=== PATIENT | female | born 1965 ===

== ENCOUNTER 2021-01-21 14:26 | Outpatient (REF) | payer MEDICARE, MEDICAID, SELFPAY ==
--- NOTE | 2021-01-22 08:26 | MHC.AU.P13 ---
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 We had held onto the right mold while it was sent out for repair, and the mold was placed back on the instrument. Patient arrived with the left hearing aid on her right ear, with an older right mold. It was uncertain where the left mold was. Impressions were taken bilaterally for a new set of molds. We will hold onto the left hearing aid for now so it does not get lost, as patient cannot use it without a left mold. The right instrument/mold was returned to the patient . Recommendations: Patient's residence will be contacted when the new molds have arrived. Programming may need to be updated for latest audiogram at next visit. Diagnosis Code(s): Primary Diagnosis: H90.3 Bilateral Sensorineural Hearing Loss Signature: Provider: Claudia Quesada, [facility]
== END 2021-01-21 14:27 | disposition home or self-care (01) ==
LOC: HO.HAP 14:26
PROVIDERS: Visit Provider Internal Medicine
DX: Z46.1 Encounter for fitting and adjustment of hearing aid (principal)
CPT/HCPCS: V5275

== ENCOUNTER 2021-02-21 09:07 | Outpatient (REF) | payer MEDICARE, MEDICAID, SELFPAY ==
[2021-02-21 10:54] LABS: Alanine Aminotransferase 41 U/L (0-31); Albumin Level 4.4 g/dL (3.5-5.0); Alkaline Phosphatase 71 U/L (39-117); Anion Gap 12 (12-20); Aspartate Amino Transferase 25 U/L (5-31); Bilirubin Total 0.4 mg/dL (0.0-1.0); Blood Urea Nitrogen 15 mg/dL (9-16); Calcium 10.3 mg/dL (8.4-10.2); Carbon Dioxide 29 mmol/L (22-29); Chloride 101 mmol/L (96-108); Cholesterol 188 mg/dL; Estimated Glomerular Filt Rate > 60; Glucose Fasting 72 mg/dL (60-99); HDL Cholesterol 48 mg/dL; LDL Cholesterol Calculated 117 mg/dl; Potassium 5.3 mmol/L (3.3-5.1); Sodium 137 mmol/L (135-145); Total Protein 7.8 g/dL (6.5-8.0); Triglycerides 119 mg/dL
[2021-02-25 11:07] LABS: Vitamin D 25-OH, D2 <4 ng/mL; Vitamin D 25-OH, D3 64 ng/mL; Vitamin D 25-OH, Total 64 ng/mL (30-100)
== END 2021-02-21 09:08 | disposition home or self-care (01) ==
LOC: HO.LAB 09:07
PROVIDERS: PCP Internal Medicine; Visit Provider Internal Medicine
DX: E55.9 Vitamin D deficiency, unspecified (principal); E78.5 Hyperlipidemia, unspecified; J30.9 Allergic rhinitis, unspecified
CPT/HCPCS: 36415; 80053; 80061; 82306

== ENCOUNTER 2021-04-21 12:57 | Outpatient (REF) | payer MEDICARE, MEDICAID, SELFPAY | END 2021-04-21 12:58 | disposition home or self-care (01) | LOC: HO.HAP 12:57 | PROVIDERS: Visit Provider Internal Medicine | DX: Z46.1 Encounter for fitting and adjustment of hearing aid (principal); H90.3 Sensorineural hearing loss, bilateral | CPT/HCPCS: V5264 ==

== ENCOUNTER 2021-10-02 10:25 | Outpatient (REF) | payer MEDICARE, MEDICAID, SELFPAY ==
--- NOTE | ~2021-10-02 | MM_ITS ---
EXAMINATION: MM SCREENING DIGITAL BREAST TOMOSYNTHESIS, BILATERAL CLINICAL INFORMATION: Screening. Asymptomatic. The lifetime risk of breast cancer based on the Tyrer-Cuzick Model is 7%. COMPARISON: Outside mammography: 09/13/2020, 09/12/2019, 09/11/2018 ([place], [place]). TECHNIQUE: Digital breast tomosynthesis is performed in both the craniocaudal and mediolateral oblique views along with computer-aided detection (CAD). Synthesized 2D images are generated from the tomosynthesis. FINDINGS: The breasts are heterogeneously dense, which may obscure small masses (ACR BI-RADS breast composition Category c). Parenchymal pattern is similar to prior outside exams. There is no interval mass or architectural abnormality or developing density. No abnormal calcifications. Low left axillary tail node on left MLO view is stable. The contours are smooth. No significant changes. MM/MM tomosynthesis screening BI IMPRESSION: No mammographic evidence of malignancy. ASSESSMENT: BI-RADS 2: Benign RECOMMENDATION: Routine annual mammography screening. This patient's information was entered into a reminder system with a target due date for their next mammogram.
== END 2021-10-02 10:26 | disposition home or self-care (01) ==
LOC: HO.MAMMO 10:25
PROVIDERS: Visit Provider Internal Medicine
DX: Z12.31 Encounter for screening mammogram for malignant neoplasm of breast (principal)
CPT/HCPCS: 77063; 77067

== ENCOUNTER 2022-03-30 12:40 | Outpatient (REF) | payer MEDICARE, MEDICAID, SELFPAY ==
--- NOTE | 2022-03-30 16:45 | MHC.AU.AHA ---
Adult Audiological Evaluation Date of Visit: 03/30/22 Reason for Appointment: Audiological re-evaluation to monitor the status of Matilde's hearing loss. She has a known severe to profound sensorineural hearing loss bilaterally, left ear worse than right. She uses hearing aids binaurally by primarily communicates with sign language. She notes that the hearing aids need maintenance. She denies any changes to her medical history since her previous visit. Previous Hearing Test Results: [facility] [place]- Severe to profound sensorineural hearing loss in the right ear. Profound sensorineural hearing loss in the left ear. Medical History: Medical History: Vitamin D deficiency, post nasal drip/allergies Allergies: NKDA Medication List: Prozac, Remeron, Vitamin D-3, Tylenol, IC Mapap Arthritis ER, Pepcid, Claritin D, Flonase, Lubricant eye-drops Hearing Instrument History- Right Ear: Offset Printer: Vive Unique Model: [employer] B50-UP Serial Number: [id number] Battery Size: 675 Repair Warranty: 04/17/2022 Loss and Damage Warranty: 04/17/2022 Dispensed By: [facility] Date of Fittin03/23/2019 Hearing Instrument History- Left Ear: Offset Printer: Vive Unique Model: Jami B50-UP Serial Number: [id number] Battery Size: 675 Warranty: 04/17/2022 Loss and Damage Warranty: 04/17/2022 Dispensed By: [facility] Date of Fittin03/23/2019 Otoscopy: Right Ear: Unremarkable Left Ear: Unremarkable Tympanometry: Tympanometry performed due to: To assess integrity of the middle ear system Right Ear: Hypercompliant Middle Ear System (Type Ad) Left Ear: Not performed at today's visit Hearing Evaluation: Transducer(s) Used: Insert Earphones, Bone Conduction Method: Conventional Audiometry Stimuli Used: Pure Tones Right Ear: Description of Hearing: Severe sensorineural hearing loss from 250-6000 Hz and a profound hearing loss at 8000 Hz. Left Ear: Description of Hearing: Profound sensorineural hearing loss from 250-8000 Hz. Speech Recognition Threshold (SRT): Method Used: Not performed at today's visit. Word Discrimination: Method: Not performed at today's visit. Comparison: Compared to the most recent evaluation: Hearing is stable. Recommendations: Audiological re-evaluation in one year. Hearing aid maintenance performed today. Cleaned aids and earmolds, replaced tubing. Battery doors were broken and replaced with stock parts. Replaced tone hooks as well as previous were very loose. Diagnosis: Primary Diagnosis: H90.3 Bilateral Sensorineural Hearing Loss Services Performed: Pure Tone- Air & Bone (CPT 50649) Tympanometry (CPT 97037) Signature: Provider: Claudia Lovett, CCC-A
== END 2022-03-30 12:41 | disposition home or self-care (01) ==
LOC: HO.SH 12:40
PROVIDERS: Visit Provider Internal Medicine
DX: Z01.118 Encounter for examination of ears and hearing with other abnormal findings (principal); H90.3 Sensorineural hearing loss, bilateral
CPT/HCPCS: 92553; 92567; 92593; V5266

== ENCOUNTER 2022-04-29 08:37 | Outpatient (REF) | payer MEDICARE, MEDICAID, SELFPAY ==
[2022-04-29 10:44] LABS: Alanine Aminotransferase 30 U/L (0-31); Albumin Level 4.3 g/dL (3.5-5.0); Alkaline Phosphatase 75 U/L (39-117); Anion Gap 14 (12-20); Aspartate Amino Transferase 25 U/L (5-31); Bilirubin Total 0.4 mg/dL (0.0-1.0); Blood Urea Nitrogen 18 mg/dL (9-16); Calcium 10.3 mg/dL (8.4-10.2); Carbon Dioxide 28 mmol/L (22-29); Chloride 103 mmol/L (96-108); Cholesterol 236 mg/dL; Estimated Glomerular Filt Rate > 60; Glucose Fasting 83 mg/dL (60-99); HDL Cholesterol 46 mg/dL; LDL Cholesterol Calculated 154 mg/dl; Potassium 5.3 mmol/L (3.3-5.1); Sodium 140 mmol/L (135-145); Total Protein 8.2 g/dL (6.5-8.0); Triglycerides 183 mg/dL
[2022-05-03 14:21] LABS: Vitamin D 25-OH, D2 <4 ng/mL; Vitamin D 25-OH, D3 68 ng/mL; Vitamin D 25-OH, Total 68 ng/mL (30-100)
== END 2022-04-29 08:38 | disposition home or self-care (01) ==
LOC: HO.LAB 08:37
PROVIDERS: PCP Internal Medicine; Visit Provider Internal Medicine
DX: Z00.00 Encounter for general adult medical examination without abnormal findings (principal); E55.9 Vitamin D deficiency, unspecified
CPT/HCPCS: 36415; 80053; 80061; 82306

== ENCOUNTER 2022-10-12 08:15 | Outpatient (REF) | payer MEDICARE, MEDICAID, SELFPAY ==
--- NOTE | ~2022-10-12 | MM_ITS ---
EXAMINATION: MM SCREENING DIGITAL BREAST TOMOSYNTHESIS, BILATERAL CLINICAL INFORMATION: Screening. Asymptomatic. COMPARISON: Mammography: 10/02/2021; outside mammography 09/13/2020, 09/12/2019 ([facility], [place]) TECHNIQUE: Digital breast tomosynthesis is performed in both the craniocaudal and mediolateral oblique views along with computer-aided detection (CAD). Synthesized 2D images are generated from the tomosynthesis. FINDINGS: The breasts are heterogeneously dense, which may obscure small masses (ACR BI-RADS breast composition Category c). Parenchymal pattern is similar to prior studies. There is no developing density or architectural abnormality. The axilla and skin contours are unremarkable. No significant changes. There are no significant masses, abnormal calcifications, or other abnormalities. MM/MM tomosynthesis screening BI IMPRESSION: No mammographic evidence of malignancy. ASSESSMENT: BI-RADS 1: Negative RECOMMENDATION: Routine annual mammography screening. This patient's information was entered into a reminder system with a target due date for their next mammogram.
== END 2022-10-12 08:16 | disposition home or self-care (01) ==
LOC: HO.MAMMO 08:15
PROVIDERS: PCP Internal Medicine; Visit Provider Internal Medicine
DX: Z12.31 Encounter for screening mammogram for malignant neoplasm of breast (principal)
CPT/HCPCS: 77063; 77067

== ENCOUNTER 2023-02-10 10:05 | Outpatient (REF) | payer MEDICARE, MEDICAID, SELFPAY ==
[2023-02-10 11:23] LABS: Alanine Aminotransferase 28 U/L (0-31); Albumin Level 4.2 g/dL (3.5-5.0); Alkaline Phosphatase 77 U/L (39-117); Anion Gap 12 (12-20); Aspartate Amino Transferase 24 U/L (5-31); Bilirubin Total 0.6 mg/dL (0.0-1.0); Blood Urea Nitrogen 16 mg/dL (9-16); Calcium 9.9 mg/dL (8.4-10.2); Carbon Dioxide 28 mmol/L (22-29); Chloride 106 mmol/L (96-108); Cholesterol 228 mg/dL; Estimated Glomerular Filt Rate > 60; Glucose Fasting 81 mg/dL (60-99); HDL Cholesterol 45 mg/dL; Potassium 4.6 mmol/L (3.3-5.1); Sodium 141 mmol/L (135-145); Total Protein 7.6 g/dL (6.5-8.0)
[2023-02-10 11:26] LABS: LDL Cholesterol Calculated 154 mg/dl; Triglycerides 147 mg/dL
== END 2023-02-10 10:06 | disposition home or self-care (01) ==
LOC: HO.LAB 10:05
PROVIDERS: PCP Internal Medicine; Visit Provider Internal Medicine
DX: Z00.00 Encounter for general adult medical examination without abnormal findings (principal); E55.9 Vitamin D deficiency, unspecified; E78.5 Hyperlipidemia, unspecified
CPT/HCPCS: 36415; 80053; 80061; 82306

== ENCOUNTER 2023-06-14 11:09 | Outpatient (AMB) | payer MEDICARE, MEDICAID, SELFPAY ==
[2023-06-14 11:13] VITALS: BP 110/70; BMI 22.9
--- NOTE | 2023-06-14 11:13 | MHC.PC.OV ---
Vital Signs 06/14/23 11:13 Height 5 ft 1 in Weight 121 lb BMI 22.9 BP 110/70 Blood Pressure Location Lt brachial Position Sitting Intake Visit Reasons: lipids Intake Note: patient here for a follow up lipids, referral to Gastro request Bellows Filler Required: No Accompanied by: program worker Allergies No Known Allergies [No Known Allergies*] Allergy (Verified 06/14/23 11:22) Medication List - Last Reconciled 06/14/23 by Lisa Rey MD acetaminophen ER 650 mg PO Q4H PRN 30 days atorvastatin 20 mg PO BEDTIME 90 days cholecalciferol (vitamin D3) (Vitamin D3) 50 mcg PO QAM famotidine 20 mg PO BID fluoxetine (Prozac) 10 mg PO DAILY fluticasone propionate 50 mcg/actuation 2 sprays intranasal DAILY 30 days lactase (Lactaid) 3,000 units PO QID PRN loratadine-pseudoephedrine 10-240 mg ER (Claritin-D 24 Hour) 1 tab PO DAILY 30 days mirtazapine (Remeron) 30 mg PO BEDTIME polymyxin B sulf-trimethoprim 10,000 unit- 1 mg/mL (Polytrim) 1 drp ophthalmic (eye) QID 7 days Tobacco use date assessed: 04/27/23 Dental Screening Dental Screen Date: 06/14/23 Did you have a dental visit in the last 12 months?: Yes Did you have a dental problem in the last 6 months where you did not have access to dental care?: No Was dental information given to patient?: Patient has dentist (last check up 05/05/23) HPI HPI Comments History of Present Illness Details This is a 57-year-old female with pure hypercholesterolemia, mild recurrent major depression and low vitamin-D that comes accompanied by staff member complaining of abdominal pain that has been present for over 4 months. I did refer her to Gastroenterology January 2023 but they have not heard from them. She is deaf mute. Cholesterol was elevated the last time and I will repeat lipid panel. Depression stable with SSRIs. Vitamin-D levels will also be repeated. No chest pain or shortness of breath. [facility] Medical History (Updated 06/14/23 @ 12:15 by Lisa Rey MD) Allergic rhinitis Blind right eye Chronic cough Deaf mutism, congenital Depression Developmental delay, mild Encounter for physical examination Hypovitaminosis D Insomnia Mild recurrent major depression Surgical History No pertinent past surgical history Family History Father Stroke Mother Diabetes Family/Other FH: mental illness Social History Housing: Other ([facility]) Alcohol intake: never Patient Tobacco Use Status: Never used Tobacco e-Cigarette/Vaping Use: Never Used Second Hand Smoke Exposure: No service: No Current occupational status: disabled Cognitive needs: No Hearing needs: No Vision needs: No Questionnaire Thrive Questionnaire Date Thrive assessed: 02/08/23 THAI-7 AMB Questionnaire THAI-7 Date THAI - 7 assessed: 02/08/23 Source: Developed by Drs. Tim Lester, Hafsa Parsons, Navjot Calvo and colleagues, with an educational yasmine from [employer]. Review of Systems Const All systems reviewed & are unremarkable except as noted in HPI and below Eyes Reports no additional complaints, Denies change in vision and Denies other visual disturbances Card Denies chest pain at rest, Denies chest pain with activity, Denies edema, Denies irregular heart rhythm, Denies claudication, Denies dyspnea, Denies dyspnea on exertion, Denies orthopnea, Denies paroxysmal nocturnal dyspnea and Denies slow heart rate Resp Denies cough, Denies dyspnea and Denies dyspnea on exertion GI Reports abdominal pain, Denies change in bowel habits, Denies excessive flatus, Denies nausea and Denies vomiting Denies urinary incontinence, Denies urinary hesitancy and Denies urinary urgency Musc Denies abnormal gait, Denies atrophy, Denies deformity and Denies limited range of motion Skin/Breast Denies bleeding lesions, Denies changing lesions and Denies rash Neuro Denies abnormal gait and Denies lack of coordination Physical exam (Primary Care) Vital Signs: Last Vital Signs BP 110/70 06/14/23 11:13 BMI result Body Mass Index 22.9 Tobacco/Smoking Status: Tobacco use Status Tobacco use date assessed 04/27/23 06/14/23 11:21 Patient Tobacco Use Status Never used Tobacco 06/14/23 11:21 e-Cigarette/Vaping Use Never Used 06/14/23 11:21 Thrive Assessment: Date of Thrive Assessment Date Thrive assessed 02/08/23 06/14/23 11:21 Eyes General: appearance normal, both eyes and all related structures Eyelids: Yes eyelids normal Conjunctivae: conjunctivae normal Neck Neck: Yes normal visual inspection and Yes supple Resp Effort & Inspection: normal respiratory effort Auscultation: clear to auscultation bilaterally Cardio Jugular venous distension: no JVD Rate: regular rate Rhythm: regular rhythm Heart sounds: S1 normal heart sound present and S2 normal heart sound present GI Inspection: Yes normal to inspection Palpation (GI): Soft to palpation and nontender Auscultation: normal bowel sounds Extrem General: Yes full ROM Assessment and Plan Assessment & Plan (1) Mild recurrent major depression: Code(s): F33.0 - Major depressive disorder, recurrent, mild Plan: Continue SSRIs (2) Hypovitaminosis D: Code(s): E55.9 - Vitamin D deficiency, unspecified Plan: Continue vitamin-D supplements (3) Abdominal pain: Code(s): R10.9 - Unspecified abdominal pain Plan: Referral to Gastroenterology was change to a urgent. (4) Pure hypercholesterolemia: Code(s): E78.00 - Pure hypercholesterolemia, unspecified Plan: Continue statins. Repeat lipid panel. Orders: Orders Comprehensive [place]. Panel Fast Today R10.9 - Unspecified abdominal pain Lipid Panel Today E78.5 - Hyperlipidemia, unspecified Vitamin D 25-OH Total Today E55.9 - Vitamin D deficiency, unspecified Medications: Discontinued polymyxin B sulf-trimethoprim 10,000 unit- 1 mg/mL (Polytrim) while awake; do not exceed 6 doses in 24 hours Discontinued Reason: Patient Completed Course 1 drp ophthalmic (eye) QID 7 days 10 mL 0RF H10.32 - Unspecified acute conjunctivitis, left eye Coding Level of Care Code Est Pt Level 4 (40189) Diagnoses Mild recurrent major depression F33.0 Hypovitaminosis D E55.9 Abdominal pain R10.9 Pure hypercholesterolemia E78.00 Time Spent (min) 23
== END 2023-06-14 11:33 | disposition home or self-care (01) ==
PROVIDERS: Visit Provider Internal Medicine
DX: F33.0 Major depressive disorder, recurrent, mild (principal); E55.9 Vitamin D deficiency, unspecified; R10.9 Unspecified abdominal pain; E78.00 Pure hypercholesterolemia, unspecified
CPT/HCPCS: 99214

== ENCOUNTER 2023-06-24 08:00 | Outpatient (REF) | payer MEDICARE, MEDICAID, SELFPAY | END 2023-06-24 08:01 | disposition home or self-care (01) | LOC: HO.SH 08:00 | PROVIDERS: Visit Provider Internal Medicine | DX: Z01.118 Encounter for examination of ears and hearing with other abnormal findings (principal); H90.3 Sensorineural hearing loss, bilateral | CPT/HCPCS: 92553; 92567; 99499; V5266 ==

== ENCOUNTER 2023-06-28 14:24 | Outpatient (AMB) | payer MEDICARE, MEDICAID, SELFPAY ==
--- NOTE | 2023-06-28 14:37 | A.OFFVIS_ITS ---
Intake Vital Signs 06/28/23 14:38 Height 5 ft 1 in Weight 121 lb BMI 22.9 BP 121/56 L Blood Pressure Location Lt brachial Position Sitting Pulse 84 Intake Visit Reasons: Abdominal pain Intake Note: Matilde presents in the office as a new patient for abdominal pains. CC: She is here today because she is having pains in her stomach and sometimes she has vomiting. She will have pains in her back as well. She will have diarrhea. Catering Administrative Assistant Required: Yes Catering Administrative Assistant Name: [id number] [place] Allergies No Known Allergies [No Known Allergies*] Allergy (Verified 06/28/23 14:38) HPI HPI Comments History of Present Illness Details 57 y.o F with PMH of deafness, MDD, allergic rhinitis, who is here for abdominal pain x 1 year. Accompanied by her direct care . Pt initially requested an ASL but later reported that she does not understand ASL as well and therefore most of hte hx was obtained by her attendant. Reports abdominal pain started almost a year ago assoc with occasional vomiting. Also had been having diarrhea which improved with lactose free milk however pt went back to regular milk. Was started on pepcid 20 BID by PCP which has not helped her sx much. Does not appear to have had CRC screening. [facility] Medical History (Updated 06/28/23 @ 15:58 by Jen Zavala MD) Allergic rhinitis Blind right eye Chronic cough Deaf mutism, congenital Depression Developmental delay, mild Encounter for physical examination Hypovitaminosis D Insomnia Mild recurrent major depression Surgical History (Updated 06/28/23 @ 14:43 by MARSHAL De León) Hx of colonoscopy No pertinent past surgical history Family History Father Stroke Mother Diabetes Family/Other FH: mental illness Social History Housing: Other Alcohol intake: never Patient Tobacco Use Status: Never used Tobacco e-Cigarette/Vaping Use: Never Used Second Hand Smoke Exposure: No service: No Current occupational status: disabled Cognitive needs: No Hearing needs: No Vision needs: No Review of Systems Const All systems reviewed & are unremarkable except as noted in HPI and below Physical Exam Vital Signs: Last Vital Signs Pulse 84 06/28/23 14:38 BP 121/56 L 06/28/23 14:38 BMI result Body Mass Index 22.9 Gen appear: NAD HEENT: nonicteric, no cervical lymphadenopathy Chest: CTA CVS: Regular S1/S2 Abd: soft, nontender, nondistended, bowel sounds + Ext: no peripheral edema Neuro: A/Ox3, noted to move all extremities spontaneously Psych: interacting appropriately Assessment & Plan Assessment & Plan (1) Abdominal pain: Code(s): R10.9 - Unspecified abdominal pain (2) Change in bowel habit: Code(s): R19.4 - Change in bowel habit Plan DDx certainly include lactose intolerance carl since sx resolved when she briefly on lactose free milk. Will also order work up for malabsorption, celiac, IBD, biliary cause. In the meantime, pt encouraged to go back to lactose free milk for control of sx. Follow up in 6 weeks. Orders: Orders Complete Blood Count no Diff Today R10.9 - Unspecified abdominal pain Ferritin Today R10.9 - Unspecified abdominal pain IRON PROFILE Today R10.9 - Unspecified abdominal pain Transglutaminase IgA Today R10.9 - Unspecified abdominal pain Immunoglobulin A Today R10.9 - Unspecified abdominal pain TSH reflex Free T4 Today R10.9 - Unspecified abdominal pain C Reactive Protein Today R10.9 - Unspecified abdominal pain Calprotectin, Fecal Today R10.9 - Unspecified abdominal pain US abdomen complete Today R10.9 - Unspecified abdominal pain Coding Level of Care Code New Pt Level 5 (24570) Diagnoses Abdominal pain R10.9 Change in bowel habit R19.4
[2023-06-28 14:38] VITALS: BP 121/56; PULSE 84; BMI 22.9
== END 2023-06-28 15:04 | disposition home or self-care (01) ==
PROVIDERS: PCP Nurse Practitioner Family; Visit Provider Internal Medicine
DX: R10.9 Unspecified abdominal pain (principal); R19.4 Change in bowel habit
CPT/HCPCS: 99204

== ENCOUNTER → 2023-06-28 14:24 | Outpatient (BNVA) | payer MEDICARE, MEDICAID, SELFPAY | PROVIDERS: PCP Nurse Practitioner Family; Visit Provider Internal Medicine | DX: R10.9 Unspecified abdominal pain (principal); R19.4 Change in bowel habit | CPT/HCPCS: 99202 ==

== ENCOUNTER 2023-07-27 07:59 | Outpatient (REF) | payer MEDICARE, MEDICAID, SELFPAY ==
--- NOTE | ~2023-07-27 | US_ITS ---
EXAMINATION: US ABDOMEN COMPLETE CLINICAL INFORMATION: Unspecified abdominal pain. COMPARISON: None available. TECHNIQUE: Real-time imaging of the abdominal viscera. Technically difficult study secondary to bowel gas. FINDINGS: PANCREAS: The pancreas is partially obscured by bowel gas. The visualized portion appears unremarkable. ABDOMINAL AORTA: The proximal, mid, and distal segments are normal in caliber. INFERIOR VENA CAVA: Visualized portions are normal. LIVER: The liver is normal in size. The liver contour is normal. A 4 mm echogenic focus is seen in the left lobe which is of uncertain significance, possibly representing a small calcification. No hepatic mass is demonstrated. There is no intrahepatic biliary duct dilatation seen. GALLBLADDER: Normal. The gallbladder is physiologically distended without evidence of stones, sludge, polyps, wall thickening or pericholecystic fluid. COMMON BILE DUCT: Normal in caliber measuring 0.8 cm in diameter, tapering distally. No obstructing lesion is appreciated. RIGHT KIDNEY: No hydronephrosis. No renal calculi or focal parenchymal lesions. The kidney measures 8.4 cm in maximum dimension. LEFT KIDNEY: No hydronephrosis. No renal calculi or focal parenchymal lesions. The kidney measures 8.5 cm in maximum dimension. SPLEEN: Normal. The spleen measures 8.9 cm in maximum dimension. FREE FLUID: None. US/US abdomen complete IMPRESSION: The common bile duct appears focally prominent, without convincing evidence of pathologic dilatation. Clinical and laboratory correlation is recommended. 4 mm hyperechoic focus in the left lobe of liver is nonspecific, possibly representing a parenchymal calcification. This is of doubtful clinical significance.
[2023-07-27 09:00] LABS: Hematocrit 38.8 % (37.0-47.0); Mean Corpuscular HGB Conc 33.5 g/dl (31.0-35.0); Mean Corpuscular Hemoglobin 30.4 pg (27.0-33.0); Mean Corpuscular Volume 90.7 fL (80.0-98.0); Platelet Count 254 X10*3/uL (160-400); Red Blood Count 4.28 X10*6/uL (4.20-5.50); Red Cell Distribution Width 12.2 % (11.0-16.0); White Blood Count 5.9 X10*3/uL (4.8-10.8)
[2023-07-27 09:32] LABS: C Reactive Protein < 0.10 mg/dL (< or = 0.50); Iron 103 mcg/dL (30-160); Percent Iron Saturation 36 % (15-50); Total Iron Binding Capacity 288 mcg/dL (228-428); Unsaturated Iron Binding 185 ug/dL
[2023-07-27 09:50] LABS: Ferritin 48 ng/mL (10-250); TSH reflex Free T4 1.72 uIU/mL (0.32-4.0)
[2023-07-28 13:33] LABS: Transglutaminase IgA <1.0 U/mL
[2023-07-29 13:43] LABS: Immunoglobulin A 374 mg/dL (47-310)
== END 2023-07-27 08:00 | disposition home or self-care (01) ==
LOC: HO.US 07:59
PROVIDERS: Absent Provider Internal Medicine; PCP Internal Medicine; Visit Provider Internal Medicine
DX: R10.9 Unspecified abdominal pain (principal)
CPT/HCPCS: 36415; 76700; 82728; 82784; 83540; 84443; 85027; 86140; 86364

== ENCOUNTER 2023-08-17 08:00 | Outpatient (RCR) | payer MEDICARE, MEDICAID, SELFPAY ==
--- NOTE | 2023-07-26 18:32 | MHC.PT.EP ---
[facility] [place] Office [place] Office [place] Office [address] Sal Wheeler [address] [phone] F: [phone] F: [phone] F: [phone] F: [phone] Physical Therapy Plan of Care Date of Evaluation: Date of Surgery: N/A Diagnosis: sciatica, right side Assessment: Pt is a 57yo F referred to PT for sciatica. collet driller used for PT evaluation and pt's systems programmer analyst present for PT evaluation. Pt presents to PT with current impairments in pain, decreased lumbar ROM, posterior chain tightness, soft tissue restrictions, and impaired posture. Unable to formally assess MMT and sensation of B LE's as pt was unable to follow instructions for assessment consistently. She is limited functionally by prolonged standing, prolonged walking, and laying flat. She is a good candidate for skilled PT to address current impairments to facilitate return to PLOF. She is recommended to be seen 2x/week for 4 weeks and will be reassessed at that time. Frequency and Duration: The patient will be seen 2x/week for 4 weeks Short Term Goals: Pt will be I with HEP to promote self management of symptoms Pt will have centralization of symptoms Retirement Goals: Pt will achieve full ROM all planes of lumbar spine with minimal to no discomfort Pt will tolerate standing and walking > 30 min with minimal to no discomfort Treatment Plan: Modalities to reduce pain, spasms and effusion. Manual therapy to restore motion and function. Therapeutic exercise to improve strength and flexibility. Neuromuscular re-education for posture and balance. Therapeutic activities to return to functional activities of daily living. Electronically signed by: Joanna Lawrence, PT, DPT Please sign and return to therapist. Thank you for your referral.
--- NOTE | 2023-11-24 15:47 | MHC.PT.DC ---
[facility] [place] Office [place] Office [place] Office [address] [place] [address] [phone] F: [phone] F: [phone] F: [phone] F: [phone] Physical Therapy Discharge Report Diagnosis: sciatica, right side Date of Surgery: N/A Date of Evaluation: 07/25/23 Date of Discharge: 11/24/23 Treatments to Date: 5 Cancellations to Date: No Shows to Date: 2 Discharge Status: Discharge Summary: Pt was seen for skilled PT from 07/25/23-08/17/23. Pt last attended visit was 08/17/23. She had a no-show for her last 2 scheduled appointments. She is being D/C from skilled PT for visit non-compliance as she has not attended in > 30 days. Pt current level of function unknown at this time Electronically signed by: Joanna Lawrence, PT, DPT Please sign and return to therapist. Thank you for your referral.
== END 2023-11-24 15:46 | disposition home or self-care (01) ==
LOC: HO.PT 08:00
PROVIDERS: PCP Nurse Practitioner Family; Visit Provider Nurse Practitioner Family
DX: M54.31 Sciatica, right side (principal)
CPT/HCPCS: 97110; 97162

== ENCOUNTER 2023-08-26 12:32 | Outpatient (REF) | payer MEDICARE, MEDICAID, SELFPAY ==
[2023-09-02 02:14] LABS: Calprotectin, Fecal 26 mcg/g
== END 2023-08-26 12:33 | disposition home or self-care (01) ==
LOC: HO.CHCLNP 12:32
PROVIDERS: Visit Provider Internal Medicine
DX: R10.9 Unspecified abdominal pain (principal)
CPT/HCPCS: 83993

== ENCOUNTER 2023-09-21 13:08 | Outpatient (AMB) | payer MEDICARE, MEDICAID, SELFPAY ==
--- NOTE | 2023-09-21 13:14 | A.OFFVIS_ITS ---
Intake Vital Signs 09/21/23 13:16 Height 5 ft 1 in Weight 119 lb 0.794 oz BMI 22.5 BP 111/59 L Blood Pressure Location Lt brachial Position Sitting Pulse 90 Intake Visit Reasons: follow up missed 08/30 Intake Note: Matilde presents in the office as a follow up. CC: She would like to know if a EGD and COLO is something that you are going to consider. She states that she is having pains in her stomach and she has acid that comes up but it feels like vomit but she is not actually vomiting. She is having bowel movements and they are regular. General Maintenance Mechanic Required: Yes General Maintenance Mechanic Name: [id number] Rowan Allergies No Known Allergies [No Known Allergies*] Allergy (Verified 09/21/23 13:18) HPI HPI Comments History of Present Illness Details 57 y.o F with PMH of deafness, MDD, fredy rgic rhinitis, who is here for abdominal pain x 1 year. Accompanied by her direct care . 06/28/23: Pt initially requested an ASL but later reported that she does not understand ASL as well and therefore most of hte hx was obtained by her attendant. Reports abdominal pain started almost a year ago assoc with occasional vomiting. Also had been having diarrhea which improved with lactose free milk however pt went back to regular milk. Was started on pepcid 20 BID by PCP which has not helped her sx much. Does not appear to have had CRC screening. 09/21/23: Again here with her direct care. ASL available online but again state that pt is signing in non-ASL and therefore encounter was carried out with the help of her direct care provider. Pt reports difficulty swallowing certain foods such as meat, hard vegetables. Pt reports vomiting with this but direct care mentions regurgitation has been occ witnessed. With this also reports hearburn sometimes. Does not complain of obvious abd pain today. No pain on swallowing. No unintentional weight loss. No change in bowel habits. Reviewed labs with her and her attendant that all are grossly normal. No sludge or gallstones noted on US Abd. [facility] Medical History Mild recurrent major depression Encounter for physical examination Chronic cough Blind right eye Developmental delay, mild Deaf mutism, congenital Allergic rhinitis Hypovitaminosis D Insomnia Depression Surgical History Hx of colonoscopy No pertinent past surgical history Family History Father Stroke Mother Diabetes Family/Other FH: mental illness Social History Housing: Other Alcohol intake: never Patient Tobacco Use Status: Never used Tobacco e-Cigarette/Vaping Use: Never Used Second Hand Smoke Exposure: No service: No Current occupational status: disabled Cognitive needs: No Hearing needs: No Vision needs: No Review of Systems Const Details: limited ROS obtained as above Physical Exam Vital Signs: Last Vital Signs Pulse 90 09/21/23 13:16 BP 111/59 L 09/21/23 13:16 BMI result Body Mass Index 22.5 Gen appear: NAD HEENT: nonicteric, no cervical lymphadenopathy Chest: CTA CVS: Regular S1/S2 Abd: soft, nontender, nondistended, bowel sounds + Ext: no peripheral edema Neuro: A/Ox3, noted to move all extremities spontaneously Psych: repeats same complaint of gagging and vomiting but able to answer most questions Assessment & Plan Assessment & Plan (1) Dysphagia: Code(s): R13.10 - Dysphagia, unspecified (2) Regurgitation of stomach contents: Code(s): R11.10 - Vomiting, unspecified (3) Chronic heartburn: Code(s): R12 - Heartburn (4) Encounter for colorectal cancer screening: Code(s): Z12.11 - Encounter for screening for malignant neoplasm of colon; Z12.12 - Encounter for screening for malignant neoplasm of rectum Plan Ddx include reflux with esophagitis, stricture, web/ring, EoE, dysmotility. Will set her up for EGD +/- dilation for further evaluation. Since she is also due for a screening colonoscopy this will be set up at e same time. Plan: - EGD +/- dil and colo - PEG prep instructions were reviewed - night before instructions given for logistical feasibility. - Pt and caterpillar mechanic advised to cut up food in very small pieces and to chew thoroughly in the meanwhile Follow up after scopes Medications: New peg 3350-electrolytes 236-22.74-6.74 -5.86 gram (Golytely) as per prep instructions, until fecal effluent is clear 240 mL PO Q10M 4,000 mL 0RF colonoscopy Coding Level of Care Code Est Pt Level 4 (24080) Diagnoses Dysphagia R13.10 Regurgitation of stomach contents R11.10 Chronic heartburn R12 Encounter for colorectal cancer screening Z12.11; Z12.12
[2023-09-21 13:16] VITALS: BP 111/59; PULSE 90; BMI 22.5
== END 2023-09-21 14:58 | disposition home or self-care (01) ==
PROVIDERS: PCP Internal Medicine; Visit Provider Internal Medicine
DX: R13.10 Dysphagia, unspecified (principal); R11.10 Vomiting, unspecified; R12 Heartburn; Z12.11 Encounter for screening for malignant neoplasm of colon; Z12.12 Encounter for screening for malignant neoplasm of rectum
CPT/HCPCS: 99214

== ENCOUNTER → 2023-09-21 13:08 | Outpatient (BNVA) | payer MEDICARE, MEDICAID, SELFPAY | PROVIDERS: PCP Internal Medicine; Visit Provider Internal Medicine | DX: Z12.11 Encounter for screening for malignant neoplasm of colon (principal); Z12.12 Encounter for screening for malignant neoplasm of rectum; R11.10 Vomiting, unspecified; R13.10 Dysphagia, unspecified; R12 Heartburn | CPT/HCPCS: 99212 ==

== ENCOUNTER 2023-10-21 08:24 | Outpatient (REF) | payer MEDICARE, MEDICAID, SELFPAY | END 2023-10-21 08:25 | disposition home or self-care (01) | LOC: HO.MAMMO 08:24 | PROVIDERS: PCP Internal Medicine; Visit Provider Internal Medicine | DX: Z12.31 Encounter for screening mammogram for malignant neoplasm of breast (principal) | CPT/HCPCS: 77063; 77067 ==

== ENCOUNTER → 2023-10-21 08:30 | Outpatient (BNV) | payer MEDICARE, MEDICAID, SELFPAY | PROVIDERS: PCP Internal Medicine; Visit Provider Radiology Diagnostic Radiology | DX: Z12.31 Encounter for screening mammogram for malignant neoplasm of breast (principal) | CPT/HCPCS: 77063; 77067 ==

== ENCOUNTER 2024-02-13 09:31 | Outpatient (AMB) | payer MEDICARE, MEDICAID, SELFPAY ==
--- NOTE | 2024-02-13 09:33 | MHC.PC.OV ---
Vital Signs 02/13/24 09:35 Height 5 ft 1 in Weight 119 lb BMI 22.5 BP 120/68 Blood Pressure Location Lt brachial Position Sitting Intake Visit Reasons: Annual Exam Intake Note: Patient here for an annual physical exam Educational Fundraising Director Required: No Accompanied by: staff Allergies No Known Allergies [No Known Allergies*] Allergy (Verified 02/13/24 09:49) Medication List - Last Reconciled 02/13/24 by Lisa Rey MD acetaminophen ER 650 mg PO Q4H PRN 30 days atorvastatin 20 mg PO BEDTIME 90 days cholecalciferol (vitamin D3) (Vitamin D3) 50 mcg PO QAM famotidine 20 mg PO BID fluoxetine (Prozac) 10 mg PO DAILY fluticasone propionate 50 mcg/actuation 2 sprays intranasal DAILY 30 days loratadine-pseudoephedrine 10-240 mg ER (Claritin-D 24 Hour) 1 tab PO DAILY 30 days mirtazapine (Remeron) 30 mg PO BEDTIME Tobacco use date assessed: 02/13/24 Dental Screening Dental Screen Date: 02/13/24 Did you have a dental visit in the last 12 months?: Yes Did you have a dental problem in the last 6 months where you did not have access to dental care?: No Was dental information given to patient?: Patient has dentist HPI HPI Comments History of Present Illness Details This is a 58-year-old female with congenital deaf mutism and mild recurrent major depression that comes accompanied by staff member for her physical exam. She will need ear, nose, throat referral for her hearing loss. Depression has been follow by Psychiatry and has been stable. Declines Pap smear. Colonoscopy with endoscopy will be done this month. Mammogram done September 2023 and was normal. No chest pain or shortness of breath. Complains of left leg pain that started few weeks ago. Ultrasound venous duplex of left lower leg well be ordered to rule out DVT. Also has some vein insufficiency. [facility] Medical History (Updated 02/13/24 @ 10:08 by Lisa Rey MD) Mild recurrent major depression Encounter for physical examination Chronic cough Blind right eye Developmental delay, mild Deaf mutism, congenital Allergic rhinitis Hypovitaminosis D Insomnia Depression Surgical History Hx of colonoscopy Family History Father Stroke Mother Diabetes Family/Other FH: mental illness Social History Housing: Other Alcohol intake: never Patient Tobacco Use Status: Never used Tobacco e-Cigarette/Vaping Use: Never Used Second Hand Smoke Exposure: No service: No Current occupational status: disabled Cognitive needs: No Hearing needs: Yes Vision needs: Yes Questionnaire PHQ-9 Over the last 2 weeks, how often have you been bothered by any of the following problems? 1. Little interest or pleasure in doing things: not at all 2. Feeling down, depressed, or hopeless: not at all 3. Trouble falling or staying asleep, or sleeping too much: not at all 4. Feeling tired or having little energy: not at all 5. Poor appetite or overeating: not at all 6. Feeling bad about yourself - or that you are a failure or have let yourself or your family down: not at all 7. Trouble concentrating on things, such as reading the newspaper or watching television: not at all 8. Moving or speaking so slowly that other people could have noticed. Or the opposite - being so fidgety or restless that you have been moving around a lot more than usual: not at all 9. Thoughts that you would be better off or of hurting yourself in some way: not at all Total score: 0 Depression Screening Interpretation: Negative Depression Screening Done: Yes 43170 - PHQ-9 Billing: Yes Source: Developed by Drs. Tim Lester, Hafsa Parsons, Navjot Calvo and colleagues, with an educational yasmine from [employer]. Thrive Questionnaire Date Thrive assessed: 02/13/24 I am a: Parent/Caregiver What is your living situation today?: I have a steady place to live Within the past 12 months, did the food you bought not last and you didn't have the money to get more?: Never true Within the past 12 months, did you worry whether your food would run out before you got money to buy more?: Never true Do you have trouble paying for medicines?: No Do you have trouble getting transportation to medical appointments?: No Do you have trouble paying your heating and electricity bill?: No Do you have trouble taking care of your child, family member or friend?: No Do you have trouble with day-to-day activities such as bathing, preparing meals, shopping, managing finances, etc.?: No Are you currently unemployed and looking for a job?: No Are you interested in more education?: No Please select the resources that you would like help with: None Currently or been in a relationship where the following occur: no concerns reported THRIVE Score: 0 AUDIT C Alcohol Use Questionnaire (AUDIT-C) 1. How often do you have a drink containing alcohol?: Never Total Score: 0 THAI-7 AMB Questionnaire THAI-7 Date THAI - 7 assessed: 02/13/24 Feeling nervous, anxious, or on edge: 0 = Not at all Not being able to stop or control worryin = Not at all Worrying too much about different things: 0 = Not at all Trouble relaxin = Not at all Being so restless that it is hard to sit still: 0 = Not at all Becoming easily annoyed or irritable: 0 = Not at all Feeling afraid as if something awful might happen: 0 = Not at all Total THAI-7 score (0-4 normal; 5-9 mild; 10-14 moderate; 15-21 severe): 0 Source: Developed by Drs. Tim Lester, Hafsa Parsons, Navjot Calvo and colleagues, with an educational yasmine from [employer]. THAI-7 Assessment Billing THAI-7 Assessment Tool: THAI-7 Assessment 73225 Review of Systems Const All systems reviewed & are unremarkable except as noted in HPI and below Eyes Reports no additional complaints, Denies change in vision and Denies other visual disturbances Card Denies chest pain at rest, Denies chest pain with activity, Denies edema, Denies irregular heart rhythm, Denies claudication, Denies dyspnea, Denies dyspnea on exertion, Denies orthopnea, Denies paroxysmal nocturnal dyspnea and Denies slow heart rate Resp Denies cough, Denies dyspnea and Denies dyspnea on exertion GI Denies abdominal pain, Denies change in bowel habits, Denies excessive flatus, Denies nausea and Denies vomiting Denies urinary incontinence, Denies urinary hesitancy and Denies urinary urgency Musc Denies atrophy, Denies deformity and Denies limited range of motion Physical exam (Primary Care) Vital Signs: Last Vital Signs BP 120/68 02/13/24 09:35 BMI result Body Mass Index 22.5 Tobacco/Smoking Status: Tobacco use Status Tobacco use date assessed 02/13/24 02/13/24 09:46 Patient Tobacco Use Status Never used Tobacco 02/13/24 09:46 e-Cigarette/Vaping Use Never Used 02/13/24 09:46 PHQ-9: PHQ-9 Score PHQ-9: Total score 0 02/13/24 09:55 Depression Screening Interpretation: Negative Thrive Assessment: Date of Thrive Assessment Date Thrive assessed 02/13/24 02/13/24 09:46 Currently or been in a relationship where the following occur: no concerns reported Const Orientation/consciousness: patient oriented x3 HENID Head: Yes normal to inspection, Yes normocephalic and Yes atraumatic Ears: external ears normal Eyes General: appearance normal, both eyes and all related structures Eyelids: Yes eyelids normal Conjunctivae: conjunctivae normal Neck Neck: Yes normal visual inspection and Yes supple Resp Effort & Inspection: normal respiratory effort Auscultation: clear to auscultation bilaterally Cardio Jugular venous distension: no JVD Rate: regular rate Rhythm: regular rhythm Heart sounds: S1 normal heart sound present and S2 normal heart sound present GI Inspection: Yes normal to inspection Palpation (GI): Soft to palpation and nontender Auscultation: normal bowel sounds Skin General skin exam: no rashes or lesions noted Neuro General: patient oriented x3 and no focal motor deficits Extrem Other: left chandler's positive General: Yes full ROM Psych Appearance: grossly normal Assessment and Plan Assessment & Plan (1) Physical exam: Code(s): Z00.00 - Encounter for general adult medical examination without abnormal findings Plan: Repeat in a year. (2) Mild recurrent major depression: Code(s): F33.0 - Major depressive disorder, recurrent, mild Plan: Follow-up with psychiatry. Orders: Orders US venous duplex LE LT Today M79.605 - Pain in left leg Lipid Panel Today E78.5 - Hyperlipidemia, unspecified Comprehensive Met. Panel Today Z00.00 - Encounter for general adult medical examination without abnormal findings Vitamin D 25-OH Total Today E55.9 - Vitamin D deficiency, unspecified Referrals Vascular Surgery Referral I87.2 - Venous insufficiency (chronic) (peripheral) Ear/Nose/Throat Referral H91.90 - Unspecified hearing loss, unspecified ear Coding Level of Care Code Est Pt Prev Care 40-64y(82283) Diagnoses Physical exam Z00.00 Mild recurrent major depression F33.0 Additional Codes THAI-7 Assessment Billing - THAI-7 Assessment Tool: THAI-7 Assessment 96189 ([id number]) Time Spent (min) 33
[2024-02-13 09:35] VITALS: BP 120/68; BMI 22.5
== END 2024-02-13 10:08 | disposition home or self-care (01) ==
PROVIDERS: Visit Provider Internal Medicine
DX: Z00.00 Encounter for general adult medical examination without abnormal findings (principal); F33.0 Major depressive disorder, recurrent, mild; H91.3 Deaf nonspeaking, not elsewhere classified; M79.605 Pain in left leg
CPT/HCPCS: 99396

== ENCOUNTER 2024-02-13 10:28 | Outpatient (REF) | payer MEDICARE, MEDICAID, SELFPAY ==
--- NOTE | ~2024-02-13 | US_ITS ---
EXAMINATION: US VENOUS ULTRASOUND WITH DOPPLER LOWER EXTREMITY, LEFT CLINICAL INFORMATION: Left lower extremity pain COMPARISON: None available. TECHNIQUE: Ultrasound of the deep veins is performed from the hip to the calf with compression sonography and color and pulse Doppler assessment. Spectral analysis with color-flow imaging is performed. FINDINGS: There is normal venous compression and respiratory variation and augmented flow. The visualized common femoral vein, superficial femoral vein, profunda femoral vein, popliteal vein, and the trifurcation region shows no evidence of deep venous thrombosis. There is a 3.5 x 0.8 x 2.2 cm Guillory's cyst present . If the patient's symptoms persist, followup ultrasound in 5 days 7 days might be of value to exclude proximal propagation from a non-visualized calf vein. US/US venous duplex LE IMPRESSION: No DVT demonstrated in the left lower extremity.
== END 2024-02-13 10:29 | disposition home or self-care (01) ==
LOC: HO.US 10:28
PROVIDERS: Visit Provider Internal Medicine
DX: M79.605 Pain in left leg (principal)
CPT/HCPCS: 93971

== ENCOUNTER 2024-02-23 06:13 | Day surgery (SDC) | payer MEDICARE, MEDICAID, SELFPAY ==
--- NOTE | 2024-02-22 09:47 | HO.ANESPROP2 ---
HPI - Anesthesia Eval Consult details Narrative: 58yo F for Upper Endoscopy with Balloon Dilitation, Colonoscopy ASL PMFSH Active Problems Active Problems: All Active Problems (Updated 02/13/24 @ 10:08 by Lisa Rey MD) Venous insufficiency (Acute) Left leg pain (Acute) Encounter for colorectal cancer screening (Acute) Chronic heartburn (Acute) Regurgitation of stomach contents (Acute) Dysphagia (Acute) Change in bowel habit (Acute) Pure hypercholesterolemia (Acute) Sciatica, right side (Acute) Hearing loss (Acute) Abdominal pain (Acute) Physical exam (Acute) Mild recurrent major depression (Acute) Encounter for physical examination (Acute) Chronic cough (Acute) Blind right eye (Acute) Developmental delay, mild (Acute) Deaf mutism, congenital (Acute) Allergic rhinitis (Acute) Hypovitaminosis D (Acute) Insomnia (Acute) Past Medical History Medical History GERD (gastroesophageal reflux disease) Mild recurrent major depression Encounter for physical examination Chronic cough Blind right eye Developmental delay, mild Deaf mutism, congenital Allergic rhinitis Hypovitaminosis D Insomnia Depression Family History Family History Father Stroke Mother Diabetes Family/Other FH: mental illness Surgical History Surgical History Hx of colonoscopy Social History Social History Housing: Other Alcohol intake: never Patient Tobacco Use Status: Never used Tobacco e-Cigarette/Vaping Use: Never Used Second Hand Smoke Exposure: No service: No Current occupational status: disabled Cognitive needs: No Hearing needs: Yes Vision needs: Yes Meds Allergies Allergy/AdvReac Type Severity Reaction Status Date / Time No Known Allergies Allergy Verified 02/23/24 07:10 [No Known Allergies*] Home Medications Medication Instructions Recorded Confirmed Last Taken Type fluoxetine 10 mg capsule (Prozac) 10 mg PO DAILY 01/21/21 02/13/24 Unknown History mirtazapine 30 mg tablet (Remeron) 30 mg PO BEDTIME 12/01/21 02/13/24 Unknown History Assessment and Plan Assessment Anesthesia Assessment: Chart Reviewed
[2024-02-23 07:13] VITALS: BMI 22.5
[2024-02-23 07:25] VITALS: BP 107/63; PULSE 87; RESP 15; TEMP 36.7; O2SAT 95
[2024-02-23] MEDS: Lactated Ringers 1,000 ML 100 ML IVCONT (07:36)
--- NOTE | 2024-02-23 07:36 | HO.ANESPROP2 ---
[facility] Active Problems Active Problems: All Active Problems (Updated 02/23/24 @ 07:34 by Claudia Neville RN) Venous insufficiency (Acute) Left leg pain (Acute) Encounter for colorectal cancer screening (Acute) Chronic heartburn (Acute) Regurgitation of stomach contents (Acute) Dysphagia (Acute) Change in bowel habit (Acute) Pure hypercholesterolemia (Acute) Sciatica, right side (Acute) Hearing loss (Acute) Abdominal pain (Acute) Physical exam (Acute) Mild recurrent major depression (Acute) Encounter for physical examination (Acute) Chronic cough (Acute) Blind right eye (Acute) Developmental delay, mild (Acute) Deaf mutism, congenital (Acute) Allergic rhinitis (Acute) Hypovitaminosis D (Acute) Insomnia (Acute) Past Medical History Medical History GERD (gastroesophageal reflux disease) Mild recurrent major depression Encounter for physical examination Chronic cough Blind right eye Developmental delay, mild Deaf mutism, congenital Allergic rhinitis Hypovitaminosis D Insomnia Depression Functional capacity: independent ambulation Patient : No Family History Family History Father Stroke Mother Diabetes Family/Other FH: mental illness Family history of problems with anesthesia: No Surgical History Surgical History Hx of colonoscopy History of Problems with Anesthesia: No Social History Social History Housing: Other Alcohol intake: never Patient Tobacco Use Status: Never used Tobacco e-Cigarette/Vaping Use: Never Used Second Hand Smoke Exposure: No Use of substances other than those prescribed or required for medical reasons: No Are you DNR?: No Advance Directives: No Advance Directives Information Provided: Yes service: No Current occupational status: disabled Cognitive needs: No Hearing needs: Yes Vision needs: Yes Meds Allergies Allergy/AdvReac Type Severity Reaction Status Date / Time No Known Allergies Allergy Verified 02/23/24 07:10 [No Known Allergies*] Active Medications: Current Medications Lactated Ringer's (Lr) 1,000 mls @ 100 mls/hr IVCONT .Q10H [facility] Home Medications Medication Instructions Recorded Confirmed Last Taken Type fluoxetine 10 mg capsule (Prozac) 10 mg PO DAILY 02/24/21 03/18/24 Unknown History mirtazapine 30 mg tablet (Remeron) 30 mg PO BEDTIME 12/01/21 02/13/24 Unknown History Exam Height,Weight and Vital Signs: Height 5 ft Weight 52.254 kg Last Vital Signs Temp 98.1 F 02/23/24 07:25 Pulse 87 02/23/24 07:25 Resp 15 02/23/24 07:25 BP 107/63 02/23/24 07:25 Pulse Ox 95 02/23/24 07:25 O2 Del Method Room Air 02/23/24 07:25 Airway Mallampati Class: III TM Dist: >3cm Neck ROM: Full Heart: RRR Lungs: CTA Assessment and Plan Assessment Anesthesia Assessment: Anesthesia Plan Discussed Final Anesthetic Review Family History of Problems with Anesthesia: No History of Problems with Anesthesia: No NPO: Yes ASA Class: V Final Preanesthetic Review: Meds/Allgs Chart Reviewed, Consent Obtained/Reviewed and Anes Risks/Benef Reviewed Patient Risk: Low Procedure Risk: Low Anesthetic Plan Anesthetic Plan: MAC: Disposition: Standard PACU
--- NOTE | 2024-02-23 08:21 | MHC.SHP ---
Pre-Procedural Eval Section A - 24 Hr Update-Section A only Date of Service: 02/23/24 Section B - Complete if H&P > 30 days Chief Complaint: vomiting,heartburn,screening,dysphagia Details of Present Illness: Mild recurrent major depression Encounter for physical examination Chronic cough Blind right eye Developmental delay, mild Deaf mutism, congenital Allergic rhinitis Hypovitaminosis D Insomnia Depression Surgical History Hx of colonoscopy No pertinent past surgical history Allergies: Allergies Allergy/AdvReac Type Severity Reaction Status Date / Time No Known Allergies Allergy Verified 02/23/24 07:10 [No Known Allergies*] Review of Systems Review of Systems Comment: Limited ROS with the help of safety and skill based pay manager as above Exam Exam Comment: Gen appear: No acute distress HEENT: no icterus Chest: No overt resp distress Abd: soft, nontender, nondistended Psych: Stable affect, answering questions appropriately Neuro: A/Ox3 noted to move all extremities spontaneously Ext: no peripheral edema Plan Diagnosis/Plan: Unchanged I have reviewed the history and physical and performed a pertinent physical examination on my patient. No changes have occurred unless specified. Consent obtained from the sister/legal guardian with fisher trot line and safety and skill based pay manager present at bedside Time Spent With Patient Time: Total time managing care of this patient today ____ minutes.
--- NOTE | 2024-02-23 08:24 | P.OP_ITS ---
Operative Note Operative Note Date of Service: 02/23/24 Narrative: Procedure: Esophagogastroduodenoscopy and colonoscopy Endoscopist: Jen Zavala MD Indication: GERD, vomiting, dysphagia, screening Anesthesia Provider: Dr Denise Chavez Anesthesia Type: MAC Instrument: Olympus GIF-H190 and PCF-H190L ?? EGD Procedure:?? The procedure, indications, preparation and potential complications were reviewed with the patient, who indicated understanding and gave written informed consent to proceed. A physical exam was performed. The endoscope was introduced through the mouth, and advanced to the duodenum. The mucosa was carefully examined on slow withdrawal of the endoscope. The patient tolerated the procedure well. There were no immediate complications.? ? EGD Findings:? * Esophagus:? Normal mucosa noted in the entire esophagus. The Z line was at 32 cm. There was a non-obstructing Schatzki's ring. There was a large hiatal hernia with the diaphragmatic pinch at 37 cm. Middle and lower esophagus biopsies were taken to rule out eosinophilic esophagitis. * Stomach:? Scant erosions and heme noted in the body and antrum. Small numerous polyps in the fundus. Few of these were biopsied with forceps. Retroflexion in the cardia showed healed grade 3 hiatal hernia with Jamshid erosions. Random cold forceps biopsies were taken to rule out H pylori. * Duodenum:? Normal to the extent examined. Cold forceps biopsies were taken of the duodenal bulb and 2nd portion of duodenal to rule out celiac sprue. Additional intervention: A soft tipped Savary wire was introduced through the biopsy channel of the gastroscope and advanced to the antrum. The gastroscope was then backed out. A Savary Kyle bougie was advanced over the guidewire and the esophagus was dilated to 18 mm. On relook, there was no tear or heme noted. Colonoscopy Procedure: The patient was then turned for the colonoscopy. A digital rectal exam was performed which was abnormal due to finding of ext hemorrhoids. A distal attachment cap was affixed to the tip of the colonoscope which was then inserted through the anus and advanced through the colon to the cecum at 80 cm and terminal ileum. Mucosa was carefully examined under high definition white light as the instrument was slowly withdrawn in a retrograde panoramic fashion. Retroflexion was performed in rectum. The procedure was not difficult. There were no immediate obvious complications. The quality of the prep was BBPS: 2+2+3 = adequate Withdrawal time 12 minutes. Limitations: No limitations. Findings: Mucosa: Normal to cecum and terminal ileum. Protruding lesions: * 1 sessile polyp of size 5 mm in descending. Cold forceps polypectomy was performed. The polyp was completely removed and retrieved. * Medium internal hemorrhoids without stigmata of recent bleeding. Excavated lesions: * Scattered diverticulosis of the left colon Impression: * Non-obstructing Schatzki's ring * Hiatal hernia * Jamshid erosions * Gastritis * Duodenitis * Normal colon and terminal ileum mucosa * Total of 1 polyp removed * Internal and external hemorrhoids Recommendations * Follow biopsy results. Our office will call or send a letter with results within 7-10 days. * Stop Pepcid, start omeprazole 20 mg once daily * Avoid NSAIDs * Repeat colonoscopy in 5-7 years depending on the results of the polyp.
[2024-02-23 09:16] VITALS: BP 100/52; PULSE 79; RESP 16; TEMP 36.3; O2SAT 99
[2024-02-23 09:31] VITALS: BP 124/66; PULSE 79; RESP 16; O2SAT 99
--- NOTE | 2024-02-23 11:59 | HO.POSTANES ---
Post Anesthesia Evaluation Post Anesthesia Evaluation Date of Service: 02/23/24 Vital Signs: Vital Signs Temp Pulse Resp BP Pulse Ox O2 Del Method 02/23/24 09:31 79 16 124/66 99 Room Air 02/23/24 09:16 97.3 F 79 16 100/52 L 99 Room Air 02/23/24 07:25 98.1 F 87 15 107/63 95 Room Air Anesthesia: Monitored Mental Status: Awake Pain Control: Satisfactory Nausea/Vomiting: None Hydration: Adequate Anesthesia-Related Issues: No Anes. Related Issues
== END 2024-02-23 09:47 | disposition home or self-care (01) ==
PROVIDERS: PCP Internal Medicine; Visit Provider Internal Medicine
PROC: (CPT 45380; principal; 2024-02-23 08:00)
PROC: 0DJD8ZZ Inspection of Lower Intestinal Tract, Via Natural or Artificial Opening Endoscopic (ICD-10-PCS; CPT 45378; 2024-02-23 08:00)
DX: Z12.11 Encounter for screening for malignant neoplasm of colon (principal); K63.5 Polyp of colon; K57.30 Diverticulosis of large intestine without perforation or abscess without bleeding; K64.4 Residual hemorrhoidal skin tags; K64.8 Other hemorrhoids; R11.10 Vomiting, unspecified; R13.10 Dysphagia, unspecified; K25.4 Chronic or unspecified gastric ulcer with hemorrhage; K21.9 Gastro-esophageal reflux disease without esophagitis; K29.50 Unspecified chronic gastritis without bleeding; K31.7 Polyp of stomach and duodenum; K29.80 Duodenitis without bleeding; K44.9 Diaphragmatic hernia without obstruction or gangrene; F33.2 Major depressive disorder, recurrent severe without psychotic features; H91.3 Deaf nonspeaking, not elsewhere classified; R62.50 Unspecified lack of expected normal physiological development in childhood; E55.9 Vitamin D deficiency, unspecified; G47.00 Insomnia, unspecified; Z79.899 Other long term (current) drug therapy
CPT/HCPCS: 45380; 43248; 43239; 88305; 88313; 88342; C1769; J2704

== ENCOUNTER → 2024-02-23 06:13 | Outpatient (BNV) | payer MEDICARE, MEDICAID, SELFPAY | PROVIDERS: PCP Internal Medicine; Visit Provider Internal Medicine | DX: K21.9 Gastro-esophageal reflux disease without esophagitis (principal); K22.2 Esophageal obstruction; K25.4 Chronic or unspecified gastric ulcer with hemorrhage; K31.7 Polyp of stomach and duodenum; Z12.11 Encounter for screening for malignant neoplasm of colon; K63.5 Polyp of colon; K57.90 Diverticulosis of intestine, part unspecified, without perforation or abscess without bleeding; K64.8 Other hemorrhoids | CPT/HCPCS: 43239; 43248; 45380 ==

== ENCOUNTER 2024-03-05 14:50 | Outpatient (AMB) | payer MEDICARE, MEDICAID, SELFPAY ==
--- NOTE | 2024-03-05 14:54 | A.OFFVIS_ITS ---
Intake Vital Signs 03/05/24 15:00 Height 5 ft Weight 119 lb 0.794 oz BMI 23.2 BP 110/61 Blood Pressure Location Lt brachial Position Sitting Pulse 85 Intake Visit Reasons: s/p egd/colon Intake Note: Matilde presents in the office as a follow up egd and colo. CC: here today for the results. Allergies No Known Allergies [No Known Allergies*] Allergy (Verified 03/05/24 15:01) HPI HPI Comments History of Present Illness Details 57 y.o F with PMH of deafness, MDD, fredy rgic rhinitis, who is here for abdominal pain x 1 year. Accompanied by her direct care . 06/28/23: Pt initially requested an ASL but later reported that she does not understand ASL as well and therefore most of hte hx was obtained by her attendant. Reports abdominal pain started almost a year ago assoc with occasional vomiting. Also had been having diarrhea which improved with lactose free milk however pt went back to regular milk. Was started on pepcid 20 BID by PCP which has not helped her sx much. Does not appear to have had CRC screening. 09/21/23: Again here with her direct care. ASL available online but again state that pt is signing in non-ASL and therefore encounter was carried out with the help of her direct care provider. Pt reports difficulty swallowing certain foods such as meat, hard vegetables. Pt reports vomiting with this but direct care mentions regurgitation has been occ witnessed. With this also reports hearburn sometimes. Does not complain of obvious abd pain today. No pain on swallowing. No unintentional weight loss. No change in bowel habits. Reviewed labs with her and her attendant that all are grossly normal. No sludge or gallstones noted on US Abd. 02/23/24: * Non-obstructing Schatzki's ring * Hiatal hernia * Jamshid erosions * Gastritis * Duodenitis * Normal colon and terminal ileum mucosa * Total of 1 polyp removed * Internal and external hemorrhoids A. Duodenum, biopsy: Duodenal mucosa within normal limits. B. Stomach, random, biopsy: Antral-type and oxyntic mucosa with mild chronic inactive inflammation; no Helicobacter organisms seen. C. Stomach, polyps, biopsy: Fundic gland polyps with background mild chronic inactive inflammation; no Helicobacter organisms seen. D. GE junction, biopsy: - Cardiac-type mucosa with moderate critical care rn sung inactive inflammation and multilayered epithelium; no fully developed intestinal metaplasia seen. - Squamous mucosa within normal limits. E. Esophagus, middle, biopsy: Active esophagitis (maximum eosinophil count 5 per high powered field with admixed neutrophils). F. Colon, ascending, polypectomy: Colonic mucosa with mild surface hyperplastic changes; multiple additional levels examined 03/05/24: Here with her direct care. EGD/colo findings reviewed. Confirmed that pt has in fact switched to omeprazole. [facility] Medical History (Updated 03/07/24 @ 14:56 by Jen Zavala MD) GERD (gastroesophageal reflux disease) Mild recurrent major depression Encounter for physical examination Chronic cough Blind right eye Developmental delay, mild Deaf mutism, congenital Allergic rhinitis Hypovitaminosis D Insomnia Depression Surgical History (Updated 03/05/24 @ 15:03 by MARSHAL De León) History of esophagogastroduodenoscopy (EGD) Hx of colonoscopy Family History Father Stroke Mother Diabetes Family/Other FH: mental illness Social History Housing: Other Alcohol intake: never Patient Tobacco Use Status: Never used Tobacco e-Cigarette/Vaping Use: Never Used Second Hand Smoke Exposure: No service: No Current occupational status: disabled Cognitive needs: No Hearing needs: Yes Vision needs: Yes Review of Systems Const Other (limited ROS as pt does not use ASL ) Physical Exam Vital Signs: Last Vital Signs Pulse 85 03/05/24 15:00 BP 110/61 03/05/24 15:00 BMI result Body Mass Index 23.2 NAD Nonicteric Abd soft, nontender, nondistended Assessment & Plan Assessment & Plan (1) Encounter for colorectal cancer screening: Code(s): Z12.11 - Encounter for screening for malignant neoplasm of colon; Z12.12 - Encounter for screening for malignant neoplasm of rectum (2) Abdominal pain: Code(s): R10.9 - Unspecified abdominal pain (3) Gastritis and duodenitis: Code(s): K29.90 - Gastroduodenitis, unspecified, without bleeding Plan REviewed with the pt and her direct care of findings of gastritis and duodenitis on EGD. H Pylori negative. Cont PPI as reviewed after procedure Avoid trigger foods Repeat colo for asymptomatic crc screening in 5-7 years due to prep Follow up 6 months Coding Level of Care Code Est Pt Level 4 (56105) Diagnoses Encounter for colorectal cancer screening Z12.11; Z12.12 Abdominal pain R10.9 Gastritis and duodenitis K29.90
[2024-03-05 15:00] VITALS: BP 110/61; PULSE 85; BMI 23.2
== END 2024-03-05 15:30 | disposition home or self-care (01) ==
PROVIDERS: PCP Internal Medicine; Visit Provider Internal Medicine
DX: K29.90 Gastroduodenitis, unspecified, without bleeding (principal); K63.5 Polyp of colon
CPT/HCPCS: 99214

== ENCOUNTER → 2024-03-05 14:50 | Outpatient (BNVA) | payer MEDICARE, MEDICAID, SELFPAY | PROVIDERS: PCP Internal Medicine; Visit Provider Internal Medicine | DX: Z12.11 Encounter for screening for malignant neoplasm of colon (principal); Z12.12 Encounter for screening for malignant neoplasm of rectum; K29.90 Gastroduodenitis, unspecified, without bleeding; R10.9 Unspecified abdominal pain | CPT/HCPCS: 99212 ==

== ENCOUNTER 2024-04-20 08:40 | Outpatient (AMB) | payer MEDICARE, MEDICAID, SELFPAY ==
[2024-04-20 08:46] VITALS: BP 118/70; PULSE 74; TEMP 36.6; O2SAT 98
--- NOTE | 2024-04-20 08:46 | AM.OFFWIN_ITS ---
Intake Vital Signs 04/20/24 08:46 Height 5 ft BP 118/70 Blood Pressure Location Rt brachial Position Sitting Pulse 74 Pulse Source Pulse Oximeter Temp 97.9 F Temp Source Oral Pulse Oximetry (%) 98 Intake Visit Reasons: EP Rt shoulder pain/cyst Intake Note: pt is here for right shoulder pain Patient Tobacco Use Status: Never used Tobacco Allergies No Known Allergies [No Known Allergies*] Allergy (Verified 04/20/24 08:48) Do you need a note to return to daycare/school/sports/work: No HPI HPI Comments History of Present Illness Details 58 y/o female patient who presents to [facility] in clinic with c/o a small tender cyst filled with yellow discharge. Pt is not verbal - she is deaf. Accompanied by animal care attendant who assists with history taking. [facility] Medical History (Updated 03/07/24 @ 14:56 by Jen Zavala MD) GERD (gastroesophageal reflux disease) Mild recurrent major depression Encounter for physical examination Chronic cough Blind right eye Developmental delay, mild Deaf mutism, congenital Allergic rhinitis Hypovitaminosis D Insomnia Depression Surgical History (Updated 03/05/24 @ 15:03 by MARSHAL De León) History of esophagogastroduodenoscopy (EGD) Hx of colonoscopy Family History Father Stroke Mother Diabetes Family/Other FH: mental illness Social History Housing: Other Alcohol intake: never Patient Tobacco Use Status: Never used Tobacco e-Cigarette/Vaping Use: Never Used Second Hand Smoke Exposure: No service: No Current occupational status: disabled Cognitive needs: No Hearing needs: Yes Vision needs: Yes Review of Systems Const All systems reviewed & are unremarkable except as noted in HPI and below Physical Exam Vital Signs: Last Vital Signs Temp 97.9 F 04/20/24 08:46 Pulse 74 04/20/24 08:46 BP 118/70 04/20/24 08:46 Pulse Ox 98 04/20/24 08:46 Const General: comfortable and no acute distress Orientation/consciousness: patient oriented x3 Neck Neck: Yes full ROM, Yes no lymphadenopathy and Yes supple Skin Lesions: lesion noted (right upper shoulder, back of neck. Small cyst filled with pus. ) Neuro General: patient oriented x3 Extrem Right upper extremity: shoulder/upper arm (A Small cyst filled with yellow fluid. ) Details: tenderness Location: of the clavicle; no swelling Assessment & Plan Assessment & Plan (1) Abscess of skin and subcutaneous tissue: Code(s): L02.91 - Cutaneous abscess, unspecified Qualifiers: Site of cutaneous abscess: extremity Site of cutaneous abscess of extremity: upper extremity Laterality: right Qualified Code(s): L02.413 - Cutaneous abscess of right upper limb Plan: - Warm compress to facilitate drainage - Topical Abx - Acetaminophen for pain relief Coding Level of Care Code Est Pt Level 3 (83511) Diagnoses Cutaneous abscess of right upper extremity L02.413 Site of cutaneous abscess: extremity Site of cutaneous abscess of extremity: upper extremity Laterality: right Time Spent (min) 15
== END 2024-04-20 09:25 | disposition home or self-care (01) ==
PROVIDERS: PCP Internal Medicine; Visit Provider Nurse Practitioner Family
DX: L02.413 Cutaneous abscess of right upper limb (principal)
CPT/HCPCS: 99213

== ENCOUNTER 2024-06-09 08:34 | Outpatient (REF) | payer MEDICARE, MEDICAID, SELFPAY ==
[2024-06-09 10:34] LABS: Alanine Aminotransferase 28 U/L (0-31); Albumin Level 4.4 g/dL (3.5-5.0); Alkaline Phosphatase 80 U/L (39-117); Anion Gap 10 (12-20); Aspartate Amino Transferase 26 U/L (5-31); Bilirubin Total 0.4 mg/dL (0.0-1.0); Blood Urea Nitrogen 12 mg/dL (9-16); Calcium 10.2 mg/dL (8.4-10.2); Carbon Dioxide 31 mmol/L (22-29); Chloride 104 mmol/L (96-108); Cholesterol 141 mg/dL (<200); Estimated Glomerular Filt Rate > 60; Glucose Fasting 90 mg/dL (60-99); Glucose Random 89 mg/dL (60-115); HDL Cholesterol 47 mg/dL (>40); LDL Cholesterol Calculated 74 mg/dL (<100); Potassium 4.3 mmol/L (3.3-5.1); Sodium 141 mmol/L (135-145); Triglycerides 101 mg/dL (<150)
[2024-06-09 10:49] LABS: Vitamin D 25-OH Total 76.9 ng/mL (>30)
== END 2024-06-09 08:35 | disposition home or self-care (01) ==
LOC: HO.LAB 08:34
PROVIDERS: PCP Internal Medicine; Visit Provider Internal Medicine
DX: Z00.00 Encounter for general adult medical examination without abnormal findings (principal); E78.5 Hyperlipidemia, unspecified; R10.9 Unspecified abdominal pain; E55.9 Vitamin D deficiency, unspecified
CPT/HCPCS: 36415; 80053; 80061; 82306

== ENCOUNTER 2024-07-26 13:24 | Outpatient (REF) | payer MEDICARE, MEDICAID, SELFPAY ==
--- NOTE | 2024-07-26 15:17 | MHC.AU.MED ---
Medical Clearance for Hearing Instrumentation Date: 07/26/24 Patient Name: Matilde Jung Date of : 1965 Primary Care Provider: Lisa Rey MD We have seen your patient on 07/26/24 and have determined that they are a candidate for amplification (See accompanying report). Specifically, they would benefit from: Hearing aid use in both ears There is a statute that addresses Medical Evaluation Requirements prior to fitting a patient with a hearing aid. According to [place] statute 265 CMR:6.03(1), (a) General. Except as provided in 265 CMR 6.03(1)(b), a renovation plant supervisor shall not sell a hearing aid unless the prospective user has presented to the renovation plant supervisor a written statement signed by a licensed physician that states that the patient's hearing loss has been medically evaluated and the patient may be considered a candidate for a hearing aid. The medical evaluation must have taken place within the preceding six months. Please note: Due to the [place] Statute referenced above, we cannot accept a signature other than that of a licensed physician. DIE HARDENER and PA signatures cannot be accepted. I am in agreement with the above recommendation. There is no medical contraindication for hearing instrumentation. Physician Signature Date Physician Name (Printed)
--- NOTE | 2024-07-27 08:10 | MHC.AU.HA3 ---
Hearing Instrument Follow-Up- Binaural Date of Visit: 07/26/24 Right Ear: Make, Model, Color, Serial Number: Lashon Farrell B50-UP SN: [id number] Color: [place] Seed Cleaner Operator Repair Warranty: 04/17/2022 Seed Cleaner Operator Loss and Damage Warranty: 04/17/2022 Battery Size: 675 Earmold/Dome/CShell/SlimTip:Microsonic Shell Dispensed By: [facility] Date of Fittin03/23/2019 Left Ear: Make, Model, Color, Serial Number: Lashon Farrell B50-UP SN: [id number] Color: [place] Seed Cleaner Operator Repair Warranty: 04/17/2022 Seed Cleaner Operator Loss and Damage Warranty: 04/17/2022 Battery Size: 675 Earmold/Dome/CShell/SlimTip: Microsonic Shell Dispensed By: [facility] Date of Fittin03/23/2019 Follow-Up Summary: Accompanied by intermediate staffBre. Updated hearing test (see audio). Right hearing aid has broken battery door, tubing out of mold, moisture in tone hook. Left hearing aid missing tone hook and tubing. Cleaned both hearing aids and ear molds. Replaced tone hooks and tubing. Did not have extra battery door in stock for right hearing aid. Still able to use it while starting the process for new hearing aids (see Consult note). Vacuumed microphones, ran through dehumidifier. Listening check demonstrated hearing aids amplifying clearly. Recommendations: Hearing instrument follow-up or maintenance as needed. Please contact our clinic with any questions or concerns. Diagnosis Code(s): Primary Diagnosis: H90.3 Bilateral Sensorineural Hearing Loss Signature: Provider: Jena Webb, [facility]
--- NOTE | 2024-07-27 08:20 | MHC.AU.HA1 ---
Hearing Aid Evaluation Date of Visit: 07/26/24 Historical Information: Description of Hearing: Right Ear: Severe to profound sensorineural hearing loss; Left Ear: Profound sensorineural hearing loss Current personal amplification information: Phonak Jami B50-UPs fit in February 2019 Summary: Accompanied by jail staff, Bre. Ready to pursue new hearing aids due to age of current pair. Relies on hearing aids for environmental awareness. Impressions taken, bilaterally, without incident (in hold drawer), waiting for medical clearance. Hearing Aid Prescription: Based on the individual?s shared listening needs, communication environments, dexterity, desire for connectivity, and personal preferences, the following prescription for amplification has been made: Right ear: Make, Model, Color: Phonak Jami L70-UP Color: Silver [place] Battery Size: 675 Type of Earmold/Dome/CShell/SlimTip: Microsonic M45 full shell Left ear: Left ear prescription to be same as Right Hearing Aid above: Make, Model, Color: Phonak Jami L70-UP Color: Silver [place] Battery Size: 675 Type of Earmold/Dome/CShell/SlimTip: Microsonic M45 full shell Plan of Care: Patient wishes to purchase hearing aids as prescribed Action Taken/Action Needed: Medical Clearance to be requested from PCP/ENT. Hearing Instrument Fitting to be scheduled when materials arrive Primary Diagnosis: H90.3 Bilateral Sensorineural Hearing Loss Signature: Provider: Jena Webb, CCC-A
== END 2024-07-26 13:25 | disposition home or self-care (01) ==
LOC: HO.SH 13:24
PROVIDERS: Visit Provider Internal Medicine
DX: Z01.118 Encounter for examination of ears and hearing with other abnormal findings (principal); Z46.1 Encounter for fitting and adjustment of hearing aid; H90.3 Sensorineural hearing loss, bilateral
CPT/HCPCS: 92552; 92555; 92591; 92593; 99499; V5275

== ENCOUNTER 2024-08-14 13:20 | Outpatient (AMB) | payer MEDICARE, MEDICAID, SELFPAY ==
[2024-08-14 13:20] VITALS: BMI 23.2
--- NOTE | 2024-08-14 13:20 | A.OFFVIS_ITS ---
Vital Signs 08/14/24 13:20 Height 5 ft Weight 119 lb BMI 23.2 Intake Visit Reasons: COMMUNICATION MANAGER Intake Note: COMMUNICATION MANAGER/ VV referral for bilateral VV. Left LE pain and throbbing in left LE. Forest Pathology Teacher Required: Yes Forest Pathology Teacher Language: Bobbin Handler Name: Gifty [id number] Information Interpreted: clinical only Recordak Operator: Recordak Operator Present Accompanied by: PARTS BACK COUNTER MAN Allergies No Known Allergies [No Known Allergies*] Allergy (Verified 08/14/24 13:26) HPI HPI COMMUNICATION MANAGER : Details: Very complex 58-year-old female presents for evaluation regarding lower extremity pain. Was difficult to ascertain any sort of history. We did have a display and banner designer on our iPad in addition we did have a healthy tendon was also a very poor historian about the patient's overall condition. The only information on review of systems that I was able to ascertain is that she had left knee pain other than that I was unable to obtain any additional insight into the patient's overall condition. [facility] Medical History GERD (gastroesophageal reflux disease) Mild recurrent major depression Encounter for physical examination Chronic cough Blind right eye Developmental delay, mild Deaf mutism, congenital Allergic rhinitis Hypovitaminosis D Insomnia Depression Surgical History History of esophagogastroduodenoscopy (EGD) Hx of colonoscopy Family History Father Stroke Mother Diabetes Family/Other FH: mental illness Social History Housing: Other Alcohol intake: never Patient Tobacco Use Status: Never used Tobacco e-Cigarette/Vaping Use: Never Used Second Hand Smoke Exposure: No service: No Current occupational status: disabled Cognitive needs: No Hearing needs: Yes Vision needs: Yes Review of Systems Const Details: Speaks sign language but was only able to give information regarding pain Physical Exam Vital Signs: BMI result Body Mass Index 23.2 Const General: cooperative, healthy appearing and no acute distress Orientation/consciousness: oriented to person, oriented to place and oriented to time HEENT Head: Yes normal to inspection Neck Carotids: no bruits Chest Chest palpation & inspection: normal inspection of the chest Resp Effort & Inspection: normal respiratory effort and able to speak in complete sentences Auscultation: clear to auscultation bilaterally Cardio Other: Palpable dorsalis pedis pulses bilateral Rate: regular rate Heart sounds: S1 normal heart sound present and S2 normal heart sound present GI Inspection: Yes normal to inspection Skin General skin exam: no rashes or lesions noted Wounds: no wounds Neuro General: oriented to person, oriented to place, oriented to time and CN's II-XI intact bilaterally Extrem Other: Venous: +1 edema, no significant varicosities some mild spider telangiectasias Tenderness overlying left patella General: Yes normal to inspection, Yes full ROM and Yes no clubbing, cyanosis or edema Psych Appearance: grossly normal and well kempt Speech and movement: Normal speech and movement present Affect: normal affect Assessment & Plan Assessment & Plan (1) Left leg pain: Code(s): M79.605 - Pain in left leg Category: Medical Plan: In short patient has left lower extremity pain. It appears that it is more so in the knee overlying the patella. From a vascular standpoint she has palpable dorsalis pedis pulses bilaterally and she does not have this signs or symptoms of venous disease. I relayed this to the healthcare attendant. I do recommend should pain persist evaluation by Orthopedics. She will follow up with us on an as-needed basis. Thank you for allowing us to assist in her care Coding Level of Care Code New Pt Level 4 (06220) Diagnoses Left leg pain M79.605
== END 2024-08-14 13:50 | disposition home or self-care (01) ==
PROVIDERS: PCP Internal Medicine; Visit Provider Surgery Vascular Surgery
DX: M79.605 Pain in left leg (principal)
CPT/HCPCS: 99204

== ENCOUNTER → 2024-08-14 13:20 | Outpatient (BNVA) | payer MEDICARE, MEDICAID, SELFPAY | PROVIDERS: PCP Internal Medicine; Visit Provider Surgery Vascular Surgery | DX: M79.605 Pain in left leg (principal); M25.562 Pain in left knee | CPT/HCPCS: 99202 ==

== ENCOUNTER 2024-10-31 12:55 | Outpatient (REF) | payer MEDICARE, MEDICAID, SELFPAY ==
--- NOTE | 2024-10-31 15:00 | MHC.AU.HA2 ---
Hearing Instrument Fitting- Adult- Binaural Date of Visit: 10/31/24 Hearing Instruments Dispensed: Right Ear: Make, Model, Color, Serial Number: Lashon Farrell L70-UP SN: [id number] Color: Silver [employer] Supervisor Repair Warranty: 09/07/2027 Farm Supervisor Loss and Damage Warranty: 09/07/2027 [facility] Service Plan: 10/31/2025 Battery Size: 675 Earmold/Dome/CShell/SlimTip: Microsonic M45 full shell Left Ear: Make, Model, Color, Serial Number: Lashon Farrell L70-UP SN: [id number] Color: Silver [employer] Supervisor Repair Warranty: 09/07/2027 Farm Supervisor Loss and Damage Warranty: 09/07/2027 [facility] Service Plan: 10/31/2025 Battery Size: 675 Earmold/Dome/CShell/SlimTip: Microsonic M45 full shell Summary of Fitting: Accompanied by senior living staff, Krupa. kerrick kleaner operator not requested, as per Peter, Please note that this individual also has developmental delay and lives in a senior living and may need her proxy/guardian for effective communication. In the past an kerrick kleaner operator could not use ASL for effective communication and had to act out communication. A senior living employee relayed the message for care. Used gestures/acting out for communication. Ran feedback broiler manager and real ear measures. Underfit due to limits of feedback curve but comfortable per Matilde. Decreased right ear slightly per Matilde' request. Reviewed care and use including changing battery and VC use. As a long time [employer] user, Matilde was otherwise familiar with general maintenance, insertion/removal, etc. Has old HAs and EMs to keep as back up. Did not feel a follow up is necessary at this time. Matilde will call if issues with fit of EMs, comfort, or sound quality arise. Recommendations: Patient does not feel follow-up is necessary at this time. Please call our clinic with any questions or concerns. Diagnosis Code(s): Primary Diagnosis: H90.3 Bilateral Sensorineural Hearing Loss Signature: Provider: Jena Webb, [facility]
== END 2024-10-31 12:56 | disposition home or self-care (01) ==
LOC: HO.HAP 12:55
PROVIDERS: Visit Provider Internal Medicine
DX: Z46.1 Encounter for fitting and adjustment of hearing aid (principal); H90.3 Sensorineural hearing loss, bilateral
CPT/HCPCS: V5011; V5020; V5160; V5261; V5264; V5266

== ENCOUNTER 2024-10-31 13:50 | Outpatient (AMB) | payer MEDICARE, MEDICAID, SELFPAY ==
--- NOTE | 2024-10-31 14:05 | A.OFFVIS_ITS ---
Vital Signs 10/31/24 14:06 Height 5 ft Weight 116 lb 13.52 oz BMI 22.8 Blood Pressure Location Lt brachial Position Sitting Intake Visit Reasons: 6 month f/u Intake Note: Matilde presents in the office as a 6 month follow up. CC: Pains really severe in the epigastric region. She states that she is not having any constipation or diarrhea. She states that right now she is okay but at night she gets the pains. She states that when she drinks coffee she has to run to the bathroom with diarrhea but other than that she states she does not have that issue. Python Architect Required: Yes Python Architect Name: [id number] Allergies No Known Allergies [No Known Allergies*] Allergy (Verified 10/31/24 14:06) HPI Comments Details: 57 y.o F with PMH of deafness, MDD, allergic rhinitis, who is here for abdominal pain x 1 year. Accompanied by her direct care . 06/28/23: Pt initially requested an ASL but later reported that she does not understand ASL as well and therefore most of hte hx was obtained by her attendant. Reports abdominal pain started almost a year ago assoc with occasional vomiting. Also had been having diarrhea which improved with lactose free milk however pt went back to regular milk. Was started on pepcid 20 BID by PCP which has not helped her sx much. Does not appear to have had CRC screening. 09/21/23: Again here with her direct care. ASL available online but again state that pt is signing in non-ASL and therefore encounter was carried out with the help of her direct care provider. Pt reports difficulty swallowing certain foods such as meat, hard vegetables. Pt reports vomiting with this but direct care mentions regurgitation has been occ witnessed. With this also reports hearburn sometimes. Does not complain of o bvious abd pain today. No pain on swallowing. No unintentional weight loss. No change in bowel habits. Reviewed labs with her and her attendant that all are grossly normal. No sludge or gallstones noted on US Abd. 02/23/24: * Non-obstructing Schatzki's ring * Hiatal hernia * Jamshid erosions * Gastritis * Duodenitis * Normal colon and terminal ileum mucosa * Total of 1 polyp removed * Internal and external hemorrhoids A. Duodenum, biopsy: Duodenal mucosa within normal limits. B. Stomach, random, biopsy: Antral-type and oxyntic mucosa with mild chronic inactive inflammation; no Helicobacter organisms seen. C. Stomach, polyps, biopsy: Fundic gland polyps with background mild chronic inactive inflammation; no Helicobacter organisms seen. D. GE junction, biopsy: - Cardiac-type mucosa with moderate chronic inactive inflammation and multilayered epithelium; no fully developed intestinal metaplasia seen. - Squamous mucosa within normal limits. E. Esophagus, middle, biopsy: Active esophagitis (maximum eosinophil count 5 per high powered field with admixed neutrophils). F. Colon, ascending, polypectomy: Colonic mucosa with mild surface hyperplastic changes; multiple additional levels examined 03/05/24: Here with her direct care. EGD/colo findings reviewed. Confirmed that pt has in fact switched to omeprazole. 11/01/24: Here for follow up. Accompanied by Faustina. Reports resolution of abd pain, N,V. Good control of sx with omeprazole 20 mg oncve daily. [facility] Medical History GERD (gastroesophageal reflux disease) Mild recurrent major depression Encounter for physical examination Chronic cough Blind right eye Developmental delay, mild Deaf mutism, congenital Allergic rhinitis Hypovitaminosis D Insomnia Depression Surgical History History of esophagogastroduodenoscopy (EGD) Hx of colonoscopy Family History Father Stroke Mother Diabetes Family/Other FH: mental illness Social History Housing: Other Alcohol intake: never Patient Tobacco Use Status: Never used Tobacco e-Cigarette/Vaping Use: Never Used Second Hand Smoke Exposure: No service: No Current occupational status: disabled Cognitive needs: No Hearing needs: Yes Vision needs: Yes Review of Systems Const All systems reviewed & are unremarkable except as noted in HPI and below Physical Exam Vital Signs: BMI result Body Mass Index 22.8 No apparent distress Nonicteric Abdomen soft, nondistended signs but not in ASL, Faustina helps with interpretation Assessment & Plan Assessment & Plan (1) Abdominal pain: Code(s): R10.9 - Unspecified abdominal pain Category: Medical (2) Gastritis and duodenitis: Code(s): K29.90 - Gastroduodenitis, unspecified, without bleeding Category: Medical (3) Encounter for colorectal cancer screening: Code(s): Z12.11 - Encounter for screening for malignant neoplasm of colon; Z12.12 - Encounter for screening for malignant neoplasm of rectum Category: Medical Plan Resolution of upper GI sx with anti secretory therapy. Plan: -omeprazole 20 mg refilled -further refills can be through PCP office -reminded that will be due for repeat colonoscopy for colorectal cancer screening in 5-7 years -follow-up in GI office as needed in the meantime Medications: Refilled omeprazole 20 mg PO DAILY 90 caps 2RF Coding Level of Care Code Est Pt Level 3 (84707) Diagnoses Abdominal pain R10.9 Gastritis and duodenitis K29.90 Encounter for colorectal cancer screening Z12.11; Z12.12
[2024-10-31 14:06] VITALS: BMI 22.8
== END 2024-10-31 15:13 | disposition home or self-care (01) ==
PROVIDERS: PCP Internal Medicine; Visit Provider Internal Medicine
DX: R10.9 Unspecified abdominal pain (principal); K29.90 Gastroduodenitis, unspecified, without bleeding; Z12.11 Encounter for screening for malignant neoplasm of colon; Z12.12 Encounter for screening for malignant neoplasm of rectum
CPT/HCPCS: 99213

== ENCOUNTER → 2024-10-31 13:50 | Outpatient (BNVA) | payer MEDICARE, MEDICAID, SELFPAY | PROVIDERS: PCP Internal Medicine; Visit Provider Internal Medicine | DX: Z12.11 Encounter for screening for malignant neoplasm of colon (principal); Z12.12 Encounter for screening for malignant neoplasm of rectum; K29.90 Gastroduodenitis, unspecified, without bleeding; R10.9 Unspecified abdominal pain | CPT/HCPCS: 99212 ==

== ENCOUNTER → 2024-11-16 08:00 | Outpatient (BNV) | payer MEDICARE, MEDICAID, SELFPAY | PROVIDERS: PCP Internal Medicine; Visit Provider Internal Medicine | DX: Z12.31 Encounter for screening mammogram for malignant neoplasm of breast (principal) | CPT/HCPCS: 77063; 77067 ==

== ENCOUNTER 2024-11-16 08:10 | Outpatient (REF) | payer MEDICARE, MEDICAID, SELFPAY | END 2024-11-16 08:11 | disposition home or self-care (01) | LOC: HO.MAMMO 08:10 | PROVIDERS: PCP Internal Medicine; Visit Provider Internal Medicine | DX: Z12.31 Encounter for screening mammogram for malignant neoplasm of breast (principal) | CPT/HCPCS: 77063; 77067 ==

== ENCOUNTER 2024-11-19 08:21 | Outpatient (AMB) | payer MEDICARE, MEDICAID, SELFPAY ==
[2024-11-19 08:31] VITALS: BP 126/80; BMI 23.0
--- NOTE | 2024-11-19 08:31 | MHC.PC.OV ---
Vital Signs 11/19/24 08:31 Height 5 ft Weight 118 lb BMI 23.0 BP 126/80 Blood Pressure Location Lt brachial Position Sitting Intake Visit Reasons: left knee pain/discuss referral Intake Note: Patient here for left knee pain, requesting ortho referral, c/o cough Engineering Analyst Required: No Accompanied by: Staff Allergies No Known Allergies [No Known Allergies*] Allergy (Verified 11/19/24 08:43) Medication List - Last Reconciled 11/19/24 by Lisa Rey MD acetaminophen ER 650 mg PO Q4H PRN 30 days atorvastatin 20 mg PO BEDTIME 90 days cholecalciferol (vitamin D3) 50 mcg PO DAILY dextran 70-hypromellose 0.1-0.3 % drps ophthalmic (eye) fluoxetine (Prozac) 10 mg PO DAILY fluticasone propionate 50 mcg/actuation 2 sprays intranasal DAILY 30 days loratadine-pseudoephedrine 10-240 mg ER (Claritin-D 24 Hour) 1 tab PO DAILY 30 days mirtazapine (Remeron) 30 mg PO BEDTIME olopatadine 0.2% (Pataday Once Daily Relief) 1 drp ophthalmic (eye) BEDTIME 7 days omeprazole 20 mg PO DAILY zolpidem 5 mg PO BEDTIME Tobacco use date assessed: 02/13/24 Dental Screening Dental Screen Date: 02/13/24 HPI HPI Comments History of Present Illness Details The patient is a 59-year-old female presenting with a knee problem suspected to be a Guillory's cyst. The patient has a history of varicose veins and initially attributed the knee pain to this condition. The knee pain has persisted for over six months, prompting further evaluation. The previous evaluation by a physician suggested a referral to orthopedics due to the suspicion of a Guillory's cyst. There have been no reports of thrombosis associated with the knee swelling. The patient reports a long-term history of using medications such as atorvastatin for hypercholesterolemia and omeprazole for dyspepsia. Current management includes vitamin supplements and allergy medications, but there are concerns regarding the knee pain, which needs an orthopedic assessment. She also has mild major depression, anxiety and insomnia that is follow by Psychiatry and has been well controlled with medications. She is deaf mute with mild developmental delay and [facility] a [facility] and is accompanied today by 2 staff members which are the main historian. PFSH Medical History (Updated 11/19/24 @ 10:13 by Lisa Rey MD) GERD (gastroesophageal reflux disease) Mild recurrent major depression Encounter for physical examination Chronic cough Blind right eye Developmental delay, mild Deaf mutism, congenital Allergic rhinitis Hypovitaminosis D Insomnia Depression Surgical History History of esophagogastroduodenoscopy (EGD) Hx of colonoscopy Family History Father Stroke Mother Diabetes Family/Other FH: mental illness Social History Housing: Other Alcohol intake: never Patient Tobacco Use Status: Never used Tobacco e-Cigarette/Vaping Use: Never Used Second Hand Smoke Exposure: No service: No Current occupational status: disabled Cognitive needs: No Hearing needs: Yes Vision needs: Yes Questionnaire Thrive Questionnaire Date Thrive assessed: 02/13/24 THAI-7 AMB Questionnaire THAI-7 Date THAI - 7 assessed: 02/13/24 Source: Developed by Drs. Tim Lester, Hafsa Parsons, Navjot Calvo and colleagues, with an educational yasmine from [employer]. Review of Systems Const All systems reviewed & are unremarkable except as noted in HPI and below Card Denies chest pain at rest, Denies chest pain with activity, Denies edema, Denies irregular heart rhythm, Denies claudication, Denies dyspnea, Denies dyspnea on exertion, Denies orthopnea, Denies paroxysmal nocturnal dyspnea and Denies slow heart rate Resp Denies cough, Denies dyspnea and Denies dyspnea on exertion GI Denies abdominal pain, Denies change in bowel habits, Denies excessive flatus, Denies nausea and Denies vomiting Denies urinary incontinence, Denies urinary hesitancy and Denies urinary urgency Musc Denies atrophy, Denies deformity, Reports arthralgias and Denies limited range of motion Physical exam (Primary Care) Vital Signs: Last Vital Signs BP 126/80 11/19/24 08:31 BMI result Body Mass Index 23.0 Tobacco/Smoking Status: Tobacco use Status Tobacco use date assessed 02/13/24 11/19/24 08:34 Patient Tobacco Use Status Never used Tobacco 11/19/24 08:34 e-Cigarette/Vaping Use Never Used 11/19/24 08:34 Thrive Assessment: Date of Thrive Assessment Date Thrive assessed 02/13/24 11/19/24 08:34 Resp Effort & Inspection: normal respiratory effort Auscultation: clear to auscultation bilaterally Cardio Jugular venous distension: no JVD Rate: regular rate Rhythm: regular rhythm Heart sounds: S1 normal heart sound present and S2 normal heart sound present Extrem General: Yes full ROM Office Procedures Flu Questionnaire Does the patient have a severe egg allergy?: No Immunizations Fluarix Triv [id number] (PF) 45 mcg (15 mcg x 3)/0.5 mL IM syringe Performing Provider: Lisa Rey MD [facility] [place] Documented (not given) by: MARSHAL Colunga on 11/19/24 09:02 Reason Not Given: Not Given Coding Level of Care Code Est Pt Level 4 (50932) Complex EM visit Add On G2211 Diagnoses Chronic pain of left knee M25.562; G89.29 Chronicity: chronic Pure hypercholesterolemia E78.00 Mild recurrent major depression F33.0 Primary insomnia F51.01 Insomnia type: primary THAI (generalized anxiety disorder) F41.1 Time Spent (min) 22 Assessment & Plan Assessment & Plan (1) Left knee pain: Code(s): M25.562 - Pain in left knee Category: Medical Qualifiers: Chronicity: chronic Qualified Code(s): M25.562 - Pain in left knee; G89.29 - Other chronic pain (2) Pure hypercholesterolemia: Code(s): E78.00 - Pure hypercholesterolemia, unspecified Category: Medical (3) Mild recurrent major depression: Code(s): F33.0 - Major depressive disorder, recurrent, mild Category: Medical (4) Insomnia: Code(s): G47.00 - Insomnia, unspecified Category: Medical Qualifiers: Insomnia type: primary Qualified Code(s): F51.01 - Primary insomnia (5) THAI (generalized anxiety disorder): Code(s): F41.1 - Generalized anxiety disorder Category: Medical Plan - Provide an orthopedic referral for evaluation of the Guillory's cyst. - Prescribe imaging of the knee to assess the condition further. - Continue monitoring current medications and adjust as necessary based on lab results. - Schedule fasting laboratories before the next scheduled appointment. Patient was informed and verbally consented to the use of an ambient scribe for clinic note documentation during this visit. I discussed with the patient the likely presence of a Guillory's cyst and the rationale for referring her to an end user support specialist for further evaluation. We reviewed the option of obtaining imaging to confirm the condition. I emphasized the importance of following the medication regimen for hypercholesterolemia and allergies, and the role of these medications in her ongoing health maintenance. The implications of the knee problem were explained, and the patient was advised to schedule and complete fasting laboratory tests ahead of her next check-up. Next steps regarding potential surgical or procedural interventions for the knee will be discussed following the orthopedic consultation and imaging results. Orders: Orders XR knee LT 2V Today M25.562 - Pain in left knee Lipid Panel 3 Months E78.5 - Hyperlipidemia, unspecified Vitamin D 25-OH Total 3 Months E55.9 - Vitamin D deficiency, unspecified Influenza [id number] Immunization Today Z23 - Encounter for immunization Comprehensive [place]. Panel Fast 3 Months M25.562 - Pain in left knee Referrals Orthopedics Referral M25.562 - Pain in left knee Patient Instructions: - Follow up with the end user support specialist as advised. - Complete scheduled fasting laboratory tests before the next visit. - Continue current medications as prescribed. - Seek medical attention if knee pain worsens or new symptoms arise.
== END 2024-11-19 08:57 | disposition home or self-care (01) ==
PROVIDERS: PCP Internal Medicine; Visit Provider Internal Medicine
DX: M25.562 Pain in left knee (principal); G89.29 Other chronic pain; E78.00 Pure hypercholesterolemia, unspecified; F33.0 Major depressive disorder, recurrent, mild; F51.01 Primary insomnia; F41.1 Generalized anxiety disorder; Z23 Encounter for immunization

== ENCOUNTER → 2024-11-19 08:21 | Outpatient (BNVA) | payer MEDICARE, MEDICAID, SELFPAY | PROVIDERS: PCP Internal Medicine; Visit Provider Internal Medicine | DX: M25.562 Pain in left knee (principal); G89.29 Other chronic pain; E78.00 Pure hypercholesterolemia, unspecified; F51.01 Primary insomnia; F41.1 Generalized anxiety disorder | CPT/HCPCS: 90471; 99212 ==

== ENCOUNTER 2024-12-12 07:36 | Outpatient (REF) | payer MEDICARE, MEDICAID, SELFPAY ==
--- NOTE | ~2024-12-12 | XR_ITS ---
CLINICAL HISTORY: M25.562 - Pain in left knee 2 view left knee Comparison: None Findings: No fractures or dislocations. Medial and patellofemoral compartment osteophyte formation. No significant joint space loss. No joint effusion. No radiopaque foreign body. IMPRESSION: 1. Osteoarthropathy in the medial and patellofemoral compartments. No acute findings. This document has been electronically signed by: Jennifer Barbosa MD on 12/13/2024 05:04:24
[2024-12-12 08:41] LABS: Alanine Aminotransferase 26 U/L (0-31); Albumin Level 4.1 g/dL (3.5-5.0); Alkaline Phosphatase 79 U/L (39-117); Anion Gap 9 (12-20); Aspartate Amino Transferase 28 U/L (5-31); Bilirubin Total 0.4 mg/dL (0.0-1.0); Blood Urea Nitrogen 18 mg/dL (9-16); Calcium 9.4 mg/dL (8.4-10.2); Carbon Dioxide 28 mmol/L (22-29); Chloride 111 mmol/L (96-108); Cholesterol 124 mg/dL (<200); Estimated Glomerular Filt Rate > 60; Glucose Fasting 83 mg/dL (60-99); HDL Cholesterol 48 mg/dL (>40); LDL Cholesterol Calculated 64 mg/dL (<100); Sodium 144 mmol/L (135-145); Total Protein 7.5 g/dL (6.5-8.0); Triglycerides 60 mg/dL (<150)
[2024-12-12 08:57] LABS: Vitamin D 25-OH Total 66.6 ng/mL (>30)
== END 2024-12-12 07:37 | disposition home or self-care (01) ==
LOC: HO.LAB 07:36
PROVIDERS: PCP Internal Medicine; Visit Provider Internal Medicine
DX: E55.9 Vitamin D deficiency, unspecified (principal); E78.5 Hyperlipidemia, unspecified; M25.562 Pain in left knee
CPT/HCPCS: 36415; 73560; 80053; 80061; 82306

== ENCOUNTER → 2024-12-12 07:50 | Outpatient (BNV) | payer MEDICARE, MEDICAID, SELFPAY | PROVIDERS: PCP Internal Medicine; Visit Provider Radiology Diagnostic Radiology | DX: M17.12 Unilateral primary osteoarthritis, left knee (principal) | CPT/HCPCS: 73560 ==

== ENCOUNTER 2024-12-25 08:52 | Outpatient (REF) | payer MEDICARE, MEDICAID, SELFPAY ==
--- NOTE | ~2024-12-25 | XR_ITS ---
EXAMINATION: XR KNEE 1-2 VIEWS LEFT HISTORY: M25.569 - Pain in unspecified knee COMPARISON: Comparison is made with the prior examination of the left knee dated 12/12/2024. FINDINGS: Standing AP views of the bilateral knees and an additional sunrise patellar view of the left knee are submitted. Osseous mineralization is normal. There is no fracture or dislocation. There is mild degenerative change of the patellofemoral joint with osteophyte formation. The soft tissues are unremarkable. XR/XR knee LT 2V IMPRESSION: Mild degenerative change of the patellofemoral joint. Electronically signed by: Tim Espinoza MD 12/26/2024 02:16 PM JOHNNY
== END 2024-12-25 08:53 | disposition home or self-care (01) ==
LOC: HO.HOSX 08:52
PROVIDERS: Visit Provider Physician Assistant
DX: M25.561 Pain in right knee (principal); M25.562 Pain in left knee; M17.12 Unilateral primary osteoarthritis, left knee; M54.16 Radiculopathy, lumbar region
CPT/HCPCS: 20610; 73560; 99202; J1010; J2003

== ENCOUNTER 2024-12-25 13:30 | Outpatient (AMB) | payer MEDICARE, MEDICAID, SELFPAY ==
[2024-12-25 14:03] VITALS: BMI 23.0
--- NOTE | 2024-12-25 14:03 | MHC.OFFVIS ---
Vital Signs 12/25/24 14:03 Height 5 ft Weight 118 lb BMI 23.0 Intake Visit Reasons: New Pt - Left knee pain Intake Note: Matilde is a 59 year old non verbal female who presents today with her staff as a new patient for a evaluation of her left knee pain. Patient reports off and on pain for a year. She states that she has sharp pain through out her whole knee and it moves down to her esposito. Patient mentions that her pain is worse when she is standing, walking and walking on a incline. She has tried and failed Tylenol. Allergies No Known Allergies [No Known Allergies*] Allergy (Verified 12/25/24 14:05) HPI HPI New Pt - Left knee pain: Details: Ms. Jodee Jung is a 59-year-old nonverbal female who presents to the office today for left knee pain. She denies any injury or trauma. Additionally when asked about the pain the patient points to the anterior esposito and down into the foot. She also points to her thigh and lower back. An aide is available to accompany the patient to her appointment today and is able to communicate with her slightly I did ask if there was any numbness and tingling in which the patient alerted to her age that she does in the foot. [facility] Medical History GERD (gastroesophageal reflux disease) Mild recurrent major depression Encounter for physical examination Chronic cough Blind right eye Developmental delay, mild Deaf mutism, congenital Allergic rhinitis Hypovitaminosis D Insomnia Depression Surgical History History of esophagogastroduodenoscopy (EGD) Hx of colonoscopy Family History Father Stroke Mother Diabetes Family/Other FH: mental illness Social History Housing: Other Alcohol intake: never Patient Tobacco Use Status: Never used Tobacco e-Cigarette/Vaping Use: Never Used Second Hand Smoke Exposure: No service: No Current occupational status: disabled Cognitive needs: No Hearing needs: Yes Vision needs: Yes Review of Systems Const All systems reviewed & are unremarkable except as noted in HPI and below Physical Exam Vital Signs: BMI result Body Mass Index 23.0 Const General: cooperative, healthy appearing and no acute distress Resp Effort & Inspection: normal respiratory effort and able to speak in complete sentences Cardio Rate: regular rate Peripheral pulses: Peripheral pulses 2+ throughout Skin Lesions: no lesions Rashes: no rashes Extrem Other: Left knee: Normal to inspection. No ecchymosis or erythema. Mild effusion. Alerts to tenderness to palpation along the medial and lateral joint lines. Full knee extension and flexion. NVI. Office Procedures AMB Joint Injection/Aspiration Joint Injection/Aspiration Primary Site: left knee Prep: site was prepped using aseptic technique, ethochloride spray was applied and injection warnings given Injected: 80 mg of, DepoMedrol, with 8 mL of (2% plain lido ) and in the joint Approach Used: anterolateral Procedure: The patient tolerated the procedure well, but had some pain with the injection and there was some relief with the local anesthesia Coding 70558 - Large joint Procedure code (CPT) selection complete Assessment & Plan Assessment & Plan (1) Osteoarthritis of left knee: Code(s): M17.12 - Unilateral primary osteoarthritis, left knee Category: Medical (2) Lumbar radiculopathy: Code(s): M54.16 - Radiculopathy, lumbar region Category: Medical Plan Ms. Jodee Jung is a 59-year-old nonverbal female who presents to the office today for left knee pain. She denies any injury or trauma. Additionally when asked about the pain the patient points to the anterior esposito and down into the foot. She also points to her thigh and lower back. An aide is available to accompany the patient to her appointment today and is able to communicate with her slightly I did ask if there was any numbness and tingling in which the patient alerted to her age that she does in the foot. The patient was offered a cortisone injection in the left knee with 80 mg of DepoMedrol. The patient was explained the risks, benefits, and alternatives to receiving this injection. After receiving consent for the injection, the patient had the procedure done while in the office today. The patient tolerated the procedure well with no complications. Although the patient does have osteoarthritis found on x-ray she is complaining of radiation of pain from her lower back down the entire left lower extremity the involves numbness and tingling. Therefore, I have also placed a referral to Dr. Gracia for further evaluation and treatment of her lower back. Follow-up will be p.r.n., or sooner if needed X-rays obtained in the office today as well as additional views obtained on 12/13/2024 are significant for osteoarthritis of the left knee. No acute fracture dislocation. Orders: Orders XR knee RT 1V Today M25.569 - Pain in unspecified knee XR knee LT 2V Today M25.569 - Pain in unspecified knee Coding Level of Care Code New Pt Level 3 (13782) Diagnoses Osteoarthritis of left knee M17.12 Lumbar radiculopathy M54.16 CPT Codes Coding - 57004 Large joint: 41399 - Large joint ([id number])
--- OUTSIDE RECORDS SUMMARY | 2024-12-25 14:30 | XMS_ITS | Encounter Summary ---
Author Organization [facility] Address [address] [place] [address] Care Team Providers Care Line Inspector Name Role Phone Brad Solo MD Primary Care Provider [phone] Vandana Epps MD Primary Care Provider [phone] Unknown Pcp, Non Rmg Primary Care Provider Unava ilable Encounter Details Date Type Department Care Team (Late st Contact Info) Description 06/26/2015 Orders Only [facility] PARANORMAL INVESTIGATOR [address] [place] [phone] Jory Womack MD [address] [place] [phone] Social History Tobacco Use Types Packs/Day Years Used Date Smoking Tobacco: Never Smokeless Tobacco: Never Alcohol Use Standard Drinks/Week Comments No 0 (1 standard drink = 0.6 oz pur e alcohol) Comments No Sex and Gender Information Value Date Recorded Sex Assigned at Not on file Legal Sex Female 9:26 PM EST Gender Identity Not on file Sexual Orientation Not on file documented as of this encounter Plan of Treatment Upcoming Encounters Date Type Department Care Team (Late st Contact Info) Description 07/08/2025 8:30 AM EDT Office Visit [facility]. Optometry [address] [place] [phone] Agus Jacinto, AYAAN [address] [place] [address] *est pt exam, no cl, no dm, 1 year follow up, aodv, *not elig. until 12/23/24, , 12/21* tommie, interp needed, aoir sent te over sent email to [email or web address] documented as of this encounter Procedures * Due to [facility] law, this organization might not be sharing negative HIV tests. Procedure Name Priority Date/Time Associated Diagnosis Comments CULTURE, URINE, ROUTINE Routine 06/26/2015 5:24 PM EDT Dysuria URINALYSIS, COMPLETE INCLUDES DIPSTICK AND MICROSCOPIC Routine 06/26/2015 5:24 PM EDT Dysuria BV/VAGINITIS PANELDNA PROBE(AFFIRM) Routine 06/26/2015 5:23 PM EDT Vaginal discharge documented in this encounter Results * Due to [employer] law, this organization might not be sharing negative HIV tests. * (ABNORMAL) CULTURE, URINE, ROUTINE (06/26/2015 5:24 PM EDT) [place] count (Urine) >50,000 CFU/ml [facility] Bacteria culture (Urine) Mixed Culture,Repeat if Clinically Indicated(A) No Growth [facility] 06/26/2015 5:24 PM EDT 06/26/2015 5:24 PM EDT Narrative [facility] - 06/28/2015 8:11 AM EDT Patient's primary care provider is: ??N/A Testing performed at: [facility], [address] [place] [address], [address], Business Support Administrator: Vikas Leung M.D. us Jory Womack MD LABORATORY Final R esult [address] [address] DIRECTOR VIKAS LEUNG M.D. * URINALYSIS, COMPLETE INCLUDES DIPSTICK AND MICROSCOPIC (06/26/2015 5:24 PM EDT) Color (Urine) Yellow Yellow [facility] Clarity (Urine) Clear Clear [facility] pH (Urine) 7.5 5.0 - 8.0 [facility] Specific gravity (Urine) 1.015 1.005 - 1.030 [facility] Glucose (Urine) Negative Negative [facility] Bilirubin (Urine) Negative Negative [facility] Ketones (Urine) Negative Negative [facility] Protein (Urine) Negative Negative [facility] Urobilinogen (Urine) 0.2 E.U./dL 0.0 - 1.0 EU/dl [facility] Nitrite (Urine) Negative Negative [facility] Erythrocytes (Urine) Negative Negative [facility] Leukocyte esterase (Urine) Negative Negative [facility] WBC (Urine) NONE SEEN NONE SEEN /HPF [facility] RBC (Urine Sed) NONE SEEN NONE SEEN /HPF [facility] Epithelial cells (Urine sed) RARE NONE SEEN /LPF [facility] Casts (Urine sed) NONE SEEN NONE SEEN /LPF [facility] Crystals (Urine sed) NONE SEEN NONE SEEN /HPF [facility] Bacteria (Urine) NONE SEEN NONE SEEN /HPF [facility] 06/26/2015 5:24 PM EDT 06/26/2015 5:24 PM EDT Narrative [facility] - 06/26/2015 7:12 PM EDT Patient's primary care provider is: ??N/A Testing performed at: [facility], [address] [place] [address], [address], Business Support Administrator: Vikas Leung M.D. Jory Womack MD LAB SAME DAY RESULT Fin al Result [address] [address] DIRECTOR VIKAS LEUNG M.D. * BV/VAGINITIS PANELDNA PROBE (06/26/2015 5:23 PM EDT) Trichomonas vaginalis rRNA (Genital) NOT DETECTED NOT DETECTED [facility] Comment:{TRICHOMONAS: {[id number]) Gardnerella vaginalis rRNA (Genital) NOT DETECTED NOT DETECTED [facility] Comment:{GARDNERELLA: {[id number]) Analisa sp rRNA (Vag) NOT DETECTED NOT DETECTED [facility] Comment:{ANALISA: {[id number]) 06/26/2015 5:23 PM EDT 06/26/2015 11:16 PM EDT Narrative Resulting Agency Comment [id number] Jory Womack MD LABORATORY Final R esult Performing Organization Address City/State/[facility] Co de Phone Number [facility] [address] [place] [address] documented in this encounter Visit Diagnoses Diagnosis Dysuria Vaginal discharge Leukorrhea, not specified as infective documented in this encounter Care Teams Line Inspector Relationship Specialty Start Date End Date Brad Solo MD PCP - General 12/30/14 07/27/17 Vandana Epps MD PCP - General Internal Medicine 07/28/17 10/12/22 Unknown Pcp, Non Rmg PCP - General 10/13/22 documented as of this encounter
--- OUTSIDE RECORDS SUMMARY | 2024-12-25 14:30 | XMS_ITS | Encounter Summary ---
Author Organization [facility] Address [address] [place] [address] Care Team Providers Care Novelty Twister Tender Name Role Phone Brad Solo MD Primary Care Provider [phone] Vandana Epps MD Primary Care Provider [phone] Unknown Pcp, Non Rmg Primary Care Provider Unava ilable Encounter Details Date Type Department Care Team (Late Contact Info) Description 09/01/2015 Orders Only [facility] [address] [place] [phone] John Oviedo MD [facility] Allergy, Asthma & Immunology [address] [place] [phone] Social History Tobacco Use Types Packs/Day Years [...] on file documented as of this encounter Progress Notes * John Oviedo MD - 09/03/2015 9:51 AM EDTQuick Note: NO dust mite allergy documented in this encounter Plan of Treatment Upcoming Encounters Date Type Department Care Team (Late Contact Info) Description 07/08/2025 8:30 AM EDT Office Visit [facility] Optometry [address] [place] [phone] Agus Jacinto, OD [address] [place] [address] *est pt exam, no cl, no dm, 1 year follow up, aodv, *not elig. until 12/23/24, , 12/21* tommie, interp needed, aoir sent te over sent email to [email or web address] documented as of this encounter Procedures * Due to [place] [employer] law, this organization might not be sharing negative HIV tests. Procedure Name Priority Date/Time Associated Diagnosis Comments DERMATOPHAGOIDES PTERONYSSINUS (D1) IGE Routine 09/01/2015 2:10 PM EDT Sinus congestion PND (post-nasal drip) Allergic rhinitis due to pollen Gastroesophageal reflux disease, esophagitis presence not specified DERMATOPHAGOIDES FARINAE (D2) IGE Routine 09/01/2015 2:10 PM EDT Sinus congestion PND (post-nasal drip) Allergic rhinitis due to pollen Gastroesophageal reflux disease, esophagitis presence not specified documented in this encounter Results * Due to [place] [employer] law, this organization might not be sharing negative HIV tests. * DERMATOPHAGOIDES FARINAE (D2) IGE (09/01/2015 2:10 PM EDT) Dermatophagoides Farinae(D2) IgE <0.35 kU/L [facility] Comment:{DERMATOPHAGOIDES FA RINAE (D2) IGE {[id number]) Dermatophagoides Farinae(D2) Class 0 [facility] Comment:{CLASS {[id number]) 09/01/2015 2:10 PM EDT 09/01/2015 7:51 PM EDT Narrative Resulting Agency Comment [id number] us John Oviedo MD LABORATORY Final Resu lt [facility] [address] [place] [address] * DERMATOPHAGOIDESPTERONYSSINUS (D1) IGE (09/01/2015 2:10 PM EDT) Dermatophagoidespteronyssinu s (D1) IgE <0.35 kU/L [facility] Comment:{DERMATOPHAGOIDES PT ERONYSSINUS (D1) IGE {[id number]) Dermatophagoides pteronyssin us (D1) Class 0 [facility] Comment:{CLASS {[id number]) 09/01/2015 2:10 PM EDT 09/01/2015 7:51 PM EDT Narrative Resulting Agency Comment [id number] us John Oviedo MD LABORATORY Final Resu lt [facility] [address] [place] [address] documented in this encounter Visit Diagnoses Diagnosis Sinus congestion Other diseases of nasal cavity and sinuses PND (post-nasal drip) Postnasal drip Allergic rhinitis due to pollen Gastroesophageal reflux disease, esophagitis presence not specified documented in this encounter Care Teams Novelty Twister Tender Relationship Specialty Start Date End Date Brad Solo MD PCP - General 12/30/14 07/27/17 Vandana Epps MD PCP - General Internal Medicine 07/28/17 10/12/22 Unknown Pcp, Non Rmg PCP - General 10/13/22 documented as of this encounter
--- OUTSIDE RECORDS SUMMARY | 2024-12-25 14:30 | XMS_ITS | Encounter Summary ---
Author Organization [facility] Address [address] [place] [address] Care Team Providers Care Slimer Name Role Phone Vandana Epps MD Primary Care Provider [phone] Unknown Pcp, Non Rmg Primary Care Provider Unava ilable Reason for Visit * Reason Comments E-prescribing Refill Request Encounter Details Date Type Department Care Team (Late st Contact Info) Description 06/27/2018 Refill [facility] Adult Medicine [address] [place] [phone] Jeanine Mcpherson NP E-prescribing Refill Request Social History Tobacco Use Types Packs/Day Years [...] on file documented as of this encounter Miscellaneous Notes * Telephone Encounter - Odalys Del Riot - 06/27/2018 9:41 AM EDT Any special requests or concerns? Medication was last filled on Omeprazole (PRILOSEC) 40 MG CAPSULE DELAYED RELEASE 90 Cap 0/0 02/24/2018 Sig - Route: 1 CAPSULE DAILY - Oral Order: [id number] . Faxed/E-prescribed medication renewal request(s) for Matilde Jung 52 y.o. female received from pharmacy. Verified and Confirmed pharmacy for patient. Last CPE with this specialty: 10/12/2017 Last OV with this specialty: 06/14/2018 Next OV: No future appointments. Pertinent lab results: No labs suggested for any medication orders signed or pended in this encounter. Refresh if any orders changed. Allergies: Review of patient's allergies indicates no known allergies. BP Readings from Last 1 Encounters: 06/14/18 114/71 Patient Active Problem List Diagnosis Date Noted ??? Postnasal drip 06/23/2017 ??? Perimenopausal disorder 02/24/2017 ??? Chronic cough 02/18/2017 ??? Non-allergic rhinitis 09/01/2015 ??? Vitamin D deficiency 04/10/2015 ??? Post-nasal drainage 04/10/2015 ??? Gastroesophageal reflux disease without esophagitis 04/10/2015 ??? Colon polyps 04/10/2015 ??? Cervical cancer screening 06/12/2014 never sa - never had pap - done 05/2014 - if neg/neg ok for lo risk screening 10/11/2016 Impression: Pap results show Pap negative HPV negative Plan: Repeat cytology in 3 years ??? Abnormal mammogram, unspecified 06/12/2014 add views u/s rt - asymmetry/calcs ??? Deafness 12/13/2013 ??? Sinus congestion 12/13/2013 ??? Varicose veins of both lower extremities 12/13/2013 ??? Insomnia 12/13/2013 ??? Anxiety 12/13/2013 Current Outpatient Prescriptions on File Prior to Visit Medication Sig Dispense Refill ??? RaNITidine HCl 300 MG Tab TAKE 1 TABLET BY MOUTH AT BEDTIME 90 Tab 1 ??? Cholecalciferol (VITAMIN D3) 2000 UNITS Cap TAKE ONE CAPSULE BY MOUTH EVERY MORNING 90 Cap 1 ??? Omeprazole (PRILOSEC) 40 MG CAPSULE DELAYED RELEASE 1 CAPSULE DAILY 90 Cap 0 ??? Norethindrone, Contraceptive, 0.35 MG Tab 1 TABLET DAILY 28 Tab 9 ??? Acetaminophen (RA ACETAMINOPHEN) 650 MG Tab CR Take 1 tablet by mouth every 4 hours as needed Mild pain, headache or fever over 100 degrees Not to exceed 3 doses in 24 period 60 Tab 0 ??? FLUTICASONE PROPIONATE, NASAL, (FLONASE) 50 MCG/ACT Suspension 2 sprays in each nostril twice daily 1 Inhaler 11 ??? Loratadine-Pseudoephedrine (CLARITIN-D 24 HOUR) 10-240 MG TABLET SR 24 HR 1 TABLET DAILY - takein the morning 30 Tab 11 ??? FLUoxetine HCl 10 MG Tab 1 TABLET TWICE DAILY ??? TraZODone HCl 100 MG Tab 1 tab at bedtime documented in this encounter Plan of Treatment Upcoming Encounters Date Type Department Care Team (Late st Contact Info) Description 07/08/2025 8:30 AM EDT Office Visit [facility]. Optometry [address] [place] [phone] Agus Jacinto, OD [address] [place] [address] *est pt exam, no cl, no dm, 1 year follow up, aodv, *not elig. until 12/23/24, , 12/21* tommie, interp needed, aoir sent te over sent email to [email or web address] documented as of this encounter Visit Diagnoses Not on filedocumented in this encounter Care Teams Slimer Relationship Specialty Start Date End Date Vandana Epps MD PCP - General Internal Medicine 07/28/17 10/12/22 Unknown Pcp, Non Rmg PCP - General 10/13/22 documented as of this encounter
--- OUTSIDE RECORDS SUMMARY | 2024-12-25 14:30 | XMS_ITS | Encounter Summary ---
Author Organization [facility] Address [address] [place] [address] Care Team Providers Care Advice Line Rn Name Role Phone Vandana Epps MD Primary Care Provider [phone] Unknown Pcp, Non Rmg Primary Care Provider Unava ilable Encounter Details Date Type Department Care Team (Late st Contact Info) Description 10/12/2017 Orders Only [facility] Adult Medicine [address] [place] [phone] Vandana Epps MD [facility] [address] [facility] [address] [place] [phone] Social History Tobacco Use Types Packs/Day Years [...] as of this encounter Progress Notes * Vandana Epps - 10/17/2017 10:45 PM EST Nl lab letter documented in this encounter Plan of Treatment Upcoming Encounters Date Type Department Care Team (Late st Contact Info) Description 07/08/2025 8:30 AM EDT Office Visit [facility]. Optometry [address] [place] [phone] JacintoAgus mclaughlin, OD [address] [facility] [place] [address] *est pt exam, no cl, no dm, 1 year follow up, aodv, *not elig. until 12/23/24, , 12/21* tommie, interp needed, aoir sent te over sent email to [email or web address] documented as of this encounter Procedures * Due to [place] [employer] law, this organization might not be sharing negative HIV tests. Procedure Name Priority Date/Time Associated Diagnosis Comments CBC INCLUDES DIFFERENTIAL AND PLATELET COUNT Routine 10/12/2017 1:09 PM EST Back pain, unspecified back location, unspecified back pain laterality, unspecified chronicity Abdominal pain, unspecified abdominal location LIPID PANEL WITH REFLEX TO DIRECT LDL Routine 10/12/2017 1:09 PM EST Screening for hyperlipidemia COMPREHENSIVE METABOLIC PANEL WITH GFR Routine 10/12/2017 1:09 PM EST Back pain, unspecified back location, unspecified back pain laterality, unspecified chronicity Abdominal pain, unspecified abdominal location SYPHILIS (FTA) ANTIBODY CASCADING REFLEX TO RPR/TITER (*PREFERRED SCREEN*) Routine 10/12/2017 1:07 PM EST Screen for STD (sexually transmitted disease) HEPATITIS B SURFACE ANTIGEN Routine 10/12/2017 1:07 PM EST Screen for STD (sexually transmitted disease) HEPATITIS C AB WITH REFLEX TO RNA PCR, SERUM Routine 10/12/2017 1:07 PM EST Screen for STD (sexually transmitted disease) documented in this encounter Results * Due to [place] [employer] law, this organization might not be sharing negative HIV tests. * (ABNORMAL) LIPID PANEL WITH REFLEX TO DIRECT LDL (10/12/2017 1:09 PM EST) Cholesterol 193 <200 mg/dL [facility] Triglyceride 123 <150 mg/dL [facility] HDL Cholesterol 40(L) >40 mg/dL [facility] Comment: NCEP GUIDELINES Desireable >60 mg/dL Borderline 40-59 mg/dL ?? Undesirable <40 mg/dL LDL Cholesterol 129 <130 mg/dL [facility] CHOL/HDL Ratio 5 0 - 5 CALC [facility] 10/12/2017 1:09 PM EST 10/12/2017 1:09 PM EST Narrative [facility] - 10/12/2017 2:49 PM EST Patient is not fasting Patient's primary care provider is: ??N/A Testing performed at: [facility], [address] [place] [address], [address], Television Director: Vikas Leung M.D. Vandana Epps MD LABORATORY Final Result [address] [address] DIRECTOR VIKAS LEUNG M.D. * CBC INCLUDES DIFFERENTIAL AND PLATELET COUNT (10/12/2017 1:09 PM EST) WBC 7.7 3.8 - 10.8 K/uL [facility] Neutrophils # 5.7 1.5 - 7.8 K/uL [facility] Immature Granulocytes # 0.01 0.00 - 0.07 K/uL [facility] Comment:Cells included in IM M GRANS # : Metamyelocytes, Myelocytes and Promyelocytes. Lymphocytes # 1.4 0.9 - 3.9 K/uL [facility] Monocytes # 0.5 0.2 - 1.0 K/uL [facility] Eosinophils # 0.1 0.0 - 0.5 K/uL [facility] Basophils # 0.0 0.0 - 0.2 K/uL [facility] Neutrophils % 74.1 % [facility] Immature Granulocytes % 0.10 % [facility] Comment:Cells included in IM M GRANS % : Metamyelocytes, Myelocytes and Promyelocytes. Lymphocytes % 18.2 % [facility] Monocytes % 6.4 % [facility] Eosinophils % 0.9 % [facility] Basophils % 0.3 % [facility] RBC 4.25 3.80 - 5.10 M/uL [facility] Hemoglobin 12.9 11.7 - 15.5 g/dL [facility] Hematocrit 38.5 35.0 - 45.0 % [facility] MCV 90.6 80.0 - 100.0 fl [facility] MCH 30.4 27.0 - 33.0 pg [facility] MCHC 33.5 32.0 - 36.0 g/dL [facility] RDW 12.4 11.0 - 15.0 % [facility] PLT 265 140 - 400 K/uL [facility] 10/12/2017 1:09 PM EST 10/12/2017 1:09 PM EST Narrative [facility] - 10/12/2017 2:11 PM EST Patient is not fasting Patient's primary care provider is: ??N/A Testing performed at: [facility], [address] [place] [address], [address], Television Director: Vikas Leung M.D. Vandana Epps MD LAB SAME DAY RESULT Final Resu lt [address] [address] DIRECTOR VIKAS LEUNG M.D. * COMPREHENSIVE METABOLIC PANEL WITH GFR (10/12/2017 1:09 PM EST) Glucose 88 65 - 99 mg/dl [facility] Urea Nitrogen Blood (BUN) 13 7 - 25 mg/dL [facility] Creatinine 0.88 0.50 - 1.16 mg/dL [facility] Sodium 140 136 - 145 mmo/L [facility] Potassium 4.8 3.5 - 5.3 mmol/L [facility] Chloride 100 98 - 107 mmo/L [facility] Calcium 10.2 8.5 - 10.4 mg/dL [facility] Protein Total (Serum) 8.0 6.0 - 8.3 g/dL [facility] Albumin 4.8 3.5 - 5.2 g/dL [facility] Globulin 3 2 - 4 G/DL [facility] Bilirubin Total 0.30 0.00 - 1.20 mg/dL [facility] Alkaline phosphatase 53 33 - 130 U/L [facility] AST (SGOT) 17 <38 U/L [facility] ALT (SGPT) 12 <47 U/L [facility] Carbon dioxide 28 23 - 33 mmol/L [facility] GFR 71 >60 ml/min [facility] Comment:If the patient is Af rican Czech, please multiply result by 1.210 10/12/2017 1:09 PM EST 10/12/2017 1:09 PM EST Narrative [facility] - 10/12/2017 2:49 PM EST Patient is not fasting Patient's primary care provider is: ??N/A Testing performed at: [facility], [address] [place] [address], [address], Television Director: Vikas Leung M.D. Vandana Epps MD LABORATORY Final Result Performing Organization Address [facility] Co de Phone Number [address] [address] DIRECTOR VIKAS LEUNG M.D. * HEPATITIS B SURFACE ANTIGEN (10/12/2017 1:07 PM EST) Hepatitis B virus surface Ag NON-REACTI VE NON-REACT ALEXIS [facility] 10/12/2017 1:07 PM EST 10/12/2017 7:10 PM EST Narrative Resulting Agency Comment [id number] Vandana Epps MD LABORATORY Final Result [facility] [address] [place] [address] * SYPHILIS (FTA) ANTIBODY CASCADING REFLEX TO RPR/TITER (*PREFERRED SCREEN*) (10/12/2017 1:07 PM EST) Treponema pallidum Ab NEGATIVE NEGATIVE [facility] Comment: No antibodies to T. pallidum (the agent causing syphilis) were detected in the specimen. This result, however, does not exclude very recent T. pallidum infection; testing of a second specimen, collected 2-4 weeks after this specimen, is recommended if the index of suspicion for recent infection is high. 10/12/2017 1:07 PM EST 10/12/2017 7:10 PM EST Narrative Resulting Agency Comment [id number] Vandana Epps MD LABORATORY Final Result Performing Organization Address City/[facility] Co de Phone Number [facility] [address] [place] [address] * HEPATITIS C AB WITH REFLEX TO RNA PCR, SERUM (10/12/2017 1:07 PM EST) Hepatitis C virus Ab NON-REACTI VE NON-REACT ALEXIS [facility] Hepatitis C virus Ab Signal/Cutoff 0.02 <1.00 [facility] 10/12/2017 1:07 PM EST 10/12/2017 7:10 PM EST Narrative Resulting Agency Comment [id number] us Vandana Epps MD LABORATORY Final Result Performing Organization Address City/[facility] Co de Phone Number [facility] [address] [place] [address] documented in this encounter Visit Diagnoses Diagnosis Screen for STD (sexually transmitted disease) Screening examination for venereal disease Back pain, unspecified back location, unspecified back pain laterality, unspecified chronicity Abdominal pain, unspecified abdominal location Screening for hyperlipidemia Screening for lipoid disorders documented in this encounter Care Teams Advice Line Rn Relationship Specialty Start Date End Date Vandana Epps MD PCP - General Internal Medicine 07/28/17 10/12/22 Unknown Pcp, Non Rmg PCP - General 10/13/22 documented as of this encounter
--- OUTSIDE RECORDS SUMMARY | 2024-12-25 14:30 | XMS_ITS | Encounter Summary ---
Author Organization [facility] Address [address] [place] [address] Care Team Providers Care Director Corporate Sales Name Role Phone Brad Solo MD Primary Care Provider [phone] Vandana Epps MD Primary Care Provider [phone] Unknown Pcp, Non Rmg Primary Care Provider Unava ilable Encounter Details Date Type Department Care Team (Late st Contact Info) Description 05/17/2017 Orders Only [facility] Adult Medicine [address] [place] [phone] Neena Crocker LPN [facility] [address] [place] [phone] Social History Tobacco Use Types Packs/Day Years [...] Description 07/08/2025 8:30 AM EDT Office Visit [facility]. Optometry [address] [place] [phone] Agus Jacinto, OD [address] [place] [address] *est pt exam, no cl, no dm, 1 year follow up, aodv, *not elig. until 12/23/24, , 12/21* tommie, interp needed, aoir sent te over sent email to [email or web address] documented as of this encounter Visit Diagnoses Not on filedocumented in this encounter Care Teams Director Corporate Sales Relationship Specialty Start Date End Date Brad Solo MD PCP - General 12/30/14 07/27/17 Vandana Epps MD PCP - General Internal Medicine 07/28/17 10/12/22 Unknown Pcp, Non Rmg PCP - General 10/13/22 documented as of this encounter
--- OUTSIDE RECORDS SUMMARY | 2024-12-25 14:30 | XMS_ITS | Encounter Summary ---
Author Organization [facility] Address [address] [place] [address] Care Team Providers Care Economic Analysis Director Name Role Phone Unknown Pcp, Non Rmg Primary Care Provider Unava ilable Reason for Visit * Reason Comments Appointment Encounter Details Date Type Department Care Team (Late st Contact Info) Description 04/10/[address] [facility] [address] [place] [phone] Agus Jacinto OD [address] [place] [address] Appointment Social History Tobacco Use Types Packs/Day Years Used Date Smoking Tobacco: Never Smokeless Tobacco: Never Alcohol Use Standard Drinks/Week Comments No 0 (1 standard drink = 0.6 oz pur e alcohol) Intimate Partner Violence Answer Date R ecorded Fear of Current or Ex-Partner Not on file Emotionally Abused Not on file 07/20/2023 Physically Abused Not on file 07/20/2023 Sexually Abused Not on file 07/20/2023 Feel Safe at Home Not on file 07/20/2023 Comments No Sex and Gender Information Value Date Recorded Sex Assigned at Not on file Legal Sex Female 9:26 PM EST Gender Identity Not on file Sexual Orientation Not on file documented as of this encounter Miscellaneous Notes * Telephone Encounter - JAY Mar - 04/10/2024 5:29 PM EDT Future Appointments Date Time Provider Department Phone 07/04/24 8:30 AM Agus Jacinto OD [facility] Optometry [phone] Pt need a sign electronic scale assembler and tester had to reschedule to an ov2 contact sign electronic scale assembler and tester for this appt sent email to documented in this encounter Plan of Treatment Upcoming Encounters Date Type Department Care Team (Late st Contact Info) Description 07/08/2025 8:30 AM EDT Office [facility] [address] [place] [phone] Agus Jacinot, AYAAN [address] [place] [address] *est pt exam, no cl, no dm, 1 year follow up, aodv, *not elig. until 12/23/24, , 12/21* tommie, interp needed, aoir sent te over sent email to [email or web address] documented as of this encounter Visit Diagnoses Not on filedocumented in this encounter Care Teams Economic Analysis Director Relationship Specialty Start Date End Date Unknown Pcp, Non Rmg PCP - General 10/13/22 documented as of this encounter
--- OUTSIDE RECORDS SUMMARY | 2024-12-25 14:30 | XMS_ITS | Encounter Summary ---
Author Organization [facility] Address [address] [place] [address] Care Team Providers Care Oncology Pharmacist Name Role Phone Vandana Epps MD Primary Care Provider [phone] Unknown Pcp, Non Rmg Primary Care Provider Unava ilable Encounter Details Date Type Department Care Team (Late st Contact Info) Description 10/10/2017 Orders Only [facility] ORCHARD SPRAYER [address] [place] [phone] Jory Womack MD [address] [place] [phone] Social History Tobacco Use Types Packs/Day Years [...] as of this encounter Progress Notes * Karol Jimenez LPN - 10/11/2017 11:09 AM EST Normal test result letter sent to pt documented in this encounter Plan of Treatment Upcoming Encounters Date Type Department Care Team (Late st Contact Info) Description 07/08/2025 8:30 AM EDT Office Visit [facility]. Optometry [address] [place] [address] Agus Jacinto, OD [address] [place] [address] *est pt exam, no cl, no dm, 1 year follow up, aodv, *not elig. until 12/23/24, , 12/21* tommie, interp needed, aoir sent te over sent email to [email or web address] documented as of this encounter Procedures * Due to [facility] law, this organization might not be sharing negative HIV tests. Procedure Name Priority Date/Time Associated Diagnosis Comments CHLAMYDIA TRACHOMATIS/N. GONORRHOEAE (GC) RNA, TMA (URINE) Routine 10/10/2017 4:30 PM EST Screening for chlamydial disease documented in this encounter Results * Due to [facility] law, this organization might not be sharing negative HIV tests. * CHLAMYDIA TRACHOMATIS/N. GONORRHOEAE (GC) RNA, TMA (URINE) (10/10/2017 4:30 PM EST) Chlamydia trachomatis rRNA NOT DETECTED NOT DETECTED [facility] Neisseria Gonorrhoeae rRNA NOT DETECTED NOT DETECTED [facility] COMMENT SEE NOTE [facility] Comment: This test was performed using the APTIMA COMBO2 Assay ([employer] The analytical performance characteristics of this assay, when used to test [facility] specimens have been determined by [facility]. 10/10/2017 4:30 PM EST 10/10/2017 10:00 PM EST Narrative Resulting Agency Comment [id number] us Jory Womack MD LABORATORY Final R esult Performing Organization Address City/State/[facility] Co de Phone Number [facility] [address] [place] [address] documented in this encounter Visit Diagnoses Diagnosis Screening for chlamydial disease Special screening examination for unspecified chlamydial disease documented in this encounter Care Teams Oncology Pharmacist Relationship Specialty Start Date End Date Vandana Epps MD PCP - General Internal Medicine 07/28/17 10/12/22 Unknown Pcp, Non Rmg PCP - General 10/13/22 documented as of this encounter
--- OUTSIDE RECORDS SUMMARY | 2024-12-25 14:30 | XMS_ITS | Encounter Summary ---
Author Organization [facility] Address [address] [place] [address] Care Team Providers Care Herb Grower Name Role Phone Unknown Pcp, Non Rmg Primary Care Provider Unava ilable Reason for Visit * Reason Comments E-prescribing Refill Request Encounter Details Date Type Department Care Team (Late st Contact Info) Description 11/19/2024 Refill [facility]. Optometry [address] [place] [address] Agus Jacinto, AYAAN [address] [place] [address] E-prescribing Refill Request Social History Tobacco Use [...] encounter Miscellaneous Notes * Telephone Encounter - Maria Bradley Tech - 11/20/2024 7:22 AM EST Any special requests or concerns? none Faxed/E-prescribed medication renewal request(s) for Matilde Jung 59 y.o. female received from pharmacy. The most recent pharmacy on file was used. Last CPE with this specialty: Not Found Last OV with this specialty: Not Found Next OV: Future Appointments Date Time Provider Department Phone 07/08/25 8:30 AM Agus Jacinto, AYAAN [facility] [phone] Pertinent lab results: No labs suggested for any medication orders signed or pended in this encounter. Refresh if any orders changed. Allergies: Patient has no known allergies. BP Readings from Last 1 Encounters: 12/03/20 122/70 Outstanding Radiology Orders Test Ordered Date Ordering Provider REQUEST FOR MAMMOGRAPHY BILATERAL(DX: SCREENING FOR BREAST CANCER Z12.31)(1 YR FROM LAST) NON-FC 08/19/2017 Brad Solo MD MAMMOGRAPHY BILAT 3D RISSA(DX:SCREENING FOR BREAST CA) 09/12/2019 Vandana Epps MD Current Outpatient Medications on File Prior to Visit Medication Sig Dispense Refill Polyethyl Glycol-Propyl Glycol (HM Lubricating Tears) 0.4-0.3 % Solution INSTILL 1 DROP INTO EACH EYE TWICE DAILY. 15 mL 1 Mirtazapine (REMERON) 30 MG tablet TAKE 1 TABLET BY MOUTH NIGHTLY AT 8PM PLUS OR MINUS TWO HOURS. Fluoxetine HCl (PROzac) 10 MG capsule Loratadine-Pseudoephedrine (Claritin-D 24 Hour) 10-240 MG per 24 hr tablet Take 1 tablet by mouth 1(one) time each day FLUTICASONE PROPIONATE, NASAL, (FLONASE) 50 MCG/ACT nasal spray Administer two sprays into each nostril 2 (two) times a day IN EACH NOSTRIL 3 Bottle 5 Famotidine (PEPCID) 20 MG tablet Take one tablet (20 mg total) by mouth 2 (two) times a day 60 tablet 3 Vitamin D3 (VITAMIN D-3) 50 MCG (2000 UT) capsule TAKE 1 CAPSULE BY MOUTH EVERY DAY IN THE MORNING 90 capsule 3 Acetaminophen (Mapap Arthritis Pain) 650 MG 8 hr tablet Take one tablet (650 mg total) by mouth every 8 (eight) hours if needed for mild pain or headaches (or fever-no more than 3 daily) 40 tablet 1 FLUoxetine HCl 10 MG Tab 1 daily TraZODone HCl 100 MG Tab 1 tab at bedtime documented in this encounter Plan of Treatment Upcoming Encounters Date Type Department Care Team (Late st Contact Info) Description 07/08/2025 8:30 AM EDT Office Visit [facility]. Optometry [address] [place] [phone] Agus Jacinto, OD [address] [place] [address] *est pt exam, no cl, no dm, 1 year follow up, aodv, *not elig. until 12/23/24, , 12/21* tommie, interp needed, aoir sent te over sent email to [email or web address] documented as of this encounter Visit Diagnoses Not on filedocumented in this encounter Care Teams Herb Grower Relationship Specialty Start Date End Date Unknown Pcp, Non Rmg PCP - General 10/13/22 documented as of this encounter
--- OUTSIDE RECORDS SUMMARY | 2024-12-25 14:30 | XMS_ITS | Encounter Summary ---
Author Organization [facility] Address [address] [place] [address] Care Team Providers Care Oil And Gas Principal Name Role Phone Vandana Epps MD Primary Care Provider [phone] Unknown Pcp, Non Rmg Primary Care Provider Unava ilable Reason for Referral * CONSULT AND TREATMENT (Routine) - Auth Not Needed Specialty Diagnoses / Procedures Referred By Contac t Referred To Contact Mammography Diagnoses annual screening Procedures REQUEST FOR MAMMOGRAPHY BILATERAL(DX: SCREENING FOR BREAST CANCER Z12.31)(1 YR FROM LAST) NON-FC Vandana Epps MD Phone: tel: fax: [facility] Referral ID Status Reason Start Date Expiration Date Visits Requested Visits Authorized [id number] Auth Not Needed Continuity of Care 09/15/2017 1 1 Encounter Details Date Type Department Care Team (Late st Contact Info) Description 09/15/2017 Orders Only [facility] Adult Medicine [address] [place] [phone] Vandana Epps MD [facility] [address] [facility] [address] [place] [address] Social History Tobacco Use Types [...] Description 07/08/2025 8:30 AM EDT Office Visit [facility]. Optometry [address] [place] [phone] Agus Jacinto, OD [address] [place] [address] *est pt exam, no cl, no dm, 1 year follow up, aodv, *not elig. until 12/23/24, , 12/21* tommie, interp needed, aoir sent te over sent email to [email or web address] Scheduled Orders Name Type Priority Associated Diagnoses Orde r Schedule REQUEST FOR MAMMOGRAPHY BILATERAL(DX: SCREENING FOR BREAST CANCER Z12.31)(1 YR FROM LAST) NON-FC Imaging Routine Ordered: 1 documented as of this encounter Visit Diagnoses Not on filedocumented in this encounter Care Teams Oil And Gas Principal Relationship Specialty Start Date End Date Vandana Epps MD PCP - General Internal Medicine 07/28/17 10/12/22 Unknown Pcp, Non Rmg PCP - General 10/13/22 documented as of this encounter
--- OUTSIDE RECORDS SUMMARY | 2024-12-25 14:31 | XMS_ITS | Encounter Summary ---
Author Organization [facility] Address [address] [place] [address] Care Team Providers Care Tangible Personal Property Appraiser Name Role Phone Brad Solo MD Primary Care Provider [phone] Vandana Epps MD Primary Care Provider [phone] Unknown Pcp, Non Rmg Primary Care Provider Unava ilable Encounter Details Date Type Department Care Team (Late st Contact Info) Description 08/23/2016 Orders Only [facility] AUTO DAMAGE ESTIMATOR [address] [place] [phone] Jory Womack MD [address] [place] [phone] Social History Tobacco Use Types Packs/Day Years [...] Office Visit [facility]. Optometry [address] [place] [phone] Agus Jacinto, AYAAN [address] [place] [address] *est pt exam, no cl, no dm, 1 year follow up, aodv, *not elig. until 12/23/24, MH, 12/21* tommie, interp needed, aoir sent te over sent email to [email or web address] documented as of this encounter Visit Diagnoses Not on filedocumented in this encounter Care Teams Tangible Personal Property Appraiser Relationship Specialty Start Date End Date Brad Solo MD PCP - General 12/30/14 07/27/17 Vandana Epps MD PCP - General Internal Medicine 07/28/17 10/12/22 Unknown Pcp, Non Rmg PCP - General 10/13/22 documented as of this encounter
--- OUTSIDE RECORDS SUMMARY | 2024-12-25 14:31 | XMS_ITS | Encounter Summary ---
Author Organization [facility] Address [address] [place] [address] Care Team Providers Care Automotive Parts Specialist Name Role Phone Vandana Epps MD Primary Care Provider [phone] Unknown Pcp, Non Rmg Primary Care Provider Unava ilable Encounter Details Date Type Department Care Team (Late st Contact Info) Description 10/18/2018 Orders Only [facility] Adult Medicine [address] [place] [phone] Vandana Epps MD [facility] [address] [facility] [address] [place] [address] Social History Tobacco Use Types [...] Description 07/08/2025 8:30 AM EDT Office Visit [facility] [address] [place] [phone] Agus Jacinto, OD [address] [place] [address] *est pt exam, no cl, no dm, 1 year follow up, aodv, *not elig. until 12/23/24, , 12/21* tommie, interp needed, aoir sent te over sent email to [email or web address] documented as of this encounter Procedures * Due to [facility] law, this organization might not be sharing negative HIV tests. Procedure Name Priority Date/Time Associated Diagnosis Comments EKG-TO BE READ & BILLED BY ADULT OR PEDIATRIC CARDIOLOGY Routine 10/18/2018 10:39 AM EST Chest pain, unspecified type CBC INCLUDES DIFFERENTIAL AND PLATELET COUNT Routine 10/18/2018 10:17 AM EST Weight loss THYROID STIMULATING HORMONE (TSH) WITH FREE T4 REFLEX, SERUM Routine 10/18/2018 10:17 AM EST Weight loss LIPID PANEL WITH REFLEX TO DIRECT LDL Routine 10/18/2018 10:17 AM EST Screening for hypercholesterolemia COMPREHENSIVE METABOLIC PANEL WITH GFR Routine 10/18/2018 10:17 AM EST Weight loss documented in this encounter Results * Due to [place] state law, this organization might not be sharing negative HIV tests. * EKG-TO BE READ AND BILLED BY CARDIOLOGY (10/18/2018 10:39 AM EST) VENTRICULAR RATE 76 BPM MUS E EKG SYSTEM ATRIAL RATE 76 BPM MUSE EKG SYSTEM P-R INTERVAL 174 ms MUSE EK G SYSTEM QRS DURATION 92 ms MUSE EK G SYSTEM QT 378 ms MUSE EKG SYSTEM QTC 425 ms MUSE EKG SYSTEM P AXIS 62 degrees MUSE EKG SYSTEM R AXIS 13 degrees MUSE EKG SYSTEM T AXIS 51 degrees MUSE EKG SYSTEM EKG INTERPRETATION Normal sinus rhythm Normal ECG When compared with ECG of 03/06/14 ??borderlin e 1st degree AV block is not present Confirmed by Batsheva Tamez ([id number]), makeup editor RIKY LEWIS ([id number]) on 10/24/2018 8:02:37 AM MUSE EKG SYSTEM 10/18/2018 10:3 9 AM EST 10/24/2018 8:02 AM EST us Vandana Epps MD CARDIOVASCULAR-WITH INBSKT RTG Final Result MUSE EKG SYSTEM * (ABNORMAL) LIPID PANEL WITH REFLEX TO DIRECT LDL (10/18/2018 10:17 AM EST) Cholesterol 167 <200 mg/dL [facility] Triglyceride 112 <150 mg/dL [facility] HDL Cholesterol 40(L) >40 mg/dL [facility] Comment: NCEP GUIDELINES Desireable >60 mg/dL Borderline 40-59 mg/dL ?? Undesirable <40 mg/dL LDL Cholesterol 104 <130 mg/dL [facility] CHOL/HDL Ratio 4 0 - 5 CALC [facility] 10/18/2018 10:1 7 AM EST 10/18/2018 10:17 AM EST Narrative [facility] - 10/18/2018 1:38 PM EST non fasting Patient's primary care provider is: ??N/A Testing performed at: [facility], [address] [place] [address], [id number], Pizza Baker: Seth Gutierrez MD us Vandana Epps MD LABORATORY Final Result Performing Organization Address [facility] Co de Phone Number [address] [address] DIRECTOR Seth Gutierrez MD * THYROID STIMULATING HORMONE (TSH) WITH FREE T4 REFLEX, SERUM (10/18/2018 10:17 AM EST) TSH (Thyrotropin) 2.16 0.40 - 4.50 uIU/ml [facility] 10/18/2018 10:1 7 AM EST 10/18/2018 10:17 AM EST Narrative [facility] - 10/18/2018 1:38 PM EST non fasting Patient's primary care provider is: ??N/A Testing performed at: [facility], [address] [place] [address], [id number], Pizza Baker: Seth Gutierrez MD us Vandana Epps MD LABORATORY Final Result Performing Organization Address [facility]/ZIP Co de Phone Number [address] [address] DIRECTOR Seth Gutierrez MD * COMPREHENSIVE METABOLIC PANEL WITH GFR (10/18/2018 10:17 AM EST) Glucose 78 65 - 99 mg/dl [facility] Urea Nitrogen Blood (BUN) 13 7 - 25 mg/dL [facility] Creatinine 0.79 0.50 - 1.16 mg/dL [facility] Sodium 143 136 - 145 mmo/L [facility] Potassium 4.1 3.5 - 5.3 mmol/L [facility] Chloride 102 98 - 107 mmo/L [facility] Calcium 9.9 8.5 - 10.4 mg/dL [facility] Protein Total (Serum) 7.7 6.0 - 8.3 g/dL [facility] Albumin 4.7 3.5 - 5.2 g/dL [facility] Globulin 3 2 - 4 G/DL [facility] Bilirubin Total 0.29 0.00 - 1.20 mg/dL [facility] Alkaline phosphatase 56 33 - 130 U/L [facility] AST (SGOT) 15 <38 U/L [facility] ALT (SGPT) 13 <47 U/L [facility] Carbon dioxide 30 23 - 33 mmol/L [facility] GFR 81 >60 ml/min [facility] Comment:If the patient is Af rican Afghan, please multiply result by 1.210 10/18/2018 10:1 7 AM EST 10/18/2018 10:17 AM EST Narrative [facility] - 10/18/2018 1:38 PM EST non fasting Patient's primary care provider is: ??N/A Testing performed at: [facility], [address] [place] [address], [address], Pizza Baker: Seth Gutierrez MD Vandana Epps MD LABORATORY Final Result Performing Organization Address [facility] Co de Phone Number [facility] [address] [place] [address] DIRECTOR Seth Gutierrez MD * CBC INCLUDES DIFFERENTIAL AND PLATELET COUNT (10/18/2018 10:17 AM EST) WBC 6.7 3.8 - 10.8 K/uL [facility] Neutrophils # 4.7 1.5 - 7.8 K/uL [facility] Immature Granulocytes # 0.01 0.00 - 0.07 K/uL [facility] Comment:Cells included in IM M GRANS # : Metamyelocytes, Myelocytes and Promyelocytes. Lymphocytes # 1.3 0.9 - 3.9 K/uL [facility] Monocytes # 0.7 0.2 - 1.0 K/uL [facility] Eosinophils # 0.1 0.0 - 0.5 K/uL [facility] Basophils # 0.0 0.0 - 0.2 K/uL [facility] Neutrophils % 69.6 % [facility] Immature Granulocytes % 0.10 % [facility] Comment:Cells included in IM M GRANS % : Metamyelocytes, Myelocytes and Promyelocytes. Lymphocytes % 19.3 % [facility] Monocytes % 9.7 % [facility] Eosinophils % 0.9 % [facility] Basophils % 0.4 % [facility] RBC 4.27 3.80 - 5.10 M/uL [facility] Hemoglobin 13.0 11.7 - 15.5 g/dL [facility] Hematocrit 39.2 35.0 - 45.0 % [facility] MCV 91.8 80.0 - 100.0 fl [facility] MCH 30.4 27.0 - 33.0 pg [facility] MCHC 33.2 32.0 - 36.0 g/dL [facility] RDW 12.5 11.0 - 15.0 % [facility] PLT 273 140 - 400 K/uL [facility] 10/18/2018 10:1 7 AM EST 10/18/2018 10:17 AM EST Narrative [facility] - 10/18/2018 12:25 PM EST non fasting Patient's primary care provider is: ??N/A Testing performed at: [facility], [address] [place] [address], [address], Pizza Baker: Seth Gutierrez MD Vandana Epps MD LAB SAME DAY RESULT Final Resu lt [address] [address] DIRECTOR Seth Gutierrez MD documented in this encounter Visit Diagnoses Diagnosis Weight loss Loss of weight Screening for hypercholesterolemia Screening for lipoid disorders Chest pain, unspecified type documented in this encounter Care Teams Automotive Parts Specialist Relationship Specialty Start Date End Date Vandana Epps MD PCP - General Internal Medicine 07/28/17 10/12/22 Unknown Pcp, Non Rmg PCP - General 10/13/22 documented as of this encounter
--- OUTSIDE RECORDS SUMMARY | 2024-12-25 14:31 | XMS_ITS | Encounter Summary ---
Author Organization [facility] Address [address] [place] [address] Care Team Providers Care Marketing Planner Name Role Phone Brad Solo MD Primary Care Provider [phone] Vandana Epps MD Primary Care Provider [phone] Unknown Pcp, Non Rmg Primary Care Provider Unava ilable Encounter Details Date Type Department Care Team (Late st Contact Info) Description 10/06/2016 Orders Only [facility] RAILWAY TRACTION LINE WORKER [address] [place] [phone] Cintia Gómez NP Social History Tobacco Use Types Packs/Day Years [...] as of this encounter Progress Notes * Bryanna Louis, BEBA - 10/11/2016 8:23 AM ESTQuick Note: To PAN DEVULCANIZER for review, problem list updated, normal letter sent. documented in this encounter Plan of Treatment Upcoming Encounters Date Type Department Care Team (Late st Contact Info) Description 07/08/2025 8:30 AM EDT Office Visit [facility]. Optometry [address] [place] [phone] Agus Jacinto OD [address] [place] [address] *est pt exam, no cl, no dm, 1 year follow up, aodv, *not elig. until 12/23/24, , 12/21* tommie, interp needed, aoir sent te over sent email to [email or web address] documented as of this encounter Procedures * Due to [place] [employer] law, this organization might not be sharing negative HIV tests. Procedure Name Priority Date/Time Associated Diagnosis Comments THINPREP TIS PAP AND HPV MRNA E6/E7 REFLEX HPV 16,18/45 Routine 10/06/2016 4:27 PM EST Encounter for gynecological examination without abnormal finding documented in this encounter Results * Due to [facility] law, this organization might not be sharing negative HIV tests. * THINPREP TIS PAP AND HPV MRNA E6/E7 REFLEX HPV 16,18/45 (10/06/2016 4:27 PM EST) Clinical information none given [facility] Comment:{CLINICAL INFORMATIO N: {[id number]) Date last menstrual period 09/30/16 [facility] Comment:{LMP: {[id number]) Date of previous PAP smear NONE GIVEN [facility] Comment:{PREV. PAP: {[id number]) Date of previous biopsy NONE GIVEN [facility] Comment:{PREV. BX: {[id number]) Specimen source (Cvx/Vag) Cervix [facility] Comment:{SOURCE: {[id number]) Statement of Adequacy (Cvx/Vag) Satisfactory for evaluation. Endocervical/rosario sformation zone component absent. [facility] Comment:{STATEMENT OF ADEQUA CY: {[id number]) Cytology, Pap Smear Negative for intraepithelial lesion or malignancy. [facility] Comment:{INTERPRETATION/RESU LT: {[id number]) Cytology study comment (Cvx/Vag) This Pap test has been evaluated with computer assisted technology. [facility] Comment:{COMMENT: {[id number]) [place] Man (Cvx/Vag) MXD, CT (ASCP) CT screening location: [place] [address] [facility] Comment:{OFFICE CLEANER: { [id number]) HPV MRNA E6/E7 Not Detected Not Detected [facility] Comment: {HPV mRNA E6/E7 {[id number]) This test was performed using the APTIMA HPV Assay ([employer] This assay detects E6/E7 viral messenger RNA (mRNA) from 14 high-risk HPV types (16,18,31,33,35,39,45,51,52,56,58,59,66,68). 10/06/2016 4:27 PM EST 10/07/2016 2:45 AM EST Narrative Resulting Agency Comment [id number] [facility] PAN DEVULCANIZER PATHOLOGY-INTERFACED Final R esult Performing Organization Address City/State/[facility] Co de Phone Number [employer] [address] [place] [address] documented in this encounter Visit Diagnoses Diagnosis Encounter for gynecological examination without abnormal finding Routine gynecological examination documented in this encounter Care Teams Marketing Planner Relationship Specialty Start Date End Date Brad Solo MD PCP - General 12/30/14 07/27/17 Vandana Epps MD PCP - General Internal Medicine 07/28/17 10/12/22 Unknown Pcp, Non Rmg PCP - General 10/13/22 documented as of this encounter
--- OUTSIDE RECORDS SUMMARY | 2024-12-25 14:31 | XMS_ITS | Encounter Summary ---
Author Organization [facility] Address [address] [place] [address] Care Team Providers Care Salon Designer Name Role Phone Vandana Epps MD Primary Care Provider [phone] Unknown Pcp, Non Rmg Primary Care Provider Unava ilable Reason for Visit * Reason Comments E-prescribing Refill Request Encounter Details Date Type Department Care Team ([facility] st Contact Info) Description 06/24/2020 Refill [facility] Adult Medicine [address] [place] [phone] Vandana Epps MD [facility] [address] [facility] [address] [place] [address] E-prescribing Refill Request Social History Tobacco Use [...] encounter Miscellaneous Notes * Telephone Encounter - Shauna Arce - 06/25/2020 9:28 AM EDT Any special requests or concerns? Medication requested/last refill Disp Refills Start End Famotidine (PEPCID) 20 MG tablet 60 tablet 01/2802/28/2020 06/07/2021 Sig - Route: Take one tablet (20 mg total) by mouth 2 (two) times a day - Oral Sent to pharmacy as: Famotidine 20 MG Oral Tablet (PEPCID) Order: [id number] E-Prescribing Status: Receipt confirmed by pharmacy (02/28/2020 ??4:44 PM EDT) Order Providers Faxed/E-prescribed medication renewal request(s) for Matilde Jung 54 y.o. female received from pharmacy. Verified and Confirmed pharmacy for patient. Last CPE with this specialty: 10/23/2019 Last OV with this specialty: 10/23/2019 Next OV: Future Appointments Date Time Provider Department Phone 08/20/20 1:30 PM Eloy Pritchard MD [facility] Pulmonary [address] Pertinent lab results: No labs suggested for any medication orders signed or pended in this encounter. Refresh if any orders changed. Allergies: Patient has no known allergies. BP Readings from Last 1 Encounters: 10/23/19 98/72 Patient Active Problem List Diagnosis Date Noted ??? Postnasal drip 06/23/2017 ??? Perimenopausal disorder-on pop 02/24/2017 ??? Chronic cough 02/18/2017 ??? Non-allergic [...] Insomnia 12/13/2013 ??? Anxiety 12/13/2013 Current Outpatient Medications on File Prior to Visit Medication Sig Dispense Refill ??? Famotidine (PEPCID) 20 MG tablet Take one tablet (20 mg total) by mouth 2 (two) times a day 60 tablet 3 ??? FLUTICASONE PROPIONATE, NASAL, (FLONASE) 50 MCG/ACT nasal spray Administer two sprays into eachnostril 2 (two) times a day Administer two sprays into each nostril 2 ( two) times a day 3 Bottle 0 ??? Vitamin D3 (VITAMIN D-3) 50 MCG (1999 UT) capsule TAKE 1 CAPSULE BY MOUTH EVERY DAY IN THE MORNING 90 capsule 3 ??? Acetaminophen (Mapap Arthritis Pain) 650 MG 8 hr tablet Take one tablet (650 mg total) by mouthevery 8 (eight) hours if needed for mild pain or headaches (or fever-no more than 3 daily) 40 tablet 1 ??? Loratadine-Pseudoephedrine (CLARITIN-D 24 HOUR) 10-240 MG TABLET SR 24 HR 1 TABLET DAILY - takein the morning 90 Tab 3 ??? raNITIdine HCl 300 MG Tab TAKE 1 TABLET BY MOUTH AT BEDTIME 90 Tab 3 ??? FLUoxetine HCl 10 MG Tab 1 daily ??? TraZODone HCl 100 MG Tab 1 tab at bedtime documented in this encounter Plan of Treatment Upcoming Encounters Date Type Department Care Team (Late st Contact Info) Description 07/08/2025 8:30 AM EDT Office Visit [facility]. Optometry [address] [place] [phone] Agus Jacinto, OD [address] [place] [address] *est pt exam, no cl, no dm, 1 year follow up, aodv, *not elig. until 12/23/24, MH, 12/21* tommie, interp needed, aoir sent te over sent email to [email or web address] documented as of this encounter Visit Diagnoses Not on filedocumented in this encounter Care Teams Salon Designer Relationship Specialty Start Date End Date Vandana Epps MD PCP - General Internal Medicine 07/28/17 10/12/22 Unknown Pcp, Non Rmg PCP - General 10/13/22 documented as of this encounter
--- OUTSIDE RECORDS SUMMARY | 2024-12-25 14:31 | XMS_ITS | Encounter Summary ---
Author Organization [facility] Address [address] [place] [address] Care Team Providers Care Product Trainer Name Role Phone Brad Solo MD Primary Care Provider Vandana Epps MD Primary Care Provider [phone] Unknown Pcp, Non Rmg Primary Care Provider Unava ilable Encounter Details Date Type Department Care Team (Late st Contact Info) Description 08/19/2016 Orders Only [facility] Adult Medicine [address] [place] [phone] Brad Solo MD [address] [address] Social History Tobacco Use Types Packs/Day Years [...] Description 07/08/2025 8:30 AM EDT Office Visit [facility]. Optometry [address] [place] [phone] Agus Jacinto, OD [address] [place] [address] *est pt exam, no cl, no dm, 1 year follow up, aodv, *not elig. until 12/23/24, , 12/21* tommie, interp needed, aoir sent te over sent email to [email or web address] documented as of this encounter Procedures * Due to [facility] law, this organization might not be sharing negative HIV tests. Procedure Name Priority Date/Time Associated Diagnosis Comments CBC INCLUDES DIFFERENTIAL AND PLATELET COUNT Routine 08/19/2016 2:08 PM EDT Gastroesophageal reflux disease without esophagitis THYROID STIMULATING HORMONE (TSH) WITH FREE T4 REFLEX, SERUM Routine 08/19/2016 2:08 PM EDT Anxiety VITAMIN D, 25-HYDROXY, TOTAL, IMMUNOASSAY Routine 08/19/2016 2:08 PM EDT Vitamin D deficiency LIPID PANEL WITH REFLEX TO DIRECT LDL Routine 08/19/2016 2:08 PM EDT Screening cholesterol level COMPREHENSIVE METABOLIC PANEL WITH GFR Routine 08/19/2016 2:08 PM EDT Gastroesophageal reflux disease without esophagitis documented in this encounter Results * Due to [place] state law, this organization might not be sharing negative HIV tests. * THYROID STIMULATING HORMONE (TSH) WITH FREE T4 REFLEX, SERUM (08/19/2016 2:08 PM EDT) TSH (Thyrotropin) 2.69 0.40 - 4.50 uIU/ml [facility] 08/19/2016 2:08 PM EDT 08/19/2016 2:08 PM EDT Narrative [facility] - 08/19/2016 5:09 PM EDT not fasting Patient's primary care provider is: ??N/A Testing performed at: [facility], [address] [place] [address], [address], Soil Conservationist: Vikas Leung M.D. us Brad Solo MD LABORATORY Final Result [address] [address] DIRECTOR VIKAS LEUNG M.D. * VITAMIN D, 25-HYDROXY, TOTAL, IMMUNOASSAY (08/19/2016 2:08 PM EDT) VIT D, 25-OH, TOTAL 52 >29 ng/mL [facility] Comment: Vitamin D Status ??25-OH Vitamin D: Deficiency: ? <20 ng/mL Insufficiency: ? 20-29 ng/mL Optimal: ?> or = 30 ng/mL 08/19/2016 2:08 PM EDT 08/19/2016 2:08 PM EDT Narrative [facility] - 08/19/2016 5:09 PM EDT not fasting Patient's primary care provider is: ??N/A Testing performed at: [facility], [address] [place] [address], [address], Soil Conservationist: Vikas Leung M.D. Brad Solo MD LABORATORY Final Result [address] [address] DIRECTOR VIKAS LEUNG M.D. * (ABNORMAL) LIPID PANEL WITH REFLEX TO DIRECT LDL (08/19/2016 2:08 PM EDT) Cholesterol 215(H) <200 mg/dL [facility] Triglyceride 243(H) <150 mg/dL [facility] HDL Cholesterol 36(L) >40 mg/dL [facility] Comment: NCEP GUIDELINES Desireable >60 mg/dL Borderline 40-59 mg/dL ?? Undesirable <40 mg/dL LDL Cholesterol 130(H) <130 mg/dL [facility] CHOL/HDL Ratio 6(H) 0 - 5 CALC [facility] ANT [facility] 08/19/2016 2:08 PM EDT 08/19/2016 2:08 PM EDT Narrative [facility] - 08/19/2016 5:09 PM EDT not fasting Patient's primary care provider is: ??N/A Testing performed at: [facility], [address] [place] [address], [address], Soil Conservationist: Vikas Leung M.D. us Brad Solo MD LABORATORY Final Result [address] [address] DIRECTOR VIKAS LEUNG M.D. * (ABNORMAL) COMPREHENSIVE METABOLIC PANEL WITH GFR (08/19/2016 2:08 PM EDT) Glucose 106(H) 65 - 99 mg/dl [facility] Urea Nitrogen Blood (BUN) 17 7 - 25 mg/dL [facility] Creatinine 0.71 0.50 - 1.16 mg/dL [facility] Sodium 141 136 - 145 mmo/L [facility] Potassium 5.2 3.5 - 5.3 mmol/L [facility] Chloride 103 98 - 107 mmo/L [facility] Calcium 9.9 8.5 - 10.4 mg/dL [facility] Protein Total (Serum) 7.3 6.0 - 8.3 g/dL [facility] Albumin 4.2 3.5 - 5.2 g/dL [facility] Globulin 3 2 - 4 G/DL [facility] Bilirubin Total 0.21 0.20 - 1.50 mg/dL [facility] Alkaline phosphatase 64 33 - 130 U/L [facility] AST (SGOT) 17 <38 U/L [facility] ALT (SGPT) 16 <47 U/L [facility] Carbon dioxide 29 23 - 33 mmol/L [facility] GFR 92 >60 ml/min [facility] Comment:If the patient is Af rican [place], please multiply result by 1.210 08/19/2016 2:08 PM EDT 08/19/2016 2:08 PM EDT Narrative [facility] - 08/19/2016 5:09 PM EDT not fasting Patient's primary care provider is: ??N/A Testing performed at: [facility], [address] [place] [address], [address], Soil Conservationist: Vikas Leung M.D. Brad Solo MD LABORATORY Final Result [address] [address] DIRECTOR VIKAS LEUNG M.D. * CBC INCLUDES DIFFERENTIAL AND PLATELET COUNT (08/19/2016 2:08 PM EDT) WBC 6.4 3.8 - 10.8 K/uL [facility] Neutrophils # 4.3 1.5 - 7.8 K/uL [facility] Immature Granulocytes # 0.01 0.00 - 0.07 K/uL [facility] Comment:Cells included in IM M GRANS # : Metamyelocytes, Myelocytes and Promyelocytes. Lymphocytes # 1.5 0.9 - 3.9 K/uL [facility] Monocytes # 0.5 0.2 - 1.0 K/uL [facility] Eosinophils # 0.1 0.0 - 0.5 K/uL [facility] Basophils # 0.0 0.0 - 0.2 K/uL [facility] Neutrophils % 66.5 % [facility] Immature Granulocytes % 0.20 % [facility] Comment:Cells included in IM M GRANS % : Metamyelocytes, Myelocytes and Promyelocytes. Lymphocytes % 23.3 % [facility] Monocytes % 8.3 % [facility] Eosinophils % 1.4 % [facility] Basophils % 0.3 % [facility] RBC 4.06 3.80 - 5.10 M/uL [facility] Hemoglobin 12.0 11.7 - 15.5 g/dL [facility] Hematocrit 36.2 35.0 - 45.0 % [facility] MCV 89.2 80.0 - 100.0 fl [facility] MCH 29.6 27.0 - 33.0 pg [facility] MCHC 33.1 32.0 - 36.0 g/dL [facility] RDW 12.4 11.0 - 15.0 % [facility] PLT 262 140 - 400 K/uL [facility] 08/19/2016 2:08 PM EDT 08/19/2016 2:08 PM EDT Narrative [facility] - 08/19/2016 2:48 PM EDT not fasting Patient's primary care provider is: ??N/A Testing performed at: [facility], [address] [place] [address], [address], Soil Conservationist: Vikas Leung M.D. us Brad Solo MD LAB SAME DAY RESULT Final Resu lt [address] [address] DIRECTOR VIKAS LEUNG M.D. documented in this encounter Visit Diagnoses Diagnosis Gastroesophageal reflux disease without esophagitis Esophageal reflux Screening cholesterol level Screening for lipoid disorders Vitamin D deficiency Anxiety Anxiety state, unspecified documented in this encounter Care Teams Product Trainer Relationship Specialty Start Date End Date Brad Solo MD PCP - General 12/30/14 07/27/17 Vandana Epps MD PCP - General Internal Medicine 07/28/17 10/12/22 Unknown Pcp, Non Rmg PCP - General 10/13/22 documented as of this encounter
--- OUTSIDE RECORDS SUMMARY | 2024-12-25 14:31 | XMS_ITS | Encounter Summary ---
Author Organization [facility] Address [address] [place] [address] Care Team Providers Care Warp Spooler Name Role Phone Brad Solo MD Primary Care Provider [phone] Vandana Epps MD Primary Care Provider [phone] Unknown Pcp, Non Rmg Primary Care Provider Unava ilable Encounter Details Date Type Department Care Team (Late st Contact Info) Description 10/28/2015 Orders Only [facility] [address] [place] [phone] John Oviedo MD [facility] Allergy, Asthma & Immunology [address] [place] [phone] Social History Tobacco Use Types Packs/Day Years [...] Progress Notes * John Oviedo MD - 10/29/2015 5:30 PM ESTQuick Note: NO h pylori documented in this encounter Plan of Treatment Upcoming Encounters Date Type Department Care Team (Late st Contact Info) Description 07/08/2025 8:30 AM EDT Office Visit [facility] Optometry [address] [place] [phone] Agus Jacinto, OD [address] [place] [address] *est pt exam, no cl, no dm, 1 year follow up, aodv, *not elig. until 12/23/24, , 12/21* tommie, interp needed, aoir sent te over sent email to [email or web address] documented as of this encounter Procedures * Due to [facility] law, this organization might not be sharing negative HIV tests. Procedure Name Priority Date/Time Associated Diagnosis Comments HELICOBACTER PYLORI UREA BREATH TEST (UBIT-(R)) Routine 10/28/2015 8:57 AM EST Gastroesophageal reflux disease without esophagitis documented in this encounter Results * Due to [place] [employer] law, this organization might not be sharing negative HIV tests. * HELICOBACTER PYLORI UREA BREATH TEST (UBIT-(R)) (10/28/2015 8:57 AM EST) Urea Breath Test, Infra-Red (Ubit) NOT DETECTED NOT DETECTED [facility] Comment: {HELICOBACTER PYLORI, UREA BREATH TEST {[id number]) Antimicrobials, proton pump inhibitors, and bismuth preparations are known to suppress H. pylori, and ingestion of these prior to H. pylori diagnostic testing may lead to false negative results. If clinically indicated, the test may be repeated on a new specimen obtained two weeks after discontinuing treatment. 10/28/2015 8:57 AM EST 10/28/2015 2:27 PM EST Narrative Resulting Agency Comment [id number] us John Oviedo MD LABORATORY Final Resu lt [facility] [address] [place] [address] documented in this encounter Visit Diagnoses Diagnosis Gastroesophageal reflux disease without esophagitis Esophageal reflux documented in this encounter Care Teams Warp Spooler Relationship Specialty Start Date End Date Brad Solo MD PCP - General 12/30/14 07/27/17 Vandana Epps MD PCP - General Internal Medicine 07/28/17 10/12/22 Unknown Pcp, Non Rmg PCP - General 10/13/22 documented as of this encounter
--- OUTSIDE RECORDS SUMMARY | 2024-12-25 14:31 | XMS_ITS | Encounter Summary ---
Author Organization [facility] Address [address] [place] [address] Care Team Providers Care Rn Acls Name Role Phone Vandana Epps MD Primary Care Provider [phone] Unknown Pcp, Non Rmg Primary Care Provider Unava ilable Reason for Visit * Reason Comments Shoulder Pain L shoulder pain x 4 months and into elbow Encounter Details Date Type Department Care Team (Late st Contact Info) Description 12/13/2018 Orders Only [facility] Orthopedic Surgery [address] [place] [address] Car Rodriguez N, DO [address] [place] [address] Social History Tobacco Use Types Packs/Day Years [...] 07/08/2025 8:30 AM EDT Office Visit [facility]. Optometry [address] [place] [phone] Agus Jacinto, OD [address] [place] [address] *est pt exam, no cl, no dm, 1 year follow up, aodv, *not elig. until 12/23/24, MH, 12/21* tomime, interp needed, aoir sent te over sent email to [email or web address] documented as of this encounter Results * Due to [place] state law, this organization might not be sharing negative HIV tests. * XRAY SHOULDER COMPLETE MIN 2 VWS - LEFT (DX: SHOULDER PAIN *NO INJURY* M25.512/ 719.41) FC (12/13/2018 1:01 PM EST) Anatomical Region Laterality Modality UPPER EXTREMITY Radiographic Betsy ging 12/13/2018 1:27 PM EST Narrative 12/13/2018 1:27 PM EST EXAM: X-ray left shoulder Comparison: CR ??- XRAY CHEST 2 VIEWS PA ?? - 10/18/2018 10:26 AM EST FINDINGS: 3 views of the left shoulder demonstrate subchondral cyst within the greater tuberosity. ??Humeral head is anatomically positioned within the glenoid. ?? Acromioclavicular joint is unremarkable. ??Visualized left lung is clear. IMPRESSION: ? Subchondral cysts noted within the greater tuberosity suggesting possible rotator cuff pathology. Procedure Note Maureen Hernandez MD - 12/13/2018 EXAM: X-ray left shoulder Comparison: CR - XRAY CHEST 2 VIEWS PA - 10/18/2018 10:26 AM EST FINDINGS: 3 views of the left shoulder demonstrate subchondral cyst within thegreater tuberosity. Humeral head is anatomically positioned within the glenoid. Acromioclavicular joint is unremarkable. Visualized left lung is clear. IMPRESSION: Subchondral cysts noted within the greater tuberosity suggesting possible rotator cuff pathology. us Car Rodriguez DO IMG XRAY NO CONTRAST ORDERAB LES Final Result documented in this encounter Visit Diagnoses Diagnosis Left shoulder pain, unspecified chronicity Left shoulder pain, unspecified chronicity documented in this encounter Care Teams Rn Acls Relationship Specialty Start Date End Date Vandana Epps MD PCP - General Internal Medicine 07/28/17 10/12/22 Unknown Pcp, Non Rmg PCP - General 10/13/22 documented as of this encounter
--- OUTSIDE RECORDS SUMMARY | 2024-12-25 14:31 | XMS_ITS | Data Portability ---
Author Organization [place] [facility] Address [address] [place] [id number] Care Team Providers Care Cartographic Engineer Name Role Phone AJITHTRISTIAN Primary Care Provider Assessment Encounter Date Assessment Date Assessment LastModified by Organization Details LastModified Time 07/02/2019 07/02/2019 Time On Scene with Patient: 00:29:01 53 year-old female with history of mood disorder, anxiety, deaf and mute who lives in a assisted. The workers in the home called to evaluate patient for nausea and vomiting. Pt had nausea and vomiting yesterday and this morning. Pt has been having epigastric burning, and discomfort. She denies fevers but feels chills. There have been no further episodes of vomiting. since this morning. She does not show any shortness of breath, fevers per staff. Pt has difficulties communicating everything as she has mental delays as well as being deaf and mute . Staff appear to know her well and feel patient has been acting her norm at this time. ON physical exam a well-appearing female ambulating without difficulty. There are limitations to exam as patient is only learning sign now, with mostly north [place] background. She is afebrile with stable vital signs. Her skin is pink warm and dry. HEr resp are easy. BBS clear, aBD: soft and non tender. there are BS x 4 NO masses palpated. DDX SBO, ACS, GI distress. Pt appears well at this time. She is ambulating without difficulty. She is tolerating PO soup and drin without any symptoms. She was given zofran to prevent nausea. A prescription was sent for PRN nausea as well Pt was in good spirits at time of completion. Discussed reasons to return call or to see further evaluation. Not available 07/02/2019 18:40:22 09/16/2020 09/16/2020 Overview/History : Patient complains of left ear pain beginning last Tuesday. Per staff at assisted, she consistently uses q-tips to clean her ears. Patient complains today of exacerbation in left ear pain. Exam: Left ear canal erythymous with yellow exudate. Inner ear is pink and inflamed. DDx considered, but not limited to: Acute left ear otitis media likely given pain, erythema, yellow exudate and low grade fever of 99.0 External Otitis media unlikely given findings of inner ear exam or erythema and exudate Otitis Media with effusion unlikely exudate is yellow in color Work up/Results: VSS with exception of low grade fever. Visualization of left ear canal consistent with Acute Otitis Media. Plan/Discussion: Tylenol and Motrin per box instructions scheduled for pain as necessary. Azithromycin antibiotics initiated this visit 500 mg po given. Patient to follow with Azithromycin 250 mg 1 x daily x days. Complete entire course. Increase fluids and follow up with PCP. Take Azithromycin in the evening, do not combine with any other medications. Do not use any q tips or put any items in ears. Discharge instructions reviewed by staff. If fever develops, nausea, vomiting, diarrhea, no improvement in symptoms, contact pcp, report to ED. In order to obtain further information and compare any laboratory results/values, I have accessed old patient records. This information was pertinent in my medical decision making today. Not available 09/16/2020 19:43:05 Plan of Treatment Reminders Order Date Submit Date Provider Last Modified By Organization Details Last Modified Time Details Appointments None recorded. Lab None recorded. Referral None recorded. Procedures None recorded. Surgeries None recorded. Imaging None recorded. Medication Orders Zofran ODT 4 mg disintegra ting tablet 2018 019 Not available 0 18:55:04 Zofran 4 mg tablet 2018 019 [id number], [address] [place], [address], 0 18:55:00 azithromyc in 250 mg tablet 2019 020 [id number], [address] [place], [address], 0 19:20:21 azithromyc in 250 mg tablet 2019 020 [facility], [address] [place] [address], [id number], 0 19:20:00 Patient TargetsNo targets recorded. Patient Instructions Encounter Date Encounter Id Patient Instructions Last Modified By Organization Details Last Modified Time 07/02/2019 [id number] [facility] came to the assisted for evaluation of nausea and vomiting that Matilde had last night and early this morning. She has been tolerating PO fluids and food since. The staff wanted to make sure she was okay. Pt complains of chest burning and throat burning. We did an EKG and it was unremarkable. She appears to be well and is eating without difficulty. We did give her zofran for any further nausea. Please follow up with her PCP as needed. IF she develops any further symptoms, please recall [facility] or go to urgent care, or go to the ED if you are concerned. We sent a prescription to the pharmacy for her for zofran if needed. [facility]. You were seen today for abdominal pain, nausea, vomiting and/or diarrhea. Medications may have been administered and lab tests may have been performed. At this time, we do not see evidence of a serious surgical or infectious cause of your symptoms. However, lab tests and an evaluation cannot always exclude appendicitis or other serious causes of abdominal pain. Please see a medical professional in 12-24 hours to be re-examined. Seek immediate medical attention for increased pain, vomiting or fever. If you develop any new or worsening symptoms and need after hours care, please go to nearest ER and/or call 911. If you have additional concerns or develop a change in your condition between 8am-10pm, please call [facility] at [phone] to help navigate your care. Thank you for your visit with [facility] today. We cannot always find the exact cause of your symptoms during your initial visit. Please follow up with your primary care provider or specialist to be rechecked or seek medical attention if your symptoms do not go away or get worse. If you develop any new or worsening symptoms and need after hours care, please go to nearest ER and/or call 911. If you have additional concerns or develop a change in your condition between 8am-10pm, please call [facility] at [phone] to help navigate your care. Not available 07/02/2019 13:01:28 09/16/2020 [id number] ear infection (otitis media): care instructions Not available 09/16/2020 19:20:00 [facility] you [facility] yo ur [facility]. We cannot always find the exact cause of your symptoms during your initial visit. Please follow up with your primary care provider or specialist within 12-24 hours within 24-48 hours within 2-3 days to be rechecked or seek medical attention if your symptoms do not go away or get worse. If you develop any new or worsening symptoms and need after hours care, please go to nearest ER and/or call 911. If you have additional concerns or develop a change in your condition between 8am-10pm, please call [facility] at [phone] to help navigate your care. Not available 09/16/2020 19:17:11 Reason for Referral None Reported. Medical Equipment None Reported. Allergies No known drug allergies Medications Name Sig Start Date Stop Date Status Note LastModified by Organization Details LastModified Time azithromyci n 250 mg tablet TAKE 2 TABLETS BY MOUTH TODAY, THEN TAKE 1 TABLET DAILY FOR 4 DAYS active Not Available Not Available No t Available ranitidine 300 mg tablet TAKE 1 TABLET BY MOUTH EVERYDAY AT BEDTIME active Not Available Not Available No t Available fluoxetine 10 mg tablet TAKE 1 TABLET BY MOUTH DAILY AT 8AM. active Not Available Not Available No t Available Zofran 4 mg tablet Take 1 tablet every 6 hours by oral route as needed. 09/16 completed Not Available Not Available Not Available famotidine 20 mg tablet TAKE 1 TABLET BY MOUTH TWICE DAILY active Not Available Not Available No t Available trazodone 100 mg tablet TAKE 1 TABLET BY MOUTH NIGHTLY AT 8PM +/- 2 HOUR. active Not Available Not Available No t Available Zofran ODT 4 mg disintegrat ing tablet one ODT administe red on scene. Time administe red: 1300: 09/16 completed Not Available Not Available Not Available fluoxetine 10 mg capsule TAKE 1 CAPSULE BY MOUTH EVERY MORNING active Not Available Not Available No t Available norethindro ne (contracept haven) 0.35 mg tablet TAKE 1 TABLET BY MOUTH EVERY DAY active Not Available Not Available No t Available fluticasone propionate 50 mcg/actuati on nasal spray,suspe nsion INHALE 2 SPRAYS IN EACH NOSTRIL TWICE DAILY active Not Available Not Available No t Available Mapap Arthritis Pain 650 mg tablet,exte nded release TAKE 1 TABLET BY MOUTH EVERY 8 HOURS NEEDED FOR PAIN/HEAD ACHES/FEV ERMAX 3 TABS DAILY active Not Available Not Available No t Available Allergy Relief and Nasal Decongestan t 10 mg-240 mg tablet,exte nded rel TAKE 1 TABLET BY MOUTH EVERY MORNING active Not Available Not Available No t Available Vitamin D active Not Available Not Eunice ilable Not Available Prozac active Not Available Not Availa ble Not Available trazodone active Not Available Not Eunice ilable Not Available Ranitidine active Not Available Not Av ailable Not Available Vitamin D3 50 mcg (2,000 unit) capsule TAKE 1 CAPSULE BY MOUTH EVERY DAY IN THE MORNING active Not Available Not Available No t Available Flonase Allergy Relief active Not Available Not Available Not Available Flucelvax Quad [id number] (PF) 60 mcg (15 mcg x 4)/0.5 mL IM syringe [facility]ARMACY [facility] active Not Available Not Available No t Available Vitals Date Recorded Oxygen saturation Oxygen saturation in Arterial blood by Pulse oximetry Heart rate Body temperature Respiratory rate Systolic blood pressure Diastolic blood pressure Provider Name and Address Organization Details Last Updated DateTime 0 97 % 97 % 76 /min 99 [degF] 20 /min 90 mm[Hg] 58 mm[Hg] Not Available [facility] 0 18:57:10 Date Recorded Heart rate Body temperature Oxygen saturation Oxygen saturation in Arterial blood by Pulse oximetry Respiratory rate Systolic blood pressure Diastolic blood pressure Provider Name and Address Organization Details Last Updated DateTime 9 83 /min 98.6 [degF] 97 % 97 % 16 /min 114 mm[Hg] 70 mm[Hg] Not Available [facility] 9 12:40:16 Social History Question Answer Notes LastModified by Organizat ion Details LastModified Time Tobacco Smoking Status Never Smoker SUSAN STEPHENS NP [address] [place], [address], [place] [facility] 07/02/2019 12:49:29 What Was The Date Of Your Most Recent Tobacco Screening? 07/02/2019 Information not available 07/03/2019 Sex: Unknown Functional Status None recorded. Mental Status None recorded. Family History Nothing Reported. Medical History Condition Response Diabetes COPD N Asthma N Gynecological HistoryNo gynecological history recorded. Obstetrics History GPAL:G 0 P 0 0 0 0 Past Encounters Encounter ID Performer Location Encounter Start Date Encounter Closed Date Diagnosis/Indication Diagnosis SNOMED-CT Code Diagnosis ICD10 Code Diagnosis Note [id number] SUSAN STEPHENS NP [facility] [address] [place] [address] 07/02/2019 12:39:48 07/03/2019 10:45:30 Nausea and vomiting 02319329 R11.2 Acute vomiting 33554577 R11.10 [id number] Mary San NP [facility] [address] [place] [address] 09/16/2020 18:53:43 09/17/2020 21:28:45 Acute left otitis media 799907130 H66.92 Acute otitis media 83131 03 H65.02 Health Concerns Section Related Observation LastModified by Organization Detai ls LastModified Time None Recorded Concern Status LastModified by Organization Details LastModified Time None Recorded Advance Directives Directive None Recorded Payers Encounter Date Sequence Insurance Name Policy Number Policy Ott Covered Member ID Ott Member ID Guarantor Name 07/02/2019 2 [place] Matilde Ellsworth [id number] Steph Ellsworth 07/02/2019 1 [place] Matilde Ellsworth [id number] Steph Ellsworth 09/16/2020 1 [place] Matilde Ellsworth [place] [id number] Steph Ellsworth 09/16/2020 2 [place] Matilde Ellsworth [place] [id number] Steph Ellsworth Notes Date Note Type Note Provider Name and Address Organization Details Recorded Time 07/02/2019 text/html 53 year-old fema le with history of mood disorder, anxiety, deaf and mute who lives in a assisted. The workers in the home called to evaluate patient for nausea and vomiting. Pt had nausea and vomiting yesterday and this morning. Pt has been having epigastric burning, and discomfort. She denies fevers but feels chills. There have been no further episodes of vomiting. since this morning.She does not show any shortness of breath, fevers per staff. Pt has difficulties communicating everything as she has mental delays as well as being deaf and mute . Staff appear to know her well and feel patient has been acting her norm at this time. SUSAN STEPHENS, ESTELA [address], [place], [address], [place] [facility] 07/02/2019 18:40:27 09/16/2020 text/html Patient is a 54 year old female who lives in a assisted. She is alert and congnicent. She is deaf and mute nd signs primarily to communicate. Patient expresses left ear pain since this past Tuesday. Staff has asked patient to avoid use of q-tips in her ears. Patient medical history significant for mood disorder, anxiety, insomnia, Mary Sayda San NP [address], [place], [address], [place] [facility] 09/16/2020 22:03:07 OBGyn Episode No OBEpisode recorded.
--- OUTSIDE RECORDS SUMMARY | 2024-12-25 14:31 | XMS_ITS | Encounter Summary ---
Author Organization [facility] Address [address] [place] [address] Care Team Providers Care Marketing Intern Name Role Phone Vandana Epps MD Primary Care Provider [phone] Unknown Pcp, Non Rmg Primary Care Provider Unava ilable Reason for Visit * Reason Comments E-prescribing Refill Request Encounter Details Date Type Department Care Team ([facility] st Contact Info) Description 09/03/2020 Refill [facility] [address] [place] [address] Vandana Epps MD [facility] [address] [facility] [address] [place] [address] E-prescribing Refill Request Social History [...] encounter Miscellaneous Notes * Telephone Encounter - Trish Pisano - 09/04/2020 12:01 PM EDT Any special requests or concerns? Medication was last filled on FLUTICASONE PROPIONATE, NASAL, (FLONASE) 50 MCG/ACT nasal spray 3 Bottle 0/0 02/12/2020 Sig - Route: Administer two sprays into each nostril 2 (two) times a day Administer two sprays intoeach nostril 2 ( two) times a day - Each Nostril Sent to pharmacy as: Fluticasone Propionate 50 MCG/ACT Nasal Suspension (FLONASE) Order: [id number] . Faxed/E-prescribed medication renewal request(s) for Matilde Jung 54 y.o. female received from pharmacy. Verified and Confirmed pharmacy for patient. Last CPE with this specialty: 10/23/2019 Last OV with this specialty: 10/23/2019 Next OV: Future Appointments Date Time Provider Department Phone 09/10/20 1:15 PM CARMEL Gutierrez [facility] [id number] 02/11/21 1:20 PM Alexandra Cancino OD [facility] [phone] Pertinent lab results: No labs suggested for [...] ??? Vitamin D3 (VITAMIN D-3) 50 MCG (2000 [...] Description 07/08/2025 8:30 AM EDT Office Visit [facility]. Optometry [address] [place] [address] Agus Jacinto, OD [address] [place] [address] *est pt exam, no cl, no dm, 1 year follow up, aodv, *not elig. until 12/23/24, MH, 12/21* tommie, interp needed, aoir sent te over sent email to [email or web address] documented as of this encounter Visit Diagnoses Diagnosis Postnasal drip Chronic cough Cough documented in this encounter Care Teams Marketing Intern Relationship Specialty Start Date End Date Vandana Epps MD PCP - General Internal Medicine 07/28/17 10/12/22 Unknown Pcp, Non Rmg PCP - General 10/13/22 documented as of this encounter
--- OUTSIDE RECORDS SUMMARY | 2024-12-25 14:31 | XMS_ITS | Encounter Summary ---
Author Organization [facility] Address [address] [place] [address] Care Team Providers Care Food Mixer Assembler Name Role Phone Vandana Epps MD Primary Care Provider [phone] Unknown Pcp, Non [facility]mg Primary Care Provider Unava ilable Reason for Visit * Reason Comments E-prescribing Refill Request Encounter Details Date Type Department Care Team ([facility] st Contact Info) Description 08/22/2019 Refill [facility] [address] [place] [address] Vandana Epps MD [facility] [address] [facility] [address] [place] [address] E-prescribing Refill Request Social History [...] encounter Miscellaneous Notes * Telephone Encounter - Eliseo Fernandez - 08/23/2019 8:54 AM EDT Any special requests or concerns? Nasal spray due around 09/21/19. Faxed/E-prescribed medication renewal request(s) for Matilde Jung 53 y.o. female received from pharmacy. Verified and Confirmed pharmacy for patient. Last CPE with this specialty: 10/18/2018 Last OV with this specialty: 06/13/2019 Next OV: Future Appointments Date Time Provider Department Phone 10/23/2019 1:00 PM Vandana Epps MD [facility] [phone] 10/23/2019 2:00 PM Jory Womack MD [facility] DIDACTIC INSTRUCTOR [phone] Pertinent lab results: No labs suggested for any medication orders signed or pended in this encounter. Refresh if any orders changed. Allergies: Patient has no known allergies. BP Readings from Last 1 Encounters: 06/13/19 (!) 96/59 Patient Active Problem List Diagnosis Date Noted [...] to Visit Medication Sig Dispense Refill ??? Cholecalciferol (VITAMIN D3) 2000 units Cap TAKE 1 CAPSULE BY MOUTH EVERY DAY IN THE MORNING 90Cap 1 ??? FLUTICASONE PROPIONATE, NASAL, 50 MCG/ACT Suspension INHALE 2 SPRAYS IN EACH NOSTRIL TWICE A DAY 3 Inhaler 1 ??? Ibuprofen 600 MG Tab 1 tab po q8 hr with food X 10 days, stop if having any stomach discomfort 30 Tab 0 ??? Acetaminophen (RA ACETAMINOPHEN) 650 MG Tab CR Take 1 tablet by mouth every 4 hours as needed Mild pain, headache or fever over 100 degrees Not to exceed 3 doses in 24 period 60 Tab 0 ??? Loratadine-Pseudoephedrine (CLARITIN-D 24 HOUR) 10-240 MG TABLET SR 24 HR 1 TABLET DAILY - takein the morning 30 Tab 11 ??? RaNITidine HCl 300 MG Tab TAKE 1 TABLET BY MOUTH AT BEDTIME 90 Tab 3 ??? Norethindrone, Contraceptive, 0.35 MG Tab 1 TABLET DAILY 28 Tab 11 ??? FLUoxetine HCl 10 MG Tab 1 TABLET TWICE DAILY ??? TraZODone HCl 100 MG Tab 1 tab at bedtime documented in this encounter Plan of Treatment Upcoming Encounters Date Type Department Care Team (Late st Contact Info) Description 07/08/2025 8:30 AM EDT Office Visit [facility]. Optometry [address] [place] [address] Agus Jacinto, OD [address] [place] [address] *est pt exam, no cl, no dm, 1 year follow up, aodv, *not elig. until 12/23/24, , 12/21* tommie, interp needed, aoir sent te over sent email to [email or web address] documented as of this encounter Visit Diagnoses Diagnosis Postnasal drip Chronic cough Cough documented in this encounter Care Teams Food Mixer Assembler Relationship Specialty Start Date End Date Vandana Epps MD PCP - General Internal Medicine 07/28/17 10/12/22 Unknown Pcp, Non Rmg PCP - General 10/13/22 documented as of this encounter
--- OUTSIDE RECORDS SUMMARY | 2024-12-25 14:31 | XMS_ITS | Continuity of Care Document ---
Author Organization [facility] Address [address] [place] [address] Care Team Providers Care [employer] Agent Name Role Phone Unknown Pcp, Non Rmg Primary Care Provider Unava ilable Encounters Date Type Department Care Team Description 11/19/[address] [facility] [address] [place] [phone] Agus Jacinto, OD E-prescribing Refill Request 07/04/2024 8:30 AM EDT Office Visit [facility] [address] [place] [phone] Agus Jacinto, OD History of retinal detachment 04/25/[address] [facility] Visual Services [address] [place] [phone] Alexandra Cancino, OD Refill Request 04/10/[address] [facility] [address] [place] [address] [phone] Agus Jacinto, OD Appointment 01/12/[address] [facility] [address] [place] [address] [phone] Alexandra Cancino, OD E-prescribing Refill Request 12/22/2022 8:00 AM EST Office Visit [facility] Visual Services [address] [place] [phone] Alexandra Cancino, OD Encounter for ophthalmic examination and evaluation (Primary Dx); Presbyopia; History of retinal detachment 06/22/[address] [facility] [address] [place] [address] Margaret Meza Tech Medications 09/29/2021 Refill [facility] Services [address] [place] [phone] Alexandra Cancino, OD E-prescribing Refill Request 04/22/2021 Travel 04/22/2021 1:20 PM EDT Office Visit [address] [phone] Alexandra Cancino, OD Encounter for ophthalmic examination and evaluation (Primary Dx); Presbyopia; History of retinal detachment; Aphakia, right 12/03/2020 Travel 12/03/2020 1:45 PM EST Office Visit [facility] Pulmonary [address] [place] [address] [address] [place] [address] Eloy Pritchard MD Chronic cough (Primary Dx); Postnasal drip; Hiatal hernia; Non-allergic rhinitis 10/20/[address] [facility] Adult Medicine [address] [place] [phone] Vandana Epps MD E-prescribing Refill Request 09/29/[address] [phone] Alexandra Cancino, OD Eye Problem 09/16/2020 Refill [facility] Medicine [address] [place] [phone] Vandana Epps MD E-prescribing Refill Request 09/13/2020 Minor Procedure/Test [facility] [address] [place] [address] [facility], Unknown Provider 09/03/2020 Refill [facility] Medicine [address] [place] [phone] Vandana Epps MD E-prescribing Refill Request 06/24/2020 Refill [facility] Medicine [address] [place] [phone] Vandana Epsp MD E-prescribing Refill Request 04/30/2020 [facility] Adult Medicine [address] [place] [phone] Vandana Epps MD 04/16/2020 Travel 04/16/2020 9:15 AM EDT Office Visit [facility] Pulmonary [address] [place] [address] Eloy Pritchard MD Chronic cough (Primary Dx); Postnasal drip; Hiatal hernia; Gastroesophageal reflux disease, esophagitis presence not specified 04/15/2020 Letter/Form [address] [address] Kadeem Steele MD 03/21/2020 Travel 03/05/2020 Travel 02/28/[address] [address] Vandana Epps MD Prescription Assistance 02/12/2020 Travel 02/11/[address] [address] Vandana Epps MD Error 02/11/[address] [address] Vandana Epps MD Refill Request ; Refill Request 02/09/[address] [address] Vandana Epps MD E-prescribing Refill Request 10/23/2019 Orders Only [address] [address] Vandana Epps MD 10/23/2019 1:00 PM EST CPE - Comprehensive Physical Exam [address] [address] Vandana Epps MD Routine history and physical examination of adult (Primary Dx); Screening for hyperlipidemia; Weight loss; Postnasal drip; Chronic cough; Gastroesophageal reflux disease, esophagitis presence not specified; Well adult exam 10/23/2019 2:00 PM EST Office Visit [facility] CHARGE WEIGHER [address] [place] [phone] Diane Blanton MD Perimenopausal disorder (Primary Dx); Screening breast examination 10/18/2019 8:45 AM EST Consult (Initial) [facility] Pulmonary [address] [place] [phone] Eloy Pritchard MD Cough (Primary Dx); Chronic cough; Postnasal drip; Non-allergic rhinitis; Hiatal hernia 10/17/2019 1:30 PM EST Radiology [facility] Xray [address] [place] [address] 10/16/[address] [phone] Vandana Epps MD Other 09/12/2019 Minor Procedure/Test [facility] [address] [place] [address] [facility], Unknown Provider 09/12/2019 10:30 AM EDT Office Visit [address] [phone] Vandana Epps MD Cough (Primary Dx); Need for vaccination; Need for immunization against influenza 08/27/[address] [phone] Vandana Epps MD Cough 08/22/[address] [phone] Vandana Epps MD E-prescribing Refill Request 08/04/[address] [phone] Vandana Epps MD E-prescribing Refill Request 06/14/[address] [phone] Vandana Epps MD Results 06/13/2019 1:30 PM EDT Office Visit [address] [phone] Vandana Epps MD Pharyngitis, unspecified etiology (Primary Dx); Cough 03/21/[address] [address] Vandana Epps MD E-prescribing Refill Request 02/26/2019 Consult (Initial) [facility]HAB[facility]ATION UNSPEC Provider, Unknown 02/14/[address] [address] Vandana Epps MD 02/13/[address] [address] Vandana Epps MD E-prescribing Refill Request 02/08/2019 10:00 AM EDT Office Visit [facility] Visual Services [address] [place] [phone] Hiedy Pritchard, OD Bilateral deafness; History of retinal detachment; Encounter for ophthalmic examination and evaluation; Disorder of refraction 02/05/[address] [address] Vandana Epps MD 01/18/2019 Consult (Initial) REHABILITATION UNSPEC Provider, Unknown 12/26/[address] [address] Vandana Epps MD Other 12/26/2018 12:30 PM EST Radiology [facility] Xray [address] [place] [address] Neck pain 12/26/2018 11:30 AM EST Office Visit [address] [address] Vandana Epps MD Left arm pain (Primary Dx); Neck pain; Chronic left shoulder pain 12/19/2018 11:30 AM EST Minor Procedure/Test [facility] Cardiology [address] [place] [phone] Joaquin Wooten MD Chest pain, unspecified type (Primary Dx) 12/13/2018 2:00 PM EST Radiology [facility] Xray [address] [place] [address] Left shoulder pain, unspecified chronicity 12/13/[address] [facility] Orthopedic Surgery [address] [place] [address] Car Rodriguez DO 12/13/2018 1:00 PM EST Consult (Initial) [facility] Orthopedic Surgery [address] [place] [address] Car Rodriguez DO Left arm pain (Primary Dx); Chest wall pain; Left elbow pain; Left lateral epicondylitis 12/08/[address] [address] Vandana Epps MD Refill Request 11/07/2018 Refill [facility] Pulmonary [address] [facility] [address] [place] [address] Eloy Pritchard MD Refill Request 10/31/[address] [address] Vandana Epps MD Refill Request 10/24/[address] [address] Vandana Epps MD Results 10/18/2018 Orders Only [facility] Cardiology [address] [facility] [address] [place] [address] Batsheva Tamez DO 10/18/2018 10:45 AM EST Radiology [facility] Xray [address] [place] [address] 10/18/[address] [facility] Adult Medicine [address] [place] [phone] Vandana Epps MD 10/18/[address] [address] Vandana Epps MD PT-1 Form 10/18/2018 10:00 AM EST Office Visit [facility] CHARGE WEIGHER [address] [place] [phone] Diane Blanton MD Perimenopausal disorder (Primary Dx) 10/18/2018 8:30 AM EST CPE - Comprehensive Physical Exam [address] [address] Vandana Epps MD Routine history and physical examination of adult (Primary Dx); Chronic cough; Gastroesophageal reflux disease, esophagitis presence not specified; Chest pain, unspecified type; Weight loss; Chronic left shoulder pain; Screening for hypercholesterolemia; Immunization due 10/07/[address] [address] Vandana Epps MD E-prescribing Refill Request 10/06/[address] [phone] Vandana Epps MD Refill Request 09/29/[address] [address] Vandana Epps MD 09/25/2018 Letter/Form INTERNAL MED UNSPEC Vandana Epps MD 09/11/2018 Minor Procedure/Test [address], Unknown Provider 09/05/[address] [phone] Vandana Epps MD Referral Request 08/24/[address] [address] Vandana Epps MD E-prescribing Refill Request 07/18/2018 Hospital/Inpatient [facility] [address] [place] [address] Johnny Potter MD 06/27/[address] [address] Jeanine Mcpherson NP E-prescribing Refill Request 06/14/2018 9:15 AM EDT Office Visit [address] [address] Vandana Epps MD Gastroesophageal reflux disease without esophagitis (Primary Dx) 04/10/2018 3:00 PM EDT Office Visit [facility] Pulmonary [address] [facility] 2nd Floor [address] [place] [address] Eloy Pritchard MD Chronic cough (Primary Dx); Postnasal drip; Non-allergic rhinitis 04/08/2018 Refill [facility] Medicine [address] [place] [phone] Jeanine Mcphreson NP E-prescribing Refill Request 03/11/[address] [address] Jeanine Mcpherson NP E-prescribing Refill Request 03/06/[address] [address] Vandana Epps MD Refill Request 03/03/[address] [address] Vinita Rai MD E-prescribing Refill Request 02/23/[address] [address] Vandana Epps MD Refill Request 02/13/[address] [address] Tavo Martinez MD E-prescribing Refill Request 02/03/2018 Refill [facility] Medicine [address] [place] [phone] Vandana Epps MD Refill Request ([facility]) 01/24/[address] [address] Vandana Epps MD Colonoscopy/EGD 01/19/[address] [address] Vandana Epps MD Refill Request 01/19/2018 Telephone [facility] Pulmonary [address] [place] [address] Eloy Pritchard MD Prescription Assistance (Refill); Refill Request 01/09/[address] [address] Vandana Epps MD Refill Request 12/26/2017 Refill [facility] WEIGHER [address] [place] [address] Diane Blanton MD Balodimos, Iphigenia MD; Refill Request 12/21/2017 Telephone [facility] Pulmonary [address] [place] [address] Eloy Pritchard MD FYI ; Prescription Assistance 12/21/[address] [address] Vandana Epps MD Refill Request 12/07/[address] [address] Vandana Epps MD Prescription Assistance 12/02/2017 Refill [facility] Pulmonary [address] [place] [address] Eloy Pritchard MD Refill Request 12/02/[address] [address] Vandana Epps MD Refill Request 10/12/2017 Orders Only [address] [address] Vandana Epps MD 10/12/2017 11:45 AM EST CPE - Comprehensive Physical Exam [address] [address] Vandana Epps MD Routine history and physical examination of adult (Primary Dx); Need for influenza vaccination; Back pain, unspecified back location, unspecified back pain laterality, unspecified chronicity; Abdominal pain, unspecified abdominal location; Screen for STD (sexually transmitted disease); Flu vaccine need; Screening for hyperlipidemia 10/10/[address] [facility] CHARGE WEIGHER [address] [place] [phone] Diane Blanton MD 10/10/2017 3:00 PM EST Office Visit [facility] CHARGE WEIGHER [address] [place] [phone] Diane Blanton MD Perimenopausal disorder (Primary Dx); Screening for chlamydial disease 10/04/2017 3:00 PM EST Office Visit [facility] Pulmonary [address] [place] [address] [address] [place] [address] Eloy Pritchard MD Chronic cough (Primary Dx); Post-nasal drainage 09/20/2017 Refill [facility] Pulmonary [address] [place] [address] [place] [address] Eloy Pritchard MD Patient Questions ; Refill Request 09/15/2017 Orders Only [address] [address] Vandana Epps MD 09/08/2017 Minor Procedure/Test AUDIOLOGY UNSPECIFIED Provider, Unknown 09/08/2017 Minor Procedure/Test INTERNAL MED UNSPEC Abdi Solo MD 09/08/[address] [address] Vandana Epps MD Other 09/08/2017 Minor Procedure/Test [address] [address] [facility], Unknown Provider 09/07/[address] [address] Vandana Epps MD Referral Request 08/24/2017 Minor Procedure/Test [address] [address] Abdi Solo MD [facility], Unknown Provider 08/18/[address] [address] Jeaneth Mcbride LPN Referral Request 08/02/[address] [facility] CHARGE WEIGHER [address] [place] [phone] Diane Blanton MD Balodimos, Iphigenia MD; Refill Request 07/12/[address] [address] Abdi Solo MD Refill Request 06/23/2017 2:00 PM EDT Office Visit [facility] Pulmonary [address] [place] [address] Floor [address] [place] [address] Eloy Pritchard MD Postnasal drip (Primary Dx); Cough 06/17/[address] [address] Abdi Solo MD Results 06/14/2017 Orders Only [address] [address] Abdi Solo MD 06/14/2017 10:45 AM EDT Office Visit [address] [address] Abdi Solo MD Multiple joint pain (Primary Dx); Chronic cough; Gastroesophageal reflux disease, esophagitis presence not specified; Deafness, bilateral; Varicose veins of both lower extremities; Insomnia, unspecified type; Anxiety; Post-nasal drainage 05/17/2017 Orders Only [address] [address] Neena Crocker LPN 05/13/2017 12:45 PM EDT Consult (Initial) [facility] Pulmonary [address] [place] [address] [place] [address] Eloy Pritchard MD Postnasal drip (Primary Dx); Cough 04/18/2017 Home Visit [facility] UNSPEC Provider, Unknown 04/18/2017 12:30 PM EDT Office Visit [address] [phone] Karen Luciano NP Acute URI (Primary Dx); Cough; Acute pharyngitis, unspecified etiology; Allergic rhinitis, unspecified allergic rhinitis trigger, unspecified rhinitis seasonality 04/18/2017 Telephone [facility] Medicine [address] [place] [address] Abdi Solo MD Sore Throat; Cough 04/12/2017 1:15 PM EDT Office Visit [facility] Medicine [address] [place] [phone] Jeanine Mcpherson NP Upper respiratory tract infection, unspecified type (Primary Dx) 03/29/[address] [address] Abdi Solo MD Prescription Assistance 03/08/2017 Letter/Form INTERNAL MED UNSPEC Abdi Solo MD 02/24/2017 11:00 AM EDT Radiology [facility] [address] 02/24/2017 11:30 AM EDT Office Visit [facility] CHARGE WEIGHER [address] [place] [phone] Diane Blanton MD Perimenopausal disorder (Primary Dx) 02/18/2017 9:45 AM EDT Office Visit [address] [address] Abdi Solo MD Chronic cough (Primary Dx); Gastroesophageal reflux disease, esophagitis presence not specified; Deafness, bilateral; Insomnia, unspecified type; Varicose veins of both lower extremities; Gastroesophageal reflux disease without esophagitis; Vitamin D deficiency; Polyp of colon, unspecified part of colon, unspecified type; Non-allergic rhinitis; Anxiety 01/18/[address] [facility] CHARGE WEIGHER [address] [place] [phone] Diane Blanton MD Balodimos, Iphigenia MD; Care Coordination Communication 01/07/[address] [address] Abdi Solo MD Refill Request 12/30/[address] [facility] Adult Medicine [address] [place] [phone] Abdi Solo MD Care Coordination Communication 12/30/2016 11:45 AM EST Office Visit [facility] Visual Services [address] [place] [phone] Heidy Pritchard, OD Examination of eyes and vision (Primary Dx); History of retinal detachment 12/29/2016 Letter/Form INTERNAL MED UNSPEC Abdi Solo MD 12/24/2016 Minor Procedure/Test GASTRO UNSPECIFIED Johnny Potter MD 12/13/[address] [facility]GE WEIGHER [address] [place] [phone] Diane Blanton MD Balodimos, Iphigenia MD; Appointment 11/02/2016 Orders Only [facility] Otolaryngology [address] [address] Rebecca Hollins LPN Medications 11/02/2016 Telephone [facility] Otolaryngology [address] [address] Tami Doyle MD Refill Request 11/02/[address] [facility] Podiatry [address] [place] [phone] Ирина Taylor DPM Prescription Assistance 10/29/[address] [facility] Adult Medicine [address] [place] [phone] Abdi Solo MD Referral Request 10/29/2016 Telephone [facility] Medicine [address] [place] [phone] Abdi Solo MD Refill Request ; Prescription Assistance 10/29/2016 Telephone [facility] Medicine [address] [place] [phone] Abdi Solo MD Vision Screening 10/29/2016 10:30 AM EST Consult (Initial) [facility] Otolaryngology [address] [place] [address] Tami Doyle MD Cough (Primary Dx); Gastroesophageal reflux disease, esophagitis presence not specified; Dyspnea, unspecified type 10/26/2016 Refill [facility] Medicine [address] [place] [address] Abdi Solo MD Refill Request 10/06/[address] [facility] CHARGE WEIGHER [address] [place] [phone] Cintia Gómez NP 10/06/2016 1:15 PM EST Office Visit [facility] [employer]GE WEIGHER [address] [place] [phone] Cintia Gómez NP Encounter for gynecological examination without abnormal finding (Primary Dx); Dysmenorrhea; Perimenopause 09/09/2016 2:15 PM EDT Office Visit [facility] Family Practice [address] [place] [address] Tavo Martinez MD Cough (Primary Dx) 09/07/2016 Office Visit [facility] UNSPECIFIED Unknown Pcp, Non Rmg 09/07/[address] [phone] Abdi Solo MD Cough 09/06/[address] [phone] Abdi Solo MD Refill Request 09/01/[address] [phone] Jeaneth Mcbride LPN Refill Request 09/01/[address] [phone] Abdi Solo MD Medication Check; Return Call 08/24/2016 Orders Only [facility] Medicine [address] [place] [phone] Abdi Solo MD 08/23/[address] [facility] CHARGE WEIGHER [address] [place] [phone] Diane Blanton MD 08/20/[address] [phone] Abdi Solo MD Prescription Assistance 08/19/[address] [address] Abdi Solo MD Labs/orders 08/19/[address] [phone] Abdi Solo MD Prescription Assistance 08/19/2016 Orders Only [address] [phone] Abdi Solo MD 08/19/2016 1:00 PM EDT Office Visit [address] [phone] Abdi Solo MD Routine history and physical examination of adult (Primary Dx); Cough; Gastroesophageal reflux disease without esophagitis; Colon polyps; Post-nasal drainage; Vitamin D deficiency; Anxiety; Deafness, bilateral; Screening cholesterol level; Need for immunization against influenza 08/18/2016 Orders Only [phone] [place] [address], Unknown Provider 08/18/2016 Minor Procedure/Test INTERNAL MED UNSPEC Abdi Sool MD 07/26/2016 Minor Procedure/Test AUDIOLOGY UNSPECIFIED Provider, Unknown 06/08/[address] [address] Abdi Solo MD Referral Request 04/08/[address] [phone] Abdi Solo MD Refill Request 03/05/2016 Orders Only NON [address] [address] Xavi Ojeda PA 02/18/2016 Consult (Initial) GEN VAS UNSPECIFIED Trinity Phillip, BUSINESS SYSTEMS ANALYST 01/26/[address] [address] Abdi Solo MD Vomiting ; Cough ; Congestion; FYI 01/07/[address] [facility] Adult Medicine [address] [place] [phone] Abdi Solo MD Refill Request 12/30/2015 Refill [facility] Medicine [address] [place] [phone] Abdi Solo MD Refill Request ([facility] 12/04/[address] [facility] Adult Medicine [address] [place] [phone] Abdi Solo MD Refill Request 11/19/2015 Consult (Initial) [address] [address] Trinity Phillip NP 11/19/2015 9:30 AM EST Office Visit [facility] Orthopedic Surgery [address] [address] Xavi Ojeda PA Nondisplaced fracture of third metatarsal bone of left foot with routine healing, subsequent encounter (Primary Dx) 11/12/2015 Telephone [facility] Orthopedic Surgery [address] [place] [phone] Xavi Ojeda PA Letter/form Request (JL) 11/10/2015 Surgery/Major Procedure GEN VAS UNSPECIFIED Mack Mccarthy 11/05/2015 3:00 PM EST Office Visit [address] [address] Buffy Capps NP Dysphagia, unspecified dysphagia (Primary Dx); Cough 10/30/2015 Orders Only NON [facility] [address] [place] [address] Sv, Unknown Provider 10/30/[address] [phone] Abdi oSlo MD Imaging Study 10/30/2015 11:00 AM EST Office Visit [facility] Orthopedic Surgery [address] [place] [address] Noris Cruz PA Nondisplaced fracture of third metatarsal bone of left foot with routine healing, subsequent encounter (Primary Dx) 10/29/[address] [phone] Abdi Solo MD Information 10/28/2015 Orders Only [facility] Allergy [address] [place] [phone] John Oviedo MD 10/22/2015 Minor Procedure/Test INTERNAL MED UNSPEC Abdi Solo MD 10/21/2015 Consult (Initial) GEN VAS UNSPECIFIED Mack Mccarthy 10/15/[address] [phone] Abdi Solo MD Imaging Study 10/15/2015 Orders Only [address] [phone] Buffy Capps NP 10/15/2015 1:30 PM EST Consult (Initial) [facility] Orthopedic Surgery [address] [address] Noris Cruz PA Closed nondisplaced fracture of third metatarsal bone of left foot, initial encounter (Primary Dx) 10/13/[address] [phone] Abdi Solo MD Referral Request 10/10/[address] [phone] Abdi Solo MD Information 10/09/[address] [phone] Neena Crocker LPN Results 10/06/2015 Home Visit JHON GANN UNSPEC Provider, Unknown 10/06/2015 1:30 PM EST Radiology [facility] [address] Acute foot pain, left 10/06/2015 12:45 PM EST Office Visit [address] [phone] Karen Luciano NP Acute foot pain, left (Primary Dx) 10/06/[address] [phone] Abdi Solo MD Foot Pain 09/23/2015 10:45 AM EDT Radiology [facility] Xray [address] [place] [address] Cough 09/23/2015 10:00 AM EDT Office Visit [address] [phone] Buffy Capps NP Cough (Primary Dx); Need for influenza vaccination 09/17/[address] [phone] Abdi Solo MD 09/09/2015 Consult (Initial) GEN VAS UNSPECIFIED Mack Mccarthy 09/02/[address] [facility] Allergy [address] [place] [phone] John Oviedo MD Return Call 09/01/[address] [facility] Allergy [address] [place] [phone] John Oviedo MD 09/01/2015 1:40 PM EDT Office Visit [facility] Allergy [address] [place] [phone] John Oviedo MD Non-allergic rhinitis (Primary Dx); Gastroesophageal reflux disease without esophagitis; Post-nasal drainage 08/27/[address] [phone] Abdi Solo MD Refill Request ([facility]) 08/14/[address] [phone] Abdi Solo MD 08/13/[address] [facility] Allergy [address] [place] [phone] John Oviedo MD 08/13/[address] [phone] Abdi Solo MD Information 08/13/2015 1:40 PM EDT Office Visit [facility] Allergy [address] [place] [phone] John Oviedo MD PND (post-nasal drip) (Primary Dx); Sinus congestion; Allergic rhinitis due to pollen; Gastroesophageal reflux disease, esophagitis presence not specified 08/07/2015 Letter/Form INTERNAL MED UNSPEC Abdi Solo MD 08/06/[address] [phone] Abdi Solo MD Letter/form Request 08/06/[address] [phone] Abdi Solo MD Refill Request ([facility]) 07/28/[address] [phone] Abdi Solo MD Other 07/16/[address] [phone] Abdi Solo MD Unable To Schedule 07/10/2015 Consult (Initial) GEN VAS UNSPECIFIED Provider, Unknown 07/02/2015 Minor Procedure/Test INTERNAL MED UNSPEC Abdi Solo MD 06/30/[address] [facility] [address] [place] [phone] Diane Blanton MD Results 06/26/[address] [facility] [employer] [address] [place] [phone] Diane Blanton MD 06/26/2015 2:00 PM EDT Office Visit [facility] [address] [place] [phone] Diane Blanton MD Routine gynecological examination (Primary Dx); Vaginal discharge; Dysmenorrhea; Dysuria; Screening breast examination 06/26/2015 1:00 PM EDT CPE - Comprehensive Physical Exam [address] [phone] Abdi Solo MD Routine history and physical examination of adult (Primary Dx); Deafness, unspecified laterality; Sinus congestion; Varicose veins; Insomnia; Anxiety; Vitamin D deficiency; Post-nasal drainage; Gastroesophageal reflux disease without esophagitis; Colon polyps; Acute right eye pain; Environmental allergies 06/24/2015 Consult (Initial) GEN VAS UNSPECIFIED [facility], Unknown Provider 06/20/2015 Consult (Initial) REHABILITATION UNSPEC Provider, Unknown 06/12/2015 Surgery/Major Procedure GEN VAS UNSPECIFIED Mack Mccarthy 06/10/[address] [phone] Abdi Solo MD Refill Request ; Return Call 06/04/2015 9:15 AM EDT Office Visit [address] [phone] Buffy Capps NP Neck pain (Primary Dx); Knee pain, unspecified laterality 06/02/[address] [phone] Abdi Solo MD Results 05/16/2015 Hospital/Inpatient [facility]/[address] [address] Provider, Unknown 05/15/[address] [phone] Abdi Solo MD Refill Request ([facility]) 05/05/[address] [phone] Abdi Solo MD Results 04/30/2015 2:45 PM EDT Radiology [facility]-[address] [address] Left knee pain (Primary Dx) 04/30/2015 2:00 PM EDT Office Visit [address] [phone] Buffy Capps NP Left knee pain (Primary Dx) 04/14/[address] [phone] Abdi Solo MD Other ; Provider (ABDI SOLO MD (Medical Doctor,Internal Medicine [id number]) [facility] ([id number])) 04/10/2015 Office Visit [address] [phone] Abdi Solo MD Abnormal weight gain; Benign neoplasm of colon; Other allergy, other than to medicinal agents; Unspecified hearing loss; Pain in joint, lower leg; Disturbance of skin sensation; Asymptomatic varicose veins; Cough; Anxiety state, unspecified; Abdominal pain, epigastric; Unspecified sinusitis (chronic); Insomnia, unspecified; Other diseases of nasal cavity and sinuses(288.88); Esophageal reflux; Unspecified vitamin D deficiency 04/10/[address] [phone] Abdi Solo MD Medication Problem ; Provider (ABDI SOLO MD (Medical Doctor,Internal Medicine A-[id number]) [facility] ([id number])) 04/03/[address] [phone] Abdi Solo MD Refill Request ([facility]); Provider (ABDI SOLO MD (Medical Doctor,Internal Medicine A-[id number]) [facility] ([id number])) 03/25/2015 Consult (Initial) PODIATRY UNSPECIFIED Mary Meredith 03/25/2015 Letter/Form NON FC SA NON FC UNK Mary Meredith. Other unknown and unspecified cause of morbidity or mortality 02/05/[address] [phone] Abdi Solo MD Refill Request ([facility]); Provider (ABDI SOLO MD (Medical Doctor,Internal Medicine A-[id number]) [facility] ([id number])) 01/15/2015 Orders Only NON FC SA FC UNK Abdi Solo MD 01/01/2015 Consult (Initial) PODIATRY UNSPECIFIED Mary Meredith. 01/01/2015 Letter/Form NON FC SA NON FC UNK Loretz, Mary C. Other unknown and unspecified cause of morbidity or mortality 12/18/[address] [phone] Unknown Pcp, Non Rmg Medication Problem ; Provider (NON [facility]TRIUS PCP (Internal Medicine A-4) [facility] ([id number])) 12/18/[address] [phone] Unknown Pcp, Non Rmg 12/17/2014 Letter/Form NON FC SA NON FC UNK Provider, Unknown 12/17/[address] [phone] Unknown Pcp, Non Rmg Refill Request ([facility]); Provider (NON [facility]TRIUS PCP (Internal Medicine A-4) [facility] ([id number])) 12/17/[address] [phone] Unknown Pcp, Non Rmg Patient Questions ; Medication Problem ; Provider (NON ATRIUS PCP (Internal Medicine A-4) [facility] ([id number])) 11/20/2014 Letter/Form NON FC SA NON FC UNK Provider, Unknown 11/20/2014 Abstract [facility] Medicine [address] [place] [phone] Unknown Pcp, Non Rmg 10/16/[address] [phone] Unknown Pcp, Non Rmg Other ; Provider (NON ATRIUS PCP (Internal Medicine A-4) [facility] ([id number])) 10/14/[address] [phone] Unknown Pcp, Non Rmg Refill Request (Anna); Provider (NON ATRIUS PCP (Internal Medicine A-4) [facility] ([id number])) 2014 Letter/Form [address] [phone] Abdi Solo MD 09/11/2014 Letter/Form NON FC SA NON FC UNK Provider, Unknown 09/11/[address] [phone] Bonnie Patel LPN Other ; Provider (BONNIE PATEL LPN (Licensed Practical Nurse,Internal Medicine A-[id number]) [facility] ([id number])) 09/11/[address] [phone] Abdi Solo MD Return Call ; Provider (ABDI SOLO MD (Medical Doctor,Internal Medicine A-[id number]) [facility] ([id number])) 09/11/[address] [facility] Laboratory Services [address] [place] [phone] Abdi Solo MD 09/11/2014 Office Visit [address] [phone] Abdi Solo MD Dysuria; Unspecified vitamin D deficiency; Other allergy, other than to medicinal agents; Need for prophylactic vaccination and inoculation against influenza; Anxiety state, unspecified; Esophageal reflux 09/05/2014 Orders Only NON FC SA FC UNK Abdi Solo MD 08/30/2014 Minor Procedure/Test OPHTHAL UNSPECIFIED Provider, Unknown 08/22/2014 Letter/Form [facility] Pediatrics [address] [place] [phone] Abdi Solo MD 07/23/2014 Letter/Form [facility] Medicine [address] [place] [phone] Abdi Solo MD 06/24/2014 Letter/Form NON FC SA NON FC UNK Provider, Unknown 06/24/2014 Abstract [facility] Medicine [address] [place] [phone] Unknown Pcp, Non Rmg 06/20/[address] [facility] [employer] [address] [place] [phone] Diane Blanton MD Return Call ; Provider (DIANE BLANTON MD (Medical Doctor,Obstetrics and Gynecology A-[id number]) [facility] Obstetrics and Gynecology ([id number])) 06/18/2014 Telephone [facility] Medicine [address] [place] [phone] Abdi Solo MD Other ; Provider (ABDI SOLO MD (Medical Doctor,Internal Medicine A-[id number]) [facility] ([id number])) 06/17/[address] [facility] [employer] [address] [place] [phone] Diane Blanton MD Other ('Elton JAZZY #); Provider (DIANE BLANTON MD (Medical Doctor,Obstetrics and Gynecology A-[id number]) [facility] Obstetrics and Gynecology ([id number])) 06/17/[address] [facility] [address] [place] [phone] Diane Blanton MD Other ; Provider (DIANE BLANTON MD (Medical Doctor,Obstetrics and Gynecology A-[id number]) [facility] Obstetrics and Gynecology ([id number])) 06/17/[address] [facility] [address] [place] [phone] Diane Blanton MD Other ; Provider (DIANE BLANTON MD (Medical Doctor,Obstetrics and Gynecology A-[id number]) [facility] Obstetrics and Gynecology ([id number])) 06/13/[address] [phone] Abdi Solo MD Other ; Provider (ABDI SOLO MD (Medical Doctor,Internal Medicine A-[id number]) [facility] Medicine ([id number])) 06/13/2014 Orders Only [address] [phone] Abdi Solo MD 06/12/2014 CPE - Comprehensive Physical Exam [facility] [address] [place] [phone] Diane Blanton MD Routine gynecological examination; Other screening breast examination; Other screening mammogram; Screening for malignant neoplasm of the cervix; Other disorder of menstruation and other abnormal bleeding from female genital tract; Unspecified symptom associated with female genital organs 06/12/2014 Office Visit [address] [phone] Abdi Solo MD Abdominal pain, epigastric; Esophageal reflux; Other diseases of nasal cavity and sinuses(478.19); Cough; Pain in joint, lower leg; Special screening for malignant neoplasms, colon; Need for prophylactic vaccination with combined nachxbzist-kpwpslh-hj rtussis (DTP) vaccine; Pain in joint, multiple sites; Unspecified vitamin D deficiency; Screening examination for pulmonary tuberculosis 06/06/2014 Letter/Form [facility] [employer] [address] [place] [phone] Diane Blanton MD 05/23/2014 Letter/Form [address] [phone] Abdi Solo MD 03/19/2014 Letter/Form [address] [phone] Abdi Solo MD 03/19/[address] [phone] Abdi Solo MD 03/07/[address] [phone] Abdi Solo MD Other ; Provider (ABDI SOLO MD (Medical Doctor,Internal Medicine A-[id number]) [facility] ([id number])) 03/06/2014 Orders Only [address] [phone] Abdi Solo MD Medications 03/06/2014 CPE - Comprehensive Physical Exam [address] [phone] Abdi Solo MD Breast screening, unspecified; Pain in joint, multiple sites; Screening for lipoid disorders; Anxiety state, unspecified; Unspecified hearing loss; Asymptomatic varicose veins; Esophageal reflux; Chest pain, unspecified; Need for prophylactic vaccination against Streptococcus pneumoniae (pneumococcus); Routine general medical examination at a health care facility 03/05/[address] [phone] Abdi Solo MD Other (CONFIRM APPT); Provider (ABDI SOLO MD (Medical Doctor,Internal Medicine A-[id number]) [facility] ([id number])) 01/21/[address] [phone] Abdi Solo MD 01/18/[address] [phone] Abdi Solo MD Other (INFORMATION NEEDED); Provider (ABDI SOLO MD (Medical Doctor,Internal Medicine A-[id number]) [facility] ([id number])) 01/10/[address] [phone] Abdi Solo MD Other ; Provider (ABDI SOLO MD (Medical Doctor,Internal Medicine A-[id number]) [facility] ([id number])) 01/08/[address] [phone] Abdi Solo MD Other (HPC FORM); Medication Problem ; Provider (ABDI SOLO MD (Medical Doctor,Internal Medicine A-[id number]) [facility] ([id number])) 01/08/[address] [phone] Abdi Solo MD [email or web address] [address] [place] [address] AT [facility] [phone]); Provider (ABDI SOLO MD (Medical Doctor,Internal Medicine A-[id number]) [facility] ([id number])) 12/25/2013 Orders Only [address] [phone] Abdi Solo MD 12/21/[address] [phone] Abdi Solo MD Return Call ; Provider (ABDI SOLO MD (Medical Doctor,Internal Medicine A-[id number]) [facility] (-[id number])) 12/13/2013 Letter/Form NON FC SA NON FC UNK Provider, Unknown 12/13/2013 Office Visit [address] [phone] Abdi Solo MD Asymptomatic varicose veins; Abdominal pain, epigastric; Anxiety state, unspecified; Insomnia, unspecified; Other diseases of nasal cavity and sinuses; Unspecified hearing loss; Pain in limb 12/07/[address] [phone] Abdi Solo MD Other ; Provider (ABDI SOLO MD (Medical Doctor,Internal Medicine A-[id number]) [facility] ([id number])) 11/29/2013 Home Visit [address] [phone] Abdi Solo MD 11/29/2013 [employer] [address] [phone] Abdi Solo MD Other unknown and unspecified cause of morbidity or mortality 11/22/2013 Letter/Form [address] [phone] Abdi Solo MD 10/30/[address] [phone] Abdi Solo MD Hospital F/U ; Provider (ABDI SOLO MD (Medical Doctor,Internal Medicine H-[id number]) [facility] ([id number])) 04/25/2013 Minor Procedure/Test OPHTHAL UNSPECIFIED Provider, Unknown Allergies No known active allergies Medications TraZODone HCl 100 MG TabIndications:C ough 1 tab at bedtime Active FLUoxetine HCl 10 MG Tab 1 daily Active Acetaminophen (Mapap Arthritis Pain) 650 MG 8 hr tablet Take one tablet (650 mg total) by mouth every 8 (eight) hours if needed for mild pain or headaches (or fever-no more than 3 daily) 40 tablet 1 0 Active Vitamin D3 (VITAMIN D-3) 50 MCG (2000 UT) capsule TAKE 1 CAPSULE BY MOUTH EVERY DAY IN THE MORNING 90 capsule 3 0 Active Famotidine (PEPCID) 20 MG tablet Take one tablet (20 mg total) by mouth 2 (two) times a day 60 tablet 3 0 Active FLUTICASONE PROPIONATE, NASAL, (FLONASE) 50 MCG/ACT nasal sprayIndications :Postnasal drip,Chronic cough Administer two sprays into each nostril 2 (two) times a day IN EACH NOSTRIL 3 Bottle 5 0 Active Loratadine-Pseud oephedrine (Claritin-D 24 Hour) 10-240 MG per 24 hr tablet Take 1 tablet by mouth 1 (one) time each day Active Mirtazapine (REMERON) 30 MG tablet TAKE 1 TABLET BY MOUTH NIGHTLY AT 8PM PLUS OR MINUS TWO HOURS. 3 Active Fluoxetine HCl (PROzac) 10 MG capsule 3 Active Polyethyl Glycol-Propyl Glycol (HM Lubricating Tears) 0.4-0.3 % Solution INSTILL 1 DROP INTO EACH EYE TWICE DAILY. 15 mL 1 4 Active Active Problems Problem Noted Date Diagnosed Date Postnasal drip 06/23/2017 Perimenopausal disorder-on pop 02/24/2017 Chronic cough 02/18/2017 Non-allergic rhinitis 09/01/2015 Vitamin D deficiency 04/10/2015 Post-nasal drainage 04/10/2015 Gastroesophageal reflux disease without esophagi tis 04/10/2015 Colon polyps 04/10/2015 Cervical cancer screening 06/12/2014 Overview (10/11/2016): never sa - never had pap - done 05/2014 - if neg/neg ok for lo risk screening 10/11/2016 Impression: Pap results show Pap negative HPV negative Plan: Repeat cytology in 3 years Abnormal mammogram, unspecified 06/12/2014 Overview (10/24/2015): add views u/s rt - asymmetry/calcs Deafness 12/13/2013 Sinus congestion 12/13/2013 Varicose veins of both lower extremities 014 Insomnia 12/13/2013 Anxiety 12/13/2013 Resolved Problems Problem Noted Date Diagnosed Date Resolved Date Nondisplaced fracture of thi rd metatarsal bone of left foot with routine healing 11/19/2015 0 06/14/2017 GERD (gastroesophageal reflux disease) 03/06/2014 04/10/2015 Immunizations Name Administration Dates Next Due Fluzone Vac, 3 Yrs & > 08/19/2016,09/23/2015 Influenza,injectable,MDCK, Prsrv Fr,Quad 022,08/21/2020 Influenza,injectable,quad,Prsrv Fr 08/28/2021,,10/18/2018 Influenza,injectable,quad,preservative 7,09/11/2014 PPD/TST (Tuberculin Skin Test) 06/12/2014 PPV23 (Pneumovax) 03/06/2014 Tdap - 06/12/2014 influenza,seasonal,trivalent ,PF (Fluzone, Fluarix, Flulaval) 10/02/2024 Family History Medical History Relation Name Comments Diabetes Mother Diabetes - Type II Osteoporosis/Bone Disorder Mother Osteoporosis/Bone Disorder Sister Relation Name Status Comments Father Mother Alive Sister Alive Social History Smoking Status as of 12/25/2024 Tobacco Use Types Packs/Day Years Used Date Smoking Tobacco: Never Assessed Intimate Partner Violence Answer Date R ecorded Fear of Current or Ex-Partner Not on file Emotionally Abused Not on file 07/20/2023 Physically Abused Not on file 07/20/2023 Sexually Abused Not on file 07/20/2023 Feel Safe at Home Not on file 07/20/2023 Sex and Gender Information Value Date Recorded Sex Assigned at Not on file Legal Sex Female 9:26 PM EST Gender Identity Not on file Sexual Orientation Not on file Last Filed Vital Signs Vital Sign Reading Time Taken Comments Blood Pressure 122/70 12/03/2020 1:57 PM EST Pulse 82 12/03/2020 1:57 PM EST Temperature 36.9 ??C (98.4 ??F) 10/23/2019 1:15 PM ES T Respiratory Rate 16 10/04/2017 3:08 PM EST Oxygen Saturation 98% 12/03/2020 1:57 PM EST RA Inhaled Oxygen Concentration - - Weight 52.2 kg (115 lb) 12/03/2020 1:57 PM EST Height 154.9 cm (5' 1 ) 12/03/2020 1:57 PM EST Body Mass Index 21.73 12/03/2020 1:57 PM EST Plan of Treatment Upcoming Encounters Date Type Department Care Team (Late st Contact Info) Description 07/08/2025 8:30 AM EDT Office Visit [facility]. Optometry [address] [place] [phone] Agus Jacinto OD [address] [place] [address] *est pt exam, no cl, no dm, 1 year follow up, aodv, *not elig. until 12/23/24, , 12/21* tommie, interp needed, aoir sent te over sent email to [email or web address] Procedures * Due to [place] state law, this organization might not be sharing negative HIV tests. Procedure Name Priority Date/Time Associated Diagnosis Comments MYLES BILATERAL SCREENING DIGITAL MAMMOGRAM WITH CK 09/15/2020 2:22 PM EDT LIPID PANEL WITH REFLEX TO DIRECT LDL Routine 10/23/2019 2:41 PM EST Screening for hyperlipidemia CBC INCLUDES DIFFERENTIAL AND PLATELET COUNT Routine 10/23/2019 2:41 PM EST Weight loss COMPREHENSIVE METABOLIC PANEL WITH GFR Routine 10/23/2019 2:41 PM EST Weight loss VENIPUNCTURE Routine 10/23/2019 2:41 PM EST Weight loss PULMONARY FUNCTION TEST Routine 10/18/20 12:00 AM EST Cough XRAY CHEST, 2 VIEWS, PA & LATERAL (DX: COUGH R05.9/ 786.2) FC Routine 10/17/2019 1:38 PM EST MYLES BILATERAL SCREENING DIGITAL MAMMOGRAM WITH CK 09/12/2019 11:01 AM EDT STREPTOCOCCUS GROUP A, RT-PCR (SBO-ONLY) Routine 06/13/2019 2:00 PM EDT Cough Pharyngitis, unspecified etiology XRAY SPINE, CERVICAL; 4 OR 5 VIEWS (DX: NECK PAIN *NO INJURY*) Routine 12/26/2018 12:46 PM EST Neck pain CARDIOVASCULAR STRESS TEST W/TREADMILL, BICYCLE, AND/OR PHARMACOLOGICAL STRESS; W/ SUPERV/INTERP Routine 12/19/2018 Chest pain, unspecified type XRAY SHOULDER COMPLETE MIN 2 VWS - LEFT (DX: SHOULDER PAIN *NO INJURY*) Routine 12/13/2018 1:01 PM EST Left shoulder pain, unspecified chronicity EKG-TO BE READ & BILLED BY ADULT OR PEDIATRIC CARDIOLOGY Routine 10/18/2018 10:39 AM EST Chest pain, unspecified type XRAY CHEST, 2 VIEWS, PA & LATERAL (DX: DYSPNEA R06.00/ 786.09) FC Routine 10/18/2018 10:28 AM EST LIPID PANEL WITH REFLEX TO DIRECT LDL Routine 10/18/2018 10:17 AM EST Screening for hypercholesterolemia THYROID STIMULATING HORMONE (TSH) WITH FREE T4 REFLEX, SERUM Routine 10/18/2018 10:17 AM EST Weight loss COMPREHENSIVE METABOLIC PANEL WITH GFR Routine 10/18/2018 10:17 AM EST Weight loss CBC INCLUDES DIFFERENTIAL AND PLATELET COUNT Routine 10/18/2018 10:17 AM EST Weight loss MYLES BILATERAL SCREENING DIGITAL MAMMOGRAM WITH CK 09/12/2018 11:12 AM EDT TISSUE EXAM Routine 07/18/2018 12:31 PM EDT COLONOSCOPY 07/18/2018 12:04 PM EDT LIPID PANEL WITH REFLEX TO DIRECT LDL Routine 10/12/2017 1:09 PM EST Screening for hyperlipidemia CBC INCLUDES DIFFERENTIAL AND PLATELET COUNT Routine 10/12/2017 1:09 PM EST Back pain, unspecified back location, unspecified back pain laterality, unspecified chronicity Abdominal pain, unspecified abdominal location COMPREHENSIVE METABOLIC PANEL WITH GFR Routine 10/12/2017 1:09 PM EST Back pain, unspecified back location, unspecified back pain laterality, unspecified chronicity Abdominal pain, unspecified abdominal location HEPATITIS B SURFACE ANTIGEN Routine 10/12/2017 1:07 PM EST Screen for STD (sexually transmitted disease) SYPHILIS (FTA) ANTIBODY CASCADING REFLEX TO RPR/TITER (*PREFERRED SCREEN*) Routine 10/12/2017 1:07 PM EST Screen for STD (sexually transmitted disease) HEPATITIS C AB WITH REFLEX TO RNA PCR, SERUM Routine 10/12/2017 1:07 PM EST Screen for STD (sexually transmitted disease) CHLAMYDIA TRACHOMATIS/N. GONORRHOEAE (GC) RNA, TMA (URINE) Routine 10/10/2017 4:30 PM EST Screening for chlamydial disease MYLES BILATERAL SCREENING DIGITAL MAMMOGRAM WITH CK 09/09/2017 12:55 PM EDT MAMMOGRAPHY-BILATERAL 09/08/2017 MAMMOGRAPHY-BILATERAL 09/08/2017 ENT OTORHINOLARYNGOLOGICAL TEST/PROCEDURE, UNSPECIFIED 09/08/2017 COMPREHENSIVE METABOLIC PANEL WITH GFR Routine 06/14/2017 11:32 AM EDT Multiple joint pain Chronic cough Gastroesophageal reflux disease, esophagitis presence not specified CBC INCLUDES DIFFERENTIAL AND PLATELET COUNT Routine 06/14/2017 11:32 AM EDT Multiple joint pain Chronic cough Gastroesophageal reflux disease, esophagitis presence not specified ERYTHROCYTE SEDIMENTATION RATE (ESR) Routine 06/14/2017 11:32 AM EDT Multiple joint pain NICHO SCREEN IFA W/REFLEX TO TITER/PATTERN IFA Routine 06/14/2017 11:29 AM EDT Multiple joint pain CYCLIC CITRULLINATEDPEPTIDE CCP AB IGG Routine 06/14/2017 11:29 AM EDT Multiple joint pain RHEUMATOID FACTOR, SERUM Routine 017 11:29 AM EDT Multiple joint pain C-REACTIVE PROTEIN (CRP) - INFLAMMATION Routine 06/14/2017 11:29 AM EDT Multiple joint pain INFECTIOUS AGENT AG DETECTION BY IMMUNOASSAY W DIRECT OPTICAL OBSERVATION; STREPTOCOCCUS, GROUP A Routine 04/18/2017 Acute pharyngitis, unspecified etiology US TRANSVAGINAL (FOR CHARGE WEIGHER DEPT USE ONLY) Routine 02/24/2017 11:29 AM EDT Dysmenorrhea CYTOLOGY/PATHOLOGY/GENETIC S UNSPECIFIED 12/24/2016 EGD (UPPER GI ENDOSCOPY) 12/24/2016 LARYNGOSCOPY, FLEXIBLE; DIAGNOSTIC Routine 10/29/2016 10:54 AM EST Gastroesophageal reflux disease, esophagitis presence not specified Dyspnea, unspecified type THINPREP TIS PAP AND HPV MRNA E6/E7 REFLEX HPV 16,18/45 Routine 10/06/2016 4:27 PM EST Encounter for gynecological examination without abnormal finding THYROID STIMULATING HORMONE (TSH) WITH FREE T4 REFLEX, SERUM Routine 08/19/2016 2:08 PM EDT Anxiety VITAMIN D, 25-HYDROXY, TOTAL, IMMUNOASSAY Routine 08/19/2016 2:08 PM EDT Vitamin D deficiency LIPID PANEL WITH REFLEX TO DIRECT LDL Routine 08/19/2016 2:08 PM EDT Screening cholesterol level COMPREHENSIVE METABOLIC PANEL WITH GFR Routine 08/19/2016 2:08 PM EDT Gastroesophageal reflux disease without esophagitis CBC INCLUDES DIFFERENTIAL AND PLATELET COUNT Routine 08/19/2016 2:08 PM EDT Gastroesophageal reflux disease without esophagitis MYLES BILATERAL SCREENING DIGITAL MAMMOGRAM WITH CK Routine 08/18/2016 12:25 PM EDT MAMMOGRAPHY-BILATERAL 08/18/2016 ENT OTORHINOLARYNGOLOGICAL TEST/PROCEDURE, UNSPECIFIED 07/26/2016 FOOT 3 VIEW - LEFT Routine 03/05/2016 3:35 PM EDT FOOT 3 VIEW - LEFT Routine 11/19/2015 10:25 AM EST UNSPECIFIED MAJOR PROCEDURE 11/10/2015 FOOT 3 VIEW - LEFT Routine 10/30/2015 11:17 AM EST HELICOBACTER PYLORI UREA BREATH TEST (UBIT-(R)) Routine 10/28/2015 8:57 AM EST Gastroesophageal reflux disease without esophagitis CT - THORAX W/O CONTRAST THEN W/CONTRAST AND MORE SECTIONS 10/22/2015 CT - THORAX W/O CONTRAST THEN W/CONTRAST AND MORE SECTIONS 10/22/2015 CLOSED TREATMENT, METATARSAL FX; W/O MANIPULATION, EACH Routine 10/15/2015 2:11 PM EST Closed nondisplaced fracture of third metatarsal bone of left foot, initial encounter XRAY FOOT COMPLETE MIN 3 VWS - LEFT (DX: FOOT PAIN *NO INJURY*) Routine 10/06/2015 1:22 PM EST Acute foot pain, left XRAY CHEST, 2 VIEWS, PA & LATERAL (DX: COUGH R05.9/ 786.2) FC Routine 09/23/2015 10:47 AM EDT Cough DERMATOPHAGOIDES FARINAE (D2) IGE Routine 09/01/2015 2:10 PM EDT Sinus congestion PND (post-nasal drip) Allergic rhinitis due to pollen Gastroesophageal reflux disease, esophagitis presence not specified DERMATOPHAGOIDES PTERONYSSINUS (D1) IGE Routine 09/01/2015 2:10 PM EDT Sinus congestion PND (post-nasal drip) Allergic rhinitis due to pollen Gastroesophageal reflux disease, esophagitis presence not specified HELICOBACTER PYLORI IGGANTIBODY Routine 08/13/2015 2:50 PM EDT Gastroesophageal reflux disease, esophagitis presence not specified IGE, SERUM Routine 08/13/2015 2:50 PM EDT Sinus congestion PND (post-nasal drip) Allergic rhinitis due to pollen DOG DANDER (E5) IGE Routine 08/13/2015 2:50 PM EDT Sinus congestion PND (post-nasal drip) Allergic rhinitis due to pollen CAT EPITHELIUM ANDDANDER (E1) IGE Routine 08/13/2015 2:50 PM EDT Sinus congestion PND (post-nasal drip) Allergic rhinitis due to pollen COCKROACH (I6) IGE Routine 08/13/2015 2:50 PM EDT Sinus congestion PND (post-nasal drip) Allergic rhinitis due to pollen SHEEP SORREL (W18) IGE Routine 5 2:50 PM EDT Sinus congestion PND (post-nasal drip) Allergic rhinitis due to pollen FLETCHER'S QUARTER (GOOSE FOOT) (W10) IGE Routine 08/13/2015 2:50 PM EDT Sinus congestion PND (post-nasal drip) Allergic rhinitis due to pollen GIANT RAGWEED (TALL) (W3)IGE Routine 08/13/2015 2:50 PM EDT Sinus congestion PND (post-nasal drip) Allergic rhinitis due to pollen COMMON RAGWEED (SHORT) (W1) IGE Routine 08/13/2015 2:50 PM EDT Sinus congestion PND (post-nasal drip) Allergic rhinitis due to pollen BIRCH (T3) IGE Routine 08/13/2015 2:50 PM EDT Sinus congestion PND (post-nasal drip) Allergic rhinitis due to pollen MAPLE (BOX ELDER) (T1) IGE Routine 08/13 2:50 PM EDT Sinus congestion PND (post-nasal drip) Allergic rhinitis due to pollen ELM (T8) IGE Routine 08/13/2015 2:50 PM EDT Sinus congestion PND (post-nasal drip) Allergic rhinitis due to pollen ALLERGEN (IGE), CONV. RAST-EDWINA CAMPUZANO (672) Routine 08/13/2015 2:50 PM EDT Sinus congestion PND (post-nasal drip) Allergic rhinitis due to pollen OAK (T7) IGE Routine 08/13/2015 2:50 PM EDT Sinus congestion PND (post-nasal drip) Allergic rhinitis due to pollen WHITE GERALD (T15) IGE Routine 08/13/2015 2:50 PM EDT Sinus congestion PND (post-nasal drip) Allergic rhinitis due to pollen GAGE GRASS (G6) IGE Routine 5 2:50 PM EDT Sinus congestion PND (post-nasal drip) Allergic rhinitis due to pollen ALLISON GRASS (G10) IGE Routine 08/13/20 15 2:50 PM EDT Sinus congestion PND (post-nasal drip) Allergic rhinitis due to pollen BERMUDA GRASS (G2) IGE Routine 5 2:50 PM EDT Sinus congestion PND (post-nasal drip) Allergic rhinitis due to pollen CLADOSPORIUM HERBARUM (M2) IGE Routine 08/13/2015 2:50 PM EDT Sinus congestion PND (post-nasal drip) Allergic rhinitis due to pollen ASPERGILLUS FUMIGATUS(M3) IGE Routine 08/13/2015 2:50 PM EDT Sinus congestion PND (post-nasal drip) Allergic rhinitis due to pollen ALTERNARIA ALTERNATA (M6)IGE Routine 08/13/2015 2:50 PM EDT Sinus congestion PND (post-nasal drip) Allergic rhinitis due to pollen DERMATOPHAGOIDES PTERONYSSINUS (D1) IGE Routine 08/13/2015 2:50 PM EDT Sinus congestion PND (post-nasal drip) Allergic rhinitis due to pollen DERMATOPHAGOIDES FARINAE (D2) IGE Routine 08/13/2015 2:50 PM EDT Sinus congestion PND (post-nasal drip) Allergic rhinitis due to pollen MAMMOGRAPHY-BILATERAL 07/02/2015 CULTURE, URINE, ROUTINE Routine 06/26/20 15 5:24 PM EDT Dysuria URINALYSIS, COMPLETE INCLUDES DIPSTICK AND MICROSCOPIC Routine 06/26/2015 5:24 PM EDT Dysuria BV/VAGINITIS PANELDNA PROBE(AFFIRM) Routine 06/26/2015 5:23 PM EDT Vaginal discharge UNSPECIFIED MAJOR PROCEDURE 06/12/2015 XRAY KNEE FOR ORTHO - LEFT Routine 04/30 3:01 PM EDT Left knee pain PROTEIN ELECTROPHORESIS RANDOM URINE Routine 04/10/2015 9:45 AM EDT PROTEIN ELECTROPHORESIS, SERUM Routine 04/10/2015 9:45 AM EDT VITAMIN B12 Routine 04/10/2015 9:45 AM EDT C-REACTIVE PROTEIN QUANTITATIVE Routine 04/10/2015 9:45 AM EDT SED RATE Routine 04/10/2015 9:45 AM EDT T4, FREE Routine 04/10/2015 9:45 AM EDT TSH Routine 04/10/2015 9:45 AM EDT HEMOGRAM (CBC) W AUTO DIFF RFLX MAN DIFF Routine 04/10/2015 9:45 AM EDT COMPREHENSIVE METABOLIC PROFILE W/GFR (SMG) Routine 04/10/2015 9:45 AM EDT VITAMIN D 25-HYDROXY TOTAL ONLY Routine 04/10/2015 9:45 AM EDT COLONOSCOPY Routine 01/15/2015 12:00 AM EST URINE CULTURE Routine 09/11/2014 10:41 AM EDT URINALYSIS W MICROSCOPIC Routine 014 10:41 AM EDT BASIC METABOLIC PANEL W/GFR ([facility] Routine 09/11/2014 10:41 AM EDT VITAMIN D 25-HYDROXY TOTAL ONLY Routine 09/11/2014 10:41 AM EDT LAB TEST Routine 09/04/2014 12:00 AM EDT OPHTHALMOLOGY CONSULTATION Routine 08/30 12:00 AM EDT OPHTHALMOLOGICAL TEST/PROCEDURE, UNSPECIFIED 08/30/2014 MAMMOGRAM AND BREAST ULTRASOUND-RIGHT UNILATERAL-SMG ONLY Routine 07/01/2014 12:00 AM EDT PELVIC US W/EV Routine 06/14/2014 12:00 AM EDT GENITAL CULTURE Routine 06/12/2014 5:29 PM EDT G. VAGINALIS CULTURE R/0 Routine 014 5:29 PM EDT KNEE XRAY LEFT MIN 3 VIEWS Routine 06/12 5:00 PM EDT PROLACTIN Routine 06/12/2014 4:52 PM EDT FSH Routine 06/12/2014 4:52 PM EDT SED RATE Routine 06/12/2014 4:52 PM EDT BASIC METABOLIC PANEL W/GFR ([facility]) Routine 06/12/2014 4:52 PM EDT CYCLIC CITRULLINATED PEPTIDE ANTIBODY (IGG) Routine 06/12/2014 4:52 PM EDT NICHO SCREEN W/REFL TITER IFA Routine 06/12/2014 4:52 PM EDT TSH W REFLEX Routine 06/12/2014 4:52 PM EDT RHEUMATOID FACTOR QUANT Routine 06/12/20 14 4:52 PM EDT C REACTIVE PROTEIN CARDIO Routine 2013 4:52 PM EDT VITAMIN D 25-HYDROXY TOTAL ONLY Routine 06/12/2014 4:52 PM EDT HEMOGRAM (CBC) Routine 06/12/2014 4:52 PM EDT PAP TEST Routine 06/12/2014 3:20 AM EDT HPV HIGH RISK Routine 06/12/2014 3:20 AM EDT SCREENING MAMMOGRAPHY DIGITAL Routine 06/12/2014 12:00 AM EDT XR CHEST, 2 VIEWS, FRONTAL AND LATERAL; Routine 03/06/2014 2:44 PM EDT LIPID PROFILE Routine 03/06/2014 2:28 PM EDT TSH Routine 03/06/2014 2:28 PM EDT VITAMIN D 25-HYDROXY TOTAL ONLY Routine 03/06/2014 2:28 PM EDT T4, FREE Routine 03/06/2014 2:28 PM EDT HEMOGRAM (CBC) W AUTO DIFF RFLX MAN DIFF Routine 03/06/2014 2:28 PM EDT COMPREHENSIVE METABOLIC PROFILE W/GFR (SMG) Routine 03/06/2014 2:28 PM EDT EKG Routine 03/06/2014 OPHTHALMOLOGY CONSULTATION Routine 04/25 12:00 AM EDT OPHTHALMOLOGICAL TEST/PROCEDURE, UNSPECIFIED 04/25/2013 Results * Due to [place] state law, this organization might not be sharing negative HIV tests. * MYLES BILATERAL SCREENING DIGITAL MAMMOGRAM WITH KC (09/15/2020 2:22 PM EDT) Only the most recent of5 resultswithin the time period is included. Anatomical Region Laterality Modality Other 09/15/2020 2:22 PM EDT Narrative 09/15/2020 2:22 PM EDT EXAMINATION MYLES Bilateral Screening Digital Mammogram With Ck. INDICATION Magda Jung is a 54 y.o. female and is seen for: MYLES Bilateral Screening Digital Mammogram With Ck. R2 CAD was used in the interpretation of this study. COMPARISON Comparison is made to prior examinations dating back to 2013 Bilateral Breast Findings: The breasts are heterogeneously dense, which may obscure small masses. No significant masses, calcifications or other abnormalities are seen. IMPRESSION No evidence of malignancy. ??Routine mammographic screening is recommended. ?? The patient was entered into a reminder system with a subsequent mammography target date. BI-RADS ??ATLAS category (overall): 1 Negative DENSE BREAST RECOMMENDATIONS: The patient has dense breast tissue shown on mammography. Per [employer] Appropriateness Criteria ??for Breast Cancer Screening (https://acsearch.acr.org/docs/84412/Narrative/) patient may benefit from tomosynthesis on future mammography and supplemental imaging with automated breast ultrasound (ABUS) or breast MRI depending on risk factors. Automated Breast Ultrasound (ABUS) is available at [facility]. To schedule a patient, you can either enter an ABUS order into [facility] (type ABUS), call [facility] Scheduling at [phone], or fax an external order to [phone]. Breast MRI is available at [facility] ([facility], [facility], and [facility]). To schedule, enter a breast MRI order into [facility] (MRI Breast Bilateral W WO contrast and 3DCAD), call [phone] or [phone], or fax [phone]. Procedure Note [facility], Unknown Provider - 09/15/2020 EXAMINATION MYLES Bilateral Screening Digital Mammogram With Ck. INDICATION Magda Jung is a 54 y.o. female and is seen for: MYLES Bilateral Screening Digital Mammogram With Ck. R2 CAD was used in the interpretation of this study. COMPARISON Comparison is made to prior examinations dating back to 2014 Bilateral Breast Findings: The breasts are heterogeneously dense, which may obscure small masses. Nosignificant masses, calcifications or other abnormalities are seen. IMPRESSION No evidence of malignancy. Routine mammographic screening is recommended. The patient was entered into a reminder system with a subsequentmammography target date. BI-RADS ATLAS category (overall): 1 Negative DENSE BREAST RECOMMENDATIONS: The patient has dense breast tissue shown on mammography. Per [employer] Appropriateness Criteria for Breast Cancer Screening(https://acsearch.acr.org/docs/41973/Narrative/) patient may benefit fromtomosynthesis on future mammography and supplemental imaging with automated breast ultrasound(ABUS) or breast MRI depending on risk factors. Automated Breast Ultrasound (ABUS) is available at [facility]. To schedule a patient, you can either enter anABUS order into [facility] (type ABUS), call [facility] at [phone], or fax an external order to [phone]. Breast MRI is available at [facility] ([facility], [facility], [facility]). To schedule, enter a breast MRIorder into [facility] (MRI Breast Bilateral W WO contrast and 3DCAD), call [phone] or [phone], orfax [phone]. us Vandana Epps MD IM[facility]ING[facility] Final Result * CBC INCLUDES DIFFERENTIAL AND PLATELET COUNT (10/23/2019 2:41 PM EST) Only the most recent of5 resultswithin the time period is included. WBC 7.0 3.8 - 10.8 K/uL [facility] Neutrophils # 4.9 1.5 - 7.8 K/uL [facility] Immature Granulocytes # 0.0 0.0 - 0.1 K/uL [facility] Lymphocytes # 1.4 0.9 - 3.9 K/uL [facility] Monocytes # 0.6 0.2 - 1.0 K/uL [facility] Eosinophils # 0.0 0.0 - 0.5 K/uL [facility] Basophils # 0.0 0.0 - 0.2 K/uL [facility] Neutrophils % 70.4 % [facility] Immature Granulocytes % 0.10 % [facility] Lymphocytes % 20.4 % [facility] Monocytes % 8.2 % [facility] Eosinophils % 0.6 % [facility] Basophils % 0.3 % [facility] RBC 4.31 3.80 - 5.10 M/uL [facility] Hemoglobin 13.3 11.7 - 15.5 g/dL [facility] Hematocrit 39.5 35.0 - 45.0 % [facility] MCV 91.6 80.0 - 100.0 fl [facility] MCH 30.9 27.0 - 33.0 pg [facility] MCHC 33.7 32.0 - 36.0 g/dL [facility] RDW 12.5 11.0 - 15.0 % [facility] PLT 279 140 - 400 K/uL [facility] 10/23/2019 2:41 PM EST 10/23/2019 2:41 PM EST Narrative [facility] - 10/23/2019 3:06 PM EST Patient's primary care provider is: ??N/A Testing performed at: [facility], [address] [place] [address], [id number], Lens Cementer: Seth Gutierrez MD us Vandana Epps MD LAB SAME DAY RESULT Final Resu lt [address] [address] DIRECTOR Seth Gutierrez MD * THYROID STIMULATING HORMONE (TSH) WITH FREE T4 REFLEX, SERUM (10/23/2019 2:41 PM EST) Only the most recent of3 resultswithin the time period is included. TSH (Thyrotropin) 2.41 0.40 - 4.50 uIU/ml [facility] 10/23/2019 2:41 PM EST 10/23/2019 2:41 PM EST Narrative [facility] - 10/23/2019 5:01 PM EST Patient's primary care provider is: ??N/A Testing performed at: [facility], [address] [place] [address], [id number], Lens Cementer: Seth Gutierrez MD Vandana Epps MD LABORATORY Final Result Performing Organization Address [facility] de Phone Number [address] [address] DIRECTOR Seth Gutierrez MD * (ABNORMAL) LIPID PANEL WITH REFLEX TO DIRECT LDL (10/23/2019 2:41 PM EST) Only the most recent of4 resultswithin the time period is included. Cholesterol 165 <200 mg/dL [facility] Triglyceride 137 <150 mg/dL [facility] HDL Cholesterol 40(L) >40 mg/dL [facility] Comment: NCEP GUIDELINES Desirable >60 mg/dL Borderline 40-59 mg/dL ?? Undesirable <40 mg/dL LDL Cholesterol 98 <130 mg/dL [facility] CHOL/HDL Ratio 4 0 - 5 CALC [facility] 10/23/2019 2:41 PM EST 10/23/2019 2:41 PM EST Narrative [facility] - 10/23/2019 5:01 PM EST Patient's primary care provider is: ??N/A Testing performed at: [facility], [address] [place] [address], [id number], Lens Cementer: Seth Gutierrez MD us Vandana Epps MD LABORATORY Final Result Performing Organization Address [facility]/ZIP Co de Phone Number [address] [address] DIRECTOR Seth Gutierrez MD * COMPREHENSIVE METABOLIC PANEL WITH GFR (10/23/2019 2:41 PM EST) Only the most recent of5 resultswithin the time period is included. Glucose 92 65 - 99 mg/dl [facility] Urea Nitrogen Blood (BUN) 19 7 - 25 mg/dL [facility] Creatinine 0.77 0.50 - 1.16 mg/dL [facility] Sodium 141 136 - 145 mmo/L [facility] Potassium 4.6 3.5 - 5.3 mmol/L [facility] Chloride 101 98 - 107 mmo/L [facility] Calcium 10.2 8.5 - 10.4 mg/dL [facility] Protein Total (Serum) 7.4 6.0 - 8.3 g/dL [facility] Albumin 4.5 3.5 - 5.2 g/dL [facility] Globulin 3 2 - 4 G/DL [facility] Bilirubin Total 0.24 0.00 - 1.20 mg/dL [facility] Alkaline phosphatase 67 33 - 130 U/L [facility] AST (SGOT) 17 <38 U/L [facility] ALT (SGPT) 13 <47 U/L [facility] Carbon dioxide 28 23 - 33 mmol/L [facility] GFR 83 >60 ml/min [facility] Comment:If the patient is Af rican [place], please multiply result by 1.210 10/23/2019 2:41 PM EST 10/23/2019 2:41 PM EST Narrative [facility] - 10/23/2019 5:01 PM EST Patient's primary care provider is: ??N/A Testing performed at: [facility], [address] [place] [address], [id number], Lens Cementer: Seth Gutierrez MD Vandana Epps MD LABORATORY Final Result [address] [address] DIRECTOR Seth Gutierrez MD * (ABNORMAL) PULMONARY FUNCTION TEST (10/18/2019 12:00 AM EST) [facility] Pulmonary Function Test Report Test Interpretation ? Office spirometry performed on 10/18/2019: FEV1 is normal at 1.46 L, or 72% predicted. ??FVC is reduced at 1.81 L, or 66% predicted. ??Forced exhalation time was brief at 2.12 L. ??Flow volume loop is normal. ??Impression: Spirometry suggests a restrictive ventilatory defect which may be confirmed through measurement of lung volumes if clinically indicated. ??Note that forced exhalation time was reduced, which may falsely lower forced vital capacity. ??Please note there was difficulty in coordinating test given 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 ? SPIROMETRY +/- ? Predicted Range ? Pre-Bronchodilato r ? BRONCHODILATOR ? Mean ?LL ?UL ?Actual ?%Pred ? FVC ?2.73 ?1.88 ?3.59 ?1.81 (A) ?66 ? FEV 0.5 ?1.71 ?0.85 ?2.57 ?1.10 ?65 ? FEV1 ? 2.03 ?1.25 ?2.80 ?1.46 (N) ?72 ? FEV1/FVC ? 75 ?63 ?81 (N) ?109 ? FET ?2.12 ? [id number] ? 2.50 ?1.04 ?3.95 ?1.31 ?53 ? FEF25 ?5.03 ?2.31 ?7.75 ?3.09 ?61 ? FEF50 ?1.88 ?0.28 ?3.49 ?1.42 ?76 ? FEF75 ?1.15 ?0.08 ?2.22 ?0.70 ?61 ? PEFR ? 5.34 ?2.48 ?8.19 ?3.99 ?75 ? PIFR ? 3.56 ?1.92 ?54 ? FEF50/FIF50 ?0.74 ? FIVC ? 2.73 ?1.88 ?3.59 ?1.40 ?51 ? [facility] SPIROMETRY SYSTEM FVC - Pre-Bronchodilato r 1.81(A) 1.88 - 3.59 L [facility] SPIROMETRY SYSTEM FVC - Lower Limit Predicted 1.88 L [facility]IR[facility] FVC - Mean Predicted 2.73 L [facility]IR[facility] FVC - Upper Limit Predicted 3.59 L [employer] SPIROMETRY SYSTEM FVC - % Predicted Pre-Bronchodilato r 66 % [employer] SPIR[employer] SYSTEM FEV0.5 - Pre-Bronchodilato r 1.10 0.85 - 2.57 L [employer] SPIROMETRY SYSTEM FEV0.5 - Lower Limit Predicted 0.85 L [facility] FEV0.5 - Mean Predicted 1.71 L [facility] FEV0.5 - Upper Limit Predicted 2.57 L [employer] SPIROMETRY SYSTEM FEV0.5 - % Predicted Pre-Bronchodilato r 65 % [facility] FEV1 - Pre-Bronchodilato r 1.46 1.25 - 2.80 L [employer] SPIROMETRY SYSTEM FEV1 - Lower Limit Predicted 1.25 L [employer] SPIROMETRY SYSTEM FEV1 - Mean Predicted 2.03 L [employer] SPIROMETRY SYSTEM FEV1 - Upper Limit Predicted 2.80 L [employer] SPIROMETRY SYSTEM FEV1 - % Predicted Pre-Bronchodilato r 72 % [facility] FEV1/FVC - Pre-Bronchodilato r 81 63- % [facility] FEV1/FVC - Lower Limit Predicted 63 % [employer] SPIR[employer]RY SYSTEM FEV1/FVC - Mean Predicted 75 % [employer] SPIR[employer] SYSTEM FEV1/FVC - % Predicted Pre-Bronchodilato r 109 % [employer] SPIROMETRY SYSTEM [id number] - Pre-Bronchodilato r 1.31 1.04 - 3.95 L/s [employer] SPIROMETRY SYSTEM [id number] - Lower Limit Predicted 1.04 L/s [employer] SPIR[employer]ETRY SYSTEM TBO12-35 - Mean Predicted 2.50 L/s [employer] SPIROMETRY SYSTEM [id number] - Upper Limit Predicted 3.95 L/s [employer] SPIROMETRY SYSTEM [id number] - % Predicted Pre-Bronchodilato r 53 % [employer] SPIROMETRY SYSTEM FEF25 - Pre-Bronchodilato r 3.09 2.31 - 7.75 L/s [employer] SPIROMETRY SYSTEM FEF25 - Lower Limit Predicted 2.31 L/s [employer] SPIROMETRY SYSTEM FEF25 - Mean Predicted 5.03 L/s [employer] SPIROMETRY SYSTEM FEF25 - Upper Limit Predicted 7.75 L/s [facility] SPIROMETRY SYSTEM FEF25 - % Predicted Pre-Bronchodilato r 61 % [facility] SPIR[employer]RY SYSTEM FEF50 - Pre-Bronchodilato r 1.42 0.28 - 3.49 L/s [employer] SPIROMETRY SYSTEM FEF50 - Lower Limit Predicted 0.28 L/s [employer] SPIROMETRY SYSTEM FEF50 - Mean Predicted 1.88 L/s [employer] SPIROMETRY SYSTEM FEF50 - Upper Limit Predicted 3.49 L/s [employer] SPIROMETRY SYSTEM FEF50 - % Predicted Pre-Bronchodilato r 76 % [facility]IR[employer] SYSTEM FEF75 - Pre-Bronchodilato r 0.70 0.08 - 2.22 L/s [employer] SPIR[employer]RY SYSTEM FEF75 - Lower Limit Predicted 0.08 L/s [employer] SPIR[employer] SYSTEM FEF75 - Mean Predicted 1.15 L/s [employer] SPIROM[employer]RY SYSTEM FEF75 - Upper Limit Predicted 2.22 L/s [employer] SPIROMETRY SYSTEM FEF75 - % Predicted Pre-Bronchodilato r 61 % [facility] PEFR - Pre-Bronchodilato r 3.99 2.48 - 8.19 L/s [employer] SPIR[employer] SYSTEM PEFR - Lower Limit Predicted 2.48 L/s [employer] SPIR[employer] SYSTEM PEFR - Mean Predicted 5.34 L/s [employer] SPIR[employer] SYSTEM PEFR - Upper Limit Predicted 8.19 L/s [employer] SPIR[employer]RY SYSTEM PEFR - % Predicted Pre-Bronchodilato r 75 % [facility] SPIR[employer] SYSTEM FEF50/FIF50 - Pre-Bronchodilato r 0.74 [employer] SPIROMETRY SYSTEM FET - Pre-Bronchodilato r 2.12 s [employer] SPIROMETRY SYSTEM FIVC - Pre-Bronchodilato r 1.40 1.88 - 3.59 L [employer] SPIROMETRY SYSTEM FIVC - Lower Limit Predicted 1.88 L [employer] SPIROMETRY SYSTEM FIVC - Mean Predicted 2.73 L [employer] SPIROMETRY SYSTEM FIVC - Upper Limit Predicted 3.59 L [employer] SPIROMETRY SYSTEM FIVC - % Predicted Pre-Bronchodilato r 51 % [facility] SPIR[employer] SYSTEM PIFR - Pre-Bronchodilato r 1.92 L/s [employer] SPIROMETRY SYSTEM PIFR - Mean Predicted 3.56 L/s [employer] SPIROMETRY SYSTEM PIFR - % Predicted Pre-Bronchodilato r 54 % [employer] SPIROMETRY SYSTEM Pulmonary Function Test Interpretation Office spirometry performed on 10/18/2019: FEV1 is normal at 1.46 L, or 72% predicted. FVC is reduced at 1.81 L, or 66% predicted. Forced exhalation time was brief at 2.12 L. Flow volume loop is normal. Impression: Spirometry suggests a restrictive ventilatory defect which may be confirmed through measurement of lung volumes if clinically indicated. Note that forced exhalation time was reduced, which may falsely lower forced vital capacity. Please note there was difficulty in coordinating test given 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 [employer] SPIROMETRY SYSTEM 10/18/2019 us Eloy Pritchard MD PROCEDURES Final Res ult [facility]IR[facility]RY SYSTEM * XRAY CHEST, 2 VIEWS, PA & LATERAL (DX: COUGH R05/ 786.2) FC (10/17/2019 1:38 PM EST) Only the most recent of2 resultswithin the time period is included. Anatomical Region Laterality Modality CHEST Radiographic Betsy ging 10/17/2019 1:52 PM EST Narrative 10/17/2019 1:52 PM EST EXAM: ??CHEST, PA AND LATERAL Comparison: CR ??- XRAY CHEST 2 VIEWS PA ?? - 10/18/2018 10:26 AM EST FINDINGS: Frontal and lateral views of the chest show no evidence of air space consolidation. There is no pneumothorax, pleural effusion, or congestive changes. ??Hyperinflation. ??Heart size is normal. ??No free air is seen beneath the diaphragm. The visualized soft tissue and osseous structures are unremarkable. IMPRESSION: No acute cardiopulmonary abnormality is identified. Emphysema. Procedure Note Maureen Hernandez MD - 10/17/2019 EXAM: CHEST, PA AND LATERAL Comparison: CR - XRAY CHEST 2 VIEWS PA - 10/18/2018 10:26 AM EST FINDINGS: Frontal and lateral views of the chest show no evidence of air space consolidation. There is no pneumothorax, pleural effusion, or congestive changes. Hyperinflation. Heart size is normal. No free air is seenbeneath the diaphragm. The visualized soft tissue and osseous structures are unremarkable. IMPRESSION: No acute cardiopulmonary abnormality is identified. Emphysema. us Vandana Epps MD IMG XRAY NO CONTRAST ORDERABLE S Final Result * STREPTOCOCCUS GROUP A, RT-PCR (SMG-ONLY) (06/13/2019 2:00 PM EDT) Streptococcus pyogenes DNA (Throat) STREP GRP A NOT DETECTED STREP GRP A NOT DETECTED [facility] 06/13/2019 2:00 PM EDT 06/13/2019 2:00 PM EDT Narrative [facility] - 06/13/2019 2:39 PM EDT Patient's primary care provider is: ??N/A Lab results sent to critical lab pool 06/13/2019 at 2:38 PM by SULMA Testing performed at: [facility], [address] [place] [address], [address], Lens Cementer: Seth Gutierrez MD us Vandana Epps MD LAB SAME DAY RESULT Final Resu lt [address] [address] DIRECTOR Seth Gutierrez MD * XRAY SPINE, CERVICAL; 4 OR 5 VIEWS (DX: NECK PAIN *NO INJURY* M54.2/ 723.1) FC (12/26/2018 12:46 PMEST) Anatomical Region Laterality Modality Spine Radiographic Betsy ging 12/26/2018 1:04 PM EST Narrative 12/26/2018 1:04 PM EST EXAM: CERVICAL SPINE Comparison: None FINDINGS: AP, lateral, both oblique views and open mouth odontoid view are available. There is a normal lordotic curvature to the cervical spine. There is no fracture or subluxation. ??There is preservation of vertebral body heights. ?? Anterior osteophytes present at C5 and C6. ??Intervertebral disc space narrowing at C3-4. ??There is foraminal narrowing bilaterally at C2-C3. ??The C1-C2 relationship is normal. The prevertebral soft tissues are preserved. The pedicles are intact. ?? IMPRESSION: Multilevel spondylotic changes of the cervical spine as detailed without acute traumatic injury. Procedure Note Maureen Hernandez MD - 12/26/2018 EXAM: CERVICAL SPINE Comparison: None FINDINGS: AP, lateral, both oblique views and open mouth odontoid view are available. There is a normal lordotic curvature to the cervical spine.There is no fracture or subluxation. There is preservation of vertebral bodyheights. Anterior osteophytes present at C5 and C6. Intervertebral disc spacenarrowing at C3-4. There is foraminal narrowing bilaterally at C2-C3. The C1-C2 relationship is normal. The prevertebral soft tissues are preserved. The pedicles are intact. IMPRESSION: Multilevel spondylotic changes of the cervical spine as detailed withoutacute traumatic injury. us Vandana Epps MD IMG XRAY NO CONTRAST ORDERABLE S Final Result * CARDIOVASCULAR STRESS TEST W/TREADMILL, BICYCLE, AND/OR PHARMACOLOGICAL STRESS; W/ SUPERV/INTERP (12/19/2018) ETT BASELINE HR beats/min ETT BASELINE SYSTOLIC BP mmHg ETT BASELINE DIASTOLIC BP mmHg ETT EXERCISE TIME MINUTES minutes ETT EXERCISE TIME SECONDS secs ETT METS METS ETT PEAK HR beats/min ETT % MAXIMAL PEAK HR % ETT PEAK SYSTOLIC BP mmHg ETT PEAK DIASTOLIC BP mmHg ETT RESOLUTION OF ST SEGMENTS minutes ETT RESOLUTION OF SYMPTOMS minutes ETT PERSANTINE DOSE mg ETT LEXISCAN DOSE Narrative 12/19/2018 Negative max Curtis ETT See scanned. ??The results of this test have been briefly discussed with this patient. Exercise tolerance was poor. Joaquin Wooten MD CARDIOVASCULAR-WITH INBSKT RT G Final Result * XRAY SHOULDER COMPLETE MIN 2 VWS [...] XRAY NO CONTRAST ORDERAB LES Final Result * EKG-TO BE READ AND BILLED BY [...] is not present Confirmed by Batsheva Tamez ([id number]), editor newspaper RIKY LEWIS ([id number]) on 10/24/2018 8:02:37 AM MUSE EKG SYSTEM 10/18/2018 10:3 9 AM EST 10/24/2018 8:02 AM EST us Vandana Epps MD CARDIOVASCULAR-WITH INBSKT RTG Final Result MUSE EKG SYSTEM * XRAY CHEST, 2 VIEWS, PA & LATERAL (DX: DYSPNEA R06.00/ 786.09) (TODAY) FC (10/18/2018 10:28 AM EST) Anatomical Region Laterality Modality CHEST Radiographic Betsy ging 10/18/2018 10:4 4 AM EST Narrative 10/18/2018 10:44 AM EST EXAM: ?? CHEST X-RAY, PA AND LATERAL: COMPARISON: ?? None FINDINGS: The cardiomediastinal silhouette is unremarkable. The lungs are well aerated and clear. ?? No mass, infiltrate or atelectasis is apparent. No pleural effusion is suspected. The osseous structures are unremarkable. IMPRESSION: ?? No active cardiopulmonary disease demonstrated. Procedure Note Robert Dotson MD - 10/18/2018 EXAM: CHEST X-RAY, PA AND LATERAL: COMPARISON: None FINDINGS: The cardiomediastinal silhouette is unremarkable. The lungs are well aerated and clear. No mass, infiltrate or atelectasisis apparent. No pleural effusion is suspected. The osseous structures are unremarkable. IMPRESSION: No active cardiopulmonary disease demonstrated. us Vandana Epps MD IMG XRAY NO CONTRAST ORDERABLE S Final Result * TISSUE EXAM (07/18/2018 12:31 PM EDT) FINAL DIAGNOSIS Colon (Descending) Polypectomy: - Tubular adenoma at ??9:24 AM [facility] CLINICAL HISTORY Pre-op diagnosis: same [facility] GROSS DESCRIPTION One specimen is received in formalin labeled with patient name, MRN, and descending polyp . ??It consists of one box soft tissue fragment measuring 0.5 cm in greatest dimension. ??Specimen is entirely submitted in 1A [facility] EMBEDDED IMAGES [facility] RESULTING AGENCY Case was signed out at [facility], Department of Pathology, [employer] 3 CLIA [id number] [facility] REPORT HEADER Surgical Pathology Report ? Case: [id number] ? Authorizing Provider: ??Johnny Potter MD ?Collected: ? 07/18/2018 1231 ? Ordering Location: ? [facility]- ?Received: ?07/18/2018 1445 ? [facility] ? Preoperative Care Unit ? Pathologist: ? Willian Lozano MD ? Specimen: ?Large Intestine, Descending Colon, descending colon polyp, cold snare ? [facility] 07/18/2018 12:3 1 PM EDT Narrative [facility] - 07/19/2018 9:24 AM EDT Pre-op diagnosis: same us Johnny Potter MD PATHOLOGY Final Resul t [address] [address] * COLONOSCOPY (07/18/2018 12:04 PM EDT) Narrative Procedure Note Johnny Potter MD - 07/18/2018 12:38 PM EDT Procedures signed by Johnny Potter MD at 07/18/2018 12:38 PM Author: Johnny Potter MD Service: (none) Author Type: Physician Filed: 07/18/2018 12:38 PM Date of Service: 07/18/2018 12:04 PM Status:Signed Python Architect: Johnny Potter MD (Physician) Procedure Orders: 1. COLONOSCOPY [[id number]] ordered by Johnny Potter MD at Gastroenterology Patient Name: Magda Jung Procedure Date: 07/18/2018 12:04 PM Date of : 1965 Admit Type: Outpatient Age: 52 Room: [place] [address] Gender: Female Note Status: Finalized Attending MD: Johnny Potter MD Procedure: Colonoscopy Indications: High risk colon cancer surveillance: Personal history of colonicpolyps, Last colonoscopy: December 2014 Providers: Johnny Potter MD Referring MD: Abdi Solo MD (Referring MD) Requesting Provider: Medicines: Propofol per Anesthesia, Propofol total dose 200 mgIV Complications: No immediate complications. Procedure: Pre-Anesthesia Assessment: - Prior to the procedure, a History and Physical was performed, and patient medications and allergies were reviewed. The patient is competent. The risks andbenefits of the procedure and the sedation options and riskswere discussed with the patient. All questions were answered and informed consent was obtained. Patientidentification and proposed procedure were verified by the physician,the nurse and the anesthesiologist in the procedure room. Mental Status Examination: alert and oriented.Respiratory Examination: clear to auscultation. CV Examination: normal. Prophylactic Antibiotics: The patient does not require prophylactic antibiotics. Prior Anticoagulants: The patient has taken no previous anticoagulant or antiplatelet agents. ASA Grade Assessment: III - Apatient with severe systemic disease. After reviewing the risks and benefits, the patient was deemed in satisfactory condition to undergo the procedure. The anesthesia plan was to use monitored anesthesia care (MAC). Immediately prior to administration of medications, the patient was re-assessed for adequacy to receive sedatives. Theheart rate, respiratory rate, oxygen saturations, blood pressure, adequacy of pulmonary ventilation, andresponse to care were monitored throughout the procedure. The physical status of the patient was re-assessed afterthe procedure. After I obtained informed consent, the scope was passed under direct vision. Throughout the procedure, the patient's blood pressure, pulse, and oxygen saturations were monitored continuously. The [id number]-[id number] colonoscope was introduced through the anus andadvanced to the cecum, identified by appendiceal orifice and ileocecal valve. The colonoscopy was performed without difficulty. The patient tolerated the procedure well.The quality of the bowel preparation was excellent. Findings: The perianal and digital rectal examinations were normal. A 7 mm polyp was found in the descending colon. The polyp wassessile. The polyp was removed with a cold snare. Resection and retrieval were complete. Estimated blood loss was minimal. Non-bleeding internal hemorrhoids were found during retroflexion. The hemorrhoids were small. A few medium-mouthed diverticula were found in the ascending colon. Impression: - One 7 mm polyp in the descending colon, removed witha cold snare. Resected and retrieved. - Non-bleeding internal hemorrhoids. - Diverticulosis in the ascending colon. Recommendation: - Patient has a contact number available foremergencies. The signs and symptoms of potential delayedcomplications were discussed with the patient. Return to normal activities tomorrow. Written discharge instructionswere provided to the patient. - Use fiber, for example Citrucel, Fibercon, Konsyl or Metamucil. - Repeat colonoscopy in 5 years for surveillance. - Return to GI office PRN. Johnny Potter MD 07/18/2018 12:38:02 PM This report has been signed electronically. Number of Addenda: 0 Note Initiated On: 07/18/2018 12:04 PM Johnny Potter MD PROCEDURES Final Resul t * SYPHILIS (FTA) ANTIBODY CASCADING REFLEX TO RPR/TITER (*PREFERRED SCREEN*) (10/12/2017 1:07 PM EST) Pathologist [facility] Treponema pallidum Ab NEGATIVE NEGATIVE [facility] Comment: No antibodies to T. pallidum (the agent causing syphilis) were detected in the specimen. This result, however, does not exclude very recent T. pallidum infection; testing of a second specimen, collected 2-4 weeks after this specimen, is recommended if the index of suspicion for recent infection is high. 10/12/2017 1:07 PM EST 10/12/2017 7:10 PM EST Narrative Resulting Agency Comment [id number] us Vandana Epps MD LABORATORY Final Result [facility] [address] [place] [address] * HEPATITIS B SURFACE ANTIGEN (10/12/2017 1:07 PM EST) Pathologist [facility] Hepatitis B virus surface Ag NON-REACTI VE NON-REACT ALEXIS [facility] 10/12/2017 1:07 PM EST 10/12/2017 7:10 PM EST Narrative Resulting Agency Comment [id number] us Vandana Epps MD LABORATORY Final Result Performing Organization Address [facility] Co de Phone Number [facility] [address] [place] [address] * HEPATITIS C AB WITH REFLEX TO RNA PCR, SERUM (10/12/2017 1:07 PM EST) Hepatitis C virus Ab NON-REACTI VE NON-REACT ALEXIS [facility] Hepatitis C virus Ab Signal/Cutoff 0.02 <1.00 [facility] 10/12/2017 1:07 PM EST 10/12/2017 7:10 PM EST Narrative Resulting Agency Comment [id number] Vandana Epps MD LABORATORY Final Result Performing Organization Address [facility] Phone Number [facility] [address] [place] [address] * CHLAMYDIA TRACHOMATIS/N. GONORRHOEAE (GC) RNA, TMA (URINE) (10/10/2017 4:30 PM EST) Chlamydia trachomatis rRNA NOT DETECTED NOT DETECTED [facility] Neisseria Gonorrhoeae rRNA NOT DETECTED NOT DETECTED [facility] COMMENT SEE NOTE [facility] Comment: This test was performed using the APTIMA COMBO2 Assay ([employer] The analytical performance characteristics of this assay, when used to test SurePath specimens have been determined by [facility]. 10/10/2017 4:30 PM EST 10/10/2017 10:00 PM EST Narrative Resulting Agency Comment [id number] Diane Blanton MD LABORATORY Final R esult Performing Organization Address [facility] Co de Phone Number [facility] [address] [place] [address] * ENT OTORHINOLARYNGOLOGICAL TEST/PROCEDURE, UNSPECIFIED (09/08/2017) us Unknown Provider PROCEDURES Final Result * MAMMOGRAPHY-BILATERAL (09/08/2017) Only the most recent of4 resultswithin the time period is included. 09/08/2017 us Abdi Solo MD GENERAL IMAGING- OTHER Final R esult * ERYTHROCYTE SEDIMENTATION RATE (ESR), WESTERGREN (06/14/2017 11:32 AM EDT) Sedimentation Rate [place] (ESR) 17 0 - 20 mm/hr [facility] 06/14/2017 11:3 2 AM EDT 06/14/2017 11:32 AM EDT Narrative [facility] - 06/14/2017 1:54 PM EDT Patient's primary care provider is: ??N/A Testing performed at: [facility], [address] [place] [address], [address], Lens Cementer: Vikas Cyr M.D. us Abdi Solo MD LAB SAME DAY RESULT Final Resu lt Performing Organization Address [facility]/ZIP Co de Phone Number [address] [address] DIRECTOR VIKAS CYR M.D. * (ABNORMAL) RHEUMATOID FACTOR, SERUM (06/14/2017 11:29 AM EDT) Pathologist [facility] Rheumatoid Factor (Quant) 26(H) <14 IU/mL [facility] 06/14/2017 11:2 9 AM EDT 06/14/2017 8:03 PM EDT Narrative Resulting Agency Comment [id number] us Abdi Solo MD LABORATORY Final Result [facility] [address] [place] [address] * C-REACTIVE PROTEIN (CRP) - INFLAMMATION (06/14/2017 11:29 AM EDT) C reactive protein <0.10 <0.80 mg/dL [facility] Comment: Please be advised that patients taking Carboxypenicillins may exhibit falsely decreased C-Reactive Protein levels due to an analytical interference in this assay. 06/14/2017 11:2 9 AM EDT 06/14/2017 8:03 PM EDT Narrative Resulting Agency Comment [id number] Abdi Solo MD LABORATORY Final Result Performing Organization Address [facility] Co de Phone Number [facility] [address] [place] [address] * NICHO SCREEN IFA W/REFLEX TO TITER/PATTERN IFA (06/14/2017 11:29 AM EDT) NICHO IFA NEGATIVE NEGATIVE [facility] Comment: NICHO IFA is a first line screen for detecting the presence of up to approximately 150 autoantibodies in various autoimmune diseases. A negative NICHO IFA result suggests NICHO-associated autoimmune diseases are not present at this time. Visit Physician FAQs for interpretation of all antibodies in the [facility], prevalence, and association with diseases at http://[employer]/ faq/LYH824 06/14/2017 11:2 9 AM EDT 06/14/2017 8:03 PM EDT Narrative Resulting Agency Comment [id number] Abdi Solo MD LABORATORY Final Result Performing Organization Address [facility] de Phone Number [facility] [address] [place] [phone] * CYCLIC CITRULLINATEDPEPTIDE CCP AB IGG (06/14/2017 11:29 AM EDT) CCP Ab, IgG <16 UNITS [facility] Comment: Reference Range Negative: ?<20 Weak Positive: ? 20-39 Moderate Positive: ?? 40-59 Strong Positive: ? >59 06/14/2017 11:2 9 AM EDT 06/14/2017 8:03 PM EDT Narrative Resulting Agency Comment [id number] Abdi Solo MD LABORATORY Final Result Performing Organization Address [facility] Co de Phone Number [facility] [address] [place] [address] * STREP THROAT (GROUP A) RAPID DETECTION - STATION (04/18/2017) STREP GROUP A, RAPID (THROAT) negative 04/18/2017 Karen Luciano BUSINESS SYSTEMS ANALYST [facility] Final Result * US TRANSVAGINAL (FOR CHARGE WEIGHER DEPT USE ONLY)FC (02/24/2017 11:29 AM EDT) Anatomical Region Laterality Modality Ultrasound Impressions 03/01/2017 12:28 PM EDT : results given and discussed at time of appt Narrative 03/01/2017 12:28 PM EDT Reason for Ultrasound: Menstrual Problem Method: transvaginal Uterus Measurements: 7.6x4.1x3.3cm smooth contour: ??yes Endometrial stripe measurement: 2.0mm homogeneous Rt OV not seen Lt OV not seen [place]: no free fluid Efficiency Engineer Comments: Uterus anteverted, homogeneous Ovaries not seen, no adnexal masses seen No free fluid in cds IMPRESSION: Normal but limitted ultrasound Cintia Gómez BUSINESS SYSTEMS ANALYST IMG US OBGYN ORDERABLES Mary Ann henao Result * EGD (UPPER GI ENDOSCOPY) (12/24/2016) Narrative Transcriptions Johnny Potter MD - 12/27/2016 12:00 AM EST Johnny Potter MD PROCEDURES Final Resul t * CYTOLOGY/PATHOLOGY/GENETICS UNSPECIFIED (12/24/2016) Johnny Potter MD PATHOLOGY Final Resul t * THINPREP TIS PAP AND HPV MRNA E6/E7 REFLEX HPV 16,18/45 (10/06/2016 4:27 PM EST) Clinical information none given [facility] Comment:{CLINICAL INFORMATIO N: {[id number]) Date last menstrual period 09/30/16 [facility] Comment:{LMP: {[id number]) Date of previous PAP smear NONE GIVEN [facility] Comment:{PREV. PAP: {[id number]) Date of previous biopsy NONE GIVEN [facility] Comment:{PREV. BX: {[id number]) Specimen source (Cvx/Vag) Cervix [facility] Comment:{SOURCE: {[id number]) Statement of Adequacy (Cvx/Vag) Satisfactory for evaluation. Endocervical/rosario sformation zone component absent. [facility] Comment:{STATEMENT OF ADEQUA CY: {[id number]) Cytology, Pap Smear Negative for intraepithelial lesion or malignancy. [facility] Comment:{INTERPRETATION/RESU LT: {[id number]) Cytology study comment (Cvx/Vag) This Pap test has been evaluated with computer assisted technology. [facility] Comment:{COMMENT: {[id number]) Curing Oven Attendant (Cvx/Vag) MXD, CT (ASCP) CT screening location: [place] [address] [facility] Comment:{SMALL ENGINE TECHNICIAN: { [id number]) HPV MRNA E6/E7 Not Detected Not Detected [facility] Comment: {HPV mRNA E6/E7 {[id number]) This test was performed using the APTIMA HPV Assay ([employer] This assay detects E6/E7 viral messenger RNA (mRNA) from 14 high-risk HPV types (16,18,31,33,35,39,45,51,52,56,58,59,66,68). 10/06/2016 4:27 PM EST 10/07/2016 2:45 AM EST Narrative Resulting Agency Comment [id number] Cintia Gómez BUSINESS SYSTEMS ANALYST PATHOLOGY-INTERFACED Final R esult [facility] [address] [place] [address] * VITAMIN D, 25-HYDROXY, TOTAL, IMMUNOASSAY (08/19/2016 2:08 PM EDT) VIT D, 25-OH, TOTAL 52 >29 ng/mL [facility] Comment: Vitamin D Status ??25-OH Vitamin D: Deficiency: ? <20 ng/mL Insufficiency: ? 20-29 ng/mL Optimal: ?> or = 30 ng/mL 08/19/2016 2:08 PM EDT 08/19/2016 2:08 PM EDT Narrative [facility] - 08/19/2016 5:09 PM EDT not fasting Patient's primary care provider is: ??N/A Testing performed at: [facility], [address] [place] [address], [address], Lens Cementer: Vikas Cyr M.D. us Abdi Solo MD LABORATORY Final Result Performing Organization Address City/State/[facility] Co de Phone Number [address] [address] DIRECTOR VIKAS CYR M.D. * ENT OTORHINOLARYNGOLOGICAL TEST/PROCEDURE, UNSPECIFIED (07/26/2016) Narrative Transcriptions Provider, Unknown - 08/13/2016 12:00 AM EDT us Unknown Provider PROCEDURES Final Result * FOOT 3 VIEW - LEFT (03/05/2016 3:35 PM EDT) Only the most recent of3 resultswithin the time period is included. RADIOLOGY REPORT [facility] Department of Radiology [address] [place] [address], [id number] Name: MANNY STEIN : 63 Date of Service: 03/05/16 1136 Acct Number: [id number] Order Number: ??[id number] ?Location: [facility] Report Number: [id number] ?Service: REG REF/ Requesting Physician: Xavi Ojeda (THU) Category: ORTHOPEDIC RADIOLOGY ??[facility] Exam: FOOT 3 VIEWS ?? Left Signs/Symptoms: NONDISPLACED FX DISTAL THIRD METATARSAL Report Status: ---Signed--- Study:3 views of left foot Comparison:Decem 2014 Findings:There is healed fracture deformity with callus formation of the third and fourth metatarsal tarsal bones fragments are anatomically aligned and there is good callus formation Impression:Heale d fracture of the third and fourth metatarsal bone on the left Date/Time of Dictation: 03/05/16 1538 Solution Coordinator (if applicable): Approved By Attending Radiologist: Jose Craven 03/05/16 1538 [facility] Department of Radiology [address] [place] [address], [address] ? [phone] ? [facility] Anatomical Region Laterality Modality Other 03/05/2016 3:35 PM EDT Narrative 03/05/2016 3:39 PM EDT Reason for Study/History: Department of Radiology TEST(S) PROCESSED BY [facility] XRAY Xavi Ojeda PA IMAGING-[facility] Final Result * UNSPECIFIED MAJOR PROCEDURE (11/10/2015) Narrative Transcriptions Mack Mccarthy - 11/13/2015 12:00 AM EST Mack Mccarthy PROCEDURES Final Result * HELICOBACTER PYLORI UREA BREATH TEST (UBIT-(R)) (10/28/2015 8:57 AM EST) Urea Breath Test, Infra-Red (Ubit) NOT DETECTED NOT DETECTED [facility] Comment: {HELICOBACTER PYLORI, UREA BREATH TEST {[id number]) Antimicrobials, proton pump inhibitors, and bismuth preparations are known to suppress H. pylori, and ingestion of these prior to H. pylori diagnostic testing may lead to false negative results. If clinically indicated, the test may be repeated on a new specimen obtained two weeks after discontinuing treatment. 10/28/2015 8:57 AM EST 10/28/2015 2:27 PM EST Narrative Resulting Agency Comment [id number] John Oviedo MD LABORATORY Final Resu lt [facility] [address] [place] [address] * CT - THORAX W/O CONTRAST THEN W/CONTRAST AND MORE SECTIONS (10/22/2015) Only the most recent of2 resultswithin the time period is included. 10/22/2015 Narrative Transcriptions Abdi Solo MD - 11/05/2015 12:00 AM EST Abdi Solo MD CONTRAST STUDY- OTHER Final Re sult * XRAY FOOT COMPLETE MIN 3 VWS - LEFT (DX: FOOT PAIN *NO INJURY* M25.572/ 719.47) (TODAY) FC (10/06/2015 1:22 PM EST) Anatomical Region Laterality Modality LOWER EXTREMITY Radiographic Betsy ging 10/09/2015 10:0 0 AM EST Narrative 10/09/2015 10:00 AM EST Left foot, 3 views There is a nondisplaced transverse fracture of the distal shaft of the third metatarsal. Also noted is posterior and plantar calcaneal spurring. Conclusion: Nondisplaced fracture of the distal third metatarsal Procedure Note Ami Mott MD - 10/09/2015 Left foot, 3 views There is a nondisplaced transverse fracture of the distal shaft of the third metatarsal. Also noted is posterior and plantar calcaneal spurring. Conclusion: Nondisplaced fracture of the distal third metatarsal Karen Luciano BUSINESS SYSTEMS ANALYST IMG XRAY NO CONTRAST ORDERABLES Final Result * DERMATOPHAGOIDESPTERONYSSINUS (D1) IGE (09/01/2015 2:10 PM EDT) Only the most recent of2 resultswithin the time period is included. Dermatophagoidespteronyssinu s (D1) IgE <0.35 kU/L [facility] Comment:{DERMATOPHAGOIDES PT ERONYSSINUS (D1) IGE {[id number]) Dermatophagoides pteronyssin us (D1) Class 0 [facility] Comment:{CLASS {[id number]) 09/01/2015 2:10 PM EDT 09/01/2015 7:51 PM EDT Narrative Resulting Agency Comment [id number] us John Oviedo MD LABORATORY Final Resu lt Performing Organization Address [facility] Co de Phone Number [facility] [address] [place] [address] * DERMATOPHAGOIDES FARINAE (D2) IGE (09/01/2015 2:10 PM EDT) Only the most recent of2 resultswithin the time period is included. Dermatophagoides Farinae(D2) IgE <0.35 kU/L [facility] Comment:{DERMATOPHAGOIDES FA RINAE (D2) IGE {[id number]) Dermatophagoides Farinae(D2) Class 0 [facility] Comment:{CLASS {[id number]) 09/01/2015 2:10 PM EDT 09/01/2015 7:51 PM EDT Narrative Resulting Agency Comment [id number] us John Oviedo MD LABORATORY Final Resu lt Performing Organization Address City/[facility]/ZIP Co de Phone Number [facility] [address] [place] [address] * (ABNORMAL) HELICOBACTER PYLORI IGGANTIBODY (08/13/2015 2:50 PM EDT) Helicobacter pylori Ab.IgG POSITIVE (A) NEGATIVE [facility] Comment: {HELICOBACTER PYLORI ANTIBODY (IGG) {[id number]) Measurement of antibodies to H. pylori is not recommended for the diagnosis of active infection. The [place] [employer] and the [place] [employer] recommend either the urea breath test or the fecal antigen test for diagnosis and confirmation of eradication in cases of suspected or proven H. pylori infection. Effective September 15, 2015 Helicobacter(H) pylori antibody testing ??will no longer be offered at [email or web address]. We are pleased to offer ACG and AGA recommended testing for ACTIVE infection with either H. pylori Stool Antigen (test code 67679[X]) or H. pylori Urea Breath Test (53994[X] for adult patients and 76036 for pediatric patients). For more information on testing for ACTIVE H. pylori infection, please see [email or web address] 08/13/2015 2:50 PM EDT 08/14/2015 12:47 AM EDT Narrative Resulting Agency Comment [id number] us John Oviedo MD LABORATORY Final Resu lt [facility] [address] [place] [address] * ALLERGEN (IGE), CONV. RAST-EDWINA CAMPUZANO (672) (08/13/2015 2:50 PM EDT) Edwina Campuzano IgE <0.10 <0.35 kU/L [facility] Comment:{ALLERGEN SPECIFIC I GE EDWINA SHGBRK(C.OVATA) {[id number]) Edwina Campuzano Class 0 [facility] Comment: {CLASS {[id number]) This conventional RAST uses allergen-coated discs from several suppliers and an isotope-labeled anti-IgE. IgE Conc (kU/L) ? Class ?Interpretation <0.10 ? 0 ?Below Detection 0.10-0.34 ? 0/1 ?Equivocal/Borderline 0.35-0.69 ? 1 ?Low Positive 0.70-3.49 ? 2 ?Moderate Positive 3.50-17.49 ?3 ?Positive >17.49 ?4 ?Strong Positive *This test was developed and its performance characteristics determined by [employer]. It has not been cleared or approved by the U.S. Food and Drug Administration. 08/13/2015 2:50 PM EDT 08/14/2015 12:47 AM EDT Narrative Resulting Agency Comment [id number] John Oviedo MD LABORATORY Final Resu lt Performing Organization Address [facility] de Phone Number [facility] [address] [place] [address] * SHEEP SORREL (W18) IGE (08/13/2015 2:50 PM EDT) Sheep [place] IgE <0.35 kU/L [facility] Comment:{SHEEP SORREL (W18) IGE {[id number]) Sheep [place] (W18) Class 0 [facility] Comment:{CLASS {[id number]) 08/13/2015 2:50 PM EDT 08/14/2015 12:47 AM EDT Narrative Resulting Agency Comment [id number] us John Oviedo MD LABORATORY Final Resu lt Performing Organization Address [facility] de Phone Number [facility] [address] [place] [address] * FLETCHER'S QUARTER (GOOSE FOOT) (W10) IGE (08/13/2015 2:50 PM EDT) Fletcher's Quarters ([place]) (W10) IgE <0.35 kU/L [facility] Comment:{FLETCHER'S QUARTERS (GO OSE FOOT) (W10) IGE {[id number]) [place] ([place]) (W10) Class 0 [facility] Comment:{CLASS {[id number]) 08/13/2015 2:50 PM EDT 08/14/2015 12:47 AM EDT Narrative Resulting Agency Comment [id number] us John Oviedo MD LABORATORY Final Resu lt Performing Organization Address [facility] Co de Phone Number [facility] [address] [place] [address] * ALLISON GRASS (G10) IGE (08/13/2015 2:50 PM EDT) Allison Grass (G10) IgE <0.35 kU/L [facility] Comment:{ALLISON GRASS (G10) IGE {[id number]) Allison Grass (G10) Class 0 [facility] Comment:{CLASS {[id number]) 08/13/2015 2:50 PM EDT 08/14/2015 12:47 AM EDT Narrative Resulting Agency Comment [id number] us John Oviedo MD LABORATORY Final Resu lt Performing Organization Address [facility] Co de Phone Number [facility] [address] [place] [address] * GIANT RAGWEED (TALL) (W3)IGE (08/13/2015 2:50 PM EDT) Ragweed Giant IgE <0.35 kU/L [facility] Comment:{GIANT RAGWEED (TALL ) (W3) IGE {[id number]) Giant Ragweed (Tall) (W3) Class 0 [facility] Comment:{CLASS {[id number]) 08/13/2015 2:50 PM EDT 08/14/2015 12:47 AM EDT Narrative Resulting Agency Comment [id number] us John Oviedo MD LABORATORY Final Resu lt Performing Organization Address [facility] Co de Phone Number [facility] [address] [place] [address] * ELM (T8) IGE (08/13/2015 2:50 PM EDT) Elm (T8) IgE <0.35 kU/L [facility] Comment:{ELM (T8) IGE {[id number]) Elm (T8) Class 0 [facility] Comment:{CLASS {[id number]) 08/13/2015 2:50 PM EDT 08/14/2015 12:47 AM EDT Narrative Resulting Agency Comment [id number] John Oviedo MD LABORATORY Final Resu lt Performing Organization Address [facility] Co de Phone Number [facility] [address] [place] [address] * DOG DANDER (E5) IGE (08/13/2015 2:50 PM EDT) Dog Dander (E5) IgE <0.35 kU/L [facility] Comment:{DOG DANDER (E5) IGE {[id number]) Dog Dander (E5) Class 0 [facility] Comment:{CLASS {[id number]) 08/13/2015 2:50 PM EDT 08/14/2015 12:47 AM EDT Narrative Resulting Agency Comment [id number] John Oviedo MD LABORATORY Final Resu lt Performing Organization Address [facility] de Phone Number [facility] [address] [place] [address] * COMMON RAGWEED (SHORT) (W1) IGE (08/13/2015 2:50 PM EDT) Common Ragweed (Short)(W1) IgE <0.35 kU/L [facility] Comment:{COMMON RAGWEED (AJ RT) (W1) IGE {[id number]) Common Ragweed (Short)(W1) Class 0 [facility] Comment:{CLASS {[id number]) 08/13/2015 2:50 PM EDT 08/14/2015 12:47 AM EDT Narrative Resulting Agency Comment [id number] us John Oviedo MD LABORATORY Final Resu lt Performing Organization Address [facility] Co de Phone Number [facility] [address] [place] [address] * COCKROACH (I6) IGE (08/13/2015 2:50 PM EDT) Cockroach (I6) IgE <0.35 kU/L [facility] Comment:{COCKROACH (I6) IGE {[id number]) Cockroach (I6) Class 0 [facility] Comment:{CLASS {[id number]) 08/13/2015 2:50 PM EDT 08/14/2015 12:47 AM EDT Narrative Resulting Agency Comment [id number] us John Oviedo MD LABORATORY Final Resu lt Performing Organization Address [facility] de Phone Number [facility] [address] [place] [address] * CLADOSPORIUM HERBARUM (M2) IGE (08/13/2015 2:50 PM EDT) Cladosporium Herbarum (M2) IgE <0.35 kU/L [facility] Comment:{CLADOSPORIUM HERBAR UM (M2) IGE {[id number]) Cladosporium Herbarum(M2) Class 0 [facility] Comment:{CLASS {[id number]) 08/13/2015 2:50 PM EDT 08/14/2015 12:47 AM EDT Narrative Resulting Agency Comment [id number] us John Oviedo MD LABORATORY Final Resu lt Performing Organization Address [facility] Co de Phone Number [facility] [address] [place] [address] * BIRCH (T3) IGE (08/13/2015 2:50 PM EDT) Birch (T3) IgE <0.35 kU/L [facility] Comment:{BIRCH (T3) IGE {[id number]) Birch (T3) Class 0 [facility] Comment:{CLASS {[id number]) 08/13/2015 2:50 PM EDT 08/14/2015 12:47 AM EDT Narrative Resulting Agency Comment [id number] us John Oviedo MD LABORATORY Final Resu lt Performing Organization Address [facility] de Phone Number [facility] [address] [place] [address] * BERMUDA GRASS (G2) IGE (08/13/2015 2:50 PM EDT) [place] Grass (G2) IgE <0.35 kU/L [facility] Comment:{BERMUDA GRASS (G2) IGE {[id number]) [place] Grass (G2) Class 0 [facility] Comment:{CLASS {[id number]) 08/13/2015 2:50 PM EDT 08/14/2015 12:47 AM EDT Narrative Resulting Agency Comment [id number] us John Oviedo MD LABORATORY Final Resu lt Performing Organization Address [facility] de Phone Number [facility] [address] [place] [address] * ASPERGILLUS FUMIGATUS(M3) IGE (08/13/2015 2:50 PM EDT) Aspergillus Fumigatus (M3) IgE <0.35 kU/L [facility] Comment:{ASPERGILLUS FUMIGAT US (M3) IGE {[id number]) Aspergillus Fumigatus(M3) Class 0 [facility] Comment:{CLASS {[id number]) 08/13/2015 2:50 PM EDT 08/14/2015 12:47 AM EDT Narrative Resulting Agency Comment [id number] us John Oviedo MD LABORATORY Final Resu lt Performing Organization Address [facility] de Phone Number [facility] [address] [place] [address] * ALTERNARIA ALTERNATA (M6)IGE (08/13/2015 2:50 PM EDT) Alternaria Alternata (M6) IgE <0.35 kU/L [facility] Comment:{ALTERNARIA ALTERNAT A (M6) IGE {[id number]) Alternaria Alternata (M6) Class 0 [facility] Comment:{CLASS {[id number]) 08/13/2015 2:50 PM EDT 08/14/2015 12:47 AM EDT Narrative Resulting Agency Comment [id number] John Oviedo MD LABORATORY Final Resu lt Performing Organization Address [facility] de Phone Number [facility] [address] [place] [address] * MAPLE (BOX ELDER) (T1) IGE (08/13/2015 2:50 PM EDT) Maple ([place]) (T1) IgE <0.35 kU/L [facility] Comment:{MAPLE (BOX ELDER) ( T1) IGE {[id number]) [place] ([place]) (T1) Class 0 [facility] Comment:{CLASS {[id number]) 08/13/2015 2:50 PM EDT 08/14/2015 12:47 AM EDT Narrative Resulting Agency Comment [id number] John Oviedo MD LABORATORY Final Resu lt Performing Organization Address [facility] de Phone Number [facility] [address] [place] [address] * OAK (T7) IGE (08/13/2015 2:50 PM EDT) [place] (T7) IgE <0.35 kU/L [facility] Comment:{OAK (T7) IGE {[id number]) [place] (T7) Class 0 [facility] Comment:{CLASS {[id number]) 08/13/2015 2:50 PM EDT 08/14/2015 12:47 AM EDT Narrative Resulting Agency Comment [id number] us John Oviedo MD LABORATORY Final Resu lt Performing Organization Address [facility] Co de Phone Number [facility] [address] [place] [address] * WHITE GERALD (T15) IGE (08/13/2015 2:50 PM EDT) White Gerald (T15) IgE <0.35 kU/L [facility] Comment:{WHITE [place]ERALD (T15) IGE {[id number]) White [place] (T15) Class 0 [facility] Comment:{CLASS {[id number]) 08/13/2015 2:50 PM EDT 08/14/2015 12:47 AM EDT Narrative Resulting Agency Comment [id number] us John Oviedo MD LABORATORY Final Resu lt Performing Organization Address [facility] Co de Phone Number [facility] [address] [place] [address] * GAGE GRASS (G6) IGE (08/13/2015 2:50 PM EDT) [place] Grass (G6) IgE <0.35 kU/L [facility] Comment:{GAGE GRASS (G6) IGE {[id number]) [place] Grass (G6) Class 0 [facility] Comment:{CLASS {[id number]) 08/13/2015 2:50 PM EDT 08/14/2015 12:47 AM EDT Narrative Resulting Agency Comment [id number] us John Oviedo MD LABORATORY Final Resu lt Performing Organization Address City/[facility] de Phone Number [facility] [address] [place] [address] * CAT EPITHELIUM ANDDANDER (E1) IGE (08/13/2015 2:50 PM EDT) Cat Dander (E1) IgE <0.35 kU/L [facility] Comment:{CAT DANDER (E1) IGE {[id number]) Cat Dander (E1) Class 0 [facility] Comment:{CLASS {[id number]) 08/13/2015 2:50 PM EDT 08/14/2015 12:47 AM EDT Narrative Resulting Agency Comment [id number] us John Oviedo MD LABORATORY Final Resu lt Performing Organization Address [facility] de Phone Number [facility] [address] [place] [address] * IGE, SERUM (08/13/2015 2:50 PM EDT) IgE 13 <LJ=892 kU/L [facility] Comment:{IMMUNOGLOBULIN E {[id number]) 08/13/2015 2:50 PM EDT 08/14/2015 12:47 AM EDT Narrative Resulting Agency Comment [id number] us John Oviedo MD LABORATORY Final Resu lt Performing Organization Address [facility] de Phone Number [facility] [address] [place] [address] * (ABNORMAL) CULTURE, URINE, ROUTINE (06/26/2015 5:24 PM EDT) [place] count (Urine)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 Solo Patient's primary care provider is: ??Abdi Solo us Abdi Solo MD LABORATORY Final Result [facility] * PAP TEST (06/12/2014 3:20 AM EDT) PAP Smear [id number] 06/20/2014 6:33 PM EDT [facility] Comment: GENERAL CATEGORY: OTHER (See Comment). . SPECIMEN ADEQUACY: Satisfactory for evaluation. Transformation zone component absent. . COMMENT: NEGATIVE FOR INTRAEPITHELIAL LESION. Endometrial cells, cytologically benign, are present on the Pap slide from this patient, who is greater than 40 years of age. ??Please correlate clinically. ??This finding is common during the first half of a normal menstrual cycle, and infrequently indicates a significant abnormality. ??Please interpret in light of available clinical information. See page 352 of the AJOG article linked at http://www.asccp.org/ConsensusGuidelines/AbnormalCervicalScreeningTests/ tabid/[email or web address]/Default.aspx for more information. APHLP/APHLP Specimen(s)/NEUROPSYCHOLOGY DIVISION CHIEF Information: THINPREP CERVICAL/ENDOCERVICAL, 20 cc of fluid Total # of Slides/Specimen: 1 ? RELATED LABORATORY RESULTS Ord Date: 06/12/2014 Test Name ? Collected ? Result ?Abnormal ?Range HPV high ?06/12/2014 ?Negative ?Negative risk The slide was processed by the ThinPrep Imaging System, and was rescreened or reviewed by a sewing techniques demonstrator Screened by: ?? MARGARET GOULD, ? SIGNED OUT BY ELECTRONIC [employer] ?SIGNATURE ?Signed Out by: MARGARET GOULD, ?[employer] ?Date Reported: 06/20/2014 MAGDA LÓPEZ ?[id number] ?GYNECOLOGIC CYTOLOGY REPORT Printed: 06/20/2014 5:27 PM ?Page 1 of 1 06/12/2014 3:20 AM EDT 06/12/2014 3:20 AM EDT Diane Blanton MD PATHOLOGY Final R esult Performing Organization Address City/[facility] Co de Phone Number [facility] * HPV HIGH RISK (06/12/2014 3:20 AM EDT) Human Papillomavirus (HPV) DNA, High Risk Negative Negative 06/20/2014 5:28 PM EDT [facility] 06/12/2014 3:20 AM EDT 06/12/2014 3:20 AM EDT Diane Blanton MD LABORATORY Final R esult [facility] * SCREENING MAMMOGRAPHY DIGITAL (06/12/2014 12:00 AM EDT) ATTACHED DOCUMENT 06/12/2014 12:00 AM EDT Anatomical Region Laterality Modality Other 06/12/2014 06/12/2014 Narrative Transcriptions Abdi Solo MD - 05/22/2015 12:00 AM EDT Abdi Solo MD IMAGING-ATRIUS Final Result * XR CHEST, 2 VIEWS, FRONTAL AND LATERAL; (03/06/2014 2:44 PM EDT) Anatomical Region Laterality Modality Other 03/06/2014 2:44 PM EDT 03/06/2014 2:44 PM EDT Abdi Solo MD IMAGING - NO INBASKET RTG Mary Ann l Result * (ABNORMAL) LIPID PROFILE (03/06/2014 2:28 PM EDT) Cholesterol 216(H) <200 mg/dL 03/06/2014 4:48 PM EDT [facility] Triglyceride 88 <150 mg/dL 03/06/2014 4:48 PM EDT [facility] Cholesterol.in HDL 62 >40 mg/dL 03/06/2014 4:48 PM EDT [facility] Comment: NCEP GUIDELINES Desireable >60 mg/dL Borderline 40-59 mg/dL ?? Undesirable <40 mg/dL LDL 136(H) <130 mg/dL 03/06/2014 4:48 PM EDT [facility] Chol/HDL Ratio 3 0 - 5 CALC 03/06/2014 4:48 PM EDT [facility] 03/06/2014 2:28 PM EDT 03/06/2014 2:28 PM EDT Narrative [facility] - 03/06/2014 12:00 AM EDT Patient's primary care provider is: ??Abdi Solo Abdi Solo MD LABORATORY Final Result [facility] * EKG (03/06/2014) ATTACHED DOCUMENT 03/06/2014 12:00 AM EDT 03/06/2014 03/06/2014 Narrative Transcriptions Abdi Solo MD - 05/22/2015 12:00 AM EDT us Abdi Solo MD CARDIOVASCULAR-NO INBASKET RTG Final Result * OPHTHALMOLOGICAL TEST/PROCEDURE, UNSPECIFIED (04/25/2013) us Unknown Provider PROCEDURES Final Result Visit Diagnoses Diagnosis Start Date Other unknown and unspecified cause of morbidity or mortality 11/29/2013 Asymptomatic varicose veins 12/13/2013 Abdominal pain, epigastric 12/13/2013 Anxiety state, unspecified 12/13/2013 Insomnia, unspecified 12/13/2013 Other diseases of nasal cavity and sinuses(478.19) Other diseases of nasal cavity and sinuses 12/13/2013 Unspecified hearing loss 12/13/2013 Pain in limb 12/13/2013 Other diseases of nasal cavity and sinuses(478.19) Other diseases of nasal cavity and sinuses 01/08/2014 Cough 03/06/2014 Other diseases of nasal cavity and sinuses(478.19) Other diseases of nasal cavity and sinuses 03/06/2014 Anxiety state, unspecified 03/06/2014 Insomnia, unspecified 03/06/2014 Abdominal pain, epigastric 03/06/2014 Esophageal reflux 03/06/2014 Breast screening, unspecified 03/06/2014 Pain in joint, multiple sites 03/06/2014 Screening for lipoid disorders 03/06/2014 Anxiety state, unspecified 03/06/2014 Unspecified hearing loss 03/06/2014 Asymptomatic varicose veins 03/06/2014 Esophageal reflux 03/06/2014 Chest pain, unspecified 03/06/2014 Need for prophylactic vaccination against Streptococcus pneumoniae (pneumococcus) Need for prophylactic vaccination against streptococcus pneumoniae (pneumococcus) 03/06/2014 Routine general medical examination at a health care facility 03/06/2014 Routine gynecological examination 06/12/2014 Other screening breast examination 06/12/2014 Other screening mammogram 06/12/2014 Screening for malignant neoplasm of the cervix 06/12/2014 Other disorder of menstruation and other abnormal bleeding from female genital tract 06/12/2014 Unspecified symptom associated with female genital organs 06/12/2014 Abdominal pain, epigastric 06/12/2014 Esophageal reflux 06/12/2014 Other diseases of nasal cavity and sinuses(478.19) Other diseases of nasal cavity and sinuses 06/12/2014 Cough 06/12/2014 Pain in joint, lower leg 06/12/2014 Special screening for malignant neoplasms, colon 06/12/2014 Need for prophylactic vaccination with combined [id number] (DTP) vaccine 06/12/2014 Pain in joint, multiple sites 06/12/2014 Unspecified vitamin D deficiency 06/12/2014 Screening examination for pulmonary tuberculosis 06/12/2014 Unspecified vitamin D deficiency 06/13/2014 Abnormal mammogram, unspecified 06/13/2014 Other specified counseling 09/05/2014 Unspecified vitamin D deficiency 09/11/2014 Dysuria 09/11/2014 Unspecified vitamin D deficiency 09/11/2014 Other allergy, other than to medicinal agents 09/11/2014 Need for prophylactic vaccination and inoculation against influenza 09/11/2014 Anxiety state, unspecified 09/11/2014 Esophageal reflux 09/11/2014 Anxiety state, unspecified 10/14/2014 Abdominal pain, epigastric 10/14/2014 Esophageal reflux 10/14/2014 Unspecified vitamin D deficiency 10/14/2014 Other allergy, other than to medicinal agents 10/16/2014 Other diseases of nasal cavity and sinuses(478.19) Other diseases of nasal cavity and sinuses 10/16/2014 Other diseases of nasal cavity and sinuses(478.19) Other diseases of nasal cavity and sinuses 12/17/2014 Other unknown and unspecified cause of morbidity or mortality 01/01/2015 Special screening for malignant neoplasms, colon 01/15/2015 Other diseases of nasal cavity and sinuses(478.19) Other diseases of nasal cavity and sinuses 02/05/2015 Other unknown and unspecified cause of morbidity or mortality 03/25/2015 Unspecified vitamin D deficiency 04/03/2015 Abnormal weight gain 04/10/2015 Benign neoplasm of colon 04/10/2015 Other allergy, other than to medicinal agents 04/10/2015 Unspecified hearing loss 04/10/2015 Pain in joint, lower leg 04/10/2015 Disturbance of skin sensation 04/10/2015 Asymptomatic varicose veins 04/10/2015 Cough 04/10/2015 Anxiety state, unspecified 04/10/2015 Abdominal pain, epigastric 04/10/2015 Unspecified sinusitis (chronic) 04/10/2015 Insomnia, unspecified 04/10/2015 Other diseases of nasal cavity and sinuses(478.19) Other diseases of nasal cavity and sinuses 04/10/2015 Esophageal reflux 04/10/2015 Unspecified vitamin D deficiency 04/10/2015 Left knee pain Pain in joint, lower leg 04/30/2015 Left knee pain Pain in joint, lower leg 04/30/2015 Neck pain Cervicalgia 06/04/2015 Knee pain, unspecified laterality 06/04/2015 Dysuria 06/26/2015 Vaginal discharge Leukorrhea, not specified as infective 06/26/2015 Vaginal discharge Leukorrhea, not specified as infective 06/26/2015 Dysmenorrhea 06/26/2015 Dysuria 06/26/2015 Routine gynecological examination 06/26/2015 Screening breast examination Breast screening, unspecified 06/26/2015 Routine history and physical examination of adult Routine general medical examination at a health care facility 06/26/2015 Deafness, unspecified laterality 06/26/2015 Sinus congestion Other diseases of nasal cavity and sinuses 06/26/2015 Varicose veins Asymptomatic varicose veins 06/26/2015 Insomnia Insomnia, unspecified 06/26/2015 Anxiety Anxiety state, unspecified 06/26/2015 Vitamin D deficiency 06/26/2015 Post-nasal drainage Unspecified sinusitis (chronic) 06/26/2015 Gastroesophageal reflux disease without esophagitis Esophageal reflux 06/26/2015 Colon polyps Benign neoplasm of colon 06/26/2015 Acute right eye pain Pain in or around eye 06/26/2015 Environmental allergies Other allergy, other than to medicinal agents 06/26/2015 Sinus congestion Other diseases of nasal cavity and sinuses 08/13/2015 PND (post-nasal drip) Postnasal drip 08/13/2015 Allergic rhinitis due to pollen 08/13/2015 Gastroesophageal reflux disease, esophagitis presence not specified 08/13/2015 Positive H. pylori titer Helicobacter pylori (H. pylori) 08/13/2015 Sinus congestion Other diseases of nasal cavity and sinuses 08/13/2015 PND (post-nasal drip) Postnasal drip 08/13/2015 Allergic rhinitis due to pollen 08/13/2015 Gastroesophageal reflux disease, esophagitis presence not specified 08/13/2015 Sinus congestion Other diseases of nasal cavity and sinuses 09/01/2015 PND (post-nasal drip) Postnasal drip 09/01/2015 Allergic rhinitis due to pollen 09/01/2015 Gastroesophageal reflux disease, esophagitis presence not specified 09/01/2015 Gastroesophageal reflux disease without esophagitis Esophageal reflux 09/01/2015 Post-nasal drainage Unspecified sinusitis (chronic) 09/01/2015 Non-allergic rhinitis Chronic rhinitis 09/01/2015 Cough 09/23/2015 Cough 09/23/2015 Need for influenza vaccination Need for prophylactic vaccination and inoculation against influenza 09/23/2015 Acute foot pain, left 10/06/2015 Acute foot pain, left 10/06/2015 Fracture Closed fracture of unspecified bone 10/09/2015 Abnormal CXR Other nonspecific abnormal finding of lung field 10/15/2015 Closed nondisplaced fracture of third metatarsal bone of left foot, initial encounter 10/15/2015 Gastroesophageal reflux disease without esophagitis Esophageal reflux 10/28/2015 Nondisplaced fracture of third metatarsal bone of left foot with routine healing, subsequent encounter 10/30/2015 Dysphagia, unspecified dysphagia 11/05/2015 Cough 11/05/2015 Nondisplaced fracture of third metatarsal bone of left foot with routine healing, subsequent encounter 11/19/2015 Hearing loss, unspecified laterality 06/08/2016 Cough 08/19/2016 Sinus congestion Other diseases of nasal cavity and sinuses 08/19/2016 Post-nasal drainage Unspecified sinusitis (chronic) 08/19/2016 Non-allergic rhinitis Chronic rhinitis 08/19/2016 Gastroesophageal reflux disease without esophagitis Esophageal reflux 08/19/2016 Screening cholesterol level Screening for lipoid disorders 08/19/2016 Vitamin D deficiency 08/19/2016 Anxiety Anxiety state, unspecified 08/19/2016 Routine history and physical examination of adult Routine general medical examination at a health care facility 08/19/2016 Cough 08/19/2016 Gastroesophageal reflux disease without esophagitis Esophageal reflux 08/19/2016 Colon polyps Benign neoplasm of colon 08/19/2016 Post-nasal drainage Unspecified sinusitis (chronic) 08/19/2016 Vitamin D deficiency 08/19/2016 Anxiety Anxiety state, unspecified 08/19/2016 Deafness, bilateral Unspecified hearing loss 08/19/2016 Screening cholesterol level Screening for lipoid disorders 08/19/2016 Need for immunization against influenza Need for prophylactic vaccination and inoculation against influenza 08/19/2016 Cough 09/01/2016 Sinus congestion Other diseases of nasal cavity and sinuses 09/01/2016 Post-nasal drainage Unspecified sinusitis (chronic) 09/01/2016 Non-allergic rhinitis Chronic rhinitis 09/01/2016 Cough 09/09/2016 Encounter for gynecological examination without abnormal finding Routine gynecological examination 10/06/2016 Dysmenorrhea 10/06/2016 Encounter for gynecological examination without abnormal finding Routine gynecological examination 10/06/2016 Perimenopause Symptomatic menopausal or female climacteric states 10/06/2016 Gastroesophageal reflux disease without esophagitis Esophageal reflux 10/29/2016 Decreased vision Unspecified visual loss 10/29/2016 Cough 10/29/2016 Gastroesophageal reflux disease, esophagitis presence not specified 10/29/2016 Dyspnea, unspecified type 10/29/2016 Gastroesophageal reflux disease, esophagitis presence not specified 11/02/2016 Dyspnea, unspecified type 11/02/2016 Examination of eyes and vision 12/30/2016 History of retinal detachment Personal history of other disorders of nervous system and sense organs 12/30/2016 Chronic cough Cough 02/18/2017 Gastroesophageal reflux disease, esophagitis presence not specified 02/18/2017 Deafness, bilateral Unspecified hearing loss 02/18/2017 Insomnia, unspecified type 02/18/2017 Varicose veins of both lower extremities 02/18/2017 Gastroesophageal reflux disease without esophagitis Esophageal reflux 02/18/2017 Vitamin D deficiency 02/18/2017 Polyp of colon, unspecified part of colon, unspecified type 02/18/2017 Non-allergic rhinitis Chronic rhinitis 02/18/2017 Anxiety Anxiety state, unspecified 02/18/2017 Perimenopausal disorder Unspecified menopausal and postmenopausal disorder 02/24/2017 Chronic cough Cough 03/29/2017 Gastroesophageal reflux disease, esophagitis presence not specified 03/29/2017 Upper respiratory tract infection, unspecified type 04/12/2017 Acute URI Acute upper respiratory infections of unspecified site 04/18/2017 Cough 04/18/2017 Acute pharyngitis, unspecified etiology 04/18/2017 Allergic rhinitis, unspecified allergic rhinitis trigger, unspecified rhinitis seasonality 04/18/2017 Postnasal drip 05/13/2017 Cough 05/13/2017 Multiple joint pain Pain in joint, multiple sites 06/14/2017 Chronic cough Cough 06/14/2017 Gastroesophageal reflux disease, esophagitis presence not specified 06/14/2017 Multiple joint pain Pain in joint, multiple sites 06/14/2017 Chronic cough Cough 06/14/2017 Gastroesophageal reflux disease, esophagitis presence not specified 06/14/2017 Deafness, bilateral Unspecified hearing loss 06/14/2017 Varicose veins of both lower extremities 06/14/2017 Insomnia, unspecified type 06/14/2017 Anxiety Anxiety state, unspecified 06/14/2017 Post-nasal drainage Unspecified sinusitis (chronic) 06/14/2017 Postnasal drip 06/23/2017 Cough 06/23/2017 Postnasal drip 07/12/2017 Perimenopausal disorder Unspecified menopausal and postmenopausal disorder 08/02/2017 Hearing loss, unspecified hearing loss type, unspecified laterality 09/07/2017 Postnasal drip 09/20/2017 Post-nasal drainage Unspecified sinusitis (chronic) 10/04/2017 Chronic cough Cough 10/04/2017 Screening for chlamydial disease Special screening examination for unspecified chlamydial disease 10/10/2017 Perimenopausal disorder Unspecified menopausal and postmenopausal disorder 10/10/2017 Screening for chlamydial disease Special screening examination for unspecified chlamydial disease 10/10/2017 Screen for STD (sexually transmitted disease) Screening examination for venereal disease 10/12/2017 Back pain, unspecified back location, unspecified back pain laterality, unspecified chronicity 10/12/2017 Abdominal pain, unspecified abdominal location 10/12/2017 Screening for hyperlipidemia Screening for lipoid disorders 10/12/2017 Need for influenza vaccination Need for prophylactic vaccination and inoculation against influenza 10/12/2017 Routine history and physical examination of adult Routine general medical examination at a health care facility 10/12/2017 Back pain, unspecified back location, unspecified back pain laterality, unspecified chronicity 10/12/2017 Abdominal pain, unspecified abdominal location 10/12/2017 Screen for STD (sexually transmitted disease) Screening examination for venereal disease 10/12/2017 Flu vaccine need Need for prophylactic vaccination and inoculation against influenza 10/12/2017 Screening for hyperlipidemia Screening for lipoid disorders 10/12/2017 Postnasal drip 12/02/2017 Chronic cough Cough 12/02/2017 Chronic cough Cough 12/02/2017 Gastroesophageal reflux disease, esophagitis presence not specified 12/02/2017 Chronic cough Cough 12/21/2017 Gastroesophageal reflux disease, esophagitis presence not specified 12/21/2017 Postnasal drip 12/21/2017 Perimenopausal disorder Unspecified menopausal and postmenopausal disorder 12/26/2017 Postnasal drip 01/09/2018 Chronic cough Cough 01/09/2018 Perimenopausal disorder Unspecified menopausal and postmenopausal disorder 01/19/2018 Polyp of colon, unspecified part of colon, unspecified type 01/24/2018 Screen for colon cancer Special screening for malignant neoplasms, colon 01/24/2018 Chronic cough Cough 02/13/2018 Gastroesophageal reflux disease, esophagitis presence not specified 02/13/2018 Chronic cough Cough 02/23/2018 Gastroesophageal reflux disease, esophagitis presence not specified 02/23/2018 Chronic cough Cough 03/11/2018 Gastroesophageal reflux disease, esophagitis presence not specified 03/11/2018 Chronic cough Cough 04/08/2018 Gastroesophageal reflux disease, esophagitis presence not specified 04/08/2018 Chronic cough Cough 04/10/2018 Postnasal drip 04/10/2018 Non-allergic rhinitis Chronic rhinitis 04/10/2018 Gastroesophageal reflux disease without esophagitis Esophageal reflux 06/14/2018 Hearing problem, unspecified laterality 09/05/2018 Chronic cough Cough 10/06/2018 Gastroesophageal reflux disease, esophagitis presence not specified 10/06/2018 Chronic cough Cough 10/07/2018 Gastroesophageal reflux disease, esophagitis presence not specified 10/07/2018 Chest pain, unspecified type 10/18/2018 Weight loss Loss of weight 10/18/2018 Screening for hypercholesterolemia Screening for lipoid disorders 10/18/2018 Chest pain, unspecified type 10/18/2018 Perimenopausal disorder Unspecified menopausal and postmenopausal disorder 10/18/2018 Chronic cough Cough 10/18/2018 Gastroesophageal reflux disease, esophagitis presence not specified 10/18/2018 Chest pain, unspecified type 10/18/2018 Weight loss Loss of weight 10/18/2018 Chronic left shoulder pain Pain in joint, shoulder region 10/18/2018 Routine history and physical examination of adult Routine general medical examination at a health care facility 10/18/2018 Screening for hypercholesterolemia Screening for lipoid disorders 10/18/2018 Immunization due Need for prophylactic vaccination and inoculation against unspecified single disease 10/18/2018 Chest pain, unspecified type 10/24/2018 Postnasal drip 10/31/2018 Chronic cough Cough 10/31/2018 Postnasal drip 11/07/2018 Chronic cough Cough 11/07/2018 Left shoulder pain, unspecified chronicity 12/13/2018 Left shoulder pain, unspecified chronicity 12/13/2018 Left arm pain Pain in limb 12/13/2018 Chest wall pain Painful respiration 12/13/2018 Left elbow pain Pain in joint, upper arm 12/13/2018 Left lateral epicondylitis Lateral epicondylitis of elbow 12/13/2018 Chest pain, unspecified type 12/19/2018 Neck pain Cervicalgia 12/26/2018 Neck pain Cervicalgia 12/26/2018 Left arm pain Pain in limb 12/26/2018 Chronic left shoulder pain Pain in joint, shoulder region 12/26/2018 Bilateral deafness Unspecified hearing loss 02/08/2019 History of retinal detachment Personal history of other disorders of nervous system and sense organs 02/08/2019 Encounter for ophthalmic examination and evaluation Examination of eyes and vision 02/08/2019 Disorder of refraction Unspecified disorder of refraction and accommodation 02/08/2019 Postnasal drip 03/21/2019 Chronic cough Cough 03/21/2019 Cough 06/13/2019 Pharyngitis, unspecified etiology 06/13/2019 Postnasal drip 08/22/2019 Chronic cough Cough 08/22/2019 Need for vaccination Need for prophylactic vaccination and inoculation against unspecified single disease 09/12/2019 Need for immunization against influenza Need for prophylactic vaccination and inoculation against influenza 09/12/2019 Cough 09/12/2019 Cough 10/18/2019 Chronic cough Cough 10/18/2019 Postnasal drip 10/18/2019 Non-allergic rhinitis Chronic rhinitis 10/18/2019 Hiatal hernia Diaphragmatic hernia without mention of obstruction or gangrene 10/18/2019 Weight loss Loss of weight 10/23/2019 Screening for hyperlipidemia Screening for lipoid disorders 10/23/2019 Routine history and physical examination of adult Routine general medical examination at a health care facility 10/23/2019 Screening for hyperlipidemia Screening for lipoid disorders 10/23/2019 Weight loss Loss of weight 10/23/2019 Postnasal drip 10/23/2019 Chronic cough Cough 10/23/2019 Gastroesophageal reflux disease, esophagitis presence not specified 10/23/2019 Well adult exam Routine general medical examination at a health care facility 10/23/2019 Perimenopausal disorder Unspecified menopausal and postmenopausal disorder 10/23/2019 Screening breast examination Breast screening, unspecified 10/23/2019 Postnasal drip 02/11/2020 Chronic cough Cough 02/11/2020 Chronic cough Cough 04/16/2020 Postnasal drip 04/16/2020 Hiatal hernia Diaphragmatic hernia without mention of obstruction or gangrene 04/16/2020 Gastroesophageal reflux disease, esophagitis presence not specified 04/16/2020 Postnasal drip 09/03/2020 Chronic cough Cough 09/03/2020 Chronic cough Cough 12/03/2020 Postnasal drip 12/03/2020 Hiatal hernia Diaphragmatic hernia without mention of obstruction or gangrene 12/03/2020 Non-allergic rhinitis Chronic rhinitis 12/03/2020 Encounter for ophthalmic examination and evaluation Examination of eyes and vision 04/22/2021 Presbyopia 04/22/2021 History of retinal detachment Personal history of other disorders of nervous system and sense organs 04/22/2021 Aphakia, right 04/22/2021 Encounter for ophthalmic examination and evaluation Examination of eyes and vision 12/22/2022 Presbyopia 12/22/2022 History of retinal detachment Personal history of other disorders of nervous system and sense organs 12/22/2022 History of retinal detachment Personal history of other disorders of nervous system and sense organs 07/04/2024 Care Teams [employer] Relationship Specialty Start Date End Date Unknown Pcp, Non Rmg PCP - General 10/13/22
--- OUTSIDE RECORDS SUMMARY | 2024-12-25 14:31 | XMS_ITS | Encounter Summary ---
Author Organization [facility] Address [address] [place] [address] Care Team Providers Care Director Of Informatics Name Role Phone Brad Solo MD Primary Care Provider [phone] Vandana Epps MD Primary Care Provider Unknown Pcp, Non [facility]mg Primary Care Provider Unava ilable Encounter Details Date Type Department Care Team (Late st Contact Info) Description 06/14/2017 Orders Only [facility] Adult Medicine [address] [place] [phone] Brad Solo MD [address] [address] Social History Tobacco Use Types Packs/Day Years [...] Office Visit [facility]. Optometry [address] [place] [phone] Agus Jacinto, OD [address] [place] [address] *est pt exam, no cl, no dm, 1 year follow up, aodv, *not elig. until 12/23/24, , 12/21* tommie, interp needed, aoir sent te over sent email to [email or web address] documented as of this encounter Procedures * Due to [place] Fliqz law, this organization might not be sharing negative HIV tests. Procedure Name Priority Date/Time Associated Diagnosis Comments ERYTHROCYTE SEDIMENTATION RATE (ESR) Routine 06/14/2017 11:32 AM EDT Multiple joint pain CBC INCLUDES DIFFERENTIAL AND PLATELET COUNT Routine 06/14/2017 11:32 AM EDT Multiple joint pain Chronic cough Gastroesophageal reflux disease, esophagitis presence not specified COMPREHENSIVE METABOLIC PANEL WITH GFR Routine 06/14/2017 11:32 AM EDT Multiple joint pain Chronic cough Gastroesophageal reflux disease, esophagitis presence not specified RHEUMATOID FACTOR, SERUM Routine 017 11:29 AM EDT Multiple joint pain C-REACTIVE PROTEIN (CRP) - INFLAMMATION Routine 06/14/2017 11:29 AM EDT Multiple joint pain NICHO SCREEN IFA W/REFLEX TO TITER/PATTERN IFA Routine 06/14/2017 11:29 AM EDT Multiple joint pain CYCLIC CITRULLINATEDPEPTIDE CCP AB IGG Routine 06/14/2017 11:29 AM EDT Multiple joint pain documented in this encounter Results * Due to [place] Fliq[employer] law, this organization might not be sharing negative HIV tests. * COMPREHENSIVE METABOLIC PANEL WITH GFR (06/14/2017 11:32 AM EDT) Glucose 89 65 - 99 mg/dl [facility] Urea Nitrogen Blood (BUN) 13 7 - 25 mg/dL [facility] Creatinine 0.71 0.50 - 1.16 mg/dL [facility] Sodium 139 136 - 145 mmo/L [facility] Potassium 4.3 3.5 - 5.3 mmol/L [facility] Chloride 102 98 - 107 mmo/L [facility] Calcium 9.7 8.5 - 10.4 mg/dL [facility] Protein Total (Serum) 7.2 6.0 - 8.3 g/dL [facility] Albumin 4.3 3.5 - 5.2 g/dL [facility] Globulin 3 2 - 4 G/DL [facility] Bilirubin Total 0.22 0.00 - 1.20 mg/dL [facility] Alkaline phosphatase 48 33 - 130 U/L [facility] AST (SGOT) 15 <38 U/L [facility] ALT (SGPT) 12 <47 U/L [facility] Carbon dioxide 27 23 - 33 mmol/L [facility] GFR 92 >60 ml/min [facility] Comment:If the patient is Af rican Chinese, please multiply result by 1.210 06/14/2017 11:3 2 AM EDT 06/14/2017 11:32 AM EDT Narrative [facility] - 06/14/2017 1:46 PM EDT Patient's primary care provider is: ??N/A Testing performed at: [facility], [address] [place] [address], [address], Turbine Subassembler: Vikas Leung M.D. Brad Solo MD LABORATORY Final Result [address] [address] DIRECTOR VIKAS LEUNG M.D. * (ABNORMAL) CBC INCLUDES DIFFERENTIAL AND PLATELET COUNT (06/14/2017 11:32 AM EDT) WBC 10.6 3.8 - 10.8 K/uL [facility] Neutrophils # 8.2(H) 1.5 - 7.8 K/uL [facility] Immature Granulocytes # 0.02 0.00 - 0.07 K/uL [facility] Comment:Cells included in IM M GRANS # : Metamyelocytes, Myelocytes and Promyelocytes. Lymphocytes # 1.5 0.9 - 3.9 K/uL [facility] Monocytes # 0.7 0.2 - 1.0 K/uL [facility] Eosinophils # 0.1 0.0 - 0.5 K/uL [facility] Basophils # 0.0 0.0 - 0.2 K/uL [facility] Neutrophils % 77.2 % [facility] Immature Granulocytes % 0.20 % [facility] Comment:Cells included in IM M GRANS % : Metamyelocytes, Myelocytes and Promyelocytes. Lymphocytes % 14.6 % [facility] Monocytes % 6.8 % [facility] Eosinophils % 1.0 % [facility] Basophils % 0.2 % [facility] RBC 4.00 3.80 - 5.10 M/uL [facility] Hemoglobin 11.9 11.7 - 15.5 g/dL [facility] Hematocrit 35.7 35.0 - 45.0 % [facility] MCV 89.3 80.0 - 100.0 fl [facility] MCH 29.8 27.0 - 33.0 pg [facility] MCHC 33.3 32.0 - 36.0 g/dL [facility] RDW 12.6 11.0 - 15.0 % [facility] PLT 264 140 - 400 K/uL [facility] 06/14/2017 11:3 2 AM EDT 06/14/2017 11:32 AM EDT Narrative [facility] - 06/14/2017 12:12 PM EDT Patient's primary care provider is: ??N/A Testing performed at: [facility], [address] [place] [address], [address], Turbine Subassembler: Vikas Leung M.D. us Brad Solo MD LAB SAME DAY RESULT Final Resu lt [address] [address] DIRECTOR VIKAS LEUNG M.D. * ERYTHROCYTE SEDIMENTATION RATE (ESR), ADRIANA (06/14/2017 11:32 AM EDT) Sedimentation Rate [place] (ESR) 17 0 - 20 mm/hr [facility] 06/14/2017 11:3 2 AM EDT 06/14/2017 11:32 AM EDT Narrative [facility] - 06/14/2017 1:54 PM EDT Patient's primary care provider is: ??N/A Testing performed at: [facility], [address] [place] [address], [address], Turbine Subassembler: Vikas Leung M.D. Brad Solo MD LAB SAME DAY RESULT Final Resu lt Performing Organization Address [facility] Co de Phone Number [address] [address] DIRECTOR VIKAS LEUNG M.D. * NCIHO SCREEN IFA W/REFLEX TO TITER/PATTERN IFA (06/14/2017 11:29 AM EDT) NICHO IFA NEGATIVE NEGATIVE [facility] Comment: NICHO IFA is a first line screen for detecting the presence of up to approximately 150 autoantibodies in various autoimmune diseases. A negative NICHO IFA result suggests NICHO-associated autoimmune diseases are not present at this time. Visit Physician FAQs for interpretation of all antibodies in the [place], prevalence, and association with diseases at http://education.[employer]/ faq/PYF545 06/14/2017 11:2 9 AM EDT 06/14/2017 8:03 PM EDT Narrative Resulting Agency Comment [id number] Brad Solo MD LABORATORY Final Result [facility] [address] [place] [address] * CYCLIC CITRULLINATEDPEPTIDE CCP AB IGG (06/14/2017 11:29 AM EDT) CCP Ab, IgG <16 UNITS [facility] Comment: Reference Range Negative: ?<20 Weak Positive: ? 20-39 Moderate Positive: ?? 40-59 Strong Positive: ? >59 06/14/2017 11:2 9 AM EDT 06/14/2017 8:03 PM EDT Narrative Resulting Agency Comment [id number] Brad Solo MD LABORATORY Final Result Performing Organization Address [facility] Co de Phone Number [facility] [address] [place] [address] * (ABNORMAL) RHEUMATOID FACTOR, SERUM (06/14/2017 11:29 AM EDT) Rheumatoid Factor (Quant) 26(H) <14 IU/mL [facility] 06/14/2017 11:2 9 AM EDT 06/14/2017 8:03 PM EDT Narrative Resulting Agency Comment [id number] Brad Solo MD LABORATORY Final Result Performing Organization Address [facility] de Phone Number [facility] [address] [place] [address] * C-REACTIVE PROTEIN (CRP) - INFLAMMATION (06/14/2017 11:29 AM EDT) C reactive protein <0.10 <0.80 mg/dL [facility] Comment: Please be advised that patients taking Carboxypenicillins may exhibit falsely decreased C-Reactive Protein levels due to an analytical interference in this assay. 06/14/2017 11:2 9 AM EDT 06/14/2017 8:03 PM EDT Narrative Resulting Agency Comment [id number] Brad Solo MD LABORATORY Final Result Performing Organization Address [facility] Co de Phone Number [facility] [address] [place] [address] documented in this encounter Visit Diagnoses Diagnosis Multiple joint pain Pain in joint, multiple sites Chronic cough Cough Gastroesophageal reflux disease, esophagitis presence not specified documented in this encounter Care Teams Director Of Informatics Relationship Specialty Start Date End Date Brad Solo MD PCP - General 12/30/14 07/27/17 Vandana Epps MD PCP - General Internal Medicine 07/28/17 10/12/22 Unknown Pcp, Non [facility] PCP - General 10/13/22 documented as of this encounter
--- OUTSIDE RECORDS SUMMARY | 2024-12-25 14:31 | XMS_ITS | Encounter Summary ---
Author Organization [facility] Address [address] [place] [address] Care Team Providers Care School Psychologist Assistant Name Role Phone Brad Solo MD Primary Care Provider [phone] Vandana Epps MD Primary Care Provider [phone] Unknown Pcp, Non [facility] Primary Care Provider Unava ilable Reason for Referral * CONSULT AND TREATMENT (Routine) - Closed Specialty Diagnoses / Procedures Referred By Contac t Referred To Contact Mammography Diagnoses screening Procedures REQUEST FOR MAMMOGRAPHY BILATERAL(DX: SCREENING FOR BREAST CANCER Z12.31)(1 YR FROM LAST) NON-FC Brad Solo MD Phone: tel: fax: [facility] Referral ID Status Reason Start Date Expiration Date V isits Requested Visits Authorized [id number] Closed Continuity of Care 08/19/2017 1 1 Encounter Details Date Type Department Care Team (Late st Contact Info) Description 08/24/2016 Orders Only [facility] Adult Medicine [address] [place] [phone] Brad Solo MD [address] [address] Social History Tobacco Use Types Packs/Day Years [...] Office Visit [facility]. Optometry [address] [place] [address] Agus Jacinto, OD [address] [place] [address] *est pt exam, no cl, no dm, 1 year follow up, aodv, *not elig. until 12/23/24, , 12/21* tommie, interp needed, aoir sent te over sent email to [email or web address] Scheduled Orders Name Type Priority Associated Diagnoses Orde r Schedule REQUEST FOR MAMMOGRAPHY BILATERAL(DX: SCREENING FOR BREAST CANCER Z12.31)(1 YR FROM LAST) NON-FC Imaging Routine Expected: 2016 documented as of this encounter Visit Diagnoses Not on filedocumented in this encounter Care Teams School Psychologist Assistant Relationship Specialty Start Date End Date Brad Solo MD PCP - General 12/30/14 07/27/17 Vandana Epps MD PCP - General Internal Medicine 07/28/17 10/12/22 Unknown Pcp, Non [facility] PCP - General 10/13/22 documented as of this encounter
== END 2024-12-25 14:41 | disposition home or self-care (01) ==
PROVIDERS: PCP Internal Medicine; Visit Provider Physician Assistant
DX: M17.12 Unilateral primary osteoarthritis, left knee (principal); M54.16 Radiculopathy, lumbar region
CPT/HCPCS: 20610; 99203

== ENCOUNTER → 2024-12-25 13:32 | Outpatient (BNV) | payer MEDICARE, MEDICAID, SELFPAY | PROVIDERS: Visit Provider Radiology Diagnostic Radiology | DX: M17.12 Unilateral primary osteoarthritis, left knee (principal) | CPT/HCPCS: 73560 ==

== ENCOUNTER 2025-02-19 09:32 | Outpatient (AMB) | payer MEDICARE, MEDICAID, SELFPAY ==
--- NOTE | 2025-02-19 09:39 | MHC.PC.OV ---
Intake Visit Reasons: AWV Allergies No Known Allergies [No Known Allergies*] Allergy (Verified 12/25/24 14:05) Tobacco use date assessed: 02/13/24 Dental Screening Dental Screen Date: 02/13/24 [facility] Medical History GERD (gastroesophageal reflux disease) Mild recurrent major depression Encounter for physical examination Chronic cough Blind right eye Developmental delay, mild Deaf mutism, congenital Allergic rhinitis Hypovitaminosis D Insomnia Depression Surgical History History of esophagogastroduodenoscopy (EGD) Hx of colonoscopy Family History Father Stroke Mother Diabetes Family/Other FH: mental illness Social History Housing: Other Alcohol intake: never Patient Tobacco Use Status: Never used Tobacco e-Cigarette/Vaping Use: Never Used Second Hand Smoke Exposure: No service: No Current occupational status: disabled Cognitive needs: No Hearing needs: Yes Vision needs: Yes Questionnaire Thrive Questionnaire Date Thrive assessed: 02/13/24 THAI-7 AMB Questionnaire THAI-7 Date THAI - 7 assessed: 02/13/24 Source: Developed by Drs. Tim Lester, Hafsa Parsons, Navjot Calvo and colleagues, with an educational yasmine from [employer]. Physical exam (Primary Care) Tobacco/Smoking Status: Tobacco use Status Tobacco use date assessed 02/13/24 11/19/24 08:34 Patient Tobacco Use Status Never used Tobacco 11/19/24 08:34 e-Cigarette/Vaping Use Never Used 11/19/24 08:34 Thrive Assessment: Date of Thrive Assessment Date Thrive assessed 02/13/24 11/19/24 08:34 Coding
[2025-02-19 09:40] VITALS: BP 120/82; BMI 22.1
--- NOTE | 2025-02-19 09:40 | AM.OFFVISMDC ---
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 Required: No Accompanied by: Staff Allergies No Known Allergies [No Known Allergies*] Allergy (Verified 02/19/25 09:53) Medication List - Last Reconciled 02/19/25 by Lisa Rey MD acetaminophen ER 650 mg PO Q4H PRN 30 days atorvastatin 20 mg PO BEDTIME 90 days cholecalciferol (vitamin D3) 50 mcg PO QAM 30 days dextran 70-hypromellose 0.1-0.3 % drps ophthalmic (eye) fluoxetine (Prozac) 10 mg PO DAILY fluticasone propionate 50 mcg/actuation 2 sprays intranasal DAILY 30 days loratadine-pseudoephedrine 10-240 mg ER (Claritin-D 24 Hour) 1 tab PO DAILY 30 days mirtazapine (Remeron) 30 mg PO BEDTIME olopatadine 0.2% (Pataday Once Daily Relief) 1 drp ophthalmic (eye) BEDTIME 7 days omeprazole 20 mg PO DAILY zolpidem 5 mg PO BEDTIME HPI HPI Comments History of Present Illness Details The patient is a 59-year-old female presenting for a Medicare annual wellness exam and vaccination update. She reports she received a tetanus vaccine in 2013 but requires an update. During the examination, she was informed that the current facility does not have the vaccine available, and she has been advised to visit a pharmacy for it. PPP handed to patient. [place] of care reviewed. Patient is deaf mute therefore mini-mental was not done. Medical history reveals completed mammography and colonoscopy screenings yielding normal results. Laboratory assessments conducted in November showed normal cholesterol, vitamin D, and blood glucose levels. The patient is currently on Tylenol, atorvastatin, vitamin D, Prozac, loratadine with pseudoephedrine, Remeron, omeprazole, and zolpidem. She has a history of anxiety and depression and is under psychiatric care. Family history is significant for paternal stroke and maternal diabetes. Socially, she does not smoke and independently performs daily living activities, though she reports incontinence. She handles her finances but requires help with her medication regimen. - Tetanus vaccination due; advised to obtain from a pharmacy - Mammogram performed in October, no abnormalities reported - Colonoscopy performed last year in January, results normal - Labs in November: Cholesterol, vitamin D, and glucose levels within normal range - No current need to repeat lab work due to satisfactory results [facility] Medical History GERD (gastroesophageal reflux disease) Mild recurrent major depression Encounter for physical examination Chronic cough Blind right eye Developmental delay, mild Deaf mutism, congenital Allergic rhinitis Hypovitaminosis D Insomnia Depression Surgical History History of esophagogastroduodenoscopy (EGD) Hx of colonoscopy Family History Father Stroke Mother Diabetes Family/Other FH: mental illness Social History Housing: Other Alcohol intake: never Patient Tobacco Use Status: Never used Tobacco e-Cigarette/Vaping Use: Never Used Second Hand Smoke Exposure: No service: No Current occupational status: disabled Cognitive needs: No Hearing needs: Yes Vision needs: Yes Questionnaire Medicare Wellness Checkup What gender do you identify with?: female During the past 4 weeks, how much have you been bothered by emotional problems such as feeling anxious, depressed, irritable, sad or downhearted, and blue?: slightly During the past 4 weeks, has your physical & emotional health limited your social activities with family, friends, neighbors, or groups?: not at all During the past 4 weeks, how much bodily pain have you generally had?: very mild pain During the past 4 weeks, was someone available to help you if you needed & wanted help?: yes, as much as I wanted During the past 4 weeks, what was the hardest physical activity you could do for at least 2 minutes?: moderate Can you get to places out of walking distance without help? (For eg., can you travel alone on buses, taxis or drive your car?): Yes Can you go shopping for groceries or clothes without someone's help?: Yes Can you prepare your own meals?: Yes Can you do your housework without help?: Yes Because of any health problems, do you need the help of another person with your personal care needs such as eating, bathing, dressing or getting around the house?: No Can you handle your own money without help?: Yes During the past 4 weeks, how would you rate your health in general?: good During the past 4 weeks how have things been going for you?: pretty well Are you having difficulties driving your car?: not applicable, I don't use a car Do you always fasten your seat belt when you are in a car?: yes, usually During past 4 weeks, have you been bothered by the following: never: Falling or dizzy when standing up, Sexual problems?, Trouble eating well?, Teeth or denture problems?, Problems using the telephone? and Tiredness or fatigue? Have you fallen 2 or more times in the past year?: No Are you afraid of falling?: No Are you a smoker?: no During the past 4 weeks, how many drinks of wine, beer, or other alcoholic beverages did you have?: no alcohol at all Do you exercise for about 20 minutes 3 or more times a week?: yes, some of the time Have you been given information to help with the following?: yes: Hazards in your house that might hurt you? and yes: Keeping track of your medications? How often do you have trouble taking medicines the way you have been told to take them?: I always take medicine as prescribed How confident are you that you can control & manage most of your health problems?: somewhat confident What is your race?: or origin or descent Activity of Daily Living Bathing - sponge bath, tub bath or shower: receives no assistance (gets in/out by self, if usual bathing means Dressing - getting clothes from closets & drawers, including inner/outer garments & fasteners.: gets clothes & gets completely dressed without help Toileting - going to the 'toilet room' for urine/bowel elimination & cleaning self/arranging clothes: goes to toilet room, cleans self, arranges clothes without help Transfer: moves in & out of bed and chair without help (may use support object) Continence: controls urination/bowel movements completely by self Feeding: feeds self without help Total Score: 0 Information obtained from: informant Using telephone: needs assistance Traveling: needs assistance Shopping: needs assistance Preparing meals: needs assistance Housework: independent Taking medicine: dependent Managing money: independent PHQ-9 Over the last 2 weeks, how often have you been bothered by any of the following problems? 1. Little interest or pleasure in doing things: not at all 2. Feeling down, depressed, or hopeless: not at all 3. Trouble falling or staying asleep, or sleeping too much: several days 4. Feeling tired or having little energy: not at all 5. Poor appetite or overeating: not at all 6. Feeling bad about yourself - or that you are a failure or have let yourself or your family down: not at all 7. Trouble concentrating on things, such as reading the newspaper or watching television: not at all 8. Moving or speaking so slowly that other people could have noticed. Or the opposite - being so fidgety or restless that you have been moving around a lot more than usual: not at all 9. Thoughts that you would be better off or of hurting yourself in some way: not at all Total score: 1 Depression Screening Interpretation: Negative Depression Screening Done: Yes 43299 - PHQ-9 Billing: Yes Source: Developed by Drs. Tim Lester, Hafsa Parsons, Navjot Calvo and colleagues, with an educational yasmine from [employer]. AUDIT C Alcohol Use Questionnaire (AUDIT-C) 1. How often do you have a drink containing alcohol?: Never Total Score: 0 Score Reviewed/Action Taken: No THAI-7 AMB Questionnaire THAI-7 Date THAI - 7 assessed: 02/19/25 Feeling nervous, anxious, or on edge: 0 = Not at all Not being able to stop or control worryin = Not at all Worrying too much about different things: 0 = Not at all Trouble relaxin = Not at all Being so restless that it is hard to sit still: 0 = Not at all Becoming easily annoyed or irritable: 0 = Not at all Feeling afraid as if something awful might happen: 0 = Not at all Total THAI-7 score (0-4 normal; 5-9 mild; 10-14 moderate; 15-21 severe): 0 Source: Developed by Drs. Tim Lester, Hafsa Parsons, Navjot Calvo and colleagues, with an educational yasmine from [employer]. THAI-7 Assessment Billing THIA-7 Assessment Tool: THAI-7 Assessment 00554 Thrive Questionnaire Date Thrive assessed: 02/19/25 I am a: Parent/Caregiver What is your living situation today?: I have a steady place to live Within the past 12 months, did the food you bought not last and you didn't have the money to get more?: Never true Within the past 12 months, did you worry whether your food would run out before you got money to buy more?: Never true Do you have trouble paying for medicines?: No Do you have trouble getting transportation to medical appointments?: No Do you have trouble paying your heating and electricity bill?: No Do you have trouble taking care of your child, family member or friend?: No Do you have trouble with day-to-day activities such as bathing, preparing meals, shopping, managing finances, etc.?: No Are you currently unemployed and looking for a job?: No Are you interested in more education?: No Please select the resources that you would like help with: None Currently or been in a relationship where the following occur: No concerns reported THRIVE Score: 0 Review of Systems Const All systems reviewed & are unremarkable except as noted in HPI and below Card Denies chest pain at rest, Denies chest pain with activity, Denies edema, Denies irregular heart rhythm, Denies claudication, Denies dyspnea, Denies dyspnea on exertion, Denies orthopnea, Denies paroxysmal nocturnal dyspnea and Denies slow heart rate Resp Denies cough, Denies dyspnea and Denies dyspnea on exertion GI Denies abdominal pain, Denies change in bowel habits, Denies excessive flatus, Denies nausea and Denies vomiting Physical Exam Vital Signs: Last Vital Signs BP 120/82 02/19/25 09:40 BMI result Body Mass Index 22.1 HEENT Ears: hearing grossly impaired Resp Effort & Inspection: normal respiratory effort Cardio Rate: regular rate Rhythm: regular rhythm Neuro General: gait normal Gait exam (Neuro): Normal gait present Motor exam (neuro): 5/5 motor strength present throughout Romberg Test: Negative Assessment & Plan Assessment & Plan (1) Encounter for Medicare annual wellness exam: Code(s): Z00.00 - Encounter for general adult medical examination without abnormal findings (2) Mild recurrent major depression: Code(s): F33.0 - Major depressive disorder, recurrent, mild Plan Today's session emphasized preventive health measures and management of chronic conditions. The patient is due for a tetanus booster, advised to be obtained from a pharmacy. Current lab results indicate no need for repetition, showcasing favorable control of cholesterol, vitamin D, and glucose levels. Psychiatric care continues involving treatment for anxiety and depression, with noted insomnia concerns intended for future psychiatric consultation. Current medications should be maintained under guidance, ensuring continued management of her conditions based on family history. Routine screenings have been completed successfully with no abnormalities, indicating current strategies remain effective. Calls for lifestyle adjustments, including more consistent medication intake with support, aligned with observed efficacy in maintaining overall well-being. Patient was informed and verbally consented to the use of an ambient scribe for clinic note documentation during this visit. I discussed the current treatment and management plan with the patient, emphasizing the importance of obtaining her tetanus vaccination from a pharmacy since it is not available in our office. We reviewed her psychiatric medication regimen and its relation to her insomnia, suggesting coordination with her psychiatrist for further management strategies. Her recent lab work and screenings were analyzed, and I explained the normal results of her prior mammogram and colonoscopy. During our discussion, I stressed maintaining current medication regimens to continue managing her conditions effectively and advised coordination with family or healthcare advocates to assist with medication adherence, considering family history risks. Patient Instructions: - Visit a pharmacy to receive your next tetanus vaccine booster. - Continue with your current medications as prescribed, and consult your psychiatrist for insomnia management. - No need to repeat recent lab work due to positive results, but maintain dietary and lifestyle habits. - Seek assistance with medications if you face challenges managing independently. - Contact your healthcare provider if you experience any new or worsening symptoms or health concerns. Quality Reporting (2020) Depression/Bipolar (159/160/161/177) PHQ-9: Total score: 1 Coding Level of Care Code Medicare First (G0438) Diagnoses Encounter for Medicare annual wellness exam Z00.00 Mild recurrent major depression F33.0 CPT Codes Advance Care Planning - Advance Care Planning discussion: On file, no changes ([id number]) Additional Codes PHQ-9 - 14043 - PHQ-9 Billing: Yes ([id number]) THAI-7 Assessment Billing - THAI-7 Assessment Tool: THAI-7 Assessment 37474 ([id number]) Time Spent (min) 33 Advance Care Planning Advance Care Planning discussion: On file, no changes Date of discussion: 02/19/25 Forms completed: Health Care Proxy Actual minutes spent: 2
== END 2025-02-19 10:05 | disposition home or self-care (01) ==
LOC: HO.HMCH 09:33
PROVIDERS: PCP Internal Medicine; Visit Provider Internal Medicine
DX: Z00.00 Encounter for general adult medical examination without abnormal findings (principal); F33.0 Major depressive disorder, recurrent, mild

== ENCOUNTER → 2025-02-19 09:32 | Outpatient (BNVA) | payer MEDICARE, MEDICAID, SELFPAY | PROVIDERS: PCP Internal Medicine; Visit Provider Internal Medicine | DX: Z00.00 Encounter for general adult medical examination without abnormal findings (principal); F33.0 Major depressive disorder, recurrent, mild | CPT/HCPCS: 96127 ==

== ENCOUNTER 2025-03-05 09:41 | Outpatient (AMB) | payer MEDICARE, MEDICAID, SELFPAY ==
--- NOTE | 2025-03-05 09:46 | A.OFFVIS_ITS ---
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 Patient was referred by Leora Chacko, last seen on December 25 where she reported radiation of pain from her lower back down the entire left lower extremity the involves numbness and tingling. At this visit she was also provided with an injection in the right knee. She also complains of right foot pain, i advised that her appointment today is for her lower back Although patient requested traffic checker , she does not understand ASL the phone call was terminated. 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 [facility] [place] a [place]. Does not seem to understand/comprehend me. Wears hearing aid. Does not know how to ASL. She points to lower back, more left side, down to ankle. She motions that she had left knee injection (from ortho) and that's better. No lumbar xrays on record. They deny falls at the prison. No PT yet. [facility] Medical History GERD (gastroesophageal reflux disease) Mild recurrent major depression Encounter for physical examination Chronic cough Blind right eye Developmental delay, mild Deaf mutism, congenital Allergic rhinitis Hypovitaminosis D Insomnia Depression Surgical History History of esophagogastroduodenoscopy (EGD) Hx of colonoscopy Family History Father Stroke Mother Diabetes Family/Other FH: mental illness Social History Housing: Other Alcohol intake: never Patient Tobacco Use Status: Never used Tobacco e-Cigarette/Vaping Use: Never Used Second Hand Smoke Exposure: No service: No Current occupational status: disabled Cognitive needs: No Hearing needs: Yes Vision needs: Yes Review of Systems Const All systems reviewed & are unremarkable except as noted in HPI and below Physical Exam Difficult to do an accurate exam. Patient indicated pain is all left side. No focal weakness seen. Able to stand and walk without assistance. Results Reviewed Results Reviewed: I reviewed records from the following: Ortho Assessment & Plan Assessment & Plan (1) Left leg pain: Code(s): M79.605 - Pain in left leg Category: Medical (2) Low back pain with left-sided sciatica: Code(s): M54.42 - Lumbago with sciatica, left side Category: Medical Qualifiers: Chronicity: chronic Back pain laterality: left Qualified Code(s): M54.42 - Lumbago with sciatica, left side; G89.29 - Other chronic pain Plan Patient unable to give me good history or exam. Let us evaluate further by obtaining some x-rays today. Lumbar x-ray to evaluate disc spaces. Hip x-ray to evaluate for hip joint arthritis. Consider referral to pain management for injections, depending on results. Assessment and plan discussed with patient, and patient was agreeable. All questions were answered thoroughly. Janine Ochoa MD, JALEN Board Certified, [place] Board of Physical Medicine and Rehabilitation (ABPMR) Board Certified, [place] Board of Electrodiagnostic Medicine (ABEM) Orders: Orders XR lumbar spine 2-3V Today M54.9 - Dorsalgia, unspecified XR hip LT min 2V Today M16.12 - Unilateral primary osteoarthritis, left hip XR hips LAURITA min 3V Today M25.559 - Pain in unspecified hip Coding Level of Care Code New Pt Level 4 (78817) Diagnoses Left leg pain M79.605 Chronic left-sided low back pain with left-sided sciatica M54.42; G89.29 Chronicity: chronic Back pain laterality: left
--- OUTSIDE RECORDS SUMMARY | 2025-03-05 11:01 | XMS_ITS | Encounter Summary ---
Author Organization [facility] Address [address] [place] [address] Care Team Providers Care Assistant Merchandise Manager Name Role Phone Brad Solo MD Primary Care Provider [phone] Vandana Epps MD Primary Care Provider [phone] Unknown Pcp, Non [facility] Primary Care Provider Unava ilable Encounter Details Date Type Department Care Team (Late Contact Info) Description 09/01/2015 Orders Only [facility] [address] [place] [id number] John Oviedo MD [facility] Allergy, Asthma & Immunology [address] [place] [id number] Social History Tobacco Use Types Packs/Day Years [...] Description 07/08/2025 8:30 AM EDT Office Visit [facility] [address] [place] [phone] Agus Jacinto, OD [address] [place] [address] *est pt exam, no cl, no dm, 1 year follow up, aodv, *not elig. until 12/23/24, , 12/21* tommie, interp needed, aoir sent te over sent email to [email or web address] documented as of this encounter Procedures * Due to [place] [employer] law, this organization might not be sharing [...] in this encounter Results * Due to [place] [employer] law, this organization might not be sharing negative HIV tests. * DERMATOPHAGOIDES FARINAE (D2) IGE (09/01/2015 2:10 PM EDT) Dermatophagoides Farinae(D2) IgE <0.35 kU/L [facility] Comment:{DERMATOPHAGOIDES FA RINAE (D2) IGE {[id number]) Dermatophagoides Farinae(D2) Class 0 [facility] Comment:{CLASS {[id number]) 09/01/2015 2:10 PM EDT 09/01/2015 7:51 PM EDT Narrative Resulting Agency Comment [id number] us John Oviedo MD LABORATORY Final Resu lt [facility] [address] [place] [address] * DERMATOPHAGOIDESPTERONYSSINUS (D1) IGE (09/01/2015 2:10 PM EDT) Dermatophagoidespteronyssinu s (D1) IgE <0.35 kU/L [facility] Comment:{DERMATOPHAGOIDES PT ERONYSSINUS (D1) IGE {[id number]) Dermatophagoides pteronyssin us (D1) Class 0 [facility] Comment:{CLASS {[id number]) 09/01/2015 2:10 PM EDT 09/01/2015 7:51 PM EDT Narrative Resulting Agency Comment [id number] us John Oviedo MD LABORATORY Final Resu lt [facility] [address] [place] [address] documented in this encounter Visit Diagnoses Diagnosis Sinus congestion Other diseases of nasal cavity and sinuses PND (post-nasal drip) Postnasal drip Allergic rhinitis due to pollen Gastroesophageal reflux disease, esophagitis presence not specified documented in this encounter Care Teams Assistant Merchandise Manager Relationship Specialty Start Date End Date Brad Solo MD PCP - General 12/30/14 07/27/17 Vandana Epps MD PCP - General Internal Medicine 07/28/17 10/12/22 Unknown Pcp, Non [facility] PCP - General 10/13/22 documented as of this encounter
--- OUTSIDE RECORDS SUMMARY | 2025-03-05 11:01 | XMS_ITS | Encounter Summary ---
Author Organization [facility] Address [address] [place] [address] Care Team Providers Care Flattening Press Operator Name Role Phone Brad Solo MD Primary Care Provider [phone] Vandana Epps MD Primary Care Provider [phone] Unknown Pcp, Non [facility] Primary Care Provider Unava ilable Encounter Details Date Type Department Care Team (Late st Contact Info) Description 05/17/2017 Orders Only [facility] Adult Medicine [address] [place] [phone] Neena Crocker LPN [facility] [address] [place] [phone] Social History Tobacco Use Types Packs/Day Years [...] EDT Office Visit [facility] [address] [place] [phone] Agus Jacinto, OD [address] [place] [address] *est pt exam, no cl, no dm, 1 year follow up, aodv, *not elig. until 12/23/24, , 12/21* tommie, interp needed, aoir sent te over sent email to [email or web address] documented as of this encounter Visit Diagnoses Not on filedocumented in this encounter Care Teams Flattening Press Operator Relationship Specialty Start Date End Date Bard Solo MD PCP - General 12/30/14 07/27/17 Vandana Epps MD PCP - General Internal Medicine 07/28/17 10/12/22 Unknown Pcp, Non [facility] PCP - General 10/13/22 documented as of this encounter
--- OUTSIDE RECORDS SUMMARY | 2025-03-05 11:01 | XMS_ITS | Encounter Summary ---
Author Organization [facility] Address [address] [place] [address] Care Team Providers Care Minister Assistant Name Role Phone Vandana Epps MD Primary Care Provider [phone] Unknown Pcp, Non Rmg Primary Care Provider Unava ilable Encounter Details Date Type Department Care Team (Late st Contact Info) Description 10/12/2017 Orders Only [facility] Adult Medicine [address] [place] [phone] Vandana Epps MD [facility] [address] [facility] [address] [place] [address] Social History Tobacco Use Types [...] Description 07/08/2025 8:30 AM EDT Office Visit [facility]. Optometry [address] [place] [phone] JacintoAgus mclaughlin, OD [address] [place] [address] *est pt exam, no cl, no dm, 1 year follow up, aodv, *not elig. until 12/23/24, , 12/21* tommie, interp needed, aoir sent te over sent email to [email or web address] documented as of this encounter Procedures * Due to [employer] law, this organization might not be sharing [...] in this encounter Results * Due to [employer] law, this organization might not be sharing [...] PM EST 10/12/2017 1:09 PM EST Narrative [facility] - 10/12/2017 2:49 PM EST Patient is not fasting Patient's primary care provider is: ??N/A Testing performed at: [facility], [address] [place] [address], [address], Wire Frame Lamp Shade Maker: Vikas Leung M.D. Vandana Epps MD LABORATORY Final Result [address] [address] DIRECTOR VIKAS LEUNG M.D. * CBC INCLUDES [...] GROUP PLT 265 140 - 400 K/uL [facility] 10/12/2017 1:09 PM EST 10/12/2017 1:09 PM EST Narrative [facility] - 10/12/2017 2:11 PM EST Patient is not fasting Patient's primary care provider is: ??N/A Testing performed at: [facility], [address] [place] [address], [address], Wire Frame Lamp Shade Maker: Vikas Leung M.D. Vandana Epps MD LAB SAME DAY RESULT Final Resu lt [address] [address] DIRECTOR VIKAS LEUNG M.D. * COMPREHENSIVE METABOLIC PANEL WITH GFR (10/12/2017 1:09 PM EST) Glucose 88 65 - 99 mg/dl [facility] Urea Nitrogen Blood (BUN) 13 7 - 25 mg/dL [facility] Creatinine 0.88 0.50 - 1.16 [...] [facility] GFR 71 >60 ml/min [facility] Comment:If the patient is Af rican [place]ian, please multiply result by 1.210 10/12/2017 1:09 PM EST 10/12/2017 1:09 PM EST Narrative [facility] - 10/12/2017 2:49 PM EST Patient is not fasting Patient's primary care provider is: ??N/A Testing performed at: [facility], [address] [place] [address], [address], Wire Frame Lamp Shade Maker: Vikas Leung M.D. Vandana Epps MD LABORATORY Final Result Performing Organization Address [facility] Co de Phone Number [address] [address] DIRECTOR VIKAS LEUNG M.D. * HEPATITIS B SURFACE ANTIGEN (10/12/2017 1:07 PM EST) Hepatitis B virus surface Ag NON-REACTI VE NON-REACT ALEXIS [facility] 10/12/2017 1:07 PM EST 10/12/2017 7:10 PM EST Narrative Resulting Agency Comment [id number] us Vandana Epps MD LABORATORY Final Result [facility] [address] [place] [address] * SYPHILIS (FTA) ANTIBODY CASCADING REFLEX TO [...] 7:10 PM EST Narrative Resulting Agency Comment [id number] us Vandana Epps MD LABORATORY Final Result Performing Organization Address City/[facility] Co de Phone Number [facility] [address] [place] [address] * HEPATITIS C AB WITH REFLEX TO RNA PCR, SERUM (10/12/2017 1:07 PM EST) Hepatitis C virus Ab NON-REACTI VE NON-REACT ALEXIS [facility] Hepatitis C virus Ab Signal/Cutoff 0.02 <1.00 [facility] 10/12/2017 1:07 PM EST 10/12/2017 7:10 PM EST Narrative Resulting Agency Comment [id number] us Vandana Epps MD LABORATORY Final Result Performing Organization Address City/[facility] Co de Phone Number [facility] [address] [place] [address] documented in this encounter Visit Diagnoses Diagnosis Screen for STD (sexually transmitted disease) Screening examination for venereal disease Back pain, unspecified back location, unspecified back pain laterality, unspecified chronicity Abdominal pain, unspecified abdominal location Screening for hyperlipidemia Screening for lipoid disorders documented in this encounter Care Teams Minister Assistant Relationship Specialty Start Date End Date Vandana Epps MD PCP - General Internal Medicine 07/28/17 10/12/22 Unknown Pcp, Non Rmg PCP - General 10/13/22 documented as of this encounter
--- OUTSIDE RECORDS SUMMARY | 2025-03-05 11:01 | XMS_ITS | Encounter Summary ---
Author Organization [facility] Address [address] [place] [address] Care Team Providers Care Cycle Liaison Name Role Phone Unknown Pcp, Non Rmg Primary Care Provider Unava ilable Reason for Visit * Reason Comments Appointment Encounter Details Date Type Department Care Team (Late st Contact Info) Description 04/10/[address] [facility] Optometry [address] [place] [phone] Agus Jacinto OD [address] [place] [address] Appointment Social History Tobacco Use Types Packs/Day [...] Phone 07/04/24 8:30 AM Agus Jacinto OD [facility] Optometry [phone] Pt need a sign electronics engineering manager had to reschedule to an ov2 contact sign electronics engineering manager for this appt sent email to documented in this encounter Plan of Treatment Upcoming Encounters Date Type Department Care Team (Late st Contact Info) Description 07/08/2025 8:30 AM EDT Office Visit [facility] [address] [place] [phone] Agus Jacinto, AYAAN [address] [place] [address] *est pt exam, no cl, no dm, 1 year follow up, aodv, *not elig. until 12/23/24, , 12/21* tommie, interp needed, aoir sent te over sent email to [email or web address] documented as of this encounter Visit Diagnoses Not on filedocumented in this encounter Care Teams Cycle Liaison Relationship Specialty Start Date End Date Unknown Pcp, Non Rmg PCP - General 10/13/22 documented as of this encounter
--- OUTSIDE RECORDS SUMMARY | 2025-03-05 11:01 | XMS_ITS | Encounter Summary ---
Author Organization [facility] Address [address] [place] [address] Care Team Providers Care Manager Mall Name Role Phone Vandana Epps MD Primary Care Provider [phone] Unknown Pcp, Non Rmg Primary Care Provider Unava ilable Reason for Visit * Reason Comments E-prescribing Refill Request Encounter Details Date Type Department Care Team (Late st Contact Info) Description 06/27/2018 Refill [facility] Adult Medicine [address] [place] [phone] Jeanine Mcpherson NP E-prescribing Refill Request Social [...] encounter Miscellaneous Notes * Telephone Encounter - Katey Del Rio - 06/27/2018 9:41 AM EDT Any special requests or concerns? Medication was last filled on Omeprazole (PRILOSEC) 40 MG CAPSULE DELAYED RELEASE 90 Cap 0/0 02/24/2018 Sig - Route: 1 CAPSULE DAILY - Oral Order: [id number] . Faxed/E-prescribed medication renewal request(s) for Matilde [...] Office Visit [facility]. Optometry [address] [place] [address] Agus Jacinto, OD [address] [place] [address] *est pt exam, no cl, no dm, 1 year follow up, aodv, *not elig. until 12/23/24, , 12/21* tommie, interp needed, aoir sent te over sent email to [email or web address] documented as of this encounter Visit Diagnoses Not on filedocumented in this encounter Care Teams Manager Mall Relationship Specialty Start Date End Date Vandana Epps MD PCP - General Internal Medicine 07/28/17 10/12/22 Unknown Pcp, Non Rmg PCP - General 10/13/22 documented as of this encounter
--- OUTSIDE RECORDS SUMMARY | 2025-03-05 11:01 | XMS_ITS | Encounter Summary ---
Author Organization [facility] Address [address] [place] [address] Care Team Providers Care Human Resources Communications Manager Name Role Phone Brad Solo MD Primary Care Provider [phone] Vandana Epps MD Primary Care Provider Unknown Pcp, Non Rmg Primary Care Provider Unava ilable Encounter Details Date Type Department Care Team (Late st Contact Info) Description 06/26/2015 Orders Only [facility] AUTOPSY PATHOLOGIST [address] [place] [phone] Jory Womack MD [address] [place] [phone] Social History Tobacco Use Types Packs/Day Years [...] 8:30 AM EDT Office Visit [facility]. Optometry [address] [place] [phone] Agus Jacinto, AYAAN [address] [place] [address] *est pt exam, no cl, no dm, 1 year follow up, aodv, *not elig. until 12/23/24, , 12/21* tommie, interp needed, aoir sent te over sent email to [email or web address] documented as of this encounter Procedures * Due to [facility] law, this organization might not be sharing negative HIV tests. Procedure Name Priority Date/Time Associated Diagnosis Comments CULTURE, URINE, ROUTINE Routine 06/26/2015 5:24 PM EDT Dysuria URINALYSIS, COMPLETE INCLUDES DIPSTICK AND MICROSCOPIC Routine 06/26/2015 5:24 PM EDT Dysuria BV/VAGINITIS PANELDNA PROBE(AFFIRM) Routine 06/26/2015 5:23 PM EDT Vaginal discharge documented in this encounter Results * Due to [place] [employer] law, this organization might not be sharing negative HIV tests. * (ABNORMAL) CULTURE, URINE, ROUTINE (06/26/2015 5:24 PM EDT) [place] count (Urine) >50,000 CFU/ml [facility] Bacteria culture (Urine) Mixed Culture,Repeat if Clinically Indicated(A) No Growth [facility] 06/26/2015 5:24 PM EDT 06/26/2015 5:24 PM EDT Narrative [facility] - 06/28/2015 8:11 AM EDT Patient's primary care provider is: ??N/A Testing performed at: [facility], [address] [place] [address], [address], Drafter Engineering: Vikas Leung M.D. us Jory Womack MD LABORATORY Final R esult [address] [address] DIRECTOR VIKAS LEUNG M.D. * URINALYSIS, COMPLETE [...] PM EDT 06/26/2015 5:24 PM EDT Narrative [facility] - 06/26/2015 7:12 PM EDT Patient's primary care provider is: ??N/A Testing performed at: [facility], [address] [place] [address], [address], Drafter Engineering: Vikas Leung M.D. Jory Womack MD LAB SAME DAY RESULT Fin al Result [address] [address] DIRECTOR VIKAS LEUNG M.D. * BV/VAGINITIS PANELDNA PROBE (06/26/2015 5:23 PM EDT) Trichomonas vaginalis rRNA (Genital) NOT DETECTED NOT DETECTED [facility] Comment:{TRICHOMONAS: {[id number]) Gardnerella vaginalis rRNA (Genital) NOT DETECTED NOT DETECTED [facility] Comment:{GARDNERELLA: {[id number]) Analisa sp rRNA (Vag) NOT DETECTED NOT DETECTED [facility] Comment:{ANALISA: {[id number]) 06/26/2015 5:23 PM EDT 06/26/2015 11:16 PM EDT Narrative Resulting Agency Comment [id number] Jory Womack MD LABORATORY Final R esult Performing Organization Address City/State/[facility] Co de Phone Number [facility] [address] [place] [address] documented in this encounter Visit Diagnoses Diagnosis Dysuria Vaginal discharge Leukorrhea, not specified as infective documented in this encounter Care Teams Human Resources Communications Manager Relationship Specialty Start Date End Date Brad Solo MD PCP - General 12/30/14 07/27/17 Vandana Epps MD PCP - General Internal Medicine 07/28/17 10/12/22 Unknown Pcp, Non Rmg PCP - General 10/13/22 documented as of this encounter
--- OUTSIDE RECORDS SUMMARY | 2025-03-05 11:01 | XMS_ITS | Encounter Summary ---
Author Organization [facility] Address [address] [place] [address] Care Team Providers Care Computer Teacher Name Role Phone Vandana Epps MD Primary Care Provider [phone] Unknown Pcp, Non Rmg Primary Care Provider Unava ilable Reason for Referral * CONSULT AND TREATMENT (Routine) - Auth Not Needed Specialty Diagnoses / Procedures Referred By Contac t Referred To Contact Mammography Diagnoses annual screening Procedures REQUEST FOR MAMMOGRAPHY BILATERAL(DX: SCREENING FOR BREAST CANCER Z12.31)(1 YR FROM LAST) NON-FC Vandana Epps MD Phone: tel: fax: [facility] Referral ID Status Reason Start Date Expiration Date Visits Requested Visits Authorized [id number] Auth Not Needed Continuity of Care 09/15/2017 1 1 Encounter Details Date Type Department Care Team (Late st Contact Info) Description 09/15/2017 Orders Only [facility] Adult Medicine [address] [place] [phone] Vandana Epps MD [facility] [address] [facility] [address] [place] [address] Social History Tobacco Use Types [...] Description 07/08/2025 8:30 AM EDT Office Visit [facility]. Optometry [address] [place] [phone] Agus Jacinto, OD [address] [place] [address] *est pt exam, no cl, no dm, 1 year follow up, aodv, *not elig. until 12/23/24, , 12/21* tommie, interp needed, aoir sent te over sent email to [email or web address] Scheduled Orders Name Type Priority Associated Diagnoses Orde r Schedule REQUEST FOR MAMMOGRAPHY BILATERAL(DX: SCREENING FOR BREAST CANCER Z12.31)(1 YR FROM LAST) NON-FC Imaging Routine Ordered: 1 documented as of this encounter Visit Diagnoses Not on filedocumented in this encounter Care Teams Computer Teacher Relationship Specialty Start Date End Date Vandana Epps MD PCP - General Internal Medicine 07/28/17 10/12/22 Unknown Pcp, Non Rmg PCP - General 10/13/22 documented as of this encounter
--- OUTSIDE RECORDS SUMMARY | 2025-03-05 11:01 | XMS_ITS | Encounter Summary ---
Author Organization [facility] Address [address] [place] [address] Care Team Providers Care Geophysical Operator Name Role Phone Vandana Epps MD Primary Care Provider [phone] Unknown Pcp, Non Rmg Primary Care Provider Unava ilable Encounter Details Date Type Department Care Team (Late st Contact Info) Description 10/10/2017 Orders Only [facility] RN MED SURG [address] [place] [phone] oJry Womack MD [address] [place] [phone] Social History Tobacco Use Types Packs/Day Years [...] Description 07/08/2025 8:30 AM EDT Office Visit [facility]. Optometry [address] [place] [phone] Agus Jacinto, OD [address] [place] [address] *est pt exam, no cl, no dm, 1 year follow up, aodv, *not elig. until 12/23/24, , 12/21* tommie, interp needed, aoir sent te over sent email to [email or web address] documented as of this encounter Procedures * Due to [facility] law, this organization might not be sharing negative HIV tests. Procedure Name Priority Date/Time Associated Diagnosis Comments CHLAMYDIA TRACHOMATIS/N. GONORRHOEAE (GC) RNA, TMA (URINE) Routine 10/10/2017 4:30 PM EST Screening for chlamydial disease documented in this encounter Results * Due to [facility] law, this organization might not be sharing negative HIV tests. * CHLAMYDIA TRACHOMATIS/N. GONORRHOEAE (GC) RNA, TMA (URINE) (10/10/2017 4:30 PM EST) Chlamydia trachomatis rRNA NOT DETECTED NOT DETECTED [facility] Neisseria Gonorrhoeae rRNA NOT DETECTED NOT DETECTED [facility] COMMENT SEE NOTE [facility] Comment: This test was performed using the APTIMA COMBO2 Assay ([employer] The analytical performance characteristics of this assay, when used to test [employer] specimens have been determined by [facility]. 10/10/2017 4:30 PM EST 10/10/2017 10:00 PM EST Narrative Resulting Agency Comment [id number] us Jory Womack MD LABORATORY Final R esult Performing Organization Address City/State/[facility] Co de Phone Number [facility] [address] [place] [address] documented in this encounter Visit Diagnoses Diagnosis Screening for chlamydial disease Special screening examination for unspecified chlamydial disease documented in this encounter Care Teams Geophysical Operator Relationship Specialty Start Date End Date Vandana Epps MD PCP - General Internal Medicine 07/28/17 10/12/22 Unknown Pcp, Non Rmg PCP - General 10/13/22 documented as of this encounter
--- OUTSIDE RECORDS SUMMARY | 2025-03-05 11:02 | XMS_ITS | Continuity of Care Document ---
Author Organization [facility] Address [address] [place] [address] Care Team Providers Care Ese Teacher Name Role Phone Unknown Pcp, Non Rmg Primary Care Provider Unava ilable Encounters Date Type Department Care Team Description 01/28/2025 Refill [facility] [address] [place] [phone] Alexandra Cancino, OD E-prescribing Refill Request 11/19/[address] [facility] [address] [place] [phone] Agus Jacinto, OD E-prescribing Refill Request 07/04/2024 8:30 AM EDT Office Visit [facility] [address] [address] Agus Jacinto, OD History of retinal detachment 04/25/2024 Refill [facility] [address] [place] [phone] Alexandra Cancino OD Refill Request 04/10/[address] [facility] [address] [place] [phone] Agus Jacinto, OD Appointment 01/12/[address] [facility] [address] [place] [phone] Alexandra Cancino, OD E-prescribing Refill Request 12/22/2022 8:00 AM EST Office Visit [facility] [address] [place] [phone] Alexandra Cancino, OD Encounter for ophthalmic examination and evaluation (Primary Dx); Presbyopia; History of retinal detachment 06/22/2022 Orders Only [facility] Ophthalmology [address] [place] [phone] Margaret Meza Tech Medications 09/29/2021 Refill [facility] [address] [place] [phone] Alexandra Cancino, OD E-prescribing Refill Request 04/22/2021 Travel 04/22/2021 1:20 PM EDT Office Visit [address] [phone] Alexandra Cancino, OD Encounter for ophthalmic examination and evaluation (Primary Dx); Presbyopia; History of retinal detachment; Aphakia, right 12/03/2020 Travel 12/03/2020 1:45 PM EST Office Visit [facility] Pulmonary [address] [place] [address] [address] [place] [address] Eloy Pritchard MD Chronic cough (Primary Dx); Postnasal drip; Hiatal hernia; Non-allergic rhinitis 10/20/2020 Refill [facility] [address] [place] [phone] Vandana Epps MD E-prescribing Refill Request 09/29/[address] [phone] Alexandra Cancino, OD Eye Problem 09/16/2020 Refill [facility] [address] [place] [phone] Vandana Epps MD E-prescribing Refill Request 09/13/2020 Minor Procedure/Test [facility] [address] [place] [address] [facility], Unknown Provider 09/03/2020 Refill [facility] [address] [place] [phone] Vandana Epps MD E-prescribing Refill Request 06/24/[address] [address] Vandana Epps MD E-prescribing Refill Request 04/30/[address] [phone] Vandana Epps MD 04/16/2020 Travel 04/16/2020 9:15 AM EDT Office Visit [facility] Pulmonary [address] [place] [address] [address] [place] [address] Eloy Pritchard MD Chronic cough (Primary Dx); Postnasal drip; Hiatal hernia; Gastroesophageal reflux disease, esophagitis presence not specified 04/15/2020 Letter/Form [address] [phone] Kadeem Steele MD 03/21/2020 Travel 03/05/2020 Travel 02/28/[address] [address] Vandana Epps MD Prescription Assistance 02/12/2020 Travel 02/11/[address] [address] Vandana Epps MD Error 02/11/[address] [address] Vandana Epps MD Refill Request ; Refill Request 02/09/[address] [address] Vandana Epps MD E-prescribing Refill Request 10/23/2019 Orders Only [address] [address] Vandana Epps MD 10/23/2019 1:00 PM EST CPE - Comprehensive Physical Exam [address] [address] Vandana Epps MD Routine history and physical examination of adult (Primary Dx); Screening for hyperlipidemia; Weight loss; Postnasal drip; Chronic cough; Gastroesophageal reflux disease, esophagitis presence not specified; Well adult exam 10/23/2019 2:00 PM EST Office Visit [facility] EXTENSION CLERK [address] [place] [phone] Diane Blanton MD Perimenopausal disorder (Primary Dx); Screening breast examination 10/18/2019 8:45 AM EST Consult (Initial) [facility] Pulmonary [address] [place] [phone] Eloy Pritchard MD Cough (Primary Dx); Chronic cough; Postnasal drip; Non-allergic rhinitis; Hiatal hernia 10/17/2019 1:30 PM EST Radiology [facility] Xray [address] [place] [address] 10/16/[address] [address] Vandana Epps MD Other 09/12/2019 Minor Procedure/Test [facility] [address] [place] [address] [facility], Unknown Provider 09/12/2019 10:30 AM EDT Office Visit [address] [address] Vandana Epps MD Cough (Primary Dx); Need for vaccination; Need for immunization against influenza 08/27/[address] [phone] Vandana Epps MD Cough 08/22/[address] [address] Vandana Epps MD E-prescribing Refill Request 08/04/[address] [address] Vandana Epps MD E-prescribing Refill Request 06/14/[address] [phone] Vandana Epps MD Results 06/13/2019 1:30 PM EDT Office Visit [address] [address] Vandana Epps MD Pharyngitis, unspecified etiology (Primary Dx); Cough 03/21/[address] [address] Vandana Epps MD E-prescribing Refill Request 02/26/2019 Consult (Initial) REHABILITATION UNSPEC Provider, Unknown 02/14/[address] [address] Vandana Epps MD 02/13/[address] [address] Vandana Epps MD E-prescribing Refill Request 02/08/2019 10:00 AM EDT Office Visit [facility] [address] [place] [phone] Heidy Pritchard, OD Bilateral deafness; History of retinal detachment; Encounter for ophthalmic examination and evaluation; Disorder of refraction 02/05/[address] [address] Vandana Epps MD 01/18/2019 Consult (Initial) REHABILITATION UNSPEC Provider, Unknown 12/26/[address] [address] Vandana Epps MD Other 12/26/2018 12:30 PM EST Radiology [facility] Xray [address] [place] [phone] Neck pain 12/26/2018 11:30 AM EST Office Visit [address] [address] Vandana Epps MD Left arm pain (Primary Dx); Neck pain; Chronic left shoulder pain 12/19/2018 11:30 AM EST Minor Procedure/Test [facility] [address] [place] [phone] Joaquin Wooten MD Chest pain, unspecified type (Primary Dx) 12/13/2018 2:00 PM EST Radiology [facility] Xray [address] [place] [address] Left shoulder pain, unspecified chronicity 12/13/2018 Orders Only [facility] Orthopedic Surgery [address] [place] [address] Car Rodriguez DO 12/13/2018 1:00 PM EST Consult (Initial) [facility] Surgery [address] [place] [address] Car Rodriguez, Left arm pain (Primary Dx); Chest wall pain; Left elbow pain; Left lateral epicondylitis 12/08/[address] [address] Vandana Epps MD Refill Request 11/07/2018 Refill [facility] Pulmonary [address] [facility] [address] [place] [address] Eloy Pritchard MD Refill Request 10/31/[address] [address] Vandana Epps MD Refill Request 10/24/[address] [address] Vandana Epps MD Results 10/18/2018 Orders Only [facility] Cardiology [address] [facility] [address] [place] [address] Batsheva Tamez, DO 10/18/2018 10:45 AM EST Radiology [facility] Xray [address] [place] [address] 10/18/2018 Orders Only [facility] Medicine [address] [place] [phone] Vandana Epps MD 10/18/[address] [address] Vandana Epps MD PT-1 Form 10/18/2018 10:00 AM EST Office Visit [facility] EXTENSION CLERK [address] [place] [phone] Diane Blanton MD Perimenopausal disorder (Primary Dx) 10/18/2018 8:30 AM EST CPE - Comprehensive Physical Exam [address] [phone] Vandana Epps MD Routine history and physical examination of adult (Primary Dx); Chronic cough; Gastroesophageal reflux disease, esophagitis presence not specified; Chest pain, unspecified type; Weight loss; Chronic left shoulder pain; Screening for hypercholesterolemia; Immunization due 10/07/[address] [address] Vandana Epps MD E-prescribing Refill Request 10/06/[address] [address] Vandana Epps MD Refill Request 09/29/[address] [address] Vandana Epps MD 09/25/2018 Letter/Form INTERNAL MED UNSPEC Vandana Epps MD 09/11/2018 Minor Procedure/Test [address], Unknown Provider 09/05/[address] [phone] Vandana Epps MD Referral Request 08/24/[address] [phone] Vandana Epps MD E-prescribing Refill Request 07/18/2018 Hospital/[place] [address] Johnny Potter MD 06/27/[address] [phone] Jeanine Mcpherson NP E-prescribing Refill Request 06/14/2018 9:15 AM EDT Office Visit [address] [address] Vandana Epps MD Gastroesophageal reflux disease without esophagitis (Primary Dx) 04/10/2018 3:00 PM EDT Office Visit [facility] Pulmonary [address] [facility] 2nd Floor [address] [place] [address] Eloy Pritchard MD Chronic cough (Primary Dx); Postnasal drip; Non-allergic rhinitis 04/08/[address] [address] Jeanine Mcpherson NP E-prescribing Refill Request 03/11/[address] [address] Jeanine Mcpherson NP E-prescribing Refill Request 03/06/[address] [address] Vandana Epps MD Refill Request 03/03/[address] [address] Vinita Rai MD E-prescribing Refill Request 02/23/[address] [address] Vandana Epps MD Refill Request 02/13/2018 Refill [facility] [address] [place] [address] Tavo Martinez MD E-prescribing Refill Request 02/03/[address] [address] Vandana Epps MD Refill Request ([facility]) 01/24/[address] [address] Vandana Epps MD Colonoscopy/EGD 01/19/2018 Refill [facility] Medicine [address] [place] [phone] Vandana Epps MD Refill Request 01/19/2018 Telephone [facility] Pulmonary [address] [place] [phone] Eloy Pritchard MD Prescription Assistance (Refill); Refill Request 01/09/[address] [address] Vandana Epps MD Refill Request 12/26/2017 Refill [facility] EXTENSION CLERK [address] [place] [address] Diane Blanton MD Balodimos, Iphigenia MD; Refill Request 12/21/2017 Telephone [facility] [address] [place] [address] Eloy Pritchard MD FYI ; Prescription Assistance 12/21/[address] [address] Vandana Epps MD Refill Request 12/07/[address] [address] Vandana Epps MD Prescription Assistance 12/02/2017 Refill [facility] [address] [place] [phone] Eloy Pritchard MD Refill Request 12/02/[address] [address] Vandana Epps MD Refill Request 10/12/2017 Orders Only [address] [address] Vandana Epps MD 10/12/2017 11:45 AM EST CPE - Comprehensive Physical Exam [address] [address] Vandana Epps MD Routine history and physical examination of adult (Primary Dx); Need for influenza vaccination; Back pain, unspecified back location, unspecified back pain laterality, unspecified chronicity; Abdominal pain, unspecified abdominal location; Screen for STD (sexually transmitted disease); Flu vaccine need; Screening for hyperlipidemia 10/10/2017 Orders Only [facility] EXTENSION CLERK [address] [place] [phone] Diane Blanton MD 10/10/2017 3:00 PM EST Office Visit [facility] EXTENSION CLERK [address] [place] [phone] Diane Blanton MD Perimenopausal disorder (Primary Dx); Screening for chlamydial disease 10/04/2017 3:00 PM EST Office Visit [facility] Pulmonary [address] [place] [address] Floor [address] [place] [address] Eloy Pritchard MD Chronic cough (Primary Dx); Post-nasal drainage 09/20/2017 Refill [facility] Pulmonary [address] [place] [address] [address] [place] [address] Eloy Pritchard MD Patient Questions ; Refill Request 09/15/2017 Orders Only [facility] Medicine [address] [place] [phone] Vandana Epps MD 09/08/2017 Minor Procedure/Test AUDIOLOGY UNSPECIFIED Provider, Unknown 09/08/2017 Minor Procedure/Test INTERNAL MED UNSPEC Abdi Solo MD 09/08/2017 Telephone [facility] Medicine [address] [place] [phone] Vandana Epps MD Other 09/08/2017 Minor Procedure/Test [address], Unknown Provider 09/07/2017 Telephone [facility] Medicine [address] [place] [phone] Vandana Epps MD Referral Request 08/24/2017 Minor Procedure/Test [address] [address] Abdi Solo MD [facility], Unknown Provider 08/18/[address] [phone] Jeaneth Mcbride LPN Referral Request 08/02/2017 Refill [facility] EXTENSION CLERK [address] [place] [phone] Diane Blanton MD Balodimos, Iphigenia MD; Refill Request 07/12/[address] [address] Abdi Solo MD Refill Request 06/23/2017 2:00 PM EDT Office Visit [facility] Pulmonary [address] [place] [phone] Eloy Pritchard MD Postnasal drip (Primary Dx); Cough 06/17/[address] [address] Abdi Solo MD Results 06/14/2017 Orders Only [address] [address] Abdi Solo MD 06/14/2017 10:45 AM EDT Office Visit [address] [address] Abdi Solo MD Multiple joint pain (Primary Dx); Chronic cough; Gastroesophageal reflux disease, esophagitis presence not specified; Deafness, bilateral; Varicose veins of both lower extremities; Insomnia, unspecified type; Anxiety; Post-nasal drainage 05/17/2017 Orders Only [address] [address] Neena Crocker LPN 05/13/2017 12:45 PM EDT Consult (Initial) [facility] Pulmonary [address] [place] [address] [place] [phone] Eloy Pritchard MD Postnasal drip (Primary Dx); Cough 04/18/2017 Home Visit UNKOWN MD UNSPEC Provider, Unknown 04/18/2017 12:30 PM EDT Office Visit [address] [phone] Karen Luciano NP Acute URI (Primary Dx); Cough; Acute pharyngitis, unspecified etiology; Allergic rhinitis, unspecified allergic rhinitis trigger, unspecified rhinitis seasonality 04/18/[address] [address] Abdi Solo MD Sore Throat; Cough 04/12/2017 1:15 PM EDT Office Visit [address] [address] Jeanine Mcpherson NP Upper respiratory tract infection, unspecified type (Primary Dx) 03/29/[address] [address] Abdi Solo MD Prescription Assistance 03/08/2017 Letter/Form INTERNAL MED UNSPEC Abdi Solo MD 02/24/2017 11:00 AM EDT Radiology [facility] Ultrasound [address] [place] [address] 02/24/2017 11:30 AM EDT Office Visit [facility] EXTENSION CLERK [address] [place] [phone] Diane Blanton MD Perimenopausal disorder (Primary Dx) 02/18/2017 9:45 AM EDT Office Visit [address] [address] Abdi Solo MD Chronic cough (Primary Dx); Gastroesophageal reflux disease, esophagitis presence not specified; Deafness, bilateral; Insomnia, unspecified type; Varicose veins of both lower extremities; Gastroesophageal reflux disease without esophagitis; Vitamin D deficiency; Polyp of colon, unspecified part of colon, unspecified type; Non-allergic rhinitis; Anxiety 01/18/2017 Telephone [facility] EXTENSION CLERK [address] [place] [phone] BalodiDiane rogers MD Balodimos, Iphigenia MD; Care Coordination Communication 01/07/2017 Refill [facility] Medicine [address] [place] [phone] Abdi Solo MD Refill Request 12/30/[address] [phone] Abdi Solo MD Care Coordination Communication 12/30/2016 11:45 AM EST Office Visit [facility] [address] [place] [phone] Heidy Pritchard, AYAAN Examination of eyes and vision (Primary Dx); History of retinal detachment 12/29/2016 Letter/Form INTERNAL MED UNSPEC Abdi Solo MD 12/24/2016 Minor Procedure/Test GASTRO UNSPECIFIED Johnny Potter MD 12/13/2016 Telephone [facility] EXTENSION CLERK [address] [place] [phone] Diane Blanton MD Balodimos, Iphigenia MD; Appointment 11/02/2016 Orders Only [facility] Otolaryngology [address] [facility] [address] [place] [phone] Rebecca Hollins LPN Medications 11/02/2016 Telephone [facility] Otolaryngology [address] [facility] [address] [place] [address] Tami Doyle MD Refill Request 11/02/2016 Telephone [facility] Podiatry [address] [place] [phone] Ирина Taylor DPM Prescription Assistance 10/29/[address] [phone] Abdi Solo MD Referral Request 10/29/[address] [phone] Abdi Solo MD Refill Request ; Prescription Assistance 10/29/[address] [place] [address] Abdi Solo MD Vision Screening 10/29/2016 10:30 AM EST Consult (Initial) [facility] Otolaryngology [address] [place] [address] Tami Doyle MD Cough (Primary Dx); Gastroesophageal reflux disease, esophagitis presence not specified; Dyspnea, unspecified type 10/26/2016 Refill [facility] Medicine [address] [place] [phone] Abdi Solo MD Refill Request 10/06/2016 Orders Only [facility] EXTENSION CLERK [address] [place] [phone] Cintia Gómez NP 10/06/2016 1:15 PM EST Office Visit [facility] EXTENSION CLERK [address] [place] [phone] Cintia Gómez NP Encounter for gynecological examination without abnormal finding (Primary Dx); Dysmenorrhea; Perimenopause 09/09/2016 2:15 PM EDT Office Visit [facility] [address] [place] [address] Tavo Martinez MD Cough (Primary Dx) 09/07/2016 Office Visit [facility] UNSPECIFIED Unknown Pcp, Non Rmg 09/07/[address] [phone] Abdi Solo MD Cough 09/06/[address] [phone] Abdi Solo MD Refill Request 09/01/[address] [phone] Jeaneth Mcbride LPN Refill Request 09/01/[address] [phone] Abdi Solo MD Medication Check; Return Call 08/24/2016 Orders Only [facility] Medicine [address] [place] [phone] Abdi Solo MD 08/23/2016 Orders Only [facility] EXTENSION CLERK [address] [place] [phone] Diane Blanton MD 08/20/[address] [phone] Abdi Solo MD Prescription Assistance 08/19/[address] [phone] Abdi Solo MD Labs/orders 08/19/[address] [phone] Abdi Solo MD Prescription Assistance 08/19/2016 Orders Only [address] [phone] Abdi Solo MD 08/19/2016 1:00 PM EDT Office Visit [address] [phone] Abdi Solo MD Routine history and physical examination of adult (Primary Dx); Cough; Gastroesophageal reflux disease without esophagitis; Colon polyps; Post-nasal drainage; Vitamin D deficiency; Anxiety; Deafness, bilateral; Screening cholesterol level; Need for immunization against influenza 08/18/2016 Orders Only [facility] [address] [place] [address] [facility], Unknown Provider 08/18/2016 Minor Procedure/Test INTERNAL MED UNSPEC Abdi Solo MD 07/26/2016 Minor Procedure/Test AUDIOLOGY UNSPECIFIED Provider, Unknown 06/08/[address] [phone] Abdi Solo MD Referral Request 04/08/[address] [phone] Abdi Solo MD Refill Request 03/05/2016 Orders Only [address] [address] Xavi Ojeda PA 02/18/2016 Consult (Initial) GEN VAS UNSPECIFIED Trinity Phillip NP 01/26/[address] [phone] Abdi Solo MD Vomiting ; Cough ; Congestion; FYI 01/07/[address] [phone] Abdi Solo MD Refill Request 12/30/[address] [phone] Abdi Solo MD [facility] 12/04/[address] [phone] Abdi Solo MD Refill Request 11/19/2015 Consult (Initial) [address] [address] Trinity Phillip, ESTELA 11/19/2015 9:30 AM EST Office Visit [facility] Orthopedic Surgery [address] [phone] Xavi Ojeda PA Nondisplaced fracture of third metatarsal bone of left foot with routine healing, subsequent encounter (Primary Dx) 11/12/2015 Telephone [facility] Orthopedic Surgery [address] [phone] Xavi Ojeda PA Letter/form Request (JL) 11/10/2015 Surgery/Major Procedure GEN VAS UNSPECIFIED Mack Mccarthy. 11/05/2015 3:00 PM EST Office Visit [address] [phone] Buffy Capps NP Dysphagia, unspecified dysphagia (Primary Dx); Cough 10/30/2015 Orders Only NON [facility] [address] [place] [address] [facility], Unknown Provider 10/30/[address] [phone] Abdi Solo MD Imaging Study 10/30/2015 11:00 AM EST Office Visit [facility] Orthopedic Surgery [address] [facility] [address] [place] [phone] Noris Cruz PA Nondisplaced fracture of third metatarsal bone of left foot with routine healing, subsequent encounter (Primary Dx) 10/29/2015 Telephone [facility] Medicine [address] [place] [phone] Abdi Solo MD Information 10/28/2015 [facility] Only [facility] [address] [place] [phone] John Oviedo MD 10/22/2015 Minor Procedure/Test INTERNAL MED UNSPEC Abdi Solo MD 10/21/2015 Consult (Initial) GEN VAS UNSPECIFIED Mack Mccarthy 10/15/[address] [phone] Abdi Solo MD Imaging Study 10/15/2015 Orders Only [address] [phone] Buffy Capps NP 10/15/2015 1:30 PM EST Consult (Initial) [facility] Orthopedic Surgery [address] [facility] [address] [place] [phone] Noris Cruz PA Closed nondisplaced fracture of third metatarsal bone of left foot, initial encounter (Primary Dx) 10/13/2015 Telephone [facility] Medicine [address] [place] [phone] Abdi Solo MD Referral Request 10/10/[address] [phone] Abdi Solo MD Information 10/09/[address] [phone] Neena Crocker LPN Results 10/06/2015 Home Visit [facility] UNSPEC Provider, Unknown 10/06/2015 1:30 PM EST [facility] [facility] [address] [place] [id number] Acute foot pain, left 10/06/2015 12:45 PM EST Office Visit [address] [phone] Karen Luciano NP Acute foot pain, left (Primary Dx) 10/06/[address] [phone] Abdi Solo MD Foot Pain 09/23/2015 10:45 AM EDT [facility] Xray [address] [place] [address] Cough 09/23/2015 10:00 AM EDT Office Visit [address] [phone] Buffy Capps NP Cough (Primary Dx); Need for influenza vaccination 09/17/[address] [phone] Abdi Solo MD 09/09/2015 Consult (Initial) GEN VAS UNSPECIFIED Mack Mccarthy 09/02/[address] [phone] John Oviedo MD Return Call 09/01/2015 Orders Only [facility] [address] [place] [phone] John Oviedo MD 09/01/2015 1:40 PM EDT Office Visit [facility] [address] [place] [phone] John Oviedo MD Non-allergic rhinitis (Primary Dx); Gastroesophageal reflux disease without esophagitis; Post-nasal drainage 08/27/[address] [phone] Abdi Solo MD Refill Request (Arturo Patton) 08/14/2015 Abstract [facility] [address] [place] [phone] Abdi Solo MD 08/13/2015 Orders Only [facility] [address] [place] [phone] John Oviedo MD 08/13/[address] [phone] Abdi Solo MD Information 08/13/2015 1:40 PM EDT Office Visit [facility] [address] [place] [phone] John Oviedo MD PND (post-nasal drip) (Primary Dx); Sinus congestion; Allergic rhinitis due to pollen; Gastroesophageal reflux disease, esophagitis presence not specified 08/07/2015 Letter/Form INTERNAL MED UNSPEC Abdi Solo MD 08/06/2015 Telephone [facility] [address] [place] [phone] Abdi Solo MD Letter/form Request 08/06/[address] [phone] Abdi Solo MD Refill Request ([address]) 07/28/[address] [phone] Abdi Solo MD Other 07/16/2015 Telephone [facility] [address] [place] [phone] Abdi Solo MD Unable To Schedule 07/10/2015 Consult (Initial) GEN VAS UNSPECIFIED Provider, Unknown 07/02/2015 Minor Procedure/Test INTERNAL MED UNSPEC Abdi Solo MD 06/30/2015 Refill [facility] [address] [place] [phone] Diane Blanton MD Results 06/26/2015 Orders Only [facility] [address] [place] [phone] Diane Blanton MD 06/26/2015 2:00 PM EDT Office Visit [facility] [address] [place] [phone] Diane Blanton MD Routine gynecological examination (Primary Dx); Vaginal discharge; Dysmenorrhea; Dysuria; Screening breast examination 06/26/2015 1:00 PM EDT CPE - Comprehensive Physical Exam [address] [phone] Abdi Solo MD Routine history and physical examination of adult (Primary Dx); Deafness, unspecified laterality; Sinus congestion; Varicose veins; Insomnia; Anxiety; Vitamin D deficiency; Post-nasal drainage; Gastroesophageal reflux disease without esophagitis; Colon polyps; Acute right eye pain; Environmental allergies 06/24/2015 Consult (Initial) GEN VAS UNSPECIFIED [facility], Unknown Provider 06/20/2015 Consult (Initial) REHABILITATION UNSPEC Provider, Unknown 06/12/2015 Surgery/Major Procedure GEN VAS UNSPECIFIED Mack Mccarthy 06/10/[address] [phone] Abdi Solo MD Refill Request ; Return Call 06/04/2015 9:15 AM EDT Office Visit [address] [phone] Buffy Capps NP Neck pain (Primary Dx); Knee pain, unspecified laterality 06/02/[address] [phone] Abdi Solo MD Results 05/16/2015 Hospital/Inpatient [facility]/[address] [address] Provider, Unknown 05/15/[address] [phone] Abdi Solo MD Refill Request ([facility]) 05/05/[address] [phone] Abdi Solo MD Results 04/30/2015 2:45 PM EDT Radiology [address] [address] Left knee pain (Primary Dx) 04/30/2015 2:00 PM EDT Office Visit [address] [phone] Buffy Capps NP Left knee pain (Primary Dx) 04/14/[address] [phone] Abdi Solo MD Other ; Provider (ABDI SOLO MD (Medical Doctor,Internal Medicine A-[id number]) [facility] ([id number])) 04/10/2015 Office Visit [address] [phone] Abdi Solo MD Abnormal weight gain; Benign neoplasm of colon; Other allergy, other than to medicinal agents; Unspecified hearing loss; Pain in joint, lower leg; Disturbance of skin sensation; Asymptomatic varicose veins; Cough; Anxiety state, unspecified; Abdominal pain, epigastric; Unspecified sinusitis (chronic); Insomnia, unspecified; Other diseases of nasal cavity and sinuses(478.19); Esophageal reflux; Unspecified vitamin D deficiency 04/10/[address] [phone] Abdi Solo MD Medication Problem ; Provider (ABDI SOLO MD (Medical Doctor,Internal Medicine A-[id number]) [facility] ([id number])) 04/03/[address] [phone] Abdi Solo MD Refill Request (Arturo Patton LT); Provider (ABDI SOLO MD (Medical Doctor,Internal Medicine A-[id number]) [facility] ([id number])) 03/25/2015 Consult (Initial) PODIATRY UNSPECIFIED Mary Meredith 03/25/2015 Letter/Form NON FC SA NON FC UNK Lorhilary Mary C. Other unknown and unspecified cause of morbidity or mortality 02/05/[address] [phone] Abdi Solo MD Refill Request ([facility]); Provider (ABDI SOLO MD (Medical Doctor,Internal Medicine A-[id number]) [facility] ([id number])) 01/15/2015 Orders Only NON FC SA FC UNK Abdi Solo MD 01/01/2015 Consult (Initial) PODIATRY UNSPECIFIED Loretz, Mary C. 01/01/2015 Letter/Form NON FC SA NON FC UNK Lorhilary Mary C. Other unknown and unspecified cause of morbidity or mortality 12/18/[address] [phone] Unknown Pcp, Non Rmg Medication Problem ; Provider (NON ATRIUS PCP (Internal Medicine A-4) [facility] ([id number])) 12/18/[address] [phone] Unknown Pcp, Non Rmg 12/17/2014 Letter/Form NON FC SA NON FC UNK Provider, Unknown 12/17/[address] [phone] Unknown Pcp, Non Rmg Refill Request ([facility]); Provider (NON ATRIUS PCP (Internal Medicine A-4) [facility] ([id number])) 12/17/[address] [phone] Unknown Pcp, Non Rmg Patient Questions ; Medication Problem ; Provider (NON ATRIUS PCP (Internal Medicine A-4) [facility] ([id number])) 11/20/2014 Letter/Form NON FC SA NON FC UNK Provider, Unknown 11/20/2014 Abstract [facility] [address] [place] [phone] Unknown Pcp, Non Rmg 10/16/[address] [phone] Unknown Pcp, Non Rmg Other ; Provider (NON ATRIUS PCP (Internal Medicine A-4) [facility] ([id number])) 10/14/[address] [phone] Unknown Pcp, Non Rmg Refill Request (Anna); Provider (NON ATRIUS PCP (Internal Medicine A-4) [facility] ([id number])) 2014 Letter/Form [address] [phone] Abdi Solo MD 09/11/2014 Letter/Form NON FC SA NON FC UNK Provider, Unknown 09/11/[address] [phone] Bonnie Patel LPN Other ; Provider (BONNIE PATEL LPN (Licensed Practical Nurse,Internal Medicine A-[id number]) [facility] ([id number])) 09/11/[address] [phone] Abdi Solo MD Return Call ; Provider (ABDI SOLO MD (Medical Doctor,Internal Medicine A-64742) [facility] ([id number])) 09/11/2014 Orders Only [facility] [address] [place] [phone] Abdi Solo MD 09/11/2014 Office Visit [address] [phone] Abdi Solo MD Dysuria; Unspecified vitamin D deficiency; Other allergy, other than to medicinal agents; Need for prophylactic vaccination and inoculation against influenza; Anxiety state, unspecified; Esophageal reflux 09/05/2014 Orders Only NON FC SA FC UNK Abdi Solo MD 08/30/2014 Minor Procedure/Test OPHTHAL UNSPECIFIED Provider, Unknown 08/22/2014 Letter/Form [facility] [address] [place] [phone] Abdi Solo MD 07/23/2014 Letter/Form [facility] [address] [place] [phone] Abdi Solo MD 06/24/2014 Letter/Form NON FC SA NON FC UNK Provider, Unknown 06/24/2014 Abstract [facility] [address] [place] [phone] Unknown Pcp, Non Rmg 06/20/2014 Telephone [facility] [address] [place] [phone] Diane Blanton MD Return Call ; Provider (DIANE BLANTON MD (Medical Doctor,Obstetrics and Gynecology A-[id number]) [facility] (AD-[id number])) 06/18/2014 Telephone [facility] [address] [place] [phone] Abdi Solo MD Other ; Provider (ABDI SOLO MD (Medical Doctor,Internal Medicine A-55513) [facility] (AD-[id number])) 06/17/2014 Telephone [facility] [address] [place] [phone] Diane Blanton MD Other ('S JAZZY #); Provider (DIANE BLANTON MD (Medical Doctor,Obstetrics and Gynecology A-48257) [facility] (AD-[id number])) 06/17/2014 Telephone [facility] [address] [place] [phone] Diane Blanton MD Other ; Provider (DIANE BLANTON MD (Medical Doctor,Obstetrics and Gynecology A-37189) [facility] (AD-[id number])) 06/17/2014 Refill [facility] [address] [place] [phone] Diane Blanton MD Other ; Provider (DIANE BLANTON MD (Medical Doctor,Obstetrics and Gynecology A-88572) [facility] (AD-[id number])) 06/13/[address] [phone] Abdi Solo MD Other ; Provider (ABDI SOLO MD (Medical Doctor,Internal Medicine A-26903) [facility] (AD-[id number])) 06/13/2014 Orders Only [address] [phone] Abdi Solo MD 06/12/2014 CPE - Comprehensive Physical Exam [facility] [address] [place] [phone] Diane Blanton MD Routine gynecological examination; Other screening breast examination; Other screening mammogram; Screening for malignant neoplasm of the cervix; Other disorder of menstruation and other abnormal bleeding from female genital tract; Unspecified symptom associated with female genital organs 06/12/2014 Office Visit [address] [phone] Abdi Solo MD Abdominal pain, epigastric; Esophageal reflux; Other diseases of nasal cavity and sinuses(478.19); Cough; Pain in joint, lower leg; Special screening for malignant neoplasms, colon; Need for prophylactic vaccination with combined cimckrcafx-klkpzuy-fq rtussis (DTP) vaccine; Pain in joint, multiple sites; Unspecified vitamin D deficiency; Screening examination for pulmonary tuberculosis 06/06/2014 Letter/Form [facility] [address] [place] [phone] Diane Blanton MD 05/23/2014 Letter/Form [address] [phone] Abdi Solo MD 03/19/2014 Letter/[place] [address] [place] [phone] Abdi Solo MD 03/19/[address] [phone] Abdi Solo MD 03/07/[address] [phone] Abdi Solo MD Other ; Provider (ABDI SOLO MD (Medical Doctor,Internal Medicine A-09096) [facility] (AD-[id number])) 03/06/2014 Orders Only [address] [phone] Abdi Solo MD Medications 03/06/2014 CPE - Comprehensive Physical Exam [address] [phone] Abdi Solo MD Breast screening, unspecified; Pain in joint, multiple sites; Screening for lipoid disorders; Anxiety state, unspecified; Unspecified hearing loss; Asymptomatic varicose veins; Esophageal reflux; Chest pain, unspecified; Need for prophylactic vaccination against Streptococcus pneumoniae (pneumococcus); Routine general medical examination at a health care facility 03/05/[address] [phone] Abdi Solo MD Other (CONFIRM APPT); Provider (ABDI SOLO MD (Medical Doctor,Internal Medicine A-52661) [facility] (AD-[id number])) 01/21/[address] [phone] Abdi Solo MD 01/18/[address] [phone] Abdi Solo MD Other (INFORMATION NEEDED); Provider (ABDI SOLO MD (Medical Doctor,Internal Medicine A-64292) [facility] ([id number])) 01/10/[address] [phone] Abdi Solo MD Other ; Provider (ABDI SOLO MD (Medical Doctor,Internal Medicine A-87734) [facility] (-[id number])) 01/08/[address] [phone] Abdi Solo MD Other (HPC FORM); Medication Problem ; Provider (ABDI SOLO MD (Medical Doctor,Internal Medicine A-23868) [facility] (AD-[id number])) 01/08/[address] [phone] Abdi Solo MD Refill Request ([facility] [address] [place] [address] AT [facility] [phone]); Provider (ABDI SOLO MD (Medical Doctor,Internal Medicine A-62930) [facility] (-[id number])) 12/25/2013 Orders Only [address] [phone] Abdi Solo MD 12/21/[address] [phone] Abdi Solo MD Return Call ; Provider (ABDI SOLO MD (Medical Doctor,Internal Medicine A-89079) [facility] (-[id number])) 12/13/2013 Letter/Form NON FC SA NON FC UNK Provider, Unknown 12/13/2013 Office Visit [address] [phone] Abdi Solo MD Asymptomatic varicose veins; Abdominal pain, epigastric; Anxiety state, unspecified; Insomnia, unspecified; Other diseases of nasal cavity and sinuses; Unspecified hearing loss; Pain in limb 12/07/[address] [phone] Abdi Solo MD Other ; Provider (ABDI SOLO MD (Medical Doctor,Internal Medicine A-53139) [facility] (AD-[id number])) 11/29/2013 Home Visit [address] [phone] Abdi Solo MD 11/29/2013 [employer] [address] [phone] Abdi Solo MD Other unknown and unspecified cause of morbidity or mortality 11/22/2013 Letter/Form [address] [phone] Abdi Solo MD 10/30/[address] [phone] Abdi Solo MD [facility] F/U ; Provider (ABDI SOLO MD (Medical Doctor,Internal Medicine A-36009) [facility] ([id number])) 04/25/2013 Minor Procedure/Test OPHTHAL UNSPECIFIED Provider, Unknown [...] Active Vitamin D3 (VITAMIN D-3) 50 MCG (1999) capsule TAKE 1 CAPSULE BY MOUTH EVERY [...] HCl (PROzac) 10 MG capsule 3 Active HM Lubricating Tears 0.4-0.3 % Solution INSTILL 1 DROP INTO EACH EYE TWICE DAILY. 15 mL 5 Active Active Problems Problem Noted Date Diagnosed [...] Alive Social History Smoking Status as of 03/05/2025 Tobacco Use Types Packs/Day Years Used Date [...] Description 07/08/2025 8:30 AM EDT Office Visit [facility]. Optometry [address] [place] [address] Agus Jacinto, OD [address] [place] [address] *est pt exam, no cl, no dm, 1 year follow up, aodv, *not elig. until 12/23/24, , 12/21* tommie, interp needed, aoir sent te over sent email to [email or web address] Procedures * Due to [place] state law, this organization might not be sharing negative HIV tests. Procedure Name Priority Date/Time Associated Diagnosis Comments [facility] BILATERAL SCREENING DIGITAL MAMMOGRAM WITH CK 09/15/2020 [...] 786.2) FC Routine 10/17/2019 1:38 PM EST [facility] BILATERAL SCREENING DIGITAL MAMMOGRAM WITH CK 09/12/2019 [...] Acute pharyngitis, unspecified etiology US TRANSVAGINAL (FOR EXTENSION CLERK DEPT USE ONLY) Routine 02/24/2017 11:29 AM [...] 10:41 AM EDT BASIC METABOLIC PANEL W/GFR (SMG ONLY) Routine 09/11/2014 10:41 AM EDT VITAMIN [...] 4:52 PM EDT BASIC METABOLIC PANEL W/GFR (SMG ONLY) Routine 06/12/2014 4:52 PM EDT CYCLIC CITRULLINATED PEPTIDE ANTIBODY (IGG) Routine 06/12/2014 4:52 PM EDT NICHO SCREEN W/REFL TITER IFA Routine 06/12/2014 4:52 PM EDT TSH W REFLEX Routine 06/12/2014 4:52 PM EDT RHEUMATOID FACTOR QUANT Routine 06/12/20 4:52 PM EDT C REACTIVE PROTEIN CARDIO [...] TEST/PROCEDURE, UNSPECIFIED 04/25/2013 Results * Due to [place] state law, this organization might not be sharing negative HIV tests. * MYLES BILATERAL SCREENING DIGITAL MAMMOGRAM WITH CK (09/15/2020 2:22 PM EDT) Only the most [...] dense breast tissue shown on mammography. Per [employer] Appropriateness Criteria ??for Breast Cancer Screening (https://acsearch.acr.org/docs/67019/Narrative/) patient may benefit from tomosynthesis on future mammography and supplemental imaging with automated breast ultrasound (ABUS) or breast MRI depending on risk factors. Automated Breast Ultrasound (ABUS) is available at [facility]. To schedule a patient, you can either enter an ABUS order into [facility] (type ABUS), call [facility] at [phone], or fax an external order to [phone]. Breast MRI is available at [facility] ([facility], [facility], and [facility]). To schedule, enter a breast MRI order into [facility] (MRI Breast Bilateral W WO contrast and 3DCAD), call [phone] or [phone], or fax [phone]. Procedure Note [facility], Unknown Provider - 09/15/2020 EXAMINATION MYLES Bilateral [...] of Radiology Appropriateness Criteria for Breast Cancer Screening(https://acsearch.acr.org/docs/72283/Narrative/) patient may benefit fromtomosynthesis on future mammography and supplemental imaging with automated breast ultrasound(ABUS) or breast MRI depending on risk factors. Automated Breast Ultrasound (ABUS) is available at [facility]. To schedule a patient, you can either enter anABUS order into [facility] (type ABUS), call [facility] at [phone], or fax an external order to [phone]. Breast MRI is available at [facility] ([facility], [facility], [facility]). To schedule, enter a breast MRIorder into [facility] (MRI Breast Bilateral W WO contrast and 3DCAD), call [phone] or [phone], orfax [phone]. us Vandana Epps MD IMAGING-[facility] Final Result * CBC INCLUDES DIFFERENTIAL AND PLATELET COUNT (10/23/2019 2:41 PM EST) Only the most recent of5 resultswithin the time period is included. WBC 7.0 3.8 - 10.8 K/uL [facility] Neutrophils # 4.9 1.5 - [...] PM EST 10/23/2019 2:41 PM EST Narrative [facility] - 10/23/2019 3:06 PM EST Patient's primary care provider is: ??N/A Testing performed at: [facility], [address] [place] [address], [address], Draw String Knotter: Seth Gutierrez MD us Vandana Epps MD LAB SAME DAY RESULT Final Resu lt [address] [address] DIRECTOR Seth Gutierrez MD * THYROID STIMULATING HORMONE (TSH) WITH FREE T4 REFLEX, SERUM (10/23/2019 2:41 PM EST) Only the most recent of3 resultswithin the time period is included. TSH (Thyrotropin) 2.41 0.40 - 4.50 uIU/ml [facility] 10/23/2019 2:41 PM EST 10/23/2019 2:41 PM EST Narrative [facility] - 10/23/2019 5:01 PM EST Patient's primary care provider is: ??N/A Testing performed at: [facility], [address] [place] [address], [address], Draw String Knotter: Seth Gutierrez MD Vandana Epps MD LABORATORY Final Result [address] [address] DIRECTOR Seth Gutierrez MD * (ABNORMAL) LIPID PANEL WITH REFLEX TO DIRECT LDL (10/23/2019 2:41 PM EST) Only the most recent of4 resultswithin the time period is included. Cholesterol 165 <200 mg/dL [facility] Triglyceride 137 <150 mg/dL [facility] HDL Cholesterol 40(L) >40 mg/dL [facility] Comment: NCEP GUIDELINES Desirable >60 mg/dL Borderline 40-59 mg/dL ?? Undesirable <40 mg/dL LDL Cholesterol 98 <130 mg/dL [facility] CHOL/HDL Ratio 4 0 - 5 [facility] 10/23/2019 2:41 PM EST 10/23/2019 2:41 PM EST Narrative [facility] - 10/23/2019 5:01 PM EST Patient's primary care provider is: ??N/A Testing performed at: [facility], [address] [place] [address], [address], Draw String Knotter: Seth Gutierrez MD Vandana Epps MD LABORATORY Final Result [address] [address] DIRECTOR Seth Gutierrez MD * COMPREHENSIVE METABOLIC [...] [facility] GFR 83 >60 ml/min [facility] Comment:If the patient is Af rican [place], please multiply result by 1.210 10/23/2019 2:41 PM EST 10/23/2019 2:41 PM EST Narrative [facility] - 10/23/2019 5:01 PM EST Patient's primary care provider is: ??N/A Testing performed at: [facility], [address] [place] [address], [address], Draw String Knotter: Seth Gutierrez MD Vandana Epps MD LABORATORY Final Result [facility] [address] [place] [address] DIRECTOR Seth Gutierrez MD * (ABNORMAL) PULMONARY FUNCTION TEST (10/18/2019 12:00 AM EST) [facility] Pulmonary Function Test Report Test Interpretation [...] ?81 (N) ?109 ? FET ?2.12 ? [id number] ? 2.50 ?1.04 ?3.95 ?1.31 ?53 ? [...] SYSTEM FVC - Mean Predicted 2.73 L [facility] FVC - Upper Limit Predicted 3.59 L [facility] FVC - % Predicted Pre-Bronchodilato r 66 % [facility] FEV0.5 - Pre-Bronchodilato r 1.10 0.85 - 2.57 L [facility] FEV0.5 - Lower Limit Predicted 0.85 L [facility] FEV0.5 - Mean Predicted 1.71 L [facility] FEV0.5 - Upper Limit Predicted 2.57 L [facility] FEV0.5 - % Predicted Pre-Bronchodilato r 65 % [facility] FEV1 - Pre-Bronchodilato r 1.46 1.25 - 2.80 L [facility] FEV1 - Lower Limit Predicted 1.25 L [facility] FEV1 - Mean Predicted 2.03 L [facility] FEV1 - Upper Limit Predicted 2.80 L [facility] FEV1 - % Predicted Pre-Bronchodilato r 72 % [facility] FEV1/FVC - Pre-Bronchodilato r 81 63- % [facility] FEV1/FVC - Lower Limit Predicted 63 % [facility] FEV1/FVC - Mean Predicted 75 % [facility] FEV1/FVC - % Predicted Pre-Bronchodilato r 109 % [facility] JVA12-10 - Pre-Bronchodilato r 1.31 1.04 - 3.95 L/s [facility] [id number] - Lower Limit Predicted 1.04 L/s [facility] CHV78-52 - Mean Predicted 2.50 L/s [facility] TCX34-86 - Upper Limit Predicted 3.95 L/s [facility] PWY43-76 - % Predicted Pre-Bronchodilato r 53 % [facility] FEF25 - Pre-Bronchodilato r 3.09 2.31 - 7.75 L/s [facility] FEF25 - Lower Limit Predicted 2.31 L/s [facility] FEF25 - Mean Predicted 5.03 L/s [facility] FEF25 - Upper Limit Predicted 7.75 L/s [facility] FEF25 - % Predicted Pre-Bronchodilato r 61 % [facility] FEF50 - Pre-Bronchodilato r 1.42 0.28 - 3.49 L/s [facility] FEF50 - Lower Limit Predicted 0.28 L/s [facility] FEF50 - Mean Predicted 1.88 L/s [facility] FEF50 - Upper Limit Predicted 3.49 L/s [facility] FEF50 - % Predicted Pre-Bronchodilato r 76 % [facility] FEF75 - Pre-Bronchodilato r 0.70 0.08 - 2.22 L/s [facility] FEF75 - Lower Limit Predicted 0.08 L/s [facility] FEF75 - Mean Predicted 1.15 L/s [facility] [employer] FEF75 - Upper Limit Predicted 2.22 L/s [facility] FEF75 - % Predicted Pre-Bronchodilato r 61 % [facility] [employer] PEFR - Pre-Bronchodilato r 3.99 2.48 - 8.19 L/s [employer] PEFR - Lower Limit Predicted 2.48 L/s [employer] PEFR - Mean Predicted 5.34 L/s [employer] PEFR - Upper Limit Predicted 8.19 L/s [employer] PEFR - % Predicted Pre-Bronchodilato r 75 % [employer] FEF50/FIF50 - Pre-Bronchodilato r 0.74 [employer] FET - Pre-Bronchodilato r 2.12 s [employer] FIVC - Pre-Bronchodilato r 1.40 1.88 - 3.59 L [employer] FIVC - Lower Limit Predicted 1.88 L [employer] FIVC - Mean Predicted 2.73 L [employer] FIVC - Upper Limit Predicted 3.59 L [employer] FIVC - % Predicted Pre-Bronchodilato r 51 % [facility] PIFR - Pre-Bronchodilato r 1.92 L/s [employer] PIFR - Mean Predicted 3.56 L/s [employer] PIFR - % Predicted Pre-Bronchodilato r 54 % [facility] Pulmonary Function Test Interpretation Office [...] 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 [facility] 10/18/2019 us Eloy Pritchard MD [...] NOT DETECTED STREP GRP A NOT DETECTED [facility] 06/13/2019 2:00 PM EDT 06/13/2019 2:00 PM EDT Narrative [facility] - 06/13/2019 2:39 PM EDT Patient's primary care provider is: ??N/A Lab results sent to critical lab pool 06/13/2019 at 2:38 PM by Technology [employer] (TUGG)SHAKILA Testing performed at: [facility], [address] [place] [address], [address], Draw String Knotter: Seth Gutierrez MD Vandana Epps MD LAB SAME DAY RESULT Final Resu lt [address] [address] DIRECTOR Seth Gutierrez MD * XRAY SPINE, [...] with this patient. Exercise tolerance was poor. us Joaquin Wooten MD CARDIOVASCULAR-WITH INBSKT RT G [...] is not present Confirmed by Batsheva Tamez ([id number]), pictures editor RIKY LEWIS ([id number]) on 10/24/2018 8:02:37 AM MUSE EKG SYSTEM [...] Polypectomy: - Tubular adenoma at ??9:[address] [facility] LAB CLINICAL HISTORY Pre-op diagnosis: same [facility] GROSS DESCRIPTION One specimen is received in formalin labeled with patient name, MRN, and descending polyp . ??It consists of one box soft tissue fragment measuring 0.5 cm in greatest dimension. ??Specimen is entirely submitted in 1A [facility] EMBEDDED IMAGES [facility] RESULTING AGENCY Case was signed out at [facility], Department of Pathology, Biotech 3 CLIA [id number] [facility] REPORT HEADER Surgical Pathology Report ? Case: [id number] ? Authorizing Provider: ??Johnny Potter MD ?Collected: ? 07/18/2018 1231 ? Ordering Location: ? [facility]- ?Received: ?07/18/2018 1445 ? [facility] ? Preoperative Care Unit ? Pathologist: ? Willian Lozano MD ? Specimen: ?Large Intestine, Descending Colon, descending colon polyp, cold snare ? [facility] 07/18/2018 12:3 1 PM EDT Narrative [facility] - 07/19/2018 9:24 AM EDT Pre-op diagnosis: same us Johnny Potter MD PATHOLOGY Final Resul t [facility] [employer] [address] [place] [address] * COLONOSCOPY (07/18/2018 12:04 PM EDT) Narrative Procedure Note Johnny Potter MD - 07/18/2018 12:38 PM EDT Procedures signed by Johnny Potter MD at 07/18/2018 12:38 PM Author: Johnny Potter MD Service: (none) Author Type: Physician Filed: 07/18/2018 12:38 PM Date of Service: 07/18/2018 12:04 PM Status:Signed Health Technician Hearing: Johnny Potter MD (Physician) Procedure Orders: 1. COLONOSCOPY [[id number]] ordered by Johnny Potter MD at Gastroenterology Patient Name: Magda Chesterez Procedure Date: 07/18/2018 12:04 PM Date of : 1965 Admit Type: Outpatient Age: 52 Room: [place] [address] Gender: Female Note Status: Finalized Attending MD: [...] oxygen saturations were monitored continuously. The PCF-H180AL [id number] colonoscope was introduced through the anus andadvanced [...] - Patient has a contact number available [facility]. The signs and symptoms of potential delayedcomplications [...] PM EST) Treponema pallidum Ab NEGATIVE NEGATIVE [facility] Comment: No antibodies to T. pallidum (the agent causing syphilis) were detected in the specimen. This result, however, does not exclude very recent T. pallidum infection; testing of a second specimen, collected 2-4 weeks after this specimen, is recommended if the index of suspicion for recent infection is high. 10/12/2017 1:07 PM EST 10/12/2017 7:10 PM EST Narrative Resulting Agency Comment [id number] us Vandana Epps MD LABORATORY Final Result [facility] [address] [place] [address] * HEPATITIS B SURFACE ANTIGEN (10/12/2017 1:07 PM EST) Hepatitis B virus surface Ag NON-REACTI VE NON-REACT ALEXIS [facility] 10/12/2017 1:07 PM EST 10/12/2017 7:10 PM EST Narrative Resulting Agency Comment [id number] Vandana Epps MD LABORATORY Final Result Performing Organization Address [facility] Co de Phone Number [facility] [address] [place] [address] * HEPATITIS C AB WITH REFLEX TO RNA PCR, SERUM (10/12/2017 1:07 PM EST) Hepatitis C virus Ab NON-REACTI VE NON-REACT ALEXIS [facility] Hepatitis C virus Ab Signal/Cutoff 0.02 <1.00 [facility] 10/12/2017 1:07 PM EST 10/12/2017 7:10 PM EST Narrative Resulting Agency Comment [id number] Vandana Epps MD LABORATORY Final Result Performing Organization Address [facility] Co de Phone Number [facility] [address] [place] [address] * CHLAMYDIA TRACHOMATIS/N. GONORRHOEAE (GC) RNA, TMA (URINE) (10/10/2017 4:30 PM EST) Pathologist [facility] Chlamydia trachomatis rRNA NOT DETECTED NOT DETECTED [facility] Neisseria Gonorrhoeae rRNA NOT DETECTED NOT DETECTED [facility] COMMENT SEE NOTE [facility] Comment: This test was performed using the APTIMA COMBO2 Assay ([employer] The analytical performance characteristics of this assay, when used to test SurePath specimens have been determined by [facility]. 10/10/2017 4:30 PM EST 10/10/2017 10:00 PM EST Narrative Resulting Agency Comment [id number] Diane Blanton MD LABORATORY Final R esult Performing Organization Address City/[facility] Co de Phone Number [facility] [address] [place] [address] * ENT OTORHINOLARYNGOLOGICAL TEST/PROCEDURE, UNSPECIFIED (09/08/2017) Unknown Provider PROCEDURES Final Result * MAMMOGRAPHY-BILATERAL (09/08/2017) Only the most recent of4 resultswithin the time period is included. 09/08/2017 Abdi Solo MD GENERAL IMAGING- OTHER Final R esult * ERYTHROCYTE SEDIMENTATION RATE (ESR), WESTERGREN (06/14/2017 11:32 AM EDT) Sedimentation Rate [place] (ESR) 17 0 - 20 mm/hr [facility] 06/14/2017 11:3 2 AM EDT 06/14/2017 11:32 AM EDT Narrative [facility] - 06/14/2017 1:54 PM EDT Patient's primary care provider is: ??N/A Testing performed at: [facility], [address] [place] [address], [address], Draw String Knotter: Vikas Cyr M.D. Abdi Solo MD LAB SAME DAY RESULT Final Resu lt Performing Organization Address [facility]/ZIP Co de Phone Number [address] [address] DIRECTOR VIKAS CYR M.D. * (ABNORMAL) RHEUMATOID FACTOR, SERUM (06/14/2017 11:29 AM EDT) Rheumatoid Factor (Quant) 26(H) <14 IU/mL [facility] 06/14/2017 11:2 9 AM EDT 06/14/2017 8:03 PM EDT Narrative Resulting Agency Comment [id number] Abdi Solo MD LABORATORY Final Result [facility] [address] [place] [address] * C-REACTIVE PROTEIN (CRP) - INFLAMMATION (06/14/2017 11:29 AM EDT) Pathologist [facility] C reactive protein <0.10 <0.80 mg/dL [facility] Comment: Please be advised that patients taking Carboxypenicillins may exhibit falsely decreased C-Reactive Protein levels due to an analytical interference in this assay. 06/14/2017 11:2 9 AM EDT 06/14/2017 8:03 PM EDT Narrative Resulting Agency Comment [id number] us Abdi Solo MD LABORATORY Final Result Performing Organization Address [facility] de Phone Number [facility] [address] [place] [address] * NICHO SCREEN IFA W/REFLEX TO TITER/PATTERN IFA (06/14/2017 11:29 AM EDT) [facility] NICHO IFA NEGATIVE NEGATIVE [facility] Comment: NICHO IFA is a first line screen for detecting the presence of up to approximately 150 autoantibodies in various autoimmune diseases. A negative NICHO IFA result suggests NICHO-associated autoimmune diseases are not present at this time. Visit Physician FAQs for interpretation of all antibodies in the [place], prevalence, and association with diseases at http://education.[employer] (S[employer])/ faq/TOX901 06/14/2017 11:2 9 AM EDT 06/14/2017 8:03 PM EDT Narrative Resulting Agency Comment [id number] us Abdi Solo MD LABORATORY Final Result Performing Organization Address [facility] de Phone Number [facility] [address] [place] [address] * CYCLIC CITRULLINATEDPEPTIDE CCP AB IGG (06/14/2017 11:29 AM EDT) Pathologist [facility] CCP Ab, IgG <16 UNITS [facility] Comment: Reference Range Negative: ?<20 Weak Positive: ? 20-39 Moderate Positive: ?? 40-59 Strong Positive: ? >59 06/14/2017 11:2 9 AM EDT 06/14/2017 8:03 PM EDT Narrative Resulting Agency Comment [id number] Abdi Solo MD LABORATORY Final Result [facility] [address] [facility] [place] [address] * STREP THROAT (GROUP A) RAPID DETECTION - STATION (04/18/2017) STREP GROUP A, RAPID (THROAT) negative 04/18/2017 Karen Luciano HEALTH FACILITIES SURVEYOR STATION LAB Final Result * US TRANSVAGINAL (FOR EXTENSION CLERK DEPT USE ONLY)FC (02/24/2017 11:29 AM EDT) Anatomical Region Laterality Modality Ultrasound Impressions 03/01/2017 12:28 PM EDT : results given and discussed at time of appt Narrative 03/01/2017 12:28 PM EDT Reason for Ultrasound: Menstrual Problem Method: transvaginal Uterus Measurements: 7.6x4.1x3.3cm smooth contour: ??yes Endometrial stripe measurement: 2.0mm homogeneous Rt OV not seen Lt OV not seen [place]: no free fluid Worsted Winder Comments: Uterus anteverted, homogeneous Ovaries not seen, no adnexal masses seen No free fluid in cds IMPRESSION: Normal but limitted ultrasound Cintia Gómez HEALTH FACILITIES SURVEYOR IMG US OBGYN ORDERABLES Mary Ann l Result * EGD (UPPER GI ENDOSCOPY) (12/24/2016) Narrative Transcriptions Johnny Potter MD - 12/27/2016 12:00 AM EST Johnny Potter MD PROCEDURES Final Resul t * CYTOLOGY/PATHOLOGY/GENETICS UNSPECIFIED (12/24/2016) Johnny Potter MD PATHOLOGY Final Resul t * THINPREP TIS PAP AND HPV MRNA E6/E7 REFLEX HPV 16,18/45 (10/06/2016 4:27 PM EST) Clinical information none given [facility] Comment:{CLINICAL INFORMATIO N: {[id number]) Date last menstrual period 09/30/16 [facility] Comment:{LMP: {[id number]) Date of previous PAP smear NONE GIVEN [facility] Comment:{PREV. PAP: {[id number]) Date of previous biopsy NONE GIVEN [facility] Comment:{PREV. BX: {[id number]) Specimen source (Cvx/Vag) Cervix [facility] Comment:{SOURCE: {[id number]) Statement of Adequacy (Cvx/Vag) Satisfactory for evaluation. Endocervical/rosario sformation zone component absent. [facility] Comment:{STATEMENT OF ADEQUA CY: {[id number]) Cytology, Pap Smear Negative for intraepithelial lesion or malignancy. [facility] Comment:{INTERPRETATION/RESU LT: {[id number]) Cytology study comment (Cvx/Vag) This Pap test has been evaluated with computer assisted technology. [facility] Comment:{COMMENT: {[id number]) Cattle Tester (Cvx/Vag) MXD, CT (ASCP) CT screening location: [place] [address] [facility] Comment:{LEARNING AND DEVELOPMENT CONSULTANT: { [id number]) HPV MRNA E6/E7 Not Detected Not Detected [facility] Comment: {HPV mRNA E6/E7 {[id number]) This test was performed using the APTIMA HPV Assay ([employer] This assay detects E6/E7 viral messenger RNA (mRNA) from 14 high-risk HPV types (16,18,31,33,35,39,45,51,52,56,58,59,66,68). 10/06/2016 4:27 PM EST 10/07/2016 2:45 AM EST Narrative Resulting Agency Comment [id number] [facility] HEALTH FACILITIES SURVEYOR PATHOLOGY-INTERFACED Final R esult [facility] [address] [place] [address] * VITAMIN D, 25-HYDROXY, TOTAL, IMMUNOASSAY (08/19/2016 2:08 PM EDT) VIT D, 25-OH, TOTAL 52 >29 ng/mL [facility] Comment: Vitamin D Status ??25-OH Vitamin D: Deficiency: ? <20 ng/mL Insufficiency: ? 20-29 ng/mL Optimal: ?> or = 30 ng/mL 08/19/2016 2:08 PM EDT 08/19/2016 2:08 PM EDT Narrative [facility] - 08/19/2016 5:09 PM EDT not fasting Patient's primary care provider is: ??N/A Testing performed at: [facility], [address] [place] [address], [address], Draw String Knotter: Vikas Cyr M.D. Abdi Solo MD LABORATORY Final Result Performing Organization Address City/State/[facility] de Phone Number [address] [address] DIRECTOR VIKAS CYR M.D. * ENT OTORHINOLARYNGOLOGICAL TEST/PROCEDURE, UNSPECIFIED (07/26/2016) Narrative Transcriptions Provider, Unknown - 08/13/2016 12:00 AM EDT us Unknown Provider PROCEDURES Final Result * FOOT 3 VIEW - LEFT (03/05/2016 3:35 PM EDT) Only the most recent of3 resultswithin the time period is included. RADIOLOGY REPORT [facility] Department of Radiology [address] [place] [address], [address] Name: MANNY STEIN GALLOLY : 63 Date of Service: 03/05/16 1136 Acct Number: [id number] Order Number: ??[id number] ?Location: [facility] Report Number: [id number] ?Service: REG REF/ Requesting Physician: Xavi Ojeda (THU) Category: ORTHOPEDIC RADIOLOGY ??[facility] Exam: FOOT 3 VIEWS ?? Left Signs/Symptoms: [...] the left Date/Time of Dictation: 03/05/16 1538 Order Clerk (if applicable): Approved By Attending Radiologist: Jose Craven 03/05/16 1538 [facility] Department of Radiology [address] [place] [address], [address] ? [phone] ? [facility] Anatomical Region Laterality Modality Other 03/05/2016 3:35 PM EDT Narrative 03/05/2016 3:39 PM EDT Reason for Study/History: Department of Radiology TEST(S) PROCESSED BY [facility] XRAY us Xavi Ojeda PA [facility] Final Result * UNSPECIFIED MAJOR PROCEDURE (11/10/2015) Narrative Transcriptions Mack Mccarthy - 11/13/2015 12:00 AM EST us Mack Mccarthy PROCEDURES Final Result * HELICOBACTER PYLORI UREA BREATH TEST (UBIT-(R)) (10/28/2015 8:57 AM EST) Urea Breath Test, Infra-Red (Ubit) NOT DETECTED NOT DETECTED [facility] Comment: {HELICOBACTER PYLORI, UREA BREATH TEST {[id number]) Antimicrobials, proton pump inhibitors, and bismuth preparations are known to suppress H. pylori, and ingestion of these prior to H. pylori diagnostic testing may lead to false negative results. If clinically indicated, the test may be repeated on a new specimen obtained two weeks after discontinuing treatment. 10/28/2015 8:57 AM EST 10/28/2015 2:27 PM EST Narrative Resulting Agency Comment [id number] us John Oviedo MD LABORATORY Final Resu lt [facility] [address] [place] [address] * CT - THORAX W/O CONTRAST THEN W/CONTRAST AND MORE SECTIONS (10/22/2015) Only the most recent of2 resultswithin the time period is included. 10/22/2015 Narrative Transcriptions Abdi Solo MD - 11/05/2015 12:00 AM EST us Abdi Solo MD CONTRAST STUDY- OTHER Final [...] Nondisplaced fracture of the distal third metatarsal us Karen Luciano HEALTH FACILITIES SURVEYOR IMG XRAY NO CONTRAST ORDERABLES Final Result * DERMATOPHAGOIDESPTERONYSSINUS (D1) IGE (09/01/2015 2:10 PM EDT) Only the most recent of2 resultswithin the time period is included. Dermatophagoidespteronyssinu s (D1) IgE <0.35 kU/L [facility] Comment:{DERMATOPHAGOIDES PT ERONYSSINUS (D1) IGE {[id number]) Dermatophagoides pteronyssin us (D1) Class 0 [facility] Comment:{CLASS {[id number]) 09/01/2015 2:10 PM EDT 09/01/2015 7:51 PM EDT Narrative Resulting Agency Comment [id number] John Oviedo MD LABORATORY Final Resu lt Performing Organization Address [facility] de Phone Number [facility] [address] [place] [address] * DERMATOPHAGOIDES FARINAE (D2) IGE (09/01/2015 2:10 PM EDT) Only the most recent of2 resultswithin the time period is included. Dermatophagoides Farinae(D2) IgE <0.35 kU/L [facility] Comment:{DERMATOPHAGOIDES FA RINAE (D2) IGE {[id number]) Dermatophagoides Farinae(D2) Class 0 [facility] Comment:{CLASS {[id number]) 09/01/2015 2:10 PM EDT 09/01/2015 7:51 PM EDT Narrative Resulting Agency Comment [id number] John Oviedo MD LABORATORY Final Resu lt Performing Organization Address [facility] de Phone Number [facility] [address] [place] [address] * (ABNORMAL) HELICOBACTER PYLORI IGGANTIBODY (08/13/2015 2:50 PM EDT) Helicobacter pylori Ab.IgG POSITIVE (A) NEGATIVE [facility] Comment: {HELICOBACTER PYLORI ANTIBODY (IGG) {[id number]) Measurement of antibodies to H. pylori is not recommended for the diagnosis of active infection. The [place] and the [place] [employer] recommend either the urea breath test or the fecal antigen test for diagnosis and confirmation of eradication in cases of suspected or proven H. pylori infection. Effective September 15, 2015 Helicobacter(H) pylori antibody testing ??will no longer be offered at [facility]. We are pleased to offer ACG and AGA recommended testing for ACTIVE infection with either H. pylori Stool Antigen (test code 76314[X]) or H. pylori Urea Breath Test (11628[X] for adult patients and 91109 for pediatric patients). For more information on testing for ACTIVE H. pylori infection, please see http://[email or web address].[email or web address].[employer]/insights/61 08/13/2015 2:50 PM EDT 08/14/2015 12:47 AM EDT Narrative Resulting Agency Comment [id number] us John Oviedo MD LABORATORY Final Resu lt [facility] [address] [place] [address] * ALLERGEN (IGE), CONV. RAST-EDWINA CAMPUZANO (672) (08/13/2015 2:50 PM EDT) [facility] Edwina Campuzano IgE <0.10 <0.35 kU/L [facility] Comment:{ALLERGEN SPECIFIC I GE EDWINA SHGBRK(C.OVATA) {[id number]) Edwina Campuzano Class 0 [facility] Comment: {CLASS {[id number]) This conventional RAST uses allergen-coated discs from several suppliers and an isotope-labeled anti-IgE. IgE Conc (kU/L) ? Class ?Interpretation <0.10 ? 0 ?Below Detection 0.10-0.34 ? 0/1 ?Equivocal/Borderline 0.35-0.69 ? 1 ?Low Positive 0.70-3.49 ? 2 ?Moderate Positive 3.50-17.49 ?3 ?Positive >17.49 ?4 ?Strong Positive *This test was developed and its performance characteristics determined by [facility]. It has not been cleared or approved by the U.S. Food and Drug Administration. 08/13/2015 2:50 PM EDT 08/14/2015 12:47 AM EDT Narrative Resulting Agency Comment [id number] us John Oviedo MD LABORATORY Final Resu lt Performing Organization Address [facility] de Phone Number [facility] [address] [place] [address] * SHEEP SORREL (W18) IGE (08/13/2015 2:50 PM EDT) [place] IgE <0.35 kU/L [facility] Comment:{SHEEP SORREL (W18) IGE {[id number]) [place] (W18) Class 0 [facility] Comment:{CLASS {[id number]) 08/13/2015 2:50 PM EDT 08/14/2015 12:47 AM EDT Narrative Resulting Agency Comment [id number] us John Oviedo MD LABORATORY Final Resu lt Performing Organization Address [facility] de Phone Number [facility] [address] [place] [id number] * FLETCHER'S QUARTER (GOOSE FOOT) (W10) IGE (08/13/2015 2:50 PM EDT) [place] ([place]) (W10) IgE <0.35 kU/L [facility] Comment:{FLETCHER'S QUARTERS (GO OSE FOOT) (W10) IGE {[id number]) [place] ([place]) (W10) Class 0 [facility] Comment:{CLASS {[id number]) 08/13/2015 2:50 PM EDT 08/14/2015 12:47 AM EDT Narrative Resulting Agency Comment [id number] us John Oviedo MD LABORATORY Final Resu lt Performing Organization Address [facility] de Phone Number [facility] [address] [place] [address] * ALLISON GRASS (G10) IGE (08/13/2015 2:50 PM EDT) [place] (G10) IgE <0.35 kU/L [facility] Comment:{ALLISON GRASS (G10) IGE {[id number]) [place] (G10) Class 0 [facility] Comment:{CLASS {[id number]) 08/13/2015 2:50 PM EDT 08/14/2015 12:47 AM EDT Narrative Resulting Agency Comment [id number] us John Oviedo MD LABORATORY Final Resu lt Performing Organization Address [facility] de Phone Number [facility] [address] [place] [address] * GIANT RAGWEED (TALL) (W3)IGE (08/13/2015 2:50 PM EDT) Ragweed Giant IgE <0.35 kU/L [facility] Comment:{GIANT RAGWEED (TALL ) (W3) IGE {[id number]) Giant Ragweed (Tall) (W3) Class 0 [facility] Comment:{CLASS {[id number]) 08/13/2015 2:50 PM EDT 08/14/2015 12:47 AM EDT Narrative Resulting Agency Comment [id number] us John Oviedo MD LABORATORY Final Resu lt Performing Organization Address [facility]/ZIP Co de Phone Number [facility] [address] [place] [address] * ELM (T8) IGE (08/13/2015 2:50 PM EDT) Elm (T8) IgE <0.35 kU/L [facility] Comment:{ELM (T8) IGE {[id number]) [place]m (T8) Class 0 [facility] Comment:{CLASS {[id number]) 08/13/2015 2:50 PM EDT 08/14/2015 12:47 AM EDT Narrative Resulting Agency Comment [id number] us John Oviedo MD LABORATORY Final Resu lt Performing Organization Address [facility] de Phone Number [facility] [address] [place] [address] * DOG DANDER (E5) IGE (08/13/2015 2:50 PM EDT) Dog Dander (E5) IgE <0.35 kU/L [facility] Comment:{DOG DANDER (E5) IGE {[id number]) Dog Dander (E5) Class 0 [facility] Comment:{CLASS {[id number]) 08/13/2015 2:50 PM EDT 08/14/2015 12:47 AM EDT Narrative Resulting Agency Comment [id number] us John Oviedo MD LABORATORY Final Resu lt Performing Organization Address [facility] Co de Phone Number [facility] [address] [place] [address] * COMMON RAGWEED (SHORT) (W1) IGE (08/13/2015 2:50 PM EDT) Common Ragweed (Short)(W1) IgE <0.35 kU/L [facility] Comment:{COMMON RAGWEED (AJ RT) (W1) IGE {[id number]) Common Ragweed (Short)(W1) Class 0 [facility] Comment:{CLASS {[id number]) 08/13/2015 2:50 PM EDT 08/14/2015 12:47 AM EDT Narrative Resulting Agency Comment [id number] us John Oviedo MD LABORATORY Final Resu lt Performing Organization Address [facility] Co de Phone Number [facility] [address] [place] [address] * COCKROACH (I6) IGE (08/13/2015 2:50 PM EDT) Cockroach (I6) IgE <0.35 kU/L [facility] Comment:{COCKROACH (I6) IGE {[id number]) Cockroach (I6) Class 0 [facility] Comment:{CLASS {[id number]) 08/13/2015 2:50 PM EDT 08/14/2015 12:47 AM EDT Narrative Resulting Agency Comment [id number] us John Oviedo MD LABORATORY Final Resu lt Performing Organization Address [facility] Co de Phone Number [facility] [address] [place] [address] * CLADOSPORIUM HERBARUM (M2) IGE (08/13/2015 2:50 PM EDT) Cladosporium Herbarum (M2) IgE <0.35 kU/L [facility] Comment:{CLADOSPORIUM HERBAR UM (M2) IGE {[id number]) Cladosporium Herbarum(M2) Class 0 [facility] Comment:{CLASS {[id number]) 08/13/2015 2:50 PM EDT 08/14/2015 12:47 AM EDT Narrative Resulting Agency Comment [id number] us John Oviedo MD LABORATORY Final Resu lt Performing Organization Address [facility] Co de Phone Number [facility] [address] [place] [address] * BIRCH (T3) IGE (08/13/2015 2:50 PM EDT) Birch (T3) IgE <0.35 kU/L [facility] Comment:{BIRCH (T3) IGE {[id number]) Birch (T3) Class 0 [facility] Comment:{CLASS {[id number]) 08/13/2015 2:50 PM EDT 08/14/2015 12:47 AM EDT Narrative Resulting Agency Comment [id number] us John Oviedo MD LABORATORY Final Resu lt Performing Organization Address [facility] de Phone Number [facility] [address] [place] [address] * BERMUDA GRASS (G2) IGE (08/13/2015 2:50 PM EDT) [place] Grass (G2) IgE <0.35 kU/L [facility] Comment:{BERMUDA GRASS (G2) IGE {[id number]) [place] Grass (G2) Class 0 [facility] Comment:{CLASS {[id number]) 08/13/2015 2:50 PM EDT 08/14/2015 12:47 AM EDT Narrative Resulting Agency Comment [id number] us John Oviedo MD LABORATORY Final Resu lt Performing Organization Address [facility] de Phone Number [facility] [address] [place] [address] * ASPERGILLUS FUMIGATUS(M3) IGE (08/13/2015 2:50 PM EDT) Aspergillus Fumigatus (M3) IgE <0.35 kU/L [facility] Comment:{ASPERGILLUS FUMIGAT US (M3) IGE {[id number]) Aspergillus Fumigatus(M3) Class 0 [facility] Comment:{CLASS {[id number]) 08/13/2015 2:50 PM EDT 08/14/2015 12:47 AM EDT Narrative Resulting Agency Comment [id number] us John Oviedo MD LABORATORY Final Resu lt Performing Organization Address [facility] Co de Phone Number [facility] [address] [place] [address] * ALTERNARIA ALTERNATA (M6)IGE (08/13/2015 2:50 PM EDT) Alternaria Alternata (M6) IgE <0.35 kU/L [facility] Comment:{ALTERNARIA ALTERNAT A (M6) IGE {[id number]) Alternaria Alternata (M6) Class 0 [facility] Comment:{CLASS {[id number]) 08/13/2015 2:50 PM EDT 08/14/2015 12:47 AM EDT Narrative Resulting Agency Comment [id number] us John Oviedo MD LABORATORY Final Resu lt Performing Organization Address [facility] de Phone Number [facility] [address] [place] [address] * MAPLE (BOX ELDER) (T1) IGE (08/13/2015 2:50 PM EDT) Maple (Avery) (T1) IgE <0.35 kU/L [facility] Comment:{MAPLE (BOX ELDER) ( T1) IGE {[id number]) Maple ([place]) (T1) Class 0 [facility] Comment:{CLASS {[id number]) 08/13/2015 2:50 PM EDT 08/14/2015 12:47 AM EDT Narrative Resulting Agency Comment [id number] John Oviedo MD LABORATORY Final Resu lt Performing Organization Address [facility] Co de Phone Number [facility] [address] [place] [address] * OAK (T7) IGE (08/13/2015 2:50 PM EDT) [place] (T7) IgE <0.35 kU/L [facility] Comment:{OAK (T7) IGE {[id number]) [place] (T7) Class 0 [facility] Comment:{CLASS {[id number]) 08/13/2015 2:50 PM EDT 08/14/2015 12:47 AM EDT Narrative Resulting Agency Comment [id number] us John Oviedo MD LABORATORY Final Resu lt Performing Organization Address [facility] Co de Phone Number [facility] [address] [place] [address] * WHITE GERALD (T15) IGE (08/13/2015 2:50 PM EDT) White Gerald (T15) IgE <0.35 kU/L [facility] Comment:{WHITE GERALD (T15) IGE {[id number]) White Gerald (T15) Class 0 [facility] Comment:{CLASS {[id number]) 08/13/2015 2:50 PM EDT 08/14/2015 12:47 AM EDT Narrative Resulting Agency Comment [id number] us John Oviedo MD LABORATORY Final Resu lt Performing Organization Address [facility] de Phone Number [facility] [address] [place] [address] * GAGE GRASS (G6) IGE (08/13/2015 2:50 PM EDT) Gage Grass (G6) IgE <0.35 kU/L [facility] Comment:{GAGE GRASS (G6) IGE {[id number]) Gage Grass (G6) Class 0 [facility] Comment:{CLASS {[id number]) 08/13/2015 2:50 PM EDT 08/14/2015 12:47 AM EDT Narrative Resulting Agency Comment [id number] us John Oviedo MD LABORATORY Final Resu lt Performing Organization Address [facility] Co de Phone Number [facility] [address] [place] [address] * CAT EPITHELIUM ANDDANDER (E1) IGE (08/13/2015 2:50 PM EDT) Cat Dander (E1) IgE <0.35 kU/L [facility] Comment:{CAT DANDER (E1) IGE {[id number]) Cat Dander (E1) Class 0 [facility] Comment:{CLASS {[id number]) 08/13/2015 2:50 PM EDT 08/14/2015 12:47 AM EDT Narrative Resulting Agency Comment [id number] us John Oviedo MD LABORATORY Final Resu lt Performing Organization Address City/[facility]/ZIP Co de Phone Number [facility] [address] [place] [address] * IGE, SERUM (08/13/2015 2:50 PM EDT) IgE 13 <NO=722 kU/L [facility] Comment:{IMMUNOGLOBULIN E {[id number]) 08/13/2015 2:50 PM EDT 08/14/2015 12:47 AM EDT Narrative Resulting Agency Comment [id number] us John Oviedo MD LABORATORY Final Resu lt Performing Organization Address [facility] Co de Phone Number [facility] [address] [place] [address] * (ABNORMAL) CULTURE, URINE, ROUTINE (06/26/2015 5:24 PM EDT) [place] count (Urine) >50,000 CFU/ml [facility] Bacteria culture (Urine) Mixed Culture,Repeat if Clinically Indicated(A) No Growth [facility] 06/26/2015 5:24 PM EDT 06/26/2015 5:24 PM EDT Narrative [facility] - 06/28/2015 8:11 AM EDT Patient's primary care provider is: ??N/A Testing performed at: [facility], [address] [place] [address], [address], Draw String Knotter: Vikas Cyr M.D. us Diane Blanton MD LABORATORY Final R esult Performing Organization Address [facility]/ZIP Co de Phone Number [address] [address] DIRECTOR VIKAS CYR M.D. * URINALYSIS, COMPLETE [...] PM EDT 06/26/2015 5:24 PM EDT Narrative [facility] - 06/26/2015 7:12 PM EDT Patient's primary care provider is: ??N/A Testing performed at: [facility], [address] [place] [address], [place], [address], Draw String Knotter: Vikas Cyr M.D. Diane Blanton MD LAB SAME DAY RESULT Fin al Result Performing Organization Address [facility]/ZIP Co de Phone Number [address] [address] DIRECTOR VIKAS CYR M.D. * BV/VAGINITIS PANELDNA PROBE (06/26/2015 5:23 PM EDT) Trichomonas vaginalis rRNA (Genital) NOT DETECTED NOT DETECTED [facility] Comment:{TRICHOMONAS: {[id number]) Gardnerella vaginalis rRNA (Genital) NOT DETECTED NOT DETECTED [facility] Comment:{GARDNERELLA: {[id number]) Nelly sp rRNA (Vag) NOT DETECTED NOT DETECTED [facility] Comment:{NELLY: {[id number]) 06/26/2015 5:23 PM EDT 06/26/2015 11:16 PM EDT Narrative Resulting Agency Comment [id number] Diane Blanton MD LABORATORY Final R esult [facility] [address] [place] [address] * UNSPECIFIED MAJOR PROCEDURE (06/12/2015) Narrative Transcriptions [...] patellofemoral spurring consistent with osteoarthritis. Buffy Capps HEALTH FACILITIES SURVEYOR IMG XRAY NO CONTRAST ORDERABLE S Final Result * TSH (04/10/2015 9:45 AM EDT) Only the most recent of2 resultswithin the time period is included. [facility] Thyroid Stimulating Hormone 3.93 0.40 - 4.50 uIU/ml 04/10/2015 1:10 PM EDT [facility] 04/10/2015 9:45 AM EDT 04/10/2015 9:45 AM EDT Narrative [facility] - 04/10/2015 12:00 AM EDT Patient's primary care provider is: ??Abdi Solo Abdi Solo MD LABORATORY Final Result Performing Organization Address [facility] Co de Phone Number [facility] * (ABNORMAL) SED RATE (04/10/2015 9:45 AM EDT) Only the most recent of2 resultswithin the time period is included. [facility] Erythrocyte Sedimentation Rate 22(H) 0 - 20 mm/hr 04/10/2015 1:42 PM EDT [facility] 04/10/2015 9:45 AM EDT 04/10/2015 9:45 AM EDT Narrative [facility] - 04/10/2015 12:00 AM EDT Patient's primary care provider is: ??Abdi Solo Abdi Solo MD LABORATORY Final Result Performing Organization Address City/[facility]/ZIP Co de Phone Number [facility] * T4, FREE (04/10/2015 9:45 AM EDT) Only the most recent of2 resultswithin the time period is included. Pathologist [facility] Free Thyroxine (Free T4) 1.2 0.8 - 1.8 ng/dL 04/12/2015 12:41 PM EDT [facility] 04/10/2015 9:45 AM EDT 04/10/2015 9:45 AM EDT [facility] HISTORICAL LAB - 04/12/2015 12:00 AM EDT Patient's primary care provider is: ??Abdi Solo Testing performed at: [facility], [address],[place], [address], Draw String Knotter: JAMES MARIO MD Abdi Solo MD LABORATORY Final Result Performing Organization Address [facility] de Phone Number [facility] * VITAMIN B12 (04/10/2015 9:45 AM EDT) [facility] Vitamin B12 412 200 - 1100 pg/mL 04/11/2015 11:45 AM EDT [facility] 04/10/2015 9:45 AM EDT 04/10/2015 9:45 AM EDT [facility] - 04/11/2015 12:00 AM EDT Patient's primary care provider is: ??Abdi Solo Testing performed at: [facility], [address],[place], [address], Draw String Knotter: JAMES MARIO MD Abdi Solo MD LABORATORY Final Result Performing Organization Address City/[facility] Co de Phone Number [facility] * (ABNORMAL) PROTEIN ELECTROPHORESIS, SERUM (04/10/2015 9:45 AM EDT) [facility] Protein Total (Serum) 7.5 6.1 - 8.1 g/dL 04/14/2015 10:10 AM EDT [facility] Albumin 4.2 3.5 - 4.7 g/dL 04/14/2015 10:10 AM EDT [facility] Alpha 1 Globulin 0.3 0.1 - 0.3 g/dL 04/14/2015 10:10 AM EDT [facility] Alpha 2 Globulin 0.6 0.5 - 1.0 g/dL 04/14/2015 10:10 AM EDT [facility] Beta Globulin 0.9 0.8 - 1.4 g/dL 04/14/2015 10:10 AM EDT [facility] Gamma Globulin 1.7(H) 0.6 - 1.6 g/dL 04/14/2015 10:10 AM EDT [facility] SPEP Interpretation SEE NOTE 04/14/2015 10:10 AM EDT [facility] Comment: Polyclonal increase in gamma globulins suggesting non-specific chronic inflammatory pattern. 04/10/2015 9:45 AM EDT 04/10/2015 9:45 AM EDT Narrative [facility] - 04/14/2015 12:00 AM EDT Patient's primary care provider is: ??Abdi Solo Testing performed at: [facility], [address] [place] [address],[place], [address], Draw String Knotter: JAMES MARIO MD Abdi Solo MD LABORATORY Final Result [facility] * C-REACTIVE PROTEIN QUANTITATIVE (04/10/2015 9:45 AM EDT) C-Reactive Protein 0.15 <0.80 mg/dL 04/12/2015 12:47 PM EDT [facility] Comment: Please be advised that patients taking Carboxypenicillins may exhibit falsely decreased C-Reactive Protein levels due to an analytical interference in this assay. 04/10/2015 9:45 AM EDT 04/10/2015 9:45 AM EDT Narrative [facility] - 04/12/2015 12:00 AM EDT Patient's primary care provider is: ??Abdi Solo Testing performed at: [facility], [address] [place] [address],[address], [place], [address], Draw String Knotter: JAMES MARIO MD Abdi Solo MD LABORATORY Final Result [facility] * VITAMIN D 25-HYDROXY TOTAL ONLY (04/10/2015 9:45 AM EDT) Only the most recent of4 resultswithin the time period is included. [facility] Vitamin D, 25 Hydroxy Total 40 30 - 100 ng/mL 04/12/2015 12:41 PM EDT [facility] Comment: Vitamin D Status ? 25-OH Vitamin D: Deficiency: ?<20 ng/mL Insufficiency: ? 20 - 29 ng/mL Optimal: ? > or = 30 ng/mL For 25-OH Vitamin D testing on patients on D2-supplementation and patients for whom quantitation of D2 and D3 fractions is required, the QuestAssureD(TM) 25-OH VIT D, (D2,D3), LC/MS/MS is recommended: order code 63904 (patients >2yrs). For more information on this test, go to: http://education.[employer]/faq/FTK534 Effective March 31, the test order code 49112, used prior to March 31, for LC/MS/MS, will be transitioned to a carefully-selected immunoassay methodology. ??The new immunoassay has passed CDC standardization certification and provides high quality quantitative results that are tied back to standards from the NIST. For those patients for whom LC/MS/MS testing is appropriate, please utilize test code 22810. When LC/MS/MS is the chosen assay, utilize test code 14283 for patients > or = 3 years of age, patients who are on D2 supplementation, and patients for whom a separate D2 and D3 measurement is required. For patients <3 years of age, test code 58588 should be used. Important Note Regarding Custom Panels With 25-Hydroxyvitamin D: If you currently order vitamin D testing as part of a custom panel, the LC/MS/MS vitamin D test will be maintained in your panel after March 31, 2015. If you would like to replace the test in your panel with the new immunoassay, or have any questions regarding the transition of the 47489 test code, please contact your local [employer] sales associate. 04/10/2015 9:45 AM EDT 04/10/2015 9:45 AM EDT Narrative [facility] - 04/12/2015 12:00 AM EDT Patient's primary care provider is: ??Abdi Solo Testing performed at: [facility], [address] [place] [address] [address] [facility],[address], [place], [address], Draw String Knotter: JAMES MARIO MD us Abdi Solo MD LABORATORY Final Result [facility] * PROTEIN ELECTROPHORESIS RANDOM URINE (04/10/2015 9:45 AM EDT) Creatinine (Urine) 59 20 - 320 mg/dL 04/14/2015 10:10 AM EDT [facility] Protein/Creatinine (24Hr Urine) 119 21 - 161 mg/g creat 04/14/2015 10:10 AM EDT [facility] Protein (Urine) 7 5 - 24 mg/dL 04/14/2015 10:10 AM EDT [facility] Microalbumin/Creat inine Ratio 100 % 04/14/2015 10:10 AM EDT [facility] Alpha 1 Globulin (24Hr Urine) 0 % 04/14/2015 10:10 AM EDT [facility] Alpha 2 Globulin (24Hr Urine) 0 % 04/14/2015 10:10 AM EDT [facility] Beta globulin/Protein.T otal (24Hr Urine) 0 % 04/14/2015 10:10 AM EDT [facility] Gamma Globulins, 24 Hr Urine 0 % 04/14/2015 10:10 AM EDT [facility] UPEP Interpretation SEE NOTE 04/14/2015 10:10 AM EDT [facility] Comment: Normal Pattern 04/10/2015 9:45 AM EDT 04/10/2015 9:45 AM EDT Narrative [facility] - 04/14/2015 12:00 AM EDT Patient's primary care provider is: ??Abdi Solo Testing performed at: [facility], [address] [place] [address] [address], [place], [address], Draw String Knotter: JAMES MARIO MD Abdi Solo MD LABORATORY Final Result [facility] * HEMOGRAM (CBC) W AUTO DIFF RFLX MAN DIFF (04/10/2015 9:45 AM EDT) Only the most recent of2 resultswithin the time period is included. Leukocytes 8.4 3.8 - 10.8 K/uL 04/10/2015 12:[address] [facility] Neutrophils # 6.2 3.3 - 6.3 K/uL 04/10/2015 12:[address] [facility] Granulocytes 0.03 0.00 - 0.07 K/uL 04/10/2015 12:[address] [facility] Lymphocytes # 1.4 0.9 - 3.9 K/uL 04/10/2015 12:[address] [facility] Monocytes # 0.7 0.2 - 1.0 K/uL 04/10/2015 12:[address] [facility] Eosinophils # 0.1 0.0 - 0.2 K/uL 04/10/2015 12:[address] [facility] Basophils # 0.0 0.0 - 0.2 K/uL 04/10/2015 12:[address] [facility] Neutrophils % 73.5 48.0 - 77.7 % 04/10/2015 12:[address] [facility] Granulocytes/100 leukocytes 0.40 0.00 - 0.90 % 04/10/2015 12:[address] [facility] Lymphocytes/100 leukocytes 16.6 10.0 - 38.0 % 04/10/2015 12:[address] [facility] Monocytes/100 Leukocytes 8.3 0.0 - 14.0 % 04/10/2015 12:[address] [facility] Eosinophils 1.0 0.0 - 5.0 % 04/10/2015 12:[address] [facility] Basophils 0.2 0.0 - 3.0 % 04/10/2015 12:[address] [facility] Erythrocytes 4.12 3.80 - 5.10 M/uL 04/10/2015 12:23 PM EDT [facility] Hemoglobin 12.4 11.7 - 15.5 g/dL 04/10/2015 12:23 PM EDT [facility] Hematocrit 37.0 35.0 - 45.0 % 04/10/2015 12:23 PM EDT [facility] Mean Corpuscular Volume 89.8 80.0 - 100.0 fl 04/10/2015 12:23 PM EDT [facility] Mean Corpuscular Hemoglobin 30.1 27.0 - 33.0 pg 04/10/2015 12:23 PM EDT [facility] Mean Corpuscular Hemoglobin Conc 33.5 32.0 - 36.0 g/dL 04/10/2015 12:23 PM EDT [facility] RDW 12.9 11.0 - 15.0 % 04/10/2015 12:23 PM EDT [facility] Platelets 247 140 - 400 K/uL 04/10/2015 12:23 PM EDT [facility] 04/10/2015 9:45 AM EDT 04/10/2015 9:45 AM EDT Narrative [facility] - 04/10/2015 12:00 AM EDT Patient's primary care provider is: ??Abdi Solo us Abdi Solo MD LABORATORY Final Result [facility] * COMPREHENSIVE METABOLIC PROFILE W/GFR ([facility]) (04/10/2015 9:45 AM EDT) Only the most recent of2 resultswithin the time period is included. Glucose 65 65 - 99 mg/dl 04/10/2015 1:10 PM EDT [facility] Urea Nitrogen Blood (BUN) 13 7 - 25 mg/dL 04/10/2015 1:10 PM EDT [facility] Creatinine 0.69 0.50 - 1.16 mg/dL 04/10/2015 1:10 PM EDT [facility] Sodium 137 136 - 145 mmo/L 04/10/2015 1:10 PM EDT [facility] Potassium 4.0 3.5 - 5.3 mmol/L 04/10/2015 1:10 PM EDT [facility] Chloride 100 98 - 107 mmo/L 04/10/2015 1:10 PM EDT [facility] Calcium 9.9 8.5 - 10.4 mg/dL 04/10/2015 1:10 PM EDT [facility] Protein Total (Serum) 7.8 6.0 - 8.3 g/dL 04/10/2015 1:10 PM EDT [facility] Albumin 4.5 3.5 - 5.2 g/dL 04/10/2015 1:10 PM EDT [facility] Globulin 3 2 - 4 G/DL 04/10/2015 1:10 PM EDT [facility] Bilirubin, Total 0.40 0.20 - 1.50 mg/dL 04/10/2015 1:10 PM EDT [facility] Alkaline Phosphatase 60 33 - 130 U/L 04/10/2015 1:10 PM EDT [facility] [place] [facility] AST (SGOT) 18 <38 U/L 04/10/2015 1:10 PM EDT [facility] [place] [facility] ALT (SGPT) 17 <47 U/L 04/10/2015 1:10 PM EDT [facility] [place] [facility] Carbon Dioxide 28 23 - 33 mmol/L 04/10/2015 1:10 PM EDT [facility] [place] [facility] Glomerular Filtration Rate,Est 96 >60 ml/min 04/10/2015 1:10 PM EDT [facility] [place] [facility] Comment: For patients greater than 18 years of and and if the patient is , please multiply result by 1.210 04/10/2015 9:45 AM EDT 04/10/2015 9:45 AM EDT Narrative [facility] [place] [facility] - 04/10/2015 12:00 AM EDT Patient's primary care provider is: ??Abdi Solo us Abdi Solo MD LABORATORY Final Result [facility] [place] [facility] * COLONOSCOPY (01/15/2015 12:00 AM EST) ATTACHED DOCUMENT 01/15/2015 12:00 AM EST ATTACHED DOCUMENT 01/15/2015 12:00 AM EST 01/15/2015 01/15/2015 Narrative Transcriptions Abdi Solo MD - 05/23/2015 12:00 AM EDT Abdi Solo MD - 05/26/2015 12:00 AM EDT Abdi Solo MD PROCEDURES Final Result * (ABNORMAL) URINE CULTURE (09/11/2014 10:41 AM EDT) [place] Count <50,000 0.00 - 0.00 CFU/ml 09/13/2014 7:56 AM EDT [facility] Urine Culture Mixed Culture,Repeat if Clinically Indicated(A) No Growth 09/13/2014 7:56 AM EDT [facility] 09/11/2014 10:4 1 AM EDT 09/11/2014 10:41 AM EDT Narrative [facility] - 09/13/2014 12:00 AM EDT non fasting Patient's primary care provider is: ??Abdi Solo Source: CLEAN CATCH URINE us Abdi Solo MD LABORATORY Final Result [facility] * (ABNORMAL) URINALYSIS W MICROSCOPIC (09/11/2014 10:41 AM EDT) Color (Urine) Yellow Yellow 09/11/2014 12:48 PM EDT [facility] Appearance (Urine) Clear Clear 09/11/2014 12:48 PM EDT [facility] PH (Urine) 8.0 5.0 - 8.0 09/11/2014 12:48 PM EDT [facility] Specific Aneta (Urine) 1.020 1.005 - 1.030 09/11/2014 12:48 PM EDT [facility] Glucose (Urine) Negative Negative 4 12:48 PM EDT [facility] Bilirubin (Urine) Negative Negative 09/11/2014 12:48 PM EDT [facility] Ketones (Urine) Negative Negative 4 12:48 PM EDT [facility] Protein (Urine) Negative Negative 4 12:48 PM EDT [facility] Urobilinogen (Urine) 1.0 E.U./dL 0.0 - 1.0 EU/dl 09/11/2014 12:48 PM EDT [facility] Nitrite (Urine) Negative Negative 4 12:48 PM EDT [facility] Blood (Urine) Negative Negative 09/11/2014 12:48 PM EDT [facility] Leukocyte Esterase (Urine) Negative Negative 09/11/2014 12:48 PM EDT [facility] Leukocytes (Urine) 0-2(A) NONE SEEN 09/11/2014 12:48 PM EDT [facility] RBC (Urine Sed) 0-2(A) NONE SEEN 4 12:48 PM EDT [facility] Epithelial Cells (Urine Sed) MODERATE(A) NONE SEEN 09/11/2014 12:48 PM EDT [facility] Casts (Urine) NONE SEEN NONE SEEN 09/11/2014 12:48 PM EDT [facility] Crystals (Urine sed) NONE SEEN NONE SEEN 09/11/2014 12:48 PM EDT [facility] Bacteria (Urine) TRACE(A) NONE SEEN 09/11/20 14 12:48 PM EDT [facility] 09/11/2014 10:4 1 AM EDT 09/11/2014 10:41 AM EDT Narrative [facility] - 09/11/2014 12:00 AM EDT non fasting Patient's primary care provider is: ??Abdi Solo us Abdi Solo MD LABORATORY Final Result [facility] * BASIC METABOLIC PANEL W/GFR ([facility]) (09/11/2014 10:41 AM EDT) Only the most recent of2 resultswithin the time period is included. [facility] Signature Glucose 93 65 - 99 mg/dl 09/11/2014 12:50 PM EDT [facility] Urea Nitrogen Blood (BUN) 15 7 - 25 mg/dL 09/11/2014 12:50 PM EDT [facility] Creatinine 0.68 0.50 - 1.16 mg/dL 09/11/2014 12:50 PM EDT [facility] Sodium 137 136 - 145 mmo/L 09/11/2014 12:50 PM EDT [facility] Potassium 4.1 3.5 - 5.3 mmol/L 09/11/2014 12:50 PM EDT [facility] Chloride 98 98 - 107 mmo/L 09/11/2014 12:50 PM EDT [facility] Carbon Dioxide 30 23 - 33 mmol/L 09/11/2014 12:50 PM EDT [facility] Calcium 10.0 8.5 - 10.4 mg/dL 09/11/2014 12:50 PM EDT [facility] Glomerular Filtration Rate,Est 97 >60 ml/min 09/11/2014 12:50 PM EDT [facility] Comment: For patients greater than 18 years of and and if the patient is , please multiply result by 1.210 09/11/2014 10:4 1 AM EDT 09/11/2014 10:41 AM EDT Narrative [facility] - 09/11/2014 12:00 AM EDT non fasting Patient's primary care provider is: ??Abdi Solo us Abdi Solo MD LABORATORY Final Result [facility] * LAB TEST (09/04/2014 12:00 AM EDT) ATTACHED DOCUMENT 09/04/2014 12:00 AM EDT [facility] ATTACHED DOCUMENT 09/04/2014 12:00 AM EDT [facility] 09/04/2014 09/04/2014 Narrative Transcriptions Abdi Solo MD - 05/25/2015 12:00 AM EDT Abdi Solo MD - 05/26/2015 12:00 AM EDT us Abdi Solo MD LABORATORY Final Result [facility] * OPHTHALMOLOGY CONSULTATION (08/30/2014 12:00 [...] Genital (Results below) 06/16/2014 10:45 AM EDT [facility] Comment: GENITAL TRACT CULTURE: BETA HEMOLYTIC STREP.,GROUP B ADDITIONAL INFO:: NO N. GONORRHOEAE, LISTERIA SPECIES OR YEAST ISOLATED QUANTITY:: 4+ (HEAVY) Performing site QB: [employer] [address] [place] [address] ?? Gabe Humphrey, Ph.D., 06/12/2014 5:29 PM EDT 06/12/2014 5:29 PM EDT Narrative [facility] - 06/16/2014 12:00 AM EDT Patient's primary care provider is: ??SoloAbdi vu has No Known Allergies. Source: VAGINA Diane Blanton MD LABORATORY Final R esult Performing Organization Address [facility] Co de Phone Number [facility] * G. VAGINALIS CULTURE R/0 (06/12/2014 5:29 PM EDT) Gardnerella Vaginalis (Results below) 06/16/2014 10:47 AM EDT [facility] Comment: G. VAGINALIS CULTURE RESULTS: NO GARDNERELLA VAGINALIS ISOLATED Performing site QB: [employer] [address] [place] [address] ?? Gabe Humphrey, Ph.D., 06/12/2014 5:29 PM EDT 06/12/2014 5:29 PM EDT Narrative [facility] - 06/16/2014 12:00 AM EDT Patient's primary care provider is: ??Abdi Solo Source: VAG Diane Blanton MD LABORATORY Final R esult Performing Organization Address City/State/[facility] Co de Phone Number [facility] * KNEE XRAY LEFT MIN [...] abnormal soft tissue calcifications. IMPRESSION: Normal examination. us Abdi Solo MD IMAGING - NO INBASKET RTG Mary Ann henao Result * FSH (06/12/2014 4:52 PM EDT) Follicle Stimulating Hormone 25.40 mIU/mL 06/13/2014 8:42 AM EDT [facility] Comment: Mid-follicular ?? Mid-cycle peak ??Mid-luteal ??Post-menopausal 3.85-8.78 ? 4.53-22.51 ? 1.79-5.12 ? 16.74-113.59 Performing site QB: [employer] [address] [place] [address] ?? Gabe Humphrey, Ph.D., 06/12/2014 4:52 PM EDT 06/12/2014 4:52 PM EDT Narrative [facility] - 06/13/2014 12:00 AM EDT Patient's primary care provider is: ??Abdi Solo us Diane Blanton MD LABORATORY Final R esult [facility] * PROLACTIN (06/12/2014 4:52 PM EDT) Prolactin 8.30 ng/mL 06/13/2014 8:38 AM EDT [facility] Comment: Pre-menopausal ? Post-menopausal 3.34-26.72 ? 2.74-19.64 Performing site QB: [employer] [address] ?? Gabe Humphrey, Ph.D., 06/12/2014 4:52 PM EDT 06/12/2014 4:52 PM EDT Narrative [facility] - 06/13/2014 12:00 AM EDT Patient's primary care provider is: ??Abdi Solo us Diane Blanton MD LABORATORY Final R esult [facility] * TSH W REFLEX (06/12/2014 4:52 PM EDT) [facility] Thyroid Stimulating Hormone 2.03 0.28 - 3.89 uIU/mL 06/13/2014 8:34 AM EDT [facility] Comment: Performing site QB: [employer] [address] ?? Gabe Humphrey, Ph.D., 06/12/2014 4:52 PM EDT 06/12/2014 4:52 PM EDT Narrative [facility] - 06/13/2014 12:00 AM EDT Patient's primary care provider is: ??Abdi Solo Diane Blanton MD LABORATORY Final R esult [facility] * HEMOGRAM (CBC) (06/12/2014 4:52 PM EDT) [facility] Leukocytes 9.1 3.8 - 10.8 K/uL 06/12/2014 5:43 PM EDT [facility] Erythrocytes 3.96 3.80 - 5.10 M/uL 06/12/2014 5:43 PM EDT [facility] Hemoglobin 12.3 11.7 - 15.5 g/dL 06/12/2014 5:43 PM EDT [facility] Hematocrit 35.4 35.0 - 45.0 % 06/12/2014 5:43 PM EDT [facility] Mean Corpuscular Volume 89.4 80.0 - 100.0 fl 06/12/2014 5:43 PM EDT [facility] Mean Corpuscular Hemoglobin 31.0 27.0 - 33.0 pg 06/12/2014 5:43 PM EDT [facility] Mean Corpuscular Hemoglobin Conc 34.6 32.0 - 36.0 % 06/12/2014 5:43 PM EDT [facility] Platelets 254 140 - 400 K/uL 06/12/2014 5:43 PM EDT [facility] RDW 11.4 11.0 - 15.0 % 06/12/2014 5:43 PM EDT [facility] 06/12/2014 4:52 PM EDT 06/12/2014 4:52 PM EDT Narrative [facility] - 06/12/2014 12:00 AM EDT Patient's primary care provider is: ??Abdi Solo Diane Blanton MD LABORATORY Final R esult Performing Organization Address [facility] Co de Phone Number [facility] * (ABNORMAL) RHEUMATOID FACTOR QUANT (06/12/2014 4:52 PM EDT) [facility] Rheumatoid Factor (RA) 136(H) <30 IU/mL 06/13/2014 5:05 PM EDT [facility] Comment: Performing site QB: RABT [place] [address] ?? Gabe Humphrey, Ph.D., 06/12/2014 4:52 PM EDT 06/12/2014 4:52 PM EDT Narrative [facility] - 06/13/2014 5:05 PM EDT Combined order with Dr. Solo Patient's primary care provider is: ??Abdi Solo us Abdi Solo MD LABORATORY Final Result Performing Organization Address [facility] de Phone Number [facility] * C REACTIVE PROTEIN CARDIO (06/12/2014 4:52 PM EDT) [facility] Crp Cardio 1.8 mg/L 06/13/2014 8:43 AM EDT [facility] Comment: CRP (mg/L) ?? Relative Cardiovascular Risk < 1.0 ? Low 1.0-3.0 ?Average 3.1-10.0 ? High > 10.0 ?Persistent elevations may represent non- cardiovascular inflammation. AHA/CDC guidelines: Circulation 2003;107:499-511. Performing site QB: RABT [place] [address] ?? Gabe Humphrey, Ph.D., 06/12/2014 4:52 PM EDT 06/12/2014 4:52 PM EDT Narrative [facility] - 06/13/2014 12:00 AM EDT Patient's primary care provider is: ??Abdi Solo us Abdi Solo MD LABORATORY Final Result [facility] * NICHO SCREEN W/REFL TITER IFA (06/12/2014 4:52 PM EDT) [facility] NICHO Screen Negative Negative 06/17/2014 10:09 AM EDT [facility] Anti-Nucleat AB Not indicated () 06/17/2014 10:09 AM EDT [facility] Comment: Test Performed by [employer], [address] [place] [address] Hermelindo Patterson M.D., Ph.D., Director of Laboratories , CLIA [id number] Performing site NI: [employer] ([employer]) [address] [place] [address] ?? CLIA [id number] 06/12/2014 4:52 PM EDT 06/12/2014 4:52 PM EDT Narrative [facility] - 06/17/2014 10:09 AM EDT Combined order with Dr. Solo Patient's primary care provider is: ??Abdi Solo us Abdi Solo MD LABORATORY Final Result [facility] * CYCLIC CITRULLINATED PEPTIDE ANTIBODY (IGG) (06/12/2014 4:52 PM EDT) Pathologist [facility] CCP (Cyclic Citrullinated Peptide) IgG < 16 () UNITS 06/14/2014 4:05 PM EDT [facility] Comment: Reference Range Negative: ?<20 Weak Positive: ? 20-39 Moderate Positive: ?? 40-59 Strong Positive: ? >59 Test performed at [facility] [address] [place], [place] ??[address] Director: JOVITA MCARTHUR MD Performing site QL: RAB[place], [place] ?? [phone] 06/12/2014 4:52 PM EDT 06/12/2014 4:52 PM EDT Narrative [facility] - 06/14/2014 4:05 PM EDT Combined order with Dr. Solo Patient's primary care provider is: ??Abdi Solo Abdi Solo MD LABORATORY Final Result [facility] * PAP TEST (06/12/2014 3:20 AM EDT) PAP Smear [id number] 06/20/2014 6:33 PM EDT [facility] Comment: GENERAL CATEGORY: OTHER (See [...] at http://www.asccp.org/ConsensusGuidelines/AbnormalCervicalScreeningTests/ tabid/5958/Default.aspx for more information. APHLP/APHLP Specimen(s)/ENERGY TECHNICIAN Information: THINPREP CERVICAL/ENDOCERVICAL, 20 cc of fluid Total # of Slides/Specimen: 1 ? RELATED LABORATORY RESULTS Ord Date: 06/12/2014 Test Name ? Collected ? Result ?Abnormal ?Range HPV high ?06/12/2014 ?Negative ?Negative risk The slide was processed by the Sm[employer] SolutionsPrep Imaging System, and was rescreened or reviewed by a leg man Screened by: ?? MARGARET GOULD, ? SIGNED OUT BY ELECTRONIC Warp Coiler ?SIGNATURE ?Signed Out by: MARGARET GOULD, ?Warp Coiler ?Date Reported: 06/20/2014 MAGDA LÓPEZ ?[id number] ?GYNECOLOGIC CYTOLOGY REPORT Printed: 06/20/2014 5:27 PM ?Page 1 of 1 06/12/2014 3:20 AM EDT 06/12/2014 3:20 AM EDT us Dinae Blanton MD PATHOLOGY Final R esult [facility] * HPV HIGH RISK (06/12/2014 3:20 AM EDT) Human Papillomavirus (HPV) DNA, High Risk Negative Negative 06/20/2014 5:28 PM EDT [facility] 06/12/2014 3:20 AM EDT 06/12/2014 3:20 AM EDT Diane Blanton MD LABORATORY Final R esult [facility] * SCREENING MAMMOGRAPHY DIGITAL (06/12/2014 [...] 216(H) <200 mg/dL 03/06/2014 4:48 PM EDT [facility] Triglyceride 88 <150 mg/dL 03/06/2014 4:48 PM EDT [facility] Cholesterol.in HDL 62 >40 mg/dL 03/06/2014 4:48 PM EDT [facility] Comment: NCEP GUIDELINES Desireable >60 mg/dL Borderline 40-59 mg/dL ?? Undesirable <40 mg/dL LDL 136(H) <130 mg/dL 03/06/2014 4:48 PM EDT [facility] Chol/HDL Ratio 3 0 - 5 CALC 03/06/2014 4:48 PM EDT [facility] 03/06/2014 2:28 PM EDT 03/06/2014 2:28 PM EDT Narrative [facility] - 03/06/2014 12:00 AM EDT Patient's primary care provider is: ??Abdi Solo us Abdi Solo MD LABORATORY Final Result [facility] * EKG (03/06/2014) ATTACHED DOCUMENT [...] 06/12/2014 Need for prophylactic vaccination with combined gzhozlkpaq-zuvqeak-dwhelwdyi (DTP) vaccine 06/12/2014 Pain in joint, multiple [...] system and sense organs 07/04/2024 Care Teams Ese Teacher Relationship Specialty Start Date End Date Unknown Pcp, Non [facility] PCP - General 10/13/22
--- OUTSIDE RECORDS SUMMARY | 2025-03-05 11:02 | XMS_ITS | Encounter Summary ---
Author Organization [facility] Address [address] [place] [address] Care Team Providers Care Ccie Name Role Phone Vandana Epps MD Primary Care Provider [phone] Unknown Pcp, Non [facility] Primary Care Provider Unava ilable Reason for Visit * Reason Comments E-prescribing Refill Request Encounter Details Date Type Department Care Team ([facility] st Contact Info) Description 06/24/2020 Refill [facility] Adult Medicine [address] [place] [address] Vandana Epps MD [facility] [address] [facility] [address] [place] [address] E-prescribing Refill Request Social History [...] Famotidine 20 MG Oral Tablet (PEPCID) Order: [id number] E-Prescribing Status: Receipt confirmed by pharmacy (02/28/2020 ??4:44 PM EDT) Order Providers Faxed/E-prescribed medication renewal request(s) for Matilde Jung 54 y.o. female received from pharmacy. Verified and Confirmed pharmacy for patient. Last CPE with this specialty: 10/23/2019 Last OV with this specialty: 10/23/2019 Next OV: Future Appointments Date Time Provider Department Phone 08/20/20 1:30 PM Eloy Pritchard MD [facility] Pulmonary [address] Pertinent lab results: [...] EDT Office Visit [facility]. Optometry [address] [place] [id number] Agus Jacinto, OD [address] [place] [address] *est pt exam, no cl, no dm, 1 year follow up, aodv, *not elig. until 12/23/24, MH, 12/21* tommie, interp needed, aoir sent te over sent email to [email or web address] documented as of this encounter Visit Diagnoses Not on filedocumented in this encounter Care Teams Ccie Relationship Specialty Start Date End Date Vandana Epps MD PCP - General Internal Medicine 07/28/17 10/12/22 Unknown Pcp, Non [facility] PCP - General 10/13/22 documented as of this encounter
--- OUTSIDE RECORDS SUMMARY | 2025-03-05 11:02 | XMS_ITS | Encounter Summary ---
Author Organization [facility] Address [address] [place] [address] Care Team Providers Care Mason Liner Name Role Phone Brad Solo MD Primary Care Provider [phone] Vandana Epps MD Primary Care Provider [phone] Unknown Pcp, Non Rmg Primary Care Provider Unava ilable Encounter Details Date Type Department Care Team (Late st Contact Info) Description 10/06/2016 Orders Only [facility] HOSPITAL TELEVISION RENTAL CLERK [address] [place] [phone] Cintia Gómez NP Social History Tobacco Use [...] - 10/11/2016 8:23 AM ESTQuick Note: To HEAT REGULATOR for review, problem list updated, normal letter sent. documented in this encounter Plan of Treatment Upcoming Encounters Date Type Department Care Team (Late st Contact Info) Description 07/08/2025 8:30 AM EDT Office Visit [facility]. Optometry [address] [place] [address] Agus Jacinto OD [address] [place] [address] *est pt exam, no cl, no dm, 1 year follow up, aodv, *not elig. until 12/23/24, , 12/21* tommie, interp needed, aoir sent te over sent email to [email or web address] documented as of this encounter Procedures * Due to [place] [employer] law, this organization might not be sharing negative HIV tests. Procedure Name Priority Date/Time Associated Diagnosis Comments THINPREP TIS PAP AND HPV MRNA E6/E7 REFLEX HPV 16,18/45 Routine 10/06/2016 4:27 PM EST Encounter for gynecological examination without abnormal finding documented in this encounter Results * Due to [facility] law, this organization might not be sharing negative HIV tests. * THINPREP TIS PAP AND HPV MRNA E6/E7 REFLEX HPV 16,18/45 (10/06/2016 4:27 PM EST) Clinical information none given [facility] Comment:{CLINICAL INFORMATIO N: {[id number]) Date last menstrual period 09/30/16 [facility] Comment:{LMP: {[id number]) Date of previous PAP smear NONE GIVEN [facility] Comment:{PREV. PAP: {[id number]) Date of previous biopsy NONE GIVEN [facility] Comment:{PREV. BX: {[id number]) Specimen source (Cvx/Vag) Cervix [facility] Comment:{SOURCE: {[id number]) Statement of Adequacy (Cvx/Vag) Satisfactory for evaluation. Endocervical/rosario sformation zone component absent. [facility] Comment:{STATEMENT OF ADEQUA CY: {[id number]) Cytology, Pap Smear Negative for intraepithelial lesion or malignancy. [facility] Comment:{INTERPRETATION/RESU LT: {[id number]) Cytology study comment (Cvx/Vag) This Pap test has been evaluated with computer assisted technology. [facility] Comment:{COMMENT: {[id number]) Pre School Teacher (Cvx/Vag) MXD, CT (ASCP) CT screening location: [place] [address] [employer] [facility] Comment:{PUBLIC RELATIONS: { [id number]) HPV MRNA E6/E7 Not Detected Not Detected [facility] Comment: {HPV mRNA E6/E7 {[id number]) This test was performed using the APTIMA HPV Assay ([employer] This assay detects E6/E7 viral messenger RNA (mRNA) from 14 high-risk HPV types (16,18,31,33,35,39,45,51,52,56,58,59,66,68). 10/06/2016 4:27 PM EST 10/07/2016 2:45 AM EST Narrative Resulting Agency Comment [id number] [facility] HEAT REGULATOR PATHOLOGY-INTERFACED Final R esult Performing Organization Address City/State/[facility] Co de Phone Number [facility] [address] [place] [address] documented in this encounter Visit Diagnoses Diagnosis Encounter for gynecological examination without abnormal finding Routine gynecological examination documented in this encounter Care Teams Mason Liner Relationship Specialty Start Date End Date Brad Solo MD PCP - General 12/30/14 07/27/17 Vandana Epps MD PCP - General Internal Medicine 07/28/17 10/12/22 Unknown Pcp, Non Rmg PCP - General 10/13/22 documented as of this encounter
--- OUTSIDE RECORDS SUMMARY | 2025-03-05 11:02 | XMS_ITS | Encounter Summary ---
Author Organization [facility] Address [address] [place] [address] Care Team Providers Care Research Development Manager Name Role Phone Brad Solo MD Primary Care Provider [phone] Vandana Epps MD Primary Care Provider [phone] Unknown Pcp, Non Rmg Primary Care Provider Unava ilable Encounter Details Date Type Department Care Team (Late st Contact Info) Description 06/14/2017 Orders Only [facility] [address] [place] [phone] Brad Solo MD [address] [address] Social History Tobacco Use Types Packs/Day Years [...] 8:30 AM EDT Office Visit [facility]. Optometry [address] [place] [phone] Agus Jacinto, OD [address] [place] [address] *est pt exam, no cl, no dm, 1 year follow up, aodv, *not elig. until 12/23/24, , 12/21* tommie, interp needed, aoir sent te over sent email to [email or web address] documented as of this encounter Procedures * Due to [place] [employer] law, this organization might not be sharing [...] in this encounter Results * Due to [place] [employer] law, this organization might not be sharing [...] GROUP Calcium 9.7 8.5 - 10.4 mg/dL [facility] Protein Total (Serum) 7.2 6.0 - 8.3 g/dL [facility] Albumin 4.3 3.5 - 5.2 g/dL [facility] Globulin 3 2 - 4 G/DL [facility] Bilirubin Total 0.22 0.00 - 1.20 mg/dL [facility] Alkaline phosphatase 48 33 - 130 U/L [facility] AST (SGOT) 15 <38 U/L [facility] ALT (SGPT) 12 <47 U/L [facility] Carbon dioxide 27 23 - 33 mmol/L [facility] GFR 92 >60 ml/min [facility] Comment:If the patient is Af rican Syrian, please multiply result by 1.210 06/14/2017 11:3 2 AM EDT 06/14/2017 11:32 AM EDT Narrative [facility] - 06/14/2017 1:46 PM EDT Patient's primary care provider is: ??N/A Testing performed at: [facility], [address] [place] [address], [address], Build Master: Vikas Leung M.D. Brad Solo MD LABORATORY Final Result [address] [address] DIRECTOR VIKAS LENUG M.D. * (ABNORMAL) CBC INCLUDES DIFFERENTIAL AND PLATELET COUNT (06/14/2017 11:32 AM EDT) WBC 10.6 3.8 - 10.8 K/uL [facility] Neutrophils # 8.2(H) 1.5 - 7.8 K/uL [facility] Immature Granulocytes # 0.02 0.00 - 0.07 K/uL [facility] Comment:Cells included in IM M GRANS # : Metamyelocytes, Myelocytes and Promyelocytes. Lymphocytes # 1.5 0.9 - 3.9 K/uL [facility] Monocytes # 0.7 0.2 - [...] AM EDT 06/14/2017 11:32 AM EDT Narrative [facility] - 06/14/2017 12:12 PM EDT Patient's primary care provider is: ??N/A Testing performed at: [facility], [address] [place] [address], [address], Build Master: Vikas Leung M.D. us Brad Solo MD LAB SAME DAY RESULT Final Resu lt [address] [address] DIRECTOR VIKAS LEUNG M.D. * ERYTHROCYTE SEDIMENTATION RATE (ESR), ADRIANA (06/14/2017 11:32 AM EDT) Sedimentation Rate [place] (ESR) 17 0 - 20 mm/hr [facility] 06/14/2017 11:3 2 AM EDT 06/14/2017 11:32 AM EDT Narrative [facility] - 06/14/2017 1:54 PM EDT Patient's primary care provider is: ??N/A Testing performed at: [facility], [address] [place] [address], [address], Build Master: Vikas Leung M.D. Brad Solo MD LAB SAME DAY RESULT Final Resu lt Performing Organization Address [facility] Co de Phone Number [address] [address] DIRECTOR VIKAS LEUNG M.D. * NICHO SCREEN IFA W/REFLEX TO TITER/PATTERN [...] for interpretation of all antibodies in the [place], prevalence, and association with diseases at http://education.goviral/ faq/[id number] 06/14/2017 11:2 9 AM EDT 06/14/2017 8:03 PM EDT Narrative Resulting Agency Comment [id number] Brad Solo MD LABORATORY Final Result [facility] [address] [place] [address] * CYCLIC CITRULLINATEDPEPTIDE CCP AB IGG (06/14/2017 11:29 AM EDT) CCP Ab, IgG <16 UNITS [facility] Comment: Reference Range Negative: ?<20 Weak Positive: ? 20-39 Moderate Positive: ?? 40-59 Strong Positive: ? >59 06/14/2017 11:2 9 AM EDT 06/14/2017 8:03 PM EDT Narrative Resulting Agency Comment [id number] Brad Solo MD LABORATORY Final Result Performing Organization Address [facility] Co de Phone Number [facility] [address] [place] [address] * (ABNORMAL) RHEUMATOID FACTOR, SERUM (06/14/2017 11:29 AM EDT) Rheumatoid Factor (Quant) 26(H) <14 IU/mL [facility] 06/14/2017 11:2 9 AM EDT 06/14/2017 8:03 PM EDT Narrative Resulting Agency Comment [id number] Brad Solo MD LABORATORY Final Result Performing Organization Address [facility] de Phone Number [facility] [address] [place] [address] * C-REACTIVE PROTEIN (CRP) - INFLAMMATION (06/14/2017 11:29 AM EDT) C reactive protein <0.10 <0.80 mg/dL [facility] Comment: Please be advised that patients taking Carboxypenicillins may exhibit falsely decreased C-Reactive Protein levels due to an analytical interference in this assay. 06/14/2017 11:2 9 AM EDT 06/14/2017 8:03 PM EDT Narrative Resulting Agency Comment [id number] Brad Solo MD LABORATORY Final Result Performing Organization Address [facility] Co de Phone Number [facility] [address] [place] [address] documented in this encounter Visit Diagnoses Diagnosis Multiple joint pain Pain in joint, multiple sites Chronic cough Cough Gastroesophageal reflux disease, esophagitis presence not specified documented in this encounter Care Teams Research Development Manager Relationship Specialty Start Date End Date Brad Solo MD PCP - General 12/30/14 07/27/17 Vandana Epps MD PCP - General Internal Medicine 07/28/17 10/12/22 Unknown Pcp, Non Rmg PCP - General 10/13/22 documented as of this encounter
--- OUTSIDE RECORDS SUMMARY | 2025-03-05 11:02 | XMS_ITS | Encounter Summary ---
Author Organization [facility] Address [address] [place] [address] Care Team Providers Care Websphere Process Server Developer Name Role Phone Vandana Epps MD Primary Care Provider [phone] Unknown Pcp, Non Rmg Primary Care Provider Unava ilable Reason for Visit * Reason Comments E-prescribing Refill Request Encounter Details Date Type Department Care Team ([facility] st Contact Info) Description 09/03/2020 Refill [facility] Adult Medicine [address] [place] [phone] Vandana Epps MD [facility] [address] [facility] [address] [place] [address] E-prescribing Refill Request Social History [...] Propionate 50 MCG/ACT Nasal Suspension (FLONASE) Order: [id number] . Faxed/E-prescribed medication renewal request(s) for Matilde Jung 54 y.o. female received from pharmacy. Verified and Confirmed pharmacy for patient. Last CPE with this specialty: 10/23/2019 Last OV with this specialty: 10/23/2019 Next OV: Future Appointments Date Time Provider Department Phone 09/10/20 1:15 PM CARMEL Gutierrez [facility] Pulmonary [address] 02/11/21 1:20 PM Alexandra Cancino OD [facility] Visual Services [phone] Pertinent lab results: No labs suggested for [...] Office Visit [facility]. Optometry [address] [place] [address] Agus Jacinto, OD [address] [place] [address] *est pt exam, no cl, no dm, 1 year follow up, aodv, *not elig. until 12/23/24, MH, 12/21* tommie, interp needed, aoir sent te over sent email to [email or web address] documented as of this encounter Visit Diagnoses Diagnosis Postnasal drip Chronic cough Cough documented in this encounter Care Teams Websphere Process Server Developer Relationship Specialty Start Date End Date Vandana Epps MD PCP - General Internal Medicine 07/28/17 10/12/22 Unknown Pcp, Non Rmg PCP - General 10/13/22 documented as of this encounter
--- OUTSIDE RECORDS SUMMARY | 2025-03-05 11:03 | XMS_ITS | Encounter Summary ---
Author Organization [facility] Address [address] [place] [address] Care Team Providers Care Scruff Worker Name Role Phone Vandana Epps MD Primary Care Provider Unknown Pcp, Non Rmg Primary Care Provider Unava ilable Encounter Details Date Type Department Care Team (Late st Contact Info) Description 10/18/[address] [facility] Adult Medicine [address] [place] [phone] Vandana Epps MD [facility] [address] [facility] [address] [place] [address] Social History Tobacco Use Types [...] Description 07/08/2025 8:30 AM EDT Office Visit [facility] Optometry [address] [place] [phone] Agus Jacinto, OD [address] [place] [address] *est pt exam, no cl, no dm, 1 year follow up, aodv, *not elig. until 12/23/24, , 12/21* tommie, interp needed, aoir sent te over sent email to [email or web address] documented as of this encounter Procedures * Due to [employer] law, this organization might not be sharing [...] in this encounter Results * Due to [place] state law, this organization might not be [...] is not present Confirmed by Batsheva Tamez ([id number]), newspaper editor RIKY LEWIS ([id number]) on 10/24/2018 8:02:37 AM MUSE EKG SYSTEM 10/18/2018 10:3 9 AM EST 10/24/2018 8:02 AM EST us Vandana Epps MD CARDIOVASCULAR-WITH INBSKT RTG Final Result MUSE EKG SYSTEM * (ABNORMAL) LIPID PANEL WITH REFLEX TO DIRECT LDL (10/18/2018 10:17 AM EST) Cholesterol 167 <200 mg/dL [facility] Triglyceride 112 <150 mg/dL [facility] HDL Cholesterol 40(L) >40 mg/dL [facility] Comment: NCEP GUIDELINES Desireable >60 mg/dL Borderline 40-59 mg/dL ?? Undesirable <40 mg/dL LDL Cholesterol 104 <130 mg/dL [facility] CHOL/HDL Ratio 4 0 - 5 CALC [facility] 10/18/2018 10:1 7 AM EST 10/18/2018 10:17 AM EST Narrative [facility] - 10/18/2018 1:38 PM EST non fasting Patient's primary care provider is: ??N/A Testing performed at: [facility], [address] [place] [address], [address], Dude Wrangler: Seth Gutierrez MD us Vandana Epps MD LABORATORY Final Result Performing Organization Address [facility] Co de Phone Number [address] [address] DIRECTOR Seth Gutierrez MD * THYROID STIMULATING HORMONE (TSH) WITH FREE T4 REFLEX, SERUM (10/18/2018 10:17 AM EST) TSH (Thyrotropin) 2.16 0.40 - 4.50 uIU/ml [facility] 10/18/2018 10:1 7 AM EST 10/18/2018 10:17 AM EST Narrative [facility] - 10/18/2018 1:38 PM EST non fasting Patient's primary care provider is: ??N/A Testing performed at: [facility], [address] [place] [address], [address], Dude Wrangler: Seth Gutierrez MD us Vandana Epps MD LABORATORY Final Result Performing Organization Address [facility]/ZIP Co de Phone Number [address] [address] DIRECTOR Seth Gutierrez MD * COMPREHENSIVE METABOLIC [...] GROUP Comment:If the patient is Af rican Syrian, please multiply result by 1.210 10/18/2018 10:1 7 AM EST 10/18/2018 10:17 AM EST Narrative [facility] - 10/18/2018 1:38 PM EST non fasting Patient's primary care provider is: ??N/A Testing performed at: [facility], [address] [place] [address], [address], Dude Wrangler: Seth Gutierrez MD Vandana Epps MD LABORATORY Final Result Performing Organization Address [facility] Co de Phone Number [facility] [address] [place] [address] DIRECTOR Seth Gutierrez MD * CBC INCLUDES [...] care provider is: ??N/A Testing performed at: [facility], [address] [place] [address], [address], Dude Wrangler: Seth Gutierrez MD Vandana Epps MD LAB SAME DAY RESULT Final Resu lt [address] [address] DIRECTOR Seth Gutierrez MD documented in this encounter Visit Diagnoses Diagnosis Weight loss Loss of weight Screening for hypercholesterolemia Screening for lipoid disorders Chest pain, unspecified type documented in this encounter Care Teams Scruff Worker Relationship Specialty Start Date End Date Vandana Epps MD PCP - General Internal Medicine 07/28/17 10/12/22 Unknown Pcp, Non Rmg PCP - General 10/13/22 documented as of this encounter
--- OUTSIDE RECORDS SUMMARY | 2025-03-05 11:03 | XMS_ITS | Encounter Summary ---
Author Organization [facility] Address [address] [place] [address] Care Team Providers Care Change Coordinator Name Role Phone Vandana Epps MD Primary Care Provider [phone] Unknown Pcp, Non Rmg Primary Care Provider Unava ilable Reason for Visit * Reason Comments E-prescribing Refill Request Encounter Details Date Type Department Care Team ([facility] st Contact Info) Description 08/22/2019 Refill [facility] Adult Medicine [address] [place] [phone] Vandana Epps MD [facility] [address] [facility] [address] [place] [address] E-prescribing Refill Request Social History [...] Phone 10/23/2019 1:00 PM Vandana Epps MD [facility] Adult Medicine [phone] 10/23/2019 2:00 PM Jory Womack MD [facility] AUTOMOBILE LOCATOR [phone] Pertinent lab results: No labs suggested for [...] Office Visit [facility]. Optometry [address] [place] [address] Agus Jacinto, OD [address] [place] [address] *est pt exam, no cl, no dm, 1 year follow up, aodv, *not elig. until 12/23/24, , 12/21* tommie, interp needed, aoir sent te over sent email to [email or web address] documented as of this encounter Visit Diagnoses Diagnosis Postnasal drip Chronic cough Cough documented in this encounter Care Teams Change Coordinator Relationship Specialty Start Date End Date Vandana Epps MD PCP - General Internal Medicine 07/28/17 10/12/22 Unknown Pcp, Non Rmg PCP - General 10/13/22 documented as of this encounter
--- OUTSIDE RECORDS SUMMARY | 2025-03-05 11:03 | XMS_ITS | Encounter Summary ---
Author Organization [facility] Address [address] [place] [address] Care Team Providers Care Manager Branch Name Role Phone Vandana Epps MD Primary Care Provider [phone] Unknown Pcp, Non Rmg Primary Care Provider Unava ilable Reason for Visit * Reason Comments Shoulder Pain L shoulder pain x 4 months and into elbow Encounter Details Date Type Department Care Team (Late st Contact Info) Description 12/13/2018 Orders Only [facility] Orthopedic Surgery [address] [place] [address] Car Rodriguez N, DO [address] [place] [address] Social History Tobacco Use Types Packs/Day Years [...] Office Visit [facility]. Optometry [address] [place] [phone] Agus Jacinto, OD [address] [place] [address] *est pt exam, no cl, no dm, 1 year follow up, aodv, *not elig. until 12/23/24, MH, 12/21* tommie, interp needed, aoir sent te over sent email to [email or web address] documented as of this encounter Results * Due to [place] state law, this organization might not be [...] chronicity documented in this encounter Care Teams Manager Branch Relationship Specialty Start Date End Date Vandana Epps MD PCP - General Internal Medicine 07/28/17 10/12/22 Unknown Pcp, Non Rmg PCP - General 10/13/22 documented as of this encounter
--- OUTSIDE RECORDS SUMMARY | 2025-03-05 11:03 | XMS_ITS | Encounter Summary ---
Author Organization [facility] Address [address] [place] [address] Care Team Providers Care Sale Professional Digital Marketing Name Role Phone Brad Solo MD Primary Care Provider [phone] Vandana Epps MD Primary Care Provider [phone] Unknown Pcp, Non Rmg Primary Care Provider Unava ilable Encounter Details Date Type Department Care Team (Late st Contact Info) Description 08/23/2016 Orders Only [facility] SALES AND MARKETING SPECIALIST [address] [place] [phone] Jory Womack MD [address] [place] [phone] Social History Tobacco Use Types Packs/Day Years [...] Description 07/08/2025 8:30 AM EDT Office Visit [facility]. Optometry [address] [place] [phone] Agus Jacinto, AYAAN [address] [place] [address] *est pt exam, no cl, no dm, 1 year follow up, aodv, *not elig. until 12/23/24, MH, 12/21* tommie, interp needed, aoir sent te over sent email to [email or web address] documented as of this encounter Visit Diagnoses Not on filedocumented in this encounter Care Teams Sale Professional Digital Marketing Relationship Specialty Start Date End Date Brad Solo MD PCP - General 12/30/14 07/27/17 Vandana Epps MD PCP - General Internal Medicine 07/28/17 10/12/22 Unknown Pcp, Non Rmg PCP - General 10/13/22 documented as of this encounter
--- OUTSIDE RECORDS SUMMARY | 2025-03-05 11:03 | XMS_ITS | Encounter Summary ---
Author Organization [facility] Address [address] [place] [address] Care Team Providers Care High School Hvac R Instructor Name Role Phone Brad Solo MD Primary Care Provider [phone] Vandana Epps MD Primary Care Provider [phone] Unknown Pcp, Non Rmg Primary Care Provider Unava ilable Encounter Details Date Type Department Care Team (Late st Contact Info) Description 10/28/2015 Orders Only [facility] [address] [place] [phone] John Oviedo MD [facility] Allergy, Asthma & Immunology [address] [place] [phone] Social History Tobacco Use Types Packs/Day Years [...] Description 07/08/2025 8:30 AM EDT Office Visit [facility] 5 [place] [phone] Agus Jacinto, OD 5 [place] [address] *est pt exam, no cl, no dm, 1 year follow up, aodv, *not elig. until 12/23/24, , 12/21* tommie, interp needed, aoir sent te over sent email to [email or web address] documented as of this encounter Procedures * Due to [facility] law, this organization might not be sharing negative HIV tests. Procedure Name Priority Date/Time Associated Diagnosis Comments HELICOBACTER PYLORI UREA BREATH TEST (UBIT-(R)) Routine 10/28/2015 8:57 AM EST Gastroesophageal reflux disease without esophagitis documented in this encounter Results * Due to [place] [employer] law, this organization might not be sharing negative HIV tests. * HELICOBACTER PYLORI UREA BREATH TEST (UBIT-(R)) (10/28/2015 8:57 AM EST) Urea Breath Test, Infra-Red (Ubit) NOT DETECTED NOT DETECTED [facility] Comment: {HELICOBACTER PYLORI, UREA BREATH TEST {[id number]) Antimicrobials, proton pump inhibitors, and bismuth preparations are known to suppress H. pylori, and ingestion of these prior to H. pylori diagnostic testing may lead to false negative results. If clinically indicated, the test may be repeated on a new specimen obtained two weeks after discontinuing treatment. 10/28/2015 8:57 AM EST 10/28/2015 2:27 PM EST Narrative Resulting Agency Comment [id number] us John Oviedo MD LABORATORY Final Resu lt [facility] [address] [place] [address] documented in this encounter Visit Diagnoses Diagnosis Gastroesophageal reflux disease without esophagitis Esophageal reflux documented in this encounter Care Teams High School Hvac R Instructor Relationship Specialty Start Date End Date Brad Solo MD PCP - General 12/30/14 07/27/17 Vandana Epps MD PCP - General Internal Medicine 07/28/17 10/12/22 Unknown Pcp, Non Rmg PCP - General 10/13/22 documented as of this encounter
--- OUTSIDE RECORDS SUMMARY | 2025-03-05 11:03 | XMS_ITS | Encounter Summary ---
Author Organization [facility] Address [address] [place] [address] Care Team Providers Care Ballistics Professor Name Role Phone Brad Solo MD Primary Care Provider [phone] Vandana Epps MD Primary Care Provider [phone] Unknown Pcp, Non Rmg Primary Care Provider Unava ilable Reason for Referral * CONSULT AND TREATMENT (Routine) - Closed Specialty Diagnoses / Procedures Referred By Contac t Referred To Contact Mammography Diagnoses screening Procedures REQUEST FOR MAMMOGRAPHY BILATERAL(DX: SCREENING FOR BREAST CANCER Z12.31)(1 YR FROM LAST) NON-FC Brad Solo MD Phone: tel: fax: [facility] Referral ID Status Reason Start Date Expiration Date V isits Requested Visits Authorized [id number] Closed Continuity of Care 08/19/2017 1 1 Encounter Details Date Type Department Care Team (Late st Contact Info) Description 08/24/2016 Orders Only [facility] Adult Medicine [address] [place] [phone] Brad Solo MD [address] [address] Social History Tobacco Use Types Packs/Day Years [...] EDT Office Visit [facility]. Optometry [address] [place] [address] Agus Jacinto, OD [address] [place] [address] *est pt exam, no cl, no dm, [...] on filedocumented in this encounter Care Teams Ballistics Professor Relationship Specialty Start Date End Date Brad Solo MD PCP - General 12/30/14 07/27/17 Vandana Epps MD PCP - General Internal Medicine 07/28/17 10/12/22 Unknown Pcp, Non Rmg PCP - General 10/13/22 documented as of this encounter
--- OUTSIDE RECORDS SUMMARY | 2025-03-05 11:03 | XMS_ITS | Encounter Summary ---
Author Organization [facility] Address [address] [place] [address] Care Team Providers Care Certified Orthotist Practice Manager Name Role Phone Brad Solo MD Primary Care Provider [phone] Vandana Epps MD Primary Care Provider [phone] Unknown Pcp, Non Rmg Primary Care Provider Unava ilable Encounter Details Date Type Department Care Team (Late st Contact Info) Description 08/19/2016 Orders Only [facility] Adult Medicine [address] [place] [phone] Brad Solo MD [address] [address] Social History Tobacco Use Types Packs/Day Years [...] [facility]. Optometry 5 [place] [phone] Agus Jacinto, OD [address] [place] [address] *est pt exam, no cl, no dm, 1 year follow up, aodv, *not elig. until 12/23/24, , 12/21* tommie, interp needed, aoir sent te over sent email to [email or web address] documented as of this encounter Procedures * Due to [facility] law, this organization might not be [...] in this encounter Results * Due to [place] state law, this organization might not be sharing negative HIV tests. * THYROID STIMULATING HORMONE (TSH) WITH FREE T4 REFLEX, SERUM (08/19/2016 2:08 PM EDT) TSH (Thyrotropin) 2.69 0.40 - 4.50 uIU/ml [facility] 08/19/2016 2:08 PM EDT 08/19/2016 2:08 PM EDT Narrative [facility] - 08/19/2016 5:09 PM EDT not fasting Patient's primary care provider is: ??N/A Testing performed at: [facility], [address] [place] [address], [address], Cdl Team Truck Driver: Vikas Leung M.D. us Brad Solo MD LABORATORY Final Result [address] [address] DIRECTOR VIKAS LEUNG M.D. * VITAMIN D, 25-HYDROXY, TOTAL, IMMUNOASSAY (08/19/2016 2:08 PM EDT) VIT D, 25-OH, TOTAL 52 >29 ng/mL [facility] Comment: Vitamin D Status ??25-OH Vitamin D: Deficiency: ? <20 ng/mL Insufficiency: ? 20-29 ng/mL Optimal: ?> or = 30 ng/mL 08/19/2016 2:08 PM EDT 08/19/2016 2:08 PM EDT Narrative [facility] - 08/19/2016 5:09 PM EDT not fasting Patient's primary care provider is: ??N/A Testing performed at: [facility], [address] [place] [address], [address], Cdl Team Truck Driver: Vikas Leung M.D. Brad Solo MD LABORATORY Final Result [address] [address] DIRECTOR VIKAS LEUNG M.D. * (ABNORMAL) LIPID PANEL WITH REFLEX TO DIRECT LDL (08/19/2016 2:08 PM EDT) Cholesterol 215(H) <200 mg/dL [facility] Triglyceride 243(H) <150 mg/dL [facility] HDL Cholesterol 36(L) >40 mg/dL [facility] Comment: NCEP GUIDELINES Desireable >60 mg/dL Borderline 40-59 mg/dL ?? Undesirable <40 mg/dL LDL Cholesterol 130(H) <130 mg/dL [facility] CHOL/HDL Ratio 6(H) 0 - 5 CALC [facility] 08/19/2016 2:08 PM EDT 08/19/2016 2:08 PM EDT Narrative [facility] - 08/19/2016 5:09 PM EDT not fasting Patient's primary care provider is: ??N/A Testing performed at: [facility], [address] [place] [address], [address], Cdl Team Truck Driver: Vikas Leung M.D. us Brad Solo MD LABORATORY Final Result [address] [address] DIRECTOR VIKAS LEUNG M.D. * (ABNORMAL) COMPREHENSIVE [...] GROUP Comment:If the patient is Af rican [place], please multiply result by 1.210 08/19/2016 2:08 PM EDT 08/19/2016 2:08 PM EDT Narrative [facility] - 08/19/2016 5:09 PM EDT not fasting Patient's primary care provider is: ??N/A Testing performed at: [facility], [address] [place] [address], [address], Cdl Team Truck Driver: Vikas Leung M.D. Brad Solo MD LABORATORY Final Result [address] [address] DIRECTOR VIKAS LEUNG M.D. * CBC INCLUDES [...] GROUP MCHC 33.1 32.0 - 36.0 g/dL [facility] RDW 12.4 11.0 - 15.0 % [facility] PLT 262 140 - 400 K/uL [facility] 08/19/2016 2:08 PM EDT 08/19/2016 2:08 PM EDT Narrative [facility] - 08/19/2016 2:48 PM EDT not fasting Patient's primary care provider is: ??N/A Testing performed at: [facility], [address] [place] [address], [address], Cdl Team Truck Driver: Vikas Leung M.D. us Brad Solo MD LAB SAME DAY RESULT Final Resu lt [address] [address] DIRECTOR VIKAS LEUNG M.D. documented in this encounter Visit Diagnoses Diagnosis Gastroesophageal reflux disease without esophagitis Esophageal reflux Screening cholesterol level Screening for lipoid disorders Vitamin D deficiency Anxiety Anxiety state, unspecified documented in this encounter Care Teams Certified Orthotist Practice Manager Relationship Specialty Start Date End Date Brad Solo MD PCP - General 12/30/14 07/27/17 Vandana Epps MD PCP - General Internal Medicine 07/28/17 10/12/22 Unknown Pcp, Non Rmg PCP - General 10/13/22 documented as of this encounter
== END 2025-03-05 10:24 | disposition home or self-care (01) ==
PROVIDERS: PCP Internal Medicine; Visit Provider Physical Medicine & Rehabilitation
DX: M79.605 Pain in left leg (principal); M54.42 Lumbago with sciatica, left side; G89.29 Other chronic pain
CPT/HCPCS: 99203

== ENCOUNTER 2025-03-05 09:41 | Outpatient (REF) | payer MEDICARE, MEDICAID, SELFPAY ==
--- NOTE | ~2025-03-05 | XR_ITS ---
CLINICAL HISTORY: M54.9 - Dorsalgia, unspecified 3 views lumbar spine Comparison: None Findings: Partial obscuration of the lumbosacral junction with otherwise normal heights of the 5 lumbar vertebrae. No significant listhesis. L4 and L5 pars are partly obscured without definite lysis. Degenerative changes include multifocal facet arthropathy; most pronounced in the lower lumbar spine. Sacrum, sacroiliac joints, and hips are obscured. Mild atelectasis in the [id number]. Moderate to severe stool burden present. Vascular calcifications noted. IMPRESSION: Degenerative changes include facet arthropathy by radiographs. This document has been electronically signed by: Dariel Cottrell MD on 03/05/2025 23:48:40
--- NOTE | ~2025-03-05 | XR_ITS ---
CLINICAL HISTORY: M25.559 - Pain in unspecified hip 5 view, pelvis and bilateral hips Comparison: None Findings: Mild-moderate osteoarthritis of the both hips, left worse than right. Ligament calcifications noted. Likely calcific tendinitis adjacent to each greater trochanter. Sacrum and SI joints are mostly obscured. Severe stool burden in the grjst-za-[id number]. Phleboliths are noted IMPRESSION: Mild-moderate osteoarthritis of the both hips. This document has been electronically signed by: Dariel Cottrell MD on 03/05/2025 23:47:11
--- OUTSIDE RECORDS SUMMARY | 2025-03-05 11:44 | XMS_ITS | Encounter Summary ---
Author Organization [facility] Address [address] [place] [address] Care Team Providers Care Talent Recruiter Name Role Phone Vandana Epps MD Primary Care Provider [phone] Unknown Pcp, Non Rmg Primary Care Provider Unava ilable Reason for Referral * CONSULT AND TREATMENT (Routine) - Auth Not Needed Specialty Diagnoses / Procedures Referred By Contac t Referred To Contact Mammography Diagnoses annual screening Procedures REQUEST FOR MAMMOGRAPHY BILATERAL(DX: SCREENING FOR BREAST CANCER Z12.31)(1 YR FROM LAST) NON-FC Vandana Epps MD Phone: tel: fax: [facility] Referral ID Status Reason Start Date Expiration Date Visits Requested Visits Authorized [id number] Auth Not Needed Continuity of Care 09/15/2017 1 1 Encounter Details Date Type Department Care Team (Late st Contact Info) Description 09/15/2017 Orders Only [facility] Adult Medicine [address] [place] [phone] Vandana Epps MD [facility] [address] [facility] [address] [place] [address] Social History Tobacco Use Types [...] EDT Office Visit [facility]. Optometry [address] [place] [phone] Agus Jacinto, OD [address] [place] [address] *est pt exam, no cl, no dm, 1 year follow up, aodv, *not elig. until 12/23/24, , 12/21* tommie, interp needed, aoir sent te over sent email to [email or web address] Scheduled Orders Name Type Priority Associated Diagnoses Orde r Schedule REQUEST FOR MAMMOGRAPHY BILATERAL(DX: SCREENING FOR BREAST CANCER Z12.31)(1 YR FROM LAST) NON-FC Imaging Routine Ordered: 1 documented as of this encounter Visit Diagnoses Not on filedocumented in this encounter Care Teams Talent Recruiter Relationship Specialty Start Date End Date Vandana Epps MD PCP - General Internal Medicine 07/28/17 10/12/22 Unknown Pcp, Non Rmg PCP - General 10/13/22 documented as of this encounter
--- OUTSIDE RECORDS SUMMARY | 2025-03-05 11:44 | XMS_ITS | Encounter Summary ---
Author Organization [facility] Address [address] [place] [address] Care Team Providers Care Systems Administrator Name Role Phone Vandana Epps MD Primary Care Provider [phone] Unknown Pcp, Non Rmg Primary Care Provider Unava ilable Encounter Details Date Type Department Care Team (Late st Contact Info) Description 10/12/2017 Orders Only [facility] Adult Medicine [address] [place] [phone] Vandana Epps MD [facility] 169 [facility] [address] [place] [address] Social History Tobacco Use Types [...] EDT Office Visit [facility]. Optometry [address] [place] [phone] JacintoAgus mclaughlin, OD 5 [facility] [place] [address] *est pt exam, no cl, no dm, 1 year follow up, aodv, *not elig. until 12/23/24, , 12/21* tommie, interp needed, aoir sent te over sent email to [email or web address] documented as of this encounter Procedures * Due to [place] [employer] law, this organization might not be sharing [...] in this encounter Results * Due to [place] [employer] law, this organization might not be sharing [...] PM EST 10/12/2017 1:09 PM EST Narrative [facility] - 10/12/2017 2:49 PM EST Patient is not fasting Patient's primary care provider is: ??N/A Testing performed at: [facility], [address] [place] [address], [address], Slip Injector And Applicator: Vikas Leung M.D. Vandana Epps MD LABORATORY Final Result [address] [address] DIRECTOR VIKAS LEUNG M.D. * CBC INCLUDES [...] GROUP PLT 265 140 - 400 K/uL [facility] 10/12/2017 1:09 PM EST 10/12/2017 1:09 PM EST Narrative [facility] - 10/12/2017 2:11 PM EST Patient is not fasting Patient's primary care provider is: ??N/A Testing performed at: [facility], [address] [place] [address], [address], Slip Injector And Applicator: Vikas Leung M.D. Vandana Epps MD LAB SAME DAY RESULT Final Resu lt [address] [address] DIRECTOR VIKAS LEUNG M.D. * COMPREHENSIVE METABOLIC PANEL WITH GFR (10/12/2017 1:09 PM EST) Glucose 88 65 - 99 mg/dl [facility] Urea Nitrogen Blood (BUN) 13 7 - 25 mg/dL [facility] Creatinine 0.88 0.50 - 1.16 [...] [facility] GFR 71 >60 ml/min [facility] Comment:If the patient is Af rican Filipino, please multiply result by 1.210 10/12/2017 1:09 PM EST 10/12/2017 1:09 PM EST Narrative [facility] - 10/12/2017 2:49 PM EST Patient is not fasting Patient's primary care provider is: ??N/A Testing performed at: [facility], [address] [place] [address], [address], Slip Injector And Applicator: Vikas Leung M.D. Vandana Epps MD LABORATORY Final Result Performing Organization Address [facility] Co de Phone Number [address] [address] DIRECTOR VIKAS LEUNG M.D. * HEPATITIS B SURFACE ANTIGEN (10/12/2017 1:07 PM EST) Hepatitis B virus surface Ag NON-REACTI VE NON-REACT ALEXIS [facility] 10/12/2017 1:07 PM EST 10/12/2017 7:10 PM EST Narrative Resulting Agency Comment [id number] us Vandana Epps MD LABORATORY Final Result [facility] [address] [place] [address] * SYPHILIS (FTA) ANTIBODY CASCADING REFLEX TO [...] 7:10 PM EST Narrative Resulting Agency Comment [id number] us Vandana Epps MD LABORATORY Final Result Performing Organization Address City/[facility] Co de Phone Number [facility] [address] [place] [address] * HEPATITIS C AB WITH REFLEX TO RNA PCR, SERUM (10/12/2017 1:07 PM EST) Hepatitis C virus Ab NON-REACTI VE NON-REACT ALEXIS [facility] Hepatitis C virus Ab Signal/Cutoff 0.02 <1.00 [facility] 10/12/2017 1:07 PM EST 10/12/2017 7:10 PM EST Narrative Resulting Agency Comment [id number] us Vandana Epps MD LABORATORY Final Result Performing Organization Address City/[facility] Co de Phone Number [facility] [address] [place] [address] documented in this encounter Visit Diagnoses Diagnosis Screen for STD (sexually transmitted disease) Screening examination for venereal disease Back pain, unspecified back location, unspecified back pain laterality, unspecified chronicity Abdominal pain, unspecified abdominal location Screening for hyperlipidemia Screening for lipoid disorders documented in this encounter Care Teams Systems Administrator Relationship Specialty Start Date End Date Vandana Epps MD PCP - General Internal Medicine 07/28/17 10/12/22 Unknown Pcp, Non Rmg PCP - General 10/13/22 documented as of this encounter
--- OUTSIDE RECORDS SUMMARY | 2025-03-05 11:44 | XMS_ITS | Encounter Summary ---
Author Organization [facility] Address [address] [place] [address] Care Team Providers Care Sld Inclusion Teacher Name Role Phone Brad Solo MD Primary Care Provider [phone] Vandana Epps MD Primary Care Provider [phone] Unknown Pcp, Non Rmg Primary Care Provider Unava ilable Encounter Details Date Type Department Care Team (Late st Contact Info) Description 06/26/2015 Orders Only [facility] SHANK STITCHER [address] [place] [phone] Jroy Womack MD [address] [place] [phone] Social History Tobacco Use Types Packs/Day Years [...] Office Visit [facility]. Optometry [address] [place] [phone] Agus Jacinto, AYAAN [address] [place] [address] *est pt exam, no cl, no dm, 1 year follow up, aodv, *not elig. until 12/23/24, , 12/21* tommie, interp needed, aoir sent te over sent email to [email or web address] documented as of this encounter Procedures * Due to [facility] law, this organization might not be sharing negative HIV tests. Procedure Name Priority Date/Time Associated Diagnosis Comments CULTURE, URINE, ROUTINE Routine 06/26/2015 5:24 PM EDT Dysuria URINALYSIS, COMPLETE INCLUDES DIPSTICK AND MICROSCOPIC Routine 06/26/2015 5:24 PM EDT Dysuria BV/VAGINITIS PANELDNA PROBE(AFFIRM) Routine 06/26/2015 5:23 PM EDT Vaginal discharge documented in this encounter Results * Due to [place] [employer] law, this organization might not be sharing negative HIV tests. * (ABNORMAL) CULTURE, URINE, ROUTINE (06/26/2015 5:24 PM EDT) [place] count (Urine) >50,000 CFU/ml [facility] Bacteria culture (Urine) Mixed Culture,Repeat if Clinically Indicated(A) No Growth [facility] 06/26/2015 5:24 PM EDT 06/26/2015 5:24 PM EDT Narrative [facility] - 06/28/2015 8:11 AM EDT Patient's primary care provider is: ??N/A Testing performed at: [facility], [address] [place] [address], [address], Rod Filler: Vikas Leung M.D. us Jory Womack MD LABORATORY Final R esult [address] [address] DIRECTOR VIKAS LEUNG M.D. * URINALYSIS, COMPLETE [...] PM EDT 06/26/2015 5:24 PM EDT Narrative [facility] - 06/26/2015 7:12 PM EDT Patient's primary care provider is: ??N/A Testing performed at: [facility], [address] [place] [address], [address], Rod Filler: Vikas Leung M.D. Jory Womack MD LAB SAME DAY RESULT Fin al Result [address] [address] DIRECTOR VIKAS LEUNG M.D. * BV/VAGINITIS PANELDNA PROBE (06/26/2015 5:23 PM EDT) Trichomonas vaginalis rRNA (Genital) NOT DETECTED NOT DETECTED [facility] Comment:{TRICHOMONAS: {[id number]) Gardnerella vaginalis rRNA (Genital) NOT DETECTED NOT DETECTED [facility] Comment:{GARDNERELLA: {[id number]) Analisa sp rRNA (Vag) NOT DETECTED NOT DETECTED [facility] Comment:{ANALISA: {[id number]) 06/26/2015 5:23 PM EDT 06/26/2015 11:16 PM EDT Narrative Resulting Agency Comment [id number] Jory Womack MD LABORATORY Final R esult Performing Organization Address City/State/[facility] Co de Phone Number [facility] [address] [place] [address] documented in this encounter Visit Diagnoses Diagnosis Dysuria Vaginal discharge Leukorrhea, not specified as infective documented in this encounter Care Teams Sld Inclusion Teacher Relationship Specialty Start Date End Date Brad Solo MD PCP - General 12/30/14 07/27/17 Vandana Epps MD PCP - General Internal Medicine 07/28/17 10/12/22 Unknown Pcp, Non Rmg PCP - General 10/13/22 documented as of this encounter
--- OUTSIDE RECORDS SUMMARY | 2025-03-05 11:44 | XMS_ITS | Encounter Summary ---
Author Organization [facility] Address [address] [place] [address] Care Team Providers Care Supervisor Reclamation Name Role Phone Brad Solo MD Primary Care Provider [phone] Vandana Epps MD Primary Care Provider [phone] Unknown Pcp, Non Rmg Primary Care Provider Unava ilable Encounter Details Date Type Department Care Team (Late st Contact Info) Description 05/17/2017 Orders Only [facility] Adult Medicine [address] [place] [phone] Neena Crocker LPN [facility] [address] [place] [phone] Social History Tobacco Use Types Packs/Day Years [...] Office Visit [facility]. Optometry [address] [place] [address] Agus Jacinto, OD [address] [place] [address] *est pt exam, no cl, no dm, 1 year follow up, aodv, *not elig. until 12/23/24, , 12/21* tommie, interp needed, aoir sent te over sent email to [email or web address] documented as of this encounter Visit Diagnoses Not on filedocumented in this encounter Care Teams Supervisor Reclamation Relationship Specialty Start Date End Date Brad Solo MD PCP - General 12/30/14 07/27/17 Vandana Epps MD PCP - General Internal Medicine 07/28/17 10/12/22 Unknown Pcp, Non Rmg PCP - General 10/13/22 documented as of this encounter
--- OUTSIDE RECORDS SUMMARY | 2025-03-05 11:44 | XMS_ITS | Encounter Summary ---
Author Organization [facility] Address [address] [place] [address] Care Team Providers Care Rubber And Pounder Name Role Phone Vandana Epps MD Primary Care Provider [phone] Unknown Pcp, Non Rmg Primary Care Provider Unava ilable Reason for Visit * Reason Comments E-prescribing Refill Request Encounter Details Date Type Department Care Team (Late st Contact Info) Description 06/27/2018 Refill [facility] Adult Medicine [address] [place] [phone] Jeanine Mcpherson NP E-prescribing Refill Request Social [...] Route: 1 CAPSULE DAILY - Oral Order: [id number] . Faxed/E-prescribed medication renewal request(s) for Matilde [...] Description 07/08/2025 8:30 AM EDT Office Visit [facility]. Optometry [address] [place] [address] Agus Jacinto, OD [address] [place] [address] *est pt exam, no cl, no dm, 1 year follow up, aodv, *not elig. until 12/23/24, , 12/21* tommie, interp needed, aoir sent te over sent email to [email or web address] documented as of this encounter Visit Diagnoses Not on filedocumented in this encounter Care Teams Rubber And Pounder Relationship Specialty Start Date End Date Vandana Epps MD PCP - General Internal Medicine 07/28/17 10/12/22 Unknown Pcp, Non Rmg PCP - General 10/13/22 documented as of this encounter
--- OUTSIDE RECORDS SUMMARY | 2025-03-05 11:44 | XMS_ITS | Encounter Summary ---
Author Organization [facility] Address [address] [place] [address] Care Team Providers Care Top Ironer Name Role Phone Vandana Epps MD Primary Care Provider [phone] Unknown Pcp, Non Rmg Primary Care Provider Unava ilable Encounter Details Date Type Department Care Team (Late st Contact Info) Description 10/10/2017 Orders Only [facility] STATOR TESTER [address] [place] [phone] Jory Womack MD [address] [place] [phone] Social History Tobacco Use Types Packs/Day Years [...] EDT Office Visit [facility]. Optometry [address] [place] [phone] Agus Jacinto, OD [address] [place] [address] *est pt exam, no cl, no dm, 1 year follow up, aodv, *not elig. until 12/23/24, , 12/21* tommie, interp needed, aoir sent te over sent email to [email or web address] documented as of this encounter Procedures * Due to [facility] law, this organization might not be sharing negative HIV tests. Procedure Name Priority Date/Time Associated Diagnosis Comments CHLAMYDIA TRACHOMATIS/N. GONORRHOEAE (GC) RNA, TMA (URINE) Routine 10/10/2017 4:30 PM EST Screening for chlamydial disease documented in this encounter Results * Due to [facility] law, this organization might not be sharing negative HIV tests. * CHLAMYDIA TRACHOMATIS/N. GONORRHOEAE (GC) RNA, TMA (URINE) (10/10/2017 4:30 PM EST) Chlamydia trachomatis rRNA NOT DETECTED NOT DETECTED [facility] Neisseria Gonorrhoeae rRNA NOT DETECTED NOT DETECTED [facility] COMMENT SEE NOTE [facility] Comment: This test was performed using the APTIMA COMBO2 Assay ([employer] The analytical performance characteristics of this assay, when used to test [employer] specimens have been determined by [facility]. 10/10/2017 4:30 PM EST 10/10/2017 10:00 PM EST Narrative Resulting Agency Comment [id number] us Jory Womack MD LABORATORY Final R esult Performing Organization Address City/State/[facility] Co de Phone Number [facility] [address] [place] [address] documented in this encounter Visit Diagnoses Diagnosis Screening for chlamydial disease Special screening examination for unspecified chlamydial disease documented in this encounter Care Teams Top Ironer Relationship Specialty Start Date End Date Vandana Epps MD PCP - General Internal Medicine 07/28/17 10/12/22 Unknown Pcp, Non Rmg PCP - General 10/13/22 documented as of this encounter
--- OUTSIDE RECORDS SUMMARY | 2025-03-05 11:44 | XMS_ITS | Encounter Summary ---
Author Organization [facility] Address [address] [place] [address] Care Team Providers Care Shift Production Associate Name Role Phone Brad Solo MD Primary Care Provider [phone] Vandana Epps MD Primary Care Provider [phone] Unknown Pcp, Non Rmg Primary Care Provider Unava ilable Encounter Details Date Type Department Care Team (Late Contact Info) Description 09/01/2015 Orders Only [facility] [address] [place] [phone] [facility] Allergy, Asthma & Immunology [address] [place] [phone] Social History Tobacco Use Types Packs/Day Years [...] Description 07/08/2025 8:30 AM EDT Office Visit [facility] [address] [place] [phone] Agus Jacinto, OD [address] [place] [address] *est pt exam, no cl, no dm, 1 year follow up, aodv, *not elig. until 12/23/24, , 12/21* tommie, interp needed, aoir sent te over sent email to [email or web address] documented as of this encounter Procedures * Due to [employer] law, this organization might not be sharing [...] this encounter Results * Due to [employer] law, this organization might not be sharing negative HIV tests. * DERMATOPHAGOIDES FARINAE (D2) IGE (09/01/2015 2:10 PM EDT) Dermatophagoides Farinae(D2) IgE <0.35 kU/L [facility] Comment:{DERMATOPHAGOIDES FA RINAE (D2) IGE {[id number]) Dermatophagoides Farinae(D2) Class 0 [facility] Comment:{CLASS {[id number]) 09/01/2015 2:10 PM EDT 09/01/2015 7:51 PM EDT Narrative Resulting Agency Comment [id number] us John Oviedo MD LABORATORY Final Resu lt [facility] [address] [place] [address] * DERMATOPHAGOIDESPTERONYSSINUS (D1) IGE (09/01/2015 2:10 PM EDT) Dermatophagoidespteronyssinu s (D1) IgE <0.35 kU/L [facility] Comment:{DERMATOPHAGOIDES PT ERONYSSINUS (D1) IGE {[id number]) Dermatophagoides pteronyssin us (D1) Class 0 [facility] Comment:{CLASS {[id number]) 09/01/2015 2:10 PM EDT 09/01/2015 7:51 PM EDT Narrative Resulting Agency Comment [id number] us John Oviedo MD LABORATORY Final Resu lt [facility] [address] [place] [address] documented in this encounter Visit Diagnoses Diagnosis Sinus congestion Other diseases of nasal cavity and sinuses PND (post-nasal drip) Postnasal drip Allergic rhinitis due to pollen Gastroesophageal reflux disease, esophagitis presence not specified documented in this encounter Care Teams Shift Production Associate Relationship Specialty Start Date End Date Brad Solo MD PCP - General 12/30/14 07/27/17 Vandana Epps MD PCP - General Internal Medicine 07/28/17 10/12/22 Unknown Pcp, Non [facility]mg PCP - General 10/13/22 documented as of this encounter
--- OUTSIDE RECORDS SUMMARY | 2025-03-05 11:44 | XMS_ITS | Encounter Summary ---
Author Organization [facility] Address [address] [place] [address] Care Team Providers Care Director Of Strategic Marketing Name Role Phone Unknown Pcp, Non Rmg Primary Care Provider Unava ilable Reason for Visit * Reason Comments Appointment Encounter Details Date Type Department Care Team (Late st Contact Info) Description 04/10/[address] [facility] [facility] [address] [place] [phone] Agus Jacinto OD [address] [place] [address] Appointment Social History Tobacco Use Types Packs/Day [...] Phone 07/04/24 8:30 AM Agus Jacinto OD [facility] [phone] Pt need a sign travograph operator had to reschedule to an ov2 contact sign travograph operator for this appt sent email to [email or web address] documented in this encounter Plan of Treatment Upcoming Encounters Date Type Department Care Team (Late st Contact Info) Description 07/08/2025 8:30 AM EDT Office Visit [place] [facility] [address] [place] [phone] Agus Jacinto, AYAAN [address] [place] [address] *est pt exam, no cl, no dm, 1 year follow up, aodv, *not elig. until 12/23/24, , 12/21* tommie, interp needed, aoir sent te over sent email to [email or web address] documented as of this encounter Visit Diagnoses Not on filedocumented in this encounter Care Teams Director Of Strategic Marketing Relationship Specialty Start Date End Date Unknown Pcp, Non Rmg PCP - General 10/13/22 documented as of this encounter
--- OUTSIDE RECORDS SUMMARY | 2025-03-05 11:45 | XMS_ITS | Continuity of Care Document ---
Author Organization [facility] Address [address] [place] [address] Care Team Providers Care Care Process Manager Name Role Phone Unknown Pcp, Non Rmg Primary Care Provider Unava ilable Encounters Date Type Department Care Team Description 01/28/2025 Refill [facility] Services [address] [place] [phone] Alexandra Cancino, OD E-prescribing Refill Request 11/19/[address] [facility] [address] [place] [phone] Agus Jacinto, OD E-prescribing Refill Request 07/04/2024 8:30 AM EDT Office Visit [facility] [phone] Agus Jacinto, OD History of retinal detachment 04/25/2024 Refill [facility] Services [address] [place] [phone] Alexandra Cancino OD Refill Request 04/10/[address] [facility] [address] [place] [phone] Agus Jacinto, OD Appointment 01/12/[address] [facility] [address] [place] [phone] Alexandra Cancino, OD E-prescribing Refill Request 12/22/2022 8:00 AM EST Office Visit [facility] Services [address] [place] [phone] Alexandra Cancino, OD Encounter for ophthalmic examination and evaluation (Primary Dx); Presbyopia; History of retinal detachment 06/22/2022 Orders Only [facility] Ophthalmology [address] [place] [address] Margaret Meza Tech Medications 09/29/2021 Refill [facility] Visual Services [address] [place] [phone] Alexandra Cancino, OD E-prescribing Refill Request 04/22/2021 Travel 04/22/2021 1:20 PM EDT Office Visit [address] [phone] Alexandra Cancino, OD Encounter for ophthalmic examination and evaluation (Primary Dx); Presbyopia; History of retinal detachment; Aphakia, right 12/03/2020 Travel 12/03/2020 1:45 PM EST Office Visit [facility] Pulmonary [address] [place] [address] [address] [place] [address] Eloy Pritchard MD Chronic cough (Primary Dx); Postnasal drip; Hiatal hernia; Non-allergic rhinitis 10/20/2020 Refill [facility] Adult Medicine [address] [place] [phone] Vandana Epps MD E-prescribing Refill Request 09/29/[address] [address] Alexandra Cancino, OD Eye Problem 09/16/2020 Refill [facility] Adult Medicine [address] [place] [phone] Vandana Epps MD E-prescribing Refill Request 09/13/2020 Minor Procedure/Test [facility] [address] [place] [address] [facility], Unknown Provider 09/03/2020 Refill [facility] Adult Medicine [address] [place] [phone] Vandana Epps MD E-prescribing Refill Request 06/24/[address] [address] Vandana Epps MD E-prescribing Refill Request 04/30/[address] [address] Vandana Epps MD 04/16/2020 Travel 04/16/2020 9:15 AM EDT Office Visit [facility] Pulmonary [address] [place] [address] [address] [place] [address] Eloy Pritchard MD Chronic cough (Primary Dx); Postnasal drip; Hiatal hernia; Gastroesophageal reflux disease, esophagitis presence not specified 04/15/2020 Letter/Form [address] [address] Kadeem Steele MD 03/21/2020 Travel 03/05/2020 Travel 02/28/[address] [address] Vandana Epps MD Prescription Assistance 02/12/2020 Travel 02/11/[address] [address] Vandana Epps MD Error 02/11/[address] [address] Vandana Epps MD Refill Request ; Refill Request 02/09/[address] [address] Vandana Epps MD E-prescribing Refill Request 10/23/2019 Orders Only [address] [address] Vandana Epps MD 10/23/2019 1:00 PM EST CPE - Comprehensive Physical Exam [address] [address] Vandana Epps MD Routine history and physical examination of adult (Primary Dx); Screening for hyperlipidemia; Weight loss; Postnasal drip; Chronic cough; Gastroesophageal reflux disease, esophagitis presence not specified; Well adult exam 10/23/2019 2:00 PM EST Office Visit [facility] COLD WORKING INSPECTOR [address] [place] [phone] Diane Blanton MD Perimenopausal disorder (Primary Dx); Screening breast examination 10/18/2019 8:45 AM EST Consult (Initial) [facility] Pulmonary [address] [place] [phone] Eloy Pritchard MD Cough (Primary Dx); Chronic cough; Postnasal drip; Non-allergic rhinitis; Hiatal hernia 10/17/2019 1:30 PM EST Radiology [facility] Xray [address] [place] [address] 10/16/[address] [address] Vandana Epps MD Other 09/12/2019 Minor Procedure/Test [facility] [address] [place] [address] [facility], Unknown Provider 09/12/2019 10:30 AM EDT Office Visit [address] [address] Vandana Epps MD Cough (Primary Dx); Need for vaccination; Need for immunization against influenza 08/27/[address] [address] Vandana Epps MD Cough 08/22/[address] [address] Vandana Epps MD E-prescribing Refill Request 08/04/[address] [address] Vandana Epps MD E-prescribing Refill Request 06/14/[address] [phone] Vandana Epps MD Results 06/13/2019 1:30 PM EDT Office Visit [address] [address] Vandana Epps MD Pharyngitis, unspecified etiology (Primary Dx); Cough 03/21/[address] [address] Vandana Epps MD E-prescribing Refill Request 02/26/2019 Consult (Initial) REHABILITATION UNSPEC Provider, Unknown 02/14/[address] [address] Vandana Epps MD 02/13/[address] [address] Vandana Epps MD E-prescribing Refill Request 02/08/2019 10:00 AM EDT Office Visit [facility] Visual Services [address] [place] [phone] Heidy Pritchard, OD Bilateral deafness; History of retinal detachment; Encounter for ophthalmic examination and evaluation; Disorder of refraction 02/05/[address] [address] Vandana Epps MD 01/18/2019 Consult (Initial) REHABILITATION UNSPEC Provider, Unknown 12/26/[address] [address] Vandana Epps MD Other 12/26/2018 12:30 PM EST Radiology [facility] Xray [address] [place] [address] Neck pain 12/26/2018 11:30 AM EST Office Visit [address] [address] Vandana Epps MD Left arm pain (Primary Dx); Neck pain; Chronic left shoulder pain 12/19/2018 11:30 AM EST Minor Procedure/Test [facility] Cardiology [address] [place] [phone] Joaquin Wooten MD Chest pain, unspecified type (Primary Dx) 12/13/2018 2:00 PM EST Radiology [facility] Xray [address] [place] [address] Left shoulder pain, unspecified chronicity 12/13/2018 Orders Only [facility] Orthopedic Surgery [address] [place] [address] Car Rodriguez DO 12/13/2018 1:00 PM EST Consult (Initial) [facility] Orthopedic Surgery [address] [place] [address] Car Rodriguez, Left arm pain (Primary Dx); Chest wall pain; Left elbow pain; Left lateral epicondylitis 12/08/[address] [address] Vandana Epps MD Refill Request 11/07/2018 Refill [facility] Pulmonary [address] [facility] [address] [place] [address] Eloy Pritchard MD Refill Request 10/31/[address] [address] Vandana Epps MD Refill Request 10/24/[address] [address] Vandana Epps MD Results 10/18/2018 Orders Only [facility] Cardiology [address] [facility] [address] [place] [address] Batsheva Tamez, DO 10/18/2018 10:45 AM EST Radiology [facility] Xray [address] [place] [address] 10/18/2018 Orders Only [facility] Medicine [address] [place] [phone] Vandana Epps MD 10/18/[address] [address] Vandana Epps MD PT-1 Form 10/18/2018 10:00 AM EST Office Visit [facility] COLD WORKING INSPECTOR [address] [place] [phone] Diane Blanton MD Perimenopausal disorder (Primary Dx) 10/18/2018 8:30 AM EST CPE - Comprehensive Physical Exam [address] [phone] Vandana Epps MD Routine history and physical examination of adult (Primary Dx); Chronic cough; Gastroesophageal reflux disease, esophagitis presence not specified; Chest pain, unspecified type; Weight loss; Chronic left shoulder pain; Screening for hypercholesterolemia; Immunization due 10/07/[address] [phone] Vandana Epps MD E-prescribing Refill Request 10/06/[address] [address] Vandana Epps MD Refill Request 09/29/[address] [address] Vandana Epps MD 09/25/2018 Letter/Form INTERNAL MED UNSPEC Vandana Epps MD 09/11/2018 Minor Procedure/Test [address], Unknown Provider 09/05/[address] [address] Vandana Epps MD Referral Request 08/24/[address] [phone] Vandana Epps MD E-prescribing Refill Request 07/18/2018 [place] [address] Johnny Potter MD 06/27/[address] [phone] Jeanine Mcpherson NP E-prescribing Refill Request 06/14/2018 9:15 AM EDT Office Visit [address] [address] Vandana Epps MD Gastroesophageal reflux disease without esophagitis (Primary Dx) 04/10/2018 3:00 PM EDT Office Visit [facility] Pulmonary [address] [facility] 2nd Floor [address] [place] [address] Eloy Pritchard MD Chronic cough (Primary Dx); Postnasal drip; Non-allergic rhinitis 04/08/[address] [address] Jeanine Mcpherson NP E-prescribing Refill Request 03/11/[address] [address] Jeanine Mcpherson NP E-prescribing Refill Request 03/06/[address] [address] Vandana Epps MD Refill Request 03/03/[address] [address] Vinita Rai MD E-prescribing Refill Request 02/23/[address] [address] Vandana Epps MD Refill Request 02/13/2018 Refill [facility] Family Practice [address] [place] [address] Tavo Martinez MD E-prescribing Refill Request 02/03/[address] [address] Vandana Epps MD Refill Request ([facility]) 01/24/[address] [address] Vandana Epps MD Colonoscopy/EGD 01/19/2018 Refill [facility] Medicine [address] [place] [phone] Vandana Epps MD Refill Request 01/19/2018 Telephone [facility] Pulmonary [address] [place] [address] Eloy Pritchard MD Prescription Assistance (Refill); Refill Request 01/09/[address] [address] Vandana Epps MD Refill Request 12/26/2017 Refill [facility] [employer] WORKING INSPECTOR [address] [place] [address] Diane Blanton MD Balodimos, Iphigenia MD; Refill Request 12/21/2017 Telephone [facility] Pulmonary [address] [place] [address] Eloy Pritchard MD FYI ; Prescription Assistance 12/21/[address] [address] Vandana Epps MD Refill Request 12/07/[address] [address] Vandana Epps MD Prescription Assistance 12/02/2017 [facility]ill [facility] Pulmonary [address] [place] [address] Eloy Pritchard MD Refill Request 12/02/[address] [address] Vandana Epps MD Refill Request 10/12/2017 Orders Only [address] [address] Vandana Epps MD 10/12/2017 11:45 AM EST CPE - Comprehensive Physical Exam [address] [address] Vandana Epps MD Routine history and physical examination of adult (Primary Dx); Need for influenza vaccination; Back pain, unspecified back location, unspecified back pain laterality, unspecified chronicity; Abdominal pain, unspecified abdominal location; Screen for STD (sexually transmitted disease); Flu vaccine need; Screening for hyperlipidemia 10/10/2017 Orders Only [facility] COLD WORKING INSPECTOR [address] [place] [phone] Diane Blanton MD 10/10/2017 3:00 PM EST Office Visit [facility] COLD WORKING INSPECTOR [address] [place] [phone] Diane Blanton MD Perimenopausal disorder (Primary Dx); Screening for chlamydial disease 10/04/2017 3:00 PM EST Office Visit [facility] Pulmonary [address] [place] [address] [address] [place] [address] Eloy Pritchard MD Chronic cough (Primary Dx); Post-nasal drainage 09/20/2017 Refill [facility] Pulmonary [address] [place] [address] [address] [place] [address] Eloy Pritchard MD Patient Questions ; Refill Request 09/15/2017 Orders Only [facility] Medicine [address] [place] [phone] Vandana Epps MD 09/08/2017 Minor Procedure/Test AUDIOLOGY UNSPECIFIED Provider, Unknown 09/08/2017 Minor Procedure/Test INTERNAL MED UNSPEC Abdi Solo MD 09/08/2017 Telephone [facility] Medicine [address] [place] [phone] Vandana Epps MD Other 09/08/2017 Minor Procedure/Test [address], Unknown Provider 09/07/2017 Telephone [facility] Medicine [address] [place] [address] Vandana Epps MD Referral Request 08/24/2017 Minor Procedure/Test [address] [address] Abdi Solo MD [facility], Unknown Provider 08/18/[address] [address] Jeaneth Mcbride LPN Referral Request 08/02/2017 Refill [facility] COLD WORKING INSPECTOR [address] [place] [phone] Diane Blanton MD Balodimos, Iphigenia MD; Refill Request 07/12/[address] [address] Abdi Solo MD Refill Request 06/23/2017 2:00 PM EDT Office Visit [facility] Pulmonary [address] [place] [address] Eloy Pritchard MD Postnasal drip (Primary Dx); Cough 06/17/[address] [address] Abdi Solo MD Results 06/14/2017 Orders Only [address] [address] Abdi Solo MD 06/14/2017 10:45 AM EDT Office Visit [address] [address] Abdi Solo MD Multiple joint pain (Primary Dx); Chronic cough; Gastroesophageal reflux disease, esophagitis presence not specified; Deafness, bilateral; Varicose veins of both lower extremities; Insomnia, unspecified type; Anxiety; Post-nasal drainage 05/17/2017 Orders Only [address] [address] Neena Crocker LPN 05/13/2017 12:45 PM EDT Consult (Initial) [facility] Pulmonary [address] [place] [address] [place] [address] Eloy Pritchard MD Postnasal drip (Primary Dx); Cough 04/18/2017 Home Visit [facility] UNSPEC Provider, Unknown 04/18/2017 12:30 PM EDT Office Visit [address] [address] Karen Luciano NP Acute URI (Primary Dx); Cough; Acute pharyngitis, unspecified etiology; Allergic rhinitis, unspecified allergic rhinitis trigger, unspecified rhinitis seasonality 04/18/[address] [address] Abdi Solo MD Sore Throat; Cough 04/12/2017 1:15 PM EDT Office Visit [address] [address] Jeanine Mcpherson NP Upper respiratory tract infection, unspecified type (Primary Dx) 03/29/[address] [address] Abdi Solo MD Prescription Assistance 03/08/2017 Letter/Form INTERNAL MED UNSPEC Abdi Solo MD 02/24/2017 11:00 AM EDT Radiology [facility] Ultrasound [address] [place] [address] 02/24/2017 11:30 AM EDT Office Visit [facility] COLD WORKING INSPECTOR [address] [place] [phone] Diane Blanton MD Perimenopausal disorder (Primary Dx) 02/18/2017 9:45 AM EDT Office Visit [address] [address] Abdi Solo MD Chronic cough (Primary Dx); Gastroesophageal reflux disease, esophagitis presence not specified; Deafness, bilateral; Insomnia, unspecified type; Varicose veins of both lower extremities; Gastroesophageal reflux disease without esophagitis; Vitamin D deficiency; Polyp of colon, unspecified part of colon, unspecified type; Non-allergic rhinitis; Anxiety 01/18/2017 Telephone [facility] COLD WORKING INSPECTOR [address] [place] [phone] BalodiDiane rogers MD Balodimos, Iphigenia MD; Care Coordination Communication 01/07/2017 Refill [facility] Medicine [address] [place] [phone] Abdi Solo MD Refill Request 12/30/[address] [phone] Abdi Solo MD Care Coordination Communication 12/30/2016 11:45 AM EST Office Visit [facility] Visual Services [address] [place] [phone] Heidy Pritchard, AYAAN Examination of eyes and vision (Primary Dx); History of retinal detachment 12/29/2016 Letter/Form INTERNAL MED UNSPEC Abdi Solo MD 12/24/2016 Minor Procedure/Test GASTRO UNSPECIFIED Johnny Potter MD 12/13/2016 Telephone [facility] COLD WORKING INSPECTOR [address] [place] [phone] Diane Blanton MD Balodimos, Iphigenia MD; Appointment 11/02/2016 Orders Only [facility] Otolaryngology [address] [facility] [address] [place] [phone] Rebecca Hollins LPN Medications 11/02/2016 Telephone [facility] Otolaryngology [address] [facility] [address] [place] [address] Tami Doyle MD Refill Request 11/02/2016 Telephone [facility] Podiatry [address] [place] [phone] Ирина Taylor DPM Prescription Assistance 10/29/[address] [phone] Abdi Solo MD Referral Request 10/29/[address] [phone] Abdi Solo MD Refill Request ; Prescription Assistance 10/29/[address] [place] [address] Abdi Solo MD Vision Screening 10/29/2016 10:30 AM EST Consult (Initial) [facility] Otolaryngology [address] [place] [address] Tami Doyle MD Cough (Primary Dx); Gastroesophageal reflux disease, esophagitis presence not specified; Dyspnea, unspecified type 10/26/2016 Refill [facility] Medicine [address] [place] [phone] Abdi Solo MD Refill Request 10/06/2016 Orders Only [facility] COLD WORKING INSPECTOR [address] [place] [phone] Cintia Gómez NP 10/06/2016 1:15 PM EST Office Visit [facility] COLD WORKING INSPECTOR [address] [place] [phone] Cintia Gómez NP Encounter for gynecological examination without abnormal finding (Primary Dx); Dysmenorrhea; Perimenopause 09/09/2016 2:15 PM EDT Office Visit [facility] Family Practice [address] [place] [address] Tavo Martinez MD Cough (Primary Dx) 09/07/2016 Office Visit [facility] UNSPECIFIED Unknown Pcp, Non Rmg 09/07/[address] [phone] Abdi Solo MD Cough 09/06/[address] [phone] Abdi Solo MD Refill Request 09/01/[address] [phone] Jeaneth Mcbride LPN Refill Request 09/01/[address] [phone] Abdi Solo MD Medication Check; Return Call 08/24/2016 Orders Only [facility] Medicine [address] [place] [phone] Abdi Solo MD 08/23/2016 Orders Only [facility] COLD WORKING INSPECTOR [address] [place] [phone] Diane Blanton MD 08/20/[address] [phone] Abdi Solo MD Prescription Assistance 08/19/[address] [phone] Abdi Solo MD Labs/orders 08/19/[address] [phone] Abdi Solo MD Prescription Assistance 08/19/2016 Orders Only [address] [phone] Abdi Solo MD 08/19/2016 1:00 PM EDT Office Visit [address] [phone] Abdi Solo MD Routine history and physical examination of adult (Primary Dx); Cough; Gastroesophageal reflux disease without esophagitis; Colon polyps; Post-nasal drainage; Vitamin D deficiency; Anxiety; Deafness, bilateral; Screening cholesterol level; Need for immunization against influenza 08/18/2016 Orders Only [facility] [address] [place] [address] [facility], Unknown Provider 08/18/2016 Minor Procedure/Test INTERNAL MED UNSPEC Abdi Solo MD 07/26/2016 Minor Procedure/Test AUDIOLOGY UNSPECIFIED Provider, Unknown 06/08/[address] [phone] Abdi Solo MD Referral Request 04/08/[address] [phone] Abdi Solo MD Refill Request 03/05/2016 Orders Only [address] [address] Xavi Ojeda PA 02/18/2016 Consult (Initial) GEN VAS UNSPECIFIED Trinity Phillip NP 01/26/[address] [phone] Abdi Solo MD Vomiting ; Cough ; Congestion; FYI 01/07/[address] [phone] Abdi Solo MD Refill Request 12/30/[address] [phone] Abdi Solo MD [facility] 12/04/[address] [phone] Abdi Solo MD Refill Request 11/19/2015 Consult (Initial) [address] [address] Trinity Phillip, ESTELA 11/19/2015 9:30 AM EST Office Visit [facility] Orthopedic Surgery [address] [address] Xavi Ojeda PA Nondisplaced fracture of third metatarsal bone of left foot with routine healing, subsequent encounter (Primary Dx) 11/12/2015 Telephone [facility] Orthopedic Surgery [address] [address] Xavi Ojeda PA Letter/form Request (JL) 11/10/2015 Surgery/Major Procedure GEN VAS UNSPECIFIED Mack Mccarthy. 11/05/2015 3:00 PM EST Office Visit [address] [phone] Buffy Capps NP Dysphagia, unspecified dysphagia (Primary Dx); Cough 10/30/2015 Orders Only NON [facility] [address] [place] [address] [facility], Unknown Provider 10/30/[address] [address] Abdi Solo MD Imaging Study 10/30/2015 11:00 AM EST Office Visit [facility] Orthopedic Surgery [address] [facility] [address] [place] [phone] Noris Cruz PA Nondisplaced fracture of third metatarsal bone of left foot with routine healing, subsequent encounter (Primary Dx) 10/29/2015 Telephone [facility] Medicine [address] [place] [phone] Abdi Solo MD Information 10/28/2015 Orders Only [facility] [address] [place] [phone] John Oviedo MD 10/22/2015 Minor Procedure/Test INTERNAL MED UNSPEC Abdi Solo MD 10/21/2015 Consult (Initial) GEN VAS UNSPECIFIED Mack Mccarthy 10/15/[address] [phone] Abdi Solo MD Imaging Study 10/15/2015 Orders Only [address] [phone] Buffy Capps NP 10/15/2015 1:30 PM EST Consult (Initial) [facility] Orthopedic Surgery [address] [facility] [address] [place] [phone] Noris Cruz PA Closed nondisplaced fracture of third metatarsal bone of left foot, initial encounter (Primary Dx) 10/13/2015 Telephone [facility] Medicine [address] [place] [phone] Abdi Solo MD Referral Request 10/10/[address] [phone] Abdi oSlo MD Information 10/09/[address] [phone] Neena Crocker LPN Results 10/06/2015 Home Visit JHON GANN UNSPEC Provider, Unknown 10/06/2015 1:30 PM EST Radiology [facility] Xray [address] [place] [address] Acute foot pain, left 10/06/2015 12:45 PM EST Office Visit [address] [phone] Karen Luciano NP Acute foot pain, left (Primary Dx) 10/06/[address] [phone] Abdi Solo MD Foot Pain 09/23/2015 10:45 AM EDT Radiology [facility] Xray [address] [place] [address] Cough 09/23/2015 10:00 AM EDT Office Visit [address] [phone] Buffy Capps NP Cough (Primary Dx); Need for influenza vaccination 09/17/[address] [phone] Abdi Solo MD 09/09/2015 Consult (Initial) GEN VAS UNSPECIFIED Mack Mccarthy 09/02/[address] [phone] John Oviedo MD Return Call 09/01/2015 Orders Only [facility] Allergy [address] [place] [phone] John Oviedo MD 09/01/2015 1:40 PM EDT Office Visit [facility] Allergy [address] [place] [phone] John Oviedo MD Non-allergic rhinitis (Primary Dx); Gastroesophageal reflux disease without esophagitis; Post-nasal drainage 08/27/[address] [phone] Abdi Solo MD Refill Request (Arturo Patton) 08/14/2015 Abstract [facility] Medicine [address] [place] [phone] Abdi Solo MD 08/13/2015 Orders Only [facility] Allergy [address] [place] [phone] John Oviedo MD 08/13/[address] [phone] Abdi Solo MD Information 08/13/2015 1:40 PM EDT Office Visit [facility] Allergy [address] [place] [phone] John Oviedo MD PND (post-nasal drip) (Primary Dx); Sinus congestion; Allergic rhinitis due to pollen; Gastroesophageal reflux disease, esophagitis presence not specified 08/07/2015 Letter/Form INTERNAL MED UNSPEC Abdi Solo MD 08/06/2015 Telephone [facility] Medicine [address] [place] [phone] Abdi Solo MD Letter/form Request 08/06/[address] [phone] Abdi Solo MD Refill Request ([facility] [address] [address]) 07/28/[address] [phone] Abdi Solo MD Other 07/16/2015 Telephone [facility] Medicine [address] [place] [phone] Abdi Solo MD Unable To Schedule 07/10/2015 Consult (Initial) GEN VAS UNSPECIFIED Provider, Unknown 07/02/2015 Minor Procedure/Test INTERNAL MED UNSPEC Abdi Solo MD 06/30/2015 Refill [facility] COLD WORKING INSPECTOR [address] [place] [phone] Diane Blanton MD Results 06/26/2015 Orders Only [facility] COLD WORKING INSPECTOR [address] [place] [phone] Diane Blanton MD 06/26/2015 2:00 PM EDT Office Visit [facility] COLD WORKING INSPECTOR [address] [place] [phone] Diane Blanton MD Routine gynecological examination (Primary Dx); Vaginal discharge; Dysmenorrhea; Dysuria; Screening breast examination 06/26/2015 1:00 PM EDT CPE - Comprehensive Physical Exam [address] [phone] Abdi Solo MD Routine history and physical examination of adult (Primary Dx); Deafness, unspecified laterality; Sinus congestion; Varicose veins; Insomnia; Anxiety; Vitamin D deficiency; Post-nasal drainage; Gastroesophageal reflux disease without esophagitis; Colon polyps; Acute right eye pain; Environmental allergies 06/24/2015 Consult (Initial) GEN VAS UNSPECIFIED [facility], Unknown Provider 06/20/2015 Consult (Initial) REHABILITATION UNSPEC Provider, Unknown 06/12/2015 Surgery/Major Procedure GEN VAS UNSPECIFIED Mack Mccarthy 06/10/[address] [phone] Abdi Solo MD Refill Request ; Return Call 06/04/2015 9:15 AM EDT Office Visit [address] [phone] Buffy Capps NP Neck pain (Primary Dx); Knee pain, unspecified laterality 06/02/[address] [phone] Abdi Solo MD Results 05/16/2015 Hospital/Inpatient [facility]/[address] [address] Provider, Unknown 05/15/[address] [phone] Abdi Solo MD Refill Request ([facility]) 05/05/[address] [phone] Abdi Solo MD Results 04/30/2015 2:45 PM EDT Radiology [address] [address] Left knee pain (Primary Dx) 04/30/2015 2:00 PM EDT Office Visit [address] [phone] Buffy Capps NP Left knee pain (Primary Dx) 04/14/[address] [phone] Abdi Solo MD Other ; Provider (ABDI SOLO MD (Medical Doctor,Internal Medicine A-[id number]) [facility] ([id number])) 04/10/2015 Office Visit [address] [phone] Abdi Solo MD Abnormal weight gain; Benign neoplasm of colon; Other allergy, other than to medicinal agents; Unspecified hearing loss; Pain in joint, lower leg; Disturbance of skin sensation; Asymptomatic varicose veins; Cough; Anxiety state, unspecified; Abdominal pain, epigastric; Unspecified sinusitis (chronic); Insomnia, unspecified; Other diseases of nasal cavity and sinuses(478.19); Esophageal reflux; Unspecified vitamin D deficiency 04/10/[address] [phone] Abdi Solo MD Medication Problem ; Provider (ABDI SOLO MD (Medical Doctor,Internal Medicine A-[id number]) [facility] ([id number])) 04/03/[address] [phone] Abdi Solo MD Refill Request (Arturo Patton LT); Provider (ABDI SOLO MD (Medical Doctor,Internal Medicine A-[id number]) [facility] ([id number])) 03/25/2015 Consult (Initial) PODIATRY UNSPECIFIED Mary Meredith 03/25/2015 Letter/Form NON FC SA NON FC UNK Lorhilary Mary C. Other unknown and unspecified cause of morbidity or mortality 02/05/[address] [phone] Abdi Solo MD Refill Request ([facility]); Provider (ABDI SOLO MD (Medical Doctor,Internal Medicine A-[id number]) [facility] ([id number])) 01/15/2015 Orders Only NON FC SA FC UNK Abdi Solo MD 01/01/2015 Consult (Initial) PODIATRY UNSPECIFIED Loretz, Mary C. 01/01/2015 Letter/Form NON FC SA NON FC UNK Lorhilary Mary C. Other unknown and unspecified cause of morbidity or mortality 12/18/[address] [phone] Unknown Pcp, Non Rmg Medication Problem ; Provider (NON ATRIUS PCP (Internal Medicine A-4) [facility] ([id number])) 12/18/[address] [phone] Unknown Pcp, Non Rmg 12/17/2014 Letter/Form NON FC SA NON FC UNK Provider, Unknown 12/17/[address] [phone] Unknown Pcp, Non Rmg Refill Request ([facility]); Provider (NON ATRIUS PCP (Internal Medicine A-4) [facility] ([id number])) 12/17/[address] [phone] Unknown Pcp, Non Rmg Patient Questions ; Medication Problem ; Provider (NON ATRIUS PCP (Internal Medicine A-4) [facility] ([id number])) 11/20/2014 Letter/Form NON FC SA NON FC UNK Provider, Unknown 11/20/2014 Abstract [facility] Medicine [address] [place] [phone] Unknown Pcp, Non Rmg 10/16/[address] [phone] Unknown Pcp, Non Rmg Other ; Provider (NON ATRIUS PCP (Internal Medicine A-4) [facility] ([id number])) 10/14/[address] [phone] Unknown Pcp, Non Rmg Refill Request (Anna); Provider (NON ATRIUS PCP (Internal Medicine A-4) [facility] ([id number])) 2014 Letter/Form [address] [phone] Abdi Solo MD 09/11/2014 Letter/Form NON FC SA NON FC UNK Provider, Unknown 09/11/[address] [phone] Bonnie Patel LPN Other ; Provider (BONNIE PATEL LPN (Licensed Practical Nurse,Internal Medicine A-[id number]) [facility] ([id number])) 09/11/[address] [phone] Abdi Solo MD Return Call ; Provider (ABDI SOLO MD (Medical Doctor,Internal Medicine A-82305) [facility] ([id number])) 09/11/2014 Orders Only [facility] Laboratory Services [address] [place] [phone] Abdi Solo MD 09/11/2014 Office Visit [address] [phone] Abdi Solo MD Dysuria; Unspecified vitamin D deficiency; Other allergy, other than to medicinal agents; Need for prophylactic vaccination and inoculation against influenza; Anxiety state, unspecified; Esophageal reflux 09/05/2014 Orders Only NON FC SA FC UNK Abdi Solo MD 08/30/2014 Minor Procedure/Test OPHTHAL UNSPECIFIED Provider, Unknown 08/22/2014 Letter/Form [facility] Pediatrics [address] [place] [phone] Abdi Solo MD 07/23/2014 Letter/Form [facility] Medicine [address] [place] [phone] Abdi Solo MD 06/24/2014 Letter/Form NON FC SA NON FC UNK Provider, Unknown 06/24/2014 Abstract [facility] Adult Medicine [address] [place] [phone] Unknown Pcp, Non Rmg 06/20/2014 Telephone [facility] COLD WORKING INSPECTOR [address] [place] [phone] Diane Blanton MD Return Call ; Provider (DIANE BLANTON MD (Medical Doctor,Obstetrics and Gynecology A-51247) [facility] Obstetrics [facility] Gynecology ([id number])) 06/18/2014 Telephone [facility] Adult Medicine [address] [place] [phone] Abdi Solo MD Other ; Provider (ABDI SOLO MD (Medical Doctor,Internal Medicine A-72109) [facility] ([id number])) 06/17/2014 Telephone [facility] COLD WORKING INSPECTOR [address] [place] [phone] Diane Blanton MD Other ('S JAZZY #); Provider (DIANE BLANTON MD (Medical Doctor,Obstetrics and Gynecology A-[id number]) [facility] Ob[facility]etrics [facility] Gynecology ([id number])) 06/17/2014 Telephone [facility] COLD WORKING INSPECTOR [address] [place] [phone] Diane Blanton MD Other ; Provider (DIANE BLANTON MD (Medical Doctor,Obstetrics and Gynecology A-43682) [facility] Obstetrics [facility] Gynecology (AD-[id number])) 06/17/2014 Refill [facility] COLD WORKING INSPECTOR [address] [place] [phone] Diane Blanton MD Other ; Provider (DIANE BLANTON MD (Medical Doctor,Obstetrics and Gynecology A-01802) [facility] Ob[facility]etrics [facility] Gynecology (AD-[id number])) 06/13/[address] [phone] Abdi Solo MD Other ; Provider (ABDI SOLO MD (Medical Doctor,Internal Medicine A-47208) [facility] Medicine ([id number])) 06/13/2014 Orders Only [address] [phone] Abdi Solo MD 06/12/2014 CPE - Comprehensive Physical Exam [facility] COLD WORKING INSPECTOR [address] [place] [phone] Diane Blanton MD Routine gynecological examination; Other screening breast examination; Other screening mammogram; Screening for malignant neoplasm of the cervix; Other disorder of menstruation and other abnormal bleeding from female genital tract; Unspecified symptom associated with female genital organs 06/12/2014 Office Visit [address] [phone] Abdi Solo MD Abdominal pain, epigastric; Esophageal reflux; Other diseases of nasal cavity and sinuses(478.19); Cough; Pain in joint, lower leg; Special screening for malignant neoplasms, colon; Need for prophylactic vaccination with combined lzgeezikeg-uflaswi-um rtussis (DTP) vaccine; Pain in joint, multiple sites; Unspecified vitamin D deficiency; Screening examination for pulmonary tuberculosis 06/06/2014 Letter/Form [facility] COLD WORKING INSPECTOR [address] [place] [phone] Diane Blanton MD 05/23/2014 Letter/Form [address] [phone] Abdi Solo MD 03/19/2014 Letter/[place] [address] [place] [phone] Abdi Solo MD 03/19/[address] [phone] Abdi Solo MD 03/07/[address] [phone] Abdi Solo MD Other ; Provider (ABDI SOLO MD (Medical Doctor,Internal Medicine A-46878) [facility] ([id number])) 03/06/2014 Orders Only [address] [phone] Abdi Solo MD Medications 03/06/2014 CPE - Comprehensive Physical Exam [address] [phone] Abdi Solo MD Breast screening, unspecified; Pain in joint, multiple sites; Screening for lipoid disorders; Anxiety state, unspecified; Unspecified hearing loss; Asymptomatic varicose veins; Esophageal reflux; Chest pain, unspecified; Need for prophylactic vaccination against Streptococcus pneumoniae (pneumococcus); Routine general medical examination at a health care facility 03/05/[address] [phone] Abdi Solo MD Other (CONFIRM APPT); Provider (ABDI SOLO MD (Medical Doctor,Internal Medicine A-72414) [facility] ([id number])) 01/21/[address] [phone] Abdi Solo MD 01/18/[address] [phone] Abdi Solo MD Other (INFORMATION NEEDED); Provider (ABDI SOLO MD (Medical Doctor,Internal Medicine A-45872) [facility] ([id number])) 01/10/[address] [phone] Abdi Solo MD Other ; Provider (ABDI SOLO MD (Medical Doctor,Internal Medicine A-61253) [facility] (-[id number])) 01/08/[address] [phone] Abdi Solo MD Other (HPC FORM); Medication Problem ; Provider (ABDI SOLO MD (Medical Doctor,Internal Medicine A-53351) [facility] ([id number])) 01/08/[address] [phone] Abdi Solo MD Refill Request ([facility] [address] [place] [address] AT [facility] [phone]); Provider (ABDI SOLO MD (Medical Doctor,Internal Medicine A-[id number]) [facility] (-[id number])) 12/25/2013 Orders Only [address] [phone] Abdi Solo MD 12/21/[address] [phone] Abdi Solo MD Return Call ; Provider (ABDI SOLO MD (Medical Doctor,Internal Medicine A-02407) [facility] (-[id number])) 12/13/2013 Letter/Form NON FC SA NON FC UNK Provider, Unknown 12/13/2013 Office Visit [address] [phone] Abdi Solo MD Asymptomatic varicose veins; Abdominal pain, epigastric; Anxiety state, unspecified; Insomnia, unspecified; Other diseases of nasal cavity and sinuses; Unspecified hearing loss; Pain in limb 12/07/[address] [phone] Abdi Solo MD Other ; Provider (ABDI SOLO MD (Medical Doctor,Internal Medicine A-56260) [facility] ([id number])) 11/29/2013 Home Visit [address] [phone] Abdi Solo MD 11/29/2013 Conversion Man [address] [phone] Abdi Solo MD Other unknown and unspecified cause of morbidity or mortality 11/22/2013 Letter/Form [address] [phone] Abdi Solo MD 10/30/[address] [phone] Abdi Solo MD [facility] F/U ; Provider (ABDI SOLO MD (Medical Doctor,Internal Medicine A-[id number]) [facility] ([id number])) 04/25/2013 Minor Procedure/Test OPHTHAL UNSPECIFIED Provider, Unknown [...] Description 07/08/2025 8:30 AM EDT Office Visit [facility]. Optometry [address] [place] [address] Agus Jacinto, OD [address] [place] [address] *est pt exam, no cl, no dm, 1 year follow up, aodv, *not elig. until 12/23/24, , 12/21* tommie, interp needed, aoir sent te over sent email to [email or web address] Procedures * Due to [place] state law, this organization might not be sharing negative HIV tests. Procedure Name Priority Date/Time Associated Diagnosis Comments [facility] BILATERAL SCREENING DIGITAL MAMMOGRAM WITH CK 09/15/2020 [...] 786.2) FC Routine 10/17/2019 1:38 PM EST [facility] BILATERAL SCREENING DIGITAL MAMMOGRAM WITH CK 09/12/2019 [...] Acute pharyngitis, unspecified etiology US TRANSVAGINAL (FOR COLD WORKING INSPECTOR DEPT USE ONLY) Routine 02/24/2017 11:29 AM [...] due to pollen ALLERGEN (IGE), CONV. RAST-EDWINA ACMPUZANO (672) Routine 08/13/2015 2:50 PM EDT Sinus [...] TEST/PROCEDURE, UNSPECIFIED 04/25/2013 Results * Due to [place] state law, [...] dense breast tissue shown on mammography. Per [employer] Appropriateness Criteria ??for Breast Cancer Screening (https://acsearch.acr.org/docs/30207/Narrative/) patient may benefit from tomosynthesis on future mammography and supplemental imaging with automated breast ultrasound (ABUS) or breast MRI depending on risk factors. Automated Breast Ultrasound (ABUS) is available at [facility]. To schedule a patient, you can either enter an ABUS order into [facility] (type ABUS), call [facility] at [phone], or fax an external order to [phone]. Breast MRI is available at [facility] ([facility], [facility], and [facility]). To schedule, enter a breast MRI order into [facility] (MRI Breast Bilateral W WO contrast and 3DCAD), call [phone] or [phone], or fax [phone]. Procedure Note [facility], Unknown Provider - 09/15/2020 EXAMINATION [...] of Radiology Appropriateness Criteria for Breast Cancer Screening(https://acsearch.acr.org/docs/02163/Narrative/) patient may benefit fromtomosynthesis on future mammography and supplemental imaging with automated breast ultrasound(ABUS) or breast MRI depending on risk factors. Automated Breast Ultrasound (ABUS) is available at [facility]. To schedule a patient, you can either enter anABUS order into [facility] (type ABUS), call [facility] at [phone], or fax an external order to [phone]. Breast MRI is available at [facility] ([facility], [facility], [facility]). To schedule, enter a breast MRIorder into [facility] (MRI Breast Bilateral W WO contrast and 3DCAD), call [phone] or [phone], orfax [phone]. us Vandana Epps MD IMAGING[facility] Final Result * CBC INCLUDES DIFFERENTIAL [...] PM EST 10/23/2019 2:41 PM EST Narrative [facility] - 10/23/2019 3:06 PM EST Patient's primary care provider is: ??N/A Testing performed at: [facility], [address] [place] [address], [address], Rest Room Maid: Seth Gutierrez MD us Vandana Epps MD LAB SAME DAY RESULT Final Resu lt [address] [address] DIRECTOR Seth Gutierrez MD * THYROID STIMULATING HORMONE (TSH) WITH FREE T4 REFLEX, SERUM (10/23/2019 2:41 PM EST) Only the most recent of3 resultswithin the time period is included. TSH (Thyrotropin) 2.41 0.40 - 4.50 uIU/ml [facility] 10/23/2019 2:41 PM EST 10/23/2019 2:41 PM EST Narrative [facility] - 10/23/2019 5:01 PM EST Patient's primary care provider is: ??N/A Testing performed at: [facility], [address] [place] [address], [address], Rest Room Maid: Seth Gutierrez MD Vandana Epps MD LABORATORY Final Result [address] [address] DIRECTOR Seth Gutierrez MD * (ABNORMAL) LIPID PANEL WITH REFLEX TO DIRECT LDL (10/23/2019 2:41 PM EST) Only the most recent of4 resultswithin the time period is included. Cholesterol 165 <200 mg/dL [facility] Triglyceride 137 <150 mg/dL [facility] HDL Cholesterol 40(L) >40 mg/dL [facility] Comment: NCEP GUIDELINES Desirable >60 mg/dL Borderline 40-59 mg/dL ?? Undesirable <40 mg/dL LDL Cholesterol 98 <130 mg/dL [facility] CHOL/HDL Ratio 4 0 - 5 [facility] 10/23/2019 2:41 PM EST 10/23/2019 2:41 PM EST Narrative [facility] - 10/23/2019 5:01 PM EST Patient's primary care provider is: ??N/A Testing performed at: [facility], [address] [place] [address], [address], Rest Room Maid: Seth Gutierrez MD Vandana Epps MD LABORATORY Final Result [address] [address] DIRECTOR Seth Gutierrez MD * COMPREHENSIVE METABOLIC [...] GROUP Comment:If the patient is Af rican [place], please multiply result by 1.210 10/23/2019 2:41 PM EST 10/23/2019 2:41 PM EST Narrative [facility] - 10/23/2019 5:01 PM EST Patient's primary care provider is: ??N/A Testing performed at: [facility], [address] [place] [address], [address], Rest Room Maid: Seth Gutierrez MD Vandana Epps MD LABORATORY Final Result [facility] [address] [place] [address] DIRECTOR Seth Gutierrez MD * (ABNORMAL) PULMONARY FUNCTION TEST (10/18/2019 12:00 AM EST) [facility] Pulmonary Function Test Report Test Interpretation ? [...] ?81 (N) ?109 ? FET ?2.12 ? [id number] ? 2.50 ?1.04 ?3.95 ?1.31 ?53 ? [...] SYSTEM FVC - Mean Predicted 2.73 L [facility] FVC - Upper Limit Predicted 3.59 L [facility] FVC - % Predicted Pre-Bronchodilato r 66 % [facility] FEV0.5 - Pre-Bronchodilato r 1.10 0.85 - 2.57 L [facility] FEV0.5 - Lower Limit Predicted 0.85 L [facility] FEV0.5 - Mean Predicted 1.71 L [facility] FEV0.5 - Upper Limit Predicted 2.57 L [facility] FEV0.5 - % Predicted Pre-Bronchodilato r 65 % [facility] FEV1 - Pre-Bronchodilato r 1.46 1.25 - 2.80 L [facility] FEV1 - Lower Limit Predicted 1.25 L [facility] FEV1 - Mean Predicted 2.03 L [facility] FEV1 - Upper Limit Predicted 2.80 L [facility] FEV1 - % Predicted Pre-Bronchodilato r 72 % [facility] FEV1/FVC - Pre-Bronchodilato r 81 63- % [facility] FEV1/FVC - Lower Limit Predicted 63 % [facility] FEV1/FVC - Mean Predicted 75 % [facility] FEV1/FVC - % Predicted Pre-Bronchodilato r 109 % [facility] [id number] - Pre-Bronchodilato r 1.31 1.04 - 3.95 L/s [facility] IDO75-94 - Lower Limit Predicted 1.04 L/s [facility] HEO39-36 - Mean Predicted 2.50 L/s [facility] MQZ40-40 - Upper Limit Predicted 3.95 L/s [facility] RQU38-17 - % Predicted Pre-Bronchodilato r 53 % [facility] FEF25 - Pre-Bronchodilato r 3.09 2.31 - 7.75 L/s [facility] FEF25 - Lower Limit Predicted 2.31 L/s [facility] FEF25 - Mean Predicted 5.03 L/s [facility] FEF25 - Upper Limit Predicted 7.75 L/s [facility] FEF25 - % Predicted Pre-Bronchodilato r 61 % [facility] FEF50 - Pre-Bronchodilato r 1.42 0.28 - 3.49 L/s [facility] FEF50 - Lower Limit Predicted 0.28 L/s [facility] FEF50 - Mean Predicted 1.88 L/s [facility] FEF50 - Upper Limit Predicted 3.49 L/s [facility] FEF50 - % Predicted Pre-Bronchodilato r 76 % [facility] FEF75 - Pre-Bronchodilato r 0.70 0.08 - 2.22 L/s [facility] FEF75 - Lower Limit Predicted 0.08 L/s [facility] FEF75 - Mean Predicted 1.15 L/s [facility] FEF75 - Upper Limit Predicted 2.22 L/s [facility] FEF75 - % Predicted Pre-Bronchodilato r 61 % [facility] PEFR - Pre-Bronchodilato r 3.99 2.48 - 8.19 L/s [facility] PEFR - Lower Limit Predicted 2.48 L/s [facility] PEFR - Mean Predicted 5.34 L/s [facility] PEFR - Upper Limit Predicted 8.19 L/s [facility] PEFR - % Predicted Pre-Bronchodilato r 75 % [facility] FEF50/FIF50 - Pre-Bronchodilato r 0.74 [facility] FET - Pre-Bronchodilato r 2.12 s [facility] FIVC - Pre-Bronchodilato r 1.40 1.88 - 3.59 L [facility] FIVC - Lower Limit Predicted 1.88 L [facility] FIVC - Mean Predicted 2.73 L [facility] SYSTEM FIVC - Upper Limit Predicted 3.59 L [facility] SPIROMET[facility] SYSTEM FIVC - % Predicted Pre-Bronchodilato r 51 % COMPAS SPIROMETRY SYSTEM PIFR - Pre-Bronchodilato r 1.92 L/s [facility] SYSTEM PIFR - Mean Predicted 3.56 L/s [facility]IR[facility] SYSTEM PIFR - % Predicted Pre-Bronchodilato r 54 % [employer] SPIROMETRY SYSTEM Pulmonary Function Test Interpretation Office [...] NOT DETECTED STREP GRP A NOT DETECTED [facility] 06/13/2019 2:00 PM EDT 06/13/2019 2:00 PM EDT Narrative [facility] - 06/13/2019 2:39 PM EDT Patient's primary care provider is: ??N/A Lab results sent to critical lab pool 06/13/2019 at 2:38 PM by [employer] DataSHAKILA Testing performed at: [facility], [address] [place] [address], [address], Rest Room Maid: Seth Gutierrez MD Vandana Epps MD LAB SAME DAY RESULT Final Resu lt [address] [address] DIRECTOR Seth Gutierrez MD * XRAY SPINE, [...] is not present Confirmed by Batsheva Tamez ([id number]), order editor RIKY LEWIS ([id number]) on 10/24/2018 8:02:37 AM MUSE EKG SYSTEM [...] Polypectomy: - Tubular adenoma at ??9:24 AM [facility] LAB CLINICAL HISTORY Pre-op diagnosis: same [facility] GROSS DESCRIPTION One specimen is received in formalin labeled with patient name, MRN, and descending polyp . ??It consists of one box soft tissue fragment measuring 0.5 cm in greatest dimension. ??Specimen is entirely submitted in 1A [facility] EMBEDDED IMAGES [facility] RESULTING AGENCY Case was signed out at [facility], Department of Pathology, Biotech 3 CLIA [id number] [facility] REPORT HEADER Surgical Pathology Report ? Case: [id number] ? Authorizing Provider: ??Johnny Potter MD ?Collected: ? 07/18/2018 1231 ? Ordering Location: ? [facility]- ?Received: ?07/18/2018 1445 ? [facility] ? Preoperative Care Unit ? Pathologist: ? Willian Lozano MD ? Specimen: ?Large Intestine, Descending Colon, descending colon polyp, cold snare ? [facility] 07/18/2018 12:3 1 PM EDT Narrative [facility] - 07/19/2018 9:24 AM EDT Pre-op diagnosis: same us Johnny Potter MD PATHOLOGY Final Resul t [facility] [employer] [address] [place] [address] * COLONOSCOPY (07/18/2018 12:04 PM EDT) Narrative Procedure Note Johnny Potter MD - 07/18/2018 12:38 PM EDT Procedures signed by Johnny Potter MD at 07/18/2018 12:38 PM Author: Johnny Potter MD Service: (none) Author Type: Physician Filed: 07/18/2018 12:38 PM Date of Service: 07/18/2018 12:04 PM Status:Signed Baling Machine Tender: Johnny Potter MD (Physician) Procedure Orders: 1. COLONOSCOPY [[id number]] ordered by Johnny Potter MD at Gastroenterology Patient Name: Magda Chesterez Procedure Date: 07/18/2018 12:04 PM Date of : 1965 Admit Type: Outpatient Age: 52 Room: [place] [address] Gender: Female Note Status: Finalized Attending MD: [...] oxygen saturations were monitored continuously. The [id number] colonoscope was introduced through the anus andadvanced [...] - Patient has a contact [facility]. The signs and symptoms of potential [...] PM EST) Treponema pallidum Ab NEGATIVE NEGATIVE [facility] Comment: No antibodies to T. pallidum (the agent causing syphilis) were detected in the specimen. This result, however, does not exclude very recent T. pallidum infection; testing of a second specimen, collected 2-4 weeks after this specimen, is recommended if the index of suspicion for recent infection is high. 10/12/2017 1:07 PM EST 10/12/2017 7:10 PM EST Narrative Resulting Agency Comment [id number] us Vandana Epps MD LABORATORY Final Result [facility] [address] [place] [address] * HEPATITIS B SURFACE ANTIGEN (10/12/2017 1:07 PM EST) Hepatitis B virus surface Ag NON-REACTI VE NON-REACT ALEXIS [facility] 10/12/2017 1:07 PM EST 10/12/2017 7:10 PM EST Narrative Resulting Agency Comment [id number] Vandana Epps MD LABORATORY Final Result Performing Organization Address [facility] Co de Phone Number [facility] [address] [place] [address] * HEPATITIS C AB WITH REFLEX TO RNA PCR, SERUM (10/12/2017 1:07 PM EST) Hepatitis C virus Ab NON-REACTI VE NON-REACT ALEXIS [facility] Hepatitis C virus Ab Signal/Cutoff 0.02 <1.00 [facility] 10/12/2017 1:07 PM EST 10/12/2017 7:10 PM EST Narrative Resulting Agency Comment [id number] Vandana Epps MD LABORATORY Final Result Performing Organization Address [facility] Co de Phone Number [facility] [address] [place] [address] * CHLAMYDIA TRACHOMATIS/N. GONORRHOEAE (GC) RNA, TMA (URINE) (10/10/2017 4:30 PM EST) Pathologist [facility] Chlamydia trachomatis rRNA NOT DETECTED NOT DETECTED [facility] Neisseria Gonorrhoeae rRNA NOT DETECTED NOT DETECTED [facility] COMMENT SEE NOTE [facility] Comment: This test was performed using the APTIMA COMBO2 Assay ([employer] The analytical performance characteristics of this assay, when used to test SurePath specimens have been determined by [employer] [facility]. 10/10/2017 4:30 PM EST 10/10/2017 10:00 PM EST Narrative Resulting Agency Comment [id number] Diane Blanton MD LABORATORY Final R esult Performing Organization Address City/[facility] Co de Phone Number [facility] [address] [place] [address] * ENT OTORHINOLARYNGOLOGICAL TEST/PROCEDURE, UNSPECIFIED (09/08/2017) Unknown Provider PROCEDURES Final Result * MAMMOGRAPHY-BILATERAL (09/08/2017) Only the most recent of4 resultswithin the time period is included. 09/08/2017 Abdi Solo MD GENERAL IMAGING- OTHER Final R esult * ERYTHROCYTE SEDIMENTATION RATE (ESR), WESTERGREN (06/14/2017 11:32 AM EDT) Sedimentation Rate [place] (ESR) 17 0 - 20 mm/hr [facility] 06/14/2017 11:3 2 AM EDT 06/14/2017 11:32 AM EDT Narrative [facility] - 06/14/2017 1:54 PM EDT Patient's primary care provider is: ??N/A Testing performed at: [facility], [address] [place] [address], [address], Rest Room Maid: Vikas Cyr M.D. Abdi Solo MD LAB SAME DAY RESULT Final Resu lt Performing Organization Address [facility]/ZIP Co de Phone Number [address] [address] DIRECTOR VIKAS CYR M.D. * (ABNORMAL) RHEUMATOID FACTOR, SERUM (06/14/2017 11:29 AM EDT) Rheumatoid Factor (Quant) 26(H) <14 IU/mL [facility] 06/14/2017 11:2 9 AM EDT 06/14/2017 8:03 PM EDT Narrative Resulting Agency Comment [id number] Abdi Solo MD LABORATORY Final Result [facility] [address] [place] [address] * C-REACTIVE PROTEIN (CRP) - INFLAMMATION (06/14/2017 11:29 AM EDT) Pathologist [facility] C reactive protein <0.10 <0.80 mg/dL [facility] Comment: Please be advised that patients taking Carboxypenicillins may exhibit falsely decreased C-Reactive Protein levels due to an analytical interference in this assay. 06/14/2017 11:2 9 AM EDT 06/14/2017 8:03 PM EDT Narrative Resulting Agency Comment [id number] us Abdi Solo MD LABORATORY Final Result Performing Organization Address [facility] de Phone Number [facility] [address] [place] [address] * NICHO SCREEN IFA W/REFLEX TO TITER/PATTERN IFA (06/14/2017 11:29 AM EDT) [facility] NICHO IFA NEGATIVE NEGATIVE [facility] Comment: NICHO IFA is a first line screen for detecting the presence of up to approximately 150 autoantibodies in various autoimmune diseases. A negative NICHO IFA result suggests NICHO-associated autoimmune diseases are not present at this time. Visit Physician FAQs for interpretation of all antibodies in the [place], prevalence, and association with diseases at http://education.[employer] faq/SEA152 06/14/2017 11:2 9 AM EDT 06/14/2017 8:03 PM EDT Narrative Resulting Agency Comment [id number] us Abdi Solo MD LABORATORY Final Result Performing Organization Address [facility] de Phone Number [facility] [address] [place] [address] * CYCLIC CITRULLINATEDPEPTIDE CCP AB IGG (06/14/2017 11:29 AM EDT) Pathologist [facility] CCP Ab, IgG <16 UNITS [facility] Comment: Reference Range Negative: ?<20 Weak Positive: ? 20-39 Moderate Positive: ?? 40-59 Strong Positive: ? >59 06/14/2017 11:2 9 AM EDT 06/14/2017 8:03 PM EDT Narrative Resulting Agency Comment [id number] Abdi Solo MD LABORATORY Final Result [facility] [address] [place] [address] * STREP THROAT (GROUP A) RAPID DETECTION - STATION (04/18/2017) STREP GROUP A, RAPID (THROAT) negative 04/18/2017 Karen Luciano ELEMENTARY SCHOOL TEACHER'S AIDE STATION LAB Final Result * US TRANSVAGINAL (FOR COLD WORKING INSPECTOR DEPT USE ONLY)FC (02/24/2017 11:29 AM EDT) Anatomical Region Laterality Modality Ultrasound Impressions 03/01/2017 12:28 PM EDT : results given and discussed at time of appt Narrative 03/01/2017 12:28 PM EDT Reason for Ultrasound: Menstrual Problem Method: transvaginal Uterus Measurements: 7.6x4.1x3.3cm smooth contour: ??yes Endometrial stripe measurement: 2.0mm homogeneous Rt OV not seen Lt OV not seen Cul de sac: no free fluid Certified Diabetes Educator Comments: Uterus anteverted, homogeneous Ovaries not seen, no adnexal masses seen No free fluid in cds IMPRESSION: Normal but limitted ultrasound Cintia Gómez ELEMENTARY SCHOOL TEACHER'S AIDE IMG US OBGYN ORDERABLES Mary Ann l [...] none given [facility] Comment:{CLINICAL INFORMATIO N: {[id number]) Date last menstrual period 09/30/16 [facility] Comment:{LMP: {[id number]) Date of previous PAP smear NONE GIVEN [facility] Comment:{PREV. PAP: {[id number]) Date of previous biopsy NONE GIVEN [facility] Comment:{PREV. BX: {[id number]) Specimen source (Cvx/Vag) Cervix [facility] Comment:{SOURCE: {[id number]) Statement of Adequacy (Cvx/Vag) Satisfactory for evaluation. Endocervical/rosario sformation zone component absent. [facility] Comment:{STATEMENT OF ADEQUA CY: {[id number]) Cytology, Pap Smear Negative for intraepithelial lesion or malignancy. [facility] Comment:{INTERPRETATION/RESU LT: {[id number]) Cytology study comment (Cvx/Vag) This Pap test has been evaluated with computer assisted technology. [facility] Comment:{COMMENT: {[id number]) Field Care Manager (Cvx/Vag) MXD, CT (ASCP) CT screening location: [place] [address] [facility] Comment:{FREIGHT BREAKER: { [id number]) HPV MRNA E6/E7 Not Detected Not Detected [facility] Comment: {HPV mRNA E6/E7 {[id number]) This test was performed using the APTIMA HPV Assay ([employer] This assay detects E6/E7 viral messenger RNA (mRNA) from 14 high-risk HPV types (16,18,31,33,35,39,45,51,52,56,58,59,66,68). 10/06/2016 4:27 PM EST 10/07/2016 2:45 AM EST Narrative Resulting Agency Comment [id number] [facility] ELEMENTARY SCHOOL TEACHER'S AIDE PATHOLOGY-INTERFACED Final R esult [facility] [address] [place] [address] * VITAMIN D, 25-HYDROXY, TOTAL, IMMUNOASSAY (08/19/2016 2:08 PM EDT) VIT D, 25-OH, TOTAL 52 >29 ng/mL [facility] Comment: Vitamin D Status ??25-OH Vitamin D: Deficiency: ? <20 ng/mL Insufficiency: ? 20-29 ng/mL Optimal: ?> or = 30 ng/mL 08/19/2016 2:08 PM EDT 08/19/2016 2:08 PM EDT Narrative [facility] - 08/19/2016 5:09 PM EDT not fasting Patient's primary care provider is: ??N/A Testing performed at: [facility], [address] [place] [address], [address], Rest Room Maid: Vikas Cyr M.D. Abdi Solo MD LABORATORY Final Result Performing Organization Address City/State/[facility] de Phone Number [address] [address] DIRECTOR VIKAS CYR M.D. * ENT OTORHINOLARYNGOLOGICAL TEST/PROCEDURE, UNSPECIFIED (07/26/2016) Narrative Transcriptions Provider, Unknown - 08/13/2016 12:00 AM EDT us Unknown Provider PROCEDURES Final Result * FOOT 3 VIEW - LEFT (03/05/2016 3:35 PM EDT) Only the most recent of3 resultswithin the time period is included. RADIOLOGY REPORT [facility] Department of Radiology [address] [place] [address], [address] Name: MANNY STEIN GALLOLY : 63 Date of Service: 03/05/16 1136 Acct Number: [id number] Order Number: ??[id number] ?Location: [facility] Report Number: [id number] ?Service: REG REF/ Requesting Physician: Xavi Ojeda (THU) Category: ORTHOPEDIC RADIOLOGY ??[facility] Exam: FOOT 3 VIEWS ?? Left Signs/Symptoms: [...] the left Date/Time of Dictation: 03/05/16 1538 Lamp Tester And Inspector (if applicable): Approved By Attending Radiologist: Jose Craven 03/05/16 1538 [facility] Department of Radiology [address] [place] [address], [address] ? [phone] ? [facility] Anatomical Region Laterality Modality Other 03/05/2016 3:35 PM EDT Narrative 03/05/2016 3:39 PM EDT Reason for Study/History: Department of Radiology TEST(S) PROCESSED BY [facility] XRAY us Xavi Ojeda PA IMAGING-[facility] Final Result * UNSPECIFIED MAJOR PROCEDURE (11/10/2015) Narrative Transcriptions Mack Mccarthy - 11/13/2015 12:00 AM EST us Mack Mccarthy PROCEDURES Final Result * HELICOBACTER PYLORI UREA BREATH TEST (UBIT-(R)) (10/28/2015 8:57 AM EST) Urea Breath Test, Infra-Red (Ubit) NOT DETECTED NOT DETECTED [facility] Comment: {HELICOBACTER PYLORI, UREA BREATH TEST {[id number]) Antimicrobials, proton pump inhibitors, and bismuth preparations are known to suppress H. pylori, and ingestion of these prior to H. pylori diagnostic testing may lead to false negative results. If clinically indicated, the test may be repeated on a new specimen obtained two weeks after discontinuing treatment. 10/28/2015 8:57 AM EST 10/28/2015 2:27 PM EST Narrative Resulting Agency Comment [id number] us John Oviedo MD LABORATORY Final Resu lt [facility] [address] [place] [address] * CT - THORAX W/O CONTRAST THEN [...] the distal third metatarsal us Karen Luciano ELEMENTARY SCHOOL TEACHER'S AIDE IMG XRAY NO CONTRAST ORDERABLES Final Result * DERMATOPHAGOIDESPTERONYSSINUS (D1) IGE (09/01/2015 2:10 PM EDT) Only the most recent of2 resultswithin the time period is included. Dermatophagoidespteronyssinu s (D1) IgE <0.35 kU/L [facility] Comment:{DERMATOPHAGOIDES PT ERONYSSINUS (D1) IGE {[id number]) Dermatophagoides pteronyssin us (D1) Class 0 [facility] Comment:{CLASS {[id number]) 09/01/2015 2:10 PM EDT 09/01/2015 7:51 PM EDT Narrative Resulting Agency Comment [id number] John Oviedo MD LABORATORY Final Resu lt Performing Organization Address [facility] de Phone Number [facility] [address] [place] [address] * DERMATOPHAGOIDES FARINAE (D2) IGE (09/01/2015 2:10 PM EDT) Only the most recent of2 resultswithin the time period is included. Dermatophagoides Farinae(D2) IgE <0.35 kU/L [facility] Comment:{DERMATOPHAGOIDES FA RINAE (D2) IGE {[id number]) Dermatophagoides Farinae(D2) Class 0 [facility] Comment:{CLASS {[id number]) 09/01/2015 2:10 PM EDT 09/01/2015 7:51 PM EDT Narrative Resulting Agency Comment [id number] John Oviedo MD LABORATORY Final Resu lt Performing Organization Address [facility] de Phone Number [facility] [address] [place] [address] * (ABNORMAL) HELICOBACTER PYLORI IGGANTIBODY (08/13/2015 2:50 PM EDT) Helicobacter pylori Ab.IgG POSITIVE (A) NEGATIVE [facility] Comment: {HELICOBACTER PYLORI ANTIBODY (IGG) {[id number]) Measurement of antibodies to H. pylori is not recommended for the diagnosis of active infection. The [place] [employer] and the [place] [employer] recommend either the urea breath test or the fecal antigen test for diagnosis and confirmation of eradication in cases of suspected or proven H. pylori infection. Effective September 15, 2015 Helicobacter(H) pylori antibody testing ??will no longer be offered at [facility]. We are pleased to offer ACG and AGA recommended testing for ACTIVE infection with either H. pylori Stool Antigen (test code 44223[X]) or H. pylori Urea Breath Test (54179[X] for adult patients and 27951 for pediatric patients). For more information on testing for ACTIVE H. pylori infection, please see http://education.At [employer] Pool.[employer]/insights/61 08/13/2015 2:50 PM EDT 08/14/2015 12:47 AM EDT Narrative Resulting Agency Comment [id number] us John Oviedo MD LABORATORY Final Resu lt [facility] [address] [place] [address] * ALLERGEN (IGE), CONV. RAST-EDWINA CAMPUZANO (672) (08/13/2015 2:50 PM EDT) [facility] Edwina Campuzano IgE <0.10 <0.35 kU/L [facility] Comment:{ALLERGEN SPECIFIC I GE EDWINA SHGBRK(C.OVATA) {[id number]) Edwina Campuzano Class 0 [facility] Comment: {CLASS {[id number]) This conventional RAST uses allergen-coated discs from several suppliers and an isotope-labeled anti-IgE. IgE Conc (kU/L) ? Class ?Interpretation <0.10 ? 0 ?Below Detection 0.10-0.34 ? 0/1 ?Equivocal/Borderline 0.35-0.69 ? 1 ?Low Positive 0.70-3.49 ? 2 ?Moderate Positive 3.50-17.49 ?3 ?Positive >17.49 ?4 ?Strong Positive *This test was developed and its performance characteristics determined by [facility]. It has not been cleared or approved by the U.S. Food and Drug Administration. 08/13/2015 2:50 PM EDT 08/14/2015 12:47 AM EDT Narrative Resulting Agency Comment [id number] us John Oviedo MD LABORATORY Final Resu lt Performing Organization Address [facility] de Phone Number [facility] [address] [place] [address] * SHEEP SORREL (W18) IGE (08/13/2015 2:50 PM EDT) Sheep [place] IgE <0.35 kU/L [facility] Comment:{SHEEP SORREL (W18) IGE {[id number]) Sheep [place] (W18) Class 0 [facility] Comment:{CLASS {[id number]) 08/13/2015 2:50 PM EDT 08/14/2015 12:47 AM EDT Narrative Resulting Agency Comment [id number] us John Oviedo MD LABORATORY Final Resu lt Performing Organization Address [facility] de Phone Number [facility] [address] [place] [id number] * FLETCHER'S QUARTER (GOOSE FOOT) (W10) IGE (08/13/2015 2:50 PM EDT) [place] ([place]) (W10) IgE <0.35 kU/L [facility] Comment:{FLETCHER'S QUARTERS (GO OSE FOOT) (W10) IGE {[id number]) [place] ([place]) (W10) Class 0 [facility] Comment:{CLASS {[id number]) 08/13/2015 2:50 PM EDT 08/14/2015 12:47 AM EDT Narrative Resulting Agency Comment [id number] us John Oviedo MD LABORATORY Final Resu lt Performing Organization Address [facility] de Phone Number [facility] [address] [place] [address] * ALLISON GRASS (G10) IGE (08/13/2015 2:50 PM EDT) [place] (G10) IgE <0.35 kU/L [facility] Comment:{ALLISON GRASS (G10) IGE {[id number]) [place] (G10) Class 0 [facility] Comment:{CLASS {[id number]) 08/13/2015 2:50 PM EDT 08/14/2015 12:47 AM EDT Narrative Resulting Agency Comment [id number] us John Oviedo MD LABORATORY Final Resu lt Performing Organization Address [facility] de Phone Number [facility] [address] [place] [address] * GIANT RAGWEED (TALL) (W3)IGE (08/13/2015 2:50 PM EDT) Ragweed Giant IgE <0.35 kU/L [facility] Comment:{GIANT RAGWEED (TALL ) (W3) IGE {[id number]) Giant Ragweed (Tall) (W3) Class 0 [facility] Comment:{CLASS {[id number]) 08/13/2015 2:50 PM EDT 08/14/2015 12:47 AM EDT Narrative Resulting Agency Comment [id number] us John Oviedo MD LABORATORY Final Resu lt Performing Organization Address [facility]/ZIP Co de Phone Number [facility] [address] [place] [address] * ELM (T8) IGE (08/13/2015 2:50 PM EDT) Elm (T8) IgE <0.35 kU/L [facility] Comment:{ELM (T8) IGE {[id number]) Elm (T8) Class 0 [facility] Comment:{CLASS {[id number]) 08/13/2015 2:50 PM EDT 08/14/2015 12:47 AM EDT Narrative Resulting Agency Comment [id number] us John Oviedo MD LABORATORY Final Resu lt Performing Organization Address [facility] de Phone Number [facility] [address] [place] [address] * DOG DANDER (E5) IGE (08/13/2015 2:50 PM EDT) Dog Dander (E5) IgE <0.35 kU/L [facility] Comment:{DOG DANDER (E5) IGE {[id number]) Dog Dander (E5) Class 0 [facility] Comment:{CLASS {[id number]) 08/13/2015 2:50 PM EDT 08/14/2015 12:47 AM EDT Narrative Resulting Agency Comment [id number] us John Oviedo MD LABORATORY Final Resu lt Performing Organization Address [facility] Co de Phone Number [facility] [address] [place] [address] * COMMON RAGWEED (SHORT) (W1) IGE (08/13/2015 2:50 PM EDT) Common Ragweed (Short)(W1) IgE <0.35 kU/L [facility] Comment:{COMMON RAGWEED (AJ RT) (W1) IGE {[id number]) Common Ragweed (Short)(W1) Class 0 [facility] Comment:{CLASS {[id number]) 08/13/2015 2:50 PM EDT 08/14/2015 12:47 AM EDT Narrative Resulting Agency Comment [id number] us John Oviedo MD LABORATORY Final Resu lt Performing Organization Address [facility] Co de Phone Number [facility] [address] [place] [address] * COCKROACH (I6) IGE (08/13/2015 2:50 PM EDT) Cockroach (I6) IgE <0.35 kU/L [facility] Comment:{COCKROACH (I6) IGE {[id number]) Cockroach (I6) Class 0 [facility] Comment:{CLASS {[id number]) 08/13/2015 2:50 PM EDT 08/14/2015 12:47 AM EDT Narrative Resulting Agency Comment [id number] us John Oviedo MD LABORATORY Final Resu lt Performing Organization Address [facility] Co de Phone Number [facility] [address] [place] [address] * CLADOSPORIUM HERBARUM (M2) IGE (08/13/2015 2:50 PM EDT) Cladosporium Herbarum (M2) IgE <0.35 kU/L [facility] Comment:{CLADOSPORIUM HERBAR UM (M2) IGE {[id number]) Cladosporium Herbarum(M2) Class 0 [facility] Comment:{CLASS {[id number]) 08/13/2015 2:50 PM EDT 08/14/2015 12:47 AM EDT Narrative Resulting Agency Comment [id number] us John Oviedo MD LABORATORY Final Resu lt Performing Organization Address [facility] Co de Phone Number [facility] [address] [place] [address] * BIRCH (T3) IGE (08/13/2015 2:50 PM EDT) Birch (T3) IgE <0.35 kU/L [facility] Comment:{BIRCH (T3) IGE {[id number]) Birch (T3) Class 0 [facility] Comment:{CLASS {[id number]) 08/13/2015 2:50 PM EDT 08/14/2015 12:47 AM EDT Narrative Resulting Agency Comment [id number] us John Oivedo MD LABORATORY Final Resu lt Performing Organization Address [facility] de Phone Number [facility] [address] [place] [address] * BERMUDA GRASS (G2) IGE (08/13/2015 2:50 PM EDT) [place] Grass (G2) IgE <0.35 kU/L [facility] Comment:{BERMUDA GRASS (G2) IGE {[id number]) [place] Grass (G2) Class 0 [facility] [facility]AGNOSTICS Comment:{CLASS {[id number]) 08/13/2015 2:50 PM EDT 08/14/2015 12:47 AM EDT Narrative Resulting Agency Comment [id number] us John Oviedo MD LABORATORY Final Resu lt Performing Organization Address [facility] de Phone Number [facility] [address] [place] [address] * ASPERGILLUS FUMIGATUS(M3) IGE (08/13/2015 2:50 PM EDT) Aspergillus Fumigatus (M3) IgE <0.35 kU/L [facility] Comment:{ASPERGILLUS FUMIGAT US (M3) IGE {[id number]) Aspergillus Fumigatus(M3) Class 0 [facility] Comment:{CLASS {[id number]) 08/13/2015 2:50 PM EDT 08/14/2015 12:47 AM EDT Narrative Resulting Agency Comment [id number] us John Oviedo MD LABORATORY Final Resu lt Performing Organization Address [facility] Co de Phone Number [facility] [address] [place] [address] * ALTERNARIA ALTERNATA (M6)IGE (08/13/2015 2:50 PM EDT) Alternaria Alternata (M6) IgE <0.35 kU/L [facility] Comment:{ALTERNARIA ALTERNAT A (M6) IGE {[id number]) Alternaria Alternata (M6) Class 0 [facility] Comment:{CLASS {[id number]) 08/13/2015 2:50 PM EDT 08/14/2015 12:47 AM EDT Narrative Resulting Agency Comment [id number] us John Oviedo MD LABORATORY Final Resu lt Performing Organization Address [facility] de Phone Number [facility] [address] [place] [address] * MAPLE ([place]) (T1) IGE (08/13/2015 2:50 PM EDT) [place] ([place]) (T1) IgE <0.35 kU/L [facility] Comment:{MAPLE ([place]) ( T1) IGE {[id number]) [place] ([place]) (T1) Class 0 [facility] Comment:{CLASS {[id number]) 08/13/2015 2:50 PM EDT 08/14/2015 12:47 AM EDT Narrative Resulting Agency Comment [id number] John Oviedo MD LABORATORY Final Resu lt Performing Organization Address [facility] Co de Phone Number [facility] [address] [place] [address] * OAK (T7) IGE (08/13/2015 2:50 PM EDT) [place] (T7) IgE <0.35 kU/L [facility] Comment:{OAK (T7) IGE {[id number]) [place] (T7) Class 0 [facility] Comment:{CLASS {[id number]) 08/13/2015 2:50 PM EDT 08/14/2015 12:47 AM EDT Narrative Resulting Agency Comment [id number] us John Oviedo MD LABORATORY Final Resu lt Performing Organization Address [facility] Co de Phone Number [facility] [address] [place] [address] * [place] (T15) IGE (08/13/2015 2:50 PM EDT) [place] (T15) IgE <0.35 kU/L [facility] Comment:{[place] (T15) IGE {[id number]) [place] (T15) Class 0 [facility] Comment:{CLASS {[id number]) 08/13/2015 2:50 PM EDT 08/14/2015 12:47 AM EDT Narrative Resulting Agency Comment [id number] us John Oviedo MD LABORATORY Final Resu lt Performing Organization Address [facility] de Phone Number [facility] [address] [place] [address] * GAGE [place] (G6) IGE (08/13/2015 2:50 PM EDT) [place] (G6) IgE <0.35 kU/L [facility] Comment:{[place] (G6) IGE {[id number]) [place] (G6) Class 0 [facility] Comment:{CLASS {[id number]) 08/13/2015 2:50 PM EDT 08/14/2015 12:47 AM EDT Narrative Resulting Agency Comment [id number] us John Oviedo MD LABORATORY Final Resu lt Performing Organization Address [facility] Co de Phone Number [facility] [address] [place] [address] * CAT EPITHELIUM ANDDANDER (E1) IGE (08/13/2015 2:50 PM EDT) Cat Dander (E1) IgE <0.35 kU/L [facility] Comment:{CAT DANDER (E1) IGE {[id number]) Cat [place] (E1) Class 0 [facility] Comment:{CLASS {[id number]) 08/13/2015 2:50 PM EDT 08/14/2015 12:47 AM EDT Narrative Resulting Agency Comment [id number] us John Oviedo MD LABORATORY Final Resu lt Performing Organization Address City/[facility]/ZIP Co de Phone Number [facility] [address] [place] [address] * IGE, SERUM (08/13/2015 2:50 PM EDT) IgE 13 <GT=541 kU/L [facility] Comment:{IMMUNOGLOBULIN E {[id number]) 08/13/2015 2:50 PM EDT 08/14/2015 12:47 AM EDT Narrative Resulting Agency Comment [id number] us John Oviedo MD LABORATORY Final Resu lt Performing Organization Address [facility] Co de Phone Number [facility] [address] [place] [address] * (ABNORMAL) CULTURE, URINE, ROUTINE (06/26/2015 5:24 PM EDT) Taylor count (Urine) >50,000 CFU/ml [facility] Bacteria culture (Urine) Mixed Culture,Repeat if Clinically Indicated(A) No Growth [facility] 06/26/2015 5:24 PM EDT 06/26/2015 5:24 PM EDT Narrative [facility] - 06/28/2015 8:11 AM EDT Patient's primary care provider is: ??N/A Testing performed at: [facility], [address] [place] [address], [address], Rest Room Maid: Vikas Cyr M.D. us Diane Blanton MD LABORATORY Final R esult Performing Organization Address [facility]/ZIP Co de Phone Number [address] [address] DIRECTOR VIKAS CYR M.D. * URINALYSIS, COMPLETE [...] care provider is: ??N/A Testing performed at: [facility], [address] [place] [address], [place], [address], Rest Room Maid: Vikas Cyr M.D. Diane Blanton MD LAB SAME DAY RESULT Fin al Result Performing Organization Address [facility]/ZIP Co de Phone Number [address] [address] DIRECTOR VIKAS CYR M.D. * BV/VAGINITIS PANELDNA PROBE (06/26/2015 5:23 PM EDT) Trichomonas vaginalis rRNA (Genital) NOT DETECTED NOT DETECTED [facility] Comment:{TRICHOMONAS: {[id number]) Gardnerella vaginalis rRNA (Genital) NOT DETECTED NOT DETECTED [facility] Comment:{GARDNERELLA: {[id number]) Nelly sp rRNA (Vag) NOT DETECTED NOT DETECTED [facility] Comment:{NELLY: {[id number]) 06/26/2015 5:23 PM EDT 06/26/2015 11:16 PM EDT Narrative Resulting Agency Comment [id number] Diane Blanton MD LABORATORY Final R esult [facility] [address] [place] [address] * UNSPECIFIED MAJOR PROCEDURE (06/12/2015) Narrative Transcriptions [...] patellofemoral spurring consistent with osteoarthritis. Buffy Capps [employer] TEACHER'S AIDE IMG XRAY NO CONTRAST ORDERABLE S Final Result * TSH (04/10/2015 9:45 AM EDT) Only the most recent of2 resultswithin the time period is included. [facility] Thyroid Stimulating Hormone 3.93 0.40 - 4.50 uIU/ml 04/10/2015 1:10 PM EDT [facility] 04/10/2015 9:45 AM EDT 04/10/2015 9:45 AM EDT Narrative [facility] - 04/10/2015 12:00 AM EDT Patient's primary care provider is: ??Abdi Solo Abdi Solo MD LABORATORY Final Result Performing Organization Address [facility] Co de Phone Number [facility] * (ABNORMAL) SED RATE (04/10/2015 9:45 AM EDT) Only the most recent of2 resultswithin the time period is included. [facility] Erythrocyte Sedimentation Rate 22(H) 0 - 20 mm/hr 04/10/2015 1:42 PM EDT [facility] 04/10/2015 9:45 AM EDT 04/10/2015 9:45 AM EDT Narrative [facility] - 04/10/2015 12:00 AM EDT Patient's primary care provider is: ??Abdi Solo Abdi Solo MD LABORATORY Final Result Performing Organization Address City/[facility]/ZIP Co de Phone Number [facility] * T4, FREE (04/10/2015 9:45 AM EDT) Only the most recent of2 resultswithin the time period is included. Pathologist [facility] Free Thyroxine (Free T4) 1.2 0.8 - 1.8 ng/dL 04/12/2015 12:41 PM EDT [facility] 04/10/2015 9:45 AM EDT 04/10/2015 9:45 AM EDT [facility]OR[facility] - 04/12/2015 12:00 AM EDT Patient's primary care provider is: ??Abdi Solo Testing performed at: [facility], [address],[place], [address], Rest Room Maid: JAMES MARIO MD Abdi Solo MD LABORATORY Final Result Performing Organization Address [facility] de Phone Number [facility] * VITAMIN B12 (04/10/2015 9:45 AM EDT) [facility] Vitamin B12 412 200 - 1100 pg/mL 04/11/2015 11:45 AM EDT [facility] 04/10/2015 9:45 AM EDT 04/10/2015 9:45 AM EDT [facility] - 04/11/2015 12:00 AM EDT Patient's primary care provider is: ??Abdi Solo Testing performed at: [facility], [address],[place], [address], Rest Room Maid: JAMES MARIO MD Abdi Solo MD LABORATORY Final Result Performing Organization Address City/[facility] Co de Phone Number [facility] * (ABNORMAL) PROTEIN ELECTROPHORESIS, SERUM (04/10/2015 9:45 AM EDT) [facility] Protein Total (Serum) 7.5 6.1 - 8.1 g/dL 04/14/2015 10:10 AM EDT [facility] Albumin 4.2 3.5 - 4.7 g/dL 04/14/2015 10:10 AM EDT [facility] Alpha 1 Globulin 0.3 0.1 - 0.3 g/dL 04/14/2015 10:10 AM EDT [facility] Alpha 2 Globulin 0.6 0.5 - 1.0 g/dL 04/14/2015 10:10 AM EDT [facility] Beta Globulin 0.9 0.8 - 1.4 g/dL 04/14/2015 10:10 AM EDT [facility] Gamma Globulin 1.7(H) 0.6 - 1.6 g/dL 04/14/2015 10:10 AM EDT [facility] SPEP Interpretation SEE NOTE 04/14/2015 10:10 AM EDT [facility] Comment: Polyclonal increase in gamma globulins suggesting non-specific chronic inflammatory pattern. 04/10/2015 9:45 AM EDT 04/10/2015 9:45 AM EDT Narrative [facility] - 04/14/2015 12:00 AM EDT Patient's primary care provider is: ??Abdi Solo Testing performed at: [facility], [address] [place] [address],[place], [address], Rest Room Maid: JAMES MARIO MD Abdi Solo MD LABORATORY Final Result [facility] * C-REACTIVE PROTEIN QUANTITATIVE (04/10/2015 9:45 AM EDT) C-Reactive Protein 0.15 <0.80 mg/dL 04/12/2015 12:47 PM EDT [facility] Comment: Please be advised that patients taking Carboxypenicillins may exhibit falsely decreased C-Reactive Protein levels due to an analytical interference in this assay. 04/10/2015 9:45 AM EDT 04/10/2015 9:45 AM EDT Narrative [facility] - 04/12/2015 12:00 AM EDT Patient's primary care provider is: ??Abdi Solo Testing performed at: [facility], [address] [place] [address],[address], [place], [address], Rest Room Maid: JAMES MARIO MD Abdi Solo MD LABORATORY Final Result [facility] * VITAMIN D 25-HYDROXY TOTAL ONLY (04/10/2015 9:45 AM EDT) Only the most recent of4 resultswithin the time period is included. [facility] Vitamin D, 25 Hydroxy Total 40 30 - 100 ng/mL 04/12/2015 12:41 PM EDT [facility] Comment: Vitamin D Status ? 25-OH Vitamin D: Deficiency: ?<20 ng/mL Insufficiency: ? 20 - 29 ng/mL Optimal: ? > or = 30 ng/mL For 25-OH Vitamin D testing on patients on D2-supplementation and patients for whom quantitation of D2 and D3 fractions is required, the QuestAssureD(TM) 25-OH VIT D, (D2,D3), LC/MS/MS is recommended: order code 57663 (patients >2yrs). For more information on this test, go to: [email or web address] Effective March 31, the test order code 86346, used prior to March 31, for LC/MS/MS, will be transitioned to a carefully-selected immunoassay methodology. ??The new immunoassay has passed CDC standardization certification and provides high quality quantitative results that are tied back to standards from the NIST. For those patients for whom LC/MS/MS testing is appropriate, please utilize test code 36847. When LC/MS/MS is the chosen assay, utilize test code 05074 for patients > or = 3 years of age, patients who are on D2 supplementation, and patients for whom a separate D2 and D3 measurement is required. For patients <3 years of age, test code 09907 should be used. Important Note Regarding Custom Panels With 25-Hydroxyvitamin D: If you currently order vitamin D testing as part of a custom panel, the LC/MS/MS vitamin D test will be maintained in your panel after March 31, 2015. If you would like to replace the test in your panel with the new immunoassay, or have any questions regarding the transition of the 69702 test code, please contact your local [employer] distributor sales manager. 04/10/2015 9:45 AM EDT 04/10/2015 9:45 AM EDT Narrative [facility] - 04/12/2015 12:00 AM EDT Patient's primary care provider is: ??Abdi Solo Testing performed at: [facility], [address] [place] [address] [address] [facility],[address], [place], [address], Rest Room Maid: JAMES MARIO MD us Abdi Solo MD LABORATORY Final Result [facility] * PROTEIN ELECTROPHORESIS RANDOM URINE (04/10/2015 9:45 AM EDT) Creatinine (Urine) 59 20 - 320 mg/dL 04/14/2015 10:10 AM EDT [facility] Protein/Creatinine (24Hr Urine) 119 21 - 161 mg/g creat 04/14/2015 10:10 AM EDT [facility] Protein (Urine) 7 5 - 24 mg/dL 04/14/2015 10:10 AM EDT [facility] Microalbumin/Creat inine Ratio 100 % 04/14/2015 10:10 AM EDT [facility] Alpha 1 Globulin (24Hr Urine) 0 % 04/14/2015 10:10 AM EDT [facility] Alpha 2 Globulin (24Hr Urine) 0 % 04/14/2015 10:10 AM EDT [facility] Beta globulin/Protein.T otal (24Hr Urine) 0 % 04/14/2015 10:10 AM EDT [facility] Gamma Globulins, 24 Hr Urine 0 % 04/14/2015 10:10 AM EDT [facility] UPEP Interpretation SEE NOTE 04/14/2015 10:10 AM EDT [facility] Comment: Normal Pattern 04/10/2015 9:45 AM EDT 04/10/2015 9:45 AM EDT Narrative [facility] - 04/14/2015 12:00 AM EDT Patient's primary care provider is: ??Abdi Solo Testing performed at: [facility], [address] [place] [address] [address], [place], [address], Rest Room Maid: JAMES MARIO MD Abdi Solo MD LABORATORY Final Result [facility] * HEMOGRAM (CBC) W AUTO DIFF RFLX MAN DIFF (04/10/2015 9:45 AM EDT) Only the most recent of2 resultswithin the time period is included. Leukocytes 8.4 3.8 - 10.8 K/uL 04/10/2015 12:23 PM EDT [facility] Neutrophils # 6.2 3.3 - 6.3 K/uL 04/10/2015 12:23 PM EDT [facility] Granulocytes 0.03 0.00 - 0.07 K/uL 04/10/2015 12:23 PM EDT [facility] Lymphocytes # 1.4 0.9 - 3.9 K/uL 04/10/2015 12:23 PM EDT [facility] Monocytes # 0.7 0.2 - 1.0 K/uL 04/10/2015 12:23 PM EDT [facility] Eosinophils # 0.1 0.0 - 0.2 K/uL 04/10/2015 12:23 PM EDT [facility] Basophils # 0.0 0.0 - 0.2 K/uL 04/10/2015 12:23 PM EDT [facility] Neutrophils % 73.5 48.0 - 77.7 % 04/10/2015 12:23 PM EDT [facility] Granulocytes/100 leukocytes 0.40 0.00 - 0.90 % 04/10/2015 12:23 PM EDT [facility] Lymphocytes/100 leukocytes 16.6 10.0 - 38.0 % 04/10/2015 12:23 PM EDT [facility] Monocytes/100 Leukocytes 8.3 0.0 - 14.0 % 04/10/2015 12:23 PM EDT [facility] Eosinophils 1.0 0.0 - 5.0 % 04/10/2015 12:23 PM EDT [facility] Basophils 0.2 0.0 - 3.0 % 04/10/2015 12:23 PM EDT [facility] Erythrocytes 4.12 3.80 - 5.10 M/uL 04/10/2015 12:23 PM EDT [facility] Hemoglobin 12.4 11.7 - 15.5 g/dL 04/10/2015 12:23 PM EDT [facility] Hematocrit 37.0 35.0 - 45.0 % 04/10/2015 12:23 PM EDT [facility] Mean Corpuscular Volume 89.8 80.0 - 100.0 fl 04/10/2015 12:23 PM EDT [facility] Mean Corpuscular Hemoglobin 30.1 27.0 - 33.0 pg 04/10/2015 12:23 PM EDT [facility] Mean Corpuscular Hemoglobin Conc 33.5 32.0 - 36.0 g/dL 04/10/2015 12:23 PM EDT [facility] RDW 12.9 11.0 - 15.0 % 04/10/2015 12:23 PM EDT [facility] Platelets 247 140 - 400 K/uL 04/10/2015 12:23 PM EDT [facility] 04/10/2015 9:45 AM EDT 04/10/2015 9:45 AM EDT Narrative [facility] - 04/10/2015 12:00 AM EDT Patient's primary care provider is: ??Abdi Solo us Abdi Solo MD LABORATORY Final Result [facility] * COMPREHENSIVE METABOLIC PROFILE W/GFR ([facility]) (04/10/2015 9:45 AM EDT) Only the most recent of2 resultswithin the time period is included. Glucose 65 65 - 99 mg/dl 04/10/2015 1:10 PM EDT [facility] Urea Nitrogen Blood (BUN) 13 7 - 25 mg/dL 04/10/2015 1:10 PM EDT [facility] Creatinine 0.69 0.50 - 1.16 mg/dL 04/10/2015 1:10 PM EDT [facility] Sodium 137 136 - 145 mmo/L 04/10/2015 1:10 PM EDT [facility] Potassium 4.0 3.5 - 5.3 mmol/L 04/10/2015 1:10 PM EDT [facility] Chloride 100 98 - 107 mmo/L 04/10/2015 1:10 PM EDT [facility] Calcium 9.9 8.5 - 10.4 mg/dL 04/10/2015 1:10 PM EDT [facility] Protein Total (Serum) 7.8 6.0 - 8.3 g/dL 04/10/2015 1:10 PM EDT [facility] Albumin 4.5 3.5 - 5.2 g/dL 04/10/2015 1:10 PM EDT [facility] Globulin 3 2 - 4 G/DL 04/10/2015 1:10 PM EDT [facility] Bilirubin, Total 0.40 0.20 - 1.50 mg/dL 04/10/2015 1:10 PM EDT [facility] Alkaline Phosphatase 60 33 - 130 U/L 04/10/2015 1:10 PM EDT [facility] AST (SGOT) 18 <38 U/L 04/10/2015 1:10 PM EDT [facility] ALT (SGPT) 17 <47 U/L 04/10/2015 1:10 PM EDT [facility] Carbon Dioxide 28 23 - 33 mmol/L 04/10/2015 1:10 PM EDT [facility] Glomerular Filtration Rate,Est 96 >60 ml/min 04/10/2015 1:10 PM EDT [facility] Comment: For patients greater than 18 years of and and if the patient is , please multiply result by 1.210 04/10/2015 9:45 AM EDT 04/10/2015 9:45 AM EDT Narrative [facility] - 04/10/2015 12:00 AM EDT Patient's primary care provider is: ??Abdi Solo us Abdi Solo MD LABORATORY Final Result [facility] * COLONOSCOPY (01/15/2015 12:00 AM EST) ATTACHED DOCUMENT 01/15/2015 12:00 AM EST ATTACHED DOCUMENT 01/15/2015 12:00 AM EST 01/15/2015 01/15/2015 Narrative Transcriptions Abdi Solo MD - 05/23/2015 12:00 AM EDT Abdi Solo MD - 05/26/2015 12:00 AM EDT Abdi Solo MD PROCEDURES Final Result * (ABNORMAL) URINE CULTURE (09/11/2014 10:41 AM EDT) Taylor Count <50,000 0.00 - 0.00 CFU/ml 09/13/2014 7:56 AM EDT [facility] Urine Culture Mixed Culture,Repeat if Clinically Indicated(A) No Growth 09/13/2014 7:56 AM EDT [facility] 09/11/2014 10:4 1 AM EDT 09/11/2014 10:41 AM EDT Narrative [facility] - 09/13/2014 12:00 AM EDT non fasting Patient's primary care provider is: ??Abdi Solo Source: CLEAN CATCH URINE us Abdi Solo MD LABORATORY Final Result [facility] * (ABNORMAL) URINALYSIS W MICROSCOPIC (09/11/2014 10:41 AM EDT) Color (Urine) Yellow Yellow 09/11/2014 12:48 PM EDT [facility] Appearance (Urine) Clear Clear 09/11/2014 12:48 PM EDT [facility] PH (Urine) 8.0 5.0 - 8.0 09/11/2014 12:48 PM EDT [facility] Specific [place] (Urine) 1.020 1.005 - 1.030 09/11/2014 12:48 PM EDT [facility] Glucose (Urine) Negative Negative 4 12:48 PM EDT [facility] Bilirubin (Urine) Negative Negative 09/11/2014 12:48 PM EDT [facility] Ketones (Urine) Negative Negative 4 12:48 PM EDT [facility] Protein (Urine) Negative Negative 4 12:48 PM EDT [facility] Urobilinogen (Urine) 1.0 E.U./dL 0.0 - 1.0 EU/dl 09/11/2014 12:48 PM EDT [facility] Nitrite (Urine) Negative Negative 4 12:48 PM EDT [facility] Blood (Urine) Negative Negative 09/11/2014 12:48 PM EDT [facility] Leukocyte Esterase (Urine) Negative Negative 09/11/2014 12:48 PM EDT [facility] Leukocytes (Urine) 0-2(A) NONE SEEN 09/11/2014 12:48 PM EDT [facility] RBC (Urine Sed) 0-2(A) NONE SEEN 4 12:48 PM EDT [facility] Epithelial Cells (Urine Sed) MODERATE(A) NONE SEEN 09/11/2014 12:48 PM EDT [facility] Casts (Urine) NONE SEEN NONE SEEN 09/11/2014 12:48 PM EDT [facility] Crystals (Urine sed) NONE SEEN NONE SEEN 09/11/2014 12:48 PM EDT [facility] Bacteria (Urine) TRACE(A) NONE SEEN 09/11/20 14 12:48 PM EDT [facility] 09/11/2014 10:4 1 AM EDT 09/11/2014 10:41 AM EDT Narrative [facility] - 09/11/2014 12:00 AM EDT non fasting Patient's primary care provider is: ??Abdi Solo us Abdi Solo MD LABORATORY Final Result [facility] * BASIC METABOLIC PANEL W/GFR ([facility]) (09/11/2014 10:41 AM EDT) Only the most recent of2 resultswithin the time period is included. [facility] Signature Glucose 93 65 - 99 mg/dl 09/11/2014 12:50 PM EDT [facility] Urea Nitrogen Blood (BUN) 15 7 - 25 mg/dL 09/11/2014 12:50 PM EDT [facility] Creatinine 0.68 0.50 - 1.16 mg/dL 09/11/2014 12:50 PM EDT [facility] Sodium 137 136 - 145 mmo/L 09/11/2014 12:50 PM EDT [facility] Potassium 4.1 3.5 - 5.3 mmol/L 09/11/2014 12:50 PM EDT [facility] Chloride 98 98 - 107 mmo/L 09/11/2014 12:50 PM EDT [facility] Carbon Dioxide 30 23 - 33 mmol/L 09/11/2014 12:50 PM EDT [facility] Calcium 10.0 8.5 - 10.4 mg/dL 09/11/2014 12:50 PM EDT [facility] Glomerular Filtration Rate,Est 97 >60 ml/min 09/11/2014 12:50 PM EDT [facility] Comment: For patients greater than 18 years of and and if the patient is , please multiply result by 1.210 09/11/2014 10:4 1 AM EDT 09/11/2014 10:41 AM EDT Narrative [facility] - 09/11/2014 12:00 AM EDT non fasting Patient's primary care provider is: ??Abdi Solo us Abdi Solo MD LABORATORY Final Result [facility] * LAB TEST (09/04/2014 12:00 AM EDT) ATTACHED DOCUMENT 09/04/2014 12:00 AM EDT [facility] ATTACHED DOCUMENT 09/04/2014 12:00 AM EDT [facility] 09/04/2014 09/04/2014 Narrative Transcriptions Abdi Solo MD - 05/25/2015 12:00 AM EDT Abdi Solo MD - 05/26/2015 12:00 AM EDT us Abdi Solo MD LABORATORY Final Result [facility] * OPHTHALMOLOGY CONSULTATION (08/30/2014 12:00 [...] ISOLATED QUANTITY:: 4+ (HEAVY) Performing site QB: [employer] [address] [place] [address] ?? Gabe Humphrey, Ph.D., 06/12/2014 5:29 PM EDT 06/12/2014 5:29 PM EDT Narrative [facility] - 06/16/2014 12:00 AM EDT Patient's primary care provider is: ??SoloAbdi vu has No Known Allergies. Source: VAGINA Diane Blanton MD LABORATORY Final R esult Performing Organization Address [facility] Co de Phone Number [facility] * G. VAGINALIS CULTURE R/0 (06/12/2014 5:29 PM EDT) Gardnerella Vaginalis (Results below) 06/16/2014 10:47 AM EDT [facility] Comment: G. VAGINALIS CULTURE RESULTS: NO GARDNERELLA VAGINALIS ISOLATED Performing site QB: [employer] [address] [place] [address] ?? Gabe Humphrey, Ph.D., 06/12/2014 5:29 PM EDT 06/12/2014 5:29 PM EDT Narrative [facility] - 06/16/2014 12:00 AM EDT Patient's primary care provider is: ??Abdi Solo Source: VAG Diane Blanton MD LABORATORY Final R esult Performing Organization Address City/State/[facility] Co de Phone Number [facility] * KNEE XRAY LEFT MIN [...] Hormone 25.40 mIU/mL 06/13/2014 8:42 AM EDT [facility] Comment: Mid-follicular ?? Mid-cycle peak ??Mid-luteal ??Post-menopausal 3.85-8.78 ? 4.53-22.51 ? 1.79-5.12 ? 16.74-113.59 Performing site QB: [employer] [address] [place] [address] ?? Gabe Humphrey, Ph.D., 06/12/2014 4:52 PM EDT 06/12/2014 4:52 PM EDT Narrative [facility] - 06/13/2014 12:00 AM EDT Patient's primary care provider is: ??Abdi Solo us Diane Blanton MD LABORATORY Final R esult [facility] * PROLACTIN (06/12/2014 4:52 PM EDT) Prolactin 8.30 ng/mL 06/13/2014 8:38 AM EDT [facility] Comment: Pre-menopausal ? Post-menopausal 3.34-26.72 ? 2.74-19.64 Performing site QB: [employer] [address] ?? Gabe Humphrey, Ph.D., 06/12/2014 4:52 PM EDT 06/12/2014 4:52 PM EDT Narrative [facility] - 06/13/2014 12:00 AM EDT Patient's primary care provider is: ??Abdi Solo us Diane Blanton MD LABORATORY Final R esult [facility] * TSH W REFLEX (06/12/2014 4:52 PM EDT) [facility] Thyroid Stimulating Hormone 2.03 0.28 - 3.89 uIU/mL 06/13/2014 8:34 AM EDT [facility] Comment: Performing site QB: [employer] [address] ?? Gabe Humphrey, Ph.D., 06/12/2014 4:52 PM EDT 06/12/2014 4:52 PM EDT Narrative [facility] - 06/13/2014 12:00 AM EDT Patient's primary care provider is: ??Abdi Solo Diane Blanton MD LABORATORY Final R esult [facility] * HEMOGRAM (CBC) (06/12/2014 4:52 PM EDT) [facility] Leukocytes 9.1 3.8 - 10.8 K/uL 06/12/2014 5:43 PM EDT [facility] Erythrocytes 3.96 3.80 - 5.10 M/uL 06/12/2014 5:43 PM EDT [facility] Hemoglobin 12.3 11.7 - 15.5 g/dL 06/12/2014 5:43 PM EDT [facility] Hematocrit 35.4 35.0 - 45.0 % 06/12/2014 5:43 PM EDT [facility] Mean Corpuscular Volume 89.4 80.0 - 100.0 fl 06/12/2014 5:43 PM EDT [facility] Mean Corpuscular Hemoglobin 31.0 27.0 - 33.0 pg 06/12/2014 5:43 PM EDT [facility] Mean Corpuscular Hemoglobin Conc 34.6 32.0 - 36.0 % 06/12/2014 5:43 PM EDT [facility] Platelets 254 140 - 400 K/uL 06/12/2014 5:43 PM EDT [facility] RDW 11.4 11.0 - 15.0 % 06/12/2014 5:43 PM EDT [facility] 06/12/2014 4:52 PM EDT 06/12/2014 4:52 PM EDT Narrative [facility] - 06/12/2014 12:00 AM EDT Patient's primary care provider is: ??Abdi Solo Diane Blanton MD LABORATORY Final R esult Performing Organization Address [facility] Co de Phone Number [facility] * (ABNORMAL) RHEUMATOID FACTOR QUANT (06/12/2014 4:52 PM EDT) [facility] Rheumatoid Factor (RA) 136(H) <30 IU/mL 06/13/2014 5:05 PM EDT [facility] Comment: Performing site QB: [employer] [place] [address] ?? Gabe Humphrey, Ph.D., 06/12/2014 4:52 PM EDT 06/12/2014 4:52 PM EDT Narrative [facility] - 06/13/2014 5:05 PM EDT Combined order with Dr. Solo Patient's primary care provider is: ??Abdi Solo us Abdi Solo MD LABORATORY Final Result Performing Organization Address [facility] de Phone Number [facility] * C REACTIVE PROTEIN CARDIO (06/12/2014 4:52 PM EDT) [facility] Crp Cardio 1.8 mg/L 06/13/2014 8:43 AM EDT [facility] Comment: CRP (mg/L) ?? Relative Cardiovascular Risk < 1.0 ? Low 1.0-3.0 ?Average 3.1-10.0 ? High > 10.0 ?Persistent elevations may represent non- cardiovascular inflammation. AHA/CDC guidelines: Circulation 2003;107:499-511. Performing site QB: [employer] [place] [address] ?? Gabe Humphrey, Ph.D., 06/12/2014 4:52 PM EDT 06/12/2014 4:52 PM EDT Narrative [facility] - 06/13/2014 12:00 AM EDT Patient's primary care provider is: ??Abdi Solo us Abdi Solo MD LABORATORY Final Result [facility] * NICHO SCREEN W/REFL TITER IFA (06/12/2014 4:52 PM EDT) [facility] NICHO Screen Negative Negative 06/17/2014 10:09 AM EDT [facility] Anti-Nucleat AB Not indicated () 06/17/2014 10:09 AM EDT [facility] Comment: Test Performed by [employer], [address] [place] [address] Hermelindo Patterson M.D., Ph.D., Director of Laboratories , CLIA [id number] Performing site NI: [employer] [address] [place] [address] ?? CLIA [id number] 06/12/2014 4:52 PM EDT 06/12/2014 4:52 PM EDT Narrative [facility] - 06/17/2014 10:09 AM EDT Combined order with Dr. Solo Patient's primary care provider is: ??Abdi Solo us Abdi Solo MD LABORATORY Final Result [facility] * CYCLIC CITRULLINATED PEPTIDE ANTIBODY (IGG) (06/12/2014 4:52 PM EDT) Pathologist [facility] CCP (Cyclic Citrullinated Peptide) IgG < 16 () UNITS 06/14/2014 4:05 PM EDT [facility] Comment: Reference Range Negative: ?<20 Weak Positive: ? 20-39 Moderate Positive: ?? 40-59 Strong Positive: ? >59 Test performed at [employer] [facility] [address] [place], [place] ??[address] Director: JOVITA MCARTHUR MD Performing site QL: [employer] [place], [place] ?? [phone] 06/12/2014 4:52 PM EDT 06/12/2014 4:52 PM EDT Narrative [facility] - 06/14/2014 4:05 PM EDT Combined order with Dr. Solo Patient's primary care provider is: ??Abdi Solo Abdi Solo MD LABORATORY Final Result [facility] * PAP TEST (06/12/2014 3:20 AM EDT) PAP Smear [id number] 06/20/2014 6:33 PM EDT [facility] Comment: GENERAL CATEGORY: OTHER (See [...] at http://www.asccp.org/ConsensusGuidelines/AbnormalCervicalScreeningTests/ tabid/5958/Default.aspx for more information. APHLP/APHLP Specimen(s)/WINCH DRIVER Information: THINPREP CERVICAL/ENDOCERVICAL, 20 cc of fluid Total # of Slides/Specimen: 1 ? RELATED LABORATORY RESULTS Ord Date: 06/12/2014 Test Name ? Collected ? Result ?Abnormal ?Range HPV high ?06/12/2014 ?Negative ?Negative risk The slide was processed by the [employer] System, and was rescreened or reviewed by a silviculturist Screened by: ?? MARGARET GOULD, ? SIGNED OUT BY ELECTRONIC Account Executive Sales Representative ?SIGNATURE ?Signed Out by: MARGARET GOULD, ?Account Executive Sales Representative ?Date Reported: 06/20/2014 MAGDA LÓPEZ ?[id number] ?GYNECOLOGIC CYTOLOGY REPORT Printed: 06/20/2014 5:27 PM ?Page 1 of 1 06/12/2014 3:20 AM EDT 06/12/2014 3:20 AM EDT us Diane Blanton MD PATHOLOGY Final R esult [facility] * HPV HIGH RISK (06/12/2014 3:20 AM EDT) Human Papillomavirus (HPV) DNA, High Risk Negative Negative 06/20/2014 5:28 PM EDT [facility] 06/12/2014 3:20 AM EDT 06/12/2014 3:20 AM EDT Diane Blanton MD LABORATORY Final R esult [facility] * SCREENING MAMMOGRAPHY DIGITAL (06/12/2014 [...] 216(H) <200 mg/dL 03/06/2014 4:48 PM EDT [facility] Triglyceride 88 <150 mg/dL 03/06/2014 4:48 PM EDT [facility] Cholesterol.in HDL 62 >40 mg/dL 03/06/2014 4:48 PM EDT [facility] Comment: NCEP GUIDELINES Desireable >60 mg/dL Borderline 40-59 mg/dL ?? Undesirable <40 mg/dL LDL 136(H) <130 mg/dL 03/06/2014 4:48 PM EDT [facility] Chol/HDL Ratio 3 0 - 5 CALC 03/06/2014 4:48 PM EDT [facility] 03/06/2014 2:28 PM EDT 03/06/2014 2:28 PM EDT Narrative [facility] - 03/06/2014 12:00 AM EDT Patient's primary care provider is: ??Abdi Solo us Abdi Solo MD LABORATORY Final Result [facility] * EKG (03/06/2014) ATTACHED DOCUMENT [...] 06/12/2014 Need for prophylactic vaccination with combined ihzrkgtjbz-ddzggtm-qqhmznyub (DTP) vaccine 06/12/2014 Pain in joint, multiple [...] system and sense organs 07/04/2024 Care Teams Care Process Manager Relationship Specialty Start Date End Date Unknown Pcp, Non Rmg PCP - General 10/13/22
--- OUTSIDE RECORDS SUMMARY | 2025-03-05 11:45 | XMS_ITS | Encounter Summary ---
Author Organization [facility] Address [address] [place] [address] Care Team Providers Care Manager Costing Name Role Phone Vandana Epps MD Primary Care Provider [phone] Unknown Pcp, Non Rmg Primary Care Provider Unava ilable Reason for Visit * Reason Comments E-prescribing Refill Request Encounter Details Date Type Department Care Team ([facility] st Contact Info) Description 09/03/2020 Refill [facility] Adult Medicine [address] [place] [address] Vandana Epps MD [facility] [address] [facility] [address] [place] [address] E-prescribing Refill Request Social History [...] Propionate 50 MCG/ACT Nasal Suspension (FLONASE) Order: [id number] . Faxed/E-prescribed medication renewal request(s) for Matilde Jung 54 y.o. female received from pharmacy. Verified and Confirmed pharmacy for patient. Last CPE with this specialty: 10/23/2019 Last OV with this specialty: 10/23/2019 Next OV: Future Appointments Date Time Provider Department Phone 09/10/20 1:[address] [facility] Pulmonary [phone] 02/11/21 1:20 PM Alexandra Cancino OD [facility] Visual Services [phone] Pertinent lab results: No labs suggested for [...] Office Visit [facility]. Optometry [address] [place] [address] Agus Jacinto, OD [address] [place] [address] *est pt exam, no cl, no dm, 1 year follow up, aodv, *not elig. until 12/23/24, MH, 12/21* tommie, interp needed, aoir sent te over sent email to [email or web address] documented as of this encounter Visit Diagnoses Diagnosis Postnasal drip Chronic cough Cough documented in this encounter Care Teams Manager Costing Relationship Specialty Start Date End Date Vandana Epps MD PCP - General Internal Medicine 07/28/17 10/12/22 Unknown Pcp, Non Rmg PCP - General 10/13/22 documented as of this encounter
--- OUTSIDE RECORDS SUMMARY | 2025-03-05 11:45 | XMS_ITS | Encounter Summary ---
Author Organization [facility] Address [address] [place] [address] Care Team Providers Care Customer Security Clerk Name Role Phone Vandana Epps MD Primary Care Provider [phone] Unknown Pcp, Non Rmg Primary Care Provider Unava ilable Reason for Visit * Reason Comments E-prescribing Refill Request Encounter Details Date Type Department Care Team ([facility] st Contact Info) Description 08/22/[address] [facility] Adult Medicine [address] [place] [address] Vandana Epps MD [facility] [address] [facility] [address] [place] [address] E-prescribing Refill Request Social History [...] Phone 10/23/2019 1:00 [address]ana Epps MD [facility] Adult Medicine [phone] 10/23/2019 2:00 PM Jory Womack MD [facility] INSTRUCTIONAL TECHNOLOGY COORDINATOR [phone] Pertinent lab results: No labs suggested for [...] Description 07/08/2025 8:30 AM EDT Office Visit [facility]. Optometry [address] [place] [address] Agus Jacinto, OD [address] [place] [address] *est pt exam, no cl, no dm, 1 year follow up, aodv, *not elig. until 12/23/24, , 12/21* tommie, interp needed, aoir sent te over sent email to [email or web address] documented as of this encounter Visit Diagnoses Diagnosis Postnasal drip Chronic cough Cough documented in this encounter Care Teams Customer Security Clerk Relationship Specialty Start Date End Date Vandana Epps MD PCP - General Internal Medicine 07/28/17 10/12/22 Unknown Pcp, Non Rmg PCP - General 10/13/22 documented as of this encounter
--- OUTSIDE RECORDS SUMMARY | 2025-03-05 11:45 | XMS_ITS | Encounter Summary ---
Author Organization [facility] Address [address] [place] [address] Care Team Providers Care Batter Mixer Name Role Phone Brad Solo MD Primary Care Provider [phone] Vandana Epps MD Primary Care Provider [phone] Unknown Pcp, Non Rmg Primary Care Provider Unava ilable Encounter Details Date Type Department Care Team (Late st Contact Info) Description 08/19/2016 Orders Only [facility] Adult Medicine [address] [place] [phone] Brad Solo MD [address] [address] Social History Tobacco Use Types Packs/Day Years [...] Office Visit [facility]. Optometry [address] [place] [phone] Agus Jacinto, OD [address] [place] [address] *est pt exam, no cl, no dm, 1 year follow up, aodv, *not elig. until 12/23/24, , 12/21* tommie, interp needed, aoir sent te over sent email to [email or web address] documented as of this encounter Procedures * Due to [facility] law, this organization might not be [...] encounter Results * Due to [place] state law, this organization might not be sharing negative HIV tests. * THYROID STIMULATING HORMONE (TSH) WITH FREE T4 REFLEX, SERUM (08/19/2016 2:08 PM EDT) TSH (Thyrotropin) 2.69 0.40 - 4.50 uIU/ml [facility] 08/19/2016 2:08 PM EDT 08/19/2016 2:08 PM EDT Narrative [facility] - 08/19/2016 5:09 PM EDT not fasting Patient's primary care provider is: ??N/A Testing performed at: [facility], [address] [place] [address], [address], Therapeutic Recreation Specialist: Vikas Leung M.D. us Brad Solo MD LABORATORY Final Result [address] [address] DIRECTOR VIKAS LEUNG M.D. * VITAMIN D, 25-HYDROXY, TOTAL, IMMUNOASSAY (08/19/2016 2:08 PM EDT) VIT D, 25-OH, TOTAL 52 >29 ng/mL [facility] Comment: Vitamin D Status ??25-OH Vitamin D: Deficiency: ? <20 ng/mL Insufficiency: ? 20-29 ng/mL Optimal: ?> or = 30 ng/mL 08/19/2016 2:08 PM EDT 08/19/2016 2:08 PM EDT Narrative [facility] - 08/19/2016 5:09 PM EDT not fasting Patient's primary care provider is: ??N/A Testing performed at: [facility], [address] [place] [address], [address], Therapeutic Recreation Specialist: Vikas Leung M.D. Brad Solo MD LABORATORY Final Result [address] [address] DIRECTOR VIKAS LEUNG M.D. * (ABNORMAL) LIPID PANEL WITH REFLEX TO DIRECT LDL (08/19/2016 2:08 PM EDT) Cholesterol 215(H) <200 mg/dL [facility] Triglyceride 243(H) <150 mg/dL [facility] HDL Cholesterol 36(L) >40 mg/dL [facility] Comment: NCEP GUIDELINES Desireable >60 mg/dL Borderline 40-59 mg/dL ?? Undesirable <40 mg/dL LDL Cholesterol 130(H) <130 mg/dL [facility] CHOL/HDL Ratio 6(H) 0 - 5 CALC [facility] 08/19/2016 2:08 PM EDT 08/19/2016 2:08 PM EDT Narrative [facility] - 08/19/2016 5:09 PM EDT not fasting Patient's primary care provider is: ??N/A Testing performed at: [facility], [address] [place] [address], [address], Therapeutic Recreation Specialist: Vikas Leung M.D. us Brad Solo MD LABORATORY Final Result [address] [address] DIRECTOR VIKAS LEUNG M.D. * (ABNORMAL) COMPREHENSIVE [...] GROUP Comment:If the patient is Af rican Sudanese, please multiply result by 1.210 08/19/2016 2:08 PM EDT 08/19/2016 2:08 PM EDT Narrative [facility] - 08/19/2016 5:09 PM EDT not fasting Patient's primary care provider is: ??N/A Testing performed at: [facility], [address] [place] [address], [address], Therapeutic Recreation Specialist: Vikas Leung M.D. Brad Solo MD LABORATORY Final Result [address] [address] DIRECTOR VIKAS LEUNG M.D. * CBC INCLUDES [...] GROUP MCHC 33.1 32.0 - 36.0 g/dL [facility] RDW 12.4 11.0 - 15.0 % [facility] PLT 262 140 - 400 K/uL [facility] 08/19/2016 2:08 PM EDT 08/19/2016 2:08 PM EDT Narrative [facility] - 08/19/2016 2:48 PM EDT not fasting Patient's primary care provider is: ??N/A Testing performed at: [facility], [address] [place] [address], [address], Therapeutic Recreation Specialist: Vikas Leung M.D. us Brad Solo MD LAB SAME DAY RESULT Final Resu lt [address] [address] DIRECTOR VIKAS LEUNG M.D. documented in this encounter Visit Diagnoses Diagnosis Gastroesophageal reflux disease without esophagitis Esophageal reflux Screening cholesterol level Screening for lipoid disorders Vitamin D deficiency Anxiety Anxiety state, unspecified documented in this encounter Care Teams Batter Mixer Relationship Specialty Start Date End Date Brad Solo MD PCP - General 12/30/14 07/27/17 Vandana Epps MD PCP - General Internal Medicine 07/28/17 10/12/22 Unknown Pcp, Non Rmg PCP - General 10/13/22 documented as of this encounter
--- OUTSIDE RECORDS SUMMARY | 2025-03-05 11:45 | XMS_ITS | Encounter Summary ---
Author Organization [facility] Address [address] [place] [address] Care Team Providers Care Supervisor Photocomposition Name Role Phone Vandana Epps MD Primary Care Provider [phone] Unknown Pcp, Non Rmg Primary Care Provider Unava ilable Reason for Visit * Reason Comments Shoulder Pain L shoulder pain x 4 months and into elbow Encounter Details Date Type Department Care Team (Late st Contact Info) Description 12/13/2018 Orders Only [facility] Orthopedic Surgery [address] [place] [address] Car Rodriguez N, DO [address] [place] [address] Social History Tobacco Use Types Packs/Day Years [...] [facility]. Optometry [address] [place] [phone] Agus Jacinto, OD [address] [place] [address] *est pt exam, no cl, no dm, 1 year follow up, aodv, *not elig. until 12/23/24, MH, 12/21* tommie, interp needed, aoir sent te over sent email to [email or web address] documented as of this encounter Results * Due to [place] state law, this organization might not be [...] possible rotator cuff pathology. Procedure Note Maureen Hernandze MD - 12/13/2018 EXAM: X-ray left shoulder [...] chronicity documented in this encounter Care Teams Supervisor Photocomposition Relationship Specialty Start Date End Date Vandana Epps MD PCP - General Internal Medicine 07/28/17 10/12/22 Unknown Pcp, Non Rmg PCP - General 10/13/22 documented as of this encounter
--- OUTSIDE RECORDS SUMMARY | 2025-03-05 11:45 | XMS_ITS | Encounter Summary ---
Author Organization [facility] Address [address] [place] [address] Care Team Providers Care Computer Numerical Control Programmer Name Role Phone Brad Solo MD Primary Care Provider [phone] Vandana Epps MD Primary Care Provider [phone] Unknown Pcp, Non Rmg Primary Care Provider Unava ilable Encounter Details Date Type Department Care Team (Late st Contact Info) Description 10/06/2016 Orders Only [facility] STEEL PLATE PRINTER [address] [place] [phone] Cintia Gómez NP Social History Tobacco Use [...] - 10/11/2016 8:23 AM ESTQuick Note: To CINDER MAN for review, problem list updated, normal letter sent. documented in this encounter Plan of Treatment Upcoming Encounters Date Type Department Care Team (Late st Contact Info) Description 07/08/2025 8:30 AM EDT Office Visit [facility]. Optometry [address] [place] [address] Agus Jacinto OD [address] [place] [address] *est pt exam, no cl, no dm, 1 year follow up, aodv, *not elig. until 12/23/24, , 12/21* tommie, interp needed, aoir sent te over sent email to [email or web address] documented as of this encounter Procedures * Due to [employer] law, this organization might not be sharing negative HIV tests. Procedure Name Priority Date/Time Associated Diagnosis Comments THINPREP TIS PAP AND HPV MRNA E6/E7 REFLEX HPV 16,18/45 Routine 10/06/2016 4:27 PM EST Encounter for gynecological examination without abnormal finding documented in this encounter Results * Due to [facility] law, this organization might not be sharing negative HIV tests. * THINPREP TIS PAP AND HPV MRNA E6/E7 REFLEX HPV 16,18/45 (10/06/2016 4:27 PM EST) Clinical information none given [facility] Comment:{CLINICAL INFORMATIO N: {[id number]) Date last menstrual period 09/30/16 [facility] Comment:{LMP: {[id number]) Date of previous PAP smear NONE GIVEN [facility] Comment:{PREV. PAP: {[id number]) Date of previous biopsy NONE GIVEN [facility] Comment:{PREV. BX: {[id number]) Specimen source (Cvx/Vag) Cervix [facility] Comment:{SOURCE: {[id number]) Statement of Adequacy (Cvx/Vag) Satisfactory for evaluation. Endocervical/rosario sformation zone component absent. [facility] Comment:{STATEMENT OF ADEQUA CY: {[id number]) Cytology, Pap Smear Negative for intraepithelial lesion or malignancy. [facility] Comment:{INTERPRETATION/RESU LT: {[id number]) Cytology study comment (Cvx/Vag) This Pap test has been evaluated with computer assisted technology. [facility] Comment:{COMMENT: {[id number]) Die Sinker Apprentice (Cvx/Vag) MXD, CT (ASCP) CT screening location: [place] [address] Here@ [facility] Comment:{WELL HEAD PUMPER: { [id number]) HPV MRNA E6/E7 Not Detected Not Detected [facility] Comment: {HPV mRNA E6/E7 {[id number]) This test was performed using the APTIMA HPV Assay ([employer] This assay detects E6/E7 viral messenger RNA (mRNA) from 14 high-risk HPV types (16,18,31,33,35,39,45,51,52,56,58,59,66,68). 10/06/2016 4:27 PM EST 10/07/2016 2:45 AM EST Narrative Resulting Agency Comment [id number] [facility] CINDER MAN PATHOLOGY-INTERFACED Final R esult Performing Organization Address City/State/[facility] Co de Phone Number [employer] [address] [place] [address] documented in this encounter Visit Diagnoses Diagnosis Encounter for gynecological examination without abnormal finding Routine gynecological examination documented in this encounter Care Teams Computer Numerical Control Programmer Relationship Specialty Start Date End Date Brad Solo MD PCP - General 12/30/14 07/27/17 Vandana Epps MD PCP - General Internal Medicine 07/28/17 10/12/22 Unknown Pcp, Non Rmg PCP - General 10/13/22 documented as of this encounter
--- OUTSIDE RECORDS SUMMARY | 2025-03-05 11:45 | XMS_ITS | Encounter Summary ---
Author Organization [facility] Address [address] [place] [address] Care Team Providers Care Nursing Staffing Coordinator Name Role Phone Brad Solo MD Primary Care Provider [phone] Vandana Epps MD Primary Care Provider [phone] Unknown Pcp, Non Rmg Primary Care Provider Unava ilable Encounter Details Date Type Department Care Team (Late st Contact Info) Description 06/14/2017 Orders Only [facility] Adult Medicine [address] [place] [phone] Brad Solo MD [address] [address] Social History Tobacco Use Types Packs/Day Years [...] Visit [facility]. Optometry [address] [place] [phone] Agus Jacinto, OD [address] [place] [address] *est pt exam, no cl, no dm, 1 year follow up, aodv, *not elig. until 12/23/24, , 12/21* tommie, interp needed, aoir sent te over sent email to [email or web address] documented as of this encounter Procedures * Due to [place] [employer] law, this organization might not be sharing [...] in this encounter Results * Due to [place] [employer] law, this organization might not be sharing [...] GROUP Calcium 9.7 8.5 - 10.4 mg/dL [facility] Protein Total (Serum) 7.2 6.0 - 8.3 g/dL [facility] Albumin 4.3 3.5 - 5.2 g/dL [facility] Globulin 3 2 - 4 G/DL [facility] Bilirubin Total 0.22 0.00 - 1.20 mg/dL [facility] Alkaline phosphatase 48 33 - 130 U/L [facility] AST (SGOT) 15 <38 U/L [facility] ALT (SGPT) 12 <47 U/L [facility] Carbon dioxide 27 23 - 33 mmol/L [facility] GFR 92 >60 ml/min [facility] Comment:If the patient is Af rican Algerian, please multiply result by 1.210 06/14/2017 11:3 2 AM EDT 06/14/2017 11:32 AM EDT Narrative [facility] - 06/14/2017 1:46 PM EDT Patient's primary care provider is: ??N/A Testing performed at: [facility], [address] [place] [address], [address], Minute Clerk For Basic Traffic: Vikas Leung M.D. Brad Solo MD LABORATORY Final Result [address] [address] DIRECTOR VIKAS LEUNG M.D. * (ABNORMAL) CBC INCLUDES DIFFERENTIAL AND PLATELET COUNT (06/14/2017 11:32 AM EDT) WBC 10.6 3.8 - 10.8 K/uL [facility] Neutrophils # 8.2(H) 1.5 - 7.8 K/uL [facility] Immature Granulocytes # 0.02 0.00 - 0.07 K/uL [facility] Comment:Cells included in IM M GRANS # : Metamyelocytes, Myelocytes and Promyelocytes. Lymphocytes # 1.5 0.9 - 3.9 K/uL [facility] Monocytes # 0.7 0.2 [...] AM EDT 06/14/2017 11:32 AM EDT Narrative [facility] - 06/14/2017 12:12 PM EDT Patient's primary care provider is: ??N/A Testing performed at: [facility], [address] [place] [address], [address], Minute Clerk For Basic Traffic: Vikas Leung M.D. us Brad Solo MD LAB SAME DAY RESULT Final Resu lt [address] [address] DIRECTOR VIKAS LEUNG M.D. * ERYTHROCYTE SEDIMENTATION RATE (ESR), ADRIANA (06/14/2017 11:32 AM EDT) Sedimentation Rate [place] (ESR) 17 0 - 20 mm/hr [facility] 06/14/2017 11:3 2 AM EDT 06/14/2017 11:32 AM EDT Narrative [facility] - 06/14/2017 1:54 PM EDT Patient's primary care provider is: ??N/A Testing performed at: [facility], [address] [place] [address], [address], Minute Clerk For Basic Traffic: Vikas Leung M.D. Brad Solo MD LAB SAME DAY RESULT Final Resu lt Performing Organization Address [facility] Co de Phone Number [address] [address] DIRECTOR VIKAS LEUNG M.D. * NICHO SCREEN [...] for interpretation of all antibodies in the [place], prevalence, and association with diseases at [email or web address]/ [email or web address]/[email or web address] 06/14/2017 11:2 9 AM EDT 06/14/2017 8:03 PM EDT Narrative Resulting Agency Comment [id number] Brad Solo MD LABORATORY Final Result [facility] [address] [place] [address] * CYCLIC CITRULLINATEDPEPTIDE CCP AB IGG (06/14/2017 11:29 AM EDT) CCP Ab, IgG <16 UNITS [facility] Comment: Reference Range Negative: ?<20 Weak Positive: ? 20-39 Moderate Positive: ?? 40-59 Strong Positive: ? >59 06/14/2017 11:2 9 AM EDT 06/14/2017 8:03 PM EDT Narrative Resulting Agency Comment [id number] us Brad Solo MD LABORATORY Final Result Performing Organization Address [facility] Co de Phone Number [facility] [address] [place] [address] * (ABNORMAL) RHEUMATOID FACTOR, SERUM (06/14/2017 11:29 AM EDT) Rheumatoid Factor (Quant) 26(H) <14 IU/mL [facility] 06/14/2017 11:2 9 AM EDT 06/14/2017 8:03 PM EDT Narrative Resulting Agency Comment [id number] Brad Solo MD LABORATORY Final Result Performing Organization Address [facility] de Phone Number [facility] [address] [place] [address] * C-REACTIVE PROTEIN (CRP) - INFLAMMATION (06/14/2017 11:29 AM EDT) C reactive protein <0.10 <0.80 mg/dL [facility] Comment: Please be advised that patients taking Carboxypenicillins may exhibit falsely decreased C-Reactive Protein levels due to an analytical interference in this assay. 06/14/2017 11:2 9 AM EDT 06/14/2017 8:03 PM EDT Narrative Resulting Agency Comment [id number] Brad Solo MD LABORATORY Final Result Performing Organization Address [facility] Co de Phone Number [facility] [address] [place] [address] documented in this encounter Visit Diagnoses Diagnosis Multiple joint pain Pain in joint, multiple sites Chronic cough Cough Gastroesophageal reflux disease, esophagitis presence not specified documented in this encounter Care Teams Nursing Staffing Coordinator Relationship Specialty Start Date End Date Brad Solo MD PCP - General 12/30/14 07/27/17 Vandana Epps MD PCP - General Internal Medicine 07/28/17 10/12/22 Unknown Pcp, Non Rmg PCP - General 10/13/22 documented as of this encounter
--- OUTSIDE RECORDS SUMMARY | 2025-03-05 11:45 | XMS_ITS | Encounter Summary ---
Author Organization [facility] Address [address] [place] [address] Care Team Providers Care Staffing Account Manager Name Role Phone Brad Solo MD Primary Care Provider [phone] Vandana Epps MD Primary Care Provider [phone] Unknown Pcp, Non Rmg Primary Care Provider Unava ilable Reason for Referral * CONSULT AND TREATMENT (Routine) - Closed Specialty Diagnoses / Procedures Referred By Contac t Referred To Contact Mammography Diagnoses screening Procedures REQUEST FOR MAMMOGRAPHY BILATERAL(DX: SCREENING FOR BREAST CANCER Z12.31)(1 YR FROM LAST) NON-FC Brad Solo MD Phone: tel: fax: [facility] Referral ID Status Reason Start Date Expiration Date V isits Requested Visits Authorized [id number] Closed Continuity of Care 08/19/2017 1 1 Encounter Details Date Type Department Care Team (Late st Contact Info) Description 08/24/[address] [facility] Adult Medicine [address] [place] [phone] Brad Solo MD [address] [address] Social History Tobacco Use Types Packs/Day Years [...] [facility]. Optometry [address] [place] [address] Agus Jacinto, OD [address] [place] [address] *est pt exam, no cl, no dm, [...] on filedocumented in this encounter Care Teams Staffing Account Manager Relationship Specialty Start Date End Date Brad Solo MD PCP - General 12/30/14 07/27/17 Vandana Epps MD PCP - General Internal Medicine 07/28/17 10/12/22 Unknown Pcp, Non Rmg PCP - General 10/13/22 documented as of this encounter
--- OUTSIDE RECORDS SUMMARY | 2025-03-05 11:45 | XMS_ITS | Encounter Summary ---
Author Organization [facility] Address [address] [place] [address] Care Team Providers Care Differential Specialist Name Role Phone Brad oSlo MD Primary Care Provider [phone] Vandana Epps MD Primary Care Provider [phone] Unknown Pcp, Non Rmg Primary Care Provider Unava ilable Encounter Details Date Type Department Care Team (Late st Contact Info) Description 08/23/2016 Orders Only [facility] VEGETABLE CANNER [address] [place] [phone] Jory Womack MD [address] [place] [phone] Social History Tobacco Use Types Packs/Day Years [...] Office Visit [facility]. Optometry [address] [place] [phone] Agus Jacinto, AYAAN [address] [place] [address] *est pt exam, no cl, no dm, 1 year follow up, aodv, *not elig. until 12/23/24, MH, 12/21* tommie, interp needed, aoir sent te over sent email to [email or web address] documented as of this encounter Visit Diagnoses Not on filedocumented in this encounter Care Teams Differential Specialist Relationship Specialty Start Date End Date Brad Solo MD PCP - General 12/30/14 07/27/17 Vandana Epps MD PCP - General Internal Medicine 07/28/17 10/12/22 Unknown Pcp, Non Rmg PCP - General 10/13/22 documented as of this encounter
--- OUTSIDE RECORDS SUMMARY | 2025-03-05 11:45 | XMS_ITS | Encounter Summary ---
Author Organization [facility] Address [address] [place] [address] Care Team Providers Care Procurement Cost Coordinator Name Role Phone Brad Solo MD Primary Care Provider [phone] Vandana Epps MD Primary Care Provider [phone] Unknown Pcp, Non Rmg Primary Care Provider Unava ilable Encounter Details Date Type Department Care Team (Late st Contact Info) Description 10/28/2015 Orders Only [facility] [address] [place] [phone] John Oviedo MD [facility] Allergy, Asthma & Immunology [address] [place] [phone] Social History Tobacco Use Types Packs/Day Years [...] Description 07/08/2025 8:30 AM EDT Office Visit [facility] Optometry [address] [place] [phone] Agus Jacinto, OD [address] [place] [address] *est pt exam, no cl, no dm, 1 year follow up, aodv, *not elig. until 12/23/24, , 12/21* tommie, interp needed, aoir sent te over sent email to [email or web address] documented as of this encounter Procedures * Due to [facility] law, this organization might not be sharing negative HIV tests. Procedure Name Priority Date/Time Associated Diagnosis Comments HELICOBACTER PYLORI UREA BREATH TEST (UBIT-(R)) Routine 10/28/2015 8:57 AM EST Gastroesophageal reflux disease without esophagitis documented in this encounter Results * Due to [place] [employer] law, this organization might not be sharing negative HIV tests. * HELICOBACTER PYLORI UREA BREATH TEST (UBIT-(R)) (10/28/2015 8:57 AM EST) Urea Breath Test, Infra-Red (Ubit) NOT DETECTED NOT DETECTED [facility] Comment: {HELICOBACTER PYLORI, UREA BREATH TEST {[id number]) Antimicrobials, proton pump inhibitors, and bismuth preparations are known to suppress H. pylori, and ingestion of these prior to H. pylori diagnostic testing may lead to false negative results. If clinically indicated, the test may be repeated on a new specimen obtained two weeks after discontinuing treatment. 10/28/2015 8:57 AM EST 10/28/2015 2:27 PM EST Narrative Resulting Agency Comment [id number] us John Oviedo MD LABORATORY Final Resu lt [facility] [address] [place] [address] documented in this encounter Visit Diagnoses Diagnosis Gastroesophageal reflux disease without esophagitis Esophageal reflux documented in this encounter Care Teams Procurement Cost Coordinator Relationship Specialty Start Date End Date Brad Solo MD PCP - General 12/30/14 07/27/17 Vandana Epps MD PCP - General Internal Medicine 07/28/17 10/12/22 Unknown Pcp, Non Rmg PCP - General 10/13/22 documented as of this encounter
--- OUTSIDE RECORDS SUMMARY | 2025-03-05 11:45 | XMS_ITS | Encounter Summary ---
Author Organization [facility] Address [address] [place] [address] Care Team Providers Care Hand Kiss Setter Name Role Phone Vandana Epps MD Primary Care Provider [phone] Unknown Pcp, Non Rmg Primary Care Provider Unava ilable Encounter Details Date Type Department Care Team (Late st Contact Info) Description 10/18/2018 Orders Only [facility] Adult Medicine [address] [place] [phone] Vandana Epps MD [facility] [address] [facility] [address] [place] [address] Social History Tobacco Use Types [...] Description 07/08/2025 8:30 AM EDT Office Visit [facility] Optometry 5 [place] [phone] Agus Jacinto, OD [address] [place] [address] *est pt exam, no cl, no dm, 1 year follow up, aodv, *not elig. until 12/23/24, , 12/21* tommie, interp needed, aoir sent te over sent email to [email or web address] documented as of this encounter Procedures * Due to [facility] law, this organization might not be [...] in this encounter Results * Due to [place] state law, this organization might not be [...] is not present Confirmed by Batsheva Tamez ([id number]), newspaper editor RIKY LEWIS ([id number]) on 10/24/2018 8:02:37 AM [facility]USE EKG SYSTEM 10/18/2018 10:3 9 AM EST 10/24/2018 8:02 AM EST us Vandana Epps MD CARDIOVASCULAR-WITH INBSKT RTG Final Result [facility] * (ABNORMAL) LIPID PANEL WITH REFLEX TO DIRECT LDL (10/18/2018 10:17 AM EST) Cholesterol 167 <200 mg/dL [facility] Triglyceride 112 <150 mg/dL [facility] HDL Cholesterol 40(L) >40 mg/dL [facility] Comment: NCEP GUIDELINES Desireable >60 mg/dL Borderline 40-59 mg/dL ?? Undesirable <40 mg/dL LDL Cholesterol 104 <130 mg/dL [facility] CHOL/HDL Ratio 4 0 - 5 CALC [facility] 10/18/2018 10:1 7 AM EST 10/18/2018 10:17 AM EST Narrative [facility] - 10/18/2018 1:38 PM EST non fasting Patient's primary care provider is: ??N/A Testing performed at: [facility], [address] [place] [address], [address], Prison Guard Supervisor: Seth Gutierrez MD us Vandana Epps MD LABORATORY Final Result Performing Organization Address [facility] Co de Phone Number [address] [address] DIRECTOR Seth Gutierrez MD * THYROID STIMULATING HORMONE (TSH) WITH FREE T4 REFLEX, SERUM (10/18/2018 10:17 AM EST) TSH (Thyrotropin) 2.16 0.40 - 4.50 uIU/ml [facility] 10/18/2018 10:1 7 AM EST 10/18/2018 10:17 AM EST Narrative [facility] - 10/18/2018 1:38 PM EST non fasting Patient's primary care provider is: ??N/A Testing performed at: [facility], [address] [place] [address], [address], Prison Guard Supervisor: Seth Gutierrez MD us Vandana Epps MD LABORATORY Final Result Performing Organization Address [facility]/ZIP Co de Phone Number [address] [address] DIRECTOR Seth Gutierrez MD * COMPREHENSIVE METABOLIC [...] GROUP Comment:If the patient is Af rican [place]guill[place], please multiply result by 1.210 10/18/2018 10:1 7 AM EST 10/18/2018 10:17 AM EST Narrative [facility] - 10/18/2018 1:38 PM EST non fasting Patient's primary care provider is: ??N/A Testing performed at: [facility], [address] [place] [address], [address], Prison Guard Supervisor: Seth Gutierrez MD Vandana Epps MD LABORATORY Final Result Performing Organization Address [facility] Co de Phone Number [facility] [address] [place] [address] DIRECTOR Seth Gutierrez MD * CBC INCLUDES [...] care provider is: ??N/A Testing performed at: [facility], [address] [place] [address], [address], Prison Guard Supervisor: Seth Gutierrez MD Vandana Epps MD LAB SAME DAY RESULT Final Resu lt [address] [address] DIRECTOR Seth Gutierrez MD documented in this encounter Visit Diagnoses Diagnosis Weight loss Loss of weight Screening for hypercholesterolemia Screening for lipoid disorders Chest pain, unspecified type documented in this encounter Care Teams Hand Kiss Setter Relationship Specialty Start Date End Date Vandana Epps MD PCP - General Internal Medicine 07/28/17 10/12/22 Unknown Pcp, Non Rmg PCP - General 10/13/22 documented as of this encounter
--- OUTSIDE RECORDS SUMMARY | 2025-03-05 11:45 | XMS_ITS | Encounter Summary ---
Author Organization [facility] Address [address] [place] [address] Care Team Providers Care Covering Machine Operator Helper Name Role Phone Vandana Epps MD Primary Care Provider [phone] Unknown Pcp, Non Rmg Primary Care Provider Unava ilable Reason for Visit * Reason Comments E-prescribing Refill Request Encounter Details Date Type Department Care Team ([facility] st Contact Info) Description 06/24/2020 Refill [facility] Adult Medicine [address] [place] [phone] Vandana Epps MD [facility] [address] [facility] [address] [place] [address] E-prescribing Refill Request Social History [...] Famotidine 20 MG Oral Tablet (PEPCID) Order: [id number] E-Prescribing Status: Receipt confirmed by pharmacy (02/28/2020 ??4:44 PM EDT) Order Providers Faxed/E-prescribed medication renewal request(s) for Matilde Jung 54 y.o. female received from pharmacy. Verified and Confirmed pharmacy for patient. Last CPE with this specialty: 10/23/2019 Last OV with this specialty: 10/23/2019 Next OV: Future Appointments Date Time Provider Department Phone 08/20/20 1:30 PM Eloy Pritchard MD [facility] Pulmonary [address] Pertinent lab results: No [...] [facility]. Optometry [address] [place] [phone] Agus Jacinto, OD [address] [place] [address] *est pt exam, no cl, no dm, 1 year follow up, aodv, *not elig. until 12/23/24, MH, 12/21* tommie, interp needed, aoir sent te over sent email to [email or web address] documented as of this encounter Visit Diagnoses Not on filedocumented in this encounter Care Teams Covering Machine Operator Helper Relationship Specialty Start Date End Date Vandana Epps MD PCP - General Internal Medicine 07/28/17 10/12/22 Unknown Pcp, Non Rmg PCP - General 10/13/22 documented as of this encounter
== END 2025-03-05 09:42 | disposition home or self-care (01) ==
LOC: HO.HOSX 09:41
PROVIDERS: PCP Internal Medicine; Visit Provider Physical Medicine & Rehabilitation
DX: M79.605 Pain in left leg (principal); M54.9 Dorsalgia, unspecified; M25.559 Pain in unspecified hip; M54.42 Lumbago with sciatica, left side; G89.29 Other chronic pain
CPT/HCPCS: 72100; 73522; 99202

== ENCOUNTER → 2025-03-05 10:12 | Outpatient (BNV) | payer MEDICARE, MEDICAID, SELFPAY | PROVIDERS: PCP Internal Medicine; Visit Provider Radiology Neuroradiology | DX: M16.0 Bilateral primary osteoarthritis of hip (principal); M51.360 Other intervertebral disc degeneration, lumbar region with discogenic back pain only | CPT/HCPCS: 72100; 73522 ==

== ENCOUNTER 2025-04-19 08:36 | Outpatient (AMB) | payer MEDICARE, MEDICAID, SELFPAY ==
--- NOTE | 2025-04-19 08:41 | A.OFFVIS_ITS ---
Vital Signs 04/19/25 08:45 Height 5 ft Weight 113 lb BMI 22.1 Intake Visit Reasons: New Prob - B/L hip OA Intake Note: Matilde is a 59 year old female who presents today for a evaluation of her bilateral hip OA. Patient reports ongoing pain through out her leg. She notices that her pain is on the lateral aspect of the left hip. Patient states that her pain is worse on the left hip than the right hip. IMPRESSION: Mild-moderate osteoarthritis of the both hips. Continuous Dryout Operator Required: Yes Continuous Dryout Operator Language: Maldivian Allergies No Known Allergies [No Known Allergies*] Allergy (Verified 04/19/25 08:47) HPI HPI New Prob - B/L hip OA: Details: Ms. Abdirahman Jung is a 59-year-old hearing impaired female who presents to the office today for left lower extremity swelling, numbness, tingling and cramping. It is difficult to interpret what the patient is trying to communicate. Even with a senior operations analyst, the panel instrument repairer reports that she is unfamiliar with the signs the patient is using. The patient is accompanied by a facility member at the home in which she stays at. The facility member states that she does make up her own signs and does have a difficult time communicating. The patient is gesturing to pain that originates on the lateral aspect of the hip down to the knee and into the ankle and foot. Additionally, she points to the veins that are on the left lower extremity and does report to the panel instrument repairer that her pain is with ambulation and worsens with continued ambulation. She reports pins and needles in the left foot. [facility] Medical History GERD (gastroesophageal reflux disease) Mild recurrent major depression Encounter for physical examination Chronic cough Blind right eye Developmental delay, mild Deaf mutism, congenital Allergic rhinitis Hypovitaminosis D Insomnia Depression Surgical History History of esophagogastroduodenoscopy (EGD) Hx of colonoscopy Family History Father Stroke Mother Diabetes Family/Other FH: mental illness Social History Housing: Other Alcohol intake: never Patient Tobacco Use Status: Never used Tobacco e-Cigarette/Vaping Use: Never Used Second Hand Smoke Exposure: No service: No Current occupational status: disabled Cognitive needs: No Hearing needs: Yes Vision needs: Yes Review of Systems Const All systems reviewed & are unremarkable except as noted in HPI and below Physical Exam Vital Signs: BMI result Body Mass Index 22.1 Const General: cooperative, healthy appearing and no acute distress Resp Effort & Inspection: normal respiratory effort and able to speak in complete sentences Cardio Rate: regular rate Peripheral pulses: Peripheral pulses 2+ throughout Extrem Other: Left lower extremity: Able to perform full range of motion of the ankle, knee and hip. Able to perform straight leg raise. Patient points out multiple telangiectasias on the left lower extremity. Reports numbness and tingling in the left foot. Assessment & Plan Assessment & Plan (1) Low back pain with left-sided sciatica: Code(s): M54.42 - Lumbago with sciatica, left side Category: Medical Qualifiers: Chronicity: chronic Back pain laterality: left Qualified Code(s): M54.42 - Lumbago with sciatica, left side; G89.29 - Other chronic pain (2) Osteoarthritis of left knee: Code(s): M17.12 - Unilateral primary osteoarthritis, left knee Category: Medical (3) Osteoarthritis of left hip: Code(s): M16.12 - Unilateral primary osteoarthritis, left hip Category: Medical (4) Venous insufficiency: Code(s): I87.2 - Venous insufficiency (chronic) (peripheral) Category: Medical Plan Ms. Abdirahman Jung is a 59-year-old hearing impaired female who presents to the office today for left lower extremity swelling, numbness, tingling and cramping. It is difficult to interpret what the patient is trying to communicate. Even with a senior operations analyst, the panel instrument repairer reports that she is unfamiliar with the signs the patient is using. The patient is accompanied by a facility member at the home in which she stays at. The facility member states that she does make up her own signs and does have a difficult time communicating. The patient is gesturing to pain that originates on the lateral aspect of the hip down to the knee and into the ankle and foot. Additionally, she points to the veins that are on the left lower extremity and does report to the panel instrument repairer that her pain is with ambulation and worsens with continued ambulation. She reports pins and needles in the left foot. While in the office today, we discussed the role of vascular consult and physiatry consult. Upon upon further chart review the patient has been seen by both consultants. Dr. Terrazas vascular surgeon evaluated patient and appears as though she does not have any evidence of vascular disease. Dr. Gracia, insurance instructor has also seen and evaluated the patient is and has recommended a referral to pain management. Therefore, I have placed a referral to pain management at this time. Patient does have x-ray findings for zrnj-by-ohefwrko osteoarthritis of both hips. Imaging was obtained on 03/05/2025. Additionally, she has had lumbar spine x-rays that were obtained on 03/05/2025 and were significant for degenerative changes include fossa arthropathy. She will follow up with Orthopedics p.r.n., sooner if needed. Coding Level of Care Code New Pt Level 4 (99796) Diagnoses Chronic left-sided low back pain with left-sided sciatica M54.42; G89.29 Chronicity: chronic Back pain laterality: left Osteoarthritis of left knee M17.12 Osteoarthritis of left hip M16.12 Venous insufficiency I87.2
[2025-04-19 08:45] VITALS: BMI 22.1
--- OUTSIDE RECORDS SUMMARY | 2025-04-19 08:47 | XMS_ITS | Encounter Summary ---
Author Organization [facility] Address [address] [place] [address] Care Team Providers Care Director Of Loss Prevention Name Role Phone Vandana Epps MD Primary Care Provider [phone] Unknown Pcp, Non Rmg Primary Care Provider Unava ilable Reason for Visit * Reason Comments E-prescribing Refill Request Encounter Details Date Type Department Care Team (Late st Contact Info) Description 06/27/2018 Refill [facility] Adult Medicine [address] [place] [phone] Jeanine Mcpherson NP E-prescribing Refill Request Social [...] Route: 1 CAPSULE DAILY - Oral Order: [id number] . Faxed/E-prescribed medication renewal request(s) for Matilde [...] [facility]. Optometry [address] [place] [address] Agus Jacinto, OD [address] [place] [address] *est pt exam, no cl, no dm, 1 year follow up, aodv, *not elig. until 12/23/24, , 12/21* tommie, interp needed, aoir sent te over sent email to [email or web address] documented as of this encounter Visit Diagnoses Not on filedocumented in this encounter Care Teams Director Of Loss Prevention Relationship Specialty Start Date End Date Vandana Epps MD PCP - General Internal Medicine 07/28/17 10/12/22 Unknown Pcp, Non Rmg PCP - General 10/13/22 documented as of this encounter
== END 2025-04-19 09:07 | disposition home or self-care (01) ==
LOC: HO.HOS 08:37
PROVIDERS: PCP Internal Medicine; Visit Provider Physician Assistant
DX: M54.42 Lumbago with sciatica, left side (principal); G89.29 Other chronic pain; M17.12 Unilateral primary osteoarthritis, left knee; M16.12 Unilateral primary osteoarthritis, left hip; I87.2 Venous insufficiency (chronic) (peripheral)
CPT/HCPCS: 99214

== ENCOUNTER → 2025-04-19 08:36 | Outpatient (BNVA) | payer MEDICARE, MEDICAID, SELFPAY | PROVIDERS: PCP Internal Medicine; Visit Provider Physician Assistant | DX: M54.42 Lumbago with sciatica, left side (principal); M17.12 Unilateral primary osteoarthritis, left knee; M16.12 Unilateral primary osteoarthritis, left hip; I87.2 Venous insufficiency (chronic) (peripheral); G89.29 Other chronic pain | CPT/HCPCS: 99212 ==

== ENCOUNTER → 2025-05-07 13:48 | Outpatient (BNVA) | payer MEDICARE, MEDICAID, SELFPAY | PROVIDERS: PCP Internal Medicine; Referring Provider Physician Assistant; Visit Provider Nurse Practitioner Family ==

== ENCOUNTER 2025-11-11 09:03 | Outpatient (AMB) | payer MEDICARE, MEDICAID, SELFPAY ==
--- NOTE | 2025-11-11 09:05 | A.OFFVIS_ITS ---
Vital Signs 11/11/25 09:16 Height 5 ft Weight 120 lb BMI 23.4 BP 136/69 Blood Pressure Location Lt brachial Position Sitting Pulse 80 Pulse Source Pulse Oximeter Pulse Oximetry (%) 97 Oxygen Delivery Method Room Air Intake Visit Reasons: LUMBAGO WITH SCIATICA Intake Note: Pain today 09/06 Adelina- staff occupational therapist Required: Yes Can Closing Machine Tender Language: Chute Greaser Services: Can Closing Machine Tender Present Can Closing Machine Tender Name: Meri Giron pt int Accompanied by: Other Relationship Allergies No Known Allergies (No Known Allergies*) Allergy (Verified 11/11/25 09:15) HPI Comments Details: The patient is a 60-year-old female presenting for evaluation of low back pain, for which she was referred by Orthopedics. Her past medical history is significant for left knee arthritis, bilateral hip arthritis, mild developmental delay, congenital deafness, depression, and blindness in the right eye. [facility] [place]. During the visit, there was difficulty communicating, but the patient indicated her left knee was the major source of pain, despite the referral being for her back. Pain was also described as involving the entire left leg and at one point was reported to have started in the foot and radiated upward. She has a history of a left knee injection on December 25, 2024, which reportedly provided relief after three days, though she initially denied this during the current encounter. For pain management at home, she intermittently takes Tylenol. The patient also experiences significant sleep disturbance, taking Zolpidem but only sleeping for a few hours before waking up in the mutual fund analyst; it is unclear if this is due to pain. Pain Description - Onset and Location: The patient was referred for low back pain, but during the visit, she identified the left knee as the main source of pain. - Quality: The pain is described as sharp, aching and throbbing. - Radiation: She described pain radiating from her back down the entire left leg, as well as pain starting in the foot and radiating up. - Interference with Function: The patient has difficulty walking climbing stairs, and difficulty sleeping, though it is unclear if insomnia is directly caused by pain. Pain Management - Affect: The patient has a history of depression and experiences significant sleep disturbance. - Analgesia: The patient occasionally takes Tylenol for pain. - Adverse Effects: No adverse effects from current medications were discussed. - Activities of Daily Living: Sleep is impaired, as she sleeps for only one to two hours at a time before waking early in the morning. - Aberrant Drug Related Behaviors: The patient refused a left knee injection during the visit, despite staff confirming she had received one previously with good effect. [facility] Medical History GERD (gastroesophageal reflux disease) Mild recurrent major depression Encounter for physical examination Chronic cough Blind right eye Developmental delay, mild Deaf mutism, congenital Allergic rhinitis Hypovitaminosis D Insomnia Depression Surgical History History of esophagogastroduodenoscopy (EGD) Hx of colonoscopy Family History Father Stroke Mother Diabetes Family/Other FH: mental illness Social History Housing: Other Alcohol intake: never Patient Tobacco Use Status: Never used Tobacco e-Cigarette/Vaping Use: Never Used Second Hand Smoke Exposure: No service: No Current occupational status: disabled Cognitive needs: No Hearing needs: Yes Vision needs: Yes Review of Systems Narrative - Constitutional: Reports insomnia. - Musculoskeletal: Reports low back pain, left knee pain, bilateral hip arthritis, and foot pain. - Neurological: Reports history of mild developmental delay. - HEENT: Reports history of congenital deafness and blindness in the right eye. - Psychiatric: Reports history of depression. Const All systems reviewed & are unremarkable except as noted in HPI and below Physical Exam Vital Signs: Last Vital Signs Pulse 80 11/11/25 09:16 BP 136/69 11/11/25 09:16 Pulse Ox 97 11/11/25 09:16 Oxygen Delivery Method Room Air 11/11/25 09:16 BMI result Body Mass Index 23.4 General: Appears afebrile. Alert and oriented. Mood and affect appropriate. Follows and participates in conversation appropriately. Respiratory effort is unlabored. No cough. Able to transition from sit to stand unassisted. Ambulates with bilaterally normal heel strike and toe off. Patient presents with communication difficulties and requires ASL interpreters. Back/Spine/Pelvis Other: Patient refused back exam. Extrem General: Yes capillary refill normal, Yes no clubbing, cyanosis or edema and Yes no calf tenderness Left lower extremity: knee Details: normal to inspection, tenderness Location: of the patella, of the medial joint line and of the lateral joint line, normal ROM and crepitus; no swelling, no ecchymosis, no deformity and no unusual warmth Results Reviewed Results Reviewed: XR lumbar spine 2-3V 03/05/25 CLINICAL HISTORY: M54.9 - Dorsalgia, unspecified 3 views lumbar spine Comparison: None Findings: Partial obscuration of the lumbosacral junction with otherwise normal heights of the 5 lumbar vertebrae. No significant listhesis. L4 and L5 pars are partly obscured without definite lysis. Degenerative changes include multifocal facet arthropathy; most pronounced in the lower lumbar spine. Sacrum, sacroiliac joints, and hips are obscured. Mild atelectasis in the dtgqv-yq-hoxu. Moderate to severe stool burden present. Vascular calcifications noted. IMPRESSION: Degenerative changes include facet arthropathy by radiographs. XR KNEE 1-2 VIEWS LEFT 12/25/24 HISTORY: M25.569 - Pain in unspecified knee COMPARISON: Comparison is made with the prior examination of the left knee dated 12/12/2024. FINDINGS: Standing AP views of the bilateral knees and an additional sunrise patellar view of the left knee are submitted. Osseous mineralization is normal. There is no fracture or dislocation. There is mild degenerative change of the patellofemoral joint with osteophyte formation. The soft tissues are unremarkable. IMPRESSION: Mild degenerative change of the patellofemoral joint. Assessment & Plan Assessment & Plan (1) Left knee pain: Code(s): M25.562 - Pain in left knee Category: Medical Qualifiers: Chronicity: chronic Qualified Code(s): M25.562 - Pain in left knee; G89.29 - Other chronic pain (2) Osteoarthritis of left knee: Code(s): M17.12 - Unilateral primary osteoarthritis, left knee Category: Medical Plan The patient presented for evaluation of pain, with a focus on her left knee due to her complaints during the visit. Physical examination revealed medial left knee pain with significant crepitation, consistent with arthritis. An intra- articular injection was offered as a treatment option, which the patient refused despite having had a successful cortisone injection earlier this year. Given the refusal of procedural intervention, a pharmacological approach will be initiated. A prescription for Celebrex 100 mg will be sent to her pharmacy, to be taken twice daily as needed with food and water. Additionally, a prescription for Lidocaine 5% patches will be provided for topical analgesia, to be applied for 12 hours on and 12 hours off, with refills. If the patient does not tolerate the patch adhesive, a lidocaine cream will be prescribed as an alternative. The patient and her staff were instructed to call and schedule an x-ray guided therapeutic knee injection in the hospital if this conservative management plan fails to provide adequate pain relief. All questions and concerns have been answered and patient agreed with the treatment plan. Follow up as needed. Patient was informed and verbally consented to the use of an ambient scribe for clinic note documentation during this visit. Medications: New celecoxib (Celebrex) Take it with food and full glass of water 100 mg PO BID PRN 60 caps 0RF pain 30 days G89.29 - Other chronic pain, M17.12 - Unilateral primary osteoarthritis, left knee, M25.562 - Pain in left knee lidocaine 5% 1 patch topical DAILY PRN 30 ea 6RF pain 30 days G89.29 - Other chronic pain, M17.12 - Unilateral primary osteoarthritis, left knee, M25.562 - Pain in left knee Coding Level of Care Code New Pt Level 4 (92519) Diagnoses Chronic pain of left knee M25.562; G89.29 Chronicity: chronic Osteoarthritis of left knee M17.12
[2025-11-11 09:16] VITALS: BP 136/69; PULSE 80; O2SAT 97; BMI 23.4
== END 2025-11-11 09:46 | disposition home or self-care (01) ==
LOC: HO.PMC 09:04
PROVIDERS: PCP Internal Medicine; Visit Provider Nurse Practitioner Family
DX: M25.562 Pain in left knee (principal); G89.29 Other chronic pain; M17.12 Unilateral primary osteoarthritis, left knee
CPT/HCPCS: 99204

== ENCOUNTER → 2025-11-11 09:03 | Outpatient (BNVA) | payer MEDICARE, MEDICAID, SELFPAY | PROVIDERS: PCP Internal Medicine; Visit Provider Nurse Practitioner Family | DX: M25.562 Pain in left knee (principal); M17.12 Unilateral primary osteoarthritis, left knee; G89.29 Other chronic pain | CPT/HCPCS: 99202 ==

== ENCOUNTER → 2025-11-26 07:30 | Outpatient (BNV) | payer MEDICARE, MEDICAID, SELFPAY | PROVIDERS: PCP Internal Medicine; Visit Provider Internal Medicine | DX: Z12.31 Encounter for screening mammogram for malignant neoplasm of breast (principal) | CPT/HCPCS: 77063; 77067 ==

== ENCOUNTER 2025-11-26 07:31 | Outpatient (REF) | payer MEDICARE, MEDICAID, SELFPAY ==
--- NOTE | ~2025-11-26 | MM_ITS ---
EXAMINATION: MM SCREENING DIGITAL BREAST TOMOSYNTHESIS, BILATERAL CLINICAL INFORMATION: Screening. Asymptomatic. COMPARISON: Mammography: Comparison is made with available priors TECHNIQUE: Digital breast mammography with tomosynthesis is performed in both the craniocaudal and mediolateral oblique views along with computer-aided detection (CAD). FINDINGS: The breasts are heterogeneously dense, which may obscure small masses. There are no significant masses, abnormal calcifications, or other abnormalities. MM/MM tomosynthesis screening BI IMPRESSION: No mammographic evidence of malignancy. ASSESSMENT: BI-RADS Category 1: Negative RECOMMENDATION: Routine annual mammography screening. 1 year F/U This examination should not preclude the clinical evaluation of a suspicious palpable abnormality. This patient's information was entered into a reminder system with a target due date for their next mammogram. Electronically signed by: Funmi Grove DO 11/27/2025 02:15 PM [email or web address]
--- OUTSIDE RECORDS SUMMARY | 2025-11-26 09:03 | XMS_ITS | Encounter Summary ---
Author Organization [facility] Address [address] [place] [address] Care Team Providers Care Hose Turner Name Role Phone Vandana Epps MD Primary Care Provider [phone] Unknown Pcp, Non Rmg Primary Care Provider Unava ilable Reason for Referral * CONSULT AND TREATMENT (Routine) - Auth Not Needed Specialty Diagnoses / Procedures Referred By Contac t Referred To Contact Mammography Diagnoses annual screening Procedures REQUEST FOR MAMMOGRAPHY BILATERAL(DX: SCREENING FOR BREAST CANCER Z12.31)(1 YR FROM LAST) NON-FC Vandana Epps MD Phone: tel: fax: [facility] Referral ID Status Reason Start Date Expiration Date Visits Requested Visits Authorized [id number] Auth Not Needed Continuity of Care 09/15/2017 1 1 Encounter Details Date Type Department Care Team (Late st Contact Info) Description 09/15/2017 Orders Only [facility] Adult Medicine [address] [place] [phone] Vandana Epps MD [facility] [address] [facility] [address] [place] [address] Social History Tobacco Use Types [...] Care Team (Late st Contact Info) Description 07/21/2026 7:30 AM EDT Office Visit [facility]. Optometry [address] [place] [address] Agus Jacinto, OD [address] [place] [address] Return in about 1 year (around 07/17/2026) for OV-2, DFE. Scheduled Orders Name Type Priority Associated Diagnoses Orde r Schedule REQUEST FOR MAMMOGRAPHY BILATERAL(DX: SCREENING FOR BREAST CANCER Z12.31)(1 YR FROM LAST) NON-FC Imaging Routine Ordered: 1 documented as of this encounter Visit Diagnoses Not on filedocumented in this encounter Care Teams Hose Turner Relationship Specialty Start Date End Date Vandana Epps MD PCP - General Internal Medicine 07/28/17 10/12/22 Unknown Pcp, Non Rmg PCP - General 10/13/22 documented as of this encounter
--- OUTSIDE RECORDS SUMMARY | 2025-11-26 09:03 | XMS_ITS | Encounter Summary ---
Author Organization [facility] Address [address] [place] [id number] Care Team Providers Care Distribution Supervisor Name Role Phone Unknown Pcp, Non Rmg Primary Care Provider Unava ilable Reason for Visit * Reason Comments Appointment Encounter Details Date Type Department Care Team (Late st Contact Info) Description 04/10/[address] [facility] Optometry [address] [place] [address] Agus Jacinto OD [address] [place] [address] Appointment Social History Tobacco Use Types Packs/Day [...] Phone 07/04/24 8:30 AM Agus Jacinto OD [facility] Optometry [phone] Pt need a sign postal service mail processor had to reschedule to an ov2 contact sign postal service mail processor for this appt sent email to [email or web address] documented in this encounter Plan of Treatment Upcoming Encounters Date Type Department Care Team (Late st Contact Info) Description 07/21/2026 7:30 AM EDT Office Visit [facility] Optometry [address] [place] [phone] Agus Jacinto OD [address] [place] [address] Return in about 1 year (around 07/17/2026) for OV-2, DFE. documented as of this encounter Visit Diagnoses Not on filedocumented in this encounter Care Teams Distribution Supervisor Relationship Specialty Start Date End Date Unknown Pcp, Non Rmg PCP - General 10/13/22 documented as of this encounter
--- OUTSIDE RECORDS SUMMARY | 2025-11-26 09:03 | XMS_ITS | Encounter Summary ---
Author Organization [facility] Address [address] [place] [address] Care Team Providers Care Physical Education Department Chair Name Role Phone Vandana Epps MD Primary Care Provider [phone] Unknown Pcp, Non Rmg Primary Care Provider Unava ilable Reason for Visit * Reason Comments E-prescribing Refill Request Encounter Details Date Type Department Care Team (Late st Contact Info) Description 06/27/2018 Refill [facility] Adult Medicine [address] [place] [phone] Jeanine Mcpherson NP E-prescribing Refill Request Social [...] Route: 1 CAPSULE DAILY - Oral Order: [id number] . Faxed/E-prescribed medication renewal request(s) for Matilde [...] Description 07/21/2026 7:30 AM EDT Office Visit [facility]. Optometry [address] [place] [address] Agus Jacinto, OD [address] [place] [address] Return in about 1 year (around 07/17/2026) for OV-2, DFE. documented as of this encounter Visit Diagnoses Not on filedocumented in this encounter Care Teams Physical Education Department Chair Relationship Specialty Start Date End Date Vandana Epps MD PCP - General Internal Medicine 07/28/17 10/12/22 Unknown Pcp, Non Rmg PCP - General 10/13/22 documented as of this encounter
--- OUTSIDE RECORDS SUMMARY | 2025-11-26 09:03 | XMS_ITS | Encounter Summary ---
Author Organization [facility] Address [address] [place] [address] Care Team Providers Care Cnc Lathe Machine Operator Name Role Phone Brad Sloo MD Primary Care Provider [phone] Vandana Epps MD Primary Care Provider Unknown Pcp, Non Rmg Primary Care Provider Unava ilable Encounter Details Date Type Department Care Team (Late st Contact Info) Description 05/17/2017 Orders Only [facility] Adult Medicine [address] [place] [phone] Neena Crocker RAIL DOWELING MACHINE OPERATOR [facility] [address] [place] [phone] Social History Tobacco Use Types Packs/Day Years [...] Description 07/21/2026 7:30 AM EDT Office Visit [facility] Optometry [address] [place] [phone] Agus Jacinto, AYAAN [address] [place] [address] Return in about 1 year (around 07/17/2026) for OV-2, DFE. documented as of this encounter Visit Diagnoses Not on filedocumented in this encounter Care Teams Cnc Lathe Machine Operator Relationship Specialty Start Date End Date Brad Solo MD PCP - General 12/30/14 07/27/17 Vandana Epps MD PCP - General Internal Medicine 07/28/17 10/12/22 Unknown Pcp, Non Rmg PCP - General 10/13/22 documented as of this encounter
--- OUTSIDE RECORDS SUMMARY | 2025-11-26 09:03 | XMS_ITS | Encounter Summary ---
Author Organization [facility] Address [address] [place] [address] Care Team Providers Care Chucking Machine Set Up Operator Tool Name Role Phone Vandana Epps MD Primary Care Provider [phone] Unknown Pcp, Non [facility] Primary Care Provider Unava ilable Encounter Details Date Type Department Care Team (Late st Contact Info) Description 10/10/2017 Orders Only [facility] BOTTLED BEVERAGE INSPECTOR [address] [place] [address] [phone] Jory Womack MD [address] [place] [address] [phone] Social History Tobacco Use Types Packs/Day Years [...] Description 07/21/2026 7:30 AM EDT Office Visit [facility]. Optometry [address] [place] [phone] Agus Jacinto, OD [address] [place] [address] Return in about 1 year (around 07/17/2026) for OV-2, DFE. documented as of this encounter Procedures * Due to [facility] law, this organization might not be sharing negative HIV tests. Procedure Name Priority Date/Time Associated Diagnosis Comments CHLAMYDIA TRACHOMATIS/N. GONORRHOEAE (GC) RNA, TMA (URINE) Routine 10/10/2017 4:30 PM EST Screening for chlamydial disease documented in this encounter Results * Due to [facility] law, this organization might not be sharing negative HIV tests. * CHLAMYDIA TRACHOMATIS/N. GONORRHOEAE (GC) RNA, TMA (URINE) (10/10/2017 4:30 PM EST) Chlamydia trachomatis rRNA NOT DETECTED NOT DETECTED [facility] Neisseria Gonorrhoeae rRNA NOT DETECTED NOT DETECTED [facility] COMMENT SEE NOTE [facility] Comment: This test was performed using the APTIMA COMBO2 Assay ([employer] The analytical performance characteristics of this assay, when used to test [facility] specimens have been determined by [facility]. 10/10/2017 4:30 PM EST 10/10/2017 10:00 PM EST Narrative Resulting Agency Comment [id number] Jory Womack MD LABORATORY Final R esult Performing Organization Address City/State/[facility] de Phone Number [facility] [address] [place] [address] documented in this encounter Visit Diagnoses Diagnosis Screening for chlamydial disease Special screening examination for unspecified chlamydial disease documented in this encounter Care Teams Chucking Machine Set Up Operator Tool Relationship Specialty Start Date End Date Vandana Epps MD PCP - General Internal Medicine 07/28/17 10/12/22 Unknown Pcp, Non [facility] PCP - General 10/13/22 documented as of this encounter
--- OUTSIDE RECORDS SUMMARY | 2025-11-26 09:03 | XMS_ITS | Continuity of Care Document ---
Author Organization [facility] Address [address] [place] [address] Care Team Providers Care Exhibit Electrician Name Role Phone Unknown Pcp, Non Rmg Primary Care Provider Unava ilable Encounters Date Type Department Care Team Description 07/17/2025 Letter/Form NON FC SA NON FC UNK Provider, Unknown 07/17/2025 8:00 AM EDT Office Visit [facility] [address] [phone] Agus Jacinto, OD Encounter for eye exam (Primary Dx); History of retinal detachment; Aphakia, right 01/28/2025 Refill [facility] Visual Services [address] [place] [phone] Alexandra Cancino, OD E-prescribing Refill Request 11/19/2024 Refill [facility] [address] [phone] Agus Jacinto, AYAAN E-prescribing Refill Request 07/04/2024 8:30 AM EDT Office Visit [facility] [address] [phone] Agus Jacinto, OD History of retinal detachment 04/25/2024 Refill [facility] Visual Services [address] [place] [phone] Alexandra Cancino, OD Refill Request 04/10/[address] [facility] [address] [phone] Agus Jacinto, OD Appointment 01/12/[address] [facility] [facility] [address] [place] [address] Alexandra Cancino, OD E-prescribing Refill Request 12/22/2022 8:00 AM EST Office Visit [address] [address] Alexandra Cancino, OD Encounter for ophthalmic examination and evaluation (Primary Dx); Presbyopia; History of retinal detachment 06/22/[address] [facility] [address] [place] [address] Margaret Meza, Tech Medications 09/29/[address] [phone] Alexandra Cancino, OD E-prescribing Refill Request 04/22/2021 Travel 04/22/2021 1:20 PM EDT Office Visit [address] [address] Alexandra Cancino, OD Encounter for ophthalmic examination and evaluation (Primary Dx); Presbyopia; History of retinal detachment; Aphakia, right 12/03/2020 Travel 12/03/2020 1:45 PM EST Office Visit [facility] Pulmonary [address] [place] [phone] Eloy Pritchard MD Chronic cough (Primary Dx); Postnasal drip; Hiatal hernia; Non-allergic rhinitis 10/20/2020 Refill [facility] Adult Medicine [address] [place] [phone] Vandana Epps MD E-prescribing Refill Request 09/29/[address] [address] Alexandra Cancino, OD Eye Problem 09/16/2020 Refill [facility] Adult Medicine [address] [place] [phone] Vandana Epps MD E-prescribing Refill Request 09/13/2020 Minor Procedure/Test [facility] [address] [place] [address] [facility], Unknown Provider 09/03/[address] [phone] Vandana Epps MD E-prescribing Refill Request 06/24/[address] [phone] Vandana Epps MD E-prescribing Refill Request 04/30/[address] [address] Vandana Epps MD 04/16/2020 Travel 04/16/2020 9:15 AM EDT Office Visit [facility] Pulmonary [address] [facility] [address] [place] [address] Eloy Pritchard MD Chronic cough (Primary Dx); Postnasal drip; Hiatal hernia; Gastroesophageal reflux disease, esophagitis presence not specified 04/15/2020 Letter/Form [address] [address] Kadeem Steele MD 03/21/2020 Travel 03/05/2020 Travel 02/28/[address] [address] Vandana Epps MD Prescription Assistance 02/12/2020 Travel 02/11/[address] [address] Vandana Epps MD Error 02/11/[address] [address] Vandana Epps MD Refill Request ; Refill Request 02/09/[address] [address] Vandana Epps MD E-prescribing Refill Request 10/23/2019 Orders Only [address] [place] [address] Vandana Epps MD 10/23/2019 1:00 PM EST CPE - Comprehensive Physical Exam [address] [phone] Vandana Epps MD Routine history and physical examination of adult (Primary Dx); Screening for hyperlipidemia; Weight loss; Postnasal drip; Chronic cough; Gastroesophageal reflux disease, esophagitis presence not specified; Well adult exam 10/23/2019 2:00 PM EST Office Visit [facility] [employer] [address] [place] [phone] Diane Blanton MD Perimenopausal disorder (Primary Dx); Screening breast examination 10/18/2019 8:45 AM EST Consult (Initial) [facility] Pulmonary Entrance C [address] [place] [phone] Eloy Pritchard MD Cough (Primary Dx); Chronic cough; Postnasal drip; Non-allergic rhinitis; Hiatal hernia 10/17/2019 1:30 PM EST Radiology [facility] Xray [address] [place] [address] 10/16/[address] [address] Vandana Epps MD Other 09/12/2019 Minor Procedure/Test [facility] [address] [place], [place] [phone] [place] [address], Unknown Provider 09/12/2019 10:30 AM EDT Office Visit [address] [address] Vandana Epps MD Cough (Primary Dx); Need for vaccination; Need for immunization against influenza 08/27/[address] [phone] Vandana Epps MD Cough 08/22/[address] [phone] Vandana Epps MD E-prescribing Refill Request 08/04/[address] [phone] Vandana Epps MD E-prescribing Refill Request 06/14/[address] [address] Vandana Epps MD Results 06/13/2019 1:30 PM EDT Office Visit [address] [address] Vandana Epps MD Pharyngitis, unspecified etiology (Primary Dx); Cough 03/21/[address] [address] Vandana Epps MD E-prescribing Refill Request 02/26/2019 Consult (Initial) [facility]AB[facility]ATION UNSPEC Provider, Unknown 02/14/[address] [address] Vandana Epps MD 02/13/[address] [address] Vandana Epps MD E-prescribing Refill Request 02/08/2019 10:00 AM EDT Office Visit [facility] Visual Services [address] [place] [phone] Macho Heidy, OD Bilateral deafness; History of retinal detachment; Encounter for ophthalmic examination and evaluation; Disorder of refraction 02/05/[address] [address] Vandana Epps MD 01/18/2019 Consult (Initial) REHABILITATION UNSPEC Provider, Unknown 12/26/[address] [address] Vandana Epps MD Other 12/26/2018 12:30 PM [facility] Xray [address] [place] [address] Neck pain 12/26/2018 11:30 AM EST Office Visit [facility] Medicine [address] [place] [phone] Vandana Epps MD Left arm pain (Primary Dx); Neck pain; Chronic left shoulder pain 12/19/2018 11:30 AM EST Minor Procedure/Test [facility] Cardiology [address] [place] [phone] Joaquin Wooten MD Chest pain, unspecified type (Primary Dx) 12/13/2018 2:00 PM EST Radiology [facility] Xray [address] [place] [address] Left shoulder pain, unspecified chronicity 12/13/2018 Orders Only [facility] Orthopedic Surgery-Entrance C [address] [place] [address] Car Rodriguez DO 12/13/2018 1:00 PM EST Consult (Initial) [facility] Orthopedic Surgery-Entrance C [address] [place] [phone] Car Rodriguez, Left arm pain (Primary Dx); Chest wall pain; Left elbow pain; Left lateral epicondylitis 12/08/2018 Refill [facility] Medicine [address] [place] [phone] Vandana Epps MD Refill Request 11/07/2018 Refill [facility] Pulmonary [address] [facility] [address] [place] [address] Eloy Pritchard MD Refill Request 10/31/2018 Refill [facility] Medicine [address] [place] [phone] Vandana Epps MD Refill Request 10/24/[address] [address] Vandana Epps MD Results 10/18/2018 Orders Only [facility] Cardiology [address] [facility] [address] [place] [address] Batsheva Tamez, 10/18/2018 10:45 AM EST Radiology [facility] Xray [address] [place] [address] 10/18/2018 Orders Only [address] [address] Vandana Epps MD 10/18/[address] [address] Vandana Epps MD PT-1 Form 10/18/2018 10:00 AM EST Office Visit [facility] [employer] [address] [place] [phone] Diane Blanton MD Perimenopausal disorder (Primary Dx) 10/18/2018 8:30 AM EST CPE - Comprehensive Physical Exam [address] [address] Vandana Epps MD Routine history and physical examination of adult (Primary Dx); Chronic cough; Gastroesophageal reflux disease, esophagitis presence not specified; Chest pain, unspecified type; Weight loss; Chronic left shoulder pain; Screening for hypercholesterolemia; Immunization due 10/07/[address] [address] Vandana Epps MD E-prescribing Refill Request 10/06/[address] [address] Vandana Epps MD Refill Request 09/29/[address] [address] Vandana Epps MD 09/25/2018 Letter/Form INTERNAL MED UNSPEC Vandana Epps MD 09/11/2018 Minor Procedure/Test [facility]/[address] [address] [facility], Unknown Provider 09/05/[address] [address] Vandana Epps MD Referral Request 08/24/[address] [phone] Vandana Epps MD E-prescribing Refill Request 07/18/2018 Hospital/Inpatient [facility] [address] [place] [address] Johnny Potter MD 06/27/2018 Refill [facility] Medicine [address] [place] [phone] Jeanine Mcpherson NP E-prescribing Refill Request 06/14/2018 9:15 AM EDT Office Visit [address] [address] Vandana Epps MD Gastroesophageal reflux disease without esophagitis (Primary Dx) 04/10/2018 3:00 PM EDT Office Visit [facility] Pulmonary [address] [place] [address] Eloy Pritchard MD Chronic cough (Primary Dx); Postnasal drip; Non-allergic rhinitis 04/08/[address] [address] Jeanine Mcpherson NP E-prescribing Refill Request 03/11/[address] [address] Jeanine Mcpherson NP E-prescribing Refill Request 03/06/[address] [address] Vandana Epps MD Refill Request 03/03/[address] [address] Vinita Rai MD E-prescribing Refill Request 02/23/[address] [address] Vandana Epps MD Refill Request 02/13/[address] [address] Tavo Martinez MD E-prescribing Refill Request 02/03/2018 Refill [facility] Medicine [address] [place] [phone] Vandnaa Epps MD Refill Request ([facility]) 01/24/[address] [address] Vandana Epps MD Colonoscopy/EGD 01/19/[address] [address] Vandana Epps MD Refill Request 01/19/2018 Telephone [facility] Pulmonary [address] [place] [address] Eloy Pritchard MD Prescription Assistance (Refill); Refill Request 01/09/[address] [address] Vanadna Epps MD Refill Request 12/26/2017 Refill [place] [facility] [employer] [address] [place] [address] Diane Blanton MD Balodimos, Iphigenia MD; Refill Request 12/21/2017 Telephone [facility] Pulmonary [address] [place] [address] Eloy Pritchard MD FYI ; Prescription Assistance 12/21/[address] [address] Vandana Epps MD Refill Request 12/07/[address] [address] Vandana Epps MD Prescription Assistance 12/02/2017 Refill [facility] Pulmonary [address] [place] [address] Eloy Pritchard MD Refill Request 12/02/[address] [address] Vandana Epps MD Refill Request 10/12/2017 Orders Only [address] [address] Vandana Epps MD 10/12/2017 11:45 AM EST CPE - Comprehensive Physical Exam [address] [address] Vandana Epps MD Routine history and physical examination of adult (Primary Dx); Need for influenza vaccination; Back pain, unspecified back location, unspecified back pain laterality, unspecified chronicity; Abdominal pain, unspecified abdominal location; Screen for STD (sexually transmitted disease); Flu vaccine need; Screening for hyperlipidemia 10/10/2017 Orders Only [facility] [employer] [address] [place] [phone] Diane Blanton MD 10/10/2017 3:00 PM EST Office Visit [facility] [employer] [address] [place] [phone] Diane Blanton MD Perimenopausal disorder (Primary Dx); Screening for chlamydial disease 10/04/2017 3:00 PM EST [facility] [address] [place] [address] Eloy Pritchard MD Chronic cough (Primary Dx); Post-nasal drainage 09/20/2017 Refill [facility] Pulmonary [address] [place] [address] Eloy Pritchard MD Patient Questions ; Refill Request 09/15/2017 Orders Only [address] [address] Vandana Epps MD 09/08/2017 Minor Procedure/Test AUDIOLOGY UNSPECIFIED Provider, Unknown 09/08/2017 Minor Procedure/Test [facility]NAL MED UNSPEC Abdi Solo MD 09/08/[address] [address] Vandana Epps MD Other 09/08/2017 Minor Procedure/Test [facility] [address] [place] [address] [facility], Unknown Provider 09/07/[address] [address] Vandana Epps MD Referral Request 08/24/2017 Minor Procedure/Test [facility] [address] [place] [address] Abdi Solo MD [facility], Unknown Provider 08/18/[address] [address] Jeaneth Mcbride LPN Referral Request 08/02/2017 Refill [facility] [employer] [address] [place] [phone] Diane Blanton MD Balodimos, Iphigenia MD; Refill Request 07/12/[address] [address] Abdi Solo MD Refill Request 06/23/2017 2:00 PM EDT Office Visit [facility] Pulmonary [address] [place] [address] Eloy Pritchard MD Postnasal drip (Primary Dx); Cough 06/17/[address] [address] Abdi Solo MD Results 06/14/2017 Orders Only [address] [address] Abdi Solo MD 06/14/2017 10:45 AM EDT Office Visit [address] [address] Abdi Solo MD Multiple joint pain (Primary Dx); Chronic cough; Gastroesophageal reflux disease, esophagitis presence not specified; Deafness, bilateral; Varicose veins of both lower extremities; Insomnia, unspecified type; Anxiety; Post-nasal drainage 05/17/2017 Orders Only [address] [place] [address] Neena Crocker LPN 05/13/2017 12:45 PM EDT Consult (Initial) [facility] Pulmonary [address] [place] [address] Eloy Pritchard MD Postnasal drip (Primary Dx); Cough 04/18/2017 Home Visit [facility] UNSPEC Provider, Unknown 04/18/2017 12:30 PM EDT Office Visit [address] [address] Karen Luciano NP Acute URI (Primary Dx); Cough; Acute pharyngitis, unspecified etiology; Allergic rhinitis, unspecified allergic rhinitis trigger, unspecified rhinitis seasonality 04/18/[address] [address] Abdi Solo MD Sore Throat; Cough 04/12/2017 1:15 PM EDT Office Visit [address] [address] Jeanine Mcpherson NP Upper respiratory tract infection, unspecified type (Primary Dx) 03/29/[address] [phone] Abdi Solo MD Prescription Assistance 03/08/2017 Letter/Form INTERNAL MED UNSPEC Abdi Solo MD 02/24/2017 11:00 AM EDT Radiology [facility] Ultrasound [address] [place] [address] 02/24/2017 11:30 AM EDT Office Visit [facility] [employer] [address] [place] [phone] Diane Blanton MD Perimenopausal disorder (Primary Dx) 02/18/2017 9:45 AM EDT Office Visit [address] [address] Abdi Solo MD Chronic cough (Primary Dx); Gastroesophageal reflux disease, esophagitis presence not specified; Deafness, bilateral; Insomnia, unspecified type; Varicose veins of both lower extremities; Gastroesophageal reflux disease without esophagitis; Vitamin D deficiency; Polyp of colon, unspecified part of colon, unspecified type; Non-allergic rhinitis; Anxiety 01/18/2017 Telephone [facility] [address] [place] [phone] Diane Blanton MD Balodimos, Iphigenia MD; Care Coordination Communication 01/07/2017 Refill [facility] Medicine [address] [place] [phone] Abdi Solo MD Refill Request 12/30/2016 Telephone [facility] Adult Medicine [address] [place] [phone] Abdi Solo MD Care Coordination Communication 12/30/2016 11:45 AM EST Office Visit [facility] Visual Services [address] [place] [phone] Heidy Pritchard, AYAAN Examination of eyes and vision (Primary Dx); History of retinal detachment 12/29/2016 Letter/Form INTERNAL MED UNSPEC Abdi Solo MD 12/24/2016 Minor Procedure/Test GASTRO UNSPECIFIED Johnny Potter MD 12/13/2016 Telephone [facility] [employer] [address] [place] [phone] Diane Blanton MD Balodimos, Iphigenia MD; Appointment 11/02/2016 Orders Only [facility] Otolaryngology [address] [address] Rebecca Hollins LPN Medications 11/02/2016 Telephone [facility] Otolaryngology [address] [address] Tami Doyle MD Refill Request 11/02/2016 Telephone [facility] Podiatry Entrance C [address] [place] [phone] Ирина Taylor DPM Prescription Assistance 10/29/[address] [phone] Abdi Solo MD Referral Request 10/29/[address] [phone] Abdi Solo MD Refill Request ; Prescription Assistance 10/29/[address] [phone] Abdi Solo MD Vision Screening 10/29/2016 10:30 AM EST Consult (Initial) [facility] Otolaryngology Entrance C [address] [place] [address] Tami Doyle MD Cough (Primary Dx); Gastroesophageal reflux disease, esophagitis presence not specified; Dyspnea, unspecified type 10/26/[address] [phone] Abdi Solo MD Refill Request 10/06/2016 Orders Only [facility] [employer] [address] [place] [phone] Cintia Gómez NP 10/06/2016 1:15 PM EST Office Visit [facility] [employer] [address] [place] [phone] Cintia Gómez NP Encounter for gynecological examination without abnormal finding (Primary Dx); Dysmenorrhea; Perimenopause 09/09/2016 2:15 PM EDT Office Visit [facility] Family Practice [address] [place] [address] Tavo Martinez MD Cough (Primary Dx) 09/07/2016 Office Visit [facility] UNSPECIFIED Unknown Pcp, Non Rmg 09/07/[address] [phone] Abdi Solo MD Cough 09/06/[address] [phone] Abdi Solo MD Refill Request 09/01/[address] [phone] Jeaneth Mcbride LPN Refill Request 09/01/[address] [phone] Abdi Solo MD Medication Check; Return Call 08/24/2016 Orders Only [address] [address] Abdi Solo MD 08/23/2016 Orders Only [facility] [employer] [address] [place] [phone] Diane Blanton MD 08/20/[address] [address] Abdi Solo MD Prescription Assistance 08/19/[address] [phone] Abdi Solo MD Labs/orders 08/19/[address] [phone] Abdi Solo MD Prescription Assistance 08/19/2016 Orders Only [address] [address] Abdi Solo MD 08/19/2016 1:00 PM EDT Office Visit [address] [phone] Abdi Solo MD Routine history and physical examination of adult (Primary Dx); Cough; Gastroesophageal reflux disease without esophagitis; Colon polyps; Post-nasal drainage; Vitamin D deficiency; Anxiety; Deafness, bilateral; Screening cholesterol level; Need for immunization against influenza 08/18/2016 Orders Only [facility] [address] [place] [address] [facility], Unknown Provider 08/18/2016 Minor Procedure/Test INTERNAL MED UNSPEC Abdi Solo MD 07/26/2016 Minor Procedure/Test AUDIOLOGY UNSPECIFIED Provider, Unknown 06/08/2016 Telephone [facility] Medicine [address] [place] [phone] Abdi Solo MD Referral Request 04/08/[address] [address] Abdi Solo MD Refill Request 03/05/2016 Orders Only NON FC SA [address] [address] Xavi Ojeda PA 02/18/2016 Consult (Initial) GEN VAS UNSPECIFIED Trinity Phillip NP 01/26/[address] [phone] Abdi Solo MD Vomiting ; Cough ; Congestion; FYI 01/07/[address] [address] Abdi Solo MD Refill Request 12/30/[address] [address] Abdi Solo MD Refill Request ([facility]) 12/04/[address] [address] Abdi Solo MD Refill Request 11/19/2015 Consult (Initial) [address] [address] Trinity Phillip, ESTELA 11/19/2015 9:30 AM EST Office Visit [facility] Orthopedic Surgery [address] [place] [phone] Xavi Ojeda PA Nondisplaced fracture of third metatarsal bone of left foot with routine healing, subsequent encounter (Primary Dx) 11/12/2015 Telephone [facility] Orthopedic Surgery [address] [place] [phone] Xavi Ojeda PA Letter/form Request (JL) 11/10/2015 Surgery/Major Procedure GEN VAS UNSPECIFIED Mack Mccarthy 11/05/2015 3:00 PM EST Office Visit [address] [address] Buffy Capps NP Dysphagia, unspecified dysphagia (Primary Dx); Cough 10/30/2015 Orders Only NON FC [facility] [address] [place] [address] Sv, Unknown Provider 10/30/[address] [phone] Abdi Solo MD Imaging Study 10/30/2015 11:00 AM EST Office Visit [facility] Orthopedic Surgery [address] [phone] Noris Cruz PA Nondisplaced fracture of third metatarsal bone of left foot with routine healing, subsequent encounter (Primary Dx) 10/29/[address] [address] Abdi Solo MD Information 10/28/2015 [facility] Only [facility] [address] [place] [phone] John Oviedo MD 10/22/2015 Minor Procedure/Test INTERNAL MED UNSPEC Abdi Solo MD 10/21/2015 Consult (Initial) GEN VAS UNSPECIFIED Mack Mccarthy A. 10/15/[address] [address] Abdi Solo MD Imaging Study 10/15/2015 Orders Only [facility] Medicine [address] [place] [phone] Buffy Capps NP 10/15/2015 1:30 PM EST Consult (Initial) [facility] Orthopedic Surgery [address] [facility] [address] [place] [phone] Noris Cruz PA Closed nondisplaced fracture of third metatarsal bone of left foot, initial encounter (Primary Dx) 10/13/[address] [phone] Abdi Solo MD Referral Request 10/10/[address] [phone] Abdi Solo MD Information 10/09/[address] [phone] Neena Crocker, CURRICULUM DEVELOPMENT MANAGER Results 10/06/2015 Home Visit JHON GANN UNSPEC Provider, Unknown 10/06/2015 1:30 PM EST Radiology [facility] Xray [address] [place] [address] Acute foot pain, left 10/06/2015 12:45 PM EST Office Visit [address] [phone] Karen Luciano NP Acute foot pain, left (Primary Dx) 10/06/[address] [phone] Abdi Solo MD Foot Pain 09/23/2015 10:45 AM EDT Radiology [facility] Xray [address] [place] [address] Cough 09/23/2015 10:00 AM EDT Office Visit [address] [phone] Buffy Capps NP Cough (Primary Dx); Need for influenza vaccination 09/17/[address] [phone] Abdi Solo MD 09/09/2015 Consult (Initial) GEN VAS UNSPECIFIED Mack Mccarthy 09/02/2015 Telephone [facility] Allergy [address] [place] [phone] John Oviedo MD Return Call 09/01/2015 Orders Only [facility] Allergy [address] [place] [phone] John Oviedo MD 09/01/2015 1:40 PM EDT Office Visit [facility] Allergy [address] [place] [phone] John Oviedo MD Non-allergic rhinitis (Primary Dx); Gastroesophageal reflux disease without esophagitis; Post-nasal drainage 08/27/[address] [phone] Abdi Solo MD Refill Request ([facility]) 08/14/[address] [phone] Abdi Solo MD 08/13/2015 Orders Only [facility] Allergy [address] [place] [phone] John Oviedo MD 08/13/[address] [phone] Abdi Solo MD Information 08/13/2015 1:40 PM EDT Office Visit [facility] Allergy [address] [place] [phone] John Oviedo MD PND (post-nasal drip) (Primary Dx); Sinus congestion; Allergic rhinitis due to pollen; Gastroesophageal reflux disease, esophagitis presence not specified 08/07/2015 Letter/Form INTERNAL MED UNSPEC Abdi Solo MD 08/06/[address] [phone] Abdi Solo MD Letter/form Request 08/06/[address] [phone] Abdi Solo MD Refill Request ([facility] [address]) 07/28/[address] [phone] Abdi Solo MD Other 07/16/[address] [phone] Abdi Solo MD Unable To Schedule 07/10/2015 Consult (Initial) GEN VAS UNSPECIFIED Provider, Unknown 07/02/2015 Minor Procedure/Test INTERNAL MED UNSPEC Abdi Solo MD 06/30/2015 Refill [facility] MANAGER SPECIAL EVENTS [address] [place] [phone] Diane Blanton MD Results 06/26/2015 Orders Only [facility] MANAGER SPECIAL EVENTS [address] [place] [phone] Diane Blanton MD 06/26/2015 2:00 PM EDT Office Visit [facility] MANAGER SPECIAL EVENTS [address] [place] [phone] Diane Blanton MD Routine gynecological examination (Primary Dx); Vaginal discharge; Dysmenorrhea; Dysuria; Screening breast examination 06/26/2015 1:00 PM EDT CPE - Comprehensive Physical Exam [address] [phone] Abdi Solo MD Routine history and physical examination of adult (Primary Dx); Deafness, unspecified laterality; Sinus congestion; Varicose veins; Insomnia; Anxiety; Vitamin D deficiency; Post-nasal drainage; Gastroesophageal reflux disease without esophagitis; Colon polyps; Acute right eye pain; Environmental allergies 06/24/2015 Consult (Initial) GEN VAS UNSPECIFIED [facility], Unknown Provider 06/20/2015 Consult (Initial) REHABILITATION UNSPEC Provider, Unknown 06/12/2015 Surgery/Major Procedure GEN VAS UNSPECIFIED Mack Mccarthy 06/10/[address] [phone] Abdi Solo MD Refill Request ; Return Call 06/04/2015 9:15 AM EDT Office Visit [address] [phone] Buffy Capps NP Neck pain (Primary Dx); Knee pain, unspecified laterality 06/02/[address] [phone] Abdi Solo MD Results 05/16/2015 Hospital/Inpatient [facility] [address] [place] [address] Provider, Unknown 05/15/[address] [phone] Abdi Solo MD Refill Request ([facility]) 05/05/[address] [phone] Abdi Solo MD Results 04/30/2015 2:45 PM EDT Radiology [facility] [address] [id number] Left knee pain (Primary Dx) 04/30/2015 2:00 PM EDT Office Visit [address] [phone] Buffy Capps NP Left knee pain (Primary Dx) 04/14/[address] [phone] Abdi Solo MD Other ; Provider (ABDI SOLO MD (Medical Doctor,Internal Medicine A-[id number]) [facility] ([id number])) 04/10/2015 Office Visit [address] [phone] Abdi Solo MD Abnormal weight gain; Benign neoplasm of colon; Other allergy, other than to medicinal agents; Unspecified hearing loss; Pain in joint, lower leg; Disturbance of skin sensation; Asymptomatic varicose veins; Cough; Anxiety state, unspecified; Abdominal pain, epigastric; Unspecified sinusitis (chronic); Insomnia, unspecified; Other diseases of nasal cavity and sinuses(478.19); Esophageal reflux; Unspecified vitamin D deficiency 04/10/[address] [phone] Abdi Solo MD Medication Problem ; Provider (ABDI SOLO MD (Medical Doctor,Internal Medicine A-[id number]) [facility] ([id number])) 04/03/[address] [phone] Abdi Solo MD Refill Request (Arturo Patton [facility]); Provider (ABDI SOLO MD (Medical Doctor,Internal Medicine A-[id number]) [facility] ([id number])) 03/25/2015 Consult (Initial) PODIATRY UNSPECIFIED Loretz, Mary C. 03/25/2015 Letter/Form NON FC SA NON FC UNK Lorhilary Mary C. Other unknown and unspecified cause of morbidity or mortality 02/05/[address] [phone] Abdi Solo MD Refill Request (Arturo Patton); Provider (ABDI SOLO MD (Medical Doctor,Internal Medicine A-[id number]) [facility] (-[id number])) 01/15/2015 Orders Only NON FC SA FC UNK Abdi Solo MD 01/01/2015 Consult (Initial) PODIATRY UNSPECIFIED Loretz, Mary C. 01/01/2015 Letter/Form NON FC SA NON FC UNK Lorhilary, Mary C. Other unknown and unspecified cause of morbidity or mortality 12/18/[address] [phone] Unknown Pcp, Non Rmg Medication Problem ; Provider (NON ATRIUS PCP (Internal Medicine A-4) [facility] ([id number])) 12/18/[address] [phone] Unknown Pcp, Non Rmg 12/17/2014 Letter/Form NON FC SA NON FC UNK Provider, Unknown 12/17/[address] [phone] Unknown Pcp, Non Rmg Refill Request (Arturo Patton); Provider (NON ATRIUS PCP (Internal Medicine A-4) [facility] ([id number])) 12/17/[address] [phone] Unknown Pcp, Non Rmg Patient Questions ; Medication Problem ; Provider (NON ATRIUS PCP (Internal Medicine A-4) [facility] ([id number])) 11/20/2014 Letter/Form NON FC SA NON FC UNK Provider, Unknown 11/20/[address] [phone] Unknown Pcp, Non Rmg 10/16/[address] [phone] Unknown Pcp, Non Rmg Other ; Provider (NON ATRIUS PCP (Internal Medicine A-4) [facility] ([id number])) 10/14/[address] [phone] Unknown Pcp, Non Rmg Refill Request (Anna); Provider (NON ATRIUS PCP (Internal Medicine A-4) [facility] (AD-[id number])) 2014 Letter/Form [address] [phone] Abdi Solo MD 09/11/2014 Letter/Form NON FC SA NON FC UNK Provider, Unknown 09/11/[address] [phone] Bonnie Patel LPN Other ; Provider (BONNIE PATEL LPN (Licensed Practical Nurse,Internal Medicine A-[id number]) [facility] ([id number])) 09/11/[address] [phone] Abdi Solo MD Return Call ; Provider (ABDI SOLO MD (Medical Doctor,Internal Medicine A-[id number]) [facility] ([id number])) 09/11/2014 Orders Only [facility] Laboratory Services [address] [place] [phone] Abdi Solo MD 09/11/2014 Office Visit [address] [phone] Abdi Solo MD Dysuria; Unspecified vitamin D deficiency; Other allergy, other than to medicinal agents; Need for prophylactic vaccination and inoculation against influenza; Anxiety state, unspecified; Esophageal reflux 09/05/2014 Orders Only NON FC SA FC UNK Abdi Solo MD 08/30/2014 Minor Procedure/Test OPHTHAL UNSPECIFIED Provider, Unknown 08/22/2014 Letter/Form [facility] Pediatrics [address] [place] [phone] Abdi Solo MD 07/23/2014 Letter/Form [facility] Medicine [address] [place] [phone] Abdi Solo MD 06/24/2014 Letter/Form NON FC SA NON FC UNK Provider, Unknown 06/24/2014 Abstract [facility] Medicine [address] [place] [phone] Unknown Pcp, Non Rmg 06/20/2014 Telephone [facility] MANAGER SPECIAL EVENTS [address] [place] [phone] Diane Blanton MD Return Call ; Provider (DIANE BLANTON MD (Medical Doctor,Obstetrics and Gynecology A-[id number]) [facility] Obstetrics and Gynecology ([id number])) 06/18/2014 Telephone [facility] Medicine [address] [place] [phone] Abdi Solo MD Other ; Provider (ABDI SOLO MD (Medical Doctor,Internal Medicine A-[id number]) [facility] ([id number])) 06/17/2014 Telephone [facility] MANAGER SPECIAL EVENTS [address] [place] [phone] Diane Blanton MD Other ('S JAZZY #); Provider (DIANE BLANTON MD (Medical Doctor,Obstetrics and Gynecology A-[id number]) [facility] Obstetrics and Gynecology (AD-[id number])) 06/17/2014 Telephone [facility] MANAGER SPECIAL EVENTS [address] [place] [phone] Diane Blanton MD Other ; Provider (DIANE BLANTON MD (Medical Doctor,Obstetrics and Gynecology A-[id number]) [facility] Obstetrics and Gynecology (AD-[id number])) 06/17/2014 Refill [facility] MANAGER SPECIAL EVENTS [address] [place] [phone] Diane Blanton MD Other ; Provider (DIANE BLANTON MD (Medical Doctor,Obstetrics and Gynecology A-[id number]) [facility] Obstetrics and Gynecology (AD-[id number])) 06/13/2014 Telephone [facility] Adult Medicine [address] [place] [phone] Abdi Solo MD Other ; Provider (ABDI SOLO MD (Medical Doctor,Internal Medicine A-[id number]) [facility] Medicine (AD-[id number])) 06/13/2014 Orders Only [facility] Adult Medicine [address] [place] [phone] Abdi Solo MD 06/12/2014 CPE - Comprehensive Physical Exam [facility] MANAGER SPECIAL EVENTS [address] [place] [phone] Diane Blanton MD Routine gynecological examination; Other screening breast examination; Other screening mammogram; Screening for malignant neoplasm of the cervix; Other disorder of menstruation and other abnormal bleeding from female genital tract; Unspecified symptom associated with female genital organs 06/12/2014 Office Visit [facility] Medicine [address] [place] [phone] Abdi Solo MD Abdominal pain, epigastric; Esophageal reflux; Other diseases of nasal cavity and sinuses(478.19); Cough; Pain in joint, lower leg; Special screening for malignant neoplasms, colon; Need for prophylactic vaccination with combined shgakjxzwh-wcdiwkh-qn rtussis (DTP) vaccine; Pain in joint, multiple sites; Unspecified vitamin D deficiency; Screening examination for pulmonary tuberculosis 06/06/2014 Letter/Form [facility] MANAGER SPECIAL EVENTS [address] [place] [phone] Diane Blanton MD 05/23/2014 Letter/Form [address] [phone] Abdi Solo MD 03/19/2014 Letter/Form [address] [phone] Abdi Solo MD 03/19/[address] [phone] Abdi Solo MD 03/07/[address] [phone] Abdi Solo MD Other ; Provider (ABDI SOLO MD (Medical Doctor,Internal Medicine A-53775) [facility] (AD-[id number])) 03/06/2014 Orders Only [address] [phone] Abdi Solo MD Medications 03/06/2014 CPE - Comprehensive Physical Exam [address] [phone] Abdi Solo MD Breast screening, unspecified; Pain in joint, multiple sites; Screening for lipoid disorders; Anxiety state, unspecified; Unspecified hearing loss; Asymptomatic varicose veins; Esophageal reflux; Chest pain, unspecified; Need for prophylactic vaccination against Streptococcus pneumoniae (pneumococcus); Routine general medical examination at a health care facility 03/05/[address] [phone] Abdi Solo MD Other (CONFIRM APPT); Provider (ABDI SOLO MD (Medical Doctor,Internal Medicine A-[id number]) [facility] (AD-[id number])) 01/21/[address] [phone] Abdi Solo MD 01/18/[address] [phone] Abdi Solo MD Other (INFORMATION NEEDED); Provider (ABDI SOLO MD (Medical Doctor,Internal Medicine A-[id number]) [facility] (-[id number])) 01/10/[address] [phone] Abdi Solo MD Other ; Provider (ABDI SOLO MD (Medical Doctor,Internal Medicine A-[id number]) [facility] (-[id number])) 01/08/[address] [phone] Abdi Solo MD Other (HPC FORM); Medication Problem ; Provider (ABDI SOLO MD (Medical Doctor,Internal Medicine A-[id number]) [facility] (AD-[id number])) 01/08/[address] [phone] Abdi Solo MD Refill Request ([facility] [address] [place] [address] RD AT [facility] [phone]); Provider (ABDI SOLO MD (Medical Doctor,Internal Medicine A-[id number]) [facility] (-[id number])) 12/25/2013 Orders Only [address] [phone] Abdi Solo MD 12/21/[address] [phone] Abdi Solo MD Return Call ; Provider (ABDI SOLO MD (Medical Doctor,Internal Medicine A-[id number]) [facility] (-[id number])) 12/13/2013 Letter/Form NON FC SA NON FC UNK Provider, Unknown 12/13/2013 Office Visit [address] [phone] Abdi Solo MD Asymptomatic varicose veins; Abdominal pain, epigastric; Anxiety state, unspecified; Insomnia, unspecified; Other diseases of nasal cavity and sinuses; Unspecified hearing loss; Pain in limb 12/07/[address] [phone] Abdi Solo MD Other ; Provider (ABDI SOLO MD (Medical Doctor,Internal Medicine A-[id number]) [facility] (AD-[id number])) 11/29/2013 Home Visit [address] [phone] Abdi Solo MD 11/29/2013 [employer] T[employer] [address] [phone] Abdi Solo MD Other unknown and unspecified cause of morbidity or mortality 11/22/2013 Letter/Form [address] [phone] Abdi Solo MD 10/30/[address] [phone] Abdi Solo MD [facility] F/U ; Provider (ABDI SOLO MD (Medical Doctor,Internal Medicine A-[id number]) [facility] ([id number])) 04/25/2013 Minor Procedure/Test OPHTHAL UNSPECIFIED Provider, Unknown [...] EACH EYE TWICE DAILY. 15 mL 5 5 10/25/20 26 Active Active Problems Problem Noted Date Diagnosed [...] GERD (gastroesophageal reflux disease) 03/06/2014 04/10/2015 Immunizations Immunization Administration Dates Next Due Fluzone Vac, 3 Yrs & > 08/19/2016,09/23/2015 Influenza,injectable,MDCK, Prsrv Fr,Quad 022,08/21/2020 Influenza,injectable,quad,Prsrv Fr 08/28/2021,,10/18/2018 Influenza,injectable,quad,preservative 7,09/11/2014 Influenza,recombinant,trivalent,PF(Flublok) 08/29 PPD/TST (Tuberculin Skin Test) 06/12/2014 PPV23 (Pneumovax) 03/06/2014 Tdap 03/28/2025 Tdap - 06/12/2014 influenza,seasonal,trivalent ,PF (Fluzone, Fluarix, Flulaval) 10/02/2024 Family History Medical History Relation Name Comments Diabetes Mother Diabetes - Type II Osteoporosis/Bone Disorder Mother Osteoporosis/Bone Disorder Sister Relation Name Status Comments Father Mother Alive Sister Alive Social History Smoking Status as of 11/26/2025 Tobacco Use Types Packs/Day Years Used Date [...] 82 12/03/2020 1:57 PM EST Temperature 36.9 C (98.4 F) 10/23/2019 1:15 PM EST Respiratory Rate 16 10/04/2017 3:08 PM EST [...] Description 07/21/2026 7:30 AM EDT Office Visit [facility] [address] [place] [address] Agus Jacinto, OD [address] [place] [address] Return in about 1 year (around 07/17/2026) for OV-2, DFE. Procedures * Due to [place] state law, this organization might not be [...] Acute pharyngitis, unspecified etiology US TRANSVAGINAL (FOR MANAGER SPECIAL EVENTS DEPT USE ONLY) Routine 02/24/2017 11:29 AM [...] due to pollen ALLERGEN (IGE), CONV. RAST-EDWINA ELIZALDEARK (672) Routine 08/13/2015 2:50 PM EDT Sinus [...] TEST/PROCEDURE, UNSPECIFIED 04/25/2013 Results * Due to [place] state law, this organization might not be sharing negative HIV tests. * MYLES BILATERAL SCREENING DIGITAL MAMMOGRAM WITH CK (09/15/2020 2:22 PM EDT) Only the most recent of5 resultswithin the time period is included. Anatomical Region Laterality Modality Other 09/15/2020 2:22 PM EDT Narrative 09/15/2020 2:22 PM EDT EXAMINATION MYLES Bilateral Screening Digital Mammogram With Ck. INDICATION Magda Will is a 54 y.o. female and is [...] with a subsequent mammography target date. BI-RADS ATLAS category (overall): 1 Negative DENSE BREAST RECOMMENDATIONS: The patient has dense breast tissue shown on mammography. Per [employer] Appropriateness Criteria for Breast Cancer Screening (https://acsearch.acr.org/docs/46268/Narrative/) patient may benefit from tomosynthesis on future mammography and supplemental imaging with automated breast ultrasound (ABUS) or breast MRI depending on risk factors. Automated Breast Ultrasound (ABUS) is available at [facility]. To schedule a patient, you can either enter an ABUS order into [facility] (type ABUS), call [facility] at [phone], or fax an external order to [phone]. Breast MRI is available at [facility] at [facility] ([facility], [facility], and [facility]). To schedule, enter a breast MRI order into [facility] (MRI Breast Bilateral W WO contrast and 3DCAD), call [phone] or [phone], or fax [phone]. Procedure Note [facility], Unknown Provider - 09/15/2020 EXAMINATION MYLES Bilateral Screening Digital Mammogram With Ck. INDICATION Magda Will is a 54 y.o. female and is seen for: [facility] Bilateral Screening Digital Mammogram With Ck. R2 [...] of Radiology Appropriateness Criteria for Breast Cancer Screening(https://acsearch.acr.org/docs/01501/Narrative/) patient may benefit fromtomosynthesis on future mammography and supplemental imaging with automated breast ultrasound(ABUS) or breast MRI depending on risk factors. Automated Breast Ultrasound (ABUS) is available at [facility]. To schedule a patient, you can either enter anABUS order into [facility] (type ABUS), call [facility] at [phone], or fax an external order to [phone]. Breast MRI is available at [facility] ([facility], [facility], and[facility]). To schedule, enter a breast MRIorder into [facility] (MRI Breast Bilateral W WO contrast and 3DCAD), call [phone] or [phone], orfax [phone]. Vandana Epps MD IM[facility]ING[facility] Final Result * CBC INCLUDES [...] PM EST 10/23/2019 2:41 PM EST Narrative [facility] - 10/23/2019 3:06 PM EST Patient's primary care provider is: N/A Testing performed at: [facility], [address] [place] [address], [id number], Ferry Captain: Seth Gutierrez MD Vandana Epps MD LAB SAME DAY RESULT Final Resu lt Performing Organization Address [facility] Co de Phone Number [address] [address] DIRECTOR Seth Gutierrez MD * THYROID STIMULATING HORMONE (TSH) WITH FREE T4 REFLEX, SERUM (10/23/2019 2:41 PM EST) Only the most recent of3 resultswithin the time period is included. TSH (Thyrotropin) 2.41 0.40 - 4.50 uIU/ml [facility] 10/23/2019 2:41 PM EST 10/23/2019 2:41 PM EST Narrative [facility] - 10/23/2019 5:01 PM EST Patient's primary care provider is: N/A Testing performed at: [facility], [address] [place] [address], [id number], Ferry Captain: Seth Gutierrez MD us Vandana Epps MD LABORATORY Final Result Performing Organization Address [facility] de Phone Number [address] [address] DIRECTOR Seth Gutierrez MD * (ABNORMAL) LIPID PANEL WITH REFLEX TO DIRECT LDL (10/23/2019 2:41 PM EST) Only the most recent of4 resultswithin the time period is included. Cholesterol 165 <200 mg/dL [facility] Triglyceride 137 <150 mg/dL [facility] HDL Cholesterol 40(L) >40 mg/dL [facility] Comment: NCEP GUIDELINES Desirable >60 mg/dL Borderline 40-59 mg/dL Undesirable <40 mg/dL LDL Cholesterol 98 <130 mg/dL [facility] CHOL/HDL Ratio 4 0 - 5 CALC [facility] 10/23/2019 2:41 PM EST 10/23/2019 2:41 PM EST Narrative [facility] - 10/23/2019 5:01 PM EST Patient's primary care provider is: N/A Testing performed at: [facility], [address] [place] [address], [address], Ferry Captain: Seth Gutierrez MD Vandana Epps MD LABORATORY Final Result [address] [address] DIRECTOR Seth Gutierrez MD * COMPREHENSIVE METABOLIC [...] GROUP Comment:If the patient is Af rican [place], please multiply result by 1.210 10/23/2019 2:41 PM EST 10/23/2019 2:41 PM EST Narrative [facility] - 10/23/2019 5:01 PM EST Patient's primary care provider is: N/A Testing performed at: [facility], [address] [place] [address], [id number], Ferry Captain: Seth Gutierrez MD Vandana Epps MD LABORATORY Final Result [address] [address] DIRECTOR Seth Gutierrez MD * (ABNORMAL) PULMONARY FUNCTION TEST (10/18/2019 12:00 AM EST) [facility] Pulmonary Function Test Report Test Interpretation Office spirometry performed on 10/18/2019: [...] 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 SPIROMETRY +/- Predicted Range Pre-Bronchodilat or BRONCHODILATOR Mean LL UL Actual %Pred FVC 2.73 1.88 3.59 1.81 (A) 66 FEV 0.5 1.71 0.85 2.57 1.10 65 FEV1 2.03 1.25 2.80 1.46 (N) 72 FEV1/FVC 75 63 81 (N) 109 FET 2.12 ZCV48-06 2.50 1.04 3.95 1.31 53 FEF25 5.03 2.31 7.75 3.09 61 FEF50 1.88 0.28 3.49 1.42 76 FEF75 1.15 0.08 2.22 0.70 61 PEFR 5.34 2.48 8.19 3.99 75 PIFR 3.56 1.92 54 FEF50/FIF50 0.74 FIVC 2.73 1.88 3.59 1.40 51 COMPAS SPIROMETRY SYSTEM FVC - Pre-Bronchodilato r 1.81(A) 1.88 - 3.59 L nPickerAS SPIROMETRY SYSTEM FVC - Lower Limit Predicted 1.88 L nPickerAS SPIROMETRY SYSTEM FVC - Mean Predicted 2.73 L nPickerAS SPIROMETRY SYSTEM FVC - Upper Limit Predicted 3.59 L nPickerAS SPIROMETRY SYSTEM FVC - % Predicted Pre-Bronchodilato r 66 % [facility] FEV0.5 - Pre-Bronchodilato r 1.10 0.85 - 2.57 L [facility] FEV0.5 - Lower Limit Predicted 0.85 L [facility] FEV0.5 - Mean Predicted 1.71 L [facility] FEV0.5 - Upper Limit Predicted 2.57 L [facility] FEV0.5 - % Predicted Pre-Bronchodilato r 65 % [facility] FEV1 - Pre-Bronchodilato r 1.46 1.25 - 2.80 L [facility] FEV1 - Lower Limit Predicted 1.25 L [facility] FEV1 - Mean Predicted 2.03 L [facility] FEV1 - Upper Limit Predicted 2.80 L [facility] FEV1 - % Predicted Pre-Bronchodilato r 72 % [facility] FEV1/FVC - Pre-Bronchodilato r 81 63- % [facility] FEV1/FVC - Lower Limit Predicted 63 % [facility] FEV1/FVC - Mean Predicted 75 % [facility] FEV1/FVC - % Predicted Pre-Bronchodilato r 109 % [facility] [id number] - Pre-Bronchodilato r 1.31 1.04 - 3.95 L/s [facility] [id number] - Lower Limit Predicted 1.04 L/s [facility] [id number] - Mean Predicted 2.50 L/s [facility] HNZ06-68 - Upper Limit Predicted 3.95 L/s [facility] HVP16-98 - % Predicted Pre-Bronchodilato r 53 % [facility] FEF25 - Pre-Bronchodilato r 3.09 2.31 - 7.75 L/s [facility] FEF25 - Lower Limit Predicted 2.31 L/s [facility] FEF25 - Mean Predicted 5.03 L/s [facility] FEF25 - Upper Limit Predicted 7.75 L/s [facility] FEF25 - % Predicted Pre-Bronchodilato r 61 % [facility] FEF50 - Pre-Bronchodilato r 1.42 0.28 - 3.49 L/s [facility] FEF50 - Lower Limit Predicted 0.28 L/s [facility] FEF50 - Mean Predicted 1.88 L/s [facility] FEF50 - Upper Limit Predicted [...] Pre-Bronchodilato r 3.99 2.48 - 8.19 L/s [facility] PEFR - Lower Limit Predicted 2.48 L/s [facility] PEFR - Mean Predicted 5.34 L/s [facility] PEFR - Upper Limit Predicted 8.19 L/s [facility] PEFR - % Predicted Pre-Bronchodilato r 75 % [facility] FEF50/FIF50 - Pre-Bronchodilato r 0.74 [facility] FET - Pre-Bronchodilato r 2.12 s [facility] FIVC - Pre-Bronchodilato r 1.40 1.88 - 3.59 L [facility] FIVC - Lower Limit Predicted 1.88 L [facility] FIVC - Mean Predicted 2.73 L [facility] FIVC - Upper Limit Predicted 3.59 L [facility] FIVC - % Predicted Pre-Bronchodilato r 51 % [facility] PIFR - Pre-Bronchodilato r 1.92 L/s [facility] PIFR - Mean Predicted 3.56 L/s [facility] PIFR - % Predicted Pre-Bronchodilato r 54 % [facility] Pulmonary Function Test Interpretation Office [...] EST Narrative 10/17/2019 1:52 PM EST EXAM: CHEST, PA AND LATERAL Comparison: CR - XRAY CHEST 2 VIEWS PA - 10/18/2018 10:26 AM EST FINDINGS: Frontal and lateral views of the chest show no evidence of air space consolidation. There is no pneumothorax, pleural effusion, or congestive changes. Hyperinflation. Heart size is normal. No free air is seen beneath the diaphragm. [...] NOT DETECTED STREP GRP A NOT DETECTED [facility] 06/13/2019 2:00 PM EDT 06/13/2019 2:00 PM EDT Narrative [facility] - 06/13/2019 2:39 PM EDT Patient's primary care provider is: N/A Lab results sent to critical lab pool 06/13/2019 at 2:38 PM by [facility] Testing performed at: [facility], [address] [place] [address], [address], Ferry Captain: Seth Gutierrez MD Vandana Epps MD LAB SAME DAY RESULT Final Resu lt [address] [address] DIRECTOR Seth Gutierrez MD * XRAY SPINE, [...] spine. There is no fracture or subluxation. There is preservation of vertebral body heights. Anterior osteophytes present at C5 and C6. Intervertebral disc space narrowing at C3-4. There is foraminal narrowing bilaterally [...] 12/19/2018 Negative max Curtis ETT See scanned. The results of this test have been briefly [...] EST EXAM: X-ray left shoulder Comparison: CR - XRAY CHEST 2 VIEWS PA - 10/18/2018 10:26 AM EST FINDINGS: 3 views of the left shoulder demonstrate subchondral cyst within the greater tuberosity. Humeral head is anatomically positioned within [...] ECG When compared with ECG of 03/06/14 borderline 1st degree AV block is not present Confirmed by Batsheva Tamez ([id number]), scientific editor RIKY LEWIS ([id number]) on 10/24/2018 8:02:37 AM MUSE EKG SYSTEM [...] EST Narrative 10/18/2018 10:44 AM EST EXAM: CHEST X-RAY, PA AND LATERAL: COMPARISON: None FINDINGS: The cardiomediastinal silhouette is unremarkable. The lungs are well aerated and clear. No mass, infiltrate or atelectasis is apparent. No pleural effusion is suspected. The osseous structures are unremarkable. IMPRESSION: No active cardiopulmonary disease demonstrated. Procedure Note Robert Dotson MD - 10/18/2018 EXAM: CHEST X-RAY, PA AND LATERAL: COMPARISON: None FINDINGS: The cardiomediastinal silhouette is unremarkable. The lungs are well aerated and clear. No mass, infiltrate or atelectasisis apparent. No pleural effusion is suspected. The osseous structures are unremarkable. IMPRESSION: No active cardiopulmonary disease demonstrated. Vandana Epps MD IMG XRAY NO CONTRAST ORDERABLE S Final Result * TISSUE EXAM (07/18/2018 12:31 PM EDT) FINAL DIAGNOSIS Colon (Descending) Polypectomy: - Tubular adenoma [facility] CLINICAL HISTORY Pre-op diagnosis: same [facility] GROSS DESCRIPTION One specimen is received in formalin labeled with patient name, MRN, and descending polyp . It consists of one box soft tissue fragment measuring 0.5 cm in greatest dimension. Specimen is entirely submitted in 1A [facility] EMBEDDED IMAGES [facility] RESULTING AGENCY Case was signed out at [facility], Department of Pathology, Biotech 3 CLIA [id number] [facility] LAB REPORT HEADER Surgical Pathology Report Case: [id number] Authorizing Provider: Johnny Potter MD Collected: 07/18/2018 1231 Ordering Location: [facility]- Received: 07/18/2018 1445 [facility] Pathologist: Willian Lozano MD Specimen: Large Intestine, Descending Colon, descending colon polyp, cold snare [facility] 07/18/2018 12:3 1 PM EDT Narrative [facility] - 07/19/2018 9:24 AM EDT Pre-op diagnosis: same us Johnny Potter MD PATHOLOGY Final Resul t [facility] [employer] [address] [place] [address] * COLONOSCOPY (07/18/2018 12:04 PM EDT) Narrative Procedure Note Johnny Potter MD - 07/18/2018 12:38 PM EDT Procedures signed by Johnny Potter MD at 07/18/2018 12:38 PM Author: Johnny Potter MD Service: (none) Author Type: Physician Filed: 07/18/2018 12:38 PM Date of Service: 07/18/2018 12:04 PM Status:Signed Environmental Engineer: Johnny Potter MD (Physician) Procedure Orders: 1. COLONOSCOPY [[id number]] ordered by Johnny Potter MD at Gastroenterology Patient Name: Magda Will Procedure Date: 07/18/2018 12:04 PM Date of : 1965 Admit Type: Outpatient Age: 52 Room: [place] [address] Gender: Female Note Status: Finalized Attending MD: [...] oxygen saturations were monitored continuously. The [id number]-[id number] [id number] colonoscope was introduced through the anus andadvanced [...] - [facility] The signs and symptoms of potential delayedcomplications [...] 0 Note Initiated On: 07/18/2018 12:04 PM us Johnny Potter MD PROCEDURES Final Resul t * SYPHILIS (FTA) ANTIBODY CASCADING REFLEX TO RPR/TITER (*PREFERRED SCREEN*) (10/12/2017 1:07 PM EST) Treponema pallidum Ab NEGATIVE NEGATIVE [facility] Comment: No antibodies to T. pallidum (the agent causing syphilis) were detected in the specimen. This result, however, does not exclude very recent T. pallidum infection; testing of a second specimen, collected 2-4 weeks after this specimen, is recommended if the index of suspicion for recent infection is high. 10/12/2017 1:07 PM EST 10/12/2017 7:10 PM EST Narrative Resulting Agency Comment [id number] Vandana Epps MD LABORATORY Final Result Performing Organization Address [facility] de Phone Number [facility] [address] [place] [address] * HEPATITIS B SURFACE ANTIGEN (10/12/2017 1:07 PM EST) Pathologist [facility] Hepatitis B virus surface Ag NON-REACTI VE NON-REACT ALEXIS [facility] 10/12/2017 1:07 PM EST 10/12/2017 7:10 PM EST Narrative Resulting Agency Comment [id number] Vandana Epps MD LABORATORY Final Result Performing Organization Address [facility] de Phone Number [facility] [address] [place] [address] * HEPATITIS C AB WITH REFLEX TO RNA PCR, SERUM (10/12/2017 1:07 PM EST) Pathologist [facility] Hepatitis C virus Ab NON-REACTI VE NON-REACT ALEXIS [facility] Hepatitis C virus Ab Signal/Cutoff 0.02 <1.00 [facility] 10/12/2017 1:07 PM EST 10/12/2017 7:10 PM EST Narrative Resulting Agency Comment [id number] Vandana Epps MD LABORATORY Final Result Performing Organization Address [facility] de Phone Number [facility] [address] [place] [address] * CHLAMYDIA TRACHOMATIS/N. GONORRHOEAE (GC) RNA, TMA (URINE) (10/10/2017 4:30 PM EST) Pathologist [facility] Chlamydia trachomatis rRNA NOT DETECTED NOT DETECTED [facility] Neisseria Gonorrhoeae rRNA NOT DETECTED NOT DETECTED [facility] COMMENT SEE NOTE [facility] Comment: This test was performed using the APTIMA COMBO2 Assay ([employer] The analytical performance characteristics of this assay, when used to test SurePath specimens have been determined by [facility]. 10/10/2017 4:30 PM EST 10/10/2017 10:00 PM EST Narrative Resulting Agency Comment [id number] Diane Blanton MD LABORATORY Final R esult Performing Organization Address City/[facility]/ZIP Co de Phone Number [facility] [address] [place] [address] * ENT OTORHINOLARYNGOLOGICAL TEST/PROCEDURE, UNSPECIFIED (09/08/2017) us Unknown Provider PROCEDURES Final Result * MAMMOGRAPHY-BILATERAL (09/08/2017) Only the most recent of4 resultswithin the time period is included. 09/08/2017 Abdi Solo MD GENERAL IMAGING- OTHER Final R esult * ERYTHROCYTE SEDIMENTATION RATE (ESR), WESTERGREN (06/14/2017 11:32 AM EDT) Sedimentation Rate [place] (ESR) 17 0 - 20 mm/hr [facility] 06/14/2017 11:3 2 AM EDT 06/14/2017 11:32 AM EDT Narrative [facility] - 06/14/2017 1:54 PM EDT Patient's primary care provider is: N/A Testing performed at: [facility], [address] [place] [address], [address], Ferry Captain: Vikas Cyr M.D. Abdi Solo MD LAB SAME DAY RESULT Final Resu lt Performing Organization Address [facility]/ZIP Co de Phone Number [address] [address] DIRECTOR VIKAS CYR M.D. * (ABNORMAL) RHEUMATOID FACTOR, SERUM (06/14/2017 11:29 AM EDT) Rheumatoid Factor (Quant) 26(H) <14 IU/mL [facility] 06/14/2017 11:2 9 AM EDT 06/14/2017 8:03 PM EDT Narrative Resulting Agency Comment [id number] us Abdi Solo MD LABORATORY Final Result Performing Organization Address [facility] Co de Phone Number [facility] [address] [place] [address] * C-REACTIVE PROTEIN (CRP) - INFLAMMATION (06/14/2017 11:29 AM EDT) Pathologist [facility] C reactive protein <0.10 <0.80 mg/dL [facility] Comment: Please be advised that patients taking Carboxypenicillins may exhibit falsely decreased C-Reactive Protein levels due to an analytical interference in this assay. 06/14/2017 11:2 9 AM EDT 06/14/2017 8:03 PM EDT Narrative Resulting Agency Comment [id number] us Abdi Solo MD LABORATORY Final Result Performing Organization Address [facility] de Phone Number [facility] [address] [place] [address] * NICHO SCREEN IFA W/REFLEX TO TITER/PATTERN IFA (06/14/2017 11:29 AM EDT) [facility] NICHO IFA NEGATIVE NEGATIVE [facility] Comment: NICHO IFA is a first line screen for detecting the presence of up to approximately 150 autoantibodies in various autoimmune diseases. A negative NICHO IFA result suggests NICHO-associated autoimmune diseases are not present at this time. Visit Physician FAQs for interpretation of all antibodies in the [place], prevalence, and association with diseases at http://education.Stumpedia/ faq/XAT379 06/14/2017 11:2 9 AM EDT 06/14/2017 8:03 PM EDT Narrative Resulting Agency Comment [id number] us Abdi Solo MD LABORATORY Final Result Performing Organization Address [facility] Co de Phone Number [facility] [address] [place] [address] * CYCLIC CITRULLINATEDPEPTIDE CCP AB IGG (06/14/2017 11:29 AM EDT) CCP Ab, IgG <16 UNITS [facility] Comment: Reference Range Negative: <20 Weak Positive: 20-39 Moderate Positive: 40-59 Strong Positive: >59 06/14/2017 11:2 9 AM EDT 06/14/2017 8:03 PM EDT Narrative Resulting Agency Comment [id number] Abdi Solo MD LABORATORY Final Result Performing Organization Address City/State/[facility] Co de Phone Number [facility] [address] [place] [address] * STREP THROAT (GROUP A) RAPID DETECTION - STATION (04/18/2017) STREP GROUP A, RAPID (THROAT) negative 04/18/2017 Karen Luciano HEAD SCHOOL CUSTODIAN STATION [facility] Final Result * US TRANSVAGINAL (FOR MANAGER SPECIAL EVENTS DEPT USE ONLY)FC (02/24/2017 11:29 AM EDT) Anatomical Region Laterality Modality Ultrasound Impressions 03/01/2017 12:28 PM EDT : results given and discussed at time of appt Narrative 03/01/2017 12:28 PM EDT Reason for Ultrasound: Menstrual Problem Method: transvaginal Uterus Measurements: 7.6x4.1x3.3cm smooth contour: yes Endometrial stripe measurement: 2.0mm homogeneous Rt OV not seen Lt OV not seen [place] de sac: no free fluid Outcome Analyst Comments: Uterus anteverted, homogeneous Ovaries not seen, no adnexal masses seen No free fluid in cds IMPRESSION: Normal but limitted ultrasound Cintia Gómez HEAD SCHOOL CUSTODIAN IMG US OBGYN ORDERABLES Mary Ann l [...] none given [facility] Comment:{CLINICAL INFORMATIO N: {[id number]) Date last menstrual period 09/30/16 [facility] Comment:{LMP: {[id number]) Date of previous PAP smear NONE GIVEN [facility] Comment:{PREV. PAP: {[id number]) Date of previous biopsy NONE GIVEN [facility] Comment:{PREV. BX: {[id number]) Specimen source (Cvx/Vag) Cervix [facility] Comment:{SOURCE: {[id number]) Statement of Adequacy (Cvx/Vag) Satisfactory for evaluation. Endocervical/rosario sformation zone component absent. [facility] Comment:{STATEMENT OF ADEQUA CY: {[id number]) Cytology, Pap Smear Negative for intraepithelial lesion or malignancy. [facility] Comment:{INTERPRETATION/RESU LT: {[id number]) Cytology study comment (Cvx/Vag) This Pap test has been evaluated with computer assisted technology. [facility] Comment:{COMMENT: {[id number]) Social Insurance Analyst (Cvx/Vag) MXD, CT (ASCP) CT screening location: [address] [address] [facility] Comment:{FAST FOOD SHIFT LEAD: { [id number]) HPV MRNA E6/E7 Not Detected Not Detected [facility] Comment: {HPV mRNA E6/E7 {[id number]) This test was performed using the APTIMA HPV Assay ([employer] This assay detects E6/E7 viral messenger RNA (mRNA) from 14 high-risk HPV types (16,18,31,33,35,39,45,51,52,56,58,59,66,68). 10/06/2016 4:27 PM EST 10/07/2016 2:45 AM EST Narrative Resulting Agency Comment [id number] Cintia Gómez NP PATHOLOGY-INTERFACED Final R esult [facility] [address] [place] [address] * VITAMIN D, 25-HYDROXY, TOTAL, IMMUNOASSAY (08/19/2016 2:08 PM EDT) VIT D, 25-OH, TOTAL 52 >29 ng/mL [facility] Comment: Vitamin D Status 25-OH Vitamin D: Deficiency: <20 ng/mL Insufficiency: 20-29 ng/mL Optimal: > or = 30 ng/mL 08/19/2016 2:08 PM EDT 08/19/2016 2:08 PM EDT Narrative [facility] - 08/19/2016 5:09 PM EDT not fasting Patient's primary care provider is: N/A Testing performed at: [facility], [address] [place] [address], [address], Ferry Captain: Vikas Cyr M.D. Abdi Solo MD LABORATORY Final Result Performing Organization Address [facility] Co de Phone Number [address] [address] DIRECTOR VIKAS CYR M.D. * ENT OTORHINOLARYNGOLOGICAL TEST/PROCEDURE, UNSPECIFIED (07/26/2016) Narrative Transcriptions Provider, Unknown - 08/13/2016 12:00 AM EDT Unknown Provider PROCEDURES Final Result * FOOT 3 VIEW - LEFT (03/05/2016 3:35 PM EDT) Only the most recent of3 resultswithin the time period is included. RADIOLOGY REPORT [facility] Department of Radiology [address] [place] [address], [address] Name: MANNY STEIN : 63 Date of Service: 03/05/16 1136 Acct Number: [id number] Order Number: [id number] Location: [facility] Report Number: [id number] Service: REG REF/ Requesting Physician: Xavi Ojeda ([facility]) Category: ORTHOPEDIC RADIOLOGY [facility] Exam: FOOT 3 VIEWS Left Signs/Symptoms: NONDISPLACED FX DISTAL THIRD METATARSAL Report Status: ---Signed--- Study:3 views of left foot Comparison:Decem 2014 Findings:There is healed fracture deformity with callus formation of the third and fourth metatarsal tarsal bones fragments are anatomically aligned and there is good callus formation Impression:Heale d fracture of the third and fourth metatarsal bone on the left Date/Time of Dictation: 03/05/16 1538 Credentialing Assistant (if applicable): Approved By Attending Radiologist: Jose Craven 03/05/16 [facility]8 [facility] Department of Radiology [address] [place] [address], [address] [facility] Anatomical Region Laterality Modality Other 03/05/2016 3:35 PM EDT Narrative 03/05/2016 3:39 PM EDT Reason for Study/History: Department of Radiology TEST(S) PROCESSED BY [facility] XRAY Xavi Ojeda ID IMAGING-[facility] Final Result * UNSPECIFIED MAJOR PROCEDURE (11/10/2015) Narrative Transcriptions Mack Mccarthy - 11/13/2015 12:00 AM EST Mack Mccarthy PROCEDURES Final Result * HELICOBACTER PYLORI UREA BREATH TEST (UBIT-(R)) (10/28/2015 8:57 AM EST) Urea Breath Test, Infra-Red (Ubit) NOT DETECTED NOT DETECTED [facility] Comment: {HELICOBACTER PYLORI, UREA BREATH TEST {[id number]) Antimicrobials, proton pump inhibitors, and bismuth preparations are known to suppress H. pylori, and ingestion of these prior to H. pylori diagnostic testing may lead to false negative results. If clinically indicated, the test may be repeated on a new specimen obtained two weeks after discontinuing treatment. 10/28/2015 8:57 AM EST 10/28/2015 2:27 PM EST Narrative Resulting Agency Comment [id number] John Oviedo MD LABORATORY Final Resu lt [facility] [address] [place] [address] * CT - THORAX W/O CONTRAST THEN [...] the distal third metatarsal us Karen Luciano NP IMG XRAY NO CONTRAST ORDERABLES Final Result * DERMATOPHAGOIDESPTERONYSSINUS (D1) IGE (09/01/2015 2:10 PM EDT) Only the most recent of2 resultswithin the time period is included. Dermatophagoidespteronyssinu s (D1) IgE <0.35 kU/L [facility] Comment:{DERMATOPHAGOIDES PT ERONYSSINUS (D1) IGE {[id number]) Dermatophagoides pteronyssin us (D1) Class 0 [facility] Comment:{CLASS {[id number]) 09/01/2015 2:10 PM EDT 09/01/2015 7:51 PM EDT Narrative Resulting Agency Comment [id number] us John Oviedo MD LABORATORY Final Resu lt Performing Organization Address [facility] Co de Phone Number [facility] [address] [place] [address] * DERMATOPHAGOIDES FARINAE (D2) IGE (09/01/2015 2:10 PM EDT) Only the most recent of2 resultswithin the time period is included. Dermatophagoides Farinae(D2) IgE <0.35 kU/L [facility] Comment:{DERMATOPHAGOIDES FA RINAE (D2) IGE {[id number]) Dermatophagoides Farinae(D2) Class 0 [facility] Comment:{CLASS {[id number]) 09/01/2015 2:10 PM EDT 09/01/2015 7:51 PM EDT Narrative Resulting Agency Comment [id number] us John Oviedo MD LABORATORY Final Resu lt Performing Organization Address [facility] Co de Phone Number [facility] [address] [place] [address] * (ABNORMAL) HELICOBACTER PYLORI IGGANTIBODY (08/13/2015 2:50 PM EDT) Helicobacter pylori Ab.IgG POSITIVE (A) NEGATIVE [facility] Comment: {HELICOBACTER PYLORI ANTIBODY (IGG) {[id number]) Measurement of antibodies to H. pylori is not recommended for the diagnosis of active infection. The [place] [employer] and the [place] [employer] recommend either the urea breath test or the fecal antigen test for diagnosis and confirmation of eradication in cases of suspected or proven H. pylori infection. Effective September 15, 2015 Helicobacter(H) pylori antibody testing will no longer be offered at [facility]. We are pleased to offer ACG and AGA recommended testing for ACTIVE infection with either H. pylori Stool Antigen (test code 38345[X]) or H. pylori Urea Breath Test (51013[X] for adult patients and 17706 for pediatric patients). For more information on testing for ACTIVE H. pylori infection, please see http://education.Deezer.Amperion/insights/61 08/13/2015 2:50 PM EDT 08/14/2015 12:47 AM EDT Narrative Resulting Agency Comment [id number] John Oviedo MD LABORATORY Final Resu lt [facility] [address] [place] [address] * ALLERGEN (IGE), CONV. RAST-EDWINA CAMPUZANO (672) (08/13/2015 2:50 PM EDT) [facility] Edwina Campuzano IgE <0.10 <0.35 kU/L [facility] Comment:{ALLERGEN SPECIFIC I GE EDWINA SHGBRK(C.OVATA) {[id number]) Edwina Campuzano Class 0 [facility] Comment: {CLASS {[id number]) This conventional RAST uses allergen-coated discs from several suppliers and an isotope-labeled anti-IgE. IgE Conc (kU/L) Class Interpretation <0.10 0 Below Detection 0.10-0.34 0/1 Equivocal/Borderline 0.35-0.69 1 Low Positive 0.70-3.49 2 Moderate Positive 3.50-17.49 3 Positive >17.49 4 Strong Positive *This test was developed and its performance characteristics determined by [facility]. It has not been cleared or approved by the U.S. Food and Drug Administration. 08/13/2015 2:50 PM EDT 08/14/2015 12:47 AM EDT Narrative Resulting Agency Comment [id number] John Oviedo MD LABORATORY Final Resu lt Performing Organization Address [facility] Co de Phone Number [facility] [address] [place] [address] * SHEEP SORREL (W18) IGE (08/13/2015 2:50 PM EDT) [place]ep [place] IgE <0.35 kU/L [facility] Comment:{SHEEP SORREL (W18) IGE {[id number]) Sheep [place] (W18) Class 0 [facility] Comment:{CLASS {[id number]) 08/13/2015 2:50 PM EDT 08/14/2015 12:47 AM EDT Narrative Resulting Agency Comment [id number] us John Oviedo MD LABORATORY Final Resu lt Performing Organization Address [facility] de Phone Number [facility] [address] [place] [id number] * FLETCHER'S QUARTER (GOOSE FOOT) (W10) IGE (08/13/2015 2:50 PM EDT) [facility]'s Quarters ([place]) (W10) IgE <0.35 kU/L [facility] Comment:{FLETCHER'S QUARTERS (GO OSE FOOT) (W10) IGE {[id number]) Fletcher's Quarters ([place]) (W10) Class 0 [facility] Comment:{CLASS {[id number]) 08/13/2015 2:50 PM EDT 08/14/2015 12:47 AM EDT Narrative Resulting Agency Comment [id number] John Oviedo MD LABORATORY Final Resu lt Performing Organization Address [facility] Co de Phone Number [facility] [address] [place] [address] * ALLISON GRASS (G10) IGE (08/13/2015 2:50 PM EDT) Allison Grass (G10) IgE <0.35 kU/L [facility] Comment:{ALLISON GRASS (G10) IGE {[id number]) Allison Grass (G10) Class 0 [facility] Comment:{CLASS {[id number]) 08/13/2015 2:50 PM EDT 08/14/2015 12:47 AM EDT Narrative Resulting Agency Comment [id number] us John Oviedo MD LABORATORY Final Resu lt Performing Organization Address [facility] Co de Phone Number [facility] [address] [place] [address] * GIANT RAGWEED (TALL) (W3)IGE (08/13/2015 2:50 PM EDT) Ragweed Giant IgE <0.35 kU/L [facility] Comment:{GIANT RAGWEED (TALL ) (W3) IGE {[id number]) Giant Ragweed (Tall) (W3) Class 0 [facility] Comment:{CLASS {[id number]) 08/13/2015 2:50 PM EDT 08/14/2015 12:47 AM EDT Narrative Resulting Agency Comment [id number] us John Oviedo MD LABORATORY Final Resu lt Performing Organization Address [facility] Co de Phone Number [facility] [address] [place] [address] * ELM (T8) IGE (08/13/2015 2:50 PM EDT) Elm (T8) IgE <0.35 kU/L [facility] Comment:{ELM (T8) IGE {[id number]) [place]m (T8) Class 0 [facility] Comment:{CLASS {[id number]) 08/13/2015 2:50 PM EDT 08/14/2015 12:47 AM EDT Narrative Resulting Agency Comment [id number] us John Oviedo MD LABORATORY Final Resu lt Performing Organization Address [facility] Co de Phone Number [facility] [address] [place] [address] * DOG DANDER (E5) IGE (08/13/2015 2:50 PM EDT) Dog Dander (E5) IgE <0.35 kU/L [facility] Comment:{DOG DANDER (E5) IGE {[id number]) Dog Dander (E5) Class 0 [facility] Comment:{CLASS {[id number]) 08/13/2015 2:50 PM EDT 08/14/2015 12:47 AM EDT Narrative Resulting Agency Comment [id number] us John Oviedo MD LABORATORY Final Resu lt Performing Organization Address [facility] de Phone Number [facility] [address] [place] [address] * COMMON RAGWEED (SHORT) (W1) IGE (08/13/2015 2:50 PM EDT) Common Ragweed (Short)(W1) IgE <0.35 kU/L [facility] Comment:{COMMON RAGWEED (AJ RT) (W1) IGE {[id number]) Common Ragweed (Short)(W1) Class 0 [facility] Comment:{CLASS {[id number]) 08/13/2015 2:50 PM EDT 08/14/2015 12:47 AM EDT Narrative Resulting Agency Comment [id number] us John Oviedo MD LABORATORY Final Resu lt Performing Organization Address [facility] Co de Phone Number [facility] [address] [place] [address] * COCKROACH (I6) IGE (08/13/2015 2:50 PM EDT) Cockroach (I6) IgE <0.35 kU/L [facility] Comment:{COCKROACH (I6) IGE {[id number]) Cockroach (I6) Class 0 [facility] Comment:{CLASS {[id number]) 08/13/2015 2:50 PM EDT 08/14/2015 12:47 AM EDT Narrative Resulting Agency Comment [id number] us John Oviedo MD LABORATORY Final Resu lt Performing Organization Address [facility] de Phone Number [facility] [address] [place] [address] * CLADOSPORIUM HERBARUM (M2) IGE (08/13/2015 2:50 PM EDT) Cladosporium Herbarum (M2) IgE <0.35 kU/L [facility] Comment:{CLADOSPORIUM HERBAR UM (M2) IGE {[id number]) Cladosporium Herbarum(M2) Class 0 [facility] Comment:{CLASS {[id number]) 08/13/2015 2:50 PM EDT 08/14/2015 12:47 AM EDT Narrative Resulting Agency Comment [id number] us John Oviedo MD LABORATORY Final Resu lt Performing Organization Address [facility] de Phone Number [facility] [address] [place] [address] * BIRCH (T3) IGE (08/13/2015 2:50 PM EDT) Birch (T3) IgE <0.35 kU/L [facility] Comment:{BIRCH (T3) IGE {[id number]) Birch (T3) Class 0 [facility] Comment:{CLASS {[id number]) 08/13/2015 2:50 PM EDT 08/14/2015 12:47 AM EDT Narrative Resulting Agency Comment [id number] John Oviedo MD LABORATORY Final Resu lt Performing Organization Address [facility] Co de Phone Number [facility] [address] [place] [address] * BERMUDA GRASS (G2) IGE (08/13/2015 2:50 PM EDT) [place] Grass (G2) IgE <0.35 kU/L [facility] Comment:{BERMUDA GRASS (G2) IGE {[id number]) [place] Grass (G2) Class 0 [facility] Comment:{CLASS {[id number]) 08/13/2015 2:50 PM EDT 08/14/2015 12:47 AM EDT Narrative Resulting Agency Comment [id number] us John Oviedo MD LABORATORY Final Resu lt Performing Organization Address [facility] de Phone Number [facility] [address] [place] [address] * ASPERGILLUS FUMIGATUS(M3) IGE (08/13/2015 2:50 PM EDT) Aspergillus Fumigatus (M3) IgE <0.35 kU/L [facility] Comment:{ASPERGILLUS FUMIGAT US (M3) IGE {[id number]) Aspergillus Fumigatus(M3) Class 0 [facility] Comment:{CLASS {[id number]) 08/13/2015 2:50 PM EDT 08/14/2015 12:47 AM EDT Narrative Resulting Agency Comment [id number] us John Oviedo MD LABORATORY Final Resu lt Performing Organization Address [facility] Co de Phone Number [facility] [address] [place] [address] * ALTERNARIA ALTERNATA (M6)IGE (08/13/2015 2:50 PM EDT) Alternaria Alternata (M6) IgE <0.35 kU/L [facility] Comment:{ALTERNARIA ALTERNAT A (M6) IGE {[id number]) Alternaria Alternata (M6) Class 0 [facility] Comment:{CLASS {[id number]) 08/13/2015 2:50 PM EDT 08/14/2015 12:47 AM EDT Narrative Resulting Agency Comment [id number] us John Oviedo MD LABORATORY Final Resu lt Performing Organization Address [facility]/ZIP Co de Phone Number [facility] [address] [place] [address] * MAPLE (BOX ELDER) (T1) IGE (08/13/2015 2:50 PM EDT) Maple ([place]) (T1) IgE <0.35 kU/L [facility] Comment:{MAPLE (BOX ELDER) ( T1) IGE {[id number]) Maple ([place]) (T1) Class 0 [facility] Comment:{CLASS {[id number]) 08/13/2015 2:50 PM EDT 08/14/2015 12:47 AM EDT Narrative Resulting Agency Comment [id number] us John Oviedo MD LABORATORY Final Resu lt Performing Organization Address [facility] Co de Phone Number [facility] [address] [place] [address] * OAK (T7) IGE (08/13/2015 2:50 PM EDT) [place] (T7) IgE <0.35 kU/L [facility] Comment:{OAK (T7) IGE {[id number]) [place] (T7) Class 0 [facility] Comment:{CLASS {[id number]) 08/13/2015 2:50 PM EDT 08/14/2015 12:47 AM EDT Narrative Resulting Agency Comment [id number] us John Oviedo MD LABORATORY Final Resu lt Performing Organization Address [facility]/ZIP Co de Phone Number [facility] [address] [place] [address] * WHITE GERALD (T15) IGE (08/13/2015 2:50 PM EDT) White Gerald (T15) IgE <0.35 kU/L [facility] Comment:{WHITE GERALD (T15) IGE {[id number]) White Gerald (T15) Class 0 [facility] Comment:{CLASS {[id number]) 08/13/2015 2:50 PM EDT 08/14/2015 12:47 AM EDT Narrative Resulting Agency Comment [id number] us John Oviedo MD LABORATORY Final Resu lt Performing Organization Address [facility] de Phone Number [facility] [address] [place] [address] * GAGE GRASS (G6) IGE (08/13/2015 2:50 PM EDT) Gage Grass (G6) IgE <0.35 kU/L [facility] Comment:{GAGE GRASS (G6) IGE {[id number]) Gage Grass (G6) Class 0 [facility] Comment:{CLASS {[id number]) 08/13/2015 2:50 PM EDT 08/14/2015 12:47 AM EDT Narrative Resulting Agency Comment [id number] us John Oviedo MD LABORATORY Final Resu lt Performing Organization Address [facility] de Phone Number [facility] [address] [place] [address] * CAT EPITHELIUM ANDDANDER (E1) IGE (08/13/2015 2:50 PM EDT) Cat Dander (E1) IgE <0.35 kU/L [facility] Comment:{CAT DANDER (E1) IGE {[id number]) Cat Dander (E1) Class 0 [facility] Comment:{CLASS {[id number]) 08/13/2015 2:50 PM EDT 08/14/2015 12:47 AM EDT Narrative Resulting Agency Comment [id number] us John Oviedo MD LABORATORY Final Resu lt Performing Organization Address [facility] Co de Phone Number [facility] [address] [place] [address] * IGE, SERUM (08/13/2015 2:50 PM EDT) IgE 13 <BW=708 kU/L [facility] Comment:{IMMUNOGLOBULIN E {[id number]) 08/13/2015 2:50 PM EDT 08/14/2015 12:47 AM EDT Narrative Resulting Agency Comment [id number] us John Oviedo MD LABORATORY Final Resu lt Performing Organization Address [facility] de Phone Number [facility] [address] [place] [address] * (ABNORMAL) CULTURE, URINE, ROUTINE (06/26/2015 5:24 PM EDT) [place] count (Urine) >50,000 CFU/ml [facility] Bacteria culture (Urine) Mixed Culture,Repeat if Clinically Indicated(A) No Growth [facility] 06/26/2015 5:24 PM EDT 06/26/2015 5:24 PM EDT Narrative [facility] - 06/28/2015 8:11 AM EDT Patient's primary care provider is: N/A Testing performed at: [facility], [address] [place] [address], [phone], Ferry Captain: Vikas Cyr M.D. us Diane Blanton MD LABORATORY Final R esult Performing Organization Address [facility] Co de Phone Number [address] [address] DIRECTOR VIKAS CYR M.D. * URINALYSIS, COMPLETE [...] PM EDT 06/26/2015 5:24 PM EDT Narrative [facility] - 06/26/2015 7:12 PM EDT Patient's primary care provider is: N/A Testing performed at: [facility], [address] [place] [address], [id number], Ferry Captain: Vikas Cyr M.D. Diane Blanton MD LAB SAME DAY RESULT Fin al Result [address] [address] DIRECTOR VIKAS CYR M.D. * BV/VAGINITIS PANELDNA PROBE (06/26/2015 5:23 PM EDT) Trichomonas vaginalis rRNA (Genital) NOT DETECTED NOT DETECTED [facility] Comment:{TRICHOMONAS: {[id number]) Gardnerella vaginalis rRNA (Genital) NOT DETECTED NOT DETECTED [facility] Comment:{GARDNERELLA: {[id number]) Nelly sp rRNA (Vag) NOT DETECTED NOT DETECTED [facility] Comment:{NELLY: {[id number]) 06/26/2015 5:23 PM EDT 06/26/2015 11:16 PM EDT Narrative Resulting Agency Comment [id number] Diane Blanton MD LABORATORY Final R esult Performing Organization Address City/State/[facility] Co de Phone Number [facility] [address] [place] [address] * UNSPECIFIED MAJOR PROCEDURE (06/12/2015) Narrative Transcriptions [...] . Early patellofemoral spurring consistent with osteoarthritis. Procedure Note Seema Sidhu MD - 05/02/2015 [...] patellofemoral spurring consistent with osteoarthritis. Buffy Capps [employer] C[employer] IMG XRAY NO CONTRAST ORDERABLE S Final Result * TSH (04/10/2015 9:45 AM EDT) Only the most recent of2 resultswithin the time period is included. Thyroid Stimulating Hormone 3.93 0.40 - 4.50 uIU/ml 04/10/2015 1:[address] [facility] 04/10/2015 9:45 AM EDT 04/10/2015 9:45 AM EDT Narrative [facility] - 04/10/2015 12:00 AM EDT Patient's primary care provider is: Abdi Solo us Abdi Solo MD LABORATORY Final Result [facility] * (ABNORMAL) SED RATE (04/10/2015 9:45 AM EDT) Only the most recent of2 resultswithin the time period is included. Erythrocyte Sedimentation Rate 22(H) 0 - 20 mm/hr 04/10/2015 1:42 PM EDT [facility] 04/10/2015 9:45 AM EDT 04/10/2015 9:45 AM EDT Narrative [facility] - 04/10/2015 12:00 AM EDT Patient's primary care provider is: Abdi Solo Abdi Solo MD LABORATORY Final Result [facility] * T4, FREE (04/10/2015 9:45 AM EDT) Only the most recent of2 resultswithin the time period is included. Free Thyroxine (Free T4) 1.2 0.8 - 1.8 ng/dL 04/12/2015 12:[address] [facility] 04/10/2015 9:45 AM EDT 04/10/2015 9:45 AM EDT Narrative [facility] - 04/12/2015 12:00 AM EDT Patient's primary care provider is: Abdi Solo Testing performed at: [facility], [address] [place] [address],[place], [address], Ferry Captain: JAMES MARIO MD us Abdi Solo MD LABORATORY Final Result Performing Organization Address [facility] Co de Phone Number [facility] * VITAMIN B12 (04/10/2015 9:45 AM EDT) [facility] Vitamin B12 412 200 - 1100 pg/mL 04/11/2015 11:[address] [facility] 04/10/2015 9:45 AM EDT 04/10/2015 9:45 AM EDT Narrative [facility] - 04/11/2015 12:00 AM EDT Patient's primary care provider is: Abdi Solo Testing performed at: [employer] [facility], [address] [place] [address],[address], [place], [address], Ferry Captain: JAMES MARIO MD Abdi Solo MD LABORATORY Final Result Performing Organization Address [facility] de Phone Number [facility] * (ABNORMAL) PROTEIN ELECTROPHORESIS, SERUM (04/10/2015 9:45 AM EDT) [facility] Protein Total (Serum) 7.5 6.1 - 8.1 g/dL 04/14/2015 10:[address] [facility] Albumin 4.2 3.5 - 4.7 g/dL 04/14/2015 10:10 AM EDT [facility] Alpha 1 Globulin 0.3 0.1 - 0.3 g/dL 04/14/2015 10:[address] [facility] Alpha 2 Globulin 0.6 0.5 - 1.0 g/dL 04/14/2015 10:[address] [facility] Beta Globulin 0.9 0.8 - 1.4 g/dL 04/14/2015 10:10 AM EDT [facility] Gamma Globulin 1.7(H) 0.6 - 1.6 g/dL 04/14/2015 10:[address] [facility] SPEP Interpretation SEE NOTE 04/14/2015 10:[address] [facility] Comment: Polyclonal increase in gamma globulins suggesting non-specific chronic inflammatory pattern. 04/10/2015 9:45 AM EDT 04/10/2015 9:45 AM EDT Narrative [facility] - 04/14/2015 12:00 AM EDT Patient's primary care provider is: Abdi Solo Testing performed at: [facility], [address] [place] [address],[place], [address], Ferry Captain: JAMES MARIO MD Abdi Solo MD LABORATORY Final Result Performing Organization Address [facility] de Phone Number [facility] * C-REACTIVE PROTEIN QUANTITATIVE (04/10/2015 9:45 AM EDT) C-Reactive Protein 0.15 <0.80 mg/dL 04/12/2015 12:[address] [facility] Comment: Please be advised that patients taking Carboxypenicillins may exhibit falsely decreased C-Reactive Protein levels due to an analytical interference in this assay. 04/10/2015 9:45 AM EDT 04/10/2015 9:45 AM EDT Narrative [facility] - 04/12/2015 12:00 AM EDT Patient's primary care provider is: Abdi Solo Testing performed at: [facility], [address] [place] [address],[facility] [place], [address], Ferry Captain: JAMES MARIO MD Abdi Solo MD LABORATORY Final Result Performing Organization Address [facility] de Phone Number [facility] * VITAMIN D 25-HYDROXY TOTAL ONLY (04/10/2015 9:45 AM EDT) Only the most recent of4 resultswithin the time period is included. Vitamin D, 25 Hydroxy Total 40 30 - 100 ng/mL 04/12/2015 12:[address] [facility] Comment: Vitamin D Status 25-OH Vitamin D: Deficiency: <20 ng/mL Insufficiency: 20 - 29 ng/mL Optimal: > or = 30 ng/mL For 25-OH Vitamin D testing on patients on D2-supplementation and patients for whom quantitation of D2 and D3 fractions is required, the QuestAssureD(TM) 25-OH VIT D, (D2,D3), LC/MS/MS is recommended: order code 24495 (patients >2yrs). For more information on this test, go to: http://education.GOPOP.TV/faq/AMJ395 Effective March 31, the test order code 82554, used prior to March 31, for LC/MS/MS, will be transitioned to a carefully-selected immunoassay methodology. The new immunoassay has passed CDC standardization certification and provides high quality quantitative results that are tied back to standards from the NIST. For those patients for whom LC/MS/MS testing is appropriate, please utilize test code 17143. When LC/MS/MS is the chosen assay, utilize test code 61543 for patients > or = 3 years of age, patients who are on D2 supplementation, and patients for whom a separate D2 and D3 measurement is required. For patients <3 years of age, test code 60995 should be used. Important Note Regarding Custom Panels With 25-Hydroxyvitamin D: If you currently order vitamin D testing as part of a custom panel, the LC/MS/MS vitamin D test will be maintained in your panel after March 31, 2015. If you would like to replace the test in your panel with the new immunoassay, or have any questions regarding the transition of the 93301 test code, please contact your local [employer] amb[employer] promotional sales. 04/10/2015 9:45 AM EDT 04/10/2015 9:45 AM EDT Narrative [facility] - 04/12/2015 12:00 AM EDT Patient's primary care provider is: Abdi Solo Testing performed at: [facility], [address] [place] [address] [address], [place], [address], Ferry Captain: JAMES MARIO MD us Abdi Solo MD LABORATORY Final Result [facility] * PROTEIN ELECTROPHORESIS RANDOM URINE (04/10/2015 9:45 AM EDT) Creatinine (Urine) 59 20 - 320 mg/dL 04/14/2015 10:[address] [facility] Protein/Creatinine (24Hr Urine) 119 21 - 161 mg/g creat 04/14/2015 10:[address] [facility] Protein (Urine) 7 5 - 24 mg/dL 04/14/2015 10:[address] [facility] Microalbumin/Creat inine Ratio 100 % 04/14/2015 10:[address] [facility] Alpha 1 Globulin (24Hr Urine) 0 % 04/14/2015 10:[address] [facility] Alpha 2 Globulin (24Hr Urine) 0 % 04/14/2015 10:[address] [facility] Beta globulin/Protein.T otal (24Hr Urine) 0 % 04/14/2015 10:[address] [facility] Gamma Globulins, 24 Hr Urine 0 % 04/14/2015 10:10 AM EDT [facility] UPEP Interpretation SEE NOTE 04/14/2015 10:[address] [facility] Comment: Normal Pattern 04/10/2015 9:45 AM EDT 04/10/2015 9:45 AM EDT Narrative [facility] - 04/14/2015 12:00 AM EDT Patient's primary care provider is: Abdi Solo Testing performed at: [facility], [address] [place] [address],[address], [place], [address], Ferry Captain: JAMES MARIO MD us Abdi Solo MD LABORATORY Final Result [facility] * HEMOGRAM (CBC) W AUTO DIFF RFLX MAN DIFF (04/10/2015 9:45 AM EDT) Only the most recent of2 resultswithin the time period is included. Leukocytes 8.4 3.8 - 10.8 K/uL 04/10/2015 12:[address] [facility] Neutrophils # 6.2 3.3 - 6.3 K/uL 04/10/2015 12:[address] [facility] Granulocytes 0.03 0.00 - 0.07 K/uL 04/10/2015 12:[address] [facility] Lymphocytes # 1.4 0.9 - 3.9 K/uL 04/10/2015 12:23 PM EDT [facility] Monocytes # 0.7 0.2 - 1.0 K/uL 04/10/2015 12:23 PM EDT [facility] Eosinophils # 0.1 0.0 - 0.2 K/uL 04/10/2015 12:23 PM EDT [facility] Basophils # 0.0 0.0 - 0.2 K/uL 04/10/2015 12:23 PM EDT [facility] Neutrophils % 73.5 48.0 - 77.7 % 04/10/2015 12:23 PM EDT [facility] Granulocytes/100 leukocytes 0.40 0.00 - 0.90 % 04/10/2015 12:23 PM EDT [facility] Lymphocytes/100 leukocytes 16.6 10.0 - 38.0 % 04/10/2015 12:23 PM EDT [facility] Monocytes/100 Leukocytes 8.3 0.0 - 14.0 % 04/10/2015 12:23 PM EDT [facility] Eosinophils 1.0 0.0 - 5.0 % 04/10/2015 12:23 PM EDT [facility] Basophils 0.2 0.0 - 3.0 % 04/10/2015 12:23 PM EDT [facility] Erythrocytes 4.12 3.80 - 5.10 M/uL 04/10/2015 12:23 PM EDT [facility] Hemoglobin 12.4 11.7 - 15.5 g/dL 04/10/2015 12:23 PM EDT [facility] Hematocrit 37.0 35.0 - 45.0 % 04/10/2015 12:23 PM EDT [facility] Mean Corpuscular Volume 89.8 80.0 - 100.0 fl 04/10/2015 12:23 PM EDT [facility] Mean Corpuscular Hemoglobin 30.1 27.0 - 33.0 pg 04/10/2015 12:23 PM EDT [facility] Mean Corpuscular Hemoglobin Conc 33.5 32.0 - 36.0 g/dL 04/10/2015 12:23 PM EDT [facility] RDW 12.9 11.0 - 15.0 % 04/10/2015 12:23 PM EDT [facility] Platelets 247 140 - 400 K/uL 04/10/2015 12:23 PM EDT [facility] 04/10/2015 9:45 AM EDT 04/10/2015 9:45 AM EDT Narrative [facility] - 04/10/2015 12:00 AM EDT Patient's primary care provider is: Abdi Solo us Abdi Solo MD LABORATORY Final Result [facility] [place] [facility] * COMPREHENSIVE METABOLIC PROFILE W/GFR ([facility]) (04/10/2015 9:45 AM EDT) Only the most recent of2 resultswithin the time period is included. Glucose 65 65 - 99 mg/dl 04/10/2015 1:[address] [facility] [facility] Urea Nitrogen Blood (BUN) 13 7 - 25 mg/dL 04/10/2015 1:[address] [facility] [place] [facility] Creatinine 0.69 0.50 - 1.16 mg/dL 04/10/2015 1:[address] [facility] [place] [facility] Sodium 137 136 - 145 mmo/L 04/10/2015 1:[address] [facility] [facility] Potassium 4.0 3.5 - 5.3 mmol/L 04/10/2015 1:10 PM EDT [facility] Chloride 100 98 - 107 mmo/L 04/10/2015 1:[address] [facility] Calcium 9.9 8.5 - 10.4 mg/dL 04/10/2015 1:[address] [facility] Protein Total (Serum) 7.8 6.0 - 8.3 g/dL 04/10/2015 1:[address] [facility] Albumin 4.5 3.5 - 5.2 g/dL 04/10/2015 1:[address] [facility] Globulin 3 2 - 4 G/DL 04/10/2015 1:[address] [facility] Bilirubin, Total 0.40 0.20 - 1.50 mg/dL 04/10/2015 1:[address] [facility] Alkaline Phosphatase 60 33 - 130 U/L 04/10/2015 1:[address] [facility] AST (SGOT) 18 <38 U/L 04/10/2015 1:[address] [facility] ALT (SGPT) 17 <47 U/L 04/10/2015 1:[address] [facility] Carbon Dioxide 28 23 - 33 mmol/L 04/10/2015 1:[address] [facility] Glomerular Filtration Rate,Est 96 >60 ml/min 04/10/2015 1:[address] [facility] Comment: For patients greater than 18 years of and and if the patient is , please multiply result by 1.210 04/10/2015 9:45 AM EDT 04/10/2015 9:45 AM EDT Narrative [facility] - 04/10/2015 12:00 AM EDT Patient's primary care provider is: Abdi Solo us Abdi Solo MD LABORATORY Final Result [facility] * COLONOSCOPY (01/15/2015 12:00 AM EST) ATTACHED DOCUMENT 01/15/2015 12:00 AM EST ATTACHED DOCUMENT 01/15/2015 12:00 AM EST 01/15/2015 01/15/2015 Narrative Transcriptions Abdi Solo MD - 05/23/2015 12:00 AM EDT Abdi Solo MD - 05/26/2015 12:00 AM EDT us Abdi Solo MD PROCEDURES Final Result * (ABNORMAL) URINE CULTURE (09/11/2014 10:41 AM EDT) [place] Count <50,000 0.00 - 0.00 CFU/ml 09/13/2014 7:[address] [facility] Urine Culture Mixed Culture,Repeat if Clinically Indicated(A) No Growth 09/13/2014 7:[address] [facility] 09/11/2014 10:4 1 AM EDT 09/11/2014 10:41 AM EDT Narrative [facility] - 09/13/2014 12:00 AM EDT non fasting Patient's primary care provider is: Abdi Solo Source: CLEAN CATCH URINE us Abdi Solo MD LABORATORY Final Result [facility] * (ABNORMAL) URINALYSIS W MICROSCOPIC (09/11/2014 10:41 AM EDT) Color (Urine) Yellow Yellow 09/11/2014 12:[address] [facility] Appearance (Urine) Clear Clear 09/11/2014 12:48 PM EDT [facility] PH (Urine) 8.0 5.0 - 8.0 09/11/2014 12:48 PM EDT [facility] Specific [place] (Urine) 1.020 1.005 - 1.030 09/11/2014 12:48 PM EDT [facility] Glucose (Urine) Negative Negative 4 12:48 PM EDT [facility] Bilirubin (Urine) Negative Negative 09/11/2014 12:48 PM EDT [facility] Ketones (Urine) Negative Negative 4 12:[address] [facility] Protein (Urine) Negative Negative 4 12:48 PM EDT [facility] Urobilinogen (Urine) 1.0 E.U./dL 0.0 - 1.0 EU/dl 09/11/2014 12:48 PM EDT [facility] Nitrite (Urine) Negative Negative 4 12:48 PM EDT [facility] Blood (Urine) Negative Negative 09/11/2014 12:48 PM EDT [facility] Leukocyte Esterase (Urine) Negative Negative 09/11/2014 12:48 PM EDT [facility] Leukocytes (Urine) 0-2(A) NONE SEEN 09/11/2014 12:[address] [facility] RBC (Urine Sed) 0-2(A) NONE SEEN 4 12:48 PM EDT [facility] Epithelial Cells (Urine Sed) MODERATE(A) NONE SEEN 09/11/2014 12:48 PM EDT [facility] Casts (Urine) NONE SEEN NONE SEEN 09/11/2014 12:[address] [facility] Crystals (Urine sed) NONE SEEN NONE SEEN 09/11/2014 12:48 PM EDT [facility] Bacteria (Urine) TRACE(A) NONE SEEN 09/11/20 14 12:[address] [facility] 09/11/2014 10:4 1 AM EDT 09/11/2014 10:41 AM EDT Narrative [facility] - 09/11/2014 12:00 AM EDT non fasting Patient's primary care provider is: Abdi Solo us Abdi Solo MD LABORATORY Final Result [facility] * BASIC METABOLIC PANEL W/GFR ([facility]) (09/11/2014 10:41 AM EDT) Only the most recent of2 resultswithin the time period is included. [facility] Signature Glucose 93 65 - 99 mg/dl 09/11/2014 12:[address] [facility] Urea Nitrogen Blood (BUN) 15 7 - 25 mg/dL 09/11/2014 12:[address] [facility] Creatinine 0.68 0.50 - 1.16 mg/dL 09/11/2014 12:[address] [facility] Sodium 137 136 - 145 mmo/L 09/11/2014 12:[address] [facility] Potassium 4.1 3.5 - 5.3 mmol/L 09/11/2014 12:[address] [facility] Chloride 98 98 - 107 mmo/L 09/11/2014 12:[address] [facility] Carbon Dioxide 30 23 - 33 mmol/L 09/11/2014 12:[address] [facility] Calcium 10.0 8.5 - 10.4 mg/dL 09/11/2014 12:[address] [facility] Glomerular Filtration Rate,Est 97 >60 ml/min 09/11/2014 12:[address] [facility] Comment: For patients greater than 18 years of and and if the patient is , please multiply result by 1.210 09/11/2014 10:4 1 AM EDT 09/11/2014 10:41 AM EDT Narrative [facility] - 09/11/2014 12:00 AM EDT non fasting Patient's primary care provider is: Abdi Solo us Abdi Solo MD LABORATORY Final Result [facility] * LAB TEST (09/04/2014 12:00 AM EDT) ATTACHED DOCUMENT 09/04/2014 12:[address] [facility] ATTACHED DOCUMENT 09/04/2014 12:[address] [facility] 09/04/2014 09/04/2014 Narrative TranscriptionAbdi Diaz MD - 05/25/2015 12:00 AM EDT Abdi Solo MD - 05/26/2015 12:00 AM EDT us Abdi Solo MD LABORATORY Final Result Performing Organization Address City/[facility]/ZIP Co de Phone Number [facility] * OPHTHALMOLOGY CONSULTATION (08/30/2014 12:00 AM EDT) Only the most recent of2 resultswithin the time period is included. ATTACHED DOCUMENT 08/30/2014 12:00 AM EDT 08/30/2014 08/30/2014 Narrative TranscriptionAbdi Diaz MD - 05/22/2015 12:00 AM EDT Abdi Solo MD EVALUATION AND MGMT Final Resu lt * OPHTHALMOLOGICAL TEST/PROCEDURE, UNSPECIFIED (08/30/2014) us Unknown Provider PROCEDURES Final Result * MAMMOGRAM AND BREAST ULTRASOUND-RIGHT UNILATERAL-[facility] (07/01/2014 12:00 AM EDT) ATTACHED DOCUMENT [...] Blanton MD - 05/23/2015 12:00 AM EDT Diane Blanton MD IMAGING - NO INBASKET R TG Final Result * GENITAL CULTURE (06/12/2014 5:29 PM EDT) Culture, Genital (Results below) 06/16/2014 10:[address] [facility] Comment: GENITAL TRACT CULTURE: BETA HEMOLYTIC STREP.,GROUP B ADDITIONAL INFO:: NO N. GONORRHOEAE, LISTERIA SPECIES OR YEAST ISOLATED QUANTITY:: 4+ (HEAVY) Performing site QB: [employer] [address] Gabe Humphrey, Ph.D., 06/12/2014 5:29 PM EDT 06/12/2014 5:29 PM EDT Narrative [facility] - 06/16/2014 12:00 AM EDT Patient's primary care provider is: Abdi Solo has No Known Allergies. Source: VAGINA Diane Blanton MD LABORATORY Final R esult [facility] * G. VAGINALIS CULTURE R/0 (06/12/2014 5:29 PM EDT) Gardnerella Vaginalis (Results below) 06/16/2014 10:[address] [facility] Comment: G. VAGINALIS CULTURE RESULTS: NO GARDNERELLA VAGINALIS ISOLATED Performing site QB: [employer] [address] [place] [address] Gabe Humphrey, Ph.D., 06/12/2014 5:29 PM EDT 06/12/2014 5:29 PM EDT Narrative [facility] - 06/16/2014 12:00 AM EDT Patient's primary care provider is: Abdi Solo Source: VAG us Diane Blanton MD LABORATORY Final R esult [facility] * KNEE XRAY LEFT MIN [...] Hormone 25.40 mIU/mL 06/13/2014 8:[address] [facility] Comment: Mid-follicular Mid-cycle peak Mid-luteal Post-menopausal 3.85-8.78 4.53-22.51 1.79-5.12 16.74-113.59 Performing site QB: [employer] [address] [facility] Gabe Humphrey, Ph.D., 06/12/2014 4:52 PM EDT 06/12/2014 4:52 PM EDT Narrative [facility] - 06/13/2014 12:00 AM EDT Patient's primary care provider is: Abdi Solo us Diane Blanton MD LABORATORY Final R esult [facility] * PROLACTIN (06/12/2014 4:52 PM EDT) Prolactin 8.30 ng/mL 06/13/2014 8:[address] [facility] Comment: Pre-menopausal Post-menopausal 3.34-26.72 2.74-19.64 Performing site QB: [employer] [address] [place] [address] Gabe Humphrey, Ph.D., 06/12/2014 4:52 PM EDT 06/12/2014 4:52 PM EDT Narrative [facility] - 06/13/2014 12:00 AM EDT Patient's primary care provider is: Abdi Solo us Diane Blanton MD LABORATORY Final R esult Performing Organization Address [facility] Co de Phone Number [facility] * TSH W REFLEX (06/12/2014 4:52 PM EDT) Thyroid Stimulating Hormone 2.03 0.28 - 3.89 uIU/mL 06/13/2014 8:[address] [facility] Comment: Performing site QB: [employer] [address] [place] [address] Gabe Humphrey, Ph.D., 06/12/2014 4:52 PM EDT 06/12/2014 4:52 PM EDT Narrative [facility] - 06/13/2014 12:00 AM EDT Patient's primary care provider is: Abdi Solo us Diane Blanton MD LABORATORY Final R esult Performing Organization Address City/[facility] Co de Phone Number [facility] * HEMOGRAM (CBC) (06/12/2014 4:52 PM EDT) Leukocytes 9.1 3.8 - 10.8 K/uL 06/12/2014 5:[address] [facility] Erythrocytes 3.96 3.80 - 5.10 M/uL 06/12/2014 5:[address] [facility] Hemoglobin 12.3 11.7 - 15.5 g/dL 06/12/2014 5:[address] [facility] Hematocrit 35.4 35.0 - 45.0 % 06/12/2014 5:[address] [facility] Mean Corpuscular Volume 89.4 80.0 - 100.0 fl 06/12/2014 5:[address] [facility] Mean Corpuscular Hemoglobin 31.0 27.0 - 33.0 pg 06/12/2014 5:[address] [facility] Mean Corpuscular Hemoglobin Conc 34.6 32.0 - 36.0 % 06/12/2014 5:[address] [facility] Platelets 254 140 - 400 K/uL 06/12/2014 5:[address] [facility] RDW 11.4 11.0 - 15.0 % 06/12/2014 5:[address] [facility] 06/12/2014 4:52 PM EDT 06/12/2014 4:52 PM EDT Narrative [facility] - 06/12/2014 12:00 AM EDT Patient's primary care provider is: Abdi Solo Diane Blanton MD LABORATORY Final R esult [facility] * (ABNORMAL) RHEUMATOID FACTOR QUANT (06/12/2014 4:52 PM EDT) Rheumatoid Factor (RA) 136(H) <30 IU/mL 06/13/2014 5:[address] [facility] Comment: Performing site QB: [employer] [facility] [address] [facility] Gabe Humphrey, Ph.D., 06/12/2014 4:52 PM EDT 06/12/2014 4:52 PM EDT Narrative [facility] - 06/13/2014 5:05 PM EDT Combined order with Dr. Solo Patient's primary care provider is: Abdi Solo us Abdi Solo MD LABORATORY Final Result [facility] * C REACTIVE PROTEIN CARDIO (06/12/2014 4:52 PM EDT) [facility] Crp Cardio 1.8 mg/L 06/13/2014 8:[address] [facility] Comment: CRP (mg/L) Relative Cardiovascular Risk < 1.0 Low 1.0-3.0 Average 3.1-10.0 High > 10.0 Persistent elevations may represent non- cardiovascular inflammation. AHA/CDC guidelines: Circulation 2003;107:499-511. Performing site QB: [employer] [address] Gabe Humphrey, Ph.D., 06/12/2014 4:52 PM EDT 06/12/2014 4:52 PM EDT Narrative [facility] - 06/13/2014 12:00 AM EDT Patient's primary care provider is: Abdi Solo us Abdi Solo MD LABORATORY Final Result Performing Organization Address City/[facility]/ZIP Co de Phone Number [facility] * NICHO SCREEN W/REFL TITER IFA (06/12/2014 4:52 PM EDT) [facility] NICHO Screen Negative Negative 06/17/2014 10:[address] [facility] Anti-Nucleat AB Not indicated () 06/17/2014 10:[address] [facility] Comment: Test Performed by [employer], [employer], [address] [place] [address] Hermelindo Patterson M.D., Ph.D., Director of Laboratories , CLIA [id number] Performing site NI: [employer] ([employer]) [address] [place] [address] [place] [phone] CLIA [id number] 06/12/2014 4:52 PM EDT 06/12/2014 4:52 PM EDT Narrative [facility] - 06/17/2014 10:09 AM EDT Combined order with Dr. Solo Patient's primary care provider is: Abdi Solo Abdi Solo MD LABORATORY Final Result Performing Organization Address [facility] Co de Phone Number [facility] * CYCLIC CITRULLINATED PEPTIDE ANTIBODY (IGG) (06/12/2014 4:52 PM EDT) CCP (Cyclic Citrullinated Peptide) IgG < 16 () UNITS 06/14/2014 4:[address] [facility] Comment: Reference Range Negative: <20 Weak Positive: 20-39 Moderate Positive: 40-59 Strong Positive: >59 Test performed [place] [address] Director: JOVITA MCARTHUR MD Performing site QL: [employer] [place], [place] [phone] 06/12/2014 4:52 PM EDT 06/12/2014 4:52 PM EDT Narrative [facility] - 06/14/2014 4:05 PM EDT Combined order with Dr. Solo Patient's primary care provider is: Abdi Solo Abdi Solo MD LABORATORY Final Result Performing Organization Address [facility] de Phone Number [facility] * PAP TEST (06/12/2014 3:20 AM EDT) PAP Smear [id number] 06/20/2014 6:[address] [facility] Comment: GENERAL CATEGORY: OTHER (See Comment). . SPECIMEN ADEQUACY: Satisfactory for evaluation. Transformation zone component absent. . COMMENT: NEGATIVE FOR INTRAEPITHELIAL LESION. Endometrial cells, cytologically benign, are present on the Pap slide from this patient, who is greater than 40 years of age. Please correlate clinically. This finding is common during the first half of a normal menstrual cycle, and infrequently indicates a significant abnormality. Please interpret in light of available clinical information. See page 352 of the AJOG article linked at http://www.asccp.org/ConsensusGuidelines/AbnormalCervicalScreeningTests/ tabid/[email or web address]/Default.aspx for more information. APHLP/APHLP Specimen(s)/ROLL WINDER Information: THINPREP CERVICAL/ENDOCERVICAL, 20 cc of fluid Total # of Slides/Specimen: 1 RELATED LABORATORY RESULTS Ord Date: 06/12/2014 Test Name Collected Result Abnormal Range HPV high 06/12/2014 Negative Negative risk The slide was processed by the ThinPrep Imaging System, and was rescreened or reviewed by a crate opener Screened by: MARGARET GOULD, SIGNED OUT BY ELECTRONIC Server Systems Administrator SIGNATURE Signed Out by: MARGARET GOULD Server Systems Administrator Date Reported: 06/20/2014 [place] WILLMAGDA KELLY [id number] GYNECOLOGIC CYTOLOGY REPORT Printed: 06/20/2014 5:27 PM Page 1 of 1 06/12/2014 3:20 AM EDT 06/12/2014 3:20 AM EDT Diane Blanton MD PATHOLOGY Final R esult Performing Organization Address City/[facility] Co de Phone Number [facility] * HPV HIGH RISK (06/12/2014 3:20 AM EDT) Human Papillomavirus (HPV) DNA, High Risk Negative Negative 06/20/2014 5:[address] [facility] 06/12/2014 3:20 AM EDT 06/12/2014 3:20 AM EDT Diane Blanton MD LABORATORY Final R esult Performing Organization Address City/[facility] Co de Phone Number [facility] * SCREENING MAMMOGRAPHY DIGITAL (06/12/2014 [...] 216(H) <200 mg/dL 03/06/2014 4:[address] [facility] Triglyceride 88 <150 mg/dL 03/06/2014 4:[address] [facility] Cholesterol.in HDL 62 >40 mg/dL 03/06/2014 4:[address] [facility] Comment: NCEP GUIDELINES Desireable >60 mg/dL Borderline 40-59 mg/dL Undesirable <40 mg/dL LDL 136(H) <130 mg/dL 03/06/2014 4:[address] [facility] Chol/HDL Ratio 3 0 - 5 CALC 03/06/2014 4:[address] [facility] 03/06/2014 2:28 PM EDT 03/06/2014 2:28 PM EDT Narrative [facility] - 03/06/2014 12:00 AM EDT Patient's primary care provider is: Abdi Solo Abdi Solo MD LABORATORY Final Result [facility] * EKG (03/06/2014) ATTACHED DOCUMENT [...] 06/12/2014 Need for prophylactic vaccination with combined [id number] (DTP) vaccine 06/12/2014 Pain in joint, multiple [...] of nervous system and sense organs 07/04/2024 Encounter for eye exam Examination of eyes and vision 07/17/2025 History of retinal detachment Personal history of other disorders of nervous system and sense organs 07/17/2025 Aphakia, right 07/17/2025 Care Teams Exhibit Electrician Relationship Specialty Start Date End Date Unknown Pcp, Non Rmg PCP - General 10/13/22
--- OUTSIDE RECORDS SUMMARY | 2025-11-26 09:03 | XMS_ITS | Encounter Summary ---
Author Organization [facility] Address [address] [place] [address] Care Team Providers Care Prosecuting Attorney Name Role Phone Vandana Epps MD Primary Care Provider [phone] Unknown Pcp, Non Rmg Primary Care Provider Unava ilable Encounter Details Date Type Department Care Team (Late st Contact Info) Description 10/12/2017 Orders Only [facility] Adult Medicine [address] [place] [phone] Vandana Epps MD [facility] [address] [facility] [address] [place] [address] Social History Tobacco Use Types [...] Description 07/21/2026 7:30 AM EDT Office Visit [facility]. Optometry 5 [place] [phone] Navjot Jacintois, OD 5 [place] [address] Return in about 1 year (around 07/17/2026) for OV-2, DFE. documented as of this encounter Procedures * Due to [facility] law, this organization might not be [...] in this encounter Results * Due to [place] [employer] law, this organization might not be sharing negative HIV tests. * (ABNORMAL) LIPID PANEL WITH REFLEX TO DIRECT LDL (10/12/2017 1:09 PM EST) Cholesterol 193 <200 mg/dL [facility] Triglyceride 123 <150 mg/dL [facility] HDL Cholesterol 40(L) >40 mg/dL [facility] Comment: NCEP GUIDELINES Desireable >60 mg/dL Borderline 40-59 mg/dL Undesirable <40 mg/dL LDL Cholesterol 129 <130 mg/dL [facility] CHOL/HDL Ratio 5 0 - 5 CALC [facility] 10/12/2017 1:09 PM EST 10/12/2017 1:09 PM EST Narrative [facility] - 10/12/2017 2:49 PM EST Patient is not fasting Patient's primary care provider is: N/A Testing performed at: [facility], [address] [place] [address], [address], Management Development Specialist: Vikas Leung M.D. Vandana Epps MD LABORATORY Final Result [address] [address] DIRECTOR VIKAS LEUNG M.D. * CBC INCLUDES [...] GROUP PLT 265 140 - 400 K/uL [facility] 10/12/2017 1:09 PM EST 10/12/2017 1:09 PM EST Narrative [facility] - 10/12/2017 2:11 PM EST Patient is not fasting Patient's primary care provider is: N/A Testing performed at: [facility], [address] [place] [address], [address], Management Development Specialist: Vikas Leung M.D. Vandana Epps MD LAB SAME DAY RESULT Final Resu lt Performing Organization Address City/State/[facility] Co de Phone Number [address] [address] DIRECTOR VIKAS LEUNG M.D. * COMPREHENSIVE METABOLIC PANEL WITH GFR (10/12/2017 1:09 PM EST) Glucose 88 65 - 99 mg/dl [facility] Urea Nitrogen Blood (BUN) 13 7 - 25 mg/dL [facility] Creatinine 0.88 0.50 - 1.16 mg/dL [facility] Sodium 140 136 - 145 mmo/L [facility] Potassium 4.8 3.5 - 5.3 [...] Alkaline phosphatase 53 33 - 130 U/L [facility] AST (SGOT) 17 <38 U/L [facility] ALT (SGPT) 12 <47 U/L [facility] Carbon dioxide 28 23 - 33 mmol/L [facility] GFR 71 >60 ml/min [facility] Comment:If the patient is Af rican Latvian, please multiply result by 1.210 10/12/2017 1:09 PM EST 10/12/2017 1:09 PM EST Narrative [facility] - 10/12/2017 2:49 PM EST Patient is not fasting Patient's primary care provider is: N/A Testing performed at: [facility], [address] [place] [address], [address], Management Development Specialist: Vikas Leung M.D. Vandana Epps MD LABORATORY Final Result Performing Organization Address [facility] Co de Phone Number [address] [address] DIRECTOR VIKAS LEUNG M.D. * HEPATITIS B SURFACE ANTIGEN (10/12/2017 1:07 PM EST) Hepatitis B virus surface Ag NON-REACTI VE NON-REACT [facility] 10/12/2017 1:07 PM EST 10/12/2017 7:10 PM EST Narrative Resulting Agency Comment [id number] Vandana Epps MD LABORATORY Final Result Performing Organization Address [facility]/ZIP Co de Phone Number [facility] [address] [place] [phone] * SYPHILIS (FTA) ANTIBODY CASCADING REFLEX TO [...] 7:10 PM EST Narrative Resulting Agency Comment [id number] Vandana Epps MD LABORATORY Final Result Performing Organization Address City/[facility]/ZIP Co de Phone Number [facility] [address] [phone] * HEPATITIS C AB WITH REFLEX TO RNA PCR, SERUM (10/12/2017 1:07 PM EST) Hepatitis C virus Ab NON-REACTI VE NON-REACT ALEXIS [facility] Hepatitis C virus Ab Signal/Cutoff 0.02 <1.00 [facility] 10/12/2017 1:07 PM EST 10/12/2017 7:10 PM EST Narrative Resulting Agency Comment [id number] Vandana Epps MD LABORATORY Final Result Performing Organization Address [facility] de Phone Number [facility] [address] [place] [address] documented in this encounter Visit Diagnoses Diagnosis Screen for STD (sexually transmitted disease) Screening examination for venereal disease Back pain, unspecified back location, unspecified back pain laterality, unspecified chronicity Abdominal pain, unspecified abdominal location Screening for hyperlipidemia Screening for lipoid disorders documented in this encounter Care Teams Prosecuting Attorney Relationship Specialty Start Date End Date Vandana Epps MD PCP - General Internal Medicine 07/28/17 10/12/22 Unknown Pcp, Non Rmg PCP - General 10/13/22 documented as of this encounter
--- OUTSIDE RECORDS SUMMARY | 2025-11-26 09:03 | XMS_ITS | Encounter Summary ---
Author Organization [facility] Address [address] [place] [address] Care Team Providers Care Bulk Gas Specialist Name Role Phone Brad Solo MD Primary Care Provider [phone] Vandana Epps MD Primary Care Provider [phone] Unknown Pcp, Non Rmg Primary Care Provider Unava ilable Encounter Details Date Type Department Care Team (Late st Contact Info) Description 06/26/2015 Orders Only [facility] TOP SPOTTER [address] [place] [phone] Jory Womack MD [address] [place] [phone] Social History Tobacco Use Types Packs/Day Years [...] Description 07/21/2026 7:30 AM EDT Office Visit [facility]. Optometry 5 [place] [phone] Agus Jacinto, AYAAN [address] [place] [address] Return in about 1 year (around 07/17/2026) for OV-2, DFE. documented as of this encounter Procedures * Due to [place] [employer] law, this organization might not be sharing negative HIV tests. Procedure Name Priority Date/Time Associated Diagnosis Comments CULTURE, URINE, ROUTINE Routine 06/26/2015 5:24 PM EDT Dysuria URINALYSIS, COMPLETE INCLUDES DIPSTICK AND MICROSCOPIC Routine 06/26/2015 5:24 PM EDT Dysuria BV/VAGINITIS PANELDNA PROBE(AFFIRM) Routine 06/26/2015 5:23 PM EDT Vaginal discharge documented in this encounter Results * Due to [place] [employer] law, this organization might not be sharing negative HIV tests. * (ABNORMAL) CULTURE, URINE, ROUTINE (06/26/2015 5:24 PM EDT) Fabens count (Urine) >50,000 CFU/ml [facility] Bacteria culture (Urine) Mixed Culture,Repeat if Clinically Indicated(A) No Growth [facility] 06/26/2015 5:24 PM EDT 06/26/2015 5:24 PM EDT Narrative [facility] - 06/28/2015 8:11 AM EDT Patient's primary care provider is: N/A Testing performed at: [facility], [address] [place] [address], [id number], Corner Block Cutter: Vikas Leung M.D. Jory Womack MD LABORATORY Final R esult [address] [address] DIRECTOR VIKAS LEUNG M.D. * URINALYSIS, COMPLETE [...] PM EDT 06/26/2015 5:24 PM EDT Narrative [facility] - 06/26/2015 7:12 PM EDT Patient's primary care provider is: N/A Testing performed at: [facility], [address] [place] [address], [address], Corner Block Cutter: Vikas Leung M.D. Jory Womack MD LAB SAME DAY RESULT Fin al Result [address] [address] DIRECTOR VIKAS LEUNG M.D. * BV/VAGINITIS PANELDNA PROBE (06/26/2015 5:23 PM EDT) Trichomonas vaginalis rRNA (Genital) NOT DETECTED NOT DETECTED [facility] Comment:{TRICHOMONAS: {[id number]) Gardnerella vaginalis rRNA (Genital) NOT DETECTED NOT DETECTED [facility] Comment:{GARDNERELLA: {[id number]) Analisa sp rRNA (Vag) NOT DETECTED NOT DETECTED [facility] Comment:{ANALISA: {[id number]) 06/26/2015 5:23 PM EDT 06/26/2015 11:16 PM EDT Narrative Resulting Agency Comment [id number] Jory Womack MD LABORATORY Final R esult Performing Organization Address City/State/[facility] Co de Phone Number [facility] [address] [place] [address] documented in this encounter Visit Diagnoses Diagnosis Dysuria Vaginal discharge Leukorrhea, not specified as infective documented in this encounter Care Teams Bulk Gas Specialist Relationship Specialty Start Date End Date Brad Solo MD PCP - General 12/30/14 07/27/17 Vandana Epps MD PCP - General Internal Medicine 07/28/17 10/12/22 Unknown Pcp, Non Rmg PCP - General 10/13/22 documented as of this encounter
--- OUTSIDE RECORDS SUMMARY | 2025-11-26 09:03 | XMS_ITS | Encounter Summary ---
Author Organization [facility] Address [address] [place] [address] Care Team Providers Care Specimen Preparation Assistant Name Role Phone Brad Solo MD Primary Care Provider [phone] Vandana Epps MD Primary Care Provider [phone] Unknown Pcp, Non Rmg Primary Care Provider Unava ilable Encounter Details Date Type Department Care Team (Late st Contact Info) Description 09/01/2015 Orders Only [facility] [address] [place] [phone] John Oviedo MD [facility] Allergy, Asthma & Immunology [address] [place] [phone] Social History Tobacco Use Types Packs/Day Years [...] Description 07/21/2026 7:30 AM EDT Office Visit [facility]. Optometry 5 [place] [phone] gAus Jacinto, OD [address] [place] [address] Return in about 1 year (around 07/17/2026) for OV-2, DFE. documented as of this encounter Procedures * Due to [facility] law, this organization might not be [...] in this encounter Results * Due to [place] [employer] law, this organization might not be sharing negative HIV tests. * DERMATOPHAGOIDES FARINAE (D2) IGE (09/01/2015 2:10 PM EDT) Dermatophagoides Farinae(D2) IgE <0.35 kU/L [facility] Comment:{DERMATOPHAGOIDES FA RINAE (D2) IGE {[id number]) Dermatophagoides Farinae(D2) Class 0 [facility] Comment:{CLASS {[id number]) 09/01/2015 2:10 PM EDT 09/01/2015 7:51 PM EDT Narrative Resulting Agency Comment [id number] us John Oviedo MD LABORATORY Final Resu lt [facility] [address] [place] [address] * DERMATOPHAGOIDESPTERONYSSINUS (D1) IGE (09/01/2015 2:10 PM EDT) Dermatophagoidespteronyssinu s (D1) IgE <0.35 kU/L [facility] Comment:{DERMATOPHAGOIDES PT ERONYSSINUS (D1) IGE {[id number]) Dermatophagoides pteronyssin us (D1) Class 0 [facility] Comment:{CLASS {[id number]) 09/01/2015 2:10 PM EDT 09/01/2015 7:51 PM EDT Narrative Resulting Agency Comment [id number] us John Oviedo MD LABORATORY Final Resu lt [facility] [address] [place] [address] documented in this encounter Visit Diagnoses Diagnosis Sinus congestion Other diseases of nasal cavity and sinuses PND (post-nasal drip) Postnasal drip Allergic rhinitis due to pollen Gastroesophageal reflux disease, esophagitis presence not specified documented in this encounter Care Teams Specimen Preparation Assistant Relationship Specialty Start Date End Date Brad Solo MD PCP - General 12/30/14 07/27/17 Vandana Epps MD PCP - General Internal Medicine 07/28/17 10/12/22 Unknown Pcp, Non Rmg PCP - General 10/13/22 documented as of this encounter
--- OUTSIDE RECORDS SUMMARY | 2025-11-26 09:04 | XMS_ITS | Encounter Summary ---
Author Organization [facility] Address [address] [place] [address] Care Team Providers Care Sub Master Name Role Phone Brad Solo MD Primary Care Provider [phone] Vandana Epps MD Primary Care Provider [phone] Unknown Pcp, Non Rmg Primary Care Provider Unava ilable Encounter Details Date Type Department Care Team (Late st Contact Info) Description 08/23/2016 Orders Only [facility] MOTOR WINDER [address] [place] [phone] Jory Womack MD [address] [place] [phone] Social History Tobacco Use Types Packs/Day Years [...] Description 07/21/2026 7:30 AM EDT Office Visit [facility]. Optometry 5 [place] [phone] Agus Jacinto, AYAAN [address] [place] [address] Return in about 1 year (around 07/17/2026) for OV-2, DFE. documented as of this encounter Visit Diagnoses Not on filedocumented in this encounter Care Teams Sub Master Relationship Specialty Start Date End Date Brad Solo MD PCP - General 12/30/14 07/27/17 Vandana Epps MD PCP - General Internal Medicine 07/28/17 10/12/22 Unknown Pcp, Non Rmg PCP - General 10/13/22 documented as of this encounter
--- OUTSIDE RECORDS SUMMARY | 2025-11-26 09:04 | XMS_ITS | Encounter Summary ---
Author Organization [facility] Address [address] [place] [address] Care Team Providers Care Line Assembler Name Role Phone Brad Solo MD Primary Care Provider [phone] Vandana Epps MD Primary Care Provider [phone] Unknown Pcp, Non Rmg Primary Care Provider Unava ilable Encounter Details Date Type Department Care Team (Late st Contact Info) Description 10/28/2015 Orders Only [facility] [address] [place] [phone] John Oviedo MD [facility] Allergy, Asthma & Immunology [address] [place] [phone] Social History Tobacco Use Types Packs/Day Years [...] Description 07/21/2026 7:30 AM EDT Office Visit [facility] Optometry 5 [place] [phone] Agus Jacinto, OD [address] [place] [address] Return in about 1 year (around 07/17/2026) for OV-2, DFE. documented as of this encounter Procedures * Due to [facility] law, this organization might not be sharing negative HIV tests. Procedure Name Priority Date/Time Associated Diagnosis Comments HELICOBACTER PYLORI UREA BREATH TEST (UBIT-(R)) Routine 10/28/2015 8:57 AM EST Gastroesophageal reflux disease without esophagitis documented in this encounter Results * Due to [place] [employer] law, this organization might not be sharing negative HIV tests. * HELICOBACTER PYLORI UREA BREATH TEST (UBIT-(R)) (10/28/2015 8:57 AM EST) Urea Breath Test, Infra-Red (Ubit) NOT DETECTED NOT DETECTED [facility] Comment: {HELICOBACTER PYLORI, UREA BREATH TEST {[id number]) Antimicrobials, proton pump inhibitors, and bismuth preparations are known to suppress H. pylori, and ingestion of these prior to H. pylori diagnostic testing may lead to false negative results. If clinically indicated, the test may be repeated on a new specimen obtained two weeks after discontinuing treatment. 10/28/2015 8:57 AM EST 10/28/2015 2:27 PM EST Narrative Resulting Agency Comment [id number] us John Oviedo MD LABORATORY Final Resu lt [facility] [address] [place] [address] documented in this encounter Visit Diagnoses Diagnosis Gastroesophageal reflux disease without esophagitis Esophageal reflux documented in this encounter Care Teams Line Assembler Relationship Specialty Start Date End Date Brad Solo MD PCP - General 12/30/14 07/27/17 Vandana Epps MD PCP - General Internal Medicine 07/28/17 10/12/22 Unknown Pcp, Non Rmg PCP - General 10/13/22 documented as of this encounter
--- OUTSIDE RECORDS SUMMARY | 2025-11-26 09:04 | XMS_ITS | Encounter Summary ---
Author Organization [facility] Address [address] [place] [address] Care Team Providers Care Cloth Finishing Range Operator Chief Name Role Phone Vandana Epps MD Primary Care Provider [phone] Unknown Pcp, Non Rmg Primary Care Provider Unava ilable Reason for Visit * Reason Comments Shoulder Pain L shoulder pain x 4 months and into elbow Encounter Details Date Type Department Care Team (Late st Contact Info) Description 12/13/2018 Orders Only [facility] Orthopedic Surgery-Entrance C [address] [place] [address] Car Rodriguez N, DO [address] [place] [address] Social History Tobacco Use Types Packs/Day Years [...] Description 07/21/2026 7:30 AM EDT Office Visit [facility]. Optometry 5 [place] [phone] Agus Jacinto, OD [address] [place] [address] Return in about 1 year (around 07/17/2026) for OV-2, DFE. documented as of this encounter Results * Due to [place] state law, this organization might not be [...] chronicity documented in this encounter Care Teams Cloth Finishing Range Operator Chief Relationship Specialty Start Date End Date Vandana Epps MD PCP - General Internal Medicine 8/31/17 11/15/22 Unknown Pcp, Non Rmg PCP - General 10/13/22 documented as of this encounter
--- OUTSIDE RECORDS SUMMARY | 2025-11-26 09:04 | XMS_ITS | Encounter Summary ---
Author Organization [facility] Address [address] [place] [address] Care Team Providers Care Bandoleer Packer Name Role Phone Brad Solo MD Primary Care Provider [phone] Vandana Epps MD Primary Care Provider [phone] Unknown Pcp, Non Rmg Primary Care Provider Unava ilable Encounter Details Date Type Department Care Team (Late st Contact Info) Description 08/19/2016 Orders Only [facility] Adult Medicine [address] [place] [phone] Brad Solo MD [address] [address] Social History Tobacco Use Types Packs/Day Years [...] Description 07/21/2026 7:30 AM EDT Office Visit [facility]. Optometry 5 [place] [phone] Agus Jacinto, AYAAN [address] [place] [address] Return in about 1 year (around 07/17/2026) for OV-2, DFE. documented as of this encounter Procedures * Due to [place] state [...] TSH (Thyrotropin) 2.69 0.40 - 4.50 uIU/ml [facility] 08/19/2016 2:08 PM EDT 08/19/2016 2:08 PM EDT Narrative [facility] - 08/19/2016 5:09 PM EDT not fasting Patient's primary care provider is: N/A Testing performed at: [facility], [address] [place] [address], [address], Director Of Enterprise Architecture: Vikas Leung M.D. us Brad Solo MD LABORATORY Final Result [address] [address] DIRECTOR VIKAS E. LEUNG, M.D. * VITAMIN D, 25-HYDROXY, TOTAL, IMMUNOASSAY (08/19/2016 2:08 PM EDT) VIT D, 25-OH, TOTAL 52 >29 ng/mL [facility] Comment: Vitamin D Status 25-OH Vitamin D: Deficiency: <20 ng/mL Insufficiency: 20-29 ng/mL Optimal: > or = 30 ng/mL 08/19/2016 2:08 PM EDT 08/19/2016 2:08 PM EDT Narrative [facility] - 08/19/2016 5:09 PM EDT not fasting Patient's primary care provider is: N/A Testing performed at: [facility], [address] [place] [address], [address], Director Of Enterprise Architecture: Vikas Leung M.D. Brad Solo MD LABORATORY Final Result [address] [address] DIRECTOR VIKAS LEUNG M.D. * (ABNORMAL) LIPID PANEL WITH REFLEX TO DIRECT LDL (08/19/2016 2:08 PM EDT) Cholesterol 215(H) <200 mg/dL [facility] Triglyceride 243(H) <150 mg/dL [facility] HDL Cholesterol 36(L) >40 mg/dL [facility] Comment: NCEP GUIDELINES Desireable >60 mg/dL Borderline 40-59 mg/dL Undesirable <40 mg/dL LDL Cholesterol 130(H) <130 mg/dL [facility] CHOL/HDL Ratio 6(H) 0 - 5 CALC [facility] 08/19/2016 2:08 PM EDT 08/19/2016 2:08 PM EDT [facility] - 08/19/2016 5:09 PM EDT not fasting Patient's primary care provider is: N/A Testing performed at: [facility], [address] [place] [address], [address], Director Of Enterprise Architecture: Vikas Leung M.D. Brad Solo MD LABORATORY Final Result [address] [address] DIRECTOR VIKAS LEUNG M.D. * (ABNORMAL) COMPREHENSIVE [...] rican Afghan, please multiply result by 1.210 08/19/2016 2:08 PM EDT 08/19/2016 2:08 PM EDT Narrative [facility] - 08/19/2016 5:09 PM EDT not fasting Patient's primary care provider is: N/A Testing performed at: [facility], [address] [place] [address], [address], Director Of Enterprise Architecture: Vikas Leung M.D. Brad Solo MD LABORATORY Final Result [facility] [address] [place] [address] DIRECTOR VIKAS LEUNG M.D. * CBC INCLUDES [...] GROUP MCHC 33.1 32.0 - 36.0 g/dL [facility] RDW 12.4 11.0 - 15.0 % [facility] PLT 262 140 - 400 K/uL [facility] 08/19/2016 2:08 PM EDT 08/19/2016 2:08 PM EDT Narrative [facility] - 08/19/2016 2:48 PM EDT not fasting Patient's primary care provider is: N/A Testing performed at: [facility], [address] [place] [address], [address], Director Of Enterprise Architecture: Vikas Leung M.D. us Brad Solo MD LAB SAME DAY RESULT Final Resu lt [address] [address] DIRECTOR VIKAS LEUNG M.D. documented in this encounter Visit Diagnoses Diagnosis Gastroesophageal reflux disease without esophagitis Esophageal reflux Screening cholesterol level Screening for lipoid disorders Vitamin D deficiency Anxiety Anxiety state, unspecified documented in this encounter Care Teams Bandoleer Packer Relationship Specialty Start Date End Date Brad Solo MD PCP - General 12/30/14 07/27/17 Vandana Epps MD PCP - General Internal Medicine 07/28/17 10/12/22 Unknown Pcp, Non Rmg PCP - General 10/13/22 documented as of this encounter
--- OUTSIDE RECORDS SUMMARY | 2025-11-26 09:04 | XMS_ITS | Encounter Summary ---
Author Organization [facility] Address [address] [place] [address] Care Team Providers Care Body Design Checker Name Role Phone Brad Solo MD Primary Care Provider [phone] Vandana Epps MD Primary Care Provider [phone] Unknown Pcp, Non Rmg Primary Care Provider Unava ilable Encounter Details Date Type Department Care Team (Late st Contact Info) Description 06/14/2017 Orders Only [facility] Adult Medicine [address] [place] [phone] Brad Solo MD [address] [address] Social History Tobacco Use Types Packs/Day Years [...] Office Visit [facility]. Optometry [address] [place] [phone] Agus Jacinto, AYAAN [address] [place] [address] Return in about 1 year (around 07/17/2026) for OV-2, DFE. documented as of this encounter Procedures * Due to [place] law, this organization might not be sharing [...] this encounter Results * Due to [place] law, this organization might not be sharing [...] GROUP Calcium 9.7 8.5 - 10.4 mg/dL [facility] Protein Total (Serum) 7.2 6.0 - 8.3 g/dL [facility] Albumin 4.3 3.5 - 5.2 g/dL [facility] Globulin 3 2 - 4 G/DL [facility] Bilirubin Total 0.22 0.00 - 1.20 mg/dL [facility] Alkaline phosphatase 48 33 - 130 U/L [facility] AST (SGOT) 15 <38 U/L [facility] ALT (SGPT) 12 <47 U/L [facility] Carbon dioxide 27 23 - 33 mmol/L [facility] GFR 92 >60 ml/min [facility] Comment:If the patient is Af rican Nauruan, please multiply result by 1.210 06/14/2017 11:3 2 AM EDT 06/14/2017 11:32 AM EDT Narrative [facility] - 06/14/2017 1:46 PM EDT Patient's primary care provider is: N/A Testing performed at: [facility], [address] [place] [address], [address], Rn Building: Vikas Leung M.D. Brad Solo MD LABORATORY Final Result [address] [address] DIRECTOR VIKAS LEUNG M.D. * (ABNORMAL) CBC INCLUDES DIFFERENTIAL AND PLATELET COUNT (06/14/2017 11:32 AM EDT) WBC 10.6 3.8 - 10.8 K/uL [facility] Neutrophils # 8.2(H) 1.5 - 7.8 K/uL [facility] Immature Granulocytes # 0.02 0.00 - 0.07 K/uL [facility] [...] 2 AM EDT 06/14/2017 11:32 AM EDT [facility] - 06/14/2017 12:12 PM EDT Patient's primary care provider is: N/A Testing performed at: [facility], [address] [place] [address], [address], Rn Building: Vikas Leung M.D. us Brad Solo MD LAB SAME DAY RESULT Final Resu lt [address] [address] DIRECTOR VIKAS LEUNG M.D. * ERYTHROCYTE SEDIMENTATION RATE (ESR), ADRIANA (06/14/2017 11:32 AM EDT) Sedimentation Rate Eliceo (ESR) 17 0 - 20 mm/hr [facility] 06/14/2017 11:3 2 AM EDT 06/14/2017 11:32 AM EDT Narrative [facility] - 06/14/2017 1:54 PM EDT Patient's primary care provider is: N/A Testing performed at: [facility], [address] [place] [address], [address], Rn Building: Vikas Leung M.D. us Brad Solo MD LAB SAME DAY RESULT Final Resu lt Performing Organization Address [facility]/ZIP Co de Phone Number [address] [address] DIRECTOR VIKAS LEUNG M.D. * NICHO SCREEN [...] for interpretation of all antibodies in the [place], prevalence, and association with diseases at http://education.[employer]/ faq/HFW036 06/14/2017 11:2 9 AM EDT 06/14/2017 8:03 PM EDT Narrative Resulting Agency Comment [id number] us Brad Solo MD LABORATORY Final Result Performing Organization Address [facility]/ZIP Co de Phone Number [facility] [address] [place] [address] * CYCLIC CITRULLINATEDPEPTIDE CCP AB IGG (06/14/2017 11:29 AM EDT) CCP Ab, IgG <16 UNITS [facility] Comment: Reference Range Negative: <20 Weak Positive: 20-39 Moderate Positive: 40-59 Strong Positive: >59 06/14/2017 11:2 9 AM EDT 06/14/2017 8:03 PM EDT Narrative Resulting Agency Comment [id number] us Brad Solo MD LABORATORY Final Result [facility] [address] [place] [address] * (ABNORMAL) RHEUMATOID FACTOR, SERUM (06/14/2017 11:29 AM EDT) Rheumatoid Factor (Quant) 26(H) <14 IU/mL [facility] 06/14/2017 11:2 9 AM EDT 06/14/2017 8:03 PM EDT Narrative Resulting Agency Comment [id number] Brad Solo MD LABORATORY Final Result Performing Organization Address [facility] Co de Phone Number [facility] [address] [place] [address] * C-REACTIVE PROTEIN (CRP) - INFLAMMATION (06/14/2017 11:29 AM EDT) C reactive protein <0.10 <0.80 mg/dL [facility] Comment: Please be advised that patients taking Carboxypenicillins may exhibit falsely decreased C-Reactive Protein levels due to an analytical interference in this assay. 06/14/2017 11:2 9 AM EDT 06/14/2017 8:03 PM EDT Narrative Resulting Agency Comment [id number] Brad Solo MD LABORATORY Final Result Performing Organization Address [facility] Co de Phone Number [facility] [address] [place] [address] documented in this encounter Visit Diagnoses Diagnosis Multiple joint pain Pain in joint, multiple sites Chronic cough Cough Gastroesophageal reflux disease, esophagitis presence not specified documented in this encounter Care Teams Body Design Checker Relationship Specialty Start Date End Date Brad Solo MD PCP - General 12/30/14 07/27/17 Vandana Epps MD PCP - General Internal Medicine 07/28/17 10/12/22 Unknown Pcp, Non Rmg PCP - General 10/13/22 documented as of this encounter
--- OUTSIDE RECORDS SUMMARY | 2025-11-26 09:04 | XMS_ITS | Encounter Summary ---
Author Organization [facility] Address [address] [place] [address] Care Team Providers Care Customer Solutions Supervisor Name Role Phone Vandana Epps MD Primary Care Provider [phone] Unknown Pcp, Non Rmg Primary Care Provider Unava ilable Encounter Details Date Type Department Care Team (Late st Contact Info) Description 10/18/2018 Orders Only [facility] Adult Medicine [address] [place] [phone] Vandana Epps MD [facility] 169 [facility] [address] [place] [phone] Social History Tobacco Use Types Packs/Day Years [...] Description 07/21/2026 7:30 AM EDT Office Visit [facility] Optometry 5 [place] [phone] Agus Jacinto, AYAAN [address] [place] [address] Return in about 1 year (around 07/17/2026) for OV-2, DFE. documented as of this encounter Procedures * Due to [place] law, this organization might not be sharing [...] in this encounter Results * Due to [place] law, this organization might not be sharing [...] is not present Confirmed by Batsheva Tamez ([id number]), editor farm journal RIKY LEWIS ([id number]) on 10/24/2018 8:02:37 AM MUSE EKG SYSTEM 10/18/2018 10:3 9 AM EST 10/24/2018 8:02 AM EST us Vandana Epps MD CARDIOVASCULAR-WITH INBSKT RTG Final Result [facility] E[facility] SYSTEM * (ABNORMAL) LIPID PANEL WITH REFLEX TO DIRECT LDL (10/18/2018 10:17 AM EST) Cholesterol 167 <200 mg/dL [facility] Triglyceride 112 <150 mg/dL [facility] HDL Cholesterol 40(L) >40 mg/dL [facility] Comment: NCEP GUIDELINES Desireable >60 mg/dL Borderline 40-59 mg/dL Undesirable <40 mg/dL LDL Cholesterol 104 <130 mg/dL [facility] CHOL/HDL Ratio 4 0 - 5 CALC [facility] 10/18/2018 10:1 7 AM EST 10/18/2018 10:17 AM EST [facility]ative [facility] 10/18/2018 1:38 PM EST non fasting Patient's primary care provider is: N/A Testing performed at: [facility], [address] [place] [address], [address], Lay Out Carpenter: Seth Gutierrez MD us Vandana Epps MD LABORATORY Final Result Performing Organization Address [facility] de Phone Number [address] [address] DIRECTOR Seth Gutierrez MD * THYROID STIMULATING HORMONE (TSH) WITH FREE T4 REFLEX, SERUM (10/18/2018 10:17 AM EST) TSH (Thyrotropin) 2.16 0.40 - 4.50 uIU/ml [facility] 10/18/2018 10:1 7 AM EST 10/18/2018 10:17 AM EST Narrative [facility] - 10/18/2018 1:38 PM EST non fasting Patient's primary care provider is: N/A Testing performed at: [facility], [address] [place] [address], [address], Lay Out Carpenter: Seth Gutierrez MD us Vandana Epps MD LABORATORY Final Result Performing Organization Address [facility] Co de Phone Number [address] [address] DIRECTOR Seth Gutierrez MD * COMPREHENSIVE METABOLIC [...] MEDICAL GROUP AST (SGOT) 15 <38 U/L [facility] ALT (SGPT) 13 <47 U/L [facility] Carbon dioxide 30 23 - 33 mmol/L [facility] GFR 81 >60 ml/min [facility] Comment:If the patient is Af rican Malian, please multiply result by 1.210 10/18/2018 10:1 7 AM EST 10/18/2018 10:17 AM EST Narrative [facility] - 10/18/2018 1:38 PM EST non fasting Patient's primary care provider is: N/A Testing performed at: [facility], [address] [place] [address], [address], Lay Out Carpenter: Seth Gutierrez MD Vandana Epps MD LABORATORY Final Result [address] [address] DIRECTOR Seth Gutierrez MD * CBC INCLUDES [...] AM EST 10/18/2018 10:17 AM EST Narrative [facility] - 10/18/2018 12:25 PM EST non fasting Patient's primary care provider is: N/A Testing performed at: [facility], [address] [place] [address], [address], Lay Out Carpenter: Seth Gutierrez MD Vandana Epps MD LAB SAME DAY RESULT Final Resu lt [address] [address] DIRECTOR Seth Gutierrez MD documented in this encounter Visit Diagnoses Diagnosis Weight loss Loss of weight Screening for hypercholesterolemia Screening for lipoid disorders Chest pain, unspecified type documented in this encounter Care Teams Customer Solutions Supervisor Relationship Specialty Start Date End Date Vandana Epps MD PCP - General Internal Medicine 07/28/17 10/12/22 Unknown Pcp, Non Rmg PCP - General 10/13/22 documented as of this encounter
--- OUTSIDE RECORDS SUMMARY | 2025-11-26 09:04 | XMS_ITS | Encounter Summary ---
Author Organization [facility] Address [address] [place] [address] Care Team Providers Care International Marketing Executive Name Role Phone Brad Solo MD Primary Care Provider [phone] Vandana Epps MD Primary Care Provider [phone] Unknown Pcp, Non Rmg Primary Care Provider Unava ilable Encounter Details Date Type Department Care Team (Late st Contact Info) Description 10/06/2016 Orders Only [facility] CYBER SECURITY ENGINEER [address] [place] [phone] Cintia Gómez NP Social History Tobacco Use [...] of this encounter Progress Notes * Bryanna Louis RN - 10/11/2016 8:23 AM ESTQuick Note: To BAKERY HELPER for review, problem list updated, normal letter sent. documented in this encounter Plan of Treatment Upcoming Encounters Date Type Department Care Team (Late st Contact Info) Description 07/21/2026 7:30 AM EDT Office Visit [facility]. Optometry [address] [place] [address] Agus Jacinto OD [address] [place] [address] Return in about 1 year (around 07/17/2026) for OV-2, DFE. documented as of this encounter Procedures * Due to [place] [employer] law, this organization might not be sharing negative HIV tests. Procedure Name Priority Date/Time Associated Diagnosis Comments THINPREP TIS PAP AND HPV MRNA E6/E7 REFLEX HPV 16,18/45 Routine 10/06/2016 4:27 PM EST Encounter for gynecological examination without abnormal finding documented in this encounter Results * Due to [place] [employer] law, this organization might not be sharing negative HIV tests. * THINPREP TIS PAP AND HPV MRNA E6/E7 REFLEX HPV 16,18/45 (10/06/2016 4:27 PM EST) Clinical information none given [facility] Comment:{CLINICAL INFORMATIO N: {[id number]) Date last menstrual period 09/30/16 [facility] Comment:{LMP: {[id number]) Date of previous PAP smear NONE GIVEN [facility] Comment:{PREV. PAP: {[id number]) Date of previous biopsy NONE GIVEN [facility] Comment:{PREV. BX: {[id number]) Specimen source (Cvx/Vag) Cervix [facility] Comment:{SOURCE: {[id number]) Statement of Adequacy (Cvx/Vag) Satisfactory for evaluation. Endocervical/rosario sformation zone component absent. [facility] Comment:{STATEMENT OF ADEQUA CY: {[id number]) Cytology, Pap Smear Negative for intraepithelial lesion or malignancy. [facility] Comment:{INTERPRETATION/RESU LT: {[id number]) Cytology study comment (Cvx/Vag) This Pap test has been evaluated with computer assisted technology. [facility] Comment:{COMMENT: {[id number]) Supervisor Dry Cleaning (Cvx/Vag) MXD, CT (ASCP) CT screening location: [place] [address] [facility] Comment:{ANTITANK ASSAULT GUNNER: { [id number]) HPV MRNA E6/E7 Not Detected Not Detected [facility] Comment: {HPV mRNA E6/E7 {[id number]) This test was performed using the APTIMA HPV Assay ([employer] This assay detects E6/E7 viral messenger RNA (mRNA) from 14 high-risk HPV types (16,18,31,33,35,39,45,51,52,56,58,59,66,68). 10/06/2016 4:27 PM EST 10/07/2016 2:45 AM EST Narrative Resulting Agency Comment [id number] Cintia [facility] BAKERY HELPER PATHOLOGY-INTERFACED Final R esult Performing Organization Address City/State/[facility] Co de Phone Number [facility] [address] [place] [address] documented in this encounter Visit Diagnoses Diagnosis Encounter for gynecological examination without abnormal finding Routine gynecological examination documented in this encounter Care Teams International Marketing Executive Relationship Specialty Start Date End Date Brad Solo MD PCP - General 12/30/14 07/27/17 Vandana Epps MD PCP - General Internal Medicine 07/28/17 10/12/22 Unknown Pcp, Non Rmg PCP - General 10/13/22 documented as of this encounter
--- OUTSIDE RECORDS SUMMARY | 2025-11-26 09:04 | XMS_ITS | Encounter Summary ---
Author Organization [facility] Address [address] [place] [address] Care Team Providers Care Automotive Parts Manager Name Role Phone Brad Solo MD Primary Care Provider [phone] Vandana Epps MD Primary Care Provider [phone] Unknown Pcp, Non Rmg Primary Care Provider Unava ilable Reason for Referral * CONSULT AND TREATMENT (Routine) - Closed Specialty Diagnoses / Procedures Referred By Contac t Referred To Contact Mammography Diagnoses screening Procedures REQUEST FOR MAMMOGRAPHY BILATERAL(DX: SCREENING FOR BREAST CANCER Z12.31)(1 YR FROM LAST) NON-FC Brad Solo MD Phone: tel: fax: [facility] Referral ID Status Reason Start Date Expiration Date V isits Requested Visits Authorized [id number] Closed Continuity of Care 08/19/2017 1 1 Encounter Details Date Type Department Care Team (Late st Contact Info) Description 08/24/2016 Orders Only [facility] Adult Medicine [address] [place] [phone] Brad Solo MD [address] [address] Social History Tobacco Use Types Packs/Day Years [...] Visit [facility]. Optometry [address] [place] [address] Agus Jacinto, OD [address] [place] [address] Return in about 1 year (around 07/17/2026) for OV-2, DFE. Scheduled Orders Name Type Priority Associated Diagnoses Orde r Schedule REQUEST FOR MAMMOGRAPHY BILATERAL(DX: SCREENING FOR BREAST CANCER Z12.31)(1 YR FROM LAST) NON-FC Imaging Routine Expected: 2016 documented as of this encounter Visit Diagnoses Not on filedocumented in this encounter Care Teams Automotive Parts Manager Relationship Specialty Start Date End Date Brad Solo MD PCP - General 12/30/14 07/27/17 Vandana Epps MD PCP - General Internal Medicine 07/28/17 10/12/22 Unknown Pcp, Non Rmg PCP - General 10/13/22 documented as of this encounter
--- OUTSIDE RECORDS SUMMARY | 2025-11-26 09:04 | XMS_ITS | Encounter Summary ---
Author Organization [facility] Address [address] [place] [address] Care Team Providers Care Setter Up Name Role Phone Vandana Epps MD Primary Care Provider [phone] Unknown Pcp, Non Rmg Primary Care Provider Unava ilable Reason for Visit * Reason Comments E-prescribing Refill Request Encounter Details Date Type Department Care Team ([facility] st Contact Info) Description 08/22/2019 Refill [facility] Adult Medicine [address] [place] [phone] Vandana Epps MD [facility] 169 [facility] [address] [place] [address] E-prescribing Refill Request Social History [...] encounter Miscellaneous Notes * Telephone Encounter - Lucian Fernandezsamdirk - 08/23/2019 8:54 AM EDT Any special requests or concerns? Nasal spray due around 09/21/19. Faxed/E-prescribed medication renewal request(s) for Matilde Jung 53 y.o. female received from pharmacy. Verified and Confirmed pharmacy for patient. Last CPE with this specialty: 10/18/2018 Last OV with this specialty: 06/13/2019 Next OV: Future Appointments Date Time Provider Department Phone 10/23/2019 1:00 PM Vandana Epps MD [facility] Adult Medicine [phone] 10/23/2019 2:00 PM Jory Womack MD [facility] [phone] Pertinent lab results: No labs suggested for [...] Office Visit [facility]. Optometry [address] [place] [address] Agus Jacinto, OD [address] [place] [address] Return in about 1 year (around 07/17/2026) for OV-2, DFE. documented as of this encounter Visit Diagnoses Diagnosis Postnasal drip Chronic cough Cough documented in this encounter Care Teams Setter Up Relationship Specialty Start Date End Date Vandana Epps MD PCP - General Internal Medicine 07/28/17 10/12/22 Unknown Pcp, Non Rmg PCP - General 10/13/22 documented as of this encounter
--- OUTSIDE RECORDS SUMMARY | 2025-11-26 09:04 | XMS_ITS | Encounter Summary ---
Author Organization [facility] Address [address] [place] [address] Care Team Providers Care Map And Chart Mounter Name Role Phone Vandana Epps MD Primary Care Provider [phone] Unknown Pcp, Non Rmg Primary Care Provider Unava ilable Reason for Visit * Reason Comments E-prescribing Refill Request Encounter Details Date Type Department Care Team ([facility] st Contact Info) Description 06/24/2020 Refill [facility] Adult Medicine [address] [place] [phone] Vandana Epps MD [facility] 169 [facility] [address] [place] [address] E-prescribing Refill Request Social History [...] Famotidine 20 MG Oral Tablet (PEPCID) Order: [id number] E-Prescribing Status: Receipt confirmed by pharmacy (02/28/2020 ??4:44 PM EDT) Order Providers Faxed/E-prescribed medication renewal request(s) for Matilde Jung 54 y.o. female received from pharmacy. Verified and Confirmed pharmacy for patient. Last CPE with this specialty: 10/23/2019 Last OV with this specialty: 10/23/2019 Next OV: Future Appointments Date Time Provider Department Phone 08/20/20 1:30 PM Eloy Pritchard MD [facility] [address] Pertinent lab results: [...] Description 07/21/2026 7:30 AM EDT Office Visit [facility]. Optometry [address] [place] [address] Agus Jacinto, OD [address] [place] [address] Return in about 1 year (around 07/17/2026) for OV-2, DFE. documented as of this encounter Visit Diagnoses Not on filedocumented in this encounter Care Teams Map And Chart Mounter Relationship Specialty Start Date End Date Vandana Epps MD PCP - General Internal Medicine 07/28/17 10/12/22 Unknown Pcp, Non Rmg PCP - General 10/13/22 documented as of this encounter
--- OUTSIDE RECORDS SUMMARY | 2025-11-26 09:04 | XMS_ITS | Encounter Summary ---
Author Organization [facility] Address [address] [place] [address] Care Team Providers Care Material Yard Clerk Name Role Phone Vandana Epps MD Primary Care Provider [phone] Unknown Pcp, Non Rmg Primary Care Provider Unava ilable Reason for Visit * Reason Comments E-prescribing Refill Request Encounter Details Date Type Department Care Team ([facility] st Contact Info) Description 09/03/2020 Refill [facility] Adult Medicine [address] [place] [phone] Vandana Epps MD [facility] 169 [facility] [address] [place] [address] E-prescribing Refill Request Social History [...] Propionate 50 MCG/ACT Nasal Suspension (FLONASE) Order: [id number] . Faxed/E-prescribed medication renewal request(s) for Matilde Jung 54 y.o. female received from pharmacy. Verified and Confirmed pharmacy for patient. Last CPE with this specialty: 10/23/2019 Last OV with this specialty: 10/23/2019 Next OV: Future Appointments Date Time Provider Department Phone 09/10/20 1:15 PM CARMEL Gutierrez [facility] Pulmonary [address] 02/11/21 1:20 PM Alexandra Cancino OD [facility] Services [phone] Pertinent lab results: No labs suggested for [...] Description 07/21/2026 7:30 AM EDT Office Visit [facility] Opt[facility] [address] [place] [address] Agus Jacinto, OD [address] [place] [address] Return in about 1 year (around 07/17/2026) for OV-2, DFE. documented as of this encounter Visit Diagnoses Diagnosis Postnasal drip Chronic cough Cough documented in this encounter Care Teams Material Yard Clerk Relationship Specialty Start Date End Date Vandana Epps MD PCP - General Internal Medicine 07/28/17 10/12/22 Unknown Pcp, Non Rmg PCP - General 10/13/22 documented as of this encounter
== END 2025-11-26 07:32 | disposition home or self-care (01) ==
LOC: HO.MAMMO 07:31
PROVIDERS: PCP Internal Medicine; Visit Provider Internal Medicine
DX: Z12.31 Encounter for screening mammogram for malignant neoplasm of breast (principal)
CPT/HCPCS: 77063; 77067